=== PATIENT | female | born 1955 | race Caucasian/White ===

== ENCOUNTER → 2016-10-24 | Day surgery (SDC) | payer OTHER ==
[2016-09-26 11:13] VITALS: Ht 162.6 cm; Wt 116.2 kg
--- NOTE | 2016-09-26 11:42 | PAT Medication Instructions ---
Service Date Sep 26, 2016. Current Home Medication List Albuterol Inhaler (Ventolin Inhaler), 2 PUFFS INH Q4HR PRN Aspirin Enteric Coated (Ecotrin Or Generic), 81 MG PO QAM Ezetimibe (Zetia), 10 MG PO QAM Furosemide (Lasix), 40 MG PO DAILY PRN for edema Insulin Aspart (Novolog), 0 SC TIDM Insulin Glargine (Lantus *), 37 UNITS SC QAM Losartan Potassium (Cozaar), 100 MG PO QAM Meclizine HCl (Meclizine HCl), 1 TAB PO TID PRN for PRN Metformin Hcl (Glucophage), 1,000 MG PO BID Metoprolol Tartrate (Lopressor) (Lopressor), 50 MG PO BID Nifedipine Ext Rel (Procardia Xl Ext Rel), 60 MG PO QAM Simvastatin (Zocor), 80 MG PO QAM Medication Instructions For Your Scheduled Surgery - Check with surgeon for instructions: Aspirin Enteric Coated (Ecotrin Or Generic), 81 MG PO QAM - Hold the following medications 48 hours prior to surgery: Metformin Hcl (Glucophage), 1,000 MG PO BID - Hold the following medications the morning of surgery: Losartan Potassium (Cozaar), 100 MG PO QAM Insulin Aspart (Novolog), 0 SC TIDM Furosemide (Lasix), 40 MG PO DAILY PRN for edema Ezetimibe (Zetia), 10 MG PO QAM - Take the following medications the morning of surgery with a sip of water: Simvastatin (Zocor), 80 MG PO QAM Nifedipine Ext Rel (Procardia Xl Ext Rel), 60 MG PO QAM Metoprolol Tartrate (Lopressor) (Lopressor), 50 MG PO BID Meclizine HCl (Meclizine HCl), 1 TAB PO TID PRN for PRN (if needed) Albuterol Inhaler (Ventolin Inhaler), 2 PUFFS INH Q4HR PRN (bring with you to hospital morning of surgery) - Take the following medications as scheduled the night before surgery: Metoprolol Tartrate (Lopressor) (Lopressor), 50 MG PO BID Meclizine HCl (Meclizine HCl), 1 TAB PO TID PRN for PRN (if needed) Albuterol Inhaler (Ventolin Inhaler), 2 PUFFS INH Q4HR PRN (if needed) - For Insulin Dependent Diabetic patients: Test blood sugar A.M. of surgery. - If Blood sugar greater than 150, take half of your regular dose of: Insulin Glargine (Lantus *), take 18 units - If Blood sugar less than 150, do not take any: Insulin Glargine (Lantus *) If you have any questions please call us at [phone] (Shamika Zuluaga PA-C ) or [phone] or [phone]
[~2016-10-24] VITALS: Ht 162.6 cm; Wt 116.2 kg
[~2016-10-24] MED LIST: ALBUAER19 INH; ASPI81TA21 PO; ATROPINE SULFATE 0.1 MG/ML 5ML SYR IV PRN; BUPIVACAINE 0.5 % 5 MG/1 ML PF 10ML VIAL ONE; CEFAZOLIN IV 2,000 MG/60 ML D5W IV ONE; CLINDAMYCIN PHOS 150 MG/ML 2 ML VIAL IV SCH; EZET10TA63 PO; EpHEDrine SULFATE INJ 50 MG/ML AMP IV PRN; FENTANYL CITRATE INJ 50 MCG/1 ML 2 ML VIAL IV PRN; FENTANYL CITRATE INJ 50 MCG/1 ML 2 ML VIAL ONE; HYDR-5688 PO; INSDGIPEN SC; LACTATED RINGER'S 1000ML 1,000 ML IV SCH; LIDOCAINE 2% 20 MG/ML 5ML SYR ONE; LIDOCAINE HCL 1% 20 ML VIAL ONE; LOSA100T65 PO; LSX/40 PO; MECL1TAB40 PO; METF1000 PO; METO50TA16 PO; MIDAZOLAM HCL 1 MG/ML 2ML VIAL ONE; NIFE60TA57 PO; NURSING VERBAL MED ORDER ONE; NVLGI SC; ONDANSETRON INJ 2 MG/ML 2 ML VIAL IV PRN; OXYCODONE/ACETAMINOPHEN 5-325 TAB PO PRN; PROMETHAZINE HCL INJ 12.5 MG in SODIUM CHLORIDE 0.9% 50ML 50 ML IV PRN; PROMETHAZINE HCL INJ 25 MG/ML 1 ML VIAL ONE; PROPOFOL IV EMULSION 10 MG/ML 20 ML VIAL IV ONE; SIMV80TA2 PO; SODIUM CHLORIDE 0.9% 1000ML 1,000 ML IV SCH
--- NOTE | 2016-10-24 06:46 | History & Physical Bridge - SC ---
H&P Re-Evaluation Bridge Note: I have examined the patient, reviewed the History & Physical and in the interval since the performance of the History & Physical I have noted the following changes of clinical significance: No changes noted
[2016-10-24 07:36] VITALS: TEMP 36.8
--- NOTE | 2016-10-24 07:36 | [facility] Post Operative Brief Note ---
Immediate Operative Summary Operative Date Oct 24, 2016. Pre-Operative Diagnosis Left Carpal Tunnel Syndrome Post-Operative Diagnosis same Procedure(s) Performed Left Carpal Tunnel Release Surgeon Dr. Robert Altamirano Sample Book Maker Surgeon(s) Daniel Raya PA-C Estimated Blood Loss 0 Findings ABOVE Specimens none Anesthesia LOCAL IV SEDATION Complication(s) None Disposition
--- NOTE | 2016-10-24 07:51 | OPERATIVE REPORT ---
DATE OF OPERATION: 10/24/2016 PREOPERATIVE DIAGNOSIS: Left carpal tunnel syndrome. POSTOPERATIVE DIAGNOSIS: Same. PROCEDURE: Decompression median nerve release transverse carpal ligament, left wrist. SURGEON: Dr. Altamirano. CONVEYOR SYSTEM DISPATCHER: Daniel Raya PA-C. ANESTHESIOLOGIST: Dr. Roque. ANESTHESIA: Local with IV sedation. DRAINS: None. COMPLICATIONS: None. CONDITION: The patient tolerated the procedure well and returned to the recovery room in apparent satisfactory condition. INDICATIONS FOR SURGERY: Iveth is a 61-year-old female who had carpal tunnel complaints of left hand. Went over treatment options and elected to go ahead and proceed with surgery. We were concerned about her skin condition. She had significantly scaly eczema-type dermatitis to her hands both of them. We wanted to make sure we got it cleaned up the best we could and we felt we could accept the risk of a little bit of increased infection because of this condition. PROCEDURE: The patient was taken to the OR at which time she was placed supine on the operating table. The left hand was prepped and draped in the usual sterile fashion for this surgery. The anticipated incision site was infiltrated with 1% Xylocaine. A forearm tourniquet was placed on the arm and tourniquet was placed up to 250 mmHg. Incision was made vertically over the transverse carpal tunnel ligament. Dissection was done down until the palmar fascia was identified and divided with a 15-blade. The transverse carpal ligament was identified and also divided with the 15-blade and upbiting scissors. A small portion of the forearm fascia was divided also. Electrocautery was used to control any areas of bleeding. The nerve was freed up from any scar tissue and adequately decompressed. The wound then was copiously irrigated. It was closed then with interrupted 4-0 nylon sutures. Marcaine without Epinephrine was placed in the skin edges. It was closed in a layered fashion. We placed a sterile dressing of Xeroform, 4 x 4, volar splint, and an Carlos bandage. DISPOSITION: The patient was returned back to the recovery room in apparent satisfactory condition. I attest to the content of the Intraoperative Record and any orders documented therein. Any exceptio ns are noted below.
--- NOTE | 2016-10-24 08:30 | Discharge Instructions-SurgCtr ---
Discharge Instructions Visit Reason for Visit: Left Carpal Tunnel Syndrome Discharge Discharge Diagnosis / Problem: SAME ABOVE Discharge Goals Goal(s): Decrease discomfort, Improve function Medications Stopped Medications Name(s): ASA Metformin Activity Recommendations Activity Limitations: as noted below Lifting Limitations: until after follow-up appointment Exercise/Sports Limitations: until after follow-up appointment Shower/Bathe: keep incision dry Anesthesia . Post Anesthesia Instructions: If you have had General Anesthesia or IV Sedation: * Do not drive today. * Resume driving when surgeon permits. * Do not make important decisions or sign legal documents today. * Call surgeon for: 1. Temperature elevations greater than 101 degrees F. 2. Uncontrollable pain. 3. Excessive bleeding. 4. Persistent nausea and vomiting. 5. Medication intolerance (nausea, vomiting or rash). * For nausea and vomiting use only clear liquids such as: tea, soda, bouillon until nausea subsides, then gradually increase diet as tolerated. * If you have any concerns or questions, call your surgeon's office. If physician is unavailable and it is an emergency, call 911 or go to the nearest emergency room. . Instructions / Follow-Up Instructions / Follow-Up MEDICATIONS: * Resume previous medications unless instructed otherwise by your surgeon. * Always take pain medication on a full stomach or with food to avoid upset stomach. * Do not drink alcohol or drive while taking narcotics. * Ibuprofen or Tylenol may be taken if narcotic not needed. SPECIAL CARE INSTRUCTIONS: __ None _X_ Keep extremity elevated and iced x 48 hours; apply ice 20-30 minutes 8-10 times/day. May remove at night. __ Sling __24 hrs/day __ Remove at night __ Shoulder Immobilizer __ 24 hrs/day __ Remove at night _X_ Dressing _X_ Maintain until seen in office, may shower with plastic over site __ Remove dressings in 24-48 hours and then may shower __ Cover incisions with band-aids after showering __ Do not remove steri-strips Call physician if chills or temperature rises above 102 degrees or pain unrelieved by prescribed pain medications at . . Diet Recommendations Home Diet: resume previous diet Procedures Procedures Performed: Left Carpal Tunnel Release Pending Studies Studies pending at discharge: no Medical Emergencies . Who to Call and When: Medical Emergencies: If at any time you feel your situation is an emergency, please call 911 immediately. . Non-Emergent Contact Non-Emergency issues call your: Primary Care Provider . . "Provider Documentation" section prepared by Daniel Raya.
[2016-10-24 09:17] VITALS: BP 137/80; PULSE 56; O2SAT 96
--- NOTE | 2016-10-24 09:52 | Anesthesiology Progress Note ---
Anesthesia Post Op Note Date & Time Oct 24, 2016 at 09:51 Vital Signs Pain Intensity: 0 Vital Signs Past 12 Hours Date Time Temp Pulse Resp B/P Pulse Ox O2 Delivery O2 Flow Rate FiO2 10/24/16 09:17 56 16 137/80 96 Room Air 10/24/16 08:22 50 16 129/85 93 Room Air 10/24/16 07:36 36.8 54 16 126/68 92 Room Air 10/24/16 06:44 36.8 62 20 143/78 93 Room Air Notes Mental Status: alert / awake / arousable, participated in evaluation Pt Amnestic to Procedure: Yes Nausea / Vomiting: adequately controlled, improving with treatment Pain: adequately controlled Airway Patency, RR, SpO2: stable & adequate BP & HR: stable & adequate Hydration State: stable & adequate patient has known vertigo. she was experiencing these symptoms after surgery but is now feeling better. she was instructed to take her antivert at home and remain upright as supine worsens her condition. questions answered.
== END | disposition home or self-care (01) ==
LOC: X.SURG 06:21
PROVIDERS: ATTEND Orthopaedic Surgery
DX: G56.02 Carpal tunnel syndrome, left upper limb (principal); M25.532 Pain in left wrist; R20.0 Anesthesia of skin; Z90.710 Acquired absence of both cervix and uterus; E78.00 Pure hypercholesterolemia, unspecified; E10.9 Type 1 diabetes mellitus without complications; I10 Essential (primary) hypertension; J45.909 Unspecified asthma, uncomplicated; Z88.1 Allergy status to other antibiotic agents; Z88.0 Allergy status to penicillin; Z88.8 Allergy status to other drugs, medicaments and biological substances; Z88.5 Allergy status to narcotic agent; R60.0 Localized edema; E66.01 Morbid (severe) obesity due to excess calories

== ENCOUNTER → 2016-11-10 | Outpatient (CLI) | payer OTHER ==
[~2016-11-10] MED LIST changes: -ATROPINE SULFATE 0.1 MG/ML 5ML SYR IV PRN; -BUPIVACAINE 0.5 % 5 MG/1 ML PF 10ML VIAL ONE; -CEFAZOLIN IV 2,000 MG/60 ML D5W IV ONE; -CLINDAMYCIN PHOS 150 MG/ML 2 ML VIAL IV SCH; -EpHEDrine SULFATE INJ 50 MG/ML AMP IV PRN; -FENTANYL CITRATE INJ 50 MCG/1 ML 2 ML VIAL IV PRN; -FENTANYL CITRATE INJ 50 MCG/1 ML 2 ML VIAL ONE; -LACTATED RINGER'S 1000ML 1,000 ML IV SCH; -LIDOCAINE 2% 20 MG/ML 5ML SYR ONE; -LIDOCAINE HCL 1% 20 ML VIAL ONE; -MIDAZOLAM HCL 1 MG/ML 2ML VIAL ONE; -NURSING VERBAL MED ORDER ONE; -ONDANSETRON INJ 2 MG/ML 2 ML VIAL IV PRN; -OXYCODONE/ACETAMINOPHEN 5-325 TAB PO PRN; -PROMETHAZINE HCL INJ 12.5 MG in SODIUM CHLORIDE 0.9% 50ML 50 ML IV PRN; -PROMETHAZINE HCL INJ 25 MG/ML 1 ML VIAL ONE; -PROPOFOL IV EMULSION 10 MG/ML 20 ML VIAL IV ONE; -SODIUM CHLORIDE 0.9% 1000ML 1,000 ML IV SCH
--- NOTE | 2016-11-10 12:37 | DIAGNOSTIC IMAGING REPORT ---
LEFT LOWER EXTREMITY VENOUS DOPPLER HISTORY: Left leg pain and swelling. COMPARISON STUDY: Bilateral lower extremity venous Doppler 09/10/2016. FINDINGS: There is normal compressibility, flow, and augmentation within the left lower extremity deep venous system. There is again noted a 4.0 x 2.3 x 0.9 cm slightly complex popliteal cyst. There is subcutaneous edema within the left calf. A 4.4 x 1.4 x 2.6 cm left inguinal lymph node demonstrates a normal fatty hilum and a thin cortex. Therefore, this favors a benign versus reactive lymph node. IMPRESSION: No DVT within the left lower extremity. Electronically signed by: Chance Garcia M.D. 11/10/2016 12:35 PM Dictated Date/Time: 11/10/2016 12:33 PM
== END | disposition home or self-care (01) ==
LOC: C.ULTRBC 11:56
PROVIDERS: ATTEND Internal Medicine
DX: M79.605 Pain in left leg (principal)

== ENCOUNTER → 2016-12-27 | Outpatient (CLI) | payer OTHER ==
--- NOTE | 2016-12-27 11:51 | DIAGNOSTIC IMAGING REPORT ---
BILATERAL LOWER EXTREMITY ARTERIAL DOPPLER STUDY CLINICAL HISTORY: LEG PAIN, DECREASED PULSES COMPARISON STUDY: None. FINDINGS: The right ankle-brachial index measured with the posterior tibial artery was 0.99 and the dorsalis pedis was 0.03. The left ankle-brachial index with the posterior to artery was 1.15 and the dorsalis pedis artery was 1.0. Normal biphasic to triphasic waveforms and velocities seen within the bilateral common femoral, superficial femoral, popliteal, anterior tibial, and right posterior tibial arteries. Monophasic waveforms seen within the left posterior tibial artery, bilateral peroneal arteries, and bilateral dorsalis pedis arteries. No areas of occlusion identified. IMPRESSION: 1. No areas of occlusion identified within the bilateral lower extremity arterial system. 2. Monophasic waveforms seen within the bilateral peroneal arteries, left posterior tibial artery, and dorsalis pedis arteries. This consistent with diffuse atherosclerotic disease. 3. Abnormally low right ankle-brachial index measured with the dorsalis pedis artery at 0.03. However, the right ankle-brachial index measured with the posterior tibial artery was normal at 0.99. Electronically signed by: Chance Garcia M.D. 12/27/2016 11:50 AM Dictated Date/Time: 12/27/2016 11:43 AM
== END | disposition home or self-care (01) ==
LOC: C.ULTR 09:24
PROVIDERS: ATTEND Internal Medicine
DX: I87.8 Other specified disorders of veins (principal); M79.605 Pain in left leg; R09.89 Other specified symptoms and signs involving the circulatory and respiratory systems

== ENCOUNTER → 2016-12-28 | Outpatient (CLI) | payer OTHER ==
[2016-12-28 13:18] LABS: ESTIMATED AVERAGE GLUCOSE 183 mg/dl; HA1C FLAG Normal (Normal)
== END | disposition home or self-care (01) ==
LOC: C.LABBFT 09:16
PROVIDERS: ATTEND Nurse Practitioner Adult Health
DX: E11.8 Type 2 diabetes mellitus with unspecified complications (principal)

== ENCOUNTER → 2017-03-29 | Outpatient (CLI) | payer OTHER ==
[2017-03-29 12:13] LABS: BASO % 0.3 %; BASO ABS # 0.03 K/uL (0-0.2); COMPLETE YES; EOS % 3.2 %; HEMATOCRIT 49.6 % (37-47); IG% 0.2 %; LYMPH % 34.6 %; LYMPH ABS # 3.03 K/uL (1.2-3.4); MEAN CELL VOLUME 94.1 fL (80-100); MEAN CORPUSCULAR HEMOGLOBIN 30.9 pg (25-34); MEAN CORPUSCULAR HGB CONC 32.9 g/dl (32-36); MEAN PLATELET VOLUME 10.6 fL (7.4-10.4); MONO % 5.9 %; NEUT % 55.8 %; PLATELET COUNT 223 K/uL (130-400); RED BLOOD COUNT 5.27 M/uL (4.2-5.4); WHITE BLOOD COUNT 8.76 K/uL (4.8-10.8)
[2017-03-29 12:47] LABS: ESTIMATED AVERAGE GLUCOSE 209 mg/dl; HA1C FLAG Normal (Normal)
[2017-03-29 13:09] LABS: ALT/SGPT 16 U/L (12-78); AST/SGOT 14 U/L (15-37); BLOOD UREA NITROGEN 10 mg/dl (7-18); BUN/CREATININE RATIO 16.2 (10-20); CALCIUM 8.1 mg/dl (8.5-10.1); CARBON DIOXIDE 27 mmol/L (21-32); CHLORIDE 108 mmol/L (98-107); CREATININE 0.61 mg/dl (0.60-1.20); GLUCOSE 89 mg/dl (70-99); POTASSIUM 3.8 mmol/L (3.5-5.1); SODIUM 143 mmol/L (136-145)
[2017-03-29 13:20] LABS: ALB/GLOB RATIO 0.9 (0.9-2); ALKALINE PHOSPHATASE 82 U/L (45-117); CHOLESTEROL 138 mg/dl (0-200); CHOLESTEROL/HDL RATIO 2.6; HDL CHOLESTEROL 53 mg/dl; LDL CHOLESTEROL CALCULATED 68 mg/dl; TRIGLYCERIDES 85 mg/dl (0-150); VERY LOW DENSITY LIPOPROT CALC 17 mg/dl
== END | disposition home or self-care (01) ==
LOC: C.LABBFT 07:35
PROVIDERS: ATTEND Internal Medicine
DX: E11.8 Type 2 diabetes mellitus with unspecified complications (principal); E78.5 Hyperlipidemia, unspecified; I10 Essential (primary) hypertension; F17.200 Nicotine dependence, unspecified, uncomplicated

== ENCOUNTER → 2017-04-19 | Outpatient (CLI) | payer OTHER ==
[~2017-04-19] MED LIST changes: +OPTIRAY 320 IV PRN
--- NOTE | 2017-04-19 11:47 | DIAGNOSTIC IMAGING REPORT ---
CT ANGIOGRAM OF THE ABDOMEN AND PELVIS WITH BILATERAL LOWER EXTREMITY RUNOFF HISTORY: Peripheral arterial disease. Abnormal lower extremity Doppler study. TECHNIQUE: Multiaxial CT was of the abdomen, pelvis, bilateral lower extremities was performed following the use of intravenous contrast to evaluate the arterial systems. Maximal intensity projection images were also obtained. COMPARISON STUDY: Bilateral lower extremity Doppler 12/27/2016. FINDINGS: There is approximately 80% focal narrowing at the proximal celiac artery. The superior mesenteric, inferior mesenteric, and renal arteries are widely patent. Of note, there are 2 left renal arteries. Mild calcified plaque within the normal caliber abdominal aorta. No significant stenosis or occlusion within the bilateral iliac arteries. The bilateral common femoral, superficial femoral, popliteal arteries are widely patent. Focal calcified plaque at the takeoff of the right anterior tibial artery without significant stenosis. The bilateral anterior tibial, posterior tibial, and peroneal arteries demonstrate distal tapering and are overall small in caliber. This also includes the bilateral dorsalis pedis arteries. However, there is no occlusion. There is no significant atherosclerosis disease to result in significant stenosis. Mild bilateral lower extremity subcutaneous edema. Small bilateral popliteal cysts. The lung bases are clear. The visualized liver, gallbladder, spleen, pancreas, and left kidney are unremarkable. There are 2 adjacent hypodense lesions within the upper pole the right kidney. The 2 cm lesion anteriorly is consistent with a cyst. The 2.7 cm more posterior lesion demonstrates greater than expected Hounsfield units for a simple cyst. A 2 cm right adrenal gland nodules consistent with a benign adenoma. A 1.2 cm left adrenal gland nodule is technically indeterminate. No retroperitoneal lymphadenopathy. Normal bladder. The uterus is surgically absent. The visualized loops of bowel show no wall thickening or obstruction. Normal appendix. IMPRESSION: 1. Approximately 80% focal stenosis at the proximal celiac artery. 2. The bilateral anterior tibial, posterior tibial, peroneal arteries, and dorsalis pedis arteries demonstrate distal tapering and are overall small in caliber. However, there is no atherosclerotic disease to result in hemodynamically significant stenosis or occlusion. 3. There are 2 adjacent hypodense lesions within the upper pole the right kidney. The dominant 2.7 cm lesion does not clearly represent a simple cyst. Nonemergent renal ultrasound can be performed for further evaluation. 4. Bilateral adrenal gland nodules. The right adrenal nodule is consistent with a benign adenoma. The left adrenal gland nodule is technically indeterminate but also favors a benign adenoma. Electronically signed by: Chance Garcia M.D. 04/19/2017 11:45 AM Dictated Date/Time: 04/19/2017 11:31 AM
== END | disposition home or self-care (01) ==
LOC: C.CTS 09:39
PROVIDERS: ATTEND Internal Medicine
DX: I73.9 Peripheral vascular disease, unspecified (principal); I77.4 Celiac artery compression syndrome; N28.9 Disorder of kidney and ureter, unspecified; E27.9 Disorder of adrenal gland, unspecified

== ENCOUNTER → 2017-10-11 | Outpatient (CLI) | payer OTHER ==
[~2017-10-11] MED LIST changes: -HYDR-5688 PO; -OPTIRAY 320 IV PRN
[2017-10-11 12:19] LABS: BASO % 0.5 %; BASO ABS # 0.04 K/uL (0-0.2); COMPLETE YES; IG% 0.2 %; LYMPH % 30.6 %; LYMPH ABS # 2.52 K/uL (1.2-3.4); MEAN CELL VOLUME 96.1 fL (80-100); MEAN CORPUSCULAR HEMOGLOBIN 31.8 pg (25-34); MEAN CORPUSCULAR HGB CONC 33.1 g/dl (32-36); MEAN PLATELET VOLUME 10.8 fL (7.4-10.4); MONO % 7.3 %; NEUT % 57.4 %; PLATELET COUNT 196 K/uL (130-400); RED BLOOD COUNT 5.41 M/uL (4.2-5.4); WHITE BLOOD COUNT 8.24 K/uL (4.8-10.8)
[2017-10-11 12:41] LABS: ESTIMATED AVERAGE GLUCOSE 209 mg/dl; HA1C FLAG Normal (Normal)
[2017-10-11 12:42] LABS: ALT/SGPT 24 U/L (12-78); AST/SGOT 15 U/L (15-37); BLOOD UREA NITROGEN 15 mg/dl (7-18); BUN/CREATININE RATIO 22.4 (10-20); CALCIUM 8.5 mg/dl (8.5-10.1); CARBON DIOXIDE 29 mmol/L (21-32); CHLORIDE 105 mmol/L (98-107); CREATININE 0.66 mg/dl (0.60-1.20); GLUCOSE 123 mg/dl (70-99); SODIUM 138 mmol/L (136-145)
[2017-10-11 12:53] LABS: ALB/GLOB RATIO 0.8 (0.9-2); ALKALINE PHOSPHATASE 82 U/L (45-117); CHOLESTEROL 131 mg/dl (0-200); CHOLESTEROL/HDL RATIO 2.3; HDL CHOLESTEROL 57 mg/dl; LDL CHOLESTEROL CALCULATED 61 mg/dl; TRIGLYCERIDES 67 mg/dl (0-150); VERY LOW DENSITY LIPOPROT CALC 13 mg/dl
== END | disposition home or self-care (01) ==
LOC: C.LABBFT 07:07
PROVIDERS: ATTEND Internal Medicine
DX: E11.29 Type 2 diabetes mellitus with other diabetic kidney complication (principal)

== ENCOUNTER → 2017-11-01 | Outpatient (CLI) | payer OTHER ==
--- NOTE | 2017-11-02 15:06 | MAMMOGRAPHY REPORT ---
BILATERAL DIGITAL SCREENING MAMMOGRAM TOMOSYNTHESIS WITH CAD: 11/01/2017 CLINICAL HISTORY: Routine screening. Patient has no complaints. TECHNIQUE: Breast tomosynthesis in addition to standard 2D mammography was performed. Current study was also evaluated with a Computer Aided Detection (CAD) system. COMPARISON: Comparison is made to exams dated: 11/05/2013 mammogram, 10/09/2012 mammogram, 10/05/2011 mammogram, 09/20/2010 mammogram, 09/08/2009 mammogram - [facility], and 03/27/2008. BREAST COMPOSITION: The tissue of both breasts is almost entirely fatty. FINDINGS: There are grouped calcifications within a linear distribution in the right 9:00 breast, for which spo t magnification views are recommended for further evaluation. The remainder of both breasts are stable compared to prior exams, without suspicious masses, calcific ations, or areas of architectural distortion noted. Small circumscribed benign-appearing 7 mm mass w ithin the left upper inner quadrant is stable compared to prior exams. IMPRESSION: ACR BI-RADS CATEGORY 0: INCOMPLETE EVALUATION: NEED ADDITIONAL IMAGING EVALUATION Right breast calcifications, for which additional imaging evaluation is recommended. The patient daniela l be called to schedule an appointment. Approximately 10% of breast cancers are not detected with mammography. A negative mammographic report should not delay biopsy if a clinically suggestive mass is present. Florecita Newby M.D. /:11/01/2017 15:48:51 Tool Room Gear Machine Operator: Claudia KIM)(Cash), [facility] letter sent: Addl Imaging 0 BI-RADS Code: ACR BI-RADS Category 0: Incomplete Evaluation: Need Additional Imaging Evaluation
== END | disposition home or self-care (01) ==
LOC: C.MAMM 14:52
PROVIDERS: ATTEND Internal Medicine
DX: Z12.31 Encounter for screening mammogram for malignant neoplasm of breast (principal); R92.1 Mammographic calcification found on diagnostic imaging of breast

== ENCOUNTER → 2017-11-21 | Outpatient (CLI) | payer OTHER ==
--- NOTE | 2017-11-21 15:40 | MAMMOGRAPHY REPORT ---
UNILATERAL RIGHT DIGITAL DIAGNOSTIC MAMMOGRAM: 11/21/2017 CLINICAL HISTORY: Callback from screening mammogram for right breast calcifications. TECHNIQUE: Spot magnification right cc and ML views were obtained. COMPARISON: Comparison is made to exams dated: 11/01/2017 mammogram, 11/05/2013 mammogram, 10/09/2012 mammogram, 10/05/2011 mammogram, 09/20/2010 mammogram, and 09/08/2009 mammogram - [facility]. BREAST COMPOSITION: The tissue of the right breast is almost entirely fatty. FINDINGS: Spot magnification views of the right breast demonstrate grouped faint punctate calcificat ions within the right lateral breast at approximately 8:30 to 9:00, measuring 11 mm in extent. The c alcifications are linear in distribution. The calcifications are indeterminate and stereotactic biop sy is recommended for further evaluation. IMPRESSION: ACR BI-RADS CATEGORY 4: SUSPICIOUS Grouped calcifications in a linear distribution in the right 8:30 to 9:00 breast. The calcifications are indeterminate and stereotactic biopsy is recommended for further evaluation. A phone call was made to the physician's office to confirm faxed results were received. The patient has been verbally notified of the results. She tentatively schedule the biopsy [facility]. Approximately 10% of breast cancers are not detected with mammography. A negative mammographic report should not delay biopsy if a clinically suggestive mass is present. Florecita Newby M.D. /:11/21/2017 14:31:48 Mold Yarn Supervisor: Helen KIM)(Cash), [facility] letter sent: Abnormal 4/5 BI-RADS Code: ACR BI-RADS Category 4: Suspicious
== END | disposition home or self-care (01) ==
LOC: C.MAMM 13:21
PROVIDERS: ATTEND Internal Medicine
DX: R92.1 Mammographic calcification found on diagnostic imaging of breast (principal)

== ENCOUNTER → 2017-12-11 | Outpatient (CLI) | payer OTHER ==
--- NOTE | 2017-12-11 13:15 | Discharge Instructions ---
Discharge Instructions Procedure Procedure Date: Dec 11, 2017. Reason for visit: Right Calcifications. Discharge Discharge Date: Dec 11, 2017. Discharge Diagnosis: post right breast stereotactic guided biopsy Instructions Activity Recommendations: Additional Limitations (see below) Return to School/Work: no limitations Recommended Home Diet: No Limitations Provider Instructions: ACTIVITY RECOMMENDATIONS: * No lifting, pushing, pulling or exercising the affected side for three days. RETURN TO SCHOOL/WORK: * You may return to work/school after the procedure, but do not perform any strenuous activities for 24 to 48 hours. MEDICATIONS: * Tylenol (two 325 mg) every four to six hours if needed for mild pain (if not allergic to Tylenol). DIET: * Resume previous diet. SPECIAL CARE INSTRUCTIONS: * Keep biopsy site dry for 24 hours. May shower after 24 hours, but do not soak (bathe) incision. * May remove Tegaderm (plastic patch) tomorrow AFTER showering. * Leave the steri-strips on for one week. Allow the steri-strips to fall off by themselves. If not off after one week, you may remove them. You may place a Bandaid crosswise over the strips, if desired. * Apply ice 10 minutes on and 10 minutes off as needed. * Wear a bra at bedtime to sleep more comfortably for 2-3 days. * Your referring physician should have the results after approximately 5 to 7 business days. * Call for unusual bleeding, fever, drainage, etc or if you have any questions call [phone] during normal business hours or after hours call Dr Lin, . FOLLOW UP VISIT: Follow-up with Referring Physician as scheduled. Allergies Coded Allergies: Amoxicillin (Verified Allergy, Severe, SOB, RASH, 10/24/16) Penicillins (Verified Allergy, Severe, SOB, RASH, 10/24/16) RESPIRATORY DISTRESS & RASH Clarithromycin (Verified Allergy, Unknown, unknown, 10/24/16) Clindamycin (Verified Allergy, Unknown, UNKNOWN, 10/24/16) Fluconazole (Verified Allergy, Unknown, UNKNOWN, 10/24/16) Sulfamethoxazole w/Trimethoprim (Verified Allergy, Unknown, UNKNOWN, ) Codeine (Verified Adverse Reaction, Mild, ITCHING, NAUSEA, 10/24/16) Alanna Hernandez Recommendations: Call your doctor if: * Temperature above 101 degrees * Pain not relieved by pain medicine ordered * There is increased drainage or redness from any incision * You have any unanswered questions or concerns. Your Doctors Instructions noted above were prepared by provider Patricia Lin. Patient Signature Section: Patient Instructions Signature Page Iveth Maddie Patient (or Guardian) Signature/Date: I have read and understand the instructions given to me by my caregivers. Caregiver/RN/Doctor Signature/Date: The above-named patient and/or guardian has received patient instructions on this date. + Original Patient Signature Page (only) stays with chart. Please make copy for patient.
--- NOTE | 2017-12-11 15:25 | MAMMOGRAPHY REPORT ---
UNILATERAL RIGHT DIGITAL DIAGNOSTIC MAMMOGRAM: 12/11/2017 CLINICAL HISTORY: Status post stereotactic biopsy of linear punctate microcalcifications in the 8:00 to 9:00 anterior right breast. Please refer to the report from right breast stereotactic guided biopsy performed at the same time fo r full detail. IMPRESSION: POST PROCEDURE IMAGING FOR MARKER PLACEMENT Please refer to the report from right breast stereotactic guided biopsy performed at the same time fo r full detail. Approximately 10% of breast cancers are not detected with mammography. A negative mammographic report should not delay biopsy if a clinically suggestive mass is present. Patricia Lin M.D. ay/:12/11/2017 13:48:31 Gas Booster Engineer: Claudia MANNING(Natalie)(Cash), [facility] BI-RADS Code: Post Procedure Imaging For Marker Placement
== END | disposition home or self-care (01) ==
LOC: C.MAMM 12:34
PROVIDERS: ATTEND Internal Medicine
DX: R92.0 Mammographic microcalcification found on diagnostic imaging of breast (principal); N60.91 Unspecified benign mammary dysplasia of right breast

== ENCOUNTER → 2017-12-27 | Outpatient (CLI) | payer OTHER ==
[2017-12-27 13:32] LABS: BLOOD UREA NITROGEN 15 mg/dl (7-18); CALCIUM 8.4 mg/dl (8.5-10.1); CARBON DIOXIDE 29 mmol/L (21-32); CREATININE 0.78 mg/dl (0.60-1.20); GLUCOSE 275 mg/dl (70-99); POTASSIUM 3.9 mmol/L (3.5-5.1); SODIUM 139 mmol/L (136-145)
[2017-12-27 16:05] LABS: CREATININE RANDOM URINE 64.3 mg/dl
== END | disposition home or self-care (01) ==
LOC: C.LABBFT 08:35
PROVIDERS: ATTEND Nurse Practitioner Adult Health
DX: E11.29 Type 2 diabetes mellitus with other diabetic kidney complication (principal); Z79.4 Long term (current) use of insulin

== ENCOUNTER → 2018-01-24 | Outpatient (CLI) | payer OTHER ==
[~2018-01-24] MED LIST changes: +ASPI-319 PO; -ASPI81TA21 PO; +INSDGI SC; +IRBE-39 PO; +METF500T5 PO; +NVLG SQ; +VNTHFA/IN INH
--- NOTE | 2018-01-24 11:17 | DIAGNOSTIC IMAGING REPORT ---
RIGHT FIFTH TOE 3 VIEWS HISTORY: S99.921A Toe injury, right, initial encounter RIGHT FIFTH COMPARISON: None. FINDINGS: Oblique fracture within the neck of the proximal phalanx of the right fifth toe. Possible small nondisplaced fracture at the base of the distal phalanx of the fifth toe. These are not significantly displaced. No dislocation. Soft tissue swelling within the fifth toe. No radiopaque foreign bodies. IMPRESSION: 1. Oblique fracture at the proximal phalanx of the right fifth toe. 2. Possible small nondisplaced fracture at the distal phalanx of the fifth toe. Electronically signed by: Chance Garcia M.D. 01/24/2018 11:16 AM Dictated Date/Time: 01/24/2018 11:14 AM
--- NOTE | 2018-01-24 11:21 | DIAGNOSTIC IMAGING REPORT ---
R FOOT MIN 3 VIEWS ROUTINE CLINICAL HISTORY: Right toe injury. COMPARISON: None FINDINGS: Tarsometatarsal joints are intact. There is a nondisplaced fracture within the mid to distal shaft of the proximal phalanx of the right fifth toe. This fracture appears acute to subacute. A probable fracture within the distal phalanx of right fifth toe is better depicted on the right fifth toe radiographs. No additional fractures are present. 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 There is mild plantar and minimal posterior calcaneal spurring. IMPRESSION: 1. Nondisplaced fracture within the mid to distal shaft of the proximal phalanx of the right fifth toe which appears subacute to acute. 2. The possible nondisplaced fracture within the distal phalanx of the right fifth toe is better depicted on the right fifth radiographs. Electronically signed by: Branden Hassan M.D. 01/24/2018 11:20 AM Dictated Date/Time: 01/24/2018 11:17 AM
== END | disposition home or self-care (01) ==
LOC: C.RAD1850 10:29
PROVIDERS: ATTEND Nurse Practitioner
DX: S92.514A Nondisplaced fracture of proximal phalanx of right lesser toe(s), initial encounter for closed fracture (principal); X58.XXXA Exposure to other specified factors, initial encounter

== ENCOUNTER 2018-05-14 16:26 | Inpatient (IN) | payer OTHER ==
[~2018-05-14] VITALS: Ht 165.1 cm; Wt 114.0 kg
[~2018-05-14 16:26] MED LIST changes: -ALBUAER19 INH; +HYDR-5688 PO; -INSDGIPEN SC; -LOSA100T65 PO; -METF1000 PO; -NIFE60TA57 PO; -NVLGI SC; +ONDA4TAB46 PO
[2018-05-14] MEDS ORDERED: SODIUM CHLORIDE 0.9% 1000ML 1,000 ML IV STA (16:53)
[2018-05-14 17:29] LABS: BASO % 0.3 %; BASO ABS # 0.03 K/uL (0-0.2); EOS % 3.9 %; EOS ABS # 0.37 K/uL (0-0.5); HEMATOCRIT 46.6 % (37-47); HEMOGLOBIN 15.1 g/dL (12.0-16.0); IG# 0.03 K/uL (0.00-0.02); MEAN CELL VOLUME 97.3 fL (80-100); MEAN CORPUSCULAR HEMOGLOBIN 31.5 pg (25-34); MEAN CORPUSCULAR HGB CONC 32.4 g/dl (32-36); MEAN PLATELET VOLUME 9.7 fL (7.4-10.4); MONO % 7.2 %; MONO ABS # 0.68 K/uL (0.11-0.59); NEUT % 55.3 %; NEUT ABS # 5.18 K/uL (1.4-6.5); PLATELET COUNT 220 K/uL (130-400); RED CELL DISTRIBUTION WIDTH CV 15.1 % (11.5-14.5); RED CELL DISTRIBUTION WIDTH SD 53.8 fL (36.4-46.3); WHITE BLOOD COUNT 9.39 K/uL (4.8-10.8)
[2018-05-14] MEDS ORDERED: NLV/20 PO (17:39)
[2018-05-14] MEDS ORDERED: ADENOSINE IV SOLN 3 MG/ML 2 ML VIAL ONE (17:41)
[2018-05-14] MEDS ORDERED: DILTIAZEM BOLUS / DRIP IV STA ×2 (17:45→18:56)
--- NOTE | 2018-05-14 17:55 | DIAGNOSTIC IMAGING REPORT ---
CHEST ONE VIEW PORTABLE HISTORY: 63 years-old Female Chest Pain acute atypical chest pain with tachycardia COMPARISON: Chest radiograph 07/13/2014 TECHNIQUE: Portable AP view of the chest FINDINGS: Cardiac silhouette is mildly enlarged. Pulmonary vascular congestion with mild interstitial coarsening. No pneumothorax, pleural effusion or lobar airspace consolidation. Bones of the chest appear grossly intact. IMPRESSION: 1. Cardiomegaly with pulmonary vascular congestion. 2. Diffuse bilateral reticular interstitial opacities. Differential considerations would include mild pulmonary edema or chronic changes. The above report was generated using voice recognition software. It may contain grammatical, syntax or spelling errors. Electronically signed by: Maicol Luther M.D. 05/14/2018 5:54 PM Dictated Date/Time: 05/14/2018 5:52 PM
[2018-05-14 17:57] LABS: CALCIUM 8.5 mg/dl (8.5-10.1); CKMB 6.1 ng/ml (0.5-3.6); CREATININE 0.7 mg/dl (0.60-1.20)
[2018-05-14] MEDS ORDERED: DILTIAZEM BOLUS FROM BAG IV ONE (18:00)
[2018-05-14] MEDS: DILTIAZEM HCL INJ 125 MG in DEXTROSE 5% 100ML IV PRN ×2 (18:06→18:55)
[2018-05-14] MEDS ORDERED: ONDANSETRON 4 MG TAB PO PRN (19:00)
[2018-05-14] MEDS ORDERED: MAGNESIUM HYDROXIDE SUSP 30 ML UDC PO PRN (19:00)
[2018-05-14] MEDS ORDERED: ALBUTEROL HFA 8 GM INHALER INH PRN (19:00)
[2018-05-14] MEDS ORDERED: ACETAMINOPHEN 325 MG TAB PO PRN (19:00)
[2018-05-14] MEDS ORDERED: ONDANSETRON INJ 2 MG/ML 2 ML VIAL IV PRN (19:00)
[2018-05-14] MEDS ORDERED: FUROSEMIDE 40 MG TAB PO PRN (19:00)
--- NOTE | 2018-05-14 19:20 | History and Physical ---
History & Physical Date & Time of Service: May 14, 2018 at 19:07 Chief Complaint: Rapid Heart Beat Primary Care Physician: Jimbo Srivastava M.D. History of Present Illness Source: patient 63 y/o F c/o SOB. Pt states that since Sunday, she has been SOB with exertion only and started to have LE swelling. She has no prior hx of SOB. SOB resolves if she stops moving. She had a bit of chest tightness today. She is also SOB if she lies flat, which is new. Pt denies any palpitations since the SOB started, but she has had 3 episodes since February of palpitations. The first only lasted about 10 minutes, but the second was about 4 hours and the third about 6 hours. These all eventually resolved spontaneously. Pt has felt well otherwise. Pt denies fever, abd pain, n/v/c/d, LE pain. She has been able to eat without issue. Pt states she feels improved at this time. She has not been OOB to gauge her SOB, but "my heart is beating less heavy now". Pt has seen Dr. Rapp in the past for PVCs, but no other cardiac hx. Aspirin 81mg is for prevention only. Past Medical/Surgical History Medical Problems: (1) Ataxia (2) Atrial fibrillation with RVR (3) Left facial numbness (4) TIA (transient ischemic attack) (5) Vertigo (6) Weakness generalized DM Hyperlipidemia HTN COPD PVCs Family History Family history was reviewed; no changes noted. Denies [place] or afib Sister with "a hole in her heart" Another sister with "murmur or valve issue" Social History Smoking Status: Current Every Day Smoker (1ppd) Alcohol Use: none Drug Use: none Occupational Status: employed Immunizations History of Influenza Vaccine: Yes History of Tetanus Vaccine?: Yes History of Pneumococcal: Yes History of Hepatitis B Vaccine: No Allergies Coded Allergies: Amoxicillin (Verified Allergy, Severe, SOB, RASH, 02/21/18) Penicillins (Verified Allergy, Severe, SOB, RASH, 02/21/18) RESPIRATORY DISTRESS & RASH Clarithromycin (Verified Allergy, Unknown, unknown, 02/21/18) Clindamycin (Verified Allergy, Unknown, UNKNOWN, 02/21/18) Fluconazole (Verified Allergy, Unknown, UNKNOWN, 02/21/18) Sulfamethoxazole w/Trimethoprim (Verified Allergy, Unknown, UNKNOWN, ) Codeine (Verified Adverse Reaction, Mild, ITCHING, NAUSEA, 02/21/18) Home Medications Scheduled Aspirin Enteric Coated (Ecotrin Or Generic), 81 MG PO QAM Ezetimibe (Zetia), 10 MG PO QAM Insulin Aspart (Novolog), SQ TIDM Insulin Glargine (Lantus), 42 UNITS SC QAM Irbesartan (Avapro), 300 MG PO DAILY Metformin Hcl Er (Glucophage Er), 500 MG PO BID Metoprolol Tartrate (Lopressor) (Lopressor), 50 MG PO BID Simvastatin (Zocor), 80 MG PO QAM Tamoxifen Citrate (Tamoxifen Citrate), 20 MG PO DAILY Scheduled PRN Albuterol Hfa (Ventolin Hfa), 2 PUFFS INH Q6H PRN for Shortness of Breath Furosemide (Lasix), 40 MG PO DAILY PRN for edema Meclizine HCl (Meclizine HCl), 1 TAB PO TID PRN for PRN Ondansetron Hcl (Zofran), 4 MG PO q 4 hrs PRN for Nausea Review of Systems Pertinent positives and negatives reviewed in HPI--all others negative Physical Exam Vital Signs Date Time Temp Pulse Resp B/P (MAP) Pulse Ox O2 Delivery O2 Flow Rate FiO2 05/14/18 18:46 136/97 05/14/18 18:45 135 17 98 Room Air 05/14/18 18:45 135 17 136/97 98 Nasal Cannula 2.0 05/14/18 18:31 149/114 05/14/18 18:30 135 23 149/114 98 Nasal Cannula 2.0 05/14/18 18:30 135 23 98 05/14/18 18:15 136 19 141/96 97 Nasal Cannula 2.0 05/14/18 18:11 124/89 05/14/18 18:06 144/90 05/14/18 18:00 137 18 135/95 05/14/18 17:51 137 21 144/102 92 Room Air 05/14/18 17:47 136 20 145/100 92 Room Air 05/14/18 17:44 135/100 Room Air 05/14/18 17:41 136 32 142/109 Room Air 05/14/18 17:37 137 05/14/18 17:36 137 26 143/109 Room Air 05/14/18 16:35 36.9 138 20 165/102 92 Room Air General Appearance: WD/WN, no apparent distress Head: normocephalic, atraumatic Eyes: normal inspection, sclerae normal Respiratory/Chest: normal breath sounds, no respiratory distress Cardiovascular: no edema, + tachycardia Abdomen/GI: non tender, soft Extremities/Musculoskelatal: no calf tenderness, + pedal edema (1+ pitting) Neurologic/Psych: alert, normal mood/affect, oriented x 3 Skin: normal color, warm/dry Diagnostics Laboratory Results Results Past 24 Hours Test 05/14/18 17:00 05/14/18 18:46 Range/Units White Blood Count 9.39 4.8-10.8 K/uL Red Blood Count 4.79 4.2-5.4 M/uL Hemoglobin 15.1 12.0-16.0 g/dL Hematocrit 46.6 37-47 % Mean Corpuscular Volume 97.3 80-100 fL Mean Corpuscular Hemoglobin 31.5 25-34 pg Mean Corpuscular Hemoglobin Concent 32.4 32-36 g/dl Platelet Count 220 130-400 K/uL Mean Platelet Volume 9.7 7.4-10.4 fL Neutrophils (%) (Auto) 55.3 % Lymphocytes (%) (Auto) 33.0 % Monocytes (%) (Auto) 7.2 % Eosinophils (%) (Auto) 3.9 % Basophils (%) (Auto) 0.3 % Neutrophils # (Auto) 5.18 1.4-6.5 K/uL Lymphocytes # (Auto) 3.10 1.2-3.4 K/uL Monocytes # (Auto) 0.68 0.11-0.59 K/uL Eosinophils # (Auto) 0.37 0-0.5 K/uL Basophils # (Auto) 0.03 0-0.2 K/uL RDW Standard Deviation 53.8 36.4-46.3 fL RDW Coefficient of Variation 15.1 11.5-14.5 % Immature Granulocyte % (Auto) 0.3 % Immature Granulocyte # (Auto) 0.03 0.00-0.02 K/uL Sodium Level 142 136-145 mmol/L Potassium Level 4.0 3.5-5.1 mmol/L Chloride Level 107 98-107 mmol/L Carbon Dioxide Level 30 21-32 mmol/L Anion Gap 5.0 3-11 mmol/L Blood Urea Nitrogen 14 7-18 mg/dl Creatinine 0.70 0.60-1.20 mg/dl Est Creatinine Clear Calc Drug Dose 109.1 ml/min Estimated GFR () 106.9 Estimated GFR (Non- 92.2 BUN/Creatinine Ratio 19.3 10-20 Random Glucose 95 70-99 mg/dl Calcium Level 8.5 8.5-10.1 mg/dl Total Creatine Kinase 109 26-192 U/L Creatine Kinase MB 6.1 0.5-3.6 ng/ml Creatine Kinase MB Ratio 5.6 0-3.0 Troponin I 0.022 0-0.045 ng/ml Diagnostic Radiology CXR: 1. Cardiomegaly with pulmonary vascular congestion. 2. Diffuse bilateral reticular interstitial opacities. Differential considerations would include mild pulmonary edema or chronic changes. Impression Assessment and Plan 63 y/o F who was admitted on 05/14 with new onset afib with RVR CASTILLO: likely related to afib with RVR Adenosine -> cardizem drip Rhythm is improved but still with rate control issues, titrate as needed ECHO pending Trop neg x1, serials pending TSH pending CHADS-VASC is 3, heparin drip for now and can discuss ongoing anticoagulation pending insurance coverage Cardiology c/s pending, follows with Dr. Rapp prior DM: stable, SSI PRN with home lantus and metformin dosing A1c, lipids pending HTN: stable, continue home meds COPD: stable, not in exacerbation CAD prevention: aspirin 81mg Other: Full code, does not want prolonged mechanical life support, feeding tubes , etc DM AHA diet Heparin for DVT proph Resuscitation Status VTE Prophylaxis Will order VTE Prophylaxis: Yes
[2018-05-14] MEDS ORDERED: HEPARIN 25000 UNIT/500 ML D5W ONE (19:38)
[2018-05-14] MEDS: HEPARIN SOD (PORCINE) 1000 UNIT/ML 10 ML VIAL ONE ×2 (19:42→19:52)
[2018-05-14 19:56] LABS: PTT PATIENT 25.1 SECONDS (21.0-31.0)
[2018-05-14 20:28] VITALS: BP 109/78; PULSE 137; TEMP 36.6; O2SAT 93; BMI 45.6
[2018-05-14] MEDS ORDERED: MECLIZINE HCL 12.5 MG TAB PO PRN (20:45)
[2018-05-14] MEDS: HEPARIN 25,000 UNIT/500ML D5W 500 ML IV SCH (20:45)
[2018-05-14] MEDS ORDERED: GLUCAGON FOR INJ 1 MG VIAL IM PRN (21:00)
[2018-05-14] MEDS ORDERED: DEXTROSE 50% 50 ML SYR IV PRN (21:00)
[2018-05-14] MEDS ORDERED: CARBOHYDRATES FOR HYPOGLYCEMIA PO PRN (21:00)
[2018-05-14] MEDS ORDERED: GLUCOSE 10 TABS/TUBE PO PRN (21:00)
[2018-05-14] MEDS ORDERED: GLUCOSE 40% GEL 15 GM TUBE PO PRN (21:00)
--- NOTE | 2018-05-14 21:47 | EMERGENCY ROOM VISIT NOTE ---
History Report prepared by Johanne: Gem Hinojosa Under the Supervision of: Dr. Joe Dietrich D.O. First contact with patient: 16:39 Chief Complaint: CARDIAC ASSESSMENT Stated Complaint: RAPID HEART BEAT History of Present Illness The patient is a 63 year old female who presents to the Emergency Room with complaints of palpitations. She states she went to see her PCP earlier today for increased swelling in her legs. She had an EKG and was told to come to the ED for further evaluation. The patient complains of an increased heart rate and shortness of breath on exertion. She states she has a history of previous PVC' s. She does not take daily blood thinners. Pt denies headache, change in vision , fevers, chest pain, nausea, vomiting, diarrhea, pain with urination, and melena. 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 A total of 10 systems reviewed and were otherwise negative. Past Medical & Surgical Medical Problems: (1) Atrial fibrillation with RVR (2) Vertigo Family History Diabetes mellitus Hypertension Social History Smoking Status: Current Every Day Smoker Alcohol Use: none Drug Use: none Marital Status: single Housing Status: lives with family Occupation Status: employed Current/Historical Medications Scheduled Aspirin Enteric Coated (Ecotrin Or Generic), 81 MG PO QAM Ezetimibe (Zetia), 10 MG PO QAM Insulin Aspart (Novolog), SQ TIDM Insulin Glargine (Lantus), 42 UNITS SC QAM Irbesartan (Avapro), 300 MG PO DAILY Metformin Hcl Er (Glucophage Er), 500 MG PO BID Metoprolol Tartrate (Lopressor) (Lopressor), 50 MG PO BID Simvastatin (Zocor), 80 MG PO QAM Tamoxifen Citrate (Tamoxifen Citrate), 20 MG PO DAILY Scheduled PRN Albuterol Hfa (Ventolin Hfa), 2 PUFFS INH Q6H PRN for Shortness of Breath Furosemide (Lasix), 40 MG PO DAILY PRN for edema Meclizine HCl (Meclizine HCl), 1 TAB PO TID PRN for PRN Ondansetron Hcl (Zofran), 4 MG PO q 4 hrs PRN for Nausea Allergies Coded Allergies: Amoxicillin (Verified Allergy, Severe, SOB, RASH, 02/21/18) Penicillins (Verified Allergy, Severe, SOB, RASH, 02/21/18) RESPIRATORY DISTRESS & RASH Clarithromycin (Verified Allergy, Unknown, unknown, 02/21/18) Clindamycin (Verified Allergy, Unknown, UNKNOWN, 02/21/18) Fluconazole (Verified Allergy, Unknown, UNKNOWN, 02/21/18) Sulfamethoxazole w/Trimethoprim (Verified Allergy, Unknown, UNKNOWN, ) Codeine (Verified Adverse Reaction, Mild, ITCHING, NAUSEA, 02/21/18) Physical Exam Vital Signs Date Time Temp Pulse Resp B/P (MAP) Pulse Ox O2 Delivery O2 Flow Rate FiO2 05/14/18 18:46 136/97 05/14/18 18:45 135 17 98 Room Air 05/14/18 18:45 135 17 136/97 98 Nasal Cannula 2.0 05/14/18 18:31 149/114 05/14/18 18:30 135 23 149/114 98 Nasal Cannula 2.0 05/14/18 18:30 135 23 98 05/14/18 18:15 136 19 141/96 97 Nasal Cannula 2.0 05/14/18 18:11 124/89 05/14/18 18:06 144/90 05/14/18 18:00 137 18 135/95 05/14/18 17:51 137 21 144/102 92 Room Air 05/14/18 17:47 136 20 145/100 92 Room Air 05/14/18 17:44 135/100 Room Air 05/14/18 17:41 136 32 142/109 Room Air 05/14/18 17:37 137 05/14/18 17:36 137 26 143/109 Room Air 05/14/18 16:35 36.9 138 20 165/102 92 Room Air Physical Exam GENERAL: Sitting up in bed, alert, well appearing, well nourished, no distress, non-toxic EYE EXAM: normal conjunctiva. OROPHARYNX: no exudate, no erythema, lips, buccal mucosa, and tongue normal and mucous membranes are moist NECK: supple, no nuchal rigidity, no adenopathy, non-tender LUNGS: Course at the bilateral bases. Normal chest wall mechanics HEART: Tachycardic, S1 normal and S2 normal ABDOMEN: abdomen soft, non-tender, normo-active bowel sounds, no masses, no rebound or guarding. BACK: Back is symmetrical on inspection and there is no deformity, no midline tenderness, no CVA tenderness. SKIN: no rashes and no bruising UPPER EXTREMITIES: upper extremities are grossly normal. LOWER EXTREMITIES: Bilateral pitting edema. NEURO EXAM: Normal sensorium, cranial nerves II-XII grossly intact, normal speech, no gross weakness of arms, no gross weakness of legs. Gross sensation intact. Medical Decision & Procedures ER Provider Diagnostic Interpretation: Radiology results as stated below per my review and the radiologist's interpretation: CHEST ONE VIEW PORTABLE HISTORY: 63 years-old Female Chest Pain acute atypical chest pain with tachycardia COMPARISON: Chest radiograph 07/13/2014 TECHNIQUE: Portable AP view of the chest FINDINGS: Cardiac silhouette is mildly enlarged. Pulmonary vascular congestion with mild interstitial coarsening. No pneumothorax, pleural effusion or lobar airspace consolidation. Bones of the chest appear grossly intact. IMPRESSION: 1. Cardiomegaly with pulmonary vascular congestion. 2. Diffuse bilateral reticular interstitial opacities. Differential considerations would include mild pulmonary edema or chronic changes. The above report was generated using voice recognition software. It may contain grammatical, syntax or spelling errors. Electronically signed by: Maicol Luther M.D. 05/14/2018 5:54 PM Laboratory Results 05/14/18 17:00 Red Blood Count 4.79, Mean Corpuscular Volume 97.3, Mean Corpuscular Hemoglobin 31.5, Mean Corpuscular Hemoglobin Concent 32.4, Mean Platelet Volume 9.7, Neutrophils (%) (Auto) 55.3, Lymphocytes (%) (Auto) 33.0, Monocytes (%) (Auto) 7.2, Eosinophils (%) (Auto) 3.9, Basophils (%) (Auto) 0.3, Neutrophils # (Auto) 5.18, Lymphocytes # (Auto) 3.10, Monocytes # (Auto) 0.68, Eosinophils # (Auto) 0.37, Basophils # (Auto) 0.03 05/14/18 17:00 Test 05/14/18 17:00 White Blood Count 9.39 K/uL (4.8-10.8) Red Blood Count 4.79 M/uL (4.2-5.4) Hemoglobin 15.1 g/dL (12.0-16.0) Hematocrit 46.6 % (37-47) Mean Corpuscular Volume 97.3 fL (80-100) Mean Corpuscular Hemoglobin 31.5 pg (25-34) Mean Corpuscular Hemoglobin Concent 32.4 g/dl (32-36) Platelet Count 220 K/uL (130-400) Mean Platelet Volume 9.7 fL (7.4-10.4) Neutrophils (%) (Auto) 55.3 % Lymphocytes (%) (Auto) 33.0 % Monocytes (%) (Auto) 7.2 % Eosinophils (%) (Auto) 3.9 % Basophils (%) (Auto) 0.3 % Neutrophils # (Auto) 5.18 K/uL (1.4-6.5) Lymphocytes # (Auto) 3.10 K/uL (1.2-3.4) Monocytes # (Auto) 0.68 K/uL (0.11-0.59) Eosinophils # (Auto) 0.37 K/uL (0-0.5) Basophils # (Auto) 0.03 K/uL (0-0.2) RDW Standard Deviation 53.8 fL (36.4-46.3) RDW Coefficient of Variation 15.1 % (11.5-14.5) Immature Granulocyte % (Auto) 0.3 % Immature Granulocyte # (Auto) 0.03 K/uL (0.00-0.02) Anion Gap 5.0 mmol/L (3-11) Est Creatinine Clear Calc Drug Dose 109.1 ml/min Estimated GFR () 106.9 Estimated GFR (Non- 92.2 BUN/Creatinine Ratio 19.3 (10-20) Calcium Level 8.5 mg/dl (8.5-10.1) Total Creatine Kinase 109 U/L (26-192) Creatine Kinase MB 6.1 ng/ml (0.5-3.6) Creatine Kinase MB Ratio 5.6 (0-3.0) Laboratory results per my review. Medications Administered Medications (Trade) Dose Ordered Sig/Deric Route Start Time Stop Time Status Last Admin Dose Admin Sodium Chloride 1,000 ml @ 999 mls/hr Q1H1M STAT IV 05/14/18 16:53 05/14/18 17:53 DC 05/14/18 16:53 999 MLS/HR Adenosine (Adenosine Iv) 6 mg STK-MED ONCE .ROUTE 05/14/18 17:41 05/14/18 17:42 DC 05/14/18 17:41 6 MG Diltiazem HCl (Cardizem Bolus From Bag) 10 mg 1800 ONCE IV 05/14/18 18:00 05/14/18 18:01 DC 05/14/18 18:00 10 MG Diltiazem HCl 125 mg/Dextrose 125 ml @ 0 mls/hr Q0M PRN IV 05/14/18 18:00 06/13/18 17:59 05/14/18 18:55 10 MLS/HR ECG Per My Interpretation Indication: palpitations Rate (beats per minute): 137 Rhythm: other (atrial tachycardia) Findings: ST depression (Lateral, inferior), other (normal axis) ED Course ED COURSE: Vital signs were reviewed and showed normal vital signs. The patients medical record was reviewed The above diagnostic studies were performed and reviewed. ED treatments and interventions as stated above. 1644: The patient was evaluated in room C3. A complete history and physical examination was performed. 1653: NSS 1000 ml @ 999 mls/hr IV. 1741: Adenosine 6 mg IV. 1745: Diltiazem Bolus IV. 1745: We will place her on a Cardizem drip and bolus. 1800: Diltiazem HCl 125 mg/Dextrose 125 ml @ 0 mls/hr IV, Diltiazem 10 mg IV. 1813: I discussed the patients case with Dr. Phillips, [facility] Hospitalist. The patient will be further evaluated. 1830: Upon reevaluation, the patient is resting comfortably. I discussed my findings with the patient and she understands and agrees with the treatment plan. Based on the patients age, coexisting illnesses, exam and lab findings the decision to treat as an inpatient was made. The patient remained stable while under my care. The patient will be evaluated for further management. Medical Decision Differential diagnosis includes etiologies such as premature contractions, electrolyte abnormality, cardiac dysrhythmia, thyroid dysfunction, pulmonary embolism, infection, gastrointestinal, as well as others were entertained. Patient is a 63-year-old female who presents the ER for atrial flutter at a rate of 130s. She does have diffuse edema in the lower extremities and signs of CHF on chest x-ray. Patient was initially given 6 more grams of adenosine as the EKG did appear to be a sinus tach and this broke after 12 mg IV into atrial flutter and resumed. Patient was started on a Cardizem drip and bolus. Troponin was negative. CBC along with BMP was unremarkable. Updated patient at bedside. Discussed with internal medicine patient was admitted for further workup of atrial flutter. She had no chest pain while at rest. Medication Reconcilliation Current Medication List: was personally reviewed by me Blood Pressure Screening Patient's blood pressure: Elevated blood pressure Blood pressure disposition: Elevated BP felt to be situational Consults Time Called: 1809 Consulting Physician: Dr. Phillips, [facility] Returned Call: [phone] I discussed the patients case with Dr. Phillips, [facility]. The patient will be further evaluated. Impression Primary Impression: Atrial flutter with rapid ventricular response Critical Care I have personally spent 35 minutes of critical care time in the direct management of this patient. This includes bedside care, interpretation of diagnostic studies, and testing, discussion with consultants, patient, and family members, and other required patient management activities. This 35 minutes is in excess of all separately billable procedures. Scribe Attestation The scribe's documentation has been prepared under my direction and personally reviewed by me in its entirety. I confirm that the note above accurately reflects all work, treatment, procedures, and medical decision making performed by me. Departure Information Dispostion Being Evaluated By Hospitalist Referrals Jimbo Srivastava M.D. (PCP) Patient Instructions [facility]
[2018-05-14] MEDS: METFORMIN HCL 500 MG TABCR PO SCH (23:34)
[2018-05-14] MEDS: METOPROLOL TARTRATE 50 MG TAB PO SCH (23:35)
[2018-05-14 23:44] VITALS: BP 131/71; PULSE 134; TEMP 36.3; O2SAT 86
[2018-05-15] VITALS (10 sets, daily range): BP systolic 100–154; BP diastolic 60–83; PULSE 65–136; TEMP 36.5–37; O2SAT 85–96; BMI 46.1
[2018-05-15] MEDS: METFORMIN HCL 500 MG TABCR PO SCH (02:15)
[2018-05-15] MEDS: DILTIAZEM HCL INJ 125 MG in DEXTROSE 5% 100ML IV PRN ×2 (03:18→19:11)
[2018-05-15] MEDS ORDERED: HEPARIN IV BOLUS 7,000 UNIT in SYRINGE 0 ML IV ONE (03:45)
[2018-05-15] MEDS: METOPROLOL TARTRATE 50 MG TAB PO SCH ×2 (07:29→21:42)
[2018-05-15] MEDS: SIMVASTATIN 80 MG TAB PO SCH (07:30)
[2018-05-15] MEDS: ASPIRIN 81 MG ECTAB PO SCH (07:30)
[2018-05-15] MEDS: IRBESARTAN 150 MG TAB PO SCH (07:30)
[2018-05-15] MEDS: EZETIMIBE 10MG TAB PO SCH (07:30)
[2018-05-15] MEDS: TAMOXIFEN CITRATE 10 MG TAB PO SCH (07:33)
[2018-05-15] MEDS: INSULIN ASPART 100 UNITS/ML 3 ML PEN SQ SCH ×4 (08:52→21:42)
[2018-05-15] MEDS ORDERED: INSULIN GLARGINE SOLOSTAR 100 UNITS/ML 3 ML PEN SC SCH (09:00)
[2018-05-15] MEDS: HEPARIN 25,000 UNIT/500ML D5W 500 ML IV SCH ×2 (11:00→11:30)
[2018-05-15 12:07] LABS: PTT PATIENT 110.2 SECONDS (21.0-31.0)
--- NOTE | 2018-05-15 12:20 | Hospitalist Progress Note ---
Hospitalist Progress Note Date of Service May 15, 2018. (Jayen Tucker .NATALIE) Subjective Pt evaluation today including: conversation w/ patient, physical exam, chart review, lab review, review of inpatient medication list Voiding: no voiding problems Ms. Perkins is feeling unwell since heart rate came down from the 130s in the morning while on the cardizem gtt. Cardizem was off for a few hours with heart rate in the 80s but heart rate has returned to the 130s. Nursing to call cardiology for input, gtt restarted for now. ROS Constitutional: no chills, aches, sweats or fever Respiratory: no sob,cough, sputum, or wheezing Cardiac: no chest pain, palpitations, edema, orthopnea or lightheadedness GI: no abdominal pain, nausea, vomiting, diarrhea or constipation : no dysuria or hesitancy Extremities: no joint pain or weakness Skin: no rash All other systems reviewed and negative (Jayne Tucker .NATALIE) Medications Medications Administered Medications (Trade) Dose Ordered Sig/Deric Route Start Time Stop Time Status Last Admin Dose Admin Sodium Chloride 1,000 ml @ 999 mls/hr Q1H1M STAT IV 05/14/18 16:53 05/14/18 17:53 DC 05/14/18 16:53 999 MLS/HR Adenosine (Adenosine Iv) 6 mg STK-MED ONCE .ROUTE 05/14/18 17:41 05/14/18 17:42 DC 05/14/18 17:41 6 MG Diltiazem HCl (Cardizem Bolus From Bag) 10 mg 1800 ONCE IV 05/14/18 18:00 05/14/18 18:01 DC 05/14/18 18:00 10 MG Diltiazem HCl 125 mg/Dextrose 125 ml @ 0 mls/hr Q0M PRN IV 05/14/18 18:00 06/13/18 17:59 05/15/18 03:18 15 MLS/HR Albuterol (Ventolin Hfa Inhaler) 2 puffs Q6H PRN INH 05/14/18 19:00 18 18:59 05/15/18 02:35 2 PUFFS Aspirin (Ecotrin Tab) 81 mg QAM PO 05/15/18 09:00 06/14/18 08:59 05/15/18 07:30 81 MG EZETIMIBE (Zetia Tab) 10 mg QAM PO 05/15/18 09:00 06/14/18 08:59 05/15/18 07:30 10 MG Insulin Aspart (novoLOG ASPART) TIDM SQ 05/15/18 07:30 06/14/18 07:59 05/15/18 08:52 11 UNITS Insulin Glargine (Lantus Solostar Pen) 42 units QAM SC 05/15/18 09:00 06/14/18 08:59 05/15/18 07:34 42 UNITS Metformin HCl (Glucophage Extended Rel Tab) 500 mg BIDM PO 05/14/18 21:00 06/13/18 20:59 05/15/18 02:15 500 MG Metoprolol Tartrate (Lopressor Tab) 50 mg BID PO 05/14/18 21:00 06/13/18 20:59 05/15/18 07:29 50 MG Simvastatin (Zocor Tab) 80 mg QAM PO 05/15/18 09:00 06/14/18 08:59 05/15/18 07:30 80 MG Irbesartan (Avapro Tab) 300 mg DAILY PO 05/15/18 09:00 06/14/18 08:59 05/15/18 07:30 300 MG Meclizine HCl (Antivert Tab) 12.5 mg TID PRN PO 05/14/18 20:45 06/13/18 20:44 05/15/18 09:26 12.5 MG Tamoxifen Citrate (Nolvadex Tab) 20 mg DAILY PO 05/15/18 09:00 06/14/18 08:59 05/15/18 07:33 20 MG Heparin Sodium/ Dextrose (Heparin 25,000 Unit/500ml D5W) 25,000 unit STK-MED ONCE .ROUTE 05/14/18 19:38 05/14/18 19:39 DC 05/14/18 19:43 25,000 UNIT Heparin Sodium/ Dextrose 500 ml @ 32 mls/hr [id number] IV 05/14/18 20:45 06/13/18 20:44 05/15/18 11:00 37 MLS/HR Heparin Sodium (Porcine) 7000 unit/Syringe 7 ml @ 10 mls/min 0345 ONCE IV 05/15/18 03:45 05/15/18 03:46 DC 05/15/18 03:56 10 MLS/MIN (Jayne Tucker, NATALIE) Objective Vital Signs Date Time Temp Pulse Resp B/P (MAP) Pulse Ox O2 Delivery O2 Flow Rate FiO2 05/15/18 08:00 Room Air 05/15/18 07:33 36.6 115 18 101/60 (74) 89 Room Air 05/15/18 04:08 36.7 128 20 100/70 (80) 90 Nasal Cannula 2.0 05/15/18 02:00 119 20 102/73 (83) 96 Nasal Cannula 2.0 05/15/18 00:02 Nasal Cannula 2.0 05/14/18 23:44 36.3 134 18 131/71 (91) 86 Room Air 05/14/18 20:30 137 05/14/18 20:28 36.6 137 20 109/78 93 Room Air 05/14/18 20:07 133 18 129/96 98 05/14/18 20:01 129/96 05/14/18 20:00 136 21 05/14/18 19:47 05/14/18 19:45 136 27 05/14/18 19:31 150/112 05/14/18 19:30 136 32 05/14/18 18:46 136/97 05/14/18 18:45 135 17 98 Room Air 05/14/18 18:45 135 17 136/97 98 Nasal Cannula 2.0 05/14/18 18:31 149/114 05/14/18 18:30 135 23 149/114 98 Nasal Cannula 2.0 05/14/18 18:30 135 23 98 05/14/18 18:15 136 19 141/96 97 Nasal Cannula 2.0 05/14/18 18:11 124/89 05/14/18 18:06 144/90 05/14/18 18:00 137 18 135/95 05/14/18 17:51 137 21 144/102 92 Room Air 05/14/18 17:47 136 20 145/100 92 Room Air 05/14/18 17:44 135/100 Room Air 05/14/18 17:41 136 32 142/109 Room Air 05/14/18 17:37 137 05/14/18 17:36 137 26 143/109 Room Air 05/14/18 16:35 36.9 138 20 165/102 92 Room Air (Jayne Tucker CRNP) Physical Exam Notes: General: no distress Eyes: normal inspection, PERLL Respiratory: chest non tender, clear to auscultation, normal breath sounds, no respiratory distress, no accessory muscle use Cardiac: irregular rate and rhythm, no rub or gallop, no murmur, no edema, no jvd GI/: active bowel sounds, no abd pain or tenderness, soft, non distended Extremities: normal range of motion, normal strength, non tender Neuro/Psych: alert and oriented x 3, normal mood and affect Skin: normal color, dry (Jayne Tucker CRNP) Laboratory Results Last 24 Hours Test 05/14/18 17:00 05/14/18 19:25 05/14/18 19:35 05/14/18 19:59 White Blood Count 9.39 K/uL Red Blood Count 4.79 M/uL Hemoglobin 15.1 g/dL Hematocrit 46.6 % Mean Corpuscular Volume 97.3 fL Mean Corpuscular Hemoglobin 31.5 pg Mean Corpuscular Hemoglobin Concent 32.4 g/dl Platelet Count 220 K/uL Mean Platelet Volume 9.7 fL Neutrophils (%) (Auto) 55.3 % Lymphocytes (%) (Auto) 33.0 % Monocytes (%) (Auto) 7.2 % Eosinophils (%) (Auto) 3.9 % Basophils (%) (Auto) 0.3 % Neutrophils # (Auto) 5.18 K/uL Lymphocytes # (Auto) 3.10 K/uL Monocytes # (Auto) 0.68 K/uL Eosinophils # (Auto) 0.37 K/uL Basophils # (Auto) 0.03 K/uL RDW Standard Deviation 53.8 fL RDW Coefficient of Variation 15.1 % Immature Granulocyte % (Auto) 0.3 % Immature Granulocyte # (Auto) 0.03 K/uL Sodium Level 142 mmol/L Potassium Level 4.0 mmol/L Chloride Level 107 mmol/L Carbon Dioxide Level 30 mmol/L Anion Gap 5.0 mmol/L Blood Urea Nitrogen 14 mg/dl Creatinine 0.70 mg/dl Est Creatinine Clear Calc Drug Dose 109.1 ml/min Estimated GFR () 106.9 Estimated GFR (Non- 92.2 BUN/Creatinine Ratio 19.3 Random Glucose 95 mg/dl Calcium Level 8.5 mg/dl Total Creatine Kinase 109 U/L Creatine Kinase MB 6.1 ng/ml Creatine Kinase MB Ratio 5.6 Troponin I 0.022 ng/ml Activated Partial Thromboplast Time 25.1 SECONDS Partial Thromboplastin Ratio 1.0 Bedside Glucose 59 mg/dl 90 mg/dl Test 05/14/18 20:30 05/14/18 20:41 05/15/18 01:54 05/15/18 04:44 Bedside Glucose 109 mg/dl Troponin I 0.026 ng/ml Thyroid Stimulating Hormone (TSH) 2.080 uIu/ml Activated Partial Thromboplast Time 38.0 SECONDS Partial Thromboplastin Ratio 1.5 Test 05/15/18 07:08 05/15/18 08:50 05/15/18 10:46 05/15/18 11:33 Bedside Glucose 187 mg/dl 227 mg/dl 139 mg/dl Activated Partial Thromboplast Time 110.2 SECONDS Partial Thromboplastin Ratio 4.2 (Jayne Tucker CRNP) Assessment and Plan 63 y/o F who was admitted on 05/14 with new onset afib with RVR A.fib/flutter RVR - continue cardizem gtt - echo pending - trop negative x2 - TSH wnl - continue heparin gtt for now, will change to oral anticoagulation per cardiology rec - cardiology consulted Diastolic CHF - patient with congestion on chest x ray, sob and lower extremity edema - 40 mg IV lasix x 1 dose and will continue diuresing depending on patient's response - daily weights - strict I&O DM II: - continue SSI, lantus, hold home metformin - A1c, lipids pending - pharmacy glycemic management for hypoglycemic episode HTN: continue home Irbesartan and metoprolol COPD: stable, not in exacerbation CAD prevention: aspirin 81mg Current pack per day smoker - smoking cessation education Other: Full code, does not want prolonged mechanical life support, feeding tubes , etc DM AHA diet Heparin gtt for DVT proph (Jayne Tucker CRNP) INTERNAL CONSULTANT Physician Supervision Note: I discussed with Jayne Tucker NP and agree with findings and plan as documented in the note. Any exceptions or clarifications are listed here: None Patient here with A. fib RVR rate control seems to be achieved with beta- lisa therapy decisions are to discussion of cardiology about long-term anticoagulation patient typically follows Dr. Rapp and she will continue to do that he is likely seeing her during her hospital stay as he is on inpatient rounds this week Documented By: Alfonso Cano (Alfonso Cano M.D.)
[2018-05-15 13:46] LABS: HEMOGLOBIN A1C 8.5 % (4.5-5.6)
--- NOTE | 2018-05-15 14:47 | Cardiology Consultation ---
Cardiology Consultation Date of Service May 15, 2018. Cardiology Consultation Indication: Consultation for heart failure and atrial flutter. History: This is a 63-year-old female who I follow in the office. She has a history of symptomatic PVCs. She also has a history of obesity, type 2 diabetes, hypertension, cigarette smoking and dyslipidemia. It was her birthday recently and she decided to treat herself by going to the [facility] in [place]. While there she noticed some increased shortness of breath and dyspnea with activity. Over the next several days she noted increased lower extremity edema with progressive shortness of breath and tachycardia. She has been admitted with congestive heart failure with atrial flutter and RVR. She was started on a diltiazem drip as well as metoprolol in the emergency department which is controlled her heart rates. She is also been anticoagulated. Allergies: Amoxicillin, clarithromycin, clindamycin, codeine, fluconazole, penicillins, Bactrim Reported Home Medications Medications Dose Route/Sig Max Daily Dose Days Date Category Dose Instructions Tamoxifen Citrate 20 Mg Tab 20 Mg PO DAILY 05/14/18 Reported Zofran (Ondansetron HCl) 4 Mg Tab 4 Mg PO Q 4 HRS PRN 03/01/18 Rx Novolog (Insulin Aspart) 100 Units/Ml Inj SQ TIDM 01/28/18 Reported SLIDING SCALE WITH MEALS, UP TO 15-22 UNITS Lantus (Insulin Glargine) 100 Unit/Ml Inj 42 Units SC QAM 01/28/18 Reported Avapro (Irbesartan) 300 Mg Tab 300 Mg PO DAILY 01/28/18 Reported Ventolin Hfa (Albuterol) 200 Puffs/00540 Mcg Aers 2 Puffs INH Q6H PRN 01/28/18 Reported Glucophage Er (Metformin HCl) 500 Mg Tab 500 Mg PO BID 01/28/18 Reported Meclizine HCl 12.5 Mg Tab 1 Tab PO TID PRN 10 09/26/16 Reported Lopressor (Metoprolol Tartrate) 50 Mg Tab 50 Mg PO BID 12/28/11 Reported Lasix (Furosemide) 40 Mg Tab 40 Mg PO DAILY PRN 12/28/11 Reported Zetia (Ezetimibe) 10 Mg Tab 10 Mg PO QAM 12/28/11 Reported Zocor (Simvastatin) 80 Mg Tab 80 Mg PO QAM 12/28/11 Reported Ecotrin Or Generic (Aspirin) 81 Mg Tab 81 Mg PO QAM 12/28/11 Reported Past medical history: As outlined in the history of chief complaint the patient is an obese diabetic with a history of smoking she also has hypertension and lipidemia. No previous history of congestive heart failure or atrial arrhythmias. No previous history of kidney disease or strokes. Social history: The patient has a history of cigarette smoking but is currently a non-smoker. She lives with her . Family medical history: Noncontributory Review of systems: The 10 point review of systems is negative except for the history of chief complaint. Vital Signs Past 12 Hours Date Time Temp Pulse Resp B/P (MAP) Pulse Ox O2 Delivery O2 Flow Rate FiO2 05/15/18 13:52 116/76 (89) 05/15/18 12:00 36.6 65 18 111/72 (85) 93 Room Air 05/15/18 08:00 Room Air 05/15/18 07:33 36.6 115 18 101/60 (74) 89 Room Air 05/15/18 04:08 36.7 128 20 100/70 (80) 90 Nasal Cannula 2.0 General Appearance: Alert and Oriented x3. NAD. Head: Normocephalic Atraumatic. Eyes: PERRLA, EOMI, conjunctiva and sclera clear Neck: Supple. No carotid bruits noted. No JVD. No HJD. Respiratory: Breath sounds clear to auscultation bilaterally. No w/r/r. Cardiovascular: Irregular rate and rhythm. S1 and S2 noted. No murmurs, rubs, gallops. PMI non displace. Abdomen: Normal bowel sounds, soft nontender. no abdominal bruits. Extremities: No edema, no clubbing or cyanosis. distal pulses 2/4 bilaterally. Neuro: No focal deficits. Psychiatric: Normal affect. Last 24 Hours Test 05/14/18 17:00 05/14/18 19:25 05/14/18 19:35 05/14/18 19:59 White Blood Count 9.39 K/uL Red Blood Count 4.79 M/uL Hemoglobin 15.1 g/dL Hematocrit 46.6 % Mean Corpuscular Volume 97.3 fL Mean Corpuscular Hemoglobin 31.5 pg Mean Corpuscular Hemoglobin Concent 32.4 g/dl Platelet Count 220 K/uL Mean Platelet Volume 9.7 fL Neutrophils (%) (Auto) 55.3 % Lymphocytes (%) (Auto) 33.0 % Monocytes (%) (Auto) 7.2 % Eosinophils (%) (Auto) 3.9 % Basophils (%) (Auto) 0.3 % Neutrophils # (Auto) 5.18 K/uL Lymphocytes # (Auto) 3.10 K/uL Monocytes # (Auto) 0.68 K/uL Eosinophils # (Auto) 0.37 K/uL Basophils # (Auto) 0.03 K/uL RDW Standard Deviation 53.8 fL RDW Coefficient of Variation 15.1 % Immature Granulocyte % (Auto) 0.3 % Immature Granulocyte # (Auto) 0.03 K/uL Sodium Level 142 mmol/L Potassium Level 4.0 mmol/L Chloride Level 107 mmol/L Carbon Dioxide Level 30 mmol/L Anion Gap 5.0 mmol/L Blood Urea Nitrogen 14 mg/dl Creatinine 0.70 mg/dl Est Creatinine Clear Calc Drug Dose 109.1 ml/min Estimated GFR () 106.9 Estimated GFR (Non- 92.2 BUN/Creatinine Ratio 19.3 Random Glucose 95 mg/dl Calcium Level 8.5 mg/dl Total Creatine Kinase 109 U/L Creatine Kinase MB 6.1 ng/ml Creatine Kinase MB Ratio 5.6 Troponin I 0.022 ng/ml Activated Partial Thromboplast Time 25.1 SECONDS Partial Thromboplastin Ratio 1.0 Bedside Glucose 59 mg/dl 90 mg/dl Test 05/14/18 20:30 05/14/18 20:41 05/15/18 01:54 05/15/18 07:08 Bedside Glucose 109 mg/dl 187 mg/dl Troponin I 0.026 ng/ml Thyroid Stimulating Hormone (TSH) 2.080 uIu/ml Activated Partial Thromboplast Time 38.0 SECONDS Partial Thromboplastin Ratio 1.5 Test 05/15/18 08:50 05/15/18 10:46 05/15/18 11:33 05/15/18 12:16 Bedside Glucose 227 mg/dl 139 mg/dl Activated Partial Thromboplast Time 110.2 SECONDS Partial Thromboplastin Ratio 4.2 Estimated Average Glucose 197 mg/dl Hemoglobin A1c 8.5 % Triglycerides Level 73 mg/dl Cholesterol Level 108 mg/dl HDL Cholesterol 46 mg/dl LDL Cholesterol, Calculated 47 mg/dl VLDL Cholesterol, Calculated 15 mg/dl Cholesterol/HDL Ratio 2.3 Impression: 1. Atrial flutter with RVR 2. Suspect heart failure due to diastolic dysfunction and atrial flutter 3. Obesity 4. Diabetes 5. History of hypertension 6. Dyslipidemia Recommendations: I believe the patient is most likely in diastolic heart failure resulting from her atrial arrhythmias. I would continue to use diuretics to clear her congestion. For now I would continue both the Lopressor orally and the diltiazem IV for rate control. She is currently anticoagulated on heparin. I will review her echocardiogram once it is completed and I will have further recommendations.
[2018-05-15] MEDS ORDERED: FUROSEMIDE INJ 40 MG in SYRINGE 0 ML IV ONE (17:00)
[2018-05-15] MEDS ORDERED: PHARMACY GLYCEMIC MGMT CONSULT PRN (18:09)
[2018-05-15 19:00] LABS: PTT PATIENT 58.5 SECONDS (21.0-31.0)
--- NOTE | 2018-05-15 21:59 | Pharmacy Progress Note ---
Glycemic Control Intl Consult Date of Service May 15, 2018. Scope Glycemic Pharmacist consulted by Aura Tucker on 05/15/18 for glycemic control and to write orders per [facility] inpatient glycemic control protocol Objective Weight (Kilograms): 125.700 Accuchecks BSG (last 24hrs): Test 05/15/18 07:08 05/15/18 08:50 05/15/18 11:33 05/15/18 15:48 Bedside Glucose 187 mg/dl (70-90) 227 mg/dl (70-90) 139 mg/dl (70-90) 55 mg/dl (70-90) Test 05/15/18 16:08 05/15/18 20:29 Bedside Glucose 85 mg/dl (70-90) 190 mg/dl (70-90) Laboratory Data (last 24hrs) Test 05/15/18 12:16 Hemoglobin A1c 8.5 % HbA1c Test 05/15/18 12:16 Hemoglobin A1c 8.5 % (4.5-5.6) H Recent Pertinent Medications Outpatient Anti-diabetic Regimen: * Lantus 42 units sq qAM, Novolog SQ TIDM, metformin ER 500 mg PO BID * A1c = 8.5 % 05/15/18 The patient is currently receiving: * Basal insulin: Lantus 42 units every 24 hours * Correctional Insulin: Novolog Correction per scale ACHS Goal Range: Low 110 mg/dL - High 140 mg/dL Correction Factor: 20 mg/dL/unit * Prandial insulin: Per carb ratio of 1 unit per 6 grams CHO consumed Assessment & Plan ASSESSMENT: * 63 yr old T2DM female admitted with new onset atrial fibrillation with RVR. * Patient is maintained on basal + bolus insulin (~90 units/day) and metformin as an outpatient. * Pharmacy was consulted due to hypoglycemic episode today prior to dinner. Patient requested that her BSG be checked due to feeling hypoglycemic. BSG at that time was 55 mg/dL. I suspect hypoglycemia was due to Novolog (too tight of carb coverage), therefore I have loosened her Novolog CF and CR. Will assess if changes need to be made to basal insulin on 05/16 once fasting BSG is available ( fasting above goal today). PLAN FOR INPATIENT GLYCEMIC CONTROL: * Holding outpatient oral diabetes medications * Basal insulin * Continue Lantus 42 units SQ qAM * Bolus Insulin - loosen * NOVOLOG per scale ACHS or Q6hrs while NPO * Increase Goal Range: Low 120 mg/dL - High 160 mg/dL * Correction Factor: 25 mg/dL/unit * Nutritional / Prandial insulin per carb ratio of 1 unit per 8 grams CHO consumed * Please note that the plan above was derived based on current level of insulin resistance and hospital stress. These recommendations are appropriate for inpatient admission only. Plan of care upon discharge will need to be reassessed to avoid potential outpatient hypo/hyperglycemia. Thank you.
[2018-05-16] VITALS (7 sets, daily range): BP systolic 86–120; BP diastolic 58–79; PULSE 87–131; TEMP 36.4–37; O2SAT 85–93
[2018-05-16] MEDS: HEPARIN 25,000 UNIT/500ML D5W 500 ML IV SCH ×2 (02:40→18:33)
[2018-05-16 05:02] LABS: HEMATOCRIT 44.8 % (37-47); HEMOGLOBIN 14.1 g/dL (12.0-16.0); MEAN CELL VOLUME 98.5 fL (80-100); MEAN CORPUSCULAR HGB CONC 31.5 g/dl (32-36); MEAN PLATELET VOLUME 9.6 fL (7.4-10.4); PLATELET COUNT 183 K/uL (130-400); WHITE BLOOD COUNT 8.45 K/uL (4.8-10.8)
[2018-05-16 05:24] LABS: PTT PATIENT 61.3 SECONDS (21.0-31.0)
[2018-05-16] MEDS: EZETIMIBE 10MG TAB PO SCH (07:43)
[2018-05-16] MEDS: IRBESARTAN 150 MG TAB PO SCH (07:43)
[2018-05-16] MEDS: SIMVASTATIN 80 MG TAB PO SCH (07:43)
[2018-05-16] MEDS: ASPIRIN 81 MG ECTAB PO SCH (07:43)
[2018-05-16] MEDS: METOPROLOL TARTRATE 50 MG TAB PO SCH ×2 (07:46→21:15)
[2018-05-16] MEDS: TAMOXIFEN CITRATE 10 MG TAB PO SCH (07:47)
[2018-05-16] MEDS: INSULIN ASPART 100 UNITS/ML 3 ML PEN SQ SCH ×5 (07:56→23:55)
[2018-05-16] MEDS: DILTIAZEM HCL INJ 125 MG in DEXTROSE 5% 100ML IV PRN (07:56)
[2018-05-16 08:50] LABS: CALCIUM 7.9 mg/dl (8.5-10.1); CREATININE 0.86 mg/dl (0.60-1.20); POTASSIUM 4.2 mmol/L (3.5-5.1)
[2018-05-16] MEDS ORDERED: INSULIN GLARGINE SOLOSTAR 100 UNITS/ML 3 ML PEN SC STA (09:31)
[2018-05-16] MEDS ORDERED: METOLAZONE 2.5 MG TAB PO ONE (09:45)
[2018-05-16] MEDS ORDERED: MAGNESIUM CHLORIDE 64MG DELAYED REL TAB PO ONE (09:45)
--- NOTE | 2018-05-16 09:47 | Cardiology Follow-Up ---
Subjective Subjective Date of Service: May 16, 2018. Pt evaluation today including: conversation w/ patient, conversation w/ family , physical exam, chart review, lab review, review of studies, review of inpatient medication list Additional Details: The patient still in A. fib with high heart rates. Not much diuresis with IV Lasix. Still short of breath with activity. Problem List Medical Problems: (1) Atrial flutter with rapid ventricular response Status: Acute Objective Vital Signs Last Vital Signs Documentation Date Time Temp Pulse Resp B/P (MAP) Pulse Ox O2 Delivery O2 Flow Rate FiO2 05/16/18 08:00 Room Air 05/16/18 07:00 36.5 122 20 86/58 (67) 91 2.0 Physical Exam: General Appearance: no apparent distress, + obese ENT: normal ENT inspection Respiratory/Chest: chest non-tender, lungs clear, normal breath sounds, no respiratory distress, no accessory muscle use Cardiovascular: no murmur, + irregularly irregular Abdomen: normal bowel sounds, non tender, soft, no organomegaly, no pulsatile mass Extremities: normal range of motion, non-tender, normal inspection, normal capillary refill, + pedal edema Neurologic/Psychiatric: fee clerk II-XII nml as tested, no motor/sensory deficits, alert, normal mood/affect, oriented x 3 Skin: normal color, warm/dry, no rash Lymphatic: no adenopathy Assessment and Plan Impression: 1. Persistent atrial fibrillation 2. Acute diastolic heart failure 3. Obesity Recommendations: The patient continues to have high heart rates with her atrial fibrillation. She is already on 50 mg of Lopressor twice daily as well as a diltiazem drip. I am going to add sotalol 80 mg twice daily as an antiarrhythmic and for rate control. Once the sotalol was started the diltiazem drip will be stopped. She will continue to have Lasix 40 mg IV twice daily. I am going to add Zaroxolyn 2.5 mg today. After starting the Zaroxolyn she will need to be started on potassium and magnesium supplements. I would continue the heparin. Recommendations about further treatment of her atrial arrhythmias when she is out of heart failure. Medications: Current Inpatient Medications Medications (Trade) Dose Ordered Sig/Deric Route Start Time Stop Time Status Last Admin Dose Admin Acetaminophen (Tylenol Tab) 650 mg Q4H PRN PO 05/14/18 19:00 06/13/18 18:59 Magnesium Hydroxide (Milk Of Magnesia Susp) 30 ml Q12H PRN PO 05/14/18 19:00 06/13/18 18:59 Ondansetron HCl (Zofran Inj) 4 mg Q6H PRN IV 05/14/18 19:00 06/13/18 18:59 Albuterol (Ventolin Hfa Inhaler) 2 puffs Q6H PRN INH 05/14/18 19:00 06/13/18 18:59 05/15/18 02:35 2 PUFFS Aspirin (Ecotrin Tab) 81 mg QAM PO 05/15/18 09:00 06/14/18 08:59 05/16/18 07:43 81 MG EZETIMIBE (Zetia Tab) 10 mg QAM PO 05/15/18 09:00 06/14/18 08:59 05/16/18 07:43 10 MG Insulin Glargine (Lantus Solostar Pen) 42 units QAM SC 05/15/18 09:00 06/14/18 08:59 Future Hold 05/15/18 07:34 42 UNITS Metformin HCl (Glucophage Extended Rel Tab) 500 mg BIDM PO 05/14/18 21:00 06/13/18 20:59 Future Hold 05/15/18 02:15 500 MG Metoprolol Tartrate (Lopressor Tab) 50 mg BID PO 05/14/18 21:00 06/13/18 20:59 05/16/18 07:46 50 MG Ondansetron HCl (Zofran Tab) 4 mg Q4H PRN PO 05/14/18 19:00 06/13/18 18:59 Simvastatin (Zocor Tab) 80 mg QAM PO 05/15/18 09:00 06/14/18 08:59 05/16/18 07:43 80 MG Irbesartan (Avapro Tab) 300 mg DAILY PO 05/15/18 09:00 06/14/18 08:59 05/16/18 07:43 300 MG Meclizine HCl (Antivert Tab) 12.5 mg TID PRN PO 05/14/18 20:45 06/13/18 20:44 05/15/18 09:26 12.5 MG Tamoxifen Citrate (Nolvadex Tab) 20 mg DAILY PO 05/15/18 09:00 06/14/18 08:59 05/16/18 07:47 20 MG Heparin Sodium/ Dextrose 500 ml @ 32 mls/hr [id number] IV 05/14/18 20:45 06/13/18 20:44 05/16/18 02:40 32 MLS/HR Glucose (Glucose 40% Gel) 15-30 GRAMS 15 GRAMS... UD PRN PO 05/14/18 21:00 06/13/18 20:59 Glucose (Glucose Chew Tab) 4-8 Tablets 4 Tabl... UD PRN PO 05/14/18 21:00 06/13/18 20:59 Dextrose (Dextrose 50% 50ML Syringe) 25-50ML 25ML FOR ... UD PRN IV 05/14/18 21:00 06/13/18 20:59 Glucagon (Glucagon Inj) 1 mg UD PRN IM 05/14/18 21:00 06/13/18 20:59 Carbohydrates (Carbohydrates For Hypoglycemia) 15-30 GRAMS 15 grams if BSG 54-69... UD PRN PO 05/14/18 21:00 06/13/18 20:59 05/15/18 15:51 15 GM Miscellaneous Information (Consult Glycemic Management Pharmacy) 1 ea UD PRN N/A 05/15/18 18:09 06/14/18 18:08 Insulin Aspart (novoLOG ASPART) SLIDING SCALE G... ACHS SQ 05/15/18 21:00 06/14/18 20:59 05/16/18 07:56 5 UNITS Sotalol HCl (Betapace Tab) 80 mg NOW ONCE PO 05/16/18 10:00 05/16/18 10:01 Sotalol HCl (Betapace Tab) 80 mg BID PO 05/16/18 21:00 06/15/18 20:59 Furosemide 40 mg/ Syringe 4 ml @ 4 mls/min NOW ONCE IV 05/16/18 09:45 05/16/18 09:46 UNV Furosemide 40 mg/ Syringe 4 ml @ 4 mls/min BID IV 05/16/18 21:00 06/15/18 20:59 UNV Potassium Chloride (Klor-Con M10) 40 meq BID PO 05/16/18 21:00 06/15/18 20:59 UNV Potassium Chloride (Klor-Con M10) 40 meq NOW STAT PO 05/16/18 09:36 05/16/18 09:37 UNV Lab Results: Last 24 Hours Test 05/15/18 10:46 05/15/18 11:33 05/15/18 12:16 05/15/18 15:48 Activated Partial Thromboplast Time 110.2 SECONDS Partial Thromboplastin Ratio 4.2 Bedside Glucose 139 mg/dl 55 mg/dl Estimated Average Glucose 197 mg/dl Hemoglobin A1c 8.5 % Triglycerides Level 73 mg/dl Cholesterol Level 108 mg/dl HDL Cholesterol 46 mg/dl LDL Cholesterol, Calculated 47 mg/dl VLDL Cholesterol, Calculated 15 mg/dl Cholesterol/HDL Ratio 2.3 Test 05/15/18 16:08 05/15/18 18:25 05/15/18 20:29 05/16/18 04:47 Bedside Glucose 85 mg/dl 190 mg/dl Activated Partial Thromboplast Time 58.5 SECONDS 61.3 SECONDS Partial Thromboplastin Ratio 2.3 2.4 White Blood Count 8.45 K/uL Red Blood Count 4.55 M/uL Hemoglobin 14.1 g/dL Hematocrit 44.8 % Mean Corpuscular Volume 98.5 fL Mean Corpuscular Hemoglobin 31.0 pg Mean Corpuscular Hemoglobin Concent 31.5 g/dl RDW Standard Deviation 54.0 fL RDW Coefficient of Variation 15.0 % Platelet Count 183 K/uL Mean Platelet Volume 9.6 fL Sodium Level 142 mmol/L Potassium Level 4.2 mmol/L Chloride Level 106 mmol/L Carbon Dioxide Level 35 mmol/L Anion Gap 1.0 mmol/L Blood Urea Nitrogen 15 mg/dl Creatinine 0.86 mg/dl Est Creatinine Clear Calc Drug Dose 88.2 ml/min Estimated GFR () 83.3 Estimated GFR (Non- 71.9 BUN/Creatinine Ratio 17.6 Random Glucose 111 mg/dl Calcium Level 7.9 mg/dl Test 05/16/18 07:47 Bedside Glucose 102 mg/dl
[2018-05-16] MEDS ORDERED: SOTALOL HCL 80 MG TAB PO ONE (10:00)
[2018-05-16] MEDS ORDERED: POTASSIUM CHLORIDE 10 MEQ TABCR PO ONE (10:00)
--- NOTE | 2018-05-16 10:08 | Hospitalist Progress Note ---
Hospitalist Progress Note Date of Service May 16, 2018. Subjective Pt evaluation today including: conversation w/ patient, physical exam, chart review, lab review, conversation w/ franchise consultant (Dr. Rapp), review of inpatient medication list Voiding: no voiding problems Ms. Perkins is feeling better this morning however her heart rate on monitor continues to be as high as 120 in an A.fib. She continues to require 2L NC ROS Constitutional: no chills, aches, sweats or fever Respiratory: no sob,cough, sputum, or wheezing Cardiac: no chest pain, palpitations, edema, orthopnea or lightheadedness GI: no abdominal pain, nausea, vomiting, diarrhea or constipation : no dysuria or hesitancy Extremities: no joint pain or weakness Skin: no rash All other systems reviewed and negative Medications Medications Administered Medications (Trade) Dose Ordered Sig/Deric Route Start Time Stop Time Status Last Admin Dose Admin Sodium Chloride 1,000 ml @ 999 mls/hr Q1H1M STAT IV 05/14/18 16:53 05/14/18 17:53 DC 05/14/18 16:53 999 MLS/HR Adenosine (Adenosine Iv) 6 mg STK-MED ONCE .ROUTE 05/14/18 17:41 05/14/18 17:42 DC 05/14/18 17:41 6 MG Diltiazem HCl (Cardizem Bolus From Bag) 10 mg 1800 ONCE IV 05/14/18 18:00 05/14/18 18:01 DC 05/14/18 18:00 10 MG Diltiazem HCl 125 mg/Dextrose 125 ml @ 0 mls/hr Q0M PRN IV 05/14/18 18:00 05/16/18 09:34 DC 05/16/18 07:56 5 MLS/HR Albuterol (Ventolin Hfa Inhaler) 2 puffs Q6H PRN INH 05/14/18 19:00 06/13/18 18:59 05/15/18 02:35 2 PUFFS Aspirin (Ecotrin Tab) 81 mg QAM PO 05/15/18 09:00 06/14/18 08:59 05/16/18 07:43 81 MG EZETIMIBE (Zetia Tab) 10 mg QAM PO 05/15/18 09:00 06/14/18 08:59 05/16/18 07:43 10 MG Insulin Aspart (novoLOG ASPART) TIDM SQ 05/15/18 07:30 05/15/18 18:16 DC 05/15/18 12:17 7 UNITS Insulin Glargine (Lantus Solostar Pen) 42 units QAM SC 05/15/18 09:00 06/14/18 08:59 Future Hold 05/15/18 07:34 42 UNITS Metformin HCl (Glucophage Extended Rel Tab) 500 mg BIDM PO 05/14/18 21:00 06/13/18 20:59 Future Hold 05/15/18 02:15 500 MG Metoprolol Tartrate (Lopressor Tab) 50 mg BID PO 05/14/18 21:00 06/13/18 20:59 05/16/18 07:46 50 MG Simvastatin (Zocor Tab) 80 mg QAM PO 05/15/18 09:00 06/14/18 08:59 05/16/18 07:43 80 MG Irbesartan (Avapro Tab) 300 mg DAILY PO 05/15/18 09:00 06/14/18 08:59 05/16/18 07:43 300 MG Meclizine HCl (Antivert Tab) 12.5 mg TID PRN PO 05/14/18 20:45 06/13/18 20:44 05/15/18 09:26 12.5 MG Tamoxifen Citrate (Nolvadex Tab) 20 mg DAILY PO 05/15/18 09:00 06/14/18 08:59 05/16/18 07:47 20 MG Heparin Sodium/ Dextrose (Heparin 25,000 Unit/500ml D5W) 25,000 unit STK-MED ONCE .ROUTE 05/14/18 19:38 05/14/18 19:39 DC 05/14/18 19:43 25,000 UNIT Heparin Sodium/ Dextrose 500 ml @ 32 mls/hr [id number] IV 05/14/18 20:45 06/13/18 20:44 05/16/18 02:40 32 MLS/HR Carbohydrates (Carbohydrates For Hypoglycemia) 15-30 GRAMS 15 grams if BSG 54-69... UD PRN PO 05/14/18 21:00 06/13/18 20:59 05/15/18 15:51 15 GM Heparin Sodium (Porcine) 7000 unit/Syringe 7 ml @ 10 mls/min 0345 ONCE IV 05/15/18 03:45 05/15/18 03:46 DC 05/15/18 03:56 10 MLS/MIN Furosemide 40 mg/ Syringe 4 ml @ 4 mls/min ONE ONCE IV 05/15/18 17:00 05/15/18 17:01 DC 05/15/18 18:32 4 MLS/MIN Insulin Aspart (novoLOG ASPART) SLIDING SCALE G... ACHS SQ 05/15/18 21:00 06/14/18 20:59 05/16/18 07:56 5 UNITS Objective Vital Signs Date Time Temp Pulse Resp B/P (MAP) Pulse Ox O2 Delivery O2 Flow Rate FiO2 05/16/18 08:00 Room Air 05/16/18 07:00 36.5 122 20 86/58 (67) 91 Nasal Cannula 2.0 05/16/18 03:14 36.7 104 20 102/68 (79) 90 Nasal Cannula 2.0 05/16/18 00:00 93 Nasal Cannula 2.0 05/15/18 23:43 36.5 107 20 109/76 (87) 85 Room Air 05/15/18 23:43 92 Nasal Cannula 2.0 05/15/18 19:28 36.8 136 18 108/73 (85) 92 Room Air 05/15/18 16:00 93 Room Air 05/15/18 15:09 36.6 68 18 112/68 (83) 93 Room Air 05/15/18 13:52 116/76 (89) 05/15/18 12:00 36.6 65 18 111/72 (85) 93 Room Air Physical Exam Notes: General: no distress Eyes: normal inspection, PERLL Respiratory: chest non tender, clear to auscultation, normal breath sounds, no respiratory distress, no accessory muscle use Cardiac: regular rate and rhythm, no rub or gallop, no murmur, no edema, no jvd GI/: active bowel sounds, no abd pain or tenderness, soft, non distended Extremities: normal range of motion, normal strength, non tender Neuro/Psych: alert and oriented x 3, normal mood and affect Skin: normal color, dry Laboratory Results Last 24 Hours Test 05/15/18 10:46 05/15/18 11:33 05/15/18 12:16 05/15/18 15:48 Activated Partial Thromboplast Time 110.2 SECONDS Partial Thromboplastin Ratio 4.2 Bedside Glucose 139 mg/dl 55 mg/dl Estimated Average Glucose 197 mg/dl Hemoglobin A1c 8.5 % Triglycerides Level 73 mg/dl Cholesterol Level 108 mg/dl HDL Cholesterol 46 mg/dl LDL Cholesterol, Calculated 47 mg/dl VLDL Cholesterol, Calculated 15 mg/dl Cholesterol/HDL Ratio 2.3 Test 05/15/18 16:08 05/15/18 18:25 05/15/18 20:29 05/16/18 04:47 Bedside Glucose 85 mg/dl 190 mg/dl Activated Partial Thromboplast Time 58.5 SECONDS 61.3 SECONDS Partial Thromboplastin Ratio 2.3 2.4 White Blood Count 8.45 K/uL Red Blood Count 4.55 M/uL Hemoglobin 14.1 g/dL Hematocrit 44.8 % Mean Corpuscular Volume 98.5 fL Mean Corpuscular Hemoglobin 31.0 pg Mean Corpuscular Hemoglobin Concent 31.5 g/dl RDW Standard Deviation 54.0 fL RDW Coefficient of Variation 15.0 % Platelet Count 183 K/uL Mean Platelet Volume 9.6 fL Sodium Level 142 mmol/L Potassium Level 4.2 mmol/L Chloride Level 106 mmol/L Carbon Dioxide Level 35 mmol/L Anion Gap 1.0 mmol/L Blood Urea Nitrogen 15 mg/dl Creatinine 0.86 mg/dl Est Creatinine Clear Calc Drug Dose 88.2 ml/min Estimated GFR () 83.3 Estimated GFR (Non- 71.9 BUN/Creatinine Ratio 17.6 Random Glucose 111 mg/dl Calcium Level 7.9 mg/dl Test 05/16/18 07:47 Bedside Glucose 102 mg/dl Assessment and Plan 63 y/o F who was admitted on 05/14 with new onset afib with RVR A.fib/flutter RVR - per cardiology plan - discontinue cardizem gtt and start po sotalol, continue heparin gtt - echo pending - trop negative x2 - TSH wnl - cardiology consulted Diastolic CHF - patient with congestion on chest x ray, sob and lower extremity edema - BID 40 mg IV Lasix - daily weights - strict I&O DM II: - continue SSI, lantus, hold home metformin - A1c 8.5, lipids wnl - pharmacy glycemic management for hypoglycemic episode HTN: continue home Irbesartan COPD: stable, not in exacerbation CAD prevention: aspirin 81mg Current pack per day smoker - smoking cessation education Other: Full code, does not want prolonged mechanical life support, feeding tubes , etc DM AHA diet Heparin gtt for DVT proph
[2018-05-16] MEDS ORDERED: FUROSEMIDE INJ 40 MG in SYRINGE 0 ML IV ONE ×2 (10:10→10:15)
--- NOTE | 2018-05-16 12:25 | Pharmacy Progress Note ---
Pharmacy Glycemic Short Note 2 Date of Service May 16, 2018. OUTPATIENT ANTIDIABETIC REGIMEN: * Lantus 42u QAM, Novolog TIDM, MetforminER 500mg BID ASSESSMENT: * Ms. Perkins's BSGs over the previous 24hrs: [id number]. The low yesterday around dinner likely due to novolog stacking and decreased appetite. PLAN FOR INPATIENT GLYCEMIC CONTROL: * Hold outpatient oral diabetes medications * Basal insulin * Lantus 32 units (25% reduction) given this AM due to decreased appetite and low yesterday evening. * Bolus insulin * NovoLog per scale ACHS or Q6hrs while NPO * Goal Range: Low 120 mg/dL - High 160 mg/dL * Correction Factor: 25 mg/dL/unit * Nutritional / Prandial insulin per carb ratio of 1 unit per 8 grams CHO consumed * Will add 00,04 checks
[2018-05-16] MEDS ORDERED: FUROSEMIDE INJ 40 MG in SYRINGE 0 ML IV SCH (21:00)
[2018-05-16] MEDS: FUROSEMIDE INJ 40 MG in SYRINGE 0 ML IV SCH (21:13)
[2018-05-16] MEDS: SOTALOL HCL 80 MG TAB PO SCH (21:14)
[2018-05-16] MEDS: POTASSIUM CHLORIDE 10 MEQ TABCR PO SCH (21:15)
[2018-05-16] MEDS: MAGNESIUM CHLORIDE 64MG DELAYED REL TAB PO SCH (21:16)
[2018-05-17] VITALS (12 sets, daily range): BP systolic 75–108; BP diastolic 43–75; PULSE 66–127; TEMP 36.5–36.9; O2SAT 90–94
[2018-05-17] MEDS: INSULIN ASPART 100 UNITS/ML 3 ML PEN SQ SCH ×5 (04:00→21:00)
[2018-05-17] MEDS: MAGNESIUM CHLORIDE 64MG DELAYED REL TAB PO SCH ×2 (07:54→21:14)
[2018-05-17] MEDS: METOPROLOL TARTRATE 50 MG TAB PO SCH ×2 (07:54→21:14)
[2018-05-17] MEDS: SOTALOL HCL 80 MG TAB PO SCH ×2 (07:54→21:14)
[2018-05-17] MEDS: FUROSEMIDE INJ 40 MG in SYRINGE 0 ML IV SCH ×2 (07:54→19:34)
[2018-05-17] MEDS: ASPIRIN 81 MG ECTAB PO SCH (07:55)
[2018-05-17] MEDS: IRBESARTAN 150 MG TAB PO SCH (07:55)
[2018-05-17] MEDS: POTASSIUM CHLORIDE 10 MEQ TABCR PO SCH ×2 (07:55→21:14)
[2018-05-17 08:00] LABS: PTT PATIENT 63.9 SECONDS (21.0-31.0)
[2018-05-17] MEDS: TAMOXIFEN CITRATE 10 MG TAB PO SCH (08:00)
[2018-05-17 08:13] LABS: CALCIUM 8.2 mg/dl (8.5-10.1); CREATININE 0.88 mg/dl (0.60-1.20); POTASSIUM 4.3 mmol/L (3.5-5.1)
[2018-05-17] MEDS: EZETIMIBE 10MG TAB PO SCH (08:32)
[2018-05-17] MEDS: SIMVASTATIN 80 MG TAB PO SCH (08:32)
[2018-05-17] MEDS ORDERED: DILTIAZEM BOLUS / DRIP IV STA (09:49)
--- NOTE | 2018-05-17 09:49 | Hospitalist Progress Note ---
Hospitalist Progress Note Date of Service May 17, 2018. (Jayne Tucker .NATALIE) Subjective Pt evaluation today including: conversation w/ patient, physical exam, chart review, lab review, conversation w/ outbound sales consultant (Dr. Rpap), review of inpatient medication list Voiding: no voiding problems Ms. Perkins is feeling better today, able to take of oxygen. She does not have any complaints. She continues to have heart rates in the 120s-130s on the monitor. ROS Constitutional: no chills, aches, sweats or fever Respiratory: no sob,cough, sputum, or wheezing Cardiac: no chest pain, palpitations, edema, orthopnea or lightheadedness GI: no abdominal pain, nausea, vomiting, diarrhea or constipation : no dysuria or hesitancy Extremities: no joint pain or weakness Skin: no rash All other systems reviewed and negative (Jayne Tucker CRNP) Medications Medications Administered Medications (Trade) Dose Ordered Sig/Deric Route Start Time Stop Time Status Last Admin Dose Admin Sodium Chloride 1,000 ml @ 999 mls/hr Q1H1M STAT IV 05/14/18 16:53 05/14/18 17:53 DC 05/14/18 16:53 999 MLS/HR Adenosine (Adenosine Iv) 6 mg STK-MED ONCE .ROUTE 05/14/18 17:41 05/14/18 17:42 DC 05/14/18 17:41 6 MG Diltiazem HCl (Cardizem Bolus From Bag) 10 mg 1800 ONCE IV 05/14/18 18:00 05/14/18 18:01 DC 05/14/18 18:00 10 MG Diltiazem HCl 125 mg/Dextrose 125 ml @ 0 mls/hr Q0M PRN IV 05/14/18 18:00 05/16/18 09:34 DC 05/16/18 07:56 5 MLS/HR Albuterol (Ventolin Hfa Inhaler) 2 puffs Q6H PRN INH 05/14/18 19:00 06/13/18 18:59 05/15/18 02:35 2 PUFFS Aspirin (Ecotrin Tab) 81 mg QAM PO 05/15/18 09:00 06/14/18 08:59 05/17/18 07:55 81 MG EZETIMIBE (Zetia Tab) 10 mg QAM PO 05/15/18 09:00 06/14/18 08:59 05/17/18 08:32 10 MG Insulin Aspart (novoLOG ASPART) TIDM SQ 05/15/18 07:30 05/15/18 18:16 DC 05/15/18 12:17 7 UNITS Insulin Glargine (Lantus Solostar Pen) 42 units QAM SC 05/15/18 09:00 05/17/18 09:18 DC 05/15/18 07:34 42 UNITS Metformin HCl (Glucophage Extended Rel Tab) 500 mg BIDM PO 05/14/18 21:00 06/13/18 20:59 Future Hold 05/15/18 02:15 500 MG Metoprolol Tartrate (Lopressor Tab) 50 mg BID PO 05/14/18 21:00 06/13/18 20:59 05/17/18 07:54 50 MG Simvastatin (Zocor Tab) 80 mg QAM PO 05/15/18 09:00 06/14/18 08:59 05/17/18 08:32 80 MG Irbesartan (Avapro Tab) 300 mg DAILY PO 05/15/18 09:00 06/14/18 08:59 05/17/18 07:55 300 MG Meclizine HCl (Antivert Tab) 12.5 mg TID PRN PO 05/14/18 20:45 06/13/18 20:44 05/15/18 09:26 12.5 MG Tamoxifen Citrate (Nolvadex Tab) 20 mg DAILY PO 05/15/18 09:00 06/14/18 08:59 05/17/18 08:00 20 MG Heparin Sodium/ Dextrose (Heparin 25,000 Unit/500ml D5W) 25,000 unit STK-MED ONCE .ROUTE 05/14/18 19:38 05/14/18 19:39 DC 05/14/18 19:43 25,000 UNIT Heparin Sodium/ Dextrose 500 ml @ 32 mls/hr [id number] IV 05/14/18 20:45 06/13/18 20:44 05/16/18 18:33 32 MLS/HR Carbohydrates (Carbohydrates For Hypoglycemia) 15-30 GRAMS 15 grams if BSG 54-69... UD PRN PO 05/14/18 21:00 8/23/18 20:59 05/15/18 15:51 15 GM Heparin Sodium (Porcine) 7000 unit/Syringe 7 ml @ 10 mls/min 0345 ONCE IV 05/15/18 03:45 05/15/18 03:46 DC 05/15/18 03:56 10 MLS/MIN Furosemide 40 mg/ Syringe 4 ml @ 4 mls/min ONE ONCE IV 05/15/18 17:00 05/15/18 17:01 DC 05/15/18 18:32 4 MLS/MIN Insulin Aspart (novoLOG ASPART) SLIDING SCALE G... ACHS SQ 05/15/18 21:00 06/14/18 20:59 05/17/18 08:00 8 UNITS Insulin Glargine (Lantus Solostar Pen) 32 units NOW STAT SC 05/16/18 09:31 05/16/18 09:32 DC 05/16/18 10:12 32 UNITS Sotalol HCl (Betapace Tab) 80 mg NOW ONCE PO 05/16/18 10:00 05/16/18 10:01 DC 05/16/18 10:05 80 MG Sotalol HCl (Betapace Tab) 80 mg BID PO 05/16/18 21:00 06/15/18 20:59 05/17/18 07:54 80 MG Furosemide 40 mg/ Syringe 4 ml @ 4 mls/min NOW ONCE IV 05/16/18 10:15 05/16/18 10:16 DC 05/16/18 10:07 4 MLS/MIN Furosemide 40 mg/ Syringe 4 ml @ 4 mls/min BID IV 05/16/18 21:00 06/15/18 20:59 05/17/18 07:54 4 MLS/MIN Potassium Chloride (Klor-Con M10) 40 meq BID PO 05/16/18 21:00 06/15/18 20:59 05/17/18 07:55 40 MEQ Potassium Chloride (Klor-Con M10) 40 meq NOW ONCE PO 05/16/18 10:00 05/16/18 10:01 DC 05/16/18 10:07 40 MEQ Magnesium Chloride (Slow-Mag Tab) 64 mg BID PO 05/16/18 21:00 06/15/18 20:59 05/17/18 07:54 64 MG Magnesium Chloride (Slow-Mag Tab) 64 mg NOW ONCE PO 05/16/18 09:45 05/16/18 09:46 DC 05/16/18 12:35 64 MG Metolazone (Zaroxolyn Tab) 2.5 mg NOW ONCE PO 05/16/18 09:45 05/16/18 09:46 DC 05/16/18 10:05 2.5 MG (Jayne Tucker CRNP) Objective Vital Signs Date Time Temp Pulse Resp B/P (MAP) Pulse Ox O2 Delivery O2 Flow Rate FiO2 05/17/18 08:00 Room Air 05/17/18 07:57 36.6 127 19 106/75 (85) 90 Room Air 05/17/18 03:35 36.5 123 18 103/69 (80) 90 Room Air 05/17/18 00:32 92 Nasal Cannula 2.0 05/17/18 00:02 Room Air 05/16/18 23:43 36.4 123 22 111/74 (86) 85 Room Air 05/16/18 20:06 36.6 129 18 101/64 (76) 90 Room Air 05/16/18 16:02 36.6 131 20 120/78 (92) 93 Room Air 05/16/18 16:00 Room Air 05/16/18 11:22 37.0 87 20 113/79 (90) 91 Room Air (Jayne Tucker CRNP) Physical Exam Notes: General: no distress Eyes: normal inspection, PERLL Respiratory: chest non tender, clear to auscultation, normal breath sounds, no respiratory distress, no accessory muscle use Cardiac: regular rate and rhythm, no rub or gallop, no murmur, no edema, no jvd GI/: active bowel sounds, no abd pain or tenderness, soft, non distended Extremities: normal range of motion, normal strength, non tender Neuro/Psych: alert and oriented x 3, normal mood and affect Skin: normal color, dry (Jayne Tucker CRNP) Laboratory Results Last 24 Hours Test 05/16/18 10:02 05/16/18 11:26 05/16/18 16:42 05/16/18 21:02 Lab Scanned Report Laboratory Report Bedside Glucose 171 mg/dl 98 mg/dl 161 mg/dl Test 05/16/18 23:55 05/17/18 04:03 05/17/18 07:22 05/17/18 07:35 Bedside Glucose 134 mg/dl 141 mg/dl 145 mg/dl Activated Partial Thromboplast Time 63.9 SECONDS Partial Thromboplastin Ratio 2.5 Sodium Level 139 mmol/L Potassium Level 4.3 mmol/L Chloride Level 102 mmol/L Carbon Dioxide Level 34 mmol/L Anion Gap 4.0 mmol/L Blood Urea Nitrogen 17 mg/dl Creatinine 0.88 mg/dl Est Creatinine Clear Calc Drug Dose 85.2 ml/min Estimated GFR () 81.0 Estimated GFR (Non- 69.9 BUN/Creatinine Ratio 19.1 Random Glucose 145 mg/dl Calcium Level 8.2 mg/dl Magnesium Level 2.1 mg/dl (Jayne Tucker CRNP) Assessment and Plan 63 y/o F who was admitted on 05/14 with new onset afib with RVR A.fib/flutter RVR - per cardiology plan - po sotalol, continue heparin gtt - echo with normal EF, no wma - trop negative x2 - TSH wnl - cardiology consulted Diastolic CHF - patient with congestion on chest x ray, sob and lower extremity edema - BID 40 mg IV Lasix and metolozone x1 dose yesterday - daily weights - strict I&O - patient is diuresing well - 1L diuresed and 4 kg DM II: - continue SSI, lantus, hold home metformin - A1c 8.5, lipids wnl - pharmacy glycemic management for hypoglycemic episode HTN: continue home Irbesartan COPD: stable, not in exacerbation CAD prevention: aspirin 81mg Current pack per day smoker - smoking cessation education Other: Full code, does not want prolonged mechanical life support, feeding tubes , etc DM AHA diet Heparin gtt for DVT proph (Jayne Tucker CRNP) BAND SAWING MACHINE OPERATOR Physician Supervision Note: I interviewed and examined the patient. Discussed with Jayne Tucker BAND SAWING MACHINE OPERATOR and agree with findings and plan as documented in the note. Any exceptions or clarifications are listed here: None Patient is being followed by [facility] cardiology she has been started on sotalol for atrial fibrillation watching QT interval but still some variable results with rate control. Remains on intravenous heparin therapy for anticoagulation Documented By: Alfonso Cano (Alfonso Cano M.D.)
[2018-05-17] MEDS ORDERED: METOLAZONE 2.5 MG TAB PO ONE (10:00)
--- NOTE | 2018-05-17 10:04 | Cardiology Follow-Up ---
Subjective Subjective Date of Service: May 17, 2018. Pt evaluation today including: conversation w/ patient, conversation w/ family , physical exam, chart review, lab review, review of studies, review of inpatient medication list Additional Details: The patient had a reasonable diuresis yesterday. Unfortunately she continues to be in atrial fibrillation/flutter with high heart rates. She has no complaints and actually feels better with less shortness of breath. Problem List Medical Problems: (1) Atrial flutter with rapid ventricular response Status: Acute Objective Vital Signs Last Vital Signs Documentation Date Time Temp Pulse Resp B/P (MAP) Pulse Ox O2 Delivery O2 Flow Rate FiO2 05/17/18 08:00 Room Air 05/17/18 07:57 36.6 127 19 106/75 (85) 90 05/17/18 00:32 2.0 Physical Exam: General Appearance: no apparent distress, + obese ENT: normal ENT inspection Respiratory/Chest: chest non-tender, lungs clear, normal breath sounds, no respiratory distress, no accessory muscle use Cardiovascular: no murmur, + irregularly irregular Abdomen: normal bowel sounds, non tender, soft, no organomegaly, no pulsatile mass Extremities: normal range of motion, non-tender, normal inspection, normal capillary refill, + pedal edema 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 Persistent atrial fibrillation 2. Acute diastolic heart failure 3. Obesity Recommendations: I have added a diltiazem infusion to try to control her heart rates better. She still has a large amount of fluid volume on board and will benefit from additional diuretics. It may take several more days to get her to dry weight.
[2018-05-17] MEDS ORDERED: DILTIAZEM HCL 5 MG/ML 5 ML VIAL BOLUS/OMNI IV SCH (10:30)
--- NOTE | 2018-05-17 11:13 | Pharmacy Progress Note ---
Pharmacy Glycemic Short Note 2 Date of Service May 17, 2018. OUTPATIENT ANTIDIABETIC REGIMEN: * Lantus 42u QAM, Novolog TIDM, MetforminER 500mg BID ASSESSMENT: * Ms. Perkins's BSGs over the previous 24hrs have looked better: [id number]- [id number]. I am still concerned with hypoglycemia due to her decreased appetite. PLAN FOR INPATIENT GLYCEMIC CONTROL: * Hold outpatient oral diabetes medications * Basal insulin * Lantus 35 units (15% reduction from home dose) with BSGs <200, give home dose 42units w/ BSGs >/=200 * Bolus insulin * NovoLog per scale ACHS or Q6hrs while NPO * Goal Range: Low 120 mg/dL - High 160 mg/dL * Correction Factor: 25 mg/dL/unit * Nutritional / Prandial insulin per carb ratio of 1 unit per 8 grams CHO consumed
[2018-05-17] MEDS: INSULIN GLARGINE SOLOSTAR 100 UNITS/ML 3 ML PEN SC SCH (11:22)
[2018-05-17] MEDS: HEPARIN 25,000 UNIT/500ML D5W 500 ML IV SCH (11:23)
[2018-05-17] MEDS: DILTIAZEM HCL INJ 125 MG in DEXTROSE 5% 100ML IV PRN ×2 (11:24→21:16)
[2018-05-17] MEDS ORDERED: SODIUM CHLORIDE 0.9% 500ML 500 ML IV STA (23:56)
[2018-05-18] VITALS (14 sets, daily range): BP systolic 86–117; BP diastolic 54–83; PULSE 63–130; TEMP 36.4–36.9; O2SAT 90–98
--- NOTE | 2018-05-18 00:01 | Progress Note ---
Progress Note Date of Service May 17, 2018. Progress Note Called about patient being hypotensive with SBP in 70's and feeling nauseous and lightheaded. Stopped Cardizem drip and 500cc NS Bolus ordered. Continue to monitor overnight
[2018-05-18 00:20] LABS: BASO % 0.2 %; BASO ABS # 0.02 K/uL (0-0.2); EOS % 4.6 %; EOS ABS # 0.42 K/uL (0-0.5); HEMATOCRIT 44.5 % (37-47); HEMOGLOBIN 14.4 g/dL (12.0-16.0); IG# 0.02 K/uL (0.00-0.02); LYMPH % 34.4 %; LYMPH ABS # 3.12 K/uL (1.2-3.4); MEAN CELL VOLUME 97.4 fL (80-100); MEAN CORPUSCULAR HEMOGLOBIN 31.5 pg (25-34); MEAN CORPUSCULAR HGB CONC 32.4 g/dl (32-36); MONO % 9.3 %; MONO ABS # 0.84 K/uL (0.11-0.59); NEUT % 51.3 %; NEUT ABS # 4.64 K/uL (1.4-6.5); PLATELET COUNT 198 K/uL (130-400); RED CELL DISTRIBUTION WIDTH CV 14.6 % (11.5-14.5); RED CELL DISTRIBUTION WIDTH SD 52.1 fL (36.4-46.3); WHITE BLOOD COUNT 9.06 K/uL (4.8-10.8)
[2018-05-18 00:55] LABS: ALBUMIN 2.7 gm/dl (3.4-5.0); CALCIUM 7.7 mg/dl (8.5-10.1); CREATININE 1.36 mg/dl (0.60-1.20); POTASSIUM 4.7 mmol/L (3.5-5.1); TOTAL PROTEIN 6.2 gm/dl (6.4-8.2)
[2018-05-18] MEDS: HEPARIN 25,000 UNIT/500ML D5W 500 ML IV SCH ×2 (02:58→09:45)
[2018-05-18 07:52] LABS: HEMATOCRIT 46.2 % (37-47); HEMOGLOBIN 14.7 g/dL (12.0-16.0); MEAN CELL VOLUME 98.5 fL (80-100); MEAN CORPUSCULAR HEMOGLOBIN 31.3 pg (25-34); MEAN CORPUSCULAR HGB CONC 31.8 g/dl (32-36); MEAN PLATELET VOLUME 10.3 fL (7.4-10.4); NUCLEATED RED BLOOD CELL ABS 0.02 K/uL (0-0); PLATELET COUNT 183 K/uL (130-400); RED CELL DISTRIBUTION WIDTH CV 14.8 % (11.5-14.5); RED CELL DISTRIBUTION WIDTH SD 52.5 fL (36.4-46.3); WHITE BLOOD COUNT 8.33 K/uL (4.8-10.8)
[2018-05-18 08:17] LABS: CALCIUM 8.1 mg/dl (8.5-10.1); CREATININE 1.18 mg/dl (0.60-1.20); POTASSIUM 4.7 mmol/L (3.5-5.1)
[2018-05-18 08:28] LABS: PTT PATIENT 75.8 SECONDS (21.0-31.0)
[2018-05-18] MEDS: EZETIMIBE 10MG TAB PO SCH (08:39)
[2018-05-18] MEDS: POTASSIUM CHLORIDE 10 MEQ TABCR PO SCH ×2 (08:39→21:06)
[2018-05-18] MEDS: SIMVASTATIN 80 MG TAB PO SCH (08:39)
[2018-05-18] MEDS: MAGNESIUM CHLORIDE 64MG DELAYED REL TAB PO SCH ×2 (08:39→21:06)
[2018-05-18] MEDS: FUROSEMIDE INJ 40 MG in SYRINGE 0 ML IV SCH (08:39)
[2018-05-18] MEDS: IRBESARTAN 150 MG TAB PO SCH (08:40)
[2018-05-18] MEDS: SOTALOL HCL 80 MG TAB PO SCH ×2 (08:40→21:07)
[2018-05-18] MEDS: TAMOXIFEN CITRATE 10 MG TAB PO SCH (08:41)
[2018-05-18] MEDS: INSULIN ASPART 100 UNITS/ML 3 ML PEN SQ SCH ×4 (08:42→21:00)
[2018-05-18] MEDS: INSULIN GLARGINE SOLOSTAR 100 UNITS/ML 3 ML PEN SC SCH (08:43)
[2018-05-18] MEDS: ASPIRIN 81 MG ECTAB PO SCH (08:43)
[2018-05-18] MEDS: METOPROLOL TARTRATE 50 MG TAB PO SCH ×2 (08:43→21:07)
--- NOTE | 2018-05-18 11:52 | Hospitalist Progress Note ---
Hospitalist Progress Note Date of Service May 18, 2018. (Jayne Tucker CRNP) Subjective Pt evaluation today including: conversation w/ patient, physical exam, chart review, lab review, review of inpatient medication list Voiding: no voiding problems Ms. Perkins had an episode of hypotension over the night so her diltiazem drip was discontinued. She is feeling well this morning. Heart rates on monitor around 120 ROS Constitutional: no chills, aches, sweats or fever Respiratory: no sob,cough, sputum, or wheezing Cardiac: no chest pain, palpitations, edema, orthopnea or lightheadedness GI: no abdominal pain, nausea, vomiting, diarrhea or constipation : no dysuria or hesitancy Extremities: no joint pain or weakness Skin: no rash All other systems reviewed and negative (Jayne Tucker CRNP) Medications Medications Administered Medications (Trade) Dose Ordered Sig/Deric Route Start Time Stop Time Status Last Admin Dose Admin Sodium Chloride 1,000 ml @ 999 mls/hr Q1H1M STAT IV 05/14/18 16:53 05/14/18 17:53 DC 05/14/18 16:53 999 MLS/HR Adenosine (Adenosine Iv) 6 mg STK-MED ONCE .ROUTE 05/14/18 17:41 05/14/18 17:42 DC 05/14/18 17:41 6 MG Diltiazem HCl (Cardizem Bolus From Bag) 10 mg 1800 ONCE IV 05/14/18 18:00 05/14/18 18:01 DC 05/14/18 18:00 10 MG Diltiazem HCl 125 mg/Dextrose 125 ml @ 0 mls/hr Q0M PRN IV 05/14/18 18:00 05/16/18 09:34 DC 05/16/18 07:56 5 MLS/HR Albuterol (Ventolin Hfa Inhaler) 2 puffs Q6H PRN INH 05/14/18 19:00 06/13/18 18:59 05/15/18 02:35 2 PUFFS Aspirin (Ecotrin Tab) 81 mg QAM PO 05/15/18 09:00 06/14/18 08:59 05/18/18 08:43 81 MG EZETIMIBE (Zetia Tab) 10 mg QAM PO 05/15/18 09:00 06/14/18 08:59 05/18/18 08:39 10 MG Insulin Aspart (novoLOG ASPART) TIDM SQ 05/15/18 07:30 05/15/18 18:16 DC 05/15/18 12:17 7 UNITS Insulin Glargine (Lantus Solostar Pen) 42 units QAM SC 05/15/18 09:00 05/17/18 09:18 DC 05/15/18 07:34 42 UNITS Metformin HCl (Glucophage Extended Rel Tab) 500 mg BIDM PO 05/14/18 21:00 06/13/18 20:59 Future Hold 05/15/18 02:15 500 MG Metoprolol Tartrate (Lopressor Tab) 50 mg BID PO 05/14/18 21:00 06/13/18 20:59 05/18/18 08:43 50 MG Simvastatin (Zocor Tab) 80 mg QAM PO 05/15/18 09:00 06/14/18 08:59 05/18/18 08:39 80 MG Irbesartan (Avapro Tab) 300 mg DAILY PO 05/15/18 09:00 06/14/18 08:59 05/18/18 08:40 300 MG Meclizine HCl (Antivert Tab) 12.5 mg TID PRN PO 05/14/18 20:45 06/13/18 20:44 05/15/18 09:26 12.5 MG Tamoxifen Citrate (Nolvadex Tab) 20 mg DAILY PO 05/15/18 09:00 06/14/18 08:59 05/18/18 08:41 20 MG Heparin Sodium/ Dextrose (Heparin 25,000 Unit/500ml D5W) 25,000 unit STK-MED ONCE .ROUTE 05/14/18 19:38 05/14/18 19:39 DC 05/14/18 19:43 25,000 UNIT Heparin Sodium/ Dextrose 500 ml @ 30 mls/hr [id number] IV 05/14/18 20:45 06/13/18 20:44 05/18/18 02:58 32 MLS/HR Carbohydrates (Carbohydrates For Hypoglycemia) 15-30 GRAMS 15 grams if BSG 54-69... UD PRN PO 05/14/18 21:00 06/13/18 20:59 05/15/18 15:51 15 GM Heparin Sodium (Porcine) 7000 unit/Syringe 7 ml @ 10 mls/min 0345 ONCE IV 05/15/18 03:45 05/15/18 03:46 DC 05/15/18 03:56 10 MLS/MIN Furosemide 40 mg/ Syringe 4 ml @ 4 mls/min ONE ONCE IV 05/15/18 17:00 05/15/18 17:01 DC 05/15/18 18:32 4 MLS/MIN Insulin Aspart (novoLOG ASPART) SLIDING SCALE G... ACHS SQ 05/15/18 21:00 06/14/18 20:59 05/18/18 08:42 11 UNITS Insulin Glargine (Lantus Solostar Pen) 32 units NOW STAT SC 05/16/18 09:31 05/16/18 09:32 DC 05/16/18 10:12 32 UNITS Sotalol HCl (Betapace Tab) 80 mg NOW ONCE PO 05/16/18 10:00 05/16/18 10:01 DC 05/16/18 10:05 80 MG Sotalol HCl (Betapace Tab) 80 mg BID PO 05/16/18 21:00 06/15/18 20:59 05/18/18 08:40 80 MG Furosemide 40 mg/ Syringe 4 ml @ 4 mls/min NOW ONCE IV 05/16/18 10:15 05/16/18 10:16 DC 05/16/18 10:07 4 MLS/MIN Furosemide 40 mg/ Syringe 4 ml @ 4 mls/min BID IV 05/16/18 21:00 06/15/18 20:59 05/18/18 08:39 4 MLS/MIN Potassium Chloride (Klor-Con M10) 40 meq BID PO 05/16/18 21:00 06/15/18 20:59 05/18/18 08:39 40 MEQ Potassium Chloride (Klor-Con M10) 40 meq NOW ONCE PO 05/16/18 10:00 05/16/18 10:01 DC 05/16/18 10:07 40 MEQ Magnesium Chloride (Slow-Mag Tab) 64 mg BID PO 05/16/18 21:00 06/15/18 20:59 05/18/18 08:39 64 MG Magnesium Chloride (Slow-Mag Tab) 64 mg NOW ONCE PO 05/16/18 09:45 05/16/18 09:46 DC 05/16/18 12:35 64 MG Metolazone (Zaroxolyn Tab) 2.5 mg NOW ONCE PO 05/16/18 09:45 05/16/18 09:46 DC 05/16/18 10:05 2.5 MG Insulin Glargine (Lantus Solostar Pen) PLEASE SEE PROTOCOL TE... QAM SC 05/17/18 09:30 06/16/18 09:29 05/18/18 08:43 40 UNITS Metolazone (Zaroxolyn Tab) 2.5 mg NOW ONCE PO 05/17/18 10:00 05/17/18 10:18 DC 05/17/18 10:57 2.5 MG Diltiazem HCl (Cardizem Inj) 10 mg TODAY@1030 IV 05/17/18 10:30 05/17/18 10:31 DC 05/17/18 11:24 10 MG Diltiazem HCl 125 mg/Dextrose 125 ml @ 0 mls/hr Q0M PRN IV 05/17/18 10:15 06/16/18 10:14 05/17/18 21:16 10 MLS/HR Sodium Chloride 500 ml @ 999 mls/hr Q31M STAT IV 05/17/18 23:56 05/18/18 00:26 DC 05/18/18 00:16 999 MLS/HR (Jayne Tucker CRNP) Objective Vital Signs Date Time Temp Pulse Resp B/P (MAP) Pulse Ox O2 Delivery O2 Flow Rate FiO2 05/18/18 11:12 36.7 123 18 104/72 (83) 91 Room Air 05/18/18 10:49 125 114/75 (88) 05/18/18 10:34 123 117/82 (94) 05/18/18 08:00 Nasal Cannula 2.0 05/18/18 07:31 36.8 122 18 112/83 (93) 98 Nasal Cannula 2.0 05/18/18 06:58 36.5 122 19 115/81 (92) 96 Nasal Cannula 1.0 05/18/18 02:54 36.9 122 20 103/68 (80) 90 Room Air 05/18/18 01:32 79 05/18/18 00:37 63 86/54 (65) 05/18/18 00:17 69 88/56 (67) 05/17/18 23:49 36.6 66 18 77/46 (56) 94 Nasal Cannula 2.0 05/17/18 23:46 68 75/43 (54) 05/17/18 21:11 93 101/66 (78) 05/17/18 20:00 Nasal Cannula 2.0 05/17/18 19:30 36.7 96 18 105/68 (80) 92 Nasal Cannula 2.0 05/17/18 19:06 96 05/17/18 16:16 36.6 124 21 91/68 (76) 90 Nasal Cannula 2.0 05/17/18 12:30 125 108/73 (85) (Jayne Tucker CRNP) Physical Exam Notes: General: no distress Eyes: normal inspection, PERLL Respiratory: chest non tender, clear to auscultation, normal breath sounds, no respiratory distress, no accessory muscle use Cardiac: irregular rate and rhythm, no rub or gallop, no murmur, +1 pitting edema bilateral LE GI/: active bowel sounds, no abd pain or tenderness, soft, non distended Extremities: normal range of motion, normal strength, non tender Neuro/Psych: alert and oriented x 3, normal mood and affect Skin: normal color, dry (Jayne Tucker CRNP) Laboratory Results Last 24 Hours Test 05/17/18 16:48 05/17/18 20:35 05/17/18 23:47 05/18/18 00:03 Bedside Glucose 158 mg/dl 153 mg/dl 177 mg/dl White Blood Count 9.06 K/uL Red Blood Count 4.57 M/uL Hemoglobin 14.4 g/dL Hematocrit 44.5 % Mean Corpuscular Volume 97.4 fL Mean Corpuscular Hemoglobin 31.5 pg Mean Corpuscular Hemoglobin Concent 32.4 g/dl Platelet Count 198 K/uL Mean Platelet Volume 10.0 fL Neutrophils (%) (Auto) 51.3 % Lymphocytes (%) (Auto) 34.4 % Monocytes (%) (Auto) 9.3 % Eosinophils (%) (Auto) 4.6 % Basophils (%) (Auto) 0.2 % Neutrophils # (Auto) 4.64 K/uL Lymphocytes # (Auto) 3.12 K/uL Monocytes # (Auto) 0.84 K/uL Eosinophils # (Auto) 0.42 K/uL Basophils # (Auto) 0.02 K/uL RDW Standard Deviation 52.1 fL RDW Coefficient of Variation 14.6 % Immature Granulocyte % (Auto) 0.2 % Immature Granulocyte # (Auto) 0.02 K/uL Sodium Level 138 mmol/L Potassium Level 4.7 mmol/L Chloride Level 99 mmol/L Carbon Dioxide Level 36 mmol/L Anion Gap 3.0 mmol/L Blood Urea Nitrogen 24 mg/dl Creatinine 1.36 mg/dl Est Creatinine Clear Calc Drug Dose 55.1 ml/min Estimated GFR () 47.9 Estimated GFR (Non- 41.3 BUN/Creatinine Ratio 17.7 Random Glucose 169 mg/dl Calcium Level 7.7 mg/dl Phosphorus Level 4.0 mg/dl Magnesium Level 2.2 mg/dl Total Bilirubin 0.6 mg/dl Aspartate Amino Transf (AST/SGOT) 18 U/L Alanine Aminotransferase (ALT/SGPT) 20 U/L Alkaline Phosphatase 63 U/L Total Protein 6.2 gm/dl Albumin 2.7 gm/dl Globulin 3.5 gm/dl Albumin/Globulin Ratio 0.8 Test 05/18/18 07:19 05/18/18 07:31 White Blood Count 8.33 K/uL Red Blood Count 4.69 M/uL Hemoglobin 14.7 g/dL Hematocrit 46.2 % Mean Corpuscular Volume 98.5 fL Mean Corpuscular Hemoglobin 31.3 pg Mean Corpuscular Hemoglobin Concent 31.8 g/dl RDW Standard Deviation 52.5 fL RDW Coefficient of Variation 14.8 % Platelet Count 183 K/uL Mean Platelet Volume 10.3 fL Nucleated RBC Absolute Count (auto) 0.02 K/uL Nucleated Red Blood Cells % 0.2 % Activated Partial Thromboplast Time 75.8 SECONDS Partial Thromboplastin Ratio 2.9 Sodium Level 140 mmol/L Potassium Level 4.7 mmol/L Chloride Level 100 mmol/L Carbon Dioxide Level 40 mmol/L Anion Gap 0.0 mmol/L Blood Urea Nitrogen 22 mg/dl Creatinine 1.18 mg/dl Est Creatinine Clear Calc Drug Dose 63.0 ml/min Estimated GFR () 56.8 Estimated GFR (Non- 49.0 BUN/Creatinine Ratio 18.2 Random Glucose 170 mg/dl Calcium Level 8.1 mg/dl Bedside Glucose 202 mg/dl (Jayne Tucker CRNP) Assessment and Plan 63 y/o F who was admitted on 05/14 with new onset afib with RVR A.fib/flutter RVR - per cardiology plan - po sotalol, continue heparin gtt, diltiazem discontinued , will defer to cardiology for further rate control given patient's inability to tolerate diltiazem - echo with normal EF, no wma - trop negative x2 - TSH wnl Diastolic CHF - patient with congestion on chest x ray, sob and lower extremity edema - BID 40 mg IV Lasix and metolozone x1 dose - daily weights - strict I&O - patient is diuresing well DM II: - continue SSI, lantus, hold home metformin - A1c 8.5, lipids wnl - pharmacy glycemic management for hypoglycemic episode HTN: hold Irbesartan today given slight increase in creatinine, likely due to episode of hypotension yesterday resulting in poor perfusion, may be able to restart tomorrow depending on patient's tolerance of other medications COPD: stable, not in exacerbation CAD prevention: aspirin 81mg Current pack per day smoker - smoking cessation education Other: Full code, does not want prolonged mechanical life support, feeding tubes , etc DM AHA diet Heparin gtt for DVT proph (Jayne Tucker CRNP) HEDIS SPECIALIST Physician Supervision Note: I discussed with Jayne Tucker HEDIS SPECIALIST and agree with findings and plan as documented in the note. Any exceptions or clarifications are listed here: None Patient continues to struggle with rate control for atrial fibrillation on sotalol. Diltiazem and cause some lower blood pressures. Patient is continues to have cardiology oversight decisions for long-term anticoagulation has been made and changed Eliquis from heparin Documented By: Alfonso Cano (Alfonso Cano M.D.)
--- NOTE | 2018-05-18 13:26 | Pharmacy Progress Note ---
Pharmacy Glycemic Short Note 2 Date of Service May 18, 2018. OUTPATIENT ANTIDIABETIC REGIMEN: * Lantus 42u QAM, Novolog TIDM, MetforminER 500mg BID Test 05/17/18 16:48 05/17/18 20:35 05/17/18 23:47 05/18/18 00:03 Bedside Glucose 158 mg/dl (70-90) 153 mg/dl (70-90) 177 mg/dl (70-90) Random Glucose 169 mg/dl (70-99) Test 05/18/18 07:19 05/18/18 07:31 05/18/18 11:40 Random Glucose 170 mg/dl (70-99) Bedside Glucose 202 mg/dl (70-90) 83 mg/dl (70-90) ASSESSMENT: * Blood sugars mostly at goal, but did rise 50 points overnight so I did increase basal slightly this morning. * Blood sugar is now down to 83mg/dl at lunch, unknown why, no changes at this time. PLAN FOR INPATIENT GLYCEMIC CONTROL: * Hold outpatient oral diabetes medications * Basal insulin * INCREASE Lantus 40 units for BSGs <220, 45units w/ BSGs >/=220mg/dl * Bolus insulin * NovoLog per scale ACHS or Q6hrs while NPO * CHANGE TO Goal Range: Low 120 mg/dL - High 150 mg/dL * Correction Factor: 25 mg/dL/unit * Nutritional / Prandial insulin per carb ratio of 1 unit per 8 grams CHO consumed
[2018-05-18 15:04] LABS: PTT PATIENT 59.5 SECONDS (21.0-31.0)
[2018-05-18] MEDS ORDERED: APIXABAN 5 MG TAB PO ONE (15:45)
--- NOTE | 2018-05-18 15:56 | Cardiology Follow-Up ---
Subjective General Date of Service: May 18, 2018. Chief Complaint: follow up shortness of breath Pt evaluation today including: conversation w/ patient, conversation w/ family , physical exam History of Present Illness The patient is a 63 year old female seen in follow-up with initial consultation having been performed by Dr. Rapp of our practice. The patient has remained tachycardic with ventricular rates in the range of 120 bpm. She previously been on diltiazem, but her blood pressure declined with systolic blood pressure reading down to around 70 mmHg apparently last evening. Diltiazem was apparently therefore put on hold and she received 500 mL fluid bolus with improvement in her blood pressure. The patient initially presented on 05/14/18. She states that her symptoms were originally noted a week ago, last Sunday, [place] She started having progressive shortness of breath with exertion. She is typically able to walk a reasonable amount of distance but she noted with walking a very short distance she was profoundly short of breath. She also felt like she was gaining weight and noted abdominal fullness as if she was retaining fluid specifically in her belly and in her lower legs. She had no subjective sensation that her heart was racing. She was ultimately assessed in the emergency department and was found to have volume overload with abdominal fullness, lower extremity edema, and she was also found to have atrial flutter with rapid ventricular response. Allergies Coded Allergies: Amoxicillin (Verified Allergy, Severe, SOB, RASH, 02/21/18) Penicillins (Verified Allergy, Severe, SOB, RASH, 02/21/18) RESPIRATORY DISTRESS & RASH Clarithromycin (Verified Allergy, Unknown, unknown, 02/21/18) Clindamycin (Verified Allergy, Unknown, UNKNOWN, 02/21/18) Fluconazole (Verified Allergy, Unknown, UNKNOWN, 02/21/18) Sulfamethoxazole w/Trimethoprim (Verified Allergy, Unknown, UNKNOWN, ) Codeine (Verified Adverse Reaction, Mild, ITCHING, NAUSEA, 02/21/18) Social History Smoking Status: Current Every Day Smoker Hx Tobacco Use In Past Year?: Yes Hx Alcohol Use - Type And Amou: No Hx Substance Use - Type And Am: No Problem List Medical Problems: (1) Atrial flutter with rapid ventricular response Status: Acute Physical Exam Vital Signs Last Vital Signs Documentation Date Time Temp Pulse Resp B/P (MAP) Pulse Ox O2 Delivery O2 Flow Rate FiO2 05/18/18 11:12 36.7 123 18 104/72 (83) 91 Room Air 05/18/18 08:00 2.0 Physical Exam Constitutional: General Apperance: obese Head: atraumatic Neck: supple Lungs: Auscultation: no wheezing, no rales/crackles, no rhonchi Cardiovascular: Heart Auscultation: no murmurs, tachycardia Abdomen: Inspection & Palpation: soft, no tenderness, guarding & rebound Extremities: pertinent finding (Trace to 1+ lower extremity edema to the ankles and mid tibia) Neurologic: Gait & Station: pertinent finding (No focal deficits) Assessment and Plan Assessment and Plan Impression: 63-year-old female 1. Atrial flutter with rapid ventricular response 2. Fluid retention, perhaps due to diastolic dysfunction or perhaps just due to gross dietary this adherence with sodium intake -Echocardiogram this admission revealed grossly normal LV and RV function without significant valvular abnormality Discussion/recommendations: The patient typically follows with cardiology due to a history of sensed ventricular ectopy. She is therefore metoprolol tartrate 50 mg twice daily on a chronic basis. Her kidney function is normal. And her electrolytes are stable. She had been on furosemide 40 mg IV every 12 and had 3.8 L of urine output on , and 5.6 L of urine output on 05/17/18. So far today she has already had 3.4 L of urine output. She likely does have some degree of residual fluid retention. I am going to reduce her furosemide dose back to 40 mg IV once per day with next dose tomorrow morning in order to avoid further hypotension as I am going to make multiple heart rate medication changes. Diltiazem has been discontinued as it did not offer significant heart rate benefit to her, and her blood pressure seemed to be worse. Her prior to hospital dose of metoprolol tartrate 50 mg twice daily is going to be continued for now. She had been started on sotalol by Dr. Rapp earlier this hospital stay 80 mg twice daily. Her corrected QT appears stable, however it is somewhat difficult to interpret given her tachycardia. She has had no significant ventricular arrhythmias, and I think it is reasonable to increase the dose to 120 mg twice daily. In time, perhaps we will be able to have her on sotalol without the addition of metoprolol. I am going to give her a dose of IV digoxin now as well as in 6 hours at 10 PM. Atrial flutter is often somewhat refractory to medications, and anticipates patient is going to require transesophageal echocardiogram guided direct current cardioversion this hospital stay. Right now, although her ventricular rate remains in the 120 bpm range, she is completely comfortable and she is astigmatic. She states that she feels profoundly improved compared to admission. I do not think we have to overreact to reduce her heart rate additionally at present, but rather make the above medication changes. In terms of stroke prophylaxis, the patient has apparently been in atrial flutter for at least a week if not longer based on her symptoms. I fraction heparin was initiated this hospital stay. I called her outpatient pharmacy, and they are able to provide information for me that her [id number]-[id number] cost for Eliquis 5 twice daily would be $0 co-pay. 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 I discussed the above changes with the patient at length. Her sister was also there. Laboratory Results Last 24 Hours Test 05/17/18 16:48 05/17/18 20:35 05/17/18 23:47 05/18/18 00:03 Bedside Glucose 158 mg/dl 153 mg/dl 177 mg/dl White Blood Count 9.06 K/uL Red Blood Count 4.57 M/uL Hemoglobin 14.4 g/dL Hematocrit 44.5 % Mean Corpuscular Volume 97.4 fL Mean Corpuscular Hemoglobin 31.5 pg Mean Corpuscular Hemoglobin Concent 32.4 g/dl Platelet Count 198 K/uL Mean Platelet Volume 10.0 fL Neutrophils (%) (Auto) 51.3 % Lymphocytes (%) (Auto) 34.4 % Monocytes (%) (Auto) 9.3 % Eosinophils (%) (Auto) 4.6 % Basophils (%) (Auto) 0.2 % Neutrophils # (Auto) 4.64 K/uL Lymphocytes # (Auto) 3.12 K/uL Monocytes # (Auto) 0.84 K/uL Eosinophils # (Auto) 0.42 K/uL Basophils # (Auto) 0.02 K/uL RDW Standard Deviation 52.1 fL RDW Coefficient of Variation 14.6 % Immature Granulocyte % (Auto) 0.2 % Immature Granulocyte # (Auto) 0.02 K/uL Sodium Level 138 mmol/L Potassium Level 4.7 mmol/L Chloride Level 99 mmol/L Carbon Dioxide Level 36 mmol/L Anion Gap 3.0 mmol/L Blood Urea Nitrogen 24 mg/dl Creatinine 1.36 mg/dl Est Creatinine Clear Calc Drug Dose 55.1 ml/min Estimated GFR () 47.9 Estimated GFR (Non- 41.3 BUN/Creatinine Ratio 17.7 Random Glucose 169 mg/dl Calcium Level 7.7 mg/dl Phosphorus Level 4.0 mg/dl Magnesium Level 2.2 mg/dl Total Bilirubin 0.6 mg/dl Aspartate Amino Transf (AST/SGOT) 18 U/L Alanine Aminotransferase (ALT/SGPT) 20 U/L Alkaline Phosphatase 63 U/L Total Protein 6.2 gm/dl Albumin 2.7 gm/dl Globulin 3.5 gm/dl Albumin/Globulin Ratio 0.8 Test 05/18/18 07:19 05/18/18 07:31 05/18/18 11:40 05/18/18 14:32 White Blood Count 8.33 K/uL Red Blood Count 4.69 M/uL Hemoglobin 14.7 g/dL Hematocrit 46.2 % Mean Corpuscular Volume 98.5 fL Mean Corpuscular Hemoglobin 31.3 pg Mean Corpuscular Hemoglobin Concent 31.8 g/dl RDW Standard Deviation 52.5 fL RDW Coefficient of Variation 14.8 % Platelet Count 183 K/uL Mean Platelet Volume 10.3 fL Nucleated RBC Absolute Count (auto) 0.02 K/uL Nucleated Red Blood Cells % 0.2 % Activated Partial Thromboplast Time 75.8 SECONDS 59.5 SECONDS Partial Thromboplastin Ratio 2.9 2.3 Sodium Level 140 mmol/L Potassium Level 4.7 mmol/L Chloride Level 100 mmol/L Carbon Dioxide Level 40 mmol/L Anion Gap 0.0 mmol/L Blood Urea Nitrogen 22 mg/dl Creatinine 1.18 mg/dl Est Creatinine Clear Calc Drug Dose 63.0 ml/min Estimated GFR () 56.8 Estimated GFR (Non- 49.0 BUN/Creatinine Ratio 18.2 Random Glucose 170 mg/dl Calcium Level 8.1 mg/dl Bedside Glucose 202 mg/dl 83 mg/dl
[2018-05-18] MEDS ORDERED: DIGOXIN IV 250 MCG in SYRINGE 9 ML IV ONE ×2 (16:00→22:00)
[2018-05-18] MEDS ORDERED: APIXABAN 5 MG TAB PO SCH (21:00)
[2018-05-19] MEDS: APIXABAN 5 MG TAB PO SCH ×2 (02:56→15:20)
[2018-05-19 03:54] VITALS: BP 105/72; PULSE 123; TEMP 36.6; O2SAT 91
[2018-05-19 06:54] VITALS: BP 123/81; PULSE 123; TEMP 36.6; O2SAT 90
[2018-05-19 07:17] LABS: CALCIUM 8.5 mg/dl (8.5-10.1); CREATININE 0.99 mg/dl (0.60-1.20); POTASSIUM 4.8 mmol/L (3.5-5.1)
[2018-05-19] MEDS: METOPROLOL TARTRATE 50 MG TAB PO SCH (07:45)
[2018-05-19] MEDS: SOTALOL HCL 80 MG TAB PO SCH ×2 (07:45→20:43)
[2018-05-19] MEDS: SIMVASTATIN 80 MG TAB PO SCH (07:46)
[2018-05-19] MEDS: EZETIMIBE 10MG TAB PO SCH (07:46)
[2018-05-19] MEDS: ASPIRIN 81 MG ECTAB PO SCH (07:47)
[2018-05-19] MEDS: POTASSIUM CHLORIDE 10 MEQ TABCR PO SCH ×2 (07:48→20:44)
[2018-05-19] MEDS: MAGNESIUM CHLORIDE 64MG DELAYED REL TAB PO SCH ×2 (07:48→20:44)
[2018-05-19] MEDS: INSULIN ASPART 100 UNITS/ML 3 ML PEN SQ SCH ×4 (07:52→20:43)
[2018-05-19] MEDS: INSULIN GLARGINE SOLOSTAR 100 UNITS/ML 3 ML PEN SC SCH (07:53)
[2018-05-19] MEDS: TAMOXIFEN CITRATE 10 MG TAB PO SCH (07:54)
[2018-05-19] MEDS ORDERED: FUROSEMIDE INJ 40 MG in SYRINGE 0 ML IV SCH (09:00)
--- NOTE | 2018-05-19 10:25 | Cardiology Follow-Up ---
Subjective General Date of Service: May 19, 2018. Chief Complaint: follow up shortness of breath Pt evaluation today including: conversation w/ patient, physical exam History of Present Illness The patient is a 63 year old female seen in cardiology follow-up. Patient states she feels well. Despite 2 doses of IV digoxin and increasing her sotalol dose, she remains in atrial flutter with rapid ventricular response, jugular rates have predominately been in the range of 120 bpm. Her blood pressure has been stable without additional hypotension off of diltiazem. Heparin is now discontinued and she has received her first 2 doses of Eliquis 5 mg. Allergies Coded Allergies: Amoxicillin (Verified Allergy, Severe, SOB, RASH, 02/21/18) Penicillins (Verified Allergy, Severe, SOB, RASH, 02/21/18) RESPIRATORY DISTRESS & RASH Clarithromycin (Verified Allergy, Unknown, unknown, 02/21/18) Clindamycin (Verified Allergy, Unknown, UNKNOWN, 02/21/18) Fluconazole (Verified Allergy, Unknown, UNKNOWN, 02/21/18) Sulfamethoxazole w/Trimethoprim (Verified Allergy, Unknown, UNKNOWN, ) Codeine (Verified Adverse Reaction, Mild, ITCHING, NAUSEA, 02/21/18) Social History Smoking Status: Current Every Day Smoker Hx Tobacco Use In Past Year?: Yes Hx Alcohol Use - Type And Amou: No Hx Substance Use - Type And Am: No Problem List Medical Problems: (1) Atrial flutter with rapid ventricular response Status: Acute Physical Exam Vital Signs Last Vital Signs Documentation Date Time Temp Pulse Resp B/P (MAP) Pulse Ox O2 Delivery O2 Flow Rate FiO2 05/19/18 08:00 Room Air 05/19/18 06:54 36.6 123 17 123/81 (95) 90 05/18/18 08:00 2.0 Physical Exam Constitutional: General Apperance: obese Head: atraumatic Neck: supple Lungs: Auscultation: no wheezing, no rales/crackles, no rhonchi Cardiovascular: Heart Auscultation: no murmurs, tachycardia Abdomen: Inspection & Palpation: soft, no tenderness, guarding & rebound Extremities: pertinent finding (Trace to 1+ lower extremity edema to the ankles and mid tibia) Neurologic: Gait & Station: pertinent finding (No focal deficits) Assessment and Plan Assessment and Plan Impression: 63-year-old female 1. Atrial flutter with rapid ventricular response -Underlying stroke risk factors of female gender, hypertension, diabetes with [id number] score of at least 3 predicting moderate to high risk of cardioembolic stroke, given the lack of significant bleeding risk, anticoagulation for stroke prophylaxis is indicated. 2. Fluid retention, perhaps due to diastolic dysfunction or perhaps just due to gross dietary disadherence with sodium intake -Echocardiogram this admission revealed grossly normal LV and RV function without significant valvular abnormality Discussion/recommendations: Stroke prophylaxis-patient transitioned from heparin to Eliquis 5 mg twice daily. 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 I had called her outpatient pharmacy on 05/18/18, a $0 co-pay was reported to me. Atrial flutter-rapid ventricular response persists despite attempts at rate control.She had already been on metoprolol tartrate 25 mg twice daily as an outpatient for frequent PVCs. Sotalol had been added. Corrected QT interval is stable. Plan to proceed with transesophageal echocardiogram guided direct current cardioversion tomorrow 05/20/18. Because of the unknown duration of the atrial flutter, transesophageal echocardiogram guidance is necessary. Informed consent was obtained for transesophageal echocardiogram and cardioversion was placed on the chart. I spoke to Karuna of the OR scheduling desk, and had the patient added to the anesthesia schedule for tomorrow am, [address] Concepcion who is stone banker with anesthesia and communicated the need to add the patient to the schedule with him. Pt to be NPO after MN except meds. She is to received her 3 am Eliquis dose, and am metoprolol and sotalol in preparation for the procedure. Will hold am IV furosemide. Laboratory Results Last 24 Hours Test 05/18/18 11:40 05/18/18 14:32 05/18/18 16:39 05/18/18 19:39 Bedside Glucose 83 mg/dl 120 mg/dl 177 mg/dl Activated Partial Thromboplast Time 59.5 SECONDS Partial Thromboplastin Ratio 2.3 Test 05/18/18 20:59 05/19/18 06:14 05/19/18 07:36 Bedside Glucose 120 mg/dl 124 mg/dl Sodium Level 142 mmol/L Potassium Level 4.8 mmol/L Chloride Level 103 mmol/L Carbon Dioxide Level 37 mmol/L Anion Gap 3.0 mmol/L Blood Urea Nitrogen 18 mg/dl Creatinine 0.99 mg/dl Est Creatinine Clear Calc Drug Dose 74.0 ml/min Estimated GFR () 70.3 Estimated GFR (Non- 60.6 BUN/Creatinine Ratio 18.6 Random Glucose 135 mg/dl Calcium Level 8.5 mg/dl
--- NOTE | 2018-05-19 11:34 | Anesthesiology Progress Note ---
Anesthesia Progress Note Date of Service May 19, 2018. Progress Notes Ms. Perkins is scheduled for a JIMBO/cardioversion tomorrow with Dr. Edwards for A flutter with RVR. ECG shows A flutter with 2:1 AV conduction. Multiple allergies as noted above. Has had several anesthetics previously and is notable for sign PONV. Most recent surgery was a right breast biopsy in February of 2018 and she tolerated GA with LMA easily. Other PMH sig for COPD (no home oxygen), HTN, diastolic CHF, GERD, IDDM, obesity and currently smoker. Plan for IV sedation and patient consented after questions answered. Appears optimized for procedure tomorrow (SOB has improved and patient sitting up in bed, reading the newspaper without any s/s of respiratory distress during interview).
[2018-05-19 12:20] VITALS: BP 98/62; PULSE 120; TEMP 37; O2SAT 91
--- NOTE | 2018-05-19 12:37 | Hospitalist Progress Note ---
Hospitalist Progress Note Date of Service May 19, 2018. Subjective Pt evaluation today including: conversation w/ patient, physical exam, chart review, lab review, review of inpatient medication list Voiding: no voiding problems Ms. Perkins has no complaints today. She continues to run an A.flutter with RVR on the monitor. ROS Constitutional: no chills, aches, sweats or fever Respiratory: no sob,cough, sputum, or wheezing Cardiac: no chest pain, palpitations, edema, orthopnea or lightheadedness GI: no abdominal pain, nausea, vomiting, diarrhea or constipation : no dysuria or hesitancy Extremities: no joint pain or weakness Skin: no rash All other systems reviewed and negative Medications Medications Administered Medications (Trade) Dose Ordered Sig/Deric Route Start Time Stop Time Status Last Admin Dose Admin Sodium Chloride 1,000 ml @ 999 mls/hr Q1H1M STAT IV 05/14/18 16:53 05/14/18 17:53 DC 05/14/18 16:53 999 MLS/HR Adenosine (Adenosine Iv) 6 mg STK-MED ONCE .ROUTE 05/14/18 17:41 05/14/18 17:42 DC 05/14/18 17:41 6 MG Diltiazem HCl (Cardizem Bolus From Bag) 10 mg 1800 ONCE IV 05/14/18 18:00 05/14/18 18:01 DC 05/14/18 18:00 10 MG Diltiazem HCl 125 mg/Dextrose 125 ml @ 0 mls/hr Q0M PRN IV 05/14/18 18:00 05/16/18 09:34 DC 05/16/18 07:56 5 MLS/HR Albuterol (Ventolin Hfa Inhaler) 2 puffs Q6H PRN INH 05/14/18 19:00 06/13/18 18:59 05/15/18 02:35 2 PUFFS Aspirin (Ecotrin Tab) 81 mg QAM PO 05/15/18 09:00 06/14/18 08:59 05/19/18 07:47 81 MG EZETIMIBE (Zetia Tab) 10 mg QAM PO 05/15/18 09:00 06/14/18 08:59 05/19/18 07:46 10 MG Insulin Aspart (novoLOG ASPART) TIDM SQ 05/15/18 07:30 05/15/18 18:16 DC 05/15/18 12:17 7 UNITS Insulin Glargine (Lantus Solostar Pen) 42 units QAM SC 05/15/18 09:00 05/17/18 09:18 DC 05/15/18 07:34 42 UNITS Metformin HCl (Glucophage Extended Rel Tab) 500 mg BIDM PO 05/14/18 21:00 06/13/18 20:59 Future Hold 05/15/18 02:15 500 MG Metoprolol Tartrate (Lopressor Tab) 50 mg BID PO 05/14/18 21:00 06/13/18 20:59 05/19/18 07:45 50 MG Simvastatin (Zocor Tab) 80 mg QAM PO 05/15/18 09:00 06/14/18 08:59 05/19/18 07:46 80 MG Irbesartan (Avapro Tab) 300 mg DAILY PO 05/15/18 09:00 06/14/18 08:59 Future Hold 05/18/18 08:40 300 MG Meclizine HCl (Antivert Tab) 12.5 mg TID PRN PO 05/14/18 20:45 06/13/18 20:44 05/15/18 09:26 12.5 MG Tamoxifen Citrate (Nolvadex Tab) 20 mg DAILY PO 05/15/18 09:00 06/14/18 08:59 05/19/18 07:54 20 MG Heparin Sodium/ Dextrose (Heparin 25,000 Unit/500ml D5W) 25,000 unit STK-MED ONCE .ROUTE 05/14/18 19:38 05/14/18 19:39 DC 05/14/18 19:43 25,000 UNIT Heparin Sodium/ Dextrose 500 ml @ 30 mls/hr [id number] IV 05/14/18 20:45 05/18/18 15:41 DC 05/18/18 09:45 30 MLS/HR Carbohydrates (Carbohydrates For Hypoglycemia) 15-30 GRAMS 15 grams if BSG 54-69... UD PRN PO 05/14/18 21:00 06/13/18 20:59 05/15/18 15:51 15 GM Heparin Sodium (Porcine) 7000 unit/Syringe 7 ml @ 10 mls/min 0345 ONCE IV 05/15/18 03:45 05/15/18 03:46 DC 05/15/18 03:56 10 MLS/MIN Furosemide 40 mg/ Syringe 4 ml @ 4 mls/min ONE ONCE IV 05/15/18 17:00 05/15/18 17:01 DC 05/15/18 18:32 4 MLS/MIN Insulin Aspart (novoLOG ASPART) SLIDING SCALE G... ACHS SQ 05/15/18 21:00 06/14/18 20:59 05/19/18 07:52 8 UNITS Insulin Glargine (Lantus Solostar Pen) 32 units NOW STAT SC 05/16/18 09:31 05/16/18 09:32 DC 05/16/18 10:12 32 UNITS Sotalol HCl (Betapace Tab) 80 mg NOW ONCE PO 05/16/18 10:00 05/16/18 10:01 DC 05/16/18 10:05 80 MG Sotalol HCl (Betapace Tab) 80 mg BID PO 05/16/18 21:00 05/18/18 15:46 DC 05/18/18 08:40 80 MG Furosemide 40 mg/ Syringe 4 ml @ 4 mls/min NOW ONCE IV 05/16/18 10:15 05/16/18 10:16 DC 05/16/18 10:07 4 MLS/MIN Furosemide 40 mg/ Syringe 4 ml @ 4 mls/min BID IV 05/16/18 21:00 05/18/18 15:49 DC 05/18/18 08:39 4 MLS/MIN Potassium Chloride (Klor-Con M10) 40 meq BID PO 05/16/18 21:00 06/15/18 20:59 05/19/18 07:48 40 MEQ Potassium Chloride (Klor-Con M10) 40 meq NOW ONCE PO 05/16/18 10:00 05/16/18 10:01 DC 05/16/18 10:07 40 MEQ Magnesium Chloride (Slow-Mag Tab) 64 mg BID PO 05/16/18 21:00 06/15/18 20:59 05/19/18 07:48 64 MG Magnesium Chloride (Slow-Mag Tab) 64 mg NOW ONCE PO 05/16/18 09:45 05/16/18 09:46 DC 05/16/18 12:35 64 MG Metolazone (Zaroxolyn Tab) 2.5 mg NOW ONCE PO 05/16/18 09:45 05/16/18 09:46 DC 05/16/18 10:05 2.5 MG Insulin Glargine (Lantus Solostar Pen) PLEASE SEE PROTOCOL TE... QAM SC 05/17/18 09:30 06/16/18 09:29 05/19/18 07:53 40 UNITS Metolazone (Zaroxolyn Tab) 2.5 mg NOW ONCE PO 05/17/18 10:00 05/17/18 10:18 DC 05/17/18 10:57 2.5 MG Diltiazem HCl (Cardizem Inj) 10 mg TODAY@1030 IV 05/17/18 10:30 05/17/18 10:31 DC 05/17/18 11:24 10 MG Diltiazem HCl 125 mg/Dextrose 125 ml @ 0 mls/hr Q0M PRN IV 05/17/18 10:15 05/18/18 14:38 DC 05/17/18 21:16 10 MLS/HR Sodium Chloride 500 ml @ 999 mls/hr Q31M STAT IV 05/17/18 23:56 05/18/18 00:26 DC 05/18/18 00:16 999 MLS/HR Miscellaneous (Stop Order) 1 ea TODAY@2100 N/A 05/18/18 21:00 05/18/18 21:30 DC 05/18/18 16:13 1 EA Apixaban (Eliquis) 5 mg Q12H PO 05/19/18 03:00 06/18/18 02:59 05/19/18 02:56 5 MG Apixaban (Eliquis) 5 mg 1545 ONCE PO 05/18/18 15:45 05/18/18 15:46 DC 05/18/18 16:03 5 MG Digoxin 250 mcg/ Syringe 10 ml @ 2 mls/min 1600 ONCE IV 05/18/18 16:00 05/18/18 16:04 DC 05/18/18 16:13 2 MLS/MIN Digoxin 250 mcg/ Syringe 10 ml @ 2 mls/min 2200 ONCE IV 05/18/18 22:00 05/18/18 22:04 DC 05/18/18 22:25 2 MLS/MIN Sotalol HCl (Betapace Tab) 120 mg Q12 PO 05/18/18 21:00 06/17/18 20:59 05/19/18 07:45 120 MG Furosemide 40 mg/ Syringe 4 ml @ 4 mls/min DAILY IV 05/19/18 09:00 06/18/18 08:59 Future Hold 05/19/18 07:44 4 MLS/MIN Objective Vital Signs Date Time Temp Pulse Resp B/P (MAP) Pulse Ox O2 Delivery O2 Flow Rate FiO2 05/19/18 08:00 Room Air 05/19/18 06:54 36.6 123 17 123/81 (95) 90 Room Air 05/19/18 03:54 36.6 123 19 105/72 (83) 91 Room Air 05/18/18 23:24 36.4 118 20 94/54 (67) 91 Room Air 05/18/18 22:25 126 110/76 (87) 05/18/18 22:25 122 05/18/18 21:01 130 100/69 (79) 05/18/18 20:13 36.9 130 20 109/72 (84) 91 Room Air 05/18/18 20:00 Room Air 05/18/18 16:17 Room Air 05/18/18 16:13 123 05/18/18 15:39 36.6 14 104/72 (83) 90 Room Air Physical Exam Notes: General: no distress Eyes: normal inspection, PERLL Respiratory: chest non tender, clear to auscultation, normal breath sounds, no respiratory distress, no accessory muscle use Cardiac: irregular rate and rhythm, no rub or gallop, no murmur, no edema, no jvd GI/: active bowel sounds, no abd pain or tenderness, soft, non distended Extremities: normal range of motion, normal strength, non tender Neuro/Psych: alert and oriented x 3, normal mood and affect Skin: normal color, dry Laboratory Results Last 24 Hours Test 05/18/18 14:32 05/18/18 16:39 05/18/18 19:39 05/18/18 20:59 Activated Partial Thromboplast Time 59.5 SECONDS Partial Thromboplastin Ratio 2.3 Bedside Glucose 120 mg/dl 177 mg/dl 120 mg/dl Test 05/19/18 06:14 05/19/18 07:36 05/19/18 11:44 Sodium Level 142 mmol/L Potassium Level 4.8 mmol/L Chloride Level 103 mmol/L Carbon Dioxide Level 37 mmol/L Anion Gap 3.0 mmol/L Blood Urea Nitrogen 18 mg/dl Creatinine 0.99 mg/dl Est Creatinine Clear Calc Drug Dose 74.0 ml/min Estimated GFR () 70.3 Estimated GFR (Non- 60.6 BUN/Creatinine Ratio 18.6 Random Glucose 135 mg/dl Calcium Level 8.5 mg/dl Bedside Glucose 124 mg/dl 268 mg/dl Assessment and Plan 63 y/o F who was admitted on 05/14 with new onset afib with RVR A.fib/flutter RVR - per cardiology plan - continue po sotalol, home metoprolol, started on apixaban, dig x2 doses last night - plan is for JIMBO and cardioversion tomorrow. - echo with normal EF, no wma - trop negative x2 - TSH wnl Diastolic CHF - patient initially with congestion on chest x ray, sob and lower extremity edema - Decreased IV lasix to daily - daily weights - strict I&O - patient is diuresing well almost 6L deficit since admission DM II: - continue SSI, lantus, hold home metformin - A1c 8.5, lipids wnl - pharmacy glycemic management for hypoglycemic episode HTN: continue to hold Irbesartan today for low normal bp COPD: stable, not in exacerbation CAD prevention: aspirin 81mg Current pack per day smoker - smoking cessation education Other: Full code, does not want prolonged mechanical life support, feeding tubes , etc DM AHA diet Heparin gtt for DVT proph
[2018-05-19 15:32] VITALS: BP 104/73; PULSE 133; TEMP 36.7; O2SAT 90
[2018-05-19 19:32] VITALS: BP 118/83; PULSE 113; TEMP 36.8; O2SAT 99
[2018-05-19 23:35] VITALS: BP 108/70; PULSE 122; TEMP 36.6; O2SAT 93
[2018-05-20] VITALS (11 sets, daily range): BP systolic 102–138; BP diastolic 64–87; PULSE 66–133; TEMP 36.5–36.8; O2SAT 88–98; Ht 165.1 cm; Wt 114.0 kg
[2018-05-20] MEDS: APIXABAN 5 MG TAB PO SCH ×2 (02:43→14:58)
[2018-05-20 06:50] LABS: HEMATOCRIT 51.7 % (37-47); HEMOGLOBIN 16.4 g/dL (12.0-16.0); MEAN CELL VOLUME 98.1 fL (80-100); MEAN CORPUSCULAR HEMOGLOBIN 31.1 pg (25-34); MEAN CORPUSCULAR HGB CONC 31.7 g/dl (32-36); MEAN PLATELET VOLUME 10.7 fL (7.4-10.4); PLATELET COUNT 180 K/uL (130-400); RED CELL DISTRIBUTION WIDTH CV 14.5 % (11.5-14.5); RED CELL DISTRIBUTION WIDTH SD 51.8 fL (36.4-46.3); WHITE BLOOD COUNT 8.74 K/uL (4.8-10.8)
[2018-05-20 06:59] LABS: INR 1.1 (0.9-1.1); PTT PATIENT 25.5 SECONDS (21.0-31.0)
[2018-05-20 07:26] LABS: CALCIUM 8.5 mg/dl (8.5-10.1); CREATININE 0.97 mg/dl (0.60-1.20); POTASSIUM 4.9 mmol/L (3.5-5.1)
[2018-05-20] MEDS: INSULIN ASPART 100 UNITS/ML 3 ML PEN SQ SCH ×4 (07:36→20:46)
--- NOTE | 2018-05-20 08:08 | Anesthesiology Progress Note ---
Anesthesia Post Op Note Date & Time May 20, 2018 at 08:07 Vital Signs Pain Intensity: 0 Vital Signs Past 12 Hours Date Time Temp Pulse Resp B/P (MAP) Pulse Ox O2 Delivery O2 Flow Rate FiO2 05/20/18 07:47 124 20 122/87 98 Nasal Cannula 6 05/20/18 07:25 36.7 128 20 121/77 (92) 95 Room Air 05/20/18 07:00 Room Air 05/20/18 02:40 36.7 123 22 113/78 (90) 93 Room Air 05/19/18 23:35 36.6 122 18 108/70 (83) 93 Room Air Notes Mental Status: alert / awake / arousable, participated in evaluation Pt Amnestic to Procedure: Yes Nausea / Vomiting: adequately controlled Pain: adequately controlled Airway Patency, RR, SpO2: stable & adequate BP & HR: stable & adequate Hydration State: stable & adequate Anesthetic Complications: no major complications apparent
[2018-05-20] MEDS ORDERED: PROPOFOL IV EMULSION 10 MG/ML 20 ML VIAL ONE (08:14)
--- NOTE | 2018-05-20 08:15 | Cardioversion ---
Electricial Cardioversion Rpt Date of Service: 05/20/18 Electrical Cardioversion Rprt Procedure Date May 20, 2018. Pre-Procedure Diagnosis Symptomatic atrial flutter with rapid ventricular response Post-Procedure Diagnosis The left atrial appendage thrombus, successful conversion to sinus rhythm Procedure(s) Performed Transesophageal echocardiogram guided direct current cardioversion Clinical Marketing Manager Alexis Edwards DO Room Service Waiter/Waitress(s) Cheryl Sanchez ,registered manager lab Estimated Blood Loss None Preliminary Findings After informed consent was obtained and a timeout was performed the patient was sedated with the assistance of Dr. Trinh of anesthesia receiving 90 mg of IV propofol. The transesophageal echocardiogram probe was passed into the midesophagus without difficulty. No pericardial effusion was present. The left atrium is moderately enlarged. A biplane view of the left atrial appendage was obtained with no evidence of left atrial thrombus or left atrial appendage thrombus. Although the images that were captured and the echo machine somewhat incompletely illustrate the left atrial appendage, the appendage was viewed in the biplane view adequately in real-time. The patient became hypoxic with pulse oximetry down to the 80% range, and therefore the transesophageal echocardiogram portion of the study was discontinued. The patient's respiratory status stabilized by Positioning her completely supine and utilizing a jaw thrust maneuver and bag valve mask with normalization of her pulse ox. The patient then underwent synchronized direct current cardioversion receiving a single dose of 300 J of biphasic energy with successful conversion to sinus rhythm. Post procedure, the patient was awake and conversant with no focal neurologic deficits. Postprocedure EKG revealed sinus rhythm at 71 bpm with occasional PVCs. The corrected QT interval was mildly prolonged at 484 ms. T-wave inversions are noted in the anterior leads V2 and V3. Recommendations 1. Reduce sotalol dose to 80 mg twice daily. 2. Continue Eliquis for stroke prophylaxis 3. Plan to review her sinus rhythm EKG comparison to past historical EKGs, I anticipate that there is not a prior EKG with her in sinus rhythm available in her outpatient record. -Post procedure two parasternal images were obtained in the parasternal long and short axis revealing grossly normal biventricular function on limited views post cardioversion. Based on blood work today including elevated CO2 and sodium level, will hold off on further diuretic therapy for now. Anesthesia Propofol 90 mg Complication(s) Transient hypoxia requiring bag valve mask support. Disposition Recover in the post cardiac catheterization recovery suite, then transfer back to PCU
[2018-05-20] MEDS: SOTALOL HCL 80 MG TAB PO SCH ×2 (09:00→20:47)
[2018-05-20] MEDS: EZETIMIBE 10MG TAB PO SCH (09:00)
[2018-05-20] MEDS: SIMVASTATIN 80 MG TAB PO SCH (09:00)
[2018-05-20] MEDS: ASPIRIN 81 MG ECTAB PO SCH (09:00)
[2018-05-20] MEDS: MAGNESIUM CHLORIDE 64MG DELAYED REL TAB PO SCH ×2 (09:01→20:47)
[2018-05-20] MEDS: TAMOXIFEN CITRATE 10 MG TAB PO SCH (09:03)
[2018-05-20] MEDS: INSULIN GLARGINE SOLOSTAR 100 UNITS/ML 3 ML PEN SC SCH (09:03)
--- NOTE | 2018-05-20 09:22 | Pharmacy Progress Note ---
Pharmacy Glycemic Short Note 2 Date of Service May 20, 2018. OUTPATIENT ANTIDIABETIC REGIMEN: * Lantus 42u QAM, Novolog TIDM, MetforminER 500mg BID Test 05/19/18 11:44 05/19/18 16:19 05/19/18 20:31 05/20/18 06:20 Bedside Glucose 268 mg/dl (70-90) 80 mg/dl (70-90) 172 mg/dl (70-90) Random Glucose 105 mg/dl (70-99) Test 05/20/18 07:05 Bedside Glucose 99 mg/dl (70-90) ASSESSMENT: 05/20/18 * Patient received 74 units of insulin yesterday * Is currently NPO for a JIMBO/cardioversion * Fasting BSG continues to fall -> day #3 of Lantus 40 units. I'm hesitant to continue with current dose of Lantus, especially with NPO status this AM. Will adjust Lantus scale to only provide this higher dose if fasting elevated. 05/19/18 * Blood sugars mostly at goal, but did rise 50 points overnight so I did increase basal slightly this morning. * Blood sugar is now down to 83mg/dl at lunch, unknown why, no changes at this time. PLAN FOR INPATIENT GLYCEMIC CONTROL: * Continue to hold outpatient oral diabetes medications * Basal insulin - decrease * Lantus 35 units for BSG <220, 40 units for BSG >/=220mg/dl * Bolus insulin - no change * NovoLog per scale ACHS or Q6hrs while NPO * Goal Range: Low 120 mg/dL - High 150 mg/dL * Correction Factor: 25 mg/dL/unit * Nutritional / Prandial insulin per carb ratio of 1 unit per 8 grams CHO consumed
--- NOTE | 2018-05-20 15:05 | Cardiology Follow-Up ---
Subjective General Date of Service: May 20, 2018. Chief Complaint: follow up shortness of breath Pt evaluation today including: conversation w/ patient, physical exam History of Present Illness The patient is a 63 year old female seen in follow up post JIMBO CV this am. Pt tolerated lunch meal. Feels well. Feels better in SR. Allergies Coded Allergies: Amoxicillin (Verified Allergy, Severe, SOB, RASH, 02/21/18) Penicillins (Verified Allergy, Severe, SOB, RASH, 02/21/18) RESPIRATORY DISTRESS & RASH Clarithromycin (Verified Allergy, Unknown, unknown, 02/21/18) Clindamycin (Verified Allergy, Unknown, UNKNOWN, 02/21/18) Fluconazole (Verified Allergy, Unknown, UNKNOWN, 02/21/18) Sulfamethoxazole w/Trimethoprim (Verified Allergy, Unknown, UNKNOWN, ) Codeine (Verified Adverse Reaction, Mild, ITCHING, NAUSEA, 02/21/18) Social History Smoking Status: Current Every Day Smoker Hx Tobacco Use In Past Year?: Yes Hx Alcohol Use - Type And Amou: No Hx Substance Use - Type And Am: No Problem List Medical Problems: (1) Atrial flutter with rapid ventricular response Status: Acute Physical Exam Vital Signs Last Vital Signs Documentation Date Time Temp Pulse Resp B/P (MAP) Pulse Ox O2 Delivery O2 Flow Rate FiO2 05/20/18 10:59 36.6 68 20 116/69 (85) 91 Room Air 05/20/18 08:00 6 Physical Exam Constitutional: General Apperance: obese Head: atraumatic Neck: supple Lungs: Auscultation: no wheezing, no rales/crackles, no rhonchi Cardiovascular: Heart Auscultation: RRR, no murmurs, no rubs Abdomen: Inspection & Palpation: soft, no tenderness, guarding & rebound Extremities: pertinent finding (Trace to 1+ lower extremity edema to the ankles and mid tibia) Neurologic: Gait & Station: pertinent finding (No focal deficits) Assessment and Plan Assessment and Plan Impression: 63-year-old female 1. Atrial flutter with rapid ventricular response -s/p JIMBO guided CV 05/20 2. 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 On the EKG performed post CV, the QTC was mildly prolonged in the 480s, with new anterior T wave changes evidence in SR, new compared to prior sinus EKG in . EKG repeated at [address] changes improved, inferior ST changes noted. QTC still mildly prolonged at 488 ms. -Sotalol, new this admission decreased to 80 mg BID. -No angina at present. Continue treatment. Will likely need to proceed with ischemic work up given risk factors and EKG abnormalities after 3 weeks of uninterrupted anticoagulation. Laboratory Results Last 24 Hours Test 05/19/18 16:19 05/19/18 20:31 05/20/18 06:20 05/20/18 07:05 Bedside Glucose 80 mg/dl 172 mg/dl 99 mg/dl White Blood Count 8.74 K/uL Red Blood Count 5.27 M/uL Hemoglobin 16.4 g/dL Hematocrit 51.7 % Mean Corpuscular Volume 98.1 fL Mean Corpuscular Hemoglobin 31.1 pg Mean Corpuscular Hemoglobin Concent 31.7 g/dl RDW Standard Deviation 51.8 fL RDW Coefficient of Variation 14.5 % Platelet Count 180 K/uL Mean Platelet Volume 10.7 fL Prothrombin Time 11.1 SECONDS Prothromb Time International Ratio 1.1 Activated Partial Thromboplast Time 25.5 SECONDS Partial Thromboplastin Ratio 1.0 Sodium Level 140 mmol/L Potassium Level 4.9 mmol/L Chloride Level 103 mmol/L Carbon Dioxide Level 34 mmol/L Anion Gap 3.0 mmol/L Blood Urea Nitrogen 21 mg/dl Creatinine 0.97 mg/dl Est Creatinine Clear Calc Drug Dose 74.5 ml/min Estimated GFR () 72.0 Estimated GFR (Non- 62.2 BUN/Creatinine Ratio 21.8 Random Glucose 105 mg/dl Calcium Level 8.5 mg/dl Test 05/20/18 11:25 Bedside Glucose 158 mg/dl
--- NOTE | 2018-05-20 16:37 | Hospitalist Progress Note ---
Hospitalist Progress Note Date of Service May 20, 2018. Subjective Pt evaluation today including: conversation w/ patient, conversation w/ family , physical exam, chart review, lab review, review of studies, conversation w/ retirement sales consultant, review of inpatient medication list Pain: None PO Intake: Tolerating PO diet Voiding: no voiding problems Patient seen after cardioversion this morning. She reports feeling well and states her palpitations have now resolved. She denies any chest pain or shortness of breath. The patient denies fevers, chills, sweats, chest pain, palpitations, claudication, cough, wheezing, shortness of breath, nausea, vomiting, abdominal pain, dysuria, hematuria, urinary retention, paralysis, weakness, numbness and tingling. Additional Comments: See HPI for pertinent positives and negatives. All other systems reviewed and negative. Objective Vital Signs Date Time Temp Pulse Resp B/P (MAP) Pulse Ox O2 Delivery O2 Flow Rate FiO2 05/20/18 15:36 36.5 71 19 138/85 (102) 90 Room Air 05/20/18 10:59 36.6 68 20 116/69 (85) 91 Room Air 05/20/18 09:17 120/83 (95) 05/20/18 08:47 106/69 (81) 05/20/18 08:37 36.5 68 18 109/75 (86) 91 05/20/18 08:20 71 18 101/65 (77) 92 Room Air 05/20/18 08:10 65 18 96/66 (76) 92 Room Air 05/20/18 08:00 67 18 99/66 (77) 95 Nasal Cannula 6 05/20/18 07:57 66 20 102/64 95 Nasal Cannula 6 05/20/18 07:52 133 109/87 88 Ambu-Bag 15 05/20/18 07:47 124 20 122/87 98 Nasal Cannula 6 05/20/18 07:25 36.7 128 20 121/77 (92) 95 Room Air 05/20/18 07:00 Room Air 05/20/18 02:40 36.7 123 22 113/78 (90) 93 Room Air 05/19/18 23:35 36.6 122 18 108/70 (83) 93 Room Air 05/19/18 20:00 Room Air 05/19/18 19:32 36.8 113 18 118/83 (95) 99 Room Air Physical Exam Notes: General appearance: +Morbidly obese. Well-developed, well-nourished, no apparent distress Head: Normocephalic, atraumatic Eyes: Normal inspection, PERRL, EOMI ENT: Normal ENT inspection, hearing grossly normal, pharynx normal Neck: Supple, no JVD, trachea midline Respiratory/Chest: Lungs clear to auscultation, normal breath sounds, no respiratory distress Cardiovascular: Regular rate & rhythm, no gallop, no murmur Abdomen/GI: Normal bowel sounds, non-tender, soft Extremities/Musculoskeletal: Normal inspection, no calf tenderness, no pedal edema Neurological/Psych: Alert, normal mood/affect, oriented x 3 Skin: Normal color, warm/dry, no rash Laboratory Results Last 24 Hours Test 05/19/18 16:19 05/19/18 20:31 05/20/18 06:20 05/20/18 07:05 Bedside Glucose 80 mg/dl 172 mg/dl 99 mg/dl White Blood Count 8.74 K/uL Red Blood Count 5.27 M/uL Hemoglobin 16.4 g/dL Hematocrit 51.7 % Mean Corpuscular Volume 98.1 fL Mean Corpuscular Hemoglobin 31.1 pg Mean Corpuscular Hemoglobin Concent 31.7 g/dl RDW Standard Deviation 51.8 fL RDW Coefficient of Variation 14.5 % Platelet Count 180 K/uL Mean Platelet Volume 10.7 fL Prothrombin Time 11.1 SECONDS Prothromb Time International Ratio 1.1 Activated Partial Thromboplast Time 25.5 SECONDS Partial Thromboplastin Ratio 1.0 Sodium Level 140 mmol/L Potassium Level 4.9 mmol/L Chloride Level 103 mmol/L Carbon Dioxide Level 34 mmol/L Anion Gap 3.0 mmol/L Blood Urea Nitrogen 21 mg/dl Creatinine 0.97 mg/dl Est Creatinine Clear Calc Drug Dose 74.5 ml/min Estimated GFR () 72.0 Estimated GFR (Non- 62.2 BUN/Creatinine Ratio 21.8 Random Glucose 105 mg/dl Calcium Level 8.5 mg/dl Test 05/20/18 11:25 Bedside Glucose 158 mg/dl Diagnostic Results Electricial Cardioversion Rpt Date of Service: 05/20/18 Electrical Cardioversion Rprt Procedure Date May 20, 2018. Pre-Procedure Diagnosis Symptomatic atrial flutter with rapid ventricular response Post-Procedure Diagnosis The left atrial appendage thrombus, successful conversion to sinus rhythm Procedure(s) Performed Transesophageal echocardiogram guided direct current cardioversion Piano Stringer Alexis Edwards DO Grout Machine Tender(s) Cheryl Sanchez ,registered steel wool machine operator Estimated Blood Loss None Preliminary Findings After informed consent was obtained and a timeout was performed the patient was sedated with the assistance of Dr. Trinh of anesthesia receiving 90 mg of IV propofol. The transesophageal echocardiogram probe was passed into the midesophagus without difficulty. No pericardial effusion was present. The left atrium is moderately enlarged. A biplane view of the left atrial appendage was obtained with no evidence of left atrial thrombus or left atrial appendage thrombus. Although the images that were captured and the echo machine somewhat incompletely illustrate the left atrial appendage, the appendage was viewed in the biplane view adequately in real-time. The patient became hypoxic with pulse oximetry down to the 80% range, and therefore the transesophageal echocardiogram portion of the study was discontinued. The patient's respiratory status stabilized by Positioning her completely supine and utilizing a jaw thrust maneuver and bag valve mask with normalization of her pulse ox. The patient then underwent synchronized direct current cardioversion receiving a single dose of 300 J of biphasic energy with successful conversion to sinus rhythm. Post procedure, the patient was awake and conversant with no focal neurologic deficits. Postprocedure EKG revealed sinus rhythm at 71 bpm with occasional PVCs. The corrected QT interval was mildly prolonged at 484 ms. T-wave inversions are noted in the anterior leads V2 and V3. Recommendations 1. Reduce sotalol dose to 80 mg twice daily. 2. Continue Eliquis for stroke prophylaxis 3. Plan to review her sinus rhythm EKG comparison to past historical EKGs, I anticipate that there is not a prior EKG with her in sinus rhythm available in her outpatient record. -Post procedure two parasternal images were obtained in the parasternal long and short axis revealing grossly normal biventricular function on limited views post cardioversion. Based on blood work today including elevated CO2 and sodium level, will hold off on further diuretic therapy for now. Anesthesia Propofol 90 mg Complication(s) Transient hypoxia requiring bag valve mask support. Disposition Recover in the post cardiac catheterization recovery suite, then transfer back to PCU Assessment and Plan 63 y/o female with a history of HTN, HLD, COPD, DM II, atypical ductal hyperplasia of breast, and BPPV who was admitted on 05/14 with new onset afib with RVR. A.fib/flutter with RVR--resolved - Admit to telemetry. Pt in aflutter overnight with HR in 120s but following cardioversion has been sinus with HR 70s. - S/p JIMBO guided cardioversion today - Cardiology consulted, appreciate recs: Spoke with Dr. Edwards. Pt has new T wave inversions following cardioversion, would recommend ischemic work up but in 3 weeks when safer to hold anticoagulation. Metoprolol d/c'd. Pt with QTc prolongation in 480s. Sotalol decreased. Would hold further diuresis as well and watch tonight on tele. - D/c metoprolol - Sotalol, started this admission, decreased to 80 mg PO BID - Continue Eliquis - Echo with normal EF, no wma - Trop negative x2 - TSH wnl Acute diastolic CHF--improving - Patient initially with congestion on chest x ray, sob and lower extremity edema - IV Lasix d/c'd per cardio - UO 3300 cc, net balance -2260 cc on 05/19. 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
[2018-05-21 00:02] VITALS: BP 107/70; PULSE 65; TEMP 36.8; O2SAT 92
[2018-05-21] MEDS: APIXABAN 5 MG TAB PO SCH (02:41)
[2018-05-21 03:15] VITALS: BP 106/88; PULSE 69; TEMP 36.4; O2SAT 90
[2018-05-21 07:04] VITALS: BP 113/71; PULSE 71; TEMP 36.5; O2SAT 90
[2018-05-21 07:18] LABS: CALCIUM 8.4 mg/dl (8.5-10.1); CREATININE 0.87 mg/dl (0.60-1.20); POTASSIUM 4.2 mmol/L (3.5-5.1)
[2018-05-21 08:09] VITALS: BP 118/72; PULSE 67
[2018-05-21] MEDS: SIMVASTATIN 80 MG TAB PO SCH (08:11)
[2018-05-21] MEDS: MAGNESIUM CHLORIDE 64MG DELAYED REL TAB PO SCH (08:11)
[2018-05-21] MEDS: ASPIRIN 81 MG ECTAB PO SCH (08:11)
[2018-05-21] MEDS: EZETIMIBE 10MG TAB PO SCH (08:11)
[2018-05-21] MEDS: TAMOXIFEN CITRATE 10 MG TAB PO SCH (08:12)
[2018-05-21] MEDS: INSULIN GLARGINE SOLOSTAR 100 UNITS/ML 3 ML PEN SC SCH (08:13)
[2018-05-21] MEDS: INSULIN ASPART 100 UNITS/ML 3 ML PEN SQ SCH ×2 (08:13→11:59)
[2018-05-21] MEDS ORDERED: METOPROLOL TARTRATE 25 MG TAB PO SCH (09:00)
--- NOTE | 2018-05-21 10:16 | Anesthesiology Progress Note ---
Anesthesia Post Op Note Date & Time May 21, 2018 at 10:16 Vital Signs Pain Intensity: 0.0 Vital Signs Past 12 Hours Date Time Temp Pulse Resp B/P (MAP) Pulse Ox O2 Delivery O2 Flow Rate FiO2 05/21/18 08:09 67 118/72 (87) 05/21/18 08:00 Room Air 05/21/18 07:04 36.5 71 18 113/71 (85) 90 Room Air 05/21/18 03:15 36.4 69 18 106/88 (94) 90 Room Air 05/21/18 00:02 36.8 65 16 107/70 (82) 92 Room Air Notes Mental Status: alert / awake / arousable, participated in evaluation Pt Amnestic to Procedure: Yes Nausea / Vomiting: adequately controlled Pain: adequately controlled Airway Patency, RR, SpO2: stable & adequate BP & HR: stable & adequate Hydration State: stable & adequate Anesthetic Complications: no major complications apparent
--- NOTE | 2018-05-21 10:49 | Cardiology Follow-Up ---
Subjective General Date of Service: May 21, 2018. Chief Complaint: follow up shortness of breath Pt evaluation today including: conversation w/ patient, physical exam History of Present Illness The patient is a 63 year old female seen in follow up. Patient feels well. Denies chest pain or shortness of breath. Remains in SR post CV yesterday with rates of 50-70 bpm. Allergies Coded Allergies: Amoxicillin (Verified Allergy, Severe, SOB, RASH, 02/21/18) Penicillins (Verified Allergy, Severe, SOB, RASH, 02/21/18) RESPIRATORY DISTRESS & RASH Clarithromycin (Verified Allergy, Unknown, unknown, 02/21/18) Clindamycin (Verified Allergy, Unknown, UNKNOWN, 02/21/18) Fluconazole (Verified Allergy, Unknown, UNKNOWN, 02/21/18) Sulfamethoxazole w/Trimethoprim (Verified Allergy, Unknown, UNKNOWN, ) Codeine (Verified Adverse Reaction, Mild, ITCHING, NAUSEA, 02/21/18) Social History Smoking Status: Current Every Day Smoker Hx Tobacco Use In Past Year?: Yes Hx Alcohol Use - Type And Amou: No Hx Substance Use - Type And Am: No Problem List Medical Problems: (1) Atrial flutter with rapid ventricular response Status: Acute Physical Exam Vital Signs Last Vital Signs Documentation Date Time Temp Pulse Resp B/P (MAP) Pulse Ox O2 Delivery O2 Flow Rate FiO2 05/21/18 08:09 67 118/72 (87) 05/21/18 08:00 Room Air 05/21/18 07:04 36.5 18 90 05/20/18 08:00 6 Physical Exam Constitutional: General Apperance: obese Head: atraumatic Neck: supple Lungs: Auscultation: no wheezing, no rales/crackles, no rhonchi Cardiovascular: Heart Auscultation: RRR, no murmurs, no rubs Abdomen: Inspection & Palpation: soft, no tenderness, guarding & rebound Extremities: pertinent finding (Trace to 1+ lower extremity edema to the ankles and mid tibia) Neurologic: Gait & Station: pertinent finding (No focal deficits) Assessment and Plan Assessment and Plan EKG 05/21/18 and reviewed independently SR at 62 bpm. QTc prolong 492 ms. Compared to 05/20/18, the anteroseptal and inferior ST changes have resolved Impression: 63-year-old female 1. Atrial flutter with rapid ventricular response -s/p JIMBO guided CV 05/20 to SR 2. Fluid retention, perhaps due to diastolic dysfunction or perhaps just due to gross dietary nonadherence with sodium intake -Echocardiogram this admission revealed grossly normal LV and RV function without significant valvular abnormality 3. H/o HTN, DM, dyslipidemia 4. Transient abnormality in Anteroseptal ST segments, inferior ST segments post CV, now resolved. Given risk factors EKG changes concerning for underlying ischemic heart disease. Had negative pharm nuclear stress several years ago. 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 Given prolonged QTc , DC sotalol. Discharge on metoprolol tartrate 75 mg BID, up from prior pre hospital dose of 50 mg BID. -pt appears a little volume depleted on labs today. Would reduce irbesartan dose to 150 mg daily at discharge to start tomorrow, down from DISCHARGING MACHINE OPERATOR dose of 300 mg daily. DC on furosemide 20 mg PO every day , start tomorrow, as compared to DISCHARGING MACHINE OPERATOR 40 mg PRN edema. Follow up Dr Dionte Go 06/05/18 at 10:15 am. Resume ASA 81 mg at discharge. Plan for post hospital cardiology reassessment of AFL. Will reassess need/ approach for ischemia work up as outpatient. For now treat medically, would not want to interrupt anticoagulation for at least 4 weeks post cardioversion. Laboratory Results Last 24 Hours Test 05/20/18 11:25 05/20/18 16:34 05/20/18 20:45 05/21/18 06:27 Bedside Glucose 158 mg/dl 225 mg/dl 125 mg/dl Sodium Level 142 mmol/L Potassium Level 4.2 mmol/L Chloride Level 103 mmol/L Carbon Dioxide Level 37 mmol/L Anion Gap 2.0 mmol/L Blood Urea Nitrogen 22 mg/dl Creatinine 0.87 mg/dl Est Creatinine Clear Calc Drug Dose 83.4 ml/min Estimated GFR () 82.2 Estimated GFR (Non- 70.9 BUN/Creatinine Ratio 25.8 Random Glucose 79 mg/dl Calcium Level 8.4 mg/dl Test 05/21/18 07:19 Bedside Glucose 75 mg/dl
--- NOTE | 2018-05-21 10:53 | Pharmacy Progress Note ---
Pharmacy Glycemic Short Note 2 Date of Service May 21, 2018. OUTPATIENT ANTIDIABETIC REGIMEN: * Lantus 42u QAM, Novolog TIDM (usually 15-18 units with meals), MetforminER 500mg BID Test 05/20/18 11:25 05/20/18 16:34 05/20/18 20:45 05/21/18 06:27 Bedside Glucose 158 mg/dl (70-90) 225 mg/dl (70-90) 125 mg/dl (70-90) Random Glucose 79 mg/dl (70-99) Test 05/21/18 07:19 Bedside Glucose 75 mg/dl (70-90) ASSESSMENT: 05/21/18 * Ms. Perkins received 54 units of insulin yesterday * Was NPO for breakfast yesterday but ate lunch and dinner s/p cardioversion * No changes to causes of insulin resistance today * Fasting is on the lower side this AM but I suspect this is due to lower PO intake yesterday and from the higher dose of Lantus a few days ago * 1 postprandial BSG was elevated yesterday but no consistent elevation seen 05/20/18 * Patient received 74 units of insulin yesterday * Is currently NPO for a JIMBO/cardioversion * Fasting BSG continues to fall -> day #3 of Lantus 40 units. I'm hesitant to continue with current dose of Lantus, especially with NPO status this AM. Will adjust Lantus scale to only provide this higher dose if fasting elevated. 05/19/18 * Blood sugars mostly at goal, but did rise 50 points overnight so I did increase basal slightly this morning. * Blood sugar is now down to 83mg/dl at lunch, unknown why, no changes at this time. PLAN FOR INPATIENT GLYCEMIC CONTROL: * Continue to hold outpatient oral diabetes medications * Basal insulin - no change * Lantus 35 units for BSG <220, 40 units for BSG >/=220mg/dl * Bolus insulin - no change * NovoLog per scale ACHS or Q6hrs while NPO * Goal Range: Low 120 mg/dL - High 150 mg/dL * Correction Factor: 25 mg/dL/unit * Nutritional / Prandial insulin per carb ratio of 1 unit per 8 grams CHO consumed Discharge Instructions: * A1c at 8.5% (above goal) * Continue outpatient regimen upon discharge but f/u with outpatient provider for additional education. Per CDE note, seems to be more of an education issue with just guessing how many units to take with meals.
[2018-05-21] MEDS ORDERED: LSX20 PO (12:26)
[2018-05-21] MEDS ORDERED: AVP150 PO (12:26)
[2018-05-21] MEDS ORDERED: SLWMEC PO (12:26)
[2018-05-21] MEDS ORDERED: METO-722 PO (12:26)
[2018-05-21] MEDS ORDERED: APIX1TAB3 PO (12:26)
[2018-05-21] MEDS ORDERED: APIXABAN 5 MG TAB PO SCH (12:30)
--- NOTE | 2018-05-21 12:36 | Discharge Instructions ---
Discharge Instructions Date of Service May 21, 2018. Admission Reason for Admission: Atrial Fibrillation With Rvr Discharge Discharge Diagnosis / Problem: Atrial fibrillation with rapid ventricular response Discharge Goals Goal(s): Decrease discomfort, Improve function, Diagnostic testing, Therapeutic intervention Activity Recommendations Activity Limitations: resume your previous activity (as tolerated) . Instructions / Follow-Up Instructions / Follow-Up You were admitted to the hospital with new onset of an irregular hear rhythm called atrial fibrillation. You were also found to have a rapid heart rate. You were initially treated with medications aiming to lower your heart rate, but eventually you underwent a cardioversion with Dr. Edwards which returned you to a regular sinus rhythm. During your hospital stay you were also treated for fluid overload with IV diuretics. You have remained in sinus rhythm since your cardioversion and are now medically stable for discharge. Medications: *You have been started on an anticoagulant (blood thinner) called Eliquis ( apixaban). This is to help prevent clots and reduce your stroke risk, which is increased in those who have atrial fibrillation. Please take Eliquis 5 mg twice a day. Start this TONIGHT. *Your metoprolol tartrate dose has been INCREASED to 75 mg twice a day. Start this TONIGHT. *Your irbesartan dose has been DECREASED to 150 mg daily. Start this TOMORROW. *To help prevent future fluid overload, your diuretic has been changed to now be every day but at a lower dose. Please take Lasix (furosemide) 20 mg every day. Start this TOMORROW. *Please take magnesium chloride 64 mg twice a day. *Continue your other home medications as prescribed. Follow up: *You will be scheduled to follow up with your primary care provider in about 1 week following discharge regarding your hospital stay. *You have already been scheduled to follow up with Dr. Rapp of cardiology at [facility] on June 05 at 10:15 am. Please seek medical attention if you experience fevers, chills, sweats, dizziness/lightheadedness, loss of consciousness, chest pain, shortness of breath, nausea, vomiting, numbness or tingling. Current Hospital Diet Patient's current hospital diet: Diabetes Type 2 Diet Discharge Diet Recommended Diet: AHA Diet (Heart Healthy), Diabetes Type 2 Diet Procedures Procedures Performed: Transesophageal echocardiogram guided cardioversion Pending Studies Studies pending at discharge: no Laboratory Results Hemoglobin A1c Test 05/15/18 12:16 Range/Units Estimated Average Glucose 197 mg/dl Hemoglobin A1c 8.5 H 4.5-5.6 % Lipid Panel Test 05/15/18 12:16 Range/Units Triglycerides Level 73 0-150 mg/dl Cholesterol Level 108 0-200 mg/dl HDL Cholesterol 46 mg/dl Cholesterol/HDL Ratio 2.3 LDL Cholesterol, Calculated 47 mg/dl Medical Emergencies . Who to Call and When: Medical Emergencies: If at any time you feel your situation is an emergency, please call 911 immediately. . Non-Emergent Contact Non-Emergency issues call your: Primary Care Provider, Control Panel Builder Call Non-Emergent contact if: you have a fever, you have any medication questions . Past History Medical & Surgical History: (1) Atrial flutter with rapid ventricular response . "Provider Documentation" section prepared by Elise Burks. .
[2018-05-21 12:50] VITALS: BP 118/72; PULSE 67; TEMP 36.5; O2SAT 90
[2018-05-21] MEDS ORDERED: ADENOSINE IV SOLN 3 MG/ML 2 ML VIAL IV ONE (13:10)
[2018-05-21] MEDS ORDERED: [UNRECOGNIZED DRUG - SUPPLY] IV ONE (13:10)
--- NOTE | 2018-05-21 15:19 | TEE ---
*NOTICE TO RECEIVING LIBERTARIAN AGENCY This information is strictly Confidential and protected under [place] law. [place] law prohibits you from making any further disclosure of this information unless further disclosure is expressly permitted by the written consent of the person to whom it pertains or is authorized by law. A general authorization for the release of medical or other information is not sufficient for this purpose. Hospital accepts no responsibility if the information is made available to any other person, INCLUDING THE PATIENT. Interpretation Summary * Name: MARY INGRAM Study Date: 05/20/2018 07:19 AM BP: 122/87 mmHg * Patient Location: C.2T\S\S242\S\1 HR: 124 * : 1955 (M/d/yyyy) Gender: Female Height: 65 in * Age: 63 yrs Ethnicity: CA Weight: 255 lb * Ordering Physician: Alexis Edwards * Referring Physician: Self, Referred * Performed By: Cheryl Sanchez RDCS * * Reason For Study: JIMBO guided CV * BSA: 2.2 m2 * -- Conclusions -- * A focused, limited, 2D transesophageal echocardiogram study was performed for guidance of direct-current cardioversion. * Limited views were obtained. * No left atrial mass or thrombus visualized. * No thrombus is detected in the left atrial appendage. * A complete transesophageal echocardiogram study was not performed as the patient developed hypoxia requiring termination of transesophageal echocardiogram, and stabilization of her airway with transient bag valve mask support at which time her oxygenation normalized. * The left atrial appendage was visualized adequately to exclude the presence of thrombus. * Direct-current cardioversion was therefore performed as reported separately. * Post cardioversion, a parasternal long axis image and short axis image were obtained with the patient in sinus rhythm having converted from atrial flutter at 120 bpm to sinus rhythm at 60 bpm. Post cardioversion, the left ventricular ejection fraction was normal on limited assessment. Procedure Details * JIMBO Probe #1 utilized for procedure. * The study was performed in Cardiac Catheterization Lab. * Time out was conducted by the physician, nurse, and glass technician with positive identification of patient and procedure. * Informed consent for Transesophageal Echocardiogram was obtained prior to the procedure. * An intravenous line was placed. A topical anesthetic agent was used for oropharangeal anesthesia. A bite block was inserted. * Sedation performed by the anesthesia department. * The patient's vital signs, including blood pressure, heart rate, pulse oximetry and cardiac rhythm were monitored throughout the procedure . * A multifrequency, multiplane transesopheageal echocardiographic endoscope was inserted and manipulated in the standard fashion to achieve multiplane views. * The transesophageal probe was passed without difficulty. * Limited views were obtained. * 90 Propofol Start time 7:47am End time 7:55am Left Ventricle * There is normal left ventricular wall thickness. Atria * The left atrium is moderately dilated. * No left atrial mass or thrombus visualized. * No thrombus is detected in the left atrial appendage. Mitral Valve * Mitral stenosis is absent. * Mitral regurgitation was not assessed. Tricuspid Valve * Not visualized. Tricuspid regurgitation and tricuspid stenosis were not assessed. Aortic Valve * Aortic stenosis is absent. * Aortic valve regurgitation was not assessed Great Vessels * The aortic root is normal size. Pericardium * There is no pericardial effusion.
--- NOTE | 2018-05-21 16:40 | Discharge Summary ---
Discharge Summary Date of Service May 21, 2018. Discharge Summary Admission Date: May 14, 2018 at 18:53 Discharge Date: May 21, 2018 Discharge Disposition: Home Principal Diagnosis: New onset atrial fibrillation with RVR Problems/Secondary Diagnoses: Acute diastolic CHF, HTN, HLD, COPD, DM II, atypical ductal hyperplasia of breast, BPPV Immunizations: Have You Had Influenza Vaccine: Yes History of Tetanus Vaccine?: Yes History of Pneumococcal: Yes History of Hepatitis B Vaccine: No Procedures: Electricial Cardioversion Rpt Date of Service: 05/20/18 Electrical Cardioversion Rprt Procedure Date May 20, 2018. Pre-Procedure Diagnosis Symptomatic atrial flutter with rapid ventricular response Post-Procedure Diagnosis The left atrial appendage thrombus, successful conversion to sinus rhythm Procedure(s) Performed Transesophageal echocardiogram guided direct current cardioversion Hearing Therapist Alexis Edwards DO Substation Engineer(s) Cheryl Sanchez ,registered news videotape editor Estimated Blood Loss None Preliminary Findings After informed consent was obtained and a timeout was performed the patient was sedated with the assistance of Dr. Trinh of anesthesia receiving 90 mg of IV propofol. The transesophageal echocardiogram probe was passed into the midesophagus without difficulty. No pericardial effusion was present. The left atrium is moderately enlarged. A biplane view of the left atrial appendage was obtained with no evidence of left atrial thrombus or left atrial appendage thrombus. Although the images that were captured and the echo machine somewhat incompletely illustrate the left atrial appendage, the appendage was viewed in the biplane view adequately in real-time. The patient became hypoxic with pulse oximetry down to the 80% range, and therefore the transesophageal echocardiogram portion of the study was discontinued. The patient's respiratory status stabilized by Positioning her completely supine and utilizing a jaw thrust maneuver and bag valve mask with normalization of her pulse ox. The patient then underwent synchronized direct current cardioversion receiving a single dose of 300 J of biphasic energy with successful conversion to sinus rhythm. Post procedure, the patient was awake and conversant with no focal neurologic deficits. Postprocedure EKG revealed sinus rhythm at 71 bpm with occasional PVCs. The corrected QT interval was mildly prolonged at 484 ms. T-wave inversions are noted in the anterior leads V2 and V3. Recommendations 1. Reduce sotalol dose to 80 mg twice daily. 2. Continue Eliquis for stroke prophylaxis 3. Plan to review her sinus rhythm EKG comparison to past historical EKGs, I anticipate that there is not a prior EKG with her in sinus rhythm available in her outpatient record. -Post procedure two parasternal images were obtained in the parasternal long and short axis revealing grossly normal biventricular function on limited views post cardioversion. Based on blood work today including elevated CO2 and sodium level, will hold off on further diuretic therapy for now. Anesthesia Propofol 90 mg Complication(s) Transient hypoxia requiring bag valve mask support. Disposition Recover in the post cardiac catheterization recovery suite, then transfer back to PCU Echocardiogram: * -- Conclusions -- * A focused, limited, 2D transesophageal echocardiogram study was performed for guidance of direct-current cardioversion. * Limited views were obtained. * No left atrial mass or thrombus visualized. * No thrombus is detected in the left atrial appendage. * A complete transesophageal echocardiogram study was not performed as the patient developed hypoxia requiring termination of transesophageal echocardiogram, and stabilization of her airway with transient bag valve mask support at which time her oxygenation normalized. * The left atrial appendage was visualized adequately to exclude the presence of thrombus. * Direct-current cardioversion was therefore performed as reported separately. * Post cardioversion, a parasternal long axis image and short axis image were obtained with the patient in sinus rhythm having converted from atrial flutter at 120 bpm to sinus rhythm at 60 bpm. Post cardioversion, the left ventricular ejection fraction was normal on limited assessment. Consultations: Cardiology Medication Reconciliation New Medications: Furosemide (Furosemide) 20 Mg Tab 20 MG PO DAILY for 30 Days, #30 TABS Apixaban (Eliquis) 5 Mg Tab 5 MG PO Q12H for 30 Days, #60 TAB Take one tablet at 3 pm and one tablet at 3 am every day. Irbesartan (Irbesartan) 150 Mg Tab 150 MG PO DAILY for 30 Days, #30 TAB Magnesium Chloride (Slow-Mag Tab) 64 Mg Tabcr 64 MG PO BID for 30 Days, #60 TABS Metoprolol Tartrate (Metoprolol Tartrate) 75 Mg Tab 75 MG PO BID for 30 Days, #60 TABS Continued Medications: Albuterol Hfa (Ventolin Hfa) 200 Puffs/63698 Mcg Aers 2 PUFFS INH Q6H PRN for Shortness of Breath Aspirin Enteric Coated (Ecotrin Or Generic) 81 Mg Tab 81 MG PO QAM, 0 Refills Ezetimibe (Zetia) 10 Mg Tab 10 MG PO QAM, 0 Refills Insulin Aspart (Novolog) 100 Units/Ml Inj SQ TIDM SLIDING SCALE WITH MEALS, UP TO 15-22 UNITS Insulin Glargine (Lantus) 100 Unit/Ml Inj 42 UNITS SC QAM, VIAL Meclizine HCl (Meclizine HCl) 12.5 Mg Tab 1 TAB PO TID PRN for PRN for 10 Days, #30 TAB Metformin Hcl Er (Glucophage Er) 500 Mg Tab 500 MG PO BID, TAB Ondansetron Hcl (Zofran) 4 Mg Tab 4 MG PO q 4 hrs PRN for Nausea, #20 TAB Simvastatin (Zocor) 80 Mg Tab 80 MG PO QAM Tamoxifen Citrate (Tamoxifen Citrate) 20 Mg Tab 20 MG PO DAILY Discontinued Medications: Furosemide (Lasix) 40 Mg Tab 40 MG PO DAILY PRN for edema Irbesartan (Avapro) 300 Mg Tab 300 MG PO DAILY Metoprolol Tartrate (Lopressor) (Lopressor) 50 Mg Tab 50 MG PO BID, 0 Refills Discharge Exam Patient reports feeling well. She denies any chest pain, palpitations, or shortness of breath and is eager to be discharged. The patient denies fevers, chills, sweats, chest pain, palpitations, claudication, cough, wheezing, shortness of breath, nausea, vomiting, abdominal pain, dysuria, hematuria, urinary retention, paralysis, weakness, numbness and tingling. Constitutional: No fever, No chills, No sweats Eyes: No worsening of vision, No eye pain, No diplopia ENT: No hearing loss, No nasal symptoms, No trouble swallowing Respiratory: No cough, No wheezing, No shortness of breath Cardiovascular: No chest pain, No claudication, No palpitations Abdomen: No pain, No nausea, No vomiting Musculoskeletal: No joint pain, No muscle pain, No swelling Genitourinary - Female: No dysuria, No urinary retention, No hematuria Neurologic: No paralysis, No weakness, No numbness/tingling Integumentary: No rash, No itch, No color change General appearance: +Morbidly obese. Well-developed, well-nourished, no apparent distress Head: Normocephalic, atraumatic Eyes: Normal inspection, PERRL, EOMI ENT: Normal ENT inspection, hearing grossly normal, pharynx normal Neck: Supple, no JVD, trachea midline Respiratory/Chest: Lungs clear to auscultation, normal breath sounds, no respiratory distress Cardiovascular: Regular rate & rhythm, no gallop, no murmur Abdomen/GI: Normal bowel sounds, non-tender, soft Extremities/Musculoskeletal: Normal inspection, no calf tenderness, no pedal edema Neurological/Psych: Alert, normal mood/affect, oriented x 3 Skin: Normal color, warm/dry, no rash Hospital Course 63 y/o female with a history of HTN, HLD, COPD, DM II, atypical ductal hyperplasia of breast, and BPPV who was admitted on 05/14 with new onset afib with RVR. A.fib/flutter with RVR--resolved - Admit to telemetry. Pt in sinus rhythm, rate controlled overnight - S/p JIMBO guided cardioversion 05/20 - Cardiology consulted, appreciate recs: Spoke with Dr. Edwards prior to discharge. Sotalol d/c'd due to QT prolongation and pt's home Lopressor increased instead. Will also decrease irbesartan and recommend pt take Lasix daily. Pt already has outpt cardiology follow up scheduled. Will need ischemic work up as an outpatient after a few weeks of uninterrupted anticoagulation. - EKG with QTc 492 on 05/21 - D/C sotalol - Lopressor restarted at 75 mg PO BID, increased from home dose of 50 mg PO BID - Continue Eliquis - Echo with normal EF, no wma - Trop negative x2 - TSH wnl - Pt placed on slow mag 64 mg PO BID Acute diastolic CHF--improving - Patient initially with congestion on chest x ray, sob and lower extremity edema - IV Lasix d/c'd. Discharge home w/Lasix 20 mg PO qd scheduled rather than 40 prn edema per cardio recs - UO 1400 cc, net balance -555 cc on 05/20. 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 Discharge Instructions Please refer to the electronic Patient Visit Report (Discharge Instructions) for additional information. Follow-Up PCP Cardiology f/u scheduled 06/05 Additional Copies To Jimbo Srivastava M.D.
== END 2018-05-21 13:11 | disposition home or self-care (01) | DRG 308 ==
LOC: C.EDB 16:28 → C.2T 18:53 → ENRESERV 19:03
PROVIDERS: ADMIT Family Medicine; ATTEND Nurse Practitioner Family
PROC: 5A2204Z Restoration of Cardiac Rhythm, Single (ICD-10-PCS; principal; 2018-05-20 07:45)
DX: I48.1 Persistent atrial fibrillation (principal); I50.31 Acute diastolic (congestive) heart failure; Z68.41 Body mass index [BMI] 40.0-44.9, adult; I11.0 Hypertensive heart disease with heart failure; I48.92 Unspecified atrial flutter; I51.3 Intracardiac thrombosis, not elsewhere classified; E11.649 Type 2 diabetes mellitus with hypoglycemia without coma; J44.9 Chronic obstructive pulmonary disease, unspecified; E78.5 Hyperlipidemia, unspecified; H81.10 Benign paroxysmal vertigo, unspecified ear; N60.91 Unspecified benign mammary dysplasia of right breast; E66.01 Morbid (severe) obesity due to excess calories; F17.210 Nicotine dependence, cigarettes, uncomplicated; Z51.81 Encounter for therapeutic drug level monitoring; Z79.899 Other long term (current) drug therapy; Z79.82 Long term (current) use of aspirin; Z79.4 Long term (current) use of insulin; Z86.73 Personal history of transient ischemic attack (TIA), and cerebral infarction without residual deficits; Z88.0 Allergy status to penicillin; Z88.1 Allergy status to other antibiotic agents; Z88.2 Allergy status to sulfonamides; Z88.5 Allergy status to narcotic agent; Z88.3 Allergy status to other anti-infective agents; Z83.3 Family history of diabetes mellitus; Z82.49 Family history of ischemic heart disease and other diseases of the circulatory system

== ENCOUNTER → 2018-05-29 | Outpatient (CLI) | payer OTHER ==
[~2018-05-29] MED LIST changes: +APIX1TAB3 PO; +AVP150 PO; -HYDR-5688 PO; -IRBE-39 PO; -LSX/40 PO; +LSX20 PO; +METO-722 PO; -METO50TA16 PO; +NLV/20 PO; +SLWMEC PO
== END | disposition home or self-care (01) ==
LOC: C.LABBFT 11:09
PROVIDERS: ATTEND Physician Assistant Medical
DX: E83.42 Hypomagnesemia (principal)

== ENCOUNTER 2019-07-20 12:15 | Inpatient (IN) ==
[2019-07-20] MEDS ORDERED: cefTRIAXone SODIUM 2,000 MG/70 ML BAG IV STA (12:50)
[2019-07-20] MEDS ORDERED: SODIUM CHLORIDE 0.9% 500 ML IV SCH (13:00)
--- NOTE | 2019-07-20 13:22 | XRay Report ---
LEFT TIBIA AND FIBULA 2 VIEWS CLINICAL HISTORY: Fall with left morrell pain. FINDINGS: AP and lateral views of the left tibia and fibula are correlated with radiographs of the le ft knee dated 07/12/2019. The skeletal structures are osteopenic. No fracture is seen. The knee and an kle joints are grossly maintained noting arthritic change. There is a knee joint effusion. Soft tissu e edema is present in the calf. Small pretibial phleboliths are observed. IMPRESSION: 1. Soft tissue edema with no acute radiographic evidence of left tibial or fibular fracture. 2. Knee joint effusion. Electronically signed by: Tano Whalen M.D. 07/20/2019 1:21 PM
[2019-07-20 13:38] LABS: Basophils # (auto) 0.01 K/uL (0-0.2); Basophils % (auto) 0.1 %; Eosinophils # (auto) 0.05 K/uL (0-0.5); Eosinophils % (auto) 0.3 %; Hematocrit (blood only) 34.1 % (37-47); Hemoglobin 10.5 g/dL (12.0-16.0); Immature Granulocytes # (auto) 0.06 K/uL (0.00-0.02); Immature Granulocytes % (auto) 0.4 %; Lymphocytes # (auto) 1.94 K/uL (1.2-3.4); Lymphocytes % (auto) 11.6 %; Mean Corpuscular Hemoglobin 28.5 pg (25-34); Mean Corpuscular Hgb Conc 30.8 g/dL (32-36); Mean Corpuscular Volume 92.7 fL (80-100); Mean Platelet Volume 10.3 fL (7.4-10.4); Monocytes # (auto) 0.57 K/uL (0.11-0.59); Monocytes % (auto) 3.4 %; Neutrophils # (auto) 14.06 K/uL (1.4-6.5); Neutrophils % (auto) 84.2 %; Nucleated RBC # (auto) 0.02 K/uL (0-0); Nucleated RBC % (auto) 0.1 %; Platelet Count 294 K/uL (130-400); RDW Coefficient of Variation 15.4 % (11.5-14.5); RDW Standard Deviation 52.4 fL (36.4-46.3); Red Blood Count 3.68 M/uL (4.2-5.4); White Blood Count 16.69 K/uL (4.8-10.8)
[2019-07-20 13:45] LABS: Appearance Urine Clear (Clear); Bilirubin Urine Negative (Negative); Blood Urine Negative (Negative); Color Urine Yellow; Glucose Urine UA Negative (Negative); Ketones Urine Negative (Negative); Leukocyte Esterase Urine Negative (Negative); Nitrite Urine Negative (Negative); Protein Urine Negative (Negative); Specific Gravity Urine 1.015 (1.000-1.030); Urobilinogen Urine Negative (Negative)
--- NOTE | 2019-07-20 13:58 | CT Scan Report ---
CT SCAN OF THE BRAIN WITHOUT IV CONTRAST CLINICAL HISTORY: Fall. COMPARISON STUDY: CT of the brain dated 12/28/2018. TECHNIQUE: Unenhanced axial CT scan of the brain is performed from the vertex to the skull base. A d ose lowering technique was utilized adhering to the principles of ALARA. CT DOSE: 614.27 mGy.cm FINDINGS: Brain parenchyma: There is mild age-related involutional change. Minimal microangiopathic disease is noted. There is no hemorrhage, mass effect, or evidence of acute territorial ischemia by CT criteria. Swartz-white matter differentiation is preserved. No extra-axial fluid collection is seen. Ventricles, sulci, cisterns: Prominent secondary to involutional change. Intracranial vasculature: There is minimal atherosclerotic calcification of the cavernous carotid art eries. Calvarium: The skeletal structures are osteopenic. No depressed calvarial fracture is identified. Sinuses and mastoids: The visualized paranasal sinuses are clear. The mastoid air cells are well pneu matized. Orbits: The bony orbits are grossly intact. IMPRESSION: There is no hemorrhage, mass effect, or evidence of acute territorial ischemia by CT kim castano. Electronically signed by: Tano Whalen M.D. 07/20/2019 1:57 PM
[2019-07-20 13:59] LABS: Alanine Aminotransferase 14 U/L (12-78); Albumin Level 2.9 gm/dl (3.4-5.0); Aspartate Aminotransferase 9 U/L (15-37); BUN Creatinine Ratio 21.9 (10-20); Blood Urea Nitrogen 42 mg/dl (7-18); Calcium 8.5 mg/dl (8.5-10.1); Carbon Dioxide 29 mmol/L (21-32); Chloride 104 mmol/L (98-107); Est GFR (African American) 31.1; Est GFR (Non-African American) 26.9; Glucose 109 mg/dl (70-99); Potassium 4.7 mmol/L (3.5-5.1); Sodium 139 mmol/L (136-145)
[2019-07-20 14:02] LABS: Albumin Globulin Ratio 0.7 (0.9-2); Alkaline Phosphatase 76 U/L (45-117); Bilirubin,Total 1.1 mg/dl (0.2-1); Globulin 4.2 gm/dl (2.5-4.0); Total Protein 7.1 gm/dl (6.4-8.2)
--- NOTE | 2019-07-20 14:15 | Ultrasound Report ---
ULTRASOUND LEFT LOWER EXTREMITY VENOUS CLINICAL HISTORY: Left leg swelling. COMPARISON STUDY: Left lower extremity venous ultrasound dated 11/10/2016. TECHNIQUE: Real-time, grayscale, and color Doppler sonography of the deep veins of the left lower ext remity was performed from the inguinal crease to the calf. Compression and augmentation were utilized . FINDINGS: There is no sonographic evidence of deep venous thrombosis identified in the left lower ext remity. The common femoral, superficial femoral, and popliteal veins are patent and normally compress ible. The greater saphenous vein and the profunda femoris vein at the junction with the common femora l vein are clear. The visualized calf veins are patent. IMPRESSION: There is no sonographic evidence of deep venous thrombosis identified in the left lower e xtremity. Electronically signed by: Tano Whalen M.D. 07/20/2019 2:13 PM
--- NOTE | 2019-07-20 16:25 | History & Physical Report ---
Date of Service July 20, 2019 Assessment & Plan (1) Cellulitis: - LLE cellulitis noted on admission; possibly related to recent fall leading to open wounds on LLE. - Leukocytosis noted on labs; has been afebrile, normotensive. - Tib/fib XR showed soft tissue edema, neg for fracture following fall. - Doppler of LLE negative for DVT. - Continue Ceftriaxone 2 gm IV for empiric coverage; MRSA swab pending -- consider addition of Vanco vs. Dapto if no improvement with single agent therapy or if MRSA swab is positive. - Elevate LLE as tolerated in setting of significant edema. (2) Fall: - Has had 2 falls over the last two weeks - likely related to left knee pain; no indication for cardiac work up. - Will need PT/OT ordered after cellulitis and associated pain/edema has improved. (3) Leukocytosis: - In setting of LLE cellulitis; continue to monitor CBC daily. (4) PETE (acute kidney injury): - Creatinine increased to 1.93, baseline ~1.1-1.2. - Likely pre-renal related to dehydration in setting of elevated BUN/Cr ratio. - Received 500 cc bolus in ED; hold further fluids in setting of +1-2 bilat LE pitting edema and h/o CHF. - Hold nephrotoxic meds, including Torsemide, Irbesartan, Aldactone, Metformin. - Monitor renal function daily. (5) Stage III chronic kidney disease: - Renally dose all meds. (6) Left knee injury: - Has been evaluated by ortho (Dr. Taylor) as outpatient for acute left knee pain, s/p steroid injection and provided knee brace to wear at home. - Knee XR on 07/12 showed no acute fracture, small left knee joint effusion and moderate to severe left knee osteoarthritis. - Pt. is currently on medical leave from work due to knee pain. - Hold Mobic in setting of ARF; Tylenol and Voltaren gel prn pain. (7) Paroxysmal atrial fibrillation: - Sinus bradycardia noted on admission EKG; admit to [facility] for monitoring x 24 hours. - Continue Eliquis 5 mg BID. - Continue Metoprolol 100 mg BID, Amiodarone 200 mg qAM as prescribed. (8) Diabetes mellitus type 2, uncontrolled: - Hgb A1C was 10.3 in May 2019. - Continue Lantus 50 units qAM with SSI coverage. - Holding home Metformin. - May benefit from nurse educator consult. (9) Dyslipidemia: - Continue ASA and statin as prescribed. (10) COPD (chronic obstructive pulmonary disease): - No evidence of acute exacerbation. - Continue Albuterol prn. (11) Chronic diastolic CHF (congestive heart failure): - Most recent TTE in August 2018 showed EF 55-60%, left atrium bord shiv dilated. - Currently appears well compensated; does have +1-2 bilat LE pitting edema but pt. reports this is chronic for her. - Monitor net I/Os and daily weights. - Holding home Torsemide, Aldactone and Irbesartan in setting of ARF. - Continue beta lisa as prescribed. (12) HTN (hypertension): - Continue Metoprolol as prescribed. - Holding Irbesartan, Aldactone, Torsemide in setting of ARF. (13) Hypothyroid: - Continue Synthroid 50 mcg daily. - TSH was 3.1 in December 2018. (14) Anemia: - Hgb was decreased to 10.5 on admission, baseline hgb is 13-15. - Will continue to monitor, consider further work up. (15) Obesity: - Encourage weight loss and exercise. (16) DVT prophylaxis: - SCDs; Heparin BID. Dispo: Med/surg with tele for treatment of LLE cellulitis. DNR/DNI - confirmed with patient at bedside. History of Present Illness Chief Complaint: Left leg redness and swelling Primary Care Provider: Jimbo Srivastava MD Ms. Perkins is a 64 year old female with past medical history of paroxysmal A. fib, COPD, degenerative disc disease, type II DM, chronic diastolic CHF, HLD, HTN, hypothyroidism, obesity, spinal stenosis who presented to the ER with left leg redness, pain and edema. Pt. has had acute issues with her left knee over the last few weeks -- she is currently on medical leave due to left knee pain. She has been evaluated by urgent care along with orthopedics (Dr. Taylor). Pt. reports she fell down the stairs in her home on July 10, 2019. Fall was related to instability with walking along with left knee pain; denies acute injuries during fall. She was evaluated by orthopedics (Dr. Taylor) last week; she had a steroid injection in her knee and was provided a brace to wear at home. Knee pain was stable over the last week. She fell last evening around 4 pm at her home -- reports she "turned a corner too sharp". Pt. primarily landed on her left side. Denies chest pain, SOB, dizziness leading to fall; denies loss of consciousness after fall. She woke up this morning with left leg redness, pain and swelling extending from her knee distally to the foot. Pt. had chills overnight and low grade fevers. Currently denies chest pain, SOB, URI symptoms, abd pain, dysuria or hematuria, constipation or diarrhea. ER course: Tib/fib XR was negative, did show soft tissue edema. Head CT was negative. Doppler of left lower extremity was also negative. Pt. had a leukocytosis on labs with acute renal failure. Received 500 cc bolus and Ceftriaxone 2 gm IV. Will admit for further treatment of LLE cellulitis. Allergies Allergy/AdvReac Type Severity Reaction Status Date / Time amoxicillin Allergy Severe SOB, RASH Verified 07/20/19 13:04 Penicillins Allergy Severe SOB, RASH Verified 07/20/19 13:04 clarithromycin Allergy Intermediate "feels Verified 07/20/19 13:04 like flying high" clindamycin Allergy Intermediate "feels Verified 07/20/19 13:04 like flying high" fluconazole Allergy Intermediate "feels Verified 07/20/19 13:04 like flying high" sulfamethoxazole Allergy Intermediate "feels Verified 07/20/19 13:04 like flying high" trimethoprim Allergy Intermediate "feels Verified 07/20/19 13:04 like flying high" Bactrim Allergy Unknown UNKNOWN Verified 02/21/18 10:32 codeine AdvReac Mild ITCHING, Verified 07/20/19 13:04 NAUSEA Home Medications Home Medications Medication Instructions Recorded Confirmed Type aspirin [Aspirin Low Dose] 81 mg PO QAM #0 12/28/11 07/24/19 History ezetimibe 10 mg PO QAM #0 12/28/11 07/24/19 History meclizine 12.5 mg PO TID PRN 10 Days #30 tab 09/26/16 07/24/19 History Lantus Solostar U-100 Insulin 45 - 50 units SUBCUT QAM #0 vial 01/28/18 07/24/19 History metformin 500 mg PO BID #0 tab 01/28/18 07/24/19 History apixaban 5 mg PO Q12H 09/04/18 07/24/19 History magnesium chloride 64 mg PO BID 09/04/18 07/24/19 History metoprolol tartrate 100 mg PO BID 09/04/18 07/24/19 History amiodarone 200 mg tablet 200 mg PO QAM tab 06/05/19 07/24/19 History albuterol sulfate HFA 90 2 puff INHALATION Q6H PRN #18 gm 06/12/19 07/24/19 Rx mcg/actuation aerosol inhaler Novolog U-100 Insulin aspart 1 sliding scale dose SUBCUT TIDM 06/19/19 07/24/19 History atorvastatin [Lipitor] 40 mg PO QAM 06/19/19 07/24/19 History irbesartan 300 mg PO QAM 06/19/19 07/24/19 History levothyroxine 50 mcg PO QAM 06/19/19 07/24/19 History spironolactone 25 mg PO QAM 06/19/19 07/24/19 History torsemide 20 mg PO QAM 06/19/19 07/24/19 History cyanocobalamin (vitamin B-12) 1,000 mcg PO DAILY 07/20/19 07/24/19 History [Vitamin B-12] vitamin E 1,000 unit PO DAILY 07/20/19 07/24/19 History Past Med/Surg History Medical History Atrial fibrillation (Acute) follows with Dr. Rapp---on eliquis Atrial flutter hx of Chronic obstructive pulmonary disease inhaler prn Degenerative disc disease Diabetes mellitus, type 2 Diastolic CHF Hyperlipidemia Hypertension Hypothyroidism Nausea and vomiting after administration of anesthetic agent Obesity On anticoagulant therapy eliquis daily Osteoarthritis Spinal stenosis Surgical History History of cardioversion x2 History of carpal tunnel surgery of left wrist History of lumpectomy of right breast benign History of tooth extraction most teeth removed--full upper denture/partial lower History of total hysterectomy with bilateral salpingo-oophorectomy (BSO) Family History Sister Family history of reaction to anesthesia nausea/vomiting Hypothyroidism Father Family history of reaction to anesthesia nausea/vomiting Family hx colonic polyps Hypertension Mother Diabetes Hypertension Social History Preferred Language: Setswana Communication Ability: Effective Healthcare Analyst Required: No Beliefs That Will Affect Care: None Current Living Situation: Family Feels Safe at Home: Yes Smoking Status: Never smoker Tobacco Type: e-cigarettes ; Second Hand Exposure: No ; Hx Alcohol Use: No Hx Substance Use: No Review of Systems Review of Systems: All systems reviewed & are unremarkable except as noted in HPI & below Constitutional: + fever, + chills, + fatigue and + weakness; no anorexia Respiratory: no cough, no dyspnea, no dyspnea on exertion and no wheezing Cardiovascular: + edema; no chest pain, no palpitations, no lightheadedness and no syncope Gastrointestinal: no abdominal pain, no nausea, no vomiting, no constipation and no diarrhea/loose stools Genitourinary: no dysuria, no difficulty urinating, no urinary frequency and no hematuria Musculoskeletal: + joint pain (Left knee pain) and + swelling; no back pain Integumentary: + erythema; no non-healing lesions, no skin ulcer and no wounds Neurologic: no gait abnormality Physical Exam Physical Exam: General: Resting comfortably HEENT: NC/AT; PERRLA with EOMI; [place] conjunctiva, MMM. No erythema of posterior pharynx Neck: Supple and nontender Cardiac: Bradycardia. Lungs: CTA bilaterally Abdomen: Bowel normoactive X 4; Nontender to palpation Rectal: Deferred : Deferred Back: NO spinous tenderness Extremities: Warm. +1-2 bilat LE pitting edema. Diffuse erythema of LLE extending from knee distally -- warm and tender to palpation. Does have healing laceration on left inner heel. Neuro: No focal weakness Skin: See above Results & Data Vital Signs (Past 12 Hours) Vital Signs Temp Pulse Pulse Resp BP BP Pulse Ox 07/20/19 15:30 57 L 18 115/58 L 98 07/20/19 15:15 58 L 20 119/60 97 07/20/19 15:00 58 L 20 122/85 96 07/20/19 13:48 95 07/20/19 13:30 58 L 19 127/76 95 07/20/19 12:17 36.7 C 58 L 20 104/60 97 Laboratory Results 07/20/19 07/20/19 07/20/19 Range/Units 13:23 13:22 13:22 WBC 16.69 H (4.8-10.8) K/uL RBC 3.68 L (4.2-5.4) M/uL Hgb 10.5 L (12.0-16.0) g/dL Hct 34.1 L (37-47) % MCV 92.7 (80-100) fL MCH 28.5 (25-34) pg MCHC 30.8 L (32-36) g/dL RDW Std Deviation 52.4 H (36.4-46.3) fL RDW Coeff of Shannan 15.4 H (11.5-14.5) % Plt Count 294 (130-400) K/uL MPV 10.3 (7.4-10.4) fL Immature Gran % (Auto) 0.4 % Neut % (Auto) 84.2 % Lymph % (Auto) 11.6 % Rowan % (Auto) 3.4 % Eos % (Auto) 0.3 % Baso % (Auto) 0.1 % Immature Gran # (Auto) 0.06 H (0.00-0.02) K/uL Neut # (Auto) 14.06 H (1.4-6.5) K/uL Lymph # (Auto) 1.94 (1.2-3.4) K/uL Rowan # (Auto) 0.57 (0.11-0.59) K/uL Eos # (Auto) 0.05 (0-0.5) K/uL Baso # (Auto) 0.01 (0-0.2) K/uL Absolute Nucleated RBC 0.02 H (0-0) K/uL Nucleated RBC % (auto) 0.1 % Sodium 139 (136-145) mmol/L Potassium 4.7 (3.5-5.1) mmol/L Chloride 104 (98-107) mmol/L Carbon Dioxide 29 (21-32) mmol/L Anion Gap 6.0 (3-11) BUN 42 H (7-18) mg/dl Creatinine 1.93 H (0.6-1.2) mg/dl Est Cr Clr Drug Dosing Not Reportable Est GFR ( Amer) 31.1 Est GFR (Non-Af Amer) 26.9 BUN/Creatinine Ratio 21.9 H (10-20) Glucose 109 H (70-99) mg/dl Calcium 8.5 (8.5-10.1) mg/dl Total Bilirubin 1.1 H (0.2-1) mg/dl AST 9 L (15-37) U/L ALT 14 (12-78) U/L Alkaline Phosphatase 76 (45-117) U/L Total Protein 7.1 (6.4-8.2) gm/dl Albumin 2.9 L (3.4-5.0) gm/dl Globulin 4.2 H (2.5-4.0) gm/dl Albumin/Globulin Ratio 0.7 L (0.9-2) Urine Color Yellow Urine Appearance Clear (Clear) Urine pH 5.0 (4.5-7.5) Ur Specific Shorter 1.015 (1.000-1.030) Urine Protein Negative (Negative) Urine Glucose (UA) Negative (Negative) Urine Ketones Negative (Negative) Urine Blood Negative (Negative) Urine Nitrite Negative (Negative) Urine Bilirubin Negative (Negative) Urine Urobilinogen Negative (Negative) Ur Leukocyte Esterase Negative (Negative) Code Status & VTE Plan Code Status DNR/DNI VTE Prophylaxis Plan VTE Prophylaxis will be ordered: Yes Supervising Physician Co-Signing Physician Notes During my face to face encounter, I performed a history and physical examination on the patient. I answered all of the patient s questions and concerns. Discussed admission plan with patient and APC. Patient will be admitted for cellulitis. Will place appropriate empiric antibiotics. Will monitor progression of erythema. PG Care Time/CCT Total # of Minutes Spent Total Time Spent with Patient: Total time spent is greater than 50% in coordination of care (as documented) at patient's floor/unit and/or counseling patient:
[2019-07-20] MEDS ORDERED: GLUCOSE 10 TABS/TUBE PO PRN (17:48)
[2019-07-20] MEDS ORDERED: GLUCOSE 40% GEL 15 GM TUBE PO PRN (17:48)
[2019-07-20] MEDS ORDERED: MAGNESIUM HYDROXIDE SUSP 30 ML UDC PO PRN (17:48)
[2019-07-20] MEDS ORDERED: POLYETHYLENE (MIRALAX) 17 GM PACK PO PRN (17:48)
[2019-07-20] MEDS ORDERED: CARBOHYDRATES FOR HYPOGLYCEMIA PO PRN (17:48)
[2019-07-20] MEDS ORDERED: ACETAMINOPHEN 325 MG TAB PO PRN (17:48)
[2019-07-20] MEDS ORDERED: GLUCAGON FOR INJ 1 MG VIAL SQ PRN (17:48)
[2019-07-20] MEDS ORDERED: INSULIN ASPART 100 UNITS/ML 3 ML PEN SC SCH (17:48)
[2019-07-20] MEDS ORDERED: DEXTROSE 50% 50 ML SYRINGE IV PRN (17:48)
[2019-07-20] MEDS ORDERED: ONDANSETRON INJ 2 MG/ML 2 ML VIAL IV PRN (17:48)
[2019-07-20] MEDS ORDERED: PATIENT'S HEIGHT AND/OR WEIGHT NEEDED SCH (18:00)
[2019-07-20] MEDS: INSULIN ASPART 100 UNITS/ML 3 ML PEN SC SCH ×2 (18:16→21:09)
--- NOTE | 2019-07-20 19:01 | Emergency Department Note ---
Entered by Gem Hinojosa acting as a scribe for History of Present Illness General Chief complaint: Leg Injury/Pain Stated complaint: LEFT LEG AND FOOT RED AND SWELLING,CHILLS Source: patient Mode of arrival: ambulatory Limitations: no limitations History of Present Illness Onset (ago): day(s) 9 Location: lower extremity (left lower leg) Radiation: non-radiation Pain Consistency: + constant Maximum Pain Intensity: 3 Current Pain Intensity: 3 Relieved By: + none Exacerbated By: + none Associated symptoms: + fever/chills and + other (-abdominal pain, -diarrhea); no cough (or rhinorrhea) and no nausea/vomiting Treatments prior to arrival: none The patient is a 64 year old female with a PMHX of PETE, atrial fibrillation on Eliquis, atrial flutter, CHF and DM who presents to the ED with complaints of left lower leg pain for the past 1 day. She states she fell yesterday around 1600, and hit her left leg on a coffee table during the fall. She was able to put her hands out to break her fall and states she landed on her floor. She did not hit her head or lose consciousness. She rates her discomfort as a 3/10 in severity. Last night around 1800, the leg became red and swollen. The patient notes she also experienced the chills late last night and her temperature was approximately 100 degrees when checked at home. She denies any cough, rhinorrhea, abdominal pain, nausea, vomiting or diarrhea. Home Medications Home Medications Medication Instructions Recorded Confirmed Type aspirin [Aspirin Low Dose] 81 mg PO QAM #0 12/28/11 07/20/19 History ezetimibe 10 mg PO QAM #0 12/28/11 07/20/19 History meclizine 12.5 mg PO TID PRN 10 Days #30 tab 09/26/16 07/20/19 History Lantus Solostar U-100 Insulin 45 - 50 units SUBCUT QAM #0 vial 01/28/18 07/20/19 History metformin 500 mg PO BID #0 tab 01/28/18 07/20/19 History apixaban 5 mg PO Q12H 09/04/18 07/20/19 History magnesium chloride 64 mg PO BID 09/04/18 07/20/19 History metoprolol tartrate 100 mg PO BID 09/04/18 07/20/19 History amiodarone 200 mg tablet 200 mg PO QAM tab 06/05/19 07/20/19 History albuterol sulfate HFA 90 2 puff INHALATION Q6H PRN #18 gm 06/12/19 07/20/19 Rx mcg/actuation aerosol inhaler Novolog U-100 Insulin aspart 1 sliding scale dose SUBCUT TIDM 06/19/19 07/20/19 History atorvastatin [Lipitor] 40 mg PO QAM 06/19/19 07/20/19 History irbesartan 300 mg PO QAM 06/19/19 07/20/19 History levothyroxine 50 mcg PO QAM 06/19/19 07/20/19 History meloxicam 15 mg PO QAM 06/19/19 07/20/19 History spironolactone 25 mg PO QAM 06/19/19 07/20/19 History torsemide 20 mg PO QAM 06/19/19 07/20/19 History cyanocobalamin (vitamin B-12) 1,000 mcg PO DAILY 07/20/19 07/20/19 History [Vitamin B-12] vitamin E 1,000 unit PO DAILY 07/20/19 07/20/19 History Allergies Allergy/AdvReac Type Severity Reaction Status Date / Time amoxicillin Allergy Severe SOB, RASH Verified 07/20/19 13:04 Penicillins Allergy Severe SOB, RASH Verified 07/20/19 13:04 clarithromycin Allergy Intermediate "feels Verified 07/20/19 13:04 like flying high" clindamycin Allergy Intermediate "feels Verified 07/20/19 13:04 like flying high" fluconazole Allergy Intermediate "feels Verified 07/20/19 13:04 like flying high" sulfamethoxazole Allergy Intermediate "feels Verified 07/20/19 13:04 like flying high" trimethoprim Allergy Intermediate "feels Verified 07/20/19 13:04 like flying high" Bactrim Allergy Unknown UNKNOWN Verified 02/21/18 10:32 codeine AdvReac Mild ITCHING, Verified 07/20/19 13:04 NAUSEA Past Med/Surg History Medical History Atrial fibrillation (Acute) follows with Dr. Rapp---on eliquis Atrial flutter hx of Chronic obstructive pulmonary disease inhaler prn Degenerative disc disease Diabetes mellitus, type 2 Diastolic CHF Hyperlipidemia Hypertension Hypothyroidism Nausea and vomiting after administration of anesthetic agent Obesity On anticoagulant therapy eliquis daily Osteoarthritis Spinal stenosis Surgical History History of cardioversion x2 History of carpal tunnel surgery of left wrist History of lumpectomy of right breast benign History of tooth extraction most teeth removed--full upper denture/partial lower History of total hysterectomy with bilateral salpingo-oophorectomy (BSO) Family History Sister Family history of reaction to anesthesia nausea/vomiting Hypothyroidism Father Family history of reaction to anesthesia nausea/vomiting Family hx colonic polyps Hypertension Mother Diabetes Hypertension Social History Preferred Language: Mozambican Communication Ability: Effective Internet Developer Required: No Beliefs That Will Affect Care: None Current Living Situation: Family Other Information That Helps Us Care for You: No Feels Safe at Home: Yes Safety Concerns: Feels Safe At This Time Smoking Status: Never smoker Tobacco Type: e-cigarettes ; Second Hand Exposure: No ; Hx Alcohol Use: No Hx Substance Use: No Review of Systems See HPI for pertinent positives & negatives. and A total of 10 systems reviewed and were otherwise negative Physical Exam Vital Signs Vital Signs - 24 hr 07/20/19 12:17 07/20/19 13:30 07/20/19 13:48 Temperature 36.7 C Temperature Source Oral Sepsis Recent Fever Within 48 Hours No Sepsis New/Unexplained Change in Mental Status No Sepsis Action Taken by Nursing No Action Required Pulse Rate 58 L Pulse Rate [Left Finger] 58 L Respiratory Rate 20 19 Respiratory Effort / Characteristics Non-Labored Respiratory Depth Normal Respiratory Pattern Regular Blood Pressure 104/60 Blood Pressure [Right Arm] 127/76 Blood Pressure Mean 74 Blood Pressure Mean [Right Arm] 93 Pulse Oximetry 97 95 95 Oxygen Delivery Method Room Air Room Air 07/20/19 15:00 07/20/19 15:15 07/20/19 15:30 Temperature Temperature Source Sepsis Recent Fever Within 48 Hours Sepsis New/Unexplained Change in Mental Status Sepsis Action Taken by Nursing Pulse Rate Pulse Rate [Left Finger] 58 L 58 L 57 L Respiratory Rate 20 20 18 Respiratory Effort / Characteristics Non-Labored Non-Labored Non-Labored Respiratory Depth Normal Normal Normal Respiratory Pattern Regular Regular Regular Blood Pressure Blood Pressure [Right Arm] 122/85 119/60 115/58 L Blood Pressure Mean Blood Pressure Mean [Right Arm] 97 79 77 Pulse Oximetry 96 97 98 Oxygen Delivery Method Room Air Room Air Room Air GENERAL: Patient is alert, obese, sitting up in bed with hands behind her head, wearing a hospital gown, well appearing, well nourished, no distress, non-toxic HEAD: normal cephalic, atraumatic EYE EXAM: normal conjunctiva, PERRL and EOM's grossly intact OROPHARYNX: no exudate, no erythema, lips, buccal mucosa, and tongue normal and mucous membranes are moist NECK: supple, no nuchal rigidity, no adenopathy, non-tender CHEST: stable to compression anteriorly and posteriorly LUNGS: clear to auscultation. Normal chest wall mechanics HEART: no murmurs, S1 normal and S2 normal ABDOMEN: abdomen soft, non-tender, normo-active bowel sounds, no masses, no rebound or guarding. PELVIS: stable to compression anteriorly and posteriorly BACK: Back is symmetrical on inspection and there is no deformity, no midline tenderness, no CVA tenderness. UPPER EXTREMITIES: full active and passive range of motion of all joints without tenderness to palpation LOWER EXTREMITIES: Left foot is erythematous and swollen, tracking up to 1 inch below the tibial plateau, 1 inch break in skin on the left medial heel, clear fluid filled vesicle on left posterior calf. NEURO EXAM: Normal sensorium, cranial nerves II-XII grossly intact, normal speech, no gross weakness of arms, no gross weakness of legs. GCS: 15. Course ED COURSE: Vital signs were reviewed and showed the patient is hypotensive. The patients medical record was reviewed The above diagnostic studies were performed and reviewed. ED treatments and interventions as stated above. 1243: The patient was evaluated in room C12. A complete history and physical examination was performed. 1515: Upon reevaluation, the patient is resting comfortably. I discussed my findings with the patient and she understands and agrees with the treatment plan. 1527: I discussed the patients [facility] The patient will be further evaluated. Based on the patients age, coexisting illnesses, exam and lab findings the decision to treat as an inpatient was made. The patient remained stable while under my care. The patient will be evaluated for further management. Administered Medications Insulin Aspart (Novolog Flexpen) 0 units SC ACHS [place] Stop: 08/19/19 17:59 Last Admin: 07/20/19 18:16 Dose: 2 units Documented by: [id number] Cosigned by: [id number] Discontinued Medications Ceftriaxone Sodium (Rocephin) 2,000 mg in 70 mls @ 140 mls/hr IV NOW STA Stop: 07/20/19 13:19 Last Infusion: 07/20/19 15:38 Dose: 0 mls/hr Documented by: [id number] Admin: 07/20/19 14:59 Dose: 140 mls/hr Documented by: [id number] Sodium Chloride (Nss) 500 mls @ 999 mls/hr IV .Q31M [place] Stop: 07/20/19 13:30 Last Infusion: 07/20/19 15:37 Dose: 0 mls/hr Documented by: [id number] Admin: 07/20/19 14:39 Dose: 999 mls/hr Documented by: [id number] Medical Decision Making Differential Diagnosis Differential diagnoses include major intracranial, cervical, spinal, thoracic, abdominal, pelvic and neurologic injury. Fracture, contusion, sprain, strain, laceration, abrasions included as well. Medical Records Attestation: I reviewed the patient's medical records. Home Medications Current Medication List: was personally reviewed by me Laboratory Data Attestation: I reviewed the patient's lab results. Result diagrams: 07/20/19 13:22 07/20/19 13:22 Lab Results 07/20/19 07/20/19 07/20/19 Range/Units 13:22 13:22 13:23 WBC 16.69 H (4.8-10.8) K/uL RBC 3.68 L (4.2-5.4) M/uL Hgb 10.5 L (12.0-16.0) g/dL Hct 34.1 L (37-47) % MCV 92.7 (80-100) fL MCH 28.5 (25-34) pg MCHC 30.8 L (32-36) g/dL RDW Std Deviation 52.4 H (36.4-46.3) fL RDW Coeff of Shannan 15.4 H (11.5-14.5) % Plt Count 294 (130-400) K/uL MPV 10.3 (7.4-10.4) fL Immature Gran % (Auto) 0.4 % Neut % (Auto) 84.2 % Lymph % (Auto) 11.6 % Bowie % (Auto) 3.4 % Eos % (Auto) 0.3 % Baso % (Auto) 0.1 % Immature Gran # (Auto) 0.06 H (0.00-0.02) K/uL Neut # (Auto) 14.06 H (1.4-6.5) K/uL Lymph # (Auto) 1.94 (1.2-3.4) K/uL Bowie # (Auto) 0.57 (0.11-0.59) K/uL Eos # (Auto) 0.05 (0-0.5) K/uL Baso # (Auto) 0.01 (0-0.2) K/uL Absolute Nucleated RBC 0.02 H (0-0) K/uL Nucleated RBC % (auto) 0.1 % Sodium 139 (136-145) mmol/L Potassium 4.7 (3.5-5.1) mmol/L Chloride 104 (98-107) mmol/L Carbon Dioxide 29 (21-32) mmol/L Anion Gap 6.0 (3-11) BUN 42 H (7-18) mg/dl Creatinine 1.93 H (0.6-1.2) mg/dl Est Cr Clr Drug Dosing Not Reportable Est GFR ( Amer) 31.1 Est GFR (Non-Af Amer) 26.9 BUN/Creatinine Ratio 21.9 H (10-20) Glucose 109 H (70-99) mg/dl Calcium 8.5 (8.5-10.1) mg/dl Total Bilirubin 1.1 H (0.2-1) mg/dl AST 9 L (15-37) U/L ALT 14 (12-78) U/L Alkaline Phosphatase 76 (45-117) U/L Total Protein 7.1 (6.4-8.2) gm/dl Albumin 2.9 L (3.4-5.0) gm/dl Globulin 4.2 H (2.5-4.0) gm/dl Albumin/Globulin Ratio 0.7 L (0.9-2) Urine Color Yellow Urine Appearance Clear (Clear) Urine pH 5.0 (4.5-7.5) Ur Specific Benton 1.015 (1.000-1.030) Urine Protein Negative (Negative) Urine Glucose (UA) Negative (Negative) Urine Ketones Negative (Negative) Urine Blood Negative (Negative) Urine Nitrite Negative (Negative) Urine Bilirubin Negative (Negative) Urine Urobilinogen Negative (Negative) Ur Leukocyte Esterase Negative (Negative) Imaging Data Radiologist's Impression: Radiology results as stated below per my review and the radiologist's interpretation: ULTRASOUND LEFT LOWER EXTREMITY VENOUS CLINICAL HISTORY: Left leg swelling. COMPARISON STUDY: Left lower extremity venous ultrasound dated 11/10/2016. TECHNIQUE: Real-time, grayscale, and color Doppler sonography of the deep veins of the left lower extremity was performed from the inguinal crease to the calf. Compression and augmentation were utilized. FINDINGS: There is no sonographic evidence of deep venous thrombosis identified in the left lower extremity. The common femoral, superficial femoral, and popliteal veins are patent and normally compressible. The greater saphenous vein and the profunda femoris vein at the junction with the common femoral vein are clear. The visualized calf veins are patent. IMPRESSION: There is no sonographic evidence of deep venous thrombosis identified in the left lower extremity. Electronically signed by: Tano Whalen M.D. 07/20/2019 2:13 PM LEFT TIBIA AND FIBULA 2 VIEWS CLINICAL HISTORY: Fall with left morrell pain. FINDINGS: AP and lateral views of the left tibia and fibula are correlated with radiographs of the left knee dated 07/12/2019. The skeletal structures are os teopenic. No fracture is seen. The knee and ankle joints are grossly maintained noting arthritic change. There is a knee joint effusion. Soft tissue edema is present in the calf. Small pretibial phleboliths are observed. IMPRESSION: 1. Soft tissue edema with no acute radiographic evidence of left tibial or fibular fracture. 2. Knee joint effusion. Electronically signed by: Tano Whalen M.D. 07/20/2019 1:[address] SCAN OF THE BRAIN WITHOUT IV CONTRAST CLINICAL HISTORY: Fall. COMPARISON STUDY: CT of the brain dated 12/28/2018. TECHNIQUE: Unenhanced axial CT scan of the brain is performed from the vertex to the skull base. A dose lowering technique was utilized adhering to the principles of ALARA. CT DOSE: 614.27 mGy.cm FINDINGS: Brain parenchyma: There is mild age-related involutional change. Minimal microangiopathic disease is noted. There is no hemorrhage, mass effect, or evid ence of acute territorial ischemia by CT criteria. Swartz-white matter differentiation is preserved. No extra-axial fluid collection is seen. Ventricles, sulci, cisterns: Prominent secondary to involutional change. Intracranial vasculature: There is minimal atherosclerotic calcification of the cavernous carotid arteries. Calvarium: The skeletal structures are osteopenic. No depressed calvarial fr acture is identified. Sinuses and mastoids: The visualized paranasal sinuses are clear. The mastoid air cells are well pneumatized. Orbits: The bony orbits are grossly intact. IMPRESSION: There is no hemorrhage, mass effect, or evidence of acute territorial ischemia by CT criteria. Electronically signed by: Tano Whalen M.D. 07/20/2019 1:57 PM ECG Data Attestation: I personally reviewed and interpreted this ECG as follows: Indication: other (swelling in leg) Rate (beats per minute): 56 Rhythm: sinus bradycardia Findings: + other (Normal axis, poor baseline in V5, normal intervals); no PVC Blood Pressure Blood Pressure Findings: Low blood pressure MDM Narrative Patient is a 64-year-old female who presents the ER following a mechanical fall associate with erythema and shaking chills. Patient does take Eliquis. IV was established blood work was obtained. Labs show a leukocytosis of 16,000. Anemia 10.5. BMP with a creatinine of 1.93 up from 1.2. Glucose was elevated. No significant transaminitis. UA was negative. On exam patient is a clear cellulitis of left lower extremity. Doppler and x-ray were unremarkable. Patient was given IV Rocephin. She was given IV fluids. She is a diabetic. She is monitored closely. Due to the leukocytosis, shaking chills, acute kidney injury, clear cellulitis combination with weakness. Patient was updated bedside and discussed with the hospitalist for observation. Impression & Plan Cellulitis, PETE (acute kidney injury), Fall, Leukocytosis Discharge Plan Visit Data *Final* Discharge Date/Time: 07/20/19 17:20 Chief Complaint: Leg Injury/Pain Stated Complaint: LEFT LEG AND FOOT RED AND SWELLING,CHILLS ED Provider: Joe Dietrich Discharge Problem: Cellulitis, PETE (acute kidney injury), Fall, Leukocytosis Patient Disposition: Admitted As Inpatient Discharge Instructions Interventions: ED Discharge Assessment Last Done: 07/20/19 17:20 The scribe's documentation has been prepared under my direction and personally reviewed by me in its entirety. I confirm that the note above accurately reflects all work, treatment, procedures, and medical decision making performed by me.
[2019-07-20] MEDS ORDERED: HEPARIN SOD 5,000 UNIT/0.5 ML VIAL SQ SCH (21:00)
[2019-07-20] MEDS: APIXABAN 5 MG TABLET PO SCH (21:06)
[2019-07-20] MEDS: METOPROLOL TARTRATE 100 MG TAB PO SCH (21:06)
[2019-07-20] MEDS: DICLOFENAC SOD 1% GEL 100 GM TUBE EXT SCH (21:10)
[2019-07-20] MEDS: ALBUTEROL HFA 8 GM INHALER INH PRN (21:19)
[2019-07-21 06:23] LABS: Hematocrit (blood only) 31.8 % (37-47); Hemoglobin 9.7 g/dL (12.0-16.0); Mean Corpuscular Hemoglobin 28.8 pg (25-34); Mean Corpuscular Hgb Conc 30.5 g/dL (32-36); Mean Corpuscular Volume 94.4 fL (80-100); Mean Platelet Volume 10.4 fL (7.4-10.4); Platelet Count 272 K/uL (130-400); RDW Coefficient of Variation 15.4 % (11.5-14.5); RDW Standard Deviation 52.6 fL (36.4-46.3); Red Blood Count 3.37 M/uL (4.2-5.4); White Blood Count 16.69 K/uL (4.8-10.8)
[2019-07-21] MEDS: LEVOTHYROXINE SODIUM 50 MCG TABLET PO SCH (06:23)
[2019-07-21 06:38] LABS: Estimated Average Glucose 263 mg/dl; Hemoglobin A1C 10.8 % (4.5-5.6)
[2019-07-21 06:54] LABS: Albumin Level 2.4 gm/dl (3.4-5.0); Calcium 8.7 mg/dl (8.5-10.1); Creatinine Clr Calc Pharmacy 40.5 ml/min; Est GFR (African American) 31.3; Magnesium 2.3 mg/dl (1.8-2.4); Potassium 4.8 mmol/L (3.5-5.1)
[2019-07-21 07:04] LABS: Albumin Globulin Ratio 0.6 (0.9-2); Bilirubin,Total 0.5 mg/dl (0.2-1); Globulin 3.8 gm/dl (2.5-4.0); Total Protein 6.2 gm/dl (6.4-8.2)
[2019-07-21] MEDS: INSULIN ASPART 100 UNITS/ML 3 ML PEN SC SCH ×4 (08:26→20:46)
[2019-07-21] MEDS: AMIODARONE 200 MG TAB PO SCH (08:33)
[2019-07-21] MEDS: ASPIRIN 81 MG ECTAB PO SCH (08:35)
[2019-07-21] MEDS: APIXABAN 5 MG TABLET PO SCH ×2 (08:38→20:45)
[2019-07-21] MEDS: INSULIN GLARGINE SOLOSTAR 100 UNITS/ML 3 ML PEN SQ SCH (08:40)
[2019-07-21] MEDS: ATORVASTATIN 40 MG TAB PO SCH (08:43)
[2019-07-21] MEDS: METOPROLOL TARTRATE 100 MG TAB PO SCH ×2 (08:46→20:46)
[2019-07-21] MEDS: EZETIMIBE 10 MG TABLET PO SCH (08:47)
[2019-07-21] MEDS: DICLOFENAC SOD 1% GEL 100 GM TUBE EXT SCH ×4 (10:27→20:46)
[2019-07-21] MEDS ORDERED: VANCOMYCIN CONSULT ACTIVE PRN (10:32)
[2019-07-21] MEDS ORDERED: VANCOMYCIN HCL 2,750 MG in SODIUM CHLORIDE 0.9% 500 ML IV SCH (11:15)
[2019-07-21] MEDS ORDERED: VANCOMYCIN PEAK REMINDER 0.1 ML IV SCH (11:15)
[2019-07-21] MEDS ORDERED: MECLIZINE 12.5 MG TAB PO PRN (11:57)
--- NOTE | 2019-07-21 12:16 | Pharmacy Report ---
Pharmacy Abx Initial Consult - Date of Service July 21, 2019 - Pharmacy Dosing Scope Date of Consult: 07/21 Consultation requested by: Aura Tucker Pharmacy is consulted to initiate vancomycin IV dosing therapy, order appropriate labs and adjust drug dose/frequency. - Subjective The patient is a 64 year old F admitted on 07/20/19 16:12. - Objective Height: 5 ft 5 in Weight: 131.4 kg Vital Signs (Past 12hrs): Vital Signs Temp Pulse Pulse Resp BP Pulse Ox 07/21/19 08:10 36.7 C 61 20 108/62 97 07/21/19 07:00 62 07/21/19 04:00 36.8 C 62 20 110/58 L 92 Lab Results (24hrs): Laboratory Tests (24 Hours) 07/21/19 07/21/19 07/20/19 05:51 05:51 13:22 WBC 16.69 H Neut # (Auto) Creatinine 1.92 H 1.93 H Est Cr Clr Drug Dosing 40.5 Not Reportable 07/20/19 13:22 WBC 16.69 H Neut # (Auto) 14.06 H Creatinine Est Cr Clr Drug Dosing Micro Results: 07/20/19 17:08 Aerobic Blood Culture - Pending Blood Anaerobic Blood Culture - Pending 07/20/19 17:13 Aerobic Blood Culture - Pending Blood Anaerobic Blood Culture - Pending - Assessment & Plan Assessment 64 year old F admitted for LLE cellulitis s/p recent fall leading to open wounds. PMH pertinent for T2DM, COPD, CKD Stage III (baseline SCr 1.1) and obesity. Patient was initially placed on Rocephin but this was broadened to vancomycin and ceftazidime this AM. Plan Vancomycin and ceftazidime for treatment of LLE cellulitis Vancomycin IV * Estimated PK Parameters: Vd 0.54 L/kg, Kelton 0.0376 hr-1, t1/2 18 hr * Loading dose: 2750 mg (21 mg/kg) * Goal trough level : 10 to 15 mcg/mL * Peak level ordered after today's dose and random level ordered for 07/22/19 w/ AM labs due to patient's elevated SCr and difficulty dosing in obese patient Ceftazidime * Dose adjusted to 1 gm IV q12h as per renal dosage adjustment protocol for CrCl 30-50 Pharmacy will continue to follow and will adjust dose/frequency as necessary. Thank you.
--- NOTE | 2019-07-21 13:31 | Hospitalist Progress Note ---
Date of Service July 21, 2019 Assessment & Plan (1) Cellulitis: - LLE cellulitis noted on admission; possibly related to recent fall leading to open wounds on LLE. - Leukocytosis noted on labs; has been afebrile, normotensive. - Tib/fib XR showed soft tissue edema, neg for fracture following fall. - Doppler of LLE negative for DVT. - broadened coverage due to lack of any response since yesterday as well as patient being poorly controlled diabetic - ceftazidime and vancomycin (2) Fall: - Has had 2 falls over the last two weeks - likely related to left knee pain; no indication for cardiac work up. - PT/OT (3) Leukocytosis: - no improvement from yesterday - abx as above - repeat CBC am (4) PETE (acute kidney injury): - Creatinine increased to 1.93, baseline ~1.1-1.2 - stable today - Likely pre-renal related to dehydration in setting of elevated BUN/Cr ratio. - Received 500 cc bolus in ED; hold further fluids in setting of +1-2 bilat LE pitting edema and h/o CHF. - Hold nephrotoxic meds, including Torsemide, Irbesartan, Aldactone, Metformin. - Monitor renal function daily. (5) Stage III chronic kidney disease: - Renally dose all meds. - avoid nephrotoxins when possible (6) Left knee injury: - Has been evaluated by ortho (Dr. Taylor) as outpatient for acute left knee pain, s/p steroid injection and provided knee brace to wear at home. - Knee XR on 07/12 showed no acute fracture, small left knee joint effusion and moderate to severe left knee osteoarthritis. - Pt. is currently on medical leave from work due to knee pain. - Hold Mobic in setting of ARF; Tylenol and Voltaren gel prn pain. (7) Paroxysmal atrial fibrillation: - Sinus bradycardia noted on admission EKG - Continue Eliquis 5 mg BID. - Continue Metoprolol 100 mg BID, Amiodarone 200 mg qAM as prescribed. (8) Diabetes mellitus type 2, uncontrolled: - Hgb A1C was 10.3 in May 2019. - Continue Lantus 50 units qAM with SSI coverage. - Holding home Metformin. - May benefit from primary special educator consult. (9) Dyslipidemia: - Continue ASA and statin as prescribed. (10) COPD (chronic obstructive pulmonary disease): - No evidence of acute exacerbation. - Continue Albuterol prn. (11) Chronic diastolic CHF (congestive heart failure): - Most recent TTE in August 2018 showed EF 55-60%, left atrium borderline dilated. - Currently appears well compensated; does have +1-2 bilat LE pitting edema but pt. reports this is chronic for her. - continue Is & Os and daily weights - Holding home Torsemide, Aldactone and Irbesartan in setting of ARF. - Continue beta lisa as prescribed. (12) HTN (hypertension): - Continue Metoprolol as prescribed. - Holding Irbesartan, Aldactone, Torsemide in setting of ARF. (13) Hypothyroid: - Continue Synthroid 50 mcg daily. - TSH was 3.1 in December 2018. (14) Anemia: - Hgb was decreased to 10.5 and trending down, baseline hgb is 13-15. - repeat cbc am, no s/s of bleeding but may need further workup if hgb does not stabilize (15) Obesity: - Encourage weight loss and exercise. (16) DVT prophylaxis: - SCDs; Heparin BID. Dispo: Med/surg with tele for treatment of LLE cellulitis. DNR/DNI (17) Vertigo: continue prn meclizine Supervising Physician Co-Signing Physician Notes I supervised Jayne Tucker NP on this patient's care. I examined the patient today independently of her. I discussed the plan of care with her with the plan being as written in her note except for any following changes/exceptions: None. Patient reports the vertigo is improved from earlier today. Often lasts for 24- 48 hours, but improves within a day. Her vertigo is not too bad at present. Will treat conservatively for now. Can consider PT for [place]-Hallpike and Nasima if not improved by tomorrow. Subjective Ms. Perkins continues to have erythema extending from foot to knee on her left leg. It is tender to touch but not overly painful. No drainage. Upon re-evalu ation in the evening, Ms. Perkins was feeling very dizzy and nauseas which she attributes to her chronic vertigo, no headache or other associated symptoms. Review of Systems Review of Systems: All systems reviewed & are unremarkable except as noted in HPI & below Physical Exam Physical Exam: General: no distress Eyes: normal inspection, PERLL Respiratory: chest non tender, clear to auscultation, normal breath sounds, no respiratory distress, no accessory muscle use Cardiac: regular rate and rhythm, no rub or gallop, no murmur, lower extremity edema left > right GI/: active bowel sounds, no abd pain or tenderness, soft, non distended Extremities: normal range of motion, normal strength, non tender Neuro/Psych: alert and oriented x 3, normal mood and affect, CN II - XII Skin: normal color, dry, left lower extremity erythematous and edematous Results & Data Vital Signs (Past 12 Hours) Vital Signs Temp Pulse Pulse Resp BP Pulse Ox 07/21/19 12:00 36.9 C 62 15 133/79 91 07/21/19 08:10 36.7 C 61 20 108/62 97 07/21/19 07:00 62 07/21/19 04:00 36.8 C 62 20 110/58 L 92 PG Care Time/CCT Total # of Minutes Spent Total Time Spent with Patient: Total time spent is greater than 50% in coordination of care (as documented) at patient's floor/unit and/or counseling patient:
[2019-07-21] MEDS ORDERED: cefTRIAXone SODIUM 2,000 MG in DEXTROSE 5% 50 ML IV SCH (14:00)
[2019-07-21 17:23] LABS: Calcium 9.1 mg/dl (8.5-10.1); Creatinine Clr Calc Pharmacy 46.6 ml/min; Est GFR (African American) 37.1; Potassium 4.8 mmol/L (3.5-5.1)
[2019-07-22] MEDS: LEVOTHYROXINE SODIUM 50 MCG TABLET PO SCH (05:50)
[2019-07-22 07:14] LABS: Basophils # (auto) 0.01 K/uL (0-0.2); Basophils % (auto) 0.1 %; Eosinophils # (auto) 0.09 K/uL (0-0.5); Eosinophils % (auto) 0.7 %; Hematocrit (blood only) 34.3 % (37-47); Hemoglobin 10.1 g/dL (12.0-16.0); Immature Granulocytes # (auto) 0.07 K/uL (0.00-0.02); Immature Granulocytes % (auto) 0.5 %; Lymphocytes # (auto) 1.48 K/uL (1.2-3.4); Lymphocytes % (auto) 11.3 %; Mean Corpuscular Hemoglobin 28.1 pg (25-34); Mean Corpuscular Hgb Conc 29.4 g/dL (32-36); Mean Corpuscular Volume 95.3 fL (80-100); Mean Platelet Volume 10.5 fL (7.4-10.4); Monocytes # (auto) 0.97 K/uL (0.11-0.59); Monocytes % (auto) 7.4 %; Neutrophils # (auto) 10.45 K/uL (1.4-6.5); Platelet Count 269 K/uL (130-400); RDW Coefficient of Variation 15.5 % (11.5-14.5); RDW Standard Deviation 54.3 fL (36.4-46.3); White Blood Count 13.07 K/uL (4.8-10.8)
[2019-07-22] MEDS: INSULIN GLARGINE SOLOSTAR 100 UNITS/ML 3 ML PEN SQ SCH (08:09)
[2019-07-22] MEDS: INSULIN ASPART 100 UNITS/ML 3 ML PEN SC SCH ×4 (08:12→20:32)
[2019-07-22] MEDS: ASPIRIN 81 MG ECTAB PO SCH (08:21)
[2019-07-22] MEDS: EZETIMIBE 10 MG TABLET PO SCH (08:21)
[2019-07-22] MEDS: ATORVASTATIN 40 MG TAB PO SCH (08:22)
[2019-07-22] MEDS: APIXABAN 5 MG TABLET PO SCH ×2 (08:27→20:30)
[2019-07-22] MEDS: DICLOFENAC SOD 1% GEL 100 GM TUBE EXT SCH ×3 (08:29→20:31)
[2019-07-22] MEDS: METOPROLOL TARTRATE 100 MG TAB PO SCH ×2 (08:37→20:31)
[2019-07-22] MEDS: AMIODARONE 200 MG TAB PO SCH (08:37)
[2019-07-22] MEDS: VANCOMYCIN HCL 1,500 MG in SODIUM CHLORIDE 0.9% 500 ML IV SCH ×2 (08:38→23:54)
--- NOTE | 2019-07-22 09:45 | Pharmacy Report ---
Pharmacy Abx Dose Short Note - Date of Service July 22, 2019 - Assessment & Plan Assessment 64 year old F receiving vancomycin and ceftazidime for treatment of LLE cellulitis, that worsened after patient was on Rocephin alone. Day # 2/10 of antimicrobial therapy. SCr has improved from 1.92 -> 1.67, but still not at baseline of ~1.1 Blood cultures - NGTD Plan Vancomycin * Peak and random level obtained after 1st dose, to obtain more patient specific kinetics in patient with elevated BMI and SCr * Peak = 33.7, Random (~one t1/2 later) = 15.5 * Est PK parameters from these levels: Ke 0.05, t1/2 13.8 hrs (note: not steady state parameters) * SCr has improved further today so difficult to determine true kinetic parameters; however, patient will need re-dosed now and will need to take into consideration that patient will likely accumulate and that SCr will continue to improve * Start maintenance dose of 1500 mg (12 mg/kg) IV q16h * Goal trough level : 10 to 15 mcg/mL * Will plan to order trough level with 4th dose but will wait to assess renal function tomorrow in case this improves further Pharmacy will continue to follow and will adjust dose/frequency as necessary. Thank you.
--- NOTE | 2019-07-22 14:56 | Hospitalist Progress Note ---
Date of Service July 22, 2019 Assessment & Plan (1) Cellulitis: - LLE cellulitis noted on admission; possibly related to recent fall leading to open wounds on LLE. - Leukocytosis improving; has been afebrile, normotensive. - Tib/fib XR showed soft tissue edema, neg for fracture following fall. - Doppler of LLE negative for DVT. - Erythema improving with ceftazidime and vancomycin - will continue (2) Fall: - Has had 2 falls over the last two weeks - likely related to left knee pain; no indication for cardiac work up. - PT/OT (3) Leukocytosis: - improving - abx as above - repeat CBC am (4) PETE (acute kidney injury): - Creatinine increased to 1.93, baseline ~1.1-1.2 - trending down - Likely pre-renal related to dehydration in setting of elevated BUN/Cr ratio. - Received 500 cc bolus in ED; hold further fluids in setting of +1-2 bilat LE pitting edema and h/o CHF. - Hold nephrotoxic meds, including Torsemide, Irbesartan, Aldactone, Metformin. - Repeat level am (5) Stage III chronic kidney disease: - Renally dose all meds. - avoid nephrotoxins when possible (6) Left knee injury: - Has been evaluated by ortho (Dr. Taylor) as outpatient for acute left knee pain, s/p steroid injection and provided knee brace to wear at home. - Knee XR on 07/12 showed no acute fracture, small left knee joint effusion and moderate to severe left knee osteoarthritis. - Pt. is currently on medical leave from work due to knee pain. - continue to hold Mobic in setting of ARF; Tylenol and Voltaren gel prn pain. (7) Paroxysmal atrial fibrillation: - Sinus bradycardia noted on admission EKG - heart rates now 50s - 80s - Continue Eliquis 5 mg BID. - Continue Metoprolol 100 mg BID, Amiodarone 200 mg qAM as prescribed. (8) Diabetes mellitus type 2, uncontrolled: -Poorly controlled - Hgb A1C was 10.3 in May 2019. - Continue Lantus 50 units qAM with SSI coverage. - Holding home Metformin. - certified diabetes educator consulted (9) Dyslipidemia: - Continue ASA and statin as prescribed. (10) COPD (chronic obstructive pulmonary disease): - No evidence of acute exacerbation. - Continue Albuterol prn. (11) Chronic diastolic CHF (congestive heart failure): - Most recent TTE in August 2018 showed EF 55-60%, left atrium borderline dilated. - Currently appears well compensated; does have +1-2 bilat LE pitting edema but pt. reports this is chronic for her. - continue Is & Os and daily weights - net negative Is&Os - Holding home Torsemide, Aldactone and Irbesartan in setting of ARF. - Continue beta lisa as prescribed. (12) HTN (hypertension): - Continue Metoprolol as prescribed. - Holding Irbesartan, Aldactone, Torsemide in setting of ARF. (13) Hypothyroid: - Continue Synthroid 50 mcg daily. - TSH was 3.1 in December 2018. (14) Anemia: - Hgb was decreased to 10.5 and stable - no s/s of bleeding (15) Obesity: - Encourage weight loss and exercise. (16) DVT prophylaxis: - SCDs; apixaban DNR/DNI (17) Vertigo: continue prn meclizine Subjective Ms. Perkins is feeling better today, her vertigo is much better. She was able to participate in therapy. Review of Systems Review of Systems: All systems reviewed & are unremarkable except as noted in HPI & below Physical Exam Physical Exam: General: no distress Eyes: normal inspection, PERLL Respiratory: chest non tender, clear to auscultation, normal breath sounds, no respiratory distress, no accessory muscle use Cardiac: regular rate and rhythm, no rub or gallop, no murmur, bilateral lower extremity edema L > R GI/: active bowel sounds, no abd pain or tenderness, soft, non distended Extremities: normal range of motion, normal strength, non tender Neuro/Psych: alert and oriented x 3, normal mood and affect Skin: normal color, dry, erythema left lower extremity Results & Data Vital Signs (Past 12 Hours) Vital Signs Temp Pulse Pulse Resp BP Pulse Ox 07/22/19 11:47 36.7 C 88 106/66 96 07/22/19 08:33 62 07/22/19 07:48 97 07/22/19 07:12 36.5 C 140 H 16 133/75 86 L 07/22/19 07:00 70 07/22/19 03:21 36.9 C 79 20 101/49 L 93 PG Care Time/CCT Total # of Minutes Spent Total Time Spent with Patient: Total time spent is greater than 50% in coordination of care (as documented) at patient's floor/unit and/or counseling patient:
[2019-07-22] MEDS: ALBUTEROL HFA 8 GM INHALER INH PRN ×2 (16:37→23:11)
[2019-07-23] MEDS: LEVOTHYROXINE SODIUM 50 MCG TABLET PO SCH (05:54)
[2019-07-23 07:33] LABS: Hematocrit (blood only) 31.1 % (37-47); Hemoglobin 9.4 g/dL (12.0-16.0); Mean Corpuscular Hemoglobin 28.9 pg (25-34); Mean Corpuscular Hgb Conc 30.2 g/dL (32-36); Mean Corpuscular Volume 95.7 fL (80-100); Mean Platelet Volume 10.7 fL (7.4-10.4); Nucleated RBC # (auto) 0.09 K/uL (0-0); Nucleated RBC % (auto) 0.9 %; Platelet Count 285 K/uL (130-400); RDW Coefficient of Variation 15.5 % (11.5-14.5); RDW Standard Deviation 54.2 fL (36.4-46.3); Red Blood Count 3.25 M/uL (4.2-5.4); White Blood Count 9.98 K/uL (4.8-10.8)
[2019-07-23] MEDS: METOPROLOL TARTRATE 100 MG TAB PO SCH (07:57)
[2019-07-23] MEDS: ASPIRIN 81 MG ECTAB PO SCH (07:57)
[2019-07-23] MEDS: AMIODARONE 200 MG TAB PO SCH (07:57)
[2019-07-23] MEDS: EZETIMIBE 10 MG TABLET PO SCH (07:58)
[2019-07-23] MEDS: APIXABAN 5 MG TABLET PO SCH (07:58)
[2019-07-23] MEDS: ATORVASTATIN 40 MG TAB PO SCH (07:58)
[2019-07-23] MEDS: DICLOFENAC SOD 1% GEL 100 GM TUBE EXT SCH ×2 (07:59→14:47)
[2019-07-23] MEDS: INSULIN ASPART 100 UNITS/ML 3 ML PEN SC SCH ×3 (08:00→17:22)
[2019-07-23] MEDS: INSULIN GLARGINE SOLOSTAR 100 UNITS/ML 3 ML PEN SQ SCH (08:01)
[2019-07-23 08:09] LABS: BUN Creatinine Ratio 19.2 (10-20); Calcium 8.6 mg/dl (8.5-10.1); Creatinine Clr Calc Pharmacy 53.5 ml/min; Est GFR (African American) 43.6; Est GFR (Non-African American) 37.6; Potassium 4.7 mmol/L (3.5-5.1)
--- NOTE | 2019-07-23 13:04 | Discharge Summary ---
Date of Service July 23, 2019 Admission HPI Per Admitting Provider Ms. Perkins is a 64 year old female with past medical history of paroxysmal A. fib, COPD, degenerative disc disease, type II DM, chronic diastolic CHF, HLD, HTN, hypothyroidism, obesity, spinal stenosis who presented to the ER with left leg redness, pain and edema. Pt. has had acute issues with her left knee over the last few weeks -- she is currently on medical leave due to left knee pain. She has been evaluated by urgent care along with orthopedics (Dr. Taylor). Pt. reports she fell down the stairs in her home on July 10, 2019. Fall was related to instability with walking along with left knee pain; denies acute injuries during fall. She was evaluated by orthopedics (Dr. Taylor) last week; she had a steroid injection in her knee and was provided a brace to wear at home. Knee pain was stable over the last week. She fell last evening around 4 pm at her home -- reports she "turned a corner too sharp". Pt. primarily landed on her left side. Denies chest pain, SOB, dizziness leading to fall; denies loss of consciousness after fall. She woke up this morning with left leg redness, pain and swelling extending from her knee distally to the foot. Pt. had chills overnight and low grade fevers. Currently denies chest pain, SOB, URI symptoms, abd pain, dysuria or hematuria, constipation or diarrhea. ER course: Tib/fib XR was negative, did show soft tissue edema. Head CT was negative. Doppler of left lower extremity was also negative. Pt. had a leukocytosis on labs with acute renal failure. Received 500 cc bolus and Ceftriaxone 2 gm IV. Will admit for further treatment of LLE cellulitis. Principal Diagnosis Cellulitis Discharge Exam Constitutional WD/WN, vitals as above Respiratory normal respiratory effort, lungs clear to auscultation Cardiovascular RRR, no murmur, no edema Gastrointestinal (Abdomen) Inspection/Auscultation: abdomen normal to inspection and normal bowel sounds; abdomen not distended Percussion/Palpation: abdomen soft; abdomen nontender Musculoskeletal no cyanosis or clubbing, extremities motor strength 5/5 Skin left leg edema/erythema improving Scabbed cut on left heel, no drainage. Neurologic moves all extremities and awake Psychiatric A+Ox3, euthymic affect Discharge Data Allergies Allergy/AdvReac Type Severity Reaction Status Date / Time amoxicillin Allergy Severe SOB, RASH Verified 07/20/19 13:04 Penicillins Allergy Severe SOB, RASH Verified 07/20/19 13:04 clarithromycin Allergy Intermediate "feels Verified 07/20/19 13:04 like flying high" clindamycin Allergy Intermediate "feels Verified 07/20/19 13:04 like flying high" fluconazole Allergy Intermediate "feels Verified 07/20/19 13:04 like flying high" sulfamethoxazole Allergy Intermediate "feels Verified 07/20/19 13:04 like flying high" trimethoprim Allergy Intermediate "feels Verified 07/20/19 13:04 like flying high" Bactrim Allergy Unknown UNKNOWN Verified 02/21/18 10:32 codeine AdvReac Mild ITCHING, Verified 07/20/19 13:04 NAUSEA Consultations 07/20/19 15:17 ED Decision to Admit Stat 07/20/19 17:48 Consult Case Management - Discharge Planning Routine Ordered Studies 07/20/19 12:50 CT head/brain wo con Stat 07/20/19 12:53 US venous doppler LE LT Stat Hospital Course (1) Cellulitis: - LLE cellulitis noted on admission. - Leukocytosis resolved; has been afebrile, normotensive. - Tib/fib XR showed soft tissue edema, neg for fracture following fall. - Doppler of LLE negative for DVT. - Erythema improving with ceftazidime and vancomycin - discussed home regimen with pharmacy - will send out with cefdinir for 10 more days for a total of 2 weeks of treatment. May be able to shorten this regimen depending on response at the time of her pcp visit. We discussed warning signs that her cellulitis is worsening and she agreed to call her doctor right away if she has any increase in symptoms or fever. (2) Fall: - Has had 2 falls over the last two weeks - likely related to left knee pain; no indication for cardiac work up. - PT/OT - recommend home with roller walker which patient has (3) Leukocytosis: - resolved (4) PETE (acute kidney injury): - Creatinine increased to 1.93, baseline ~1.1-1.2 - trending down - Likely pre-renal related to dehydration in setting of elevated BUN/Cr ratio. - Received 500 cc bolus in ED; hold further fluids in setting of +1-2 bilat LE pitting edema and h/o CHF. - Held nephrotoxic meds, resume Torsemide, Irbesartan, Aldactone tomorrow, Metformin on Sunday - patient will have lab work done on Sunday morning (5) Stage III chronic kidney disease: - Renally dose all meds. - avoid nephrotoxins when possible (6) Left knee injury: - Has been evaluated by ortho (Dr. Taylor) as outpatient for acute left knee pain, s/p steroid injection and provided knee brace to wear at home. - Knee XR on 07/12 showed no acute fracture, small left knee joint effusion and moderate to severe left knee osteoarthritis. - Pt. is currently on medical leave from work due to knee pain. - continue to hold Mobic in setting of ARF and discuss with pcp before resuming; Tylenol and Voltaren gel prn pain. (7) Paroxysmal atrial fibrillation: - Sinus bradycardia noted on admission EKG - heart rates now 50s - 80s - Continue Eliquis 5 mg BID. - Continue Metoprolol 100 mg BID, Amiodarone 200 mg qAM as prescribed. (8) Diabetes mellitus type 2, uncontrolled: -Poorly controlled - Hgb A1C was 10.3 in May 2019. - Continue Lantus 50 units qAM with SSI coverage. - Holding home Metformin until Sunday - PETE nearly resolved - family life educator consulted - per her note patient was not ready to discuss changes in her diabetes care concerning improving her A1c. She will need to revisit this with her primary care provider and cone cleaner. (9) Dyslipidemia: - Continue ASA and statin as prescribed. (10) COPD (chronic obstructive pulmonary disease): - No evidence of acute exacerbation. - Continue Albuterol prn. (11) Chronic diastolic CHF (congestive heart failure): - Most recent TTE in August 2018 showed EF 55-60%, left atrium borderline dilated. - Currently appears well compensated; does have +1-2 bilat LE pitting edema but pt. reports this is chronic for her. - continue Is & Os and daily weights - net negative Is&Os - Held home Torsemide, Aldactone and Irbesartan in setting of ARF, resume as above - Continue beta lisa as prescribed. (12) HTN (hypertension): - Continue Metoprolol as prescribed. - Held Irbesartan, Aldactone, Torsemide in setting of ARF -resume as above (13) Hypothyroid: - Continue Synthroid 50 mcg daily. - TSH was 3.1 in December 2018. (14) Anemia: - Hgb was decreased but stable between 9 and 10 - no s/s of bleeding - repeat CBC on Sunday - may need further work up outpatient (15) Obesity: - Encourage weight loss and exercise. (16) DVT prophylaxis: - SCDs; apixaban DNR/DNI (17) Vertigo: continue prn meclizine Total Time Total Time Spent Total Time Spent (In Minutes): greater than 30 minutes Discharge Plan Discharge Items Patient Disposition: Home - Self-Care Reason For Visit: CELLULITIS Discharge Diagnosis: cellulitis Activity: As commented below Non-emergency contact: Primary Care Provider Call non-emergency contact if: you have any medication questions, your symptoms worsen, your pain is not controlled, your pain is worsening and you have a fever Follow-up/Referrals: Jimbo Srivastava III, MD [Primary Care Provider] - 07/29/19 2:00 pm (Please, follow up at Dr. Srivastava's office with his associate, Dinah ESTRADA, on SundayJuly 29 at 2:00 pm. *If you need to change this appointment, call their office at [phone].) Diet: Carb Consistent or DM2 and Low Sodium (2gm) Ambulatory Orders: Basic Metabolic Panel (Routine) Timeframe: 20190725 Location: Determined by Patient Ordered By: Jayne Tucker Complete Blood Count no Diff (Timed) Timeframe: 20190725 Location: Determined by Patient Ordered By: Jayne Tucker Addtl Attending Provider Instructions: Please see your primary care provider within about a week. Your physical therapy evaluation recommends you walk with a rolling walker. You should remain off of work until cleared by your pcp. You can restart your torsemide, spironolactone, and irbesartan tomorrow. Hold your meloxicam until you see your pcp and discuss whether you should restart. Please go have your blood work drawn Sunday morning. Results will go to your primary care provider . Your hemoglobin A1c was 10.8. Please discuss your diabetes regimen with your provider so you can reduce your A1c. You can resume your metformin on Sunday. Pending Studies at Discharge: No Stand-Alone Forms: Work/School Release (ED), [facility] Medications and DC Order Prescriptions: New cefdinir 300 mg capsule 300 mg PO BID 10 Days Qty: 20 RF: 0 Continued aspirin [Aspirin Low Dose] 81 mg Tablet,Delayed Release (Dr/Ec) 81 mg PO QAM Qty: 0 RF: 0 ezetimibe 10 mg Tablet 10 mg PO QAM Qty: 0 RF: 0 meclizine 12.5 mg Tablet 12.5 mg PO TID PRN (Reason: Dizziness) 10 Days Qty: 30 RF: 0 metformin 500 mg Tablet Extended Release 24 Hr 500 mg PO BID Qty: 0 RF: 0 Lantus Solostar U-100 Insulin 100 unit/mL (3 mL) Insulin Pen 45 - 50 units SUBCUT QAM Qty: 0 RF: 0 albuterol sulfate 90 mcg/actuation HFA aerosol inhaler 2 puff INHALATION Q6H PRN (Reason: Shortness Of Breath) Qty: 18 RF: 6 amiodarone 200 mg tablet 200 mg PO QAM RF: 0 Novolog U-100 Insulin aspart 100 unit/mL Solution 1 sliding scale dose SUBCUT TIDM RF: 0 atorvastatin [Lipitor] 40 mg tablet 40 mg PO QAM RF: 0 torsemide 20 mg tablet 20 mg PO QAM RF: 0 spironolactone 25 mg tablet 25 mg PO QAM RF: 0 levothyroxine 50 mcg tablet 50 mcg PO QAM RF: 0 irbesartan 300 mg tablet 300 mg PO QAM RF: 0 vitamin E 1,000 unit Capsule 1,000 unit PO DAILY RF: 0 cyanocobalamin (vitamin B-12) [Vitamin B-12] 1,000 mcg Tablet 1,000 mcg PO DAILY RF: 0 metoprolol tartrate 100 mg tablet 100 mg PO BID RF: 0 magnesium chloride 64 mg tablet,delayed release (DR/EC) 64 mg PO BID RF: 0 apixaban 5 mg tablet 5 mg PO Q12H RF: 0 Discontinued meloxicam 15 mg tablet 15 mg PO QAM RF: 0 Discharge Orders: Discharge Order (Routine); Ordered 07/23/19 Ordered By: Jayne Cottrell/Other Patient Handouts: Diabetes [facility] Complications, Diabetes Resources, Diabetes Type 2 Coping, Diabetes Healthy Meals, Diabetes Carbs, Diabetes Exercise Benefits, Diabetes Exercise Get Started, Diabetes Activity Tips, Diabetes Living Life, Diabetes Manage A1C Test Admission Data Admit Date/Time: 07/23/19 08:10 Attending Provider: Nick Montes Admit Provider: Satish Remy Primary Care Provider: Jimob Srivastava III Other Providers: Nick Montes
[2019-07-23] MEDS ORDERED: VANCOMYCIN TROUGH ONE (16:30)
== END 2019-07-23 17:27 | disposition home or self-care (01) | DRG 603 ==
LOC: 2W 12:15 → ED 12:15 → SUATTDRO 16:12 → 2W 17:20
DX: N18.3 Chronic kidney disease, stage 3 (moderate); R42 Dizziness and giddiness; D72.829 Elevated white blood cell count, unspecified; W19.XXXA Unspecified fall, initial encounter; N17.9 Acute kidney failure, unspecified; Z88.0 Allergy status to penicillin; D64.9 Anemia, unspecified; Z79.82 Long term (current) use of aspirin; E11.9 Type 2 diabetes mellitus without complications; Z68.42 Body mass index [BMI] 45.0-49.9, adult; Z66 Do not resuscitate; Z88.1 Allergy status to other antibiotic agents; I50.32 Chronic diastolic (congestive) heart failure; Z88.5 Allergy status to narcotic agent; E66.9 Obesity, unspecified; Z79.01 Long term (current) use of anticoagulants; I48.0 Paroxysmal atrial fibrillation; E78.5 Hyperlipidemia, unspecified; Z82.49 Family history of ischemic heart disease and other diseases of the circulatory system; S89.92XA Unspecified injury of left lower leg, initial encounter; Z83.3 Family history of diabetes mellitus; I13.0 Hypertensive heart and chronic kidney disease with heart failure and stage 1 through stage 4 chronic kidney disease, or unspecified chronic kidney disease; Z79.84 Long term (current) use of oral hypoglycemic drugs; L03.116 Cellulitis of left lower limb; Z90.710 Acquired absence of both cervix and uterus

== ENCOUNTER 2020-03-31 14:55 | Observation (INO) ==
[2020-03-31] MEDS ORDERED: dilTIAZem HCl 5 MG/ML 5 ML VIAL IV STA (16:32)
[2020-03-31] MEDS ORDERED: SODIUM CHLORIDE 0.9% 1000ML 1,000 ML IV STA (16:33)
--- NOTE | 2020-03-31 16:38 | Emergency Department Note ---
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 She has rapid a flutter with 2-1 conduction. This is a problem that she has had before. She is currently anticoagulated. An IV was established. Blood work was obtained. ECG did not reveal any acute ischemic findings. The patient was administered 10 mg of IV Cardizem. She was still experiencing rapid atrial flutter but was asymptomatic. Her blood work was unremarkable except for mildly low blood sugar. She did not eat today. She was given juice and a diet.. Chest x-ray did not reveal any obvious acute CHF findings. I did discuss the case with Dr. Schreiber of cardiology. He recommended admission to internal medicine. Continue her current medications and to avoid any excessive use of rate control medications as she will need cardioversion, most likely in the morning. If she becomes symptomatic or extremely tachycardic then medications can be administered in conjunction with cardiology. Consultation was made with Dr. Mcgill of internal medicine. Patient was evaluated in the ER for further management. Triage Nursing notes reviewed and agree them. [Prior medical records reviewed] the patient was previously treated with Cardizem and amiodarone for rapid atrial flutter. Vital Signs: reviewed and remarkable for significant tachycardia. Differential diagnosis: Premature contractions, electrolyte abnormality, cardiac dysrhythmia, thyroid dysfunction, pulmonary embolism, infection, gastrointestinal, as well as other pathologies. ER treatment provided: IV normal saline IV Cardizem 10 mg Diagnostics interpreted by me: ECG: Rate: 120 bpm Rhythm: A flutter with 2-1 conduction [place]: Normal QRS: Normal ST segements: No elevation or depression Other: No PVCs Cardiac Monitoring: Cardiac monitoring ordered by me: The patient was placed on continuous cardiac monitoring and observed. It revealed a atrial flutter with rapid ventricular response at 120 beats per minute without ectopy. Laboratory studies: [See below] unremarkable CBC and chemistry panel except for hyperglycemia. Negative troponin. Imaging studies: Chest imaging shows a mild cardiomegaly. Negative for pneumonia, infiltrate, significant edema. I refer you to the EMR. Consultation(s): Dr. Schreiber, [facility] [place] cardiology Dr. Mcgill, [facility] Hospitalist HPI:The patient is a 64 year old female who presents to the Emergency Room with complaints of rapid heart beat. This started at an unknown time and is asymptomatic. The patient has a history of atrial fib/flutter. She had her routine cardiology appointment today with Dr. Rapp and was found to have rapid atrial flutter with 2-1 conduction. She came to the ER for further management.. The patient also notes the following associated symptoms, none. The patient has tried no relieving factors. Current pain is rated as 0/10. Pt denies LOC, headache, fevers, chills, diaphoresis, visual changes, neck pain, chest pain, breathing difficulties, nausea, vomiting, abdominal pain, back pain, melena, hematochezia, urinary symptoms, numbness, weakness, lymphadenopathy, rash, or other complaints. ROS: See above HPI for pertinent positives & negatives. A total of [10] systems reviewed and were otherwise negative. PAST MEDICAL HISTORY:[See Below] diabetes, atrial flutter, anticoagulation PAST SURGICAL HISTORY:[See Below]hysterectomy FAMILY HISTORY:[See Below] SOCIAL HISTORY:[See Below] HOME MEDICATIONS:[See Below] ALLERGIES:[See Below] VITALS:[See Below] PHYSICAL EXAMINATION: GENERAL: Awake, alert, well-appearing, in no distress HENT: Normocephalic, atraumatic. Oropharynx unremarkable. EYES: Normal conjunctiva. Sclera non-icteric. NECK: Inspection normal. Non-tender. Supple. No nuchal rigidity. FROM. No masses. RESPIRATORY: Clear to auscultation. No wheezes. No rales. Normal respiratory effort. CARDIAC: Tachycardic rate. Normal rhythm. No murmurs. No rubs. Extremities warm and well perfused. Pulses equal. No JVD. GI: Soft, non-distended. No tenderness to palpation. No rebound or guarding. No masses. RECTAL: Deferred. MUSCULOSKELETAL: Atraumatic. Chest examination reveals no tenderness. The back is symmetrical on inspection without obvious abnormality. There is no CVA tenderness to palpation. No joint edema. LOWER EXTREMITIES: Calves are equal size bilaterally and non-tender. 2+ lower edema. No discoloration. NEURO: Normal sensorium. No sensory or motor deficits noted. SKIN: No rash or jaundice noted. ED COURSE: [Critical Care:] [None] Jim Acuña MD Past Med/Surg History Medical History (Updated 03/31/20 @ 16:36 by Jim Acuña MD) Atrial fibrillation (Acute) follows with Dr. Rapp---on eliquis Atrial flutter hx of Chronic anticoagulation (Chronic) Chronic obstructive pulmonary disease inhaler prn Chronic pain of left knee (Chronic) DJD Degenerative disc disease Diabetes mellitus, type 2 Diabetic foot ulcer associated with type 2 diabetes mellitus Diastolic CHF Hyperlipidemia Hypertension Hypothyroidism Lumbar radicular pain (Chronic) Myofascial pain (Chronic) Nausea and vomiting after administration of anesthetic agent Obesity On anticoagulant therapy eliquis daily Osteoarthritis Spinal stenosis Spinal stenosis of lumbar region (Chronic) TIA (transient ischemic attack) (Resolved 07/14/14) Surgical History History of cardioversion x2 History of carpal tunnel surgery of left wrist History of colonoscopy with polypectomy History of lumpectomy of right breast benign History of tooth extraction most teeth removed--full upper denture/partial lower History of total hysterectomy with bilateral salpingo-oophorectomy (BSO) Social History Preferred Language: Stateless Communication Ability: Effective 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 Beliefs That Will Affect Care: None Current Living Situation: Family current occupational status: retired Feels Safe at Home: Yes Smoking Status: Former smoker Tobacco Type: e-cigarettes ; Second Hand Exposure: No ; Hx Alcohol Use: No Hx Substance Use: No Allergies Allergies Allergy/AdvReac Type Severity Reaction Status Date / Time amoxicillin Allergy Severe SOB, RASH Verified 03/31/20 17:10 Penicillins Allergy Severe SOB, RASH Verified 03/31/20 17:10 clarithromycin Allergy Intermediate "feels Verified 03/31/20 17:10 like flying high" clindamycin Allergy Intermediate "feels Verified 03/31/20 17:10 like flying high" fluconazole Allergy Intermediate "feels Verified 03/31/20 17:10 like flying high" sulfamethoxazole Allergy Intermediate "feels Verified 03/31/20 17:10 like flying high" trimethoprim Allergy Intermediate "feels Verified 03/31/20 17:10 like flying high" Bactrim Allergy Unknown UNKNOWN Verified 02/21/18 10:32 codeine AdvReac Mild ITCHING, Verified 03/31/20 17:10 NAUSEA Home Meds Home Medications Medication Instructions Recorded Confirmed aspirin [Aspirin Low Dose] 81 mg PO QAM #0 12/28/11 03/31/20 meclizine 12.5 mg PO TID PRN 10 Days #30 tab 09/26/16 03/31/20 amiodarone 200 mg tablet 200 mg PO QAM tab 06/05/19 03/31/20 insulin aspart U-100 100 unit/mL 18 units SUBCUT DAILYBB ml 12/01/19 03/31/20 subcutaneous solution cyanocobalamin (vitamin B-12) 1,000 mcg PO DAILY 03/24/20 03/31/20 1,000 mcg tablet,extended release insulin aspart U-100 [Novolog 20 unit SUBCUT BID 03/31/20 03/31/20 U-100 Insulin aspart] multivitamin with folic acid 1 tab PO DAILY 03/31/20 03/31/20 Previous Rx's Medication Instructions Recorded magnesium chloride 64 mg 64 mg PO BID #90 tab 09/12/19 (magnesium chloride) tablet,delayed release triamcinolone acetonide 0.1 % 1 appln TOP DAILY #80 gm 10/29/19 topical cream irbesartan 300 mg tablet 300 mg PO QAM #30 tab 11/05/19 albuterol sulfate 90 mcg/actuation 2 puff INHALATION Q6H PRN #18 gm 11/19/19 aerosol inhaler atorvastatin 40 mg tablet 40 mg PO QAM #30 tab 11/27/19 levothyroxine 50 mcg tablet 50 mcg PO DAILY #30 tab 11/27/19 OneTouch Ultra Blue Test Strip #500 ea NS 12/01/19 torsemide 20 mg tablet 40 mg PO BID #120 tab 12/01/19 insulin syringe-needle U-100 1 mL #200 ea 12/04/19 31 gauge x 03/06" ezetimibe 10 mg tablet 10 mg PO QAM #90 tab 02/17/20 ferrous sulfate 325 mg (65 mg 325 mg PO DAILY #90 tab 02/17/20 iron) tablet apixaban 5 mg tablet 5 mg PO Q12H #60 tab 02/20/20 Lantus U-100 Insulin 100 unit/mL 70 units SQ DAILY #70 ml NS 03/11/20 subcutaneous solution metoprolol tartrate 100 mg tablet 100 mg PO BID #60 tab 03/16/20 pantoprazole 40 mg tablet,delayed 40 mg PO DAILY #30 tab 03/23/20 release calcitriol 0.25 mcg capsule 0.25 mcg PO UD #45 cap 03/24/20 cephalexin 500 mg capsule 500 mg PO TID #21 cap 03/24/20 Results & Data (ED) Vital Signs Vital Signs - 24 hr 03/31/20 15:06 Temperature 36.8 C Temperature Source Oral Pulse Rate 122 H Respiratory Rate 18 Respiratory Effort / Characteristics Non-Labored Respiratory Depth Normal Blood Pressure 128/87 Blood Pressure Mean 100 Pulse Oximetry 91 Oxygen Delivery Method Room Air Sepsis Recent Fever Within 48 Hours No Sepsis New/Unexplained Change in Mental Status No Sepsis Action Taken by Nursing No Action Required Laboratory Data Result diagrams: 03/31/20 17:00 03/31/20 17:00 Lab Results 03/31/20 03/31/20 03/31/20 Range/Units 17:00 17:00 17:00 WBC 9.18 (4.8-10.8) K/uL RBC 4.69 (4.2-5.4) M/uL Hgb 14.1 (12.0-16.0) g/dL Hct 46.8 (37-47) % MCV 99.8 (80-100) fL MCH 30.1 (25-34) pg MCHC 30.1 L (32-36) g/dL RDW Std Deviation 57.7 H (36.4-46.3) fL RDW Coeff of Shannan 16.1 H (11.5-14.5) % Plt Count 250 (130-400) K/uL MPV 10.1 (7.4-10.4) fL Immature Gran % (Auto) 0.4 % Neut % (Auto) 69.0 % Lymph % (Auto) 21.0 % [place] % (Auto) 7.1 % Eos % (Auto) 2.2 % Baso % (Auto) 0.3 % Immature Gran # (Auto) 0.04 H (0.00-0.02) K/uL Neut # (Auto) 6.33 (1.4-6.5) K/uL Lymph # (Auto) 1.93 (1.2-3.4) K/uL [place] # (Auto) 0.65 H (0.11-0.59) K/uL Eos # (Auto) 0.20 (0-0.5) K/uL Baso # (Auto) 0.03 (0-0.2) K/uL PT 11.2 (9.0-12.0) Seconds INR 1.1 (0.9-1.1) APTT 27.5 (21.0-31.0) Seconds PTT Ratio 1.0 Sodium 140 (136-145) mmol/L Potassium 4.3 (3.5-5.1) mmol/L Chloride 100 (98-107) mmol/L Carbon Dioxide 36 H (21-32) mmol/L Anion Gap 4.0 (3-11) BUN 26 H (7-18) mg/dl Creatinine 1.48 H (0.6-1.2) mg/dl Est Cr Clr Drug Dosing Not Reportable Est GFR ( Amer) 42.9 Est GFR (Non-Af Amer) 37.0 BUN/Creatinine Ratio 17.3 (10-20) Glucose 66 L (70-99) mg/dl POC Glucose (70-99) mg/dl Calcium 9.1 (8.5-10.1) mg/dl Magnesium 2.4 (1.8-2.4) mg/dl Total Bilirubin 0.4 (0.2-1) mg/dl AST 11 L (15-37) U/L ALT 15 (12-78) U/L Alkaline Phosphatase 100 (45-117) U/L Troponin I < 0.015 (0-0.045) ng/ml Total Protein 7.7 (6.4-8.2) gm/dl Albumin 2.9 L (3.4-5.0) gm/dl Globulin 4.8 H (2.5-4.0) gm/dl Albumin/Globulin Ratio 0.6 L (0.9-2) TSH 3.190 (0.300-4.500) uIu/ml 03/31/20 03/31/20 Range/Units 17:42 18:14 WBC (4.8-10.8) K/uL RBC (4.2-5.4) M/uL Hgb (12.0-16.0) g/dL Hct (37-47) % MCV (80-100) fL MCH (25-34) pg MCHC (32-36) g/dL RDW Std Deviation (36.4-46.3) fL RDW Coeff of Shannan (11.5-14.5) % Plt Count (130-400) K/uL MPV (7.4-10.4) fL Immature Gran % (Auto) % Neut % (Auto) % Lymph % (Auto) % [place] % (Auto) % Eos % (Auto) % Baso % (Auto) % Immature Gran # (Auto) (0.00-0.02) K/uL Neut # (Auto) (1.4-6.5) K/uL Lymph # (Auto) (1.2-3.4) K/uL [place] # (Auto) (0.11-0.59) K/uL Eos # (Auto) (0-0.5) K/uL Baso # (Auto) (0-0.2) K/uL PT (9.0-12.0) Seconds INR (0.9-1.1) APTT (21.0-31.0) Seconds PTT Ratio Sodium (136-145) mmol/L Potassium (3.5-5.1) mmol/L Chloride (98-107) mmol/L Carbon Dioxide (21-32) mmol/L Anion Gap (3-11) BUN (7-18) mg/dl Creatinine (0.6-1.2) mg/dl Est Cr Clr Drug Dosing Est GFR ( Amer) Est GFR (Non-Af Amer) BUN/Creatinine Ratio (10-20) Glucose (70-99) mg/dl POC Glucose 61 L* 89 (70-99) mg/dl Calcium (8.5-10.1) mg/dl Magnesium (1.8-2.4) mg/dl Total Bilirubin (0.2-1) mg/dl AST (15-37) U/L ALT (12-78) U/L Alkaline Phosphatase (45-117) U/L Troponin I (0-0.045) ng/ml Total Protein (6.4-8.2) gm/dl Albumin (3.4-5.0) gm/dl Globulin (2.5-4.0) gm/dl Albumin/Globulin Ratio (0.9-2) TSH (0.300-4.500) uIu/ml Administered Medications Sodium Chloride (Nss 1000ml) 1,000 mls @ 125 mls/hr IV .Q8H STA Stop: 04/01/20 00:32 Last Admin: 03/31/20 16:46 Dose: 125 mls/hr Documented by: [id number] Discontinued Medications Diltiazem HCl (Cardizem) 10 mg IV NOW STA Stop: 03/31/20 16:33 Last Admin: 03/31/20 16:40 Dose: 10 mg Documented by: [id number] Cosigned by: [id number] Discharge Plan Visit Data Chief Complaint: Cardiac Assessment Stated Complaint: AFIB,DOC REFERRED,ABNORMAL TESTING ED Provider: Jim Acuña Discharge Problem: Atrial flutter with rapid ventricular response Forms Stand Alone Forms: [facility] Prescriptions Prescriptions: No Action aspirin [Aspirin Low Dose] 81 mg Tablet,Delayed Release (Dr/Ec) 81 mg PO QAM Qty: 0 RF: 0 meclizine 12.5 mg Tablet 12.5 mg PO TID PRN (Reason: Dizziness) 10 Days Qty: 30 RF: 0 magnesium chloride 64 mg tablet,delayed release (DR/EC) 64 mg PO BID Qty: 90 RF: 3 irbesartan 300 mg tablet 300 mg PO QAM Qty: 30 RF: 5 albuterol sulfate 90 mcg/actuation HFA aerosol inhaler 2 puff INHALATION Q6H PRN (Reason: Shortness Of Breath) Qty: 18 RF: 6 atorvastatin [Lipitor] 40 mg tablet 40 mg PO QAM Qty: 30 RF: 5 levothyroxine 50 mcg tablet 50 mcg PO DAILY Qty: 30 RF: 11 (DME) insulin syringe-needle U-100 [BD Insulin Syringe Ultra-Fine] 1 mL 31 gauge x 5/16 syringe See Rx Instructions [id number] .MEDSUPPLY Qty: 200 RF: 5 ezetimibe 10 mg tablet 10 mg PO QAM Qty: 90 RF: 3 ferrous sulfate 325 mg (65 mg iron) tablet 325 mg PO DAILY Qty: 90 RF: 3 apixaban 5 mg tablet 5 mg PO Q12H Qty: 60 RF: 5 Lantus U-100 Insulin 100 unit/mL solution 70 units SQ DAILY Qty: 70 RF: 3 metoprolol tartrate 100 mg tablet 100 mg PO BID Qty: 60 RF: 11 pantoprazole [Protonix] 40 mg tablet,delayed release (DR/EC) 40 mg PO DAILY Qty: 30 RF: 5 calcitriol 0.25 mcg capsule 0.25 mcg PO UD Qty: 45 RF: 3 torsemide 20 mg tablet 40 mg PO BID Qty: 120 RF: 4 triamcinolone acetonide 0.1 % cream 1 appln TOP DAILY Qty: 80 RF: 1 cephalexin 500 mg capsule 500 mg PO TID Qty: 21 RF: 1 cyanocobalamin (vitamin B-12) 1,000 mcg tablet extended release 1,000 mcg PO DAILY RF: 0 Novolog U-100 Insulin aspart 100 unit/mL solution 18 units SUBCUT DAILYBB RF: 0 (DME) OneTouch Ultra Blue Test Strip Strip See Dose Instructions .ROUTE .MEDSUPPLY Qty: 500 RF: 3 amiodarone 200 mg tablet 200 mg PO QAM RF: 0 multivitamin with folic acid 400 mcg Tablet 1 tab PO DAILY RF: 0 insulin aspart U-100 [Novolog U-100 Insulin aspart] 100 unit/mL solution 20 unit subcut BID RF: 0
[2020-03-31 17:08] LABS: Basophils # (auto) 0.03 K/uL (0-0.2); Basophils % (auto) 0.3 %; Eosinophils % (auto) 2.2 %; Hematocrit (blood only) 46.8 % (37-47); Hemoglobin 14.1 g/dL (12.0-16.0); Immature Granulocytes # (auto) 0.04 K/uL (0.00-0.02); Immature Granulocytes % (auto) 0.4 %; Lymphocytes # (auto) 1.93 K/uL (1.2-3.4); Mean Corpuscular Hemoglobin 30.1 pg (25-34); Mean Corpuscular Hgb Conc 30.1 g/dL (32-36); Mean Corpuscular Volume 99.8 fL (80-100); Mean Platelet Volume 10.1 fL (7.4-10.4); Monocytes # (auto) 0.65 K/uL (0.11-0.59); Monocytes % (auto) 7.1 %; Neutrophils # (auto) 6.33 K/uL (1.4-6.5); Platelet Count 250 K/uL (130-400); RDW Coefficient of Variation 16.1 % (11.5-14.5); RDW Standard Deviation 57.7 fL (36.4-46.3); Red Blood Count 4.69 M/uL (4.2-5.4); White Blood Count 9.18 K/uL (4.8-10.8)
[2020-03-31 17:18] LABS: INR 1.1 (0.9-1.1); Partial Thromboplastin Time 27.5 Seconds (21.0-31.0); Prothrombin Time 11.2 Seconds (9.0-12.0)
--- NOTE | 2020-03-31 17:22 | XRay Report ---
XR chest 1V portable CLINICAL HISTORY: rapid a flutter COMPARISON STUDY: 12/28/2018 FINDINGS: The heart is enlarged. There is suspected pulmonary venous hypertension. There is no rashmi edema. There is no focal pulmonary consolidation. There are no pleural effusions.[ IMPRESSION: Cardiomegaly. No evidence of focal pulmonary consolidation. Possible mild pulmonary venou s hypertension. ACT 112: Negative or not required by law. Electronically signed by: Kobe Carson M.D. 03/31/2020 5:20 PM
[2020-03-31 17:28] LABS: Alanine Aminotransferase 15 U/L (12-78); Albumin Level 2.9 gm/dl (3.4-5.0); Aspartate Aminotransferase 11 U/L (15-37); BUN Creatinine Ratio 17.3 (10-20); Blood Urea Nitrogen 26 mg/dl (7-18); Calcium 9.1 mg/dl (8.5-10.1); Carbon Dioxide 36 mmol/L (21-32); Chloride 100 mmol/L (98-107); Est GFR (African American) 42.9; Glucose 66 mg/dl (70-99); Magnesium 2.4 mg/dl (1.8-2.4); Potassium 4.3 mmol/L (3.5-5.1); Sodium 140 mmol/L (136-145)
[2020-03-31 17:38] LABS: Albumin Globulin Ratio 0.6 (0.9-2); Alkaline Phosphatase 100 U/L (45-117); Bilirubin,Total 0.4 mg/dl (0.2-1); Globulin 4.8 gm/dl (2.5-4.0); Total Protein 7.7 gm/dl (6.4-8.2); Troponin I < 0.015 ng/ml (0-0.045)
--- NOTE | 2020-03-31 18:57 | History & Physical Report ---
Date of Service March 31, 2020 Assessment & Plan (1) Atrial flutter with rapid ventricular response: Patient asymptomatic other than some fatigue for the past 2 weeks. Picked up incidentally in outpatient office. Not in heart failure despite rate. Plan as per Dr Schreiber's discussion with ER, no excessive use of rate controlling medication overnight, plan to cardiovert in AM. NPO after midnight. Consult cardiology (2) Hypothyroidism: TSH WNL. Continue levothyroxine 50 mcg PO daily. (3) Tooth pain: Continue outpatient keflex pending dentistry appointment. Patient to call office tomorrow for further advice on this since she will miss her appointment due to admission. 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 flutter with rapid rate Primary Care Provider: Jimbo Srivastava MD Iveth Perkins is a 64 year old female who presents to the ER from her cardiolgist's office after a routine appointment noted she was tachycardic and subsequent EKG showed atrial flutter with rapid ventricular rate. She reports in hindsight feeling just very fatigued for the last 2 weeks but denies any chest pain, shortness of breath, palpitations, presyncope, syncope, orthopnea or PND. She has known paroxysmal atrial fibrillation and is already on anticoagulation. She received 10mg IV diltiazem in ER. Her case was discussed between Dr Acuña and Dr Schreiber and recommended no excessive use of rate controlling medications, only if becoming symptomatic or extremely tachycardic in conjunction with cardiology. Plan is for cardioversion tomorrow. Allergies Allergy/AdvReac Type Severity Reaction Status Date / Time amoxicillin Allergy Severe SOB, RASH Verified 03/31/20 17:10 Penicillins Allergy Severe SOB, RASH Verified 03/31/20 17:10 clarithromycin Allergy Intermediate "feels Verified 03/31/20 17:10 like flying high" clindamycin Allergy Intermediate "feels Verified 03/31/20 17:10 like flying high" fluconazole Allergy Intermediate "feels Verified 03/31/20 17:10 like flying high" sulfamethoxazole Allergy Intermediate "feels Verified 03/31/20 17:10 like flying high" trimethoprim Allergy Intermediate "feels Verified 03/31/20 17:10 like flying high" Bactrim Allergy Unknown UNKNOWN Verified 02/21/18 10:32 codeine AdvReac Mild ITCHING, Verified 03/31/20 17:10 NAUSEA Home Medications Home Medications Medication Instructions Recorded Confirmed Type aspirin [Aspirin Low Dose] 81 mg PO QAM #0 12/28/11 03/31/20 History meclizine 12.5 mg PO TID PRN 10 Days #30 tab 09/26/16 03/31/20 History amiodarone 200 mg tablet 200 mg PO QAM tab 06/05/19 03/31/20 History magnesium chloride 64 mg 64 mg PO BID #90 tab 09/12/19 03/31/20 Rx (magnesium chloride) tablet,delayed release triamcinolone acetonide 0.1 % 1 appln TOP DAILY #80 gm 10/29/19 03/31/20 Rx topical cream irbesartan 300 mg tablet 300 mg PO QAM #30 tab 11/05/19 03/31/20 Rx albuterol sulfate 90 mcg/actuation 2 puff INHALATION Q6H PRN #18 gm 11/19/19 03/31/20 Rx aerosol inhaler atorvastatin 40 mg tablet 40 mg PO QAM #30 tab 11/27/19 03/31/20 Rx levothyroxine 50 mcg tablet 50 mcg PO DAILY #30 tab 11/27/19 03/31/20 Rx OneTouch Ultra Blue Test Strip #500 ea NS 12/01/19 03/24/20 Rx insulin aspart U-100 100 unit/mL 18 units SUBCUT DAILYBB ml 12/01/19 03/31/20 History subcutaneous solution torsemide 20 mg tablet 40 mg PO BID #120 tab 12/01/19 03/31/20 Rx insulin syringe-needle U-100 1 mL #200 ea 12/04/19 03/24/20 Rx 31 gauge x 16" ezetimibe 10 mg tablet 10 mg PO QAM #90 tab 02/17/20 03/31/20 Rx ferrous sulfate 325 mg (65 mg 325 mg PO DAILY #90 tab 02/17/20 03/31/20 Rx iron) tablet apixaban 5 mg tablet 5 mg PO Q12H #60 tab 02/20/20 03/31/20 Rx Lantus U-100 Insulin 100 unit/mL 70 units SQ DAILY #70 ml NS 03/11/20 03/31/20 Rx subcutaneous solution metoprolol tartrate 100 mg tablet 100 mg PO BID #60 tab 03/16/20 03/31/20 Rx pantoprazole 40 mg tablet,delayed 40 mg PO DAILY #30 tab 03/23/20 03/31/20 Rx release calcitriol 0.25 mcg capsule 0.25 mcg PO UD #45 cap 03/24/20 03/31/20 Rx cephalexin 500 mg capsule 500 mg PO TID #21 cap 03/24/20 03/31/20 Rx cyanocobalamin (vitamin B-12) 1,000 mcg PO DAILY 03/24/20 03/31/20 History 1,000 mcg tablet,extended release insulin aspart U-100 [Novolog 20 unit SUBCUT BID 03/31/20 03/31/20 History U-100 Insulin aspart] multivitamin with folic acid 1 tab PO DAILY 03/31/20 03/31/20 History Past Med/Surg History Medical History (Updated 04/01/20 @ 07:35 by Leonardo Mcgill MD) Atrial fibrillation (Acute) follows with Dr. Rapp---on eliquis Atrial flutter hx of Chronic anticoagulation (Chronic) Chronic obstructive pulmonary disease inhaler prn Chronic pain of left knee (Chronic) DJD Degenerative disc disease Diabetes mellitus, type 2 Diabetic foot ulcer associated with type 2 diabetes mellitus Diastolic CHF Hyperlipidemia Hypertension Hypothyroidism Lumbar radicular pain (Chronic) Myofascial pain (Chronic) Nausea and vomiting after administration of anesthetic agent Obesity On anticoagulant therapy eliquis daily Osteoarthritis Spinal stenosis Spinal stenosis of lumbar region (Chronic) TIA (transient ischemic attack) (Resolved 07/14/14) Surgical History History of cardioversion x2 History of carpal tunnel surgery of left wrist History of colonoscopy with polypectomy History of lumpectomy of right breast benign History of tooth extraction most teeth removed--full upper denture/partial lower History of total hysterectomy with bilateral salpingo-oophorectomy (BSO) Social History Preferred Language: Singaporean Communication Ability: Effective 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 Beliefs That Will Affect Care: None Current Living Situation: Family current occupational status: retired Other Information That Helps Us Care for You: No Feels Safe at Home: Yes Safety Concerns: Feels Safe At This Time Smoking Status: Former smoker Tobacco Type: e-cigarettes ; Second Hand Exposure: No ; Hx Alcohol Use: Yes Alcohol type: beer and wine Hx Substance Use: No Review of Systems Review of Systems: All systems reviewed & are unremarkable except as noted in HPI & below Physical Exam Constitutional: well developed and + morbidly obese; + not well nourished and no acute distress Eyes: PERRL, conjunctivae normal, anicteric sclerae ENMT: external ear and nose normal, oropharynx normal Neck: trachea midline, no thyromegaly Respiratory: normal respiratory effort; no respiratory distress A uscultation: + diminished lung sounds (throughout suspect secondary to body habitus); no crackles and no wheezes Cardiovascular: Rate/Rhythm: regular rhythm and + tachycardic Heart Sounds: no murmur Vessels: no JVD Extremities: normal capillary refill and + pedal edema (1+ to knees b/l); no calf tenderness Gastrointestinal (Abdomen): normal bowel sounds, soft, nontender, no hepatosplenomegaly Musculoskeletal: no cyanosis or clubbing, extremities motor strength 5/5 Skin: no rashes, warm and dry Neurologic: moves all extremities and awake; not confused Psychiatric: A+Ox3, euthymic affect Results & Data Results & Data ([facility]) Vital Signs (Past 12 Hours) Vital Signs Temp Pulse Resp BP Pulse Ox 03/31/20 18:24 89 L 03/31/20 18:12 121 H 20 125/92 94 03/31/20 17:30 120 H 23 137/102 H 90 03/31/20 17:15 121 H 22 140/106 H 90 03/31/20 17:00 121 H 21 124/95 92 03/31/20 16:46 120 H 19 127/79 92 03/31/20 16:23 120 H 32 H 139/93 95 03/31/20 15:06 36.8 C 122 H 18 128/87 91 Diagnostic Findings XR chest 1V portable IMPRESSION: Cardiomegaly. No evidence of focal pulmonary consolidation. Possible mild pulmonary venous hypertension. ECG Indication: tachycardia Rate (beats per minute): 120 Rhythm: atrial flutter Findings: + prolonged QT (QTc 522ms) Comparison ECG Date: from (07/20/2019) Change: the following changes noted (now in a. flutter from sinus rhythm) Code Status & VTE Plan Code Status All treatment outside of a cardiac arrest VTE Prophylaxis Plan VTE Prophylaxis will be ordered: Yes PG Care Time/CCT Total # of Minutes Spent Total Time Spent with Patient: Total time spent is greater than 50% in coordination of care (as documented) at patient's floor/unit and/or counseling patient: Coding Level of Care Code 25986 OBS Care - Level 2 Diagnoses Atrial flutter with rapid ventricular response I48.92 Hypothyroidism E03.9 Tooth pain K08.89 Paroxysmal atrial fibrillation I48.0 Stage III chronic kidney disease N18.3 HTN (hypertension) I10 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
[2020-03-31] MEDS ORDERED: POLYETHYLENE (MIRALAX) 17 GM PACK PO PRN (20:32)
[2020-03-31] MEDS ORDERED: ONDANSETRON INJ 2 MG/ML 2 ML VIAL IV PRN (20:32)
[2020-03-31] MEDS ORDERED: ALUMINUM/MAGNESIUM SUSP 30 ML UDC PO PRN (20:32)
[2020-03-31] MEDS ORDERED: MAGNESIUM HYDROXIDE SUSP 30 ML UDC PO PRN (20:32)
[2020-03-31] MEDS ORDERED: ACETAMINOPHEN 325 MG TAB PO PRN (20:32)
[2020-03-31] MEDS ORDERED: MAGNESIUM CHLORIDE 64MG DELAYED REL TAB PO SCH (21:00)
[2020-03-31] MEDS ORDERED: PHARMACY GLYCEMIC MGMT CONSULT PRN (21:08)
[2020-03-31] MEDS ORDERED: PHARMACY GLYCEMIC MGMT CONSULT STA (21:59)
[2020-03-31] MEDS ORDERED: GLUCAGON FOR INJ 1 MG VIAL SQ PRN (22:00)
[2020-03-31] MEDS ORDERED: DEXTROSE 50% 50 ML SYRINGE IV PRN (22:00)
[2020-03-31] MEDS ORDERED: GLUCOSE 40% GEL 15 GM TUBE PO PRN (22:00)
[2020-03-31] MEDS ORDERED: GLUCOSE 10 TABS/TUBE PO PRN (22:00)
[2020-03-31] MEDS ORDERED: CARBOHYDRATES FOR HYPOGLYCEMIA PO PRN (22:00)
[2020-03-31] MEDS: cephALEXin 500 MG CAP PO SCH (22:18)
[2020-03-31] MEDS: TORSEMIDE 20 MG TAB PO SCH (22:18)
[2020-03-31] MEDS: APIXABAN 5 MG TABLET PO SCH (22:18)
--- NOTE | 2020-03-31 22:18 | Pharmacy Report ---
Pharmacy Glycemic Short Note 2 - Date of Service March 31, 2020 - Glycemic Short BSG Results (Last 24 hours): 03/31/20 03/31/20 03/31/20 17:00 17:42 18:14 Glucose 66 L POC Glucose 61 L* 89 OUTPATIENT ANTIDIABETIC REGIMEN: * Lantus 70 units Daily/Novolog 18 units DailyBB/Novolog 20 units BID ASSESSMENT: * Admitted for Atrial Flutter with RVR. Type 2 diabetes with kidney complications PLAN FOR INPATIENT GLYCEMIC CONTROL: * Hold outpatient oral diabetes medications * Basal insulin * Lantus - Patient had dose today (70 units 03/31/20). Will have glycemic H access and dose basal insulin based on overnight BSGs in am. * Bolus insulin * NovoLog per scale ACHS or Q6hrs while NPO * Goal Range: Low 120 mg/dL - High 160 mg/dL * Correction Factor: 15 mg/dL/unit * Nutritional / Prandial insulin per carb ratio of 1 unit per 5 grams CHO consumed PLAN FOR DISCHARGE: *
[2020-03-31] MEDS: INSULIN ASPART 100 UNITS/ML 3 ML PEN SC SCH (22:19)
[2020-03-31] MEDS: METOPROLOL TARTRATE 100 MG TAB PO SCH (22:19)
--- NOTE | 2020-04-01 06:09 | Electrocardiogram Report ---
Test Reason : Blood Pressure : / mmHG Vent. Rate : 120 BPM Atrial Rate : 240 BPM P-R Int : 000 ms QRS Dur : 074 ms QT Int : 370 ms P-R-T Axes : 093 059 098 degrees QTc Int : 522 ms Poor data quality, interpretation may be adversely affected Atrial flutter with 2:1 A-V conduction Nonspecific ST and T wave abnormality Prolonged QT Abnormal ECG When compared with ECG of 20-JUL-2019 13:04, Atrial flutter has replaced Sinus rhythm Confirmed by Mo Oviedo ([id number]) on 04/01/2020 6:09:34 AM Referred By: Confirmed By:Mo Oviedo
[2020-04-01] MEDS: INSULIN ASPART 100 UNITS/ML 3 ML PEN SC SCH ×2 (06:19→12:35)
[2020-04-01 07:34] LABS: Estimated Average Glucose 197 mg/dl; Hemoglobin A1C 8.5 % (4.5-5.6)
[2020-04-01] MEDS ORDERED: ASPIRIN 81 MG ECTAB PO SCH (09:00)
[2020-04-01] MEDS ORDERED: PANTOprazole 40 MG TAB PO SCH (09:00)
[2020-04-01] MEDS ORDERED: IRBESARTAN 150 MG TAB PO SCH (09:00)
[2020-04-01] MEDS ORDERED: FERROUS SULFATE 325 MG TAB PO SCH (09:00)
[2020-04-01] MEDS ORDERED: EZETIMIBE 10 MG TABLET PO SCH (09:00)
[2020-04-01] MEDS ORDERED: LEVOTHYROXINE SODIUM 50 MCG TABLET PO SCH (09:00)
[2020-04-01] MEDS ORDERED: CEROVITE ADV FORMULA TAB PO SCH (09:00)
[2020-04-01] MEDS ORDERED: INSULIN GLARGINE SOLOSTAR 100 UNITS/ML 3 ML PEN SC SCH (09:00)
[2020-04-01] MEDS ORDERED: CYANOCOBALAMIN 500 MCG TABLET (VITAMIN B-12) PO SCH (09:00)
[2020-04-01] MEDS ORDERED: ATORVASTATIN 40 MG TAB PO SCH (09:00)
[2020-04-01] MEDS ORDERED: AMIODARONE 200 MG TAB PO SCH (09:00)
[2020-04-01] MEDS: cephALEXin 500 MG CAP PO SCH (09:09)
[2020-04-01] MEDS: APIXABAN 5 MG TABLET PO SCH (09:09)
[2020-04-01] MEDS: METOPROLOL TARTRATE 100 MG TAB PO SCH (09:10)
--- NOTE | 2020-04-01 10:30 | Cardiology Consultation ---
Date of Consultation April 01, 2020 Assessment & Plan (1) Atrial flutter with rapid ventricular response: Patient relatively asymptomatic lapse and atrial flutter although previous difficulties with poor tolerance. Echocardiogram demonstrates preserved LV function. Patient remains on chronic anticoagulation as well as antiarrhythmic therapy with amiodarone Plan: Continue current medications with anticipated synchronized electrical cardioversion later today. Patient n.p.o. after midnight (2) Chronic diastolic CHF (congestive heart failure): Currently compensated by exam and chest x-ray (3) HTN (hypertension): (4) Obesity: History of Present Illness Reason for Consultation: Atrial flutter with elevated ventricular response Requesting Physician: Dr. Hamilton Attending Physician: Shivam Hamilton, DO History of Present Illness Patient is a 64-year-old female with ongoing issues which include 1. Paroxysmal A. fib flutter on chronic antiarrhythmic therapy with amiodarone 2. Hypertension with chronic diastolic heart failure 3. Hyperlipidemia 4. Obesity 5. Chronic renal insufficiency, stage III 6. Type 2 diabetes mellitus Patient admitted yesterday after presenting to cardiology appointment routine and was found to be in atrial flutter with elevated ventricular response rate. Patient was not specifically aware of the atrial flutter noted perhaps slightly increased dyspnea but not significantly worse than usual baseline. Denied chest pains dizziness or lightheadedness denied fevers chills or unexplained infections. No recent change in medications of significance except on Keflex for dental issue. No bleeding difficulties melena hematochezia dysuria hematuria appetite and weight have been generally stable she had's chronic stasis edema but no signs or symptoms of acute volume overload or retention per patient. Outpatient vital sign review did demonstrate increase in weight Notes no interruption in medications or anticoagulation Allergies Allergy/AdvReac Type Severity Reaction Status Date / Time amoxicillin Allergy Severe SOB, RASH Verified 03/31/20 17:10 Penicillins Allergy Severe SOB, RASH Verified 03/31/20 17:10 clarithromycin Allergy Intermediate "feels Verified 03/31/20 17:10 like flying high" clindamycin Allergy Intermediate "feels Verified 03/31/20 17:10 like flying high" fluconazole Allergy Intermediate "feels Verified 03/31/20 17:10 like flying high" sulfamethoxazole Allergy Intermediate "feels Verified 03/31/20 17:10 like flying high" trimethoprim Allergy Intermediate "feels Verified 03/31/20 17:10 like flying high" Bactrim Allergy Unknown UNKNOWN Verified 02/21/18 10:32 codeine AdvReac Mild ITCHING, Verified 03/31/20 17:10 NAUSEA Home Medications Home Medications Medication Instructions Recorded Confirmed Type aspirin [Aspirin Low Dose] 81 mg PO QAM #0 12/28/11 03/31/20 History meclizine 12.5 mg PO TID PRN 10 Days #30 tab 09/26/16 03/31/20 History amiodarone 200 mg tablet 200 mg PO QAM tab 06/05/19 03/31/20 History magnesium chloride 64 mg 64 mg PO BID #90 tab 09/12/19 03/31/20 Rx (magnesium chloride) tablet,delayed release triamcinolone acetonide 0.1 % 1 appln TOP DAILY #80 gm 10/29/19 03/31/20 Rx topical cream irbesartan 300 mg tablet 300 mg PO QAM #30 tab 11/05/19 03/31/20 Rx albuterol sulfate 90 mcg/actuation 2 puff INHALATION Q6H PRN #18 gm 11/19/19 03/31/20 Rx aerosol inhaler atorvastatin 40 mg tablet 40 mg PO QAM #30 tab 11/27/19 03/31/20 Rx levothyroxine 50 mcg tablet 50 mcg PO DAILY #30 tab 11/27/19 03/31/20 Rx OneTouch Ultra Blue Test Strip #500 ea NS 12/01/19 03/24/20 Rx insulin aspart U-100 100 unit/mL 18 units SUBCUT DAILYBB ml 12/01/19 03/31/20 History subcutaneous solution torsemide 20 mg tablet 40 mg PO BID #120 tab 12/01/19 03/31/20 Rx insulin syringe-needle U-100 1 mL #200 ea 12/04/19 03/24/20 Rx 31 gauge x 5/16" ezetimibe 10 mg tablet 10 mg PO QAM #90 tab 02/17/20 03/31/20 Rx ferrous sulfate 325 mg (65 mg 325 mg PO DAILY #90 tab 02/17/20 03/31/20 Rx iron) tablet apixaban 5 mg tablet 5 mg PO Q12H #60 tab 02/20/20 03/31/20 Rx Lantus U-100 Insulin 100 unit/mL 70 units SQ DAILY #70 ml NS 03/11/20 03/31/20 Rx subcutaneous solution metoprolol tartrate 100 mg tablet 100 mg PO BID #60 tab 03/16/20 03/31/20 Rx pantoprazole 40 mg tablet,delayed 40 mg PO DAILY #30 tab 03/23/20 03/31/20 Rx release calcitriol 0.25 mcg capsule 0.25 mcg PO UD #45 cap 03/24/20 03/31/20 Rx cephalexin 500 mg capsule 500 mg PO TID #21 cap 03/24/20 03/31/20 Rx cyanocobalamin (vitamin B-12) 1,000 mcg PO DAILY 03/24/20 03/31/20 History 1,000 mcg tablet,extended release insulin aspart U-100 [Novolog 20 unit SUBCUT BID 03/31/20 03/31/20 History U-100 Insulin aspart] multivitamin with folic acid 1 tab PO DAILY 03/31/20 03/31/20 History Patient History Medical History Atrial fibrillation (Acute) follows with Dr. Rapp---on eliquis Atrial flutter hx of Chronic anticoagulation (Chronic) Chronic obstructive pulmonary disease inhaler prn Chronic pain of left knee (Chronic) DJD Degenerative disc disease Diabetes mellitus, type 2 Diabetic foot ulcer associated with type 2 diabetes mellitus Diastolic CHF Hyperlipidemia Hypertension Hypothyroidism Lumbar radicular pain (Chronic) Myofascial pain (Chronic) Nausea and vomiting after administration of anesthetic agent Obesity On anticoagulant therapy eliquis daily Osteoarthritis Spinal stenosis Spinal stenosis of lumbar region (Chronic) TIA (transient ischemic attack) (Resolved 07/14/14) Surgical History History of cardioversion x2 History of carpal tunnel surgery of left wrist History of colonoscopy with polypectomy History of lumpectomy of right breast benign History of tooth extraction most teeth removed--full upper denture/partial lower History of total hysterectomy with bilateral salpingo-oophorectomy (BSO) Family History Sister Family history of reaction to anesthesia nausea/vomiting Hypothyroidism Father Family history of reaction to anesthesia nausea/vomiting Family hx colonic polyps Hypertension Mother Diabetes Hypertension Denies family history of Breast cancer Colorectal cancer Social History Preferred Language: Maori Communication Ability: Effective 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 Beliefs That Will Affect Care: None Current Living Situation: Family current occupational status: retired Other Information That Helps Us Care for You: No Feels Safe at Home: Yes Safety Concerns: Feels Safe At This Time Smoking Status: Former smoker Tobacco Type: e-cigarettes ; Second Hand Exposure: No ; Hx Alcohol Use: Yes Alcohol type: beer and wine Hx Substance Use: No Review of Systems Review of Systems: All systems reviewed & are unremarkable except as noted in HPI & below Physical Exam Constitutional: + morbidly obese; no acute distress Eyes: PERRL, conjunctivae normal, anicteric sclerae ENMT: external ear and nose normal, oropharynx normal Edentulous with dentures in place Neck: + thick neck Respiratory: Auscultation: + diminished lung sounds (But clear) Cardiovascular: Rate/Rhythm: + irregularly irregular Heart Sounds: normal S1 and normal S2; no murmur Vessels: normal carotid upstroke; no JVD and no carotid bruit Extremities: + edema (1+ with chronic stasis changes/induration) Gastrointestinal (Abdomen): normal bowel sounds, soft, nontender, no hepatosplenomegaly Musculoskeletal: no cyanosis or clubbing, extremities motor strength 5/5 Neurologic: PERRL, EOMI, accommodation nl, no face palsy, no dysarthria Psychiatric: A+Ox3, euthymic affect Results & Data ([facility]) Vital Signs (Past 12 Hours) Vital Signs Temp Pulse Resp BP Pulse Ox 04/01/20 03:16 37.2 C 120 H 16 109/64 91 03/31/20 23:16 36.6 C 123 H 22 126/83 92 Laboratory Results Laboratory Results - last 24 hr 03/31/20 03/31/20 03/31/20 17:00 17:00 17:00 WBC 9.18 RBC 4.69 Hgb 14.1 Hct 46.8 MCV 99.8 MCH 30.1 MCHC 30.1 L RDW Std Deviation 57.7 H RDW Coeff of Shannan 16.1 H Plt Count 250 MPV 10.1 Immature Gran % (Auto) 0.4 Neut % (Auto) 69.0 Lymph % (Auto) 21.0 [place] % (Auto) 7.1 Eos % (Auto) 2.2 Baso % (Auto) 0.3 Immature Gran # (Auto) 0.04 H Neut # (Auto) 6.33 Lymph # (Auto) 1.93 [place] # (Auto) 0.65 H Eos # (Auto) 0.20 Baso # (Auto) 0.03 PT 11.2 INR 1.1 APTT 27.5 PTT Ratio 1.0 Sodium 140 Potassium 4.3 Chloride 100 Carbon Dioxide 36 H Anion Gap 4.0 BUN 26 H Creatinine 1.48 H Est Cr Clr Drug Dosing Not Reportable Est GFR ( Amer) 42.9 Est GFR (Non-Af Amer) 37.0 BUN/Creatinine Ratio 17.3 Glucose 66 L POC Glucose Estimat Average Glucose Hemoglobin A1c Calcium 9.1 Magnesium 2.4 Total Bilirubin 0.4 AST 11 L ALT 15 Alkaline Phosphatase 100 Troponin I < 0.015 Total Protein 7.7 Albumin 2.9 L Globulin 4.8 H Albumin/Globulin Ratio 0.6 L TSH 3.190 03/31/20 03/31/20 03/31/20 17:42 18:14 22:13 WBC RBC Hgb Hct MCV MCH MCHC RDW Std Deviation RDW Coeff of Shannan Plt Count MPV Immature Gran % (Auto) Neut % (Auto) Lymph % (Auto) [place] % (Auto) Eos % (Auto) Baso % (Auto) Immature Gran # (Auto) Neut # (Auto) Lymph # (Auto) [place] # (Auto) Eos # (Auto) Baso # (Auto) PT INR APTT PTT Ratio Sodium Potassium Chloride Carbon Dioxide Anion Gap BUN Creatinine Est Cr Clr Drug Dosing Est GFR ( Amer) Est GFR (Non-Af Amer) BUN/Creatinine Ratio Glucose POC Glucose 61 L* 89 160 H Estimat Average Glucose Hemoglobin A1c Calcium Magnesium Total Bilirubin AST ALT Alkaline Phosphatase Troponin I Total Protein Albumin Globulin Albumin/Globulin Ratio TSH 04/01/20 04/01/20 04/01/20 06:18 06:58 07:07 WBC RBC Hgb Hct MCV MCH MCHC RDW Std Deviation RDW Coeff of Shannan Plt Count MPV Immature Gran % (Auto) Neut % (Auto) Lymph % (Auto) [place] % (Auto) Eos % (Auto) Baso % (Auto) Immature Gran # (Auto) Neut # (Auto) Lymph # (Auto) [place] # (Auto) Eos # (Auto) Baso # (Auto) PT INR APTT PTT Ratio Sodium Potassium Chloride Carbon Dioxide Anion Gap BUN Creatinine Est Cr Clr Drug Dosing Est GFR ( Amer) Est GFR (Non-Af Amer) BUN/Creatinine Ratio Glucose POC Glucose 109 H 112 H Estimat Average Glucose 197 Hemoglobin A1c 8.5 H Calcium Magnesium Total Bilirubin AST ALT Alkaline Phosphatase Troponin I Total Protein Albumin Globulin Albumin/Globulin Ratio TSH
--- NOTE | 2020-04-01 11:32 | Pharmacy Report ---
Pharmacy Glycemic Short Note 2 - Date of Service April 01, 2020 - Glycemic Short BSG Results (Last 24 hours): 03/31/20 03/31/20 03/31/20 17:00 17:42 18:14 Glucose 66 L POC Glucose 61 L* 89 03/31/20 04/01/20 04/01/20 22:13 06:18 06:58 Glucose POC Glucose 160 H 109 H 112 H 04/01/20 11:23 Glucose POC Glucose 96 OUTPATIENT ANTIDIABETIC REGIMEN: * Lantus 70 units Daily * Novolog 18 units with breakfast, Novolog 20 units with lunch and dinner * A1c = 8.5% ASSESSMENT: * Iveth is a 64 yo T2DM admitted for Atrial Flutter with RVR with plans for cardioversion today. * Hypoglycemia on admission. Unknown cause. Patient reports taking home dose of Lantus 70 units yesterday morning. * Fasting BSG at goal; 109 mg/dL. Home dose of Lantus appears to be appropriate. Will decrease dose for today based on NPO status. May add scale later in the day incase BSG starts trending upward. * Novolog CF/CR based on home usage of ~128 units/day. PLAN FOR INPATIENT GLYCEMIC CONTROL: * Hold outpatient oral diabetes medications * Basal insulin * Lantus 50 units SQ this morning (while NPO) * Likely resume 70 units on 04/02 * Bolus insulin * NovoLog per scale ACHS or Q6hrs while NPO * Goal Range: Low 120 mg/dL - High 160 mg/dL * Correction Factor: 15 mg/dL/unit * Nutritional / Prandial insulin per carb ratio of 1 unit per 5 grams CHO consumed
--- NOTE | 2020-04-01 11:52 | Anesthesiology Consultation ---
Date of Service April 01, 2020 Assessment & Plan (1) Encounter for pre-operative examination: Chart Review Chart Review: Acceptable Risk for Surgery History Surgery Operation Date: 04/01/20 13:00 Proposed Procedures p Cardioversion - Matt Schreiber MD Height/Weight Height: 5 ft 5 in Weight: 149.1 kg Allergies Allergy/AdvReac Type Severity Reaction Status Date / Time amoxicillin Allergy Severe SOB, RASH Verified 03/31/20 17:10 Penicillins Allergy Severe SOB, RASH Verified 03/31/20 17:10 clarithromycin Allergy Intermediate "feels Verified 03/31/20 17:10 like flying high" clindamycin Allergy Intermediate "feels Verified 03/31/20 17:10 like flying high" fluconazole Allergy Intermediate "feels Verified 03/31/20 17:10 like flying high" sulfamethoxazole Allergy Intermediate "feels Verified 03/31/20 17:10 like flying high" trimethoprim Allergy Intermediate "feels Verified 03/31/20 17:10 like flying high" Bactrim Allergy Unknown UNKNOWN Verified 02/21/18 10:32 codeine AdvReac Mild ITCHING, Verified 03/31/20 17:10 NAUSEA Medications Home Medications Medication Instructions Recorded Confirmed Last Taken aspirin [Aspirin Low Dose] 81 mg PO QAM #0 12/28/11 03/31/20 03/31/20 09:00 meclizine 12.5 mg PO TID PRN 10 Days #30 tab 09/26/16 03/31/20 07/20/19 amiodarone 200 mg tablet 200 mg PO QAM tab 06/05/19 03/31/20 03/31/20 09:00 magnesium chloride 64 mg 64 mg PO BID #90 tab 09/12/19 03/31/20 Unknown (magnesium chloride) tablet,delayed release triamcinolone acetonide 0.1 % 1 appln TOP DAILY #80 gm 10/29/19 03/31/20 Unknown topical cream irbesartan 300 mg tablet 300 mg PO QAM #30 tab 11/05/19 03/31/20 03/31/20 09:00 albuterol sulfate 90 mcg/actuation 2 puff INHALATION Q6H PRN #18 gm 11/19/19 03/31/20 Unknown aerosol inhaler atorvastatin 40 mg tablet 40 mg PO QAM #30 tab 11/27/19 03/31/2020 09:00 levothyroxine 50 mcg tablet 50 mcg PO DAILY #30 tab 11/27/19 03/31/20 03/31/20 09:00 OneTouch Ultra Blue Test Strip #500 ea NS 12/01/19 03/24/20 Unknown insulin aspart U-100 100 unit/mL 18 units SUBCUT DAILYBB ml 12/01/19 03/31/20 Unknown subcutaneous solution torsemide 20 mg tablet 40 mg PO BID #120 tab 12/01/19 03/31/20 03/31/20 09:00 insulin syringe-needle U-100 1 mL #200 ea 12/04/19 03/24/20 Unknown 31 gauge x 5/16" ezetimibe 10 mg tablet 10 mg PO QAM #90 tab 02/17/20 03/31/20 03/31/20 09:00 ferrous sulfate 325 mg (65 mg 325 mg PO DAILY #90 tab 02/17/20 03/31/20 Unknown iron) tablet apixaban 5 mg tablet 5 mg PO Q12H #60 tab 02/20/20 03/31/20 03/31/20 09:00 Lantus U-100 Insulin 100 unit/mL 70 units SQ DAILY #70 ml NS 03/11/20 03/31/20 03/31/20 09:00 subcutaneous solution metoprolol tartrate 100 mg tablet 100 mg PO BID #60 tab 03/16/20 03/31/20 03/31/20 09:00 pantoprazole 40 mg tablet,delayed 40 mg PO DAILY #30 tab 03/23/20 03/31/20 03/31/20 09:00 release calcitriol 0.25 mcg capsule 0.25 mcg PO UD #45 cap 03/24/20 03/31/20 Unknown cephalexin 500 mg capsule 500 mg PO TID #21 cap 03/24/20 03/31/20 03/31/20 13:00 cyanocobalamin (vitamin B-12) 1,000 mcg PO DAILY 03/24/20 03/31/20 Unknown 1,000 mcg tablet,extended release insulin aspart U-100 [Novolog 20 unit SUBCUT BID 03/31/20 03/31/20 Unknown U-100 Insulin aspart] multivitamin with folic acid 1 tab PO DAILY 03/31/20 03/31/20 Unknown Active Medications Generic Name Dose Route Start Last Admin Trade Name Freq PRN Reason Stop Dose Admin Amiodarone HCl 200 mg 04/01/20 09:00 04/01/20 09:11 Cordarone PO 05/01/20 08:59 200 mg QAM [place] Administration Apixaban 5 mg 03/31/20 21:00 04/01/20 09:09 Eliquis PO 04/30/20 20:59 5 mg BID [place] Administration Aspirin 81 mg 04/01/20 09:00 04/01/20 09:10 Ecotrin Ectab PO 05/01/20 08:59 81 mg QAM [place] Administration Cephalexin HCl 500 mg 03/31/20 21:00 04/01/20 09:09 Keflex PO 04/10/20 20:59 500 mg TID [place] Administration Insulin Aspart 0 units 04/01/20 00:00 04/01/20 06:19 Novolog Flexpen SC 05/01/20 00:00 Not Given Q6 [place] Irbesartan 300 mg 04/01/20 09:00 04/01/20 09:11 Avapro PO 05/01/20 08:59 300 mg QAM [place] Administration Magnesium Chloride 64 mg 03/31/20 21:00 03/31/20 22:18 Slow-Mag PO 04/30/20 20:59 64 mg BID [place] Administration Metoprolol Tartrate 100 mg 03/31/20 21:00 04/01/20 09:10 Lopressor PO 04/30/20 20:59 100 mg BID [place] Administration Pantoprazole Sodium 40 mg 04/01/20 09:00 04/01/20 09:10 Protonix PO 05/01/20 08:59 40 mg DAILY [place] Administration Torsemide 40 mg 03/31/20 21:00 03/31/20 22:18 Demadex PO 04/30/20 20:59 40 mg [id number] [place] Administration Past Medical History Medical History Atrial fibrillation (Acute) follows with Dr. Rapp---on eliquis Atrial flutter hx of Chronic anticoagulation (Chronic) Chronic obstructive pulmonary disease inhaler prn Chronic pain of left knee (Chronic) DJD Degenerative disc disease Diabetes mellitus, type 2 Diabetic foot ulcer associated with type 2 diabetes mellitus Diastolic CHF Hyperlipidemia Hypertension Hypothyroidism Lumbar radicular pain (Chronic) Myofascial pain (Chronic) Nausea and vomiting after administration of anesthetic agent Obesity On anticoagulant therapy eliquis daily Osteoarthritis Spinal stenosis Spinal stenosis of lumbar region (Chronic) TIA (transient ischemic attack) (Resolved 07/14/14) Past Family History Family History Sister Family history of reaction to anesthesia nausea/vomiting Hypothyroidism Father Family history of reaction to anesthesia nausea/vomiting Family hx colonic polyps Hypertension Mother Diabetes Hypertension Denies family history of Breast cancer Colorectal cancer Past Surgical History Surgical History History of cardioversion x2 History of carpal tunnel surgery of left wrist History of colonoscopy with polypectomy History of lumpectomy of right breast benign History of tooth extraction most teeth removed--full upper denture/partial lower History of total hysterectomy with bilateral salpingo-oophorectomy (BSO) Social History Smoking Status: Former smoker tobacco type: e-cigarettes Hx Alcohol Use: Yes Alcohol type: beer and wine alcohol intake frequency: holidays/special occasions only Hx Substance Use: No substance use type: does not use Physical Exam Vital Signs Last Vital Signs Temp 37.2 C 04/01/20 03:16 Pulse 120 H 04/01/20 03:16 Resp 16 04/01/20 03:16 BP 109/64 04/01/20 03:16 Pulse Ox 91 04/01/20 03:16 Testing Laboratory Results 03/31/20 17:00 03/31/20 17:00 PT 11.2 Seconds (9.0-12.0) 03/31/20 17:00 INR 1.1 (0.9-1.1) 03/31/20 17:00 APTT 27.5 Seconds (21.0-31.0) 03/31/20 17:00 Hemoglobin A1c 8.5 % (4.5-5.6) H 04/01/20 07:07 04/01/20 04/01/20 04/01/20 11:23 06:58 06:18 POC Glucose 96 112 H 109 H Electrocardiogram Date: 03/31/20 Findings: + AFIB @ (a flutter 120) Chest X-Ray Date: 03/31/20 Findings: + cardiomegaly
[2020-04-01] MEDS: TORSEMIDE 20 MG TAB PO SCH (12:35)
--- NOTE | 2020-04-01 13:27 | Cardioversion ---
Date of Service April 01, 2020 Electrical Cardioversion Rpt Electrical Cardioversion Report Indications: Atrial flutter with elevated ventricular response Procedure and risks were explained in detail, informed consent obtained. After confirmed TIMEOUT, patient sedated via anesthesia consult with continuous HR, BP, O2 sat monitor.' Synchronized electrical cardioversion was performed with serial 150, 200 J biphasic countershock with successful return to sinus rhythm. Post procedure patient aroused tolerating well. EKG: NSR @ 61 bpm, normal tracing QTc 485 Impression: Successful synchronized cardioversion. Plan: Continue same meds.
--- NOTE | 2020-04-01 14:26 | Cardiology Progress Note ---
Date of Service April 01, 2020 Subjective Patient seen post synchronized electrical cardioversion. Underwent procedure without event with successful return to sinus rhythm. Plan continue usual cardiac medications. If patient ambulatory without complaint end of observation. May be able to be discharged home with plan follow-up cardiology 2 to 4 weeks time Results & Data Vital Signs (Past 12 Hours) Vital Signs Temp Pulse Resp BP Pulse Ox 04/01/20 13:35 60 16 97/66 L 96 04/01/20 13:20 60 16 103/67 96 04/01/20 12:29 36.6 C 121 H 22 107/72 94 04/01/20 03:16 37.2 C 120 H 16 109/64 91
--- NOTE | 2020-04-01 15:02 | Anesthesiology Progress Note ---
Date of Service April 01, 2020 Anesthesia Post Procedure Vital Signs Vital Signs: Temp Pulse Pulse Resp BP BP Pulse Ox 04/01/20 13:35 60 16 97/66 L 96 04/01/20 13:20 60 16 103/67 96 04/01/20 12:29 36.6 C 121 H 22 107/72 94 04/01/20 03:16 37.2 C 120 H 16 109/64 91 03/31/20 23:16 36.6 C 123 H 22 126/83 92 03/31/20 20:30 36.7 C 122 H 20 122/86 98 03/31/20 20:15 120 H 03/31/20 19:30 119 H 23 94 03/31/20 19:00 120 H 22 96 03/31/20 18:30 120 H 19 124/93 96 03/31/20 18:24 89 L 03/31/20 18:12 121 H 20 125/92 94 03/31/20 17:30 120 H 23 137/102 H 90 03/31/20 17:15 121 H 22 140/106 H 90 03/31/20 17:00 121 H 21 124/95 92 03/31/20 16:46 120 H 19 127/79 92 03/31/20 16:23 120 H 32 H 139/93 95 03/31/20 15:06 36.8 C 122 H 18 128/87 91 Pulse Ox 04/01/20 13:35 04/01/20 13:20 04/01/20 12:29 04/01/20 03:16 03/31/20 23:16 03/31/20 20:30 03/31/20 20:15 100 03/31/20 19:30 03/31/20 19:00 03/31/20 18:30 03/31/20 18:24 03/31/20 18:12 03/31/20 17:30 03/31/20 17:15 03/31/20 17:00 03/31/20 16:46 03/31/20 16:23 03/31/20 15:06 Transfer of Care Handoff Completed per policy Notes Mental Status: alert / awake / arousable and participated in evaluation Patient Amnestic to Procedure: Yes Nausea / Vomiting: adequately controlled Pain: adequately controlled Airway Patency, RR, SpO2: stable & adequate BP & HR: stable & adequate Hydration State: stable & adequate Anesthetic Complications: no major complications apparent and Pt Satisfied with anesthetic care
--- NOTE | 2020-04-01 16:08 | Discharge Summary ---
Date of Service April 01, 2020 Admission HPI Per Admitting Provider Iveth Perkins is a 64 year old female who presents to the ER from her cardiolgist's office after a routine appointment noted she was tachycardic and subsequent EKG showed atrial flutter with rapid ventricular rate. She reports in hindsight feeling just very fatigued for the last 2 weeks but denies any chest pain, shortness of breath, palpitations, presyncope, syncope, orthopnea or PND. She has known paroxysmal atrial fibrillation and is already on anticoagulation. She received 10mg IV diltiazem in ER. Her case was discussed between Dr Acuña and Dr Schreiber and recommended no excessive use of rate controlling medications, only if becoming symptomatic or extremely tachycardic in conjunction with cardiology. Plan is for cardioversion tomorrow. Principal Diagnosis Atrial flutter with RVR Discharge Exam Constitutional WD/WN, vitals as above + overweight Eyes PERRL, conjunctivae normal, anicteric sclerae ENMT external ear and nose normal, oropharynx normal Neck trachea midline, no thyromegaly Respiratory normal respiratory effort, lungs clear to auscultation Cardiovascular RRR, no murmur, no edema Gastrointestinal (Abdomen) normal bowel sounds, soft, nontender, no hepatosplenomegaly Musculoskeletal no cyanosis or clubbing, extremities motor strength 5/5 Skin no rashes, warm and dry Neurologic patellar DTR's 2+ bilat, sensation intact and PERRL, EOMI, accommodation nl, no face palsy, no dysarthria Psychiatric A+Ox3, euthymic affect Lymphatic no cervical or axillary lymphadenopathy Discharge Data Allergies Allergy/AdvReac Type Severity Reaction Status Date / Time amoxicillin Allergy Severe SOB, RASH Verified 03/31/20 17:10 Penicillins Allergy Severe SOB, RASH Verified 03/31/20 17:10 clarithromycin Allergy Intermediate "feels Verified 03/31/20 17:10 like flying high" clindamycin Allergy Intermediate "feels Verified 03/31/20 17:10 like flying high" fluconazole Allergy Intermediate "feels Verified 03/31/20 17:10 like flying high" sulfamethoxazole Allergy Intermediate "feels Verified 03/31/20 17:10 like flying high" trimethoprim Allergy Intermediate "feels Verified 03/31/20 17:10 like flying high" Bactrim Allergy Unknown UNKNOWN Verified 02/21/18 10:32 codeine AdvReac Mild ITCHING, Verified 03/31/20 17:10 NAUSEA Consultations 03/31/20 17:44 ED Decision to Admit Stat 03/31/20 20:32 Consult Cardiology Routine Procedures Performed Operation Date: 04/01/20 13:00 Actual Procedures p Cardioversion - Matt Schreiber MD Hospital Course (1) Atrial flutter with rapid ventricular response: Patient asymptomatic other than some fatigue for the past 2 weeks. Picked up incidentally in outpatient office. d/w Dr. Schreiber, likely been in aflutter for a few weeks/months, no symptoms successful cardioversion with Dr. cShreiber on 04/01/20 back in sinus rhythm, will be d/c to home, continue on Amiodarone, metoprolol, anticoagulated on apixiban (2) Hypothyroidism: TSH WNL. Continue levothyroxine 50 mcg PO daily. (3) Tooth pain: Continue outpatient keflex pending dentistry appointment. Patient to call office tomorrow for further advice on this since she will miss her appointment due to admission. (4) Paroxysmal atrial fibrillation: Continue amiodarone 200mg PO daily Anticoagulation with Eliquis 5mg BID (5) Stage III chronic kidney disease: At baseline (6) HTN (hypertension): Continue irbesartan, metoprolol tartrate (7) Uncontrolled type 2 diabetes mellitus with kidney complication, with long- term current use of insulin: HbA1C improved to 8.8 in Oct, repeat in AM Hypoglycemic on admission Consult pharmacy for glycemic control with basal bolus insulin regimen Total Time Total Time Spent Total Time Spent (In Minutes): 25 minutes Total Time Includes: Examination of the Patient, Discharge Planning, Medication Reconciliation and Communication With Other Providers (Dr. Schreiber) Discharge Plan Discharge Items Patient Disposition: Home - Self-Care Reason For Visit: ATRIAL FLUTTER WITH RAPID VENTRICULAR RESPONSE Discharge Diagnosis: Atrial flutter with RVR s/p cardioversion Condition on Discharge: Good Goals: follow up with cardiology as needed Activity: Resume your previous activity Driving/Machine Use: Resume 1 day after discharge Weightbearing: Full weightbearing Non-emergency contact: Primary Care Provider and Collection Systems Technician Call non-emergency contact if: you have any medication questions and your symptoms worsen Follow-up/Referrals: Jimbo Srivastava III, MD [Primary Care Provider] - (1-2 weeks) Diet: Carb Consistent or DM2 Addtl Attending Provider Instructions: Medications: no changes Atrial flutter with RVR: successful cardioversion with Dr. Abdoul lopez to return home follow up with cardiology as needed Pending Studies at Discharge: No Stand-Alone Forms: My [facility] Applyful, Smoking Cessation Medications and DC Order Prescriptions: Continued aspirin [Aspirin Low Dose] 81 mg Tablet,Delayed Release (Dr/Ec) 81 mg PO QAM Qty: 0 RF: 0 meclizine 12.5 mg Tablet 12.5 mg PO TID PRN (Reason: Dizziness) 10 Days Qty: 30 RF: 0 magnesium chloride 64 mg tablet,delayed release (DR/EC) 64 mg PO BID Qty: 90 RF: 3 irbesartan 300 mg tablet 300 mg PO QAM Qty: 30 RF: 5 albuterol sulfate 90 mcg/actuation HFA aerosol inhaler 2 puff INHALATION Q6H PRN (Reason: Shortness Of Breath) Qty: 18 RF: 6 atorvastatin [Lipitor] 40 mg tablet 40 mg PO QAM Qty: 30 RF: 5 levothyroxine 50 mcg tablet 50 mcg PO DAILY Qty: 30 RF: 11 (DME) insulin syringe-needle U-100 [BD Insulin Syringe Ultra-Fine] 1 mL 31 gauge x 5/16 syringe See Rx Instructions [id number] .MEDSUPPLY Qty: 200 RF: 5 ezetimibe 10 mg tablet 10 mg PO QAM Qty: 90 RF: 3 ferrous sulfate 325 mg (65 mg iron) tablet 325 mg PO DAILY Qty: 90 RF: 3 apixaban 5 mg tablet 5 mg PO Q12H Qty: 60 RF: 5 Lantus U-100 Insulin 100 unit/mL solution 70 units SQ DAILY Qty: 70 RF: 3 metoprolol tartrate 100 mg tablet 100 mg PO BID Qty: 60 RF: 11 pantoprazole [Protonix] 40 mg tablet,delayed release (DR/EC) 40 mg PO DAILY Qty: 30 RF: 5 calcitriol 0.25 mcg capsule 0.25 mcg PO UD Qty: 45 RF: 3 torsemide 20 mg tablet 40 mg PO BID Qty: 120 RF: 4 triamcinolone acetonide 0.1 % cream 1 appln TOP DAILY Qty: 80 RF: 1 cephalexin 500 mg capsule 500 mg PO TID Qty: 21 RF: 1 cyanocobalamin (vitamin B-12) 1,000 mcg tablet extended release 1,000 mcg PO DAILY RF: 0 Novolog U-100 Insulin aspart 100 unit/mL solution 18 units SUBCUT DAILYBB RF: 0 (DME) OneTouch Ultra Blue Test Strip Strip See Dose Instructions .ROUTE .MEDSUPPLY Qty: 500 RF: 3 amiodarone 200 mg tablet 200 mg PO QAM RF: 0 multivitamin with folic acid 400 mcg Tablet 1 tab PO DAILY RF: 0 insulin aspart U-100 [Novolog U-100 Insulin aspart] 100 unit/mL solution 20 unit subcut BID RF: 0 Discharge Orders: Discharge Order (Routine); Ordered 04/01/20 Ordered By: Shivam Cottrell/Other Patient Handouts: Diabetes Manage A1C Test Admission Data Admit Date/Time: 03/31/20 18:59 Attending Provider: Shivam Hamilton Admit Provider: Leonardo Mcgill Primary Care Provider: Jimbo Srivastava III Other Providers: Leonardo Mcgill ; Matt Schreiber Other Interventions: Discharge Summary Assessment (RN) Last Done: 04/01/20 16:15 DC Date/Time DO NOT enter until pt leaves facility: 04/01/20 17:00 Coding Level of Care Code 31057 OBS Care - Discharge Diagnoses Atrial flutter with rapid ventricular response I48.92 Hypothyroidism E03.9 Tooth pain K08.89 Paroxysmal atrial fibrillation I48.0 Stage III chronic kidney disease N18.3 HTN (hypertension) I10 Uncontrolled type 2 diabetes mellitus with kidney complication, with long-term current use of insulin E11.29; E11.65; Z79.4
[2020-04-01 16:15] VITALS: PULSE 72; TEMP 97.7; O2SAT 90
[2020-04-01 16:22] VITALS: BP 97/66
[2020-04-01] MEDS ORDERED: INSULIN ASPART 100 UNITS/ML 3 ML PEN SC SCH (16:30)
--- NOTE | 2020-04-01 23:36 | Electrocardiogram Report ---
Test Reason : Blood Pressure : / mmHG Vent. Rate : 061 BPM Atrial Rate : 061 BPM P-R Int : 194 ms QRS Dur : 078 ms QT Int : 482 ms P-R-T Axes : 060 048 040 degrees QTc Int : 485 ms Normal sinus rhythm Nonspecific ST abnormality Prolonged QT When compared with ECG of 31-MAR-2020 16:21, Sinus rhythm has replaced Atrial flutter Vent. rate has decreased BY [address] no longer depressed in Inferior leads Nonspecific T wave abnormality no longer evident in Inferior leads T wave inversion less evident in Anterolateral leads Confirmed by Mo Oviedo ([id number]) on 04/01/2020 11:36:35 PM Referred By: Juventino Rapp Confirmed By:Mo Oviedo
[2020-04-02] MEDS ORDERED: CALCITRIOL 0.25 MCG CAPSULE PO SCH (09:00)
[2020-04-02] MEDS ORDERED: INSULIN GLARGINE SOLOSTAR 100 UNITS/ML 3 ML PEN SC SCH (09:00)
== END 2020-04-01 17:00 | disposition home or self-care (01) ==
LOC: 2S 14:55 → ED 14:55 → SUATTDRO 18:59 → 2S 19:48

== ENCOUNTER 2020-04-26 11:30 | Inpatient (IN) ==
[2020-04-26] MEDS ORDERED: SODIUM CHLORIDE 0.9% 1000ML 1,000 ML IV ONE (11:40)
[2020-04-26 12:03] LABS: Mean Corpuscular Hgb Conc 30.8 g/dL (32-36); Mean Platelet Volume 9.7 fL (7.4-10.4); Platelet Count 277 K/uL (130-400)
--- NOTE | 2020-04-26 12:03 | Emergency Department Note ---
History of Present Illness General Chief complaint: Referred by Doctor Stated complaint: HEART PROBLEMS History of Present Illness This patient is a 64-year-old female who presents ambulatory to the emergency department for evaluation of a possible heart arrhythmia. The patient apparently has a history of possible A. fib/a flutter. She was recently admitted. She is currently on anticoagulation. The patient was at her hydrologic engineer office today for follow-up. She was noted to have a high heart rate, and was sent here for evaluation. She currently reports mild shortness of breath. No chest pain. She also notes that her legs seem to be more swollen than normal. She has been taking her medications as prescribed. Home Medications Home Medications Medication Instructions Recorded Confirmed Type aspirin [Aspirin Low Dose] 81 mg PO QAM #0 12/28/11 04/26/20 History meclizine 12.5 mg PO TID PRN 10 Days #30 tab 09/26/16 04/26/20 History amiodarone 200 mg tablet 200 mg PO QAM tab 06/05/19 04/26/20 History irbesartan 300 mg tablet 300 mg PO QAM #30 tab 11/05/19 04/26/20 Rx albuterol sulfate 90 mcg/actuation 2 puff INHALATION Q6H PRN #18 gm 11/19/19 04/26/20 Rx aerosol inhaler atorvastatin 40 mg tablet 40 mg PO QAM #30 tab 11/27/19 04/26/20 Rx levothyroxine 50 mcg tablet 50 mcg PO DAILY #30 tab 11/27/19 04/26/20 Rx OneTouch Ultra Blue Test Strip #500 ea NS 12/01/19 03/24/20 Rx torsemide 20 mg tablet 40 mg PO BID #120 tab 12/01/19 04/26/20 Rx insulin syringe-needle U-100 1 mL #200 ea 12/04/19 03/24/20 Rx 31 gauge x 5/16" ezetimibe 10 mg tablet 10 mg PO QAM #90 tab 02/17/20 04/26/20 Rx ferrous sulfate 325 mg (65 mg 325 mg PO DAILY #90 tab 02/17/20 04/26/20 Rx iron) tablet apixaban 5 mg tablet 5 mg PO Q12H #60 tab 02/20/20 04/26/20 Rx metoprolol tartrate 100 mg tablet 100 mg PO BID #60 tab 03/16/20 04/26/20 Rx pantoprazole 40 mg tablet,delayed 40 mg PO DAILY #30 tab 03/23/20 04/26/20 Rx release calcitriol 0.25 mcg capsule 0.25 mcg PO UD #45 cap 03/24/20 04/26/20 Rx cyanocobalamin (vitamin B-12) 1,000 mcg PO DAILY 03/24/20 04/26/20 History 1,000 mcg tablet,extended release insulin aspart U-100 [Novolog 0 unit SUBCUT UD 03/31/20 04/26/20 History U-100 Insulin aspart] multivitamin with folic acid 1 tab PO DAILY 03/31/20 04/26/20 History magnesium chloride 64 mg 64 mg PO BID #90 tab 04/02/20 04/26/20 Rx (magnesium chloride) tablet,delayed release Lantus U-100 Insulin 0 units SQ DAILY 04/26/20 04/26/20 History Allergies Allergy/AdvReac Type Severity Reaction Status Date / Time amoxicillin Allergy Severe SOB, RASH Verified 04/26/20 12:23 Penicillins Allergy Severe SOB, RASH Verified 04/26/20 12:23 clarithromycin Allergy Intermediate "feels Verified 04/26/20 12:23 like flying high" clindamycin Allergy Intermediate "feels Verified 04/26/20 12:23 like flying high" fluconazole Allergy Intermediate "feels Verified 04/26/20 12:23 like flying high" sulfamethoxazole Allergy Intermediate "feels Verified 04/26/20 12:23 like flying high" trimethoprim Allergy Intermediate "feels Verified 04/26/20 12:23 like flying high" Bactrim Allergy Unknown UNKNOWN Verified 02/21/18 10:32 codeine AdvReac Mild ITCHING, Verified 04/26/20 12:23 NAUSEA Past Med/Surg History Medical History Atrial fibrillation (Acute) follows with Dr. Rapp---on eliquis Atrial flutter hx of Chronic anticoagulation (Chronic) Chronic obstructive pulmonary disease inhaler prn Chronic pain of left knee (Chronic) DJD Degenerative disc disease Diabetes mellitus, type 2 Diabetic foot ulcer associated with type 2 diabetes mellitus Diastolic CHF Hyperlipidemia Hypertension Hypothyroidism Lumbar radicular pain (Chronic) Myofascial pain (Chronic) Nausea and vomiting after administration of anesthetic agent Obesity On anticoagulant therapy eliquis daily Osteoarthritis Spinal stenosis Spinal stenosis of lumbar region (Chronic) TIA (transient ischemic attack) (Resolved 07/14/14) Surgical History History of cardioversion x2 History of carpal tunnel surgery of left wrist History of colonoscopy with polypectomy History of lumpectomy of right breast benign History of tooth extraction most teeth removed--full upper denture/partial lower History of total hysterectomy with bilateral salpingo-oophorectomy (BSO) Family History Sister Family history of reaction to anesthesia nausea/vomiting Hypothyroidism Father Family history of reaction to anesthesia nausea/vomiting Family hx colonic polyps Hypertension Mother Diabetes Hypertension Denies family history of Breast cancer Colorectal cancer Social History Preferred Language: Setswana Communication Ability: Effective Layup Worker Required: No Beliefs That Will Affect Care: None Current Living Situation: Family current occupational status: retired Other Information That Helps Us Care for You: No Feels Safe at Home: Yes Safety Concerns: Feels Safe At This Time Smoking Status: Former smoker Tobacco Type: e-cigarettes ; Do You Dip or Chew Tobacco: No ; Second Hand Exposure: Yes ; Tobacco Cessation Education Requested by Patient: No Hx Alcohol Use: Yes Alcohol type: beer and wine Hx Substance Use: No Review of Systems A total of 10 systems reviewed and were otherwise negative Physical Exam Vital Signs Vital Signs - 24 hr 04/26/20 11:33 04/26/20 12:53 04/26/20 14:49 Temperature 36.9 C Temperature Source Oral Pulse Rate 121 H Pulse Rate [Apical] 121 H 118 H Pulse Rhythm Regular Pulse Strength Normal Respiratory Rate 22 22 22 Respiratory Effort / Characteristics Non-Labored Spontaneous Respiratory Depth Normal Respiratory Pattern Regular Blood Pressure 125/67 Blood Pressure [Right Arm] 124/80 143/87 H Blood Pressure Mean 86 Blood Pressure Mean [Right Arm] 94 105 Blood Pressure Position Sitting Pulse Oximetry 94 92 98 Oxygen Delivery Method Room Air Room Air Nasal Cannula Oxygen Flow Rate 3 Sepsis Recent Fever Within 48 Hours No Sepsis New/Unexplained Change in Mental Status No Sepsis Action Taken by Nursing No Action Required Constitutional WD/WN, vitals as above Eyes EOM intact bilaterally ENMT external ear and nose normal, oropharynx normal Neck trachea midline Respiratory normal respiratory effort, lungs clear to auscultation Cardiovascular Tachycardic, no murmur. Gastrointestinal (Abdomen) normal bowel sounds, soft, nontender, no hepatosplenomegaly Musculoskeletal no cyanosis or clubbing, extremities motor strength 5/5 Skin no rashes, warm and dry Neurologic Alert and oriented x3. No focal motor deficits. Psychiatric Acting appropriately Course Course Patient was seen and examined Vital signs including blood pressure were reviewed medications list was verified with patient Labs were obtained, and a saline lock was established An order was placed for continuous cardiac monitoring. The monitor shows a rate of 110 with atrial flutter rhythm." Case was discussed with cardiology in addition to my supervising physician Patient updated at the bedside and stable. She was in agreement with the plan. I spoke with the hospitalist service, who kindly agreed to admit the patient for further work-up. Consultations Consultation #1: Dr. Rapp Consultation #2: Dr. Mcgill Administered Medications Amiodarone HCl (Cordarone) 200 mg PO QAM [facility] Stop: 05/27/20 08:59 Last Admin: 04/27/20 08:25 Dose: 200 mg Documented by: [id number] Apixaban (Eliquis) 5 mg PO BID [facility] Stop: 05/26/20 20:59 Last Admin: 04/27/20 08:25 Dose: 5 mg Documented by: [id number] Admin: 04/26/20 21:05 Dose: 5 mg Documented by: [id number] Aspirin ([facility]rin [facility]ab) [facility] Stop: 05/27/20 08:59 Last Admin: 04/27/20 08:25 Dose: 81 mg Documented by: [id number] Atorvastatin Calcium (Lipitor) 40 mg PO QAM [facility] Stop: 05/27/20 08:59 Last Admin: 04/27/20 08:26 Dose: 40 mg Documented by: [id number] Calcitriol (Rocaltrol) 0.25 mcg PO SuTuTh@0900 [facility] Stop: 05/27/20 08:59 Last Admin: 04/27/20 08:27 Dose: 0.25 mcg Documented by: [id number] Cyanocobalamin (Vitamin B-12) 1,000 mcg PO DAILY [facility] Stop: 05/27/20 08:59 Last Admin: 04/27/20 08:27 Dose: 1,000 mcg Documented by: [id number] Ezetimibe (Zetia) 10 mg PO QAM [place] Stop: 05/27/20 08:59 Last Admin: 04/27/20 08:27 Dose: 10 mg Documented by: [id number] Ferrous Sulfate (Feosol) 325 mg PO DAILY [facility] Stop: 05/27/20 08:59 Last Admin: 04/27/20 08:26 Dose: 325 mg Documented by: [id number] Ceftriaxone Sodium 2,000 mg/ (Dextrose) 70 mls @ 100 mls/hr IV Q24H [place]; P rotocol Stop: 05/03/20 16:59 Last Infusion: 04/26/20 18:10 Dose: 0 mls/hr Documented by: [id number] Admin: 04/26/20 17:08 Dose: 100 mls/hr Documented by: [id number] Furosemide 60 mg/ Syringe 6 mls @ 4 mls/min IV [id number] [facility] Stop: 05/26/20 16:59 Last Admin: 04/27/20 08:26 Dose: 4 mls/min Documented by: [id number] Admin: 04/26/20 17:08 Dose: 4 mls/min Documented by: [id number] Insulin Aspart (Novolog Flexpen) 0 units SC ACHS [facility] Stop: 05/26/20 16:37 Last Admin: 04/27/20 08:24 Dose: Not Given Documented by: [id number] Cosigned by: [id number] Admin: 04/26/20 21:05 Dose: 1 units Documented by: [id number] Cosigned by: [id number] Admin: 04/26/20 18:04 Dose: 5 units Documented by: [id number] Cosigned by: [id number] Irbesartan (Avapro) 300 mg PO QAM [facility] Stop: 05/27/20 08:59 Last Admin: 04/27/20 08:25 Dose: 300 mg Documented by: [id number] Levothyroxine Sodium (Synthroid) 50 mcg PO DAILYBB [facility] Stop: 05/27/20 06:29 Last Admin: 04/27/20 06:36 Dose: 50 mcg Documented by: [id number] Magnesium Chloride (Slow-Mag) 64 mg PO BID [place] Stop: 05/26/20 20:59 Last Admin: 04/27/20 08:27 Dose: 64 mg Documented by: [id number] Admin: 04/26/20 21:05 Dose: 64 mg Documented by: [id number] Metoprolol Tartrate (Lopressor) 100 mg PO BID [place] Stop: 05/26/20 20:59 Last Admin: 04/27/20 08:26 Dose: 100 mg Documented by: [id number] Admin: 04/26/20 21:05 Dose: 100 mg Documented by: [id number] Miscellaneous (Carbohydrates For Hypoglycemia) 15 - 30 gm PO UD PRN PRN Reason: Hypoglycemia Protocol Stop: 05/26/20 16:37 Last Admin: 04/27/20 07:34 Dose: 15 gm Documented by: [id number] Multivitamins (Multivitamin Tab) 1 tab PO DAILY [place] Stop: 05/27/20 08:59 Last Admin: 04/27/20 08:26 Dose: 1 tab Documented by: [id number] Pantoprazole Sodium (Protonix) 40 mg PO DAILY [place] Stop: 05/27/20 08:59 Last Admin: 04/27/20 08:26 Dose: 40 mg Documented by: [id number] Discontinued Medications Dextrose (Dextrose 50%) 25 ml IV NOW ONE Stop: 04/26/20 12:23 Last Admin: 04/26/20 12:28 Dose: 25 ml Documented by: [id number] Dextrose (Dextrose 50%) Confirm Administered Dose 50 ml IV .STK-MED ONE Stop: 04/26/20 12:24 Last Admin: 04/26/20 12:29 Dose: Not Given Documented by: [id number] Dextrose (Dextrose 50%) 25 ml IV NOW ONE Stop: 04/26/20 15:27 Last Admin: 04/26/20 15:15 Dose: 25 ml Documented by: [id number] Sodium Chloride (Nss 1000ml) 1,000 mls @ 999 mls/hr IV .Q1H1M ONE Stop: 04/26/20 12:40 Last Admin: 04/26/20 12:01 Dose: Not Given Documented by: [id number] Insulin Glargine (Lantus Solostar Pen) 20 units SC ONE ONE Stop: 04/27/20 09:21 Last Admin: 04/27/20 10:32 Dose: 20 units Documented by: [id number] Cosigned by: [id number] Perflutren Lipid Microsphere (Definity) 2 ml IV ONCE ONE Stop: 04/27/20 07:00 Last Admin: 04/27/20 07:00 Dose: 2 ml Documented by: [id number] Medical Decision Making Medical Records Attestation: I reviewed the patient's medical records. Home Medications Current Medication List: was personally reviewed by me Laboratory Data Attestation: I reviewed the patient's lab results. Result diagrams: 04/26/20 11:54 04/27/20 06:26 Lab Results 04/26/20 04/26/20 04/26/20 Range/Units 11:54 11:54 11:54 WBC 9.31 (4.8-10.8) K/uL RBC 4.43 (4.2-5.4) M/uL Hgb 13.3 (12.0-16.0) g/dL Hct 43.2 (37-47) % MCV 97.5 (80-100) fL MCH 30.0 (25-34) pg MCHC 30.8 L (32-36) g/dL RDW Std Deviation 60.2 H (36.4-46.3) fL RDW Coeff of Shannan 17.0 H (11.5-14.5) % Plt Count 277 (130-400) K/uL MPV 9.7 (7.4-10.4) fL Immature Gran % (Auto) 0.3 % Neut % (Auto) 69.2 % Lymph % (Auto) 18.6 % [place] % (Auto) 8.5 % Eos % (Auto) 3.1 % Baso % (Auto) 0.3 % Neut # (Auto) 6.44 (1.4-6.5) K/uL Lymph # (Auto) 1.73 (1.2-3.4) K/uL [place] # (Auto) 0.79 H (0.11-0.59) K/uL Eos # (Auto) 0.29 (0-0.5) K/uL Baso # (Auto) 0.03 (0-0.2) K/uL Immature Gran # (Auto) 0.03 H (0.00-0.02) K/uL RBC Morphology Unremarkable PT 11.1 (9.0-12.0) Seconds INR 1.1 (0.9-1.1) Sodium 140 (136-145) mmol/L Potassium 4.0 (3.5-5.1) mmol/L Chloride 99 (98-107) mmol/L Carbon Dioxide 38 H (21-32) mmol/L Anion Gap 2.0 L (3-11) BUN 29 H (7-18) mg/dl Creatinine 1.61 H (0.6-1.2) mg/dl Est Cr Clr Drug Dosing 56.3 ml/min Est GFR ( Amer) 38.8 Est GFR (Non-Af Amer) 33.4 BUN/Creatinine Ratio 17.8 (10-20) Glucose 57 L (70-99) mg/dl POC Glucose (70-99) mg/dl Calcium 9.0 (8.5-10.1) mg/dl Phosphorus 3.3 (2.5-4.9) mg/dl Magnesium 2.4 (1.8-2.4) mg/dl Total Bilirubin 0.5 (0.2-1) mg/dl AST 12 L (15-37) U/L ALT 10 L (12-78) U/L Alkaline Phosphatase 102 (45-117) U/L Total Creatine Kinase 61 (26-192) U/L Troponin I < 0.015 (0-0.045) ng/ml Total Protein 7.9 (6.4-8.2) gm/dl Albumin 3.1 L (3.4-5.0) gm/dl Globulin 4.8 H (2.5-4.0) gm/dl Albumin/Globulin Ratio 0.6 L (0.9-2) TSH 3.560 (0.300-4.500) uIu/ml Urine Color Urine Appearance (Clear) Urine pH (4.5-7.5) Ur Specific [place] (1.000-1.030) Urine Protein (Negative) Urine Glucose (UA) (Negative) Urine Ketones (Negative) Urine Blood (Negative) Urine Nitrite (Negative) Urine Bilirubin (Negative) Urine Urobilinogen (Negative) Ur Leukocyte Esterase (Negative) 04/26/20 04/26/20 04/26/20 Range/Units 11:55 12:20 12:46 WBC (4.8-10.8) K/uL RBC (4.2-5.4) M/uL Hgb (12.0-16.0) g/dL Hct (37-47) % MCV (80-100) fL MCH (25-34) pg MCHC (32-36) g/dL RDW Std Deviation (36.4-46.3) fL RDW Coeff of Shannan (11.5-14.5) % Plt Count (130-400) K/uL MPV (7.4-10.4) fL Immature Gran % (Auto) % Neut % (Auto) % Lymph % (Auto) % [place] % (Auto) % Eos % (Auto) % Baso % (Auto) % Neut # (Auto) (1.4-6.5) K/uL Lymph # (Auto) (1.2-3.4) K/uL [place] # (Auto) (0.11-0.59) K/uL Eos # (Auto) (0-0.5) K/uL Baso # (Auto) (0-0.2) K/uL Immature Gran # (Auto) (0.00-0.02) K/uL RBC Morphology PT (9.0-12.0) Seconds INR (0.9-1.1) Sodium (136-145) mmol/L Potassium (3.5-5.1) mmol/L Chloride (98-107) mmol/L Carbon Dioxide (21-32) mmol/L Anion Gap (3-11) BUN (7-18) mg/dl Creatinine (0.6-1.2) mg/dl Est Cr Clr Drug Dosing ml/min Est GFR ( Amer) Est GFR (Non-Af Amer) BUN/Creatinine Ratio (10-20) Glucose (70-99) mg/dl POC Glucose 52 L* 78 (70-99) mg/dl Calcium (8.5-10.1) mg/dl Phosphorus (2.5-4.9) mg/dl Magnesium (1.8-2.4) mg/dl Total Bilirubin (0.2-1) mg/dl AST (15-37) U/L ALT (12-78) U/L Alkaline Phosphatase (45-117) U/L Total Creatine Kinase (26-192) U/L Troponin I (0-0.045) ng/ml Total Protein (6.4-8.2) gm/dl Albumin (3.4-5.0) gm/dl Globulin (2.5-4.0) gm/dl Albumin/Globulin Ratio (0.9-2) TSH (0.300-4.500) uIu/ml Urine Color Yellow Urine Appearance Clear (Clear) Urine pH 8.5 H (4.5-7.5) Ur Specific [place] 1.012 (1.000-1.030) Urine Protein Negative (Negative) Urine Glucose (UA) Negative (Negative) Urine Ketones Negative (Negative) Urine Blood Negative (Negative) Urine Nitrite Negative (Negative) Urine Bilirubin Negative (Negative) Urine Urobilinogen Negative (Negative) Ur Leukocyte Esterase Negative (Negative) 04/26/20 Range/Units 14:36 WBC (4.8-10.8) K/uL RBC (4.2-5.4) M/uL Hgb (12.0-16.0) g/dL Hct (37-47) % MCV (80-100) fL MCH (25-34) pg MCHC (32-36) g/dL RDW Std Deviation (36.4-46.3) fL RDW Coeff of Shannan (11.5-14.5) % Plt Count (130-400) K/uL MPV (7.4-10.4) fL Immature Gran % (Auto) % Neut % (Auto) % Lymph % (Auto) % [place] % (Auto) % Eos % (Auto) % Baso % (Auto) % Neut # (Auto) (1.4-6.5) K/uL Lymph # (Auto) (1.2-3.4) K/uL [place] # (Auto) (0.11-0.59) K/uL Eos # (Auto) (0-0.5) K/uL Baso # (Auto) (0-0.2) K/uL Immature Gran # (Auto) (0.00-0.02) K/uL RBC Morphology PT (9.0-12.0) Seconds INR (0.9-1.1) Sodium (136-145) mmol/L Potassium (3.5-5.1) mmol/L Chloride (98-107) mmol/L Carbon Dioxide (21-32) mmol/L Anion Gap (3-11) BUN (7-18) mg/dl Creatinine (0.6-1.2) mg/dl Est Cr Clr Drug Dosing ml/min Est GFR ( Amer) Est GFR (Non-Af Amer) BUN/Creatinine Ratio (10-20) Glucose (70-99) mg/dl POC Glucose 53 L* (70-99) mg/dl Calcium (8.5-10.1) mg/dl Phosphorus (2.5-4.9) mg/dl Magnesium (1.8-2.4) mg/dl Total Bilirubin (0.2-1) mg/dl AST (15-37) U/L ALT (12-78) U/L Alkaline Phosphatase (45-117) U/L Total Creatine Kinase (26-192) U/L Troponin I (0-0.045) ng/ml Total Protein (6.4-8.2) gm/dl Albumin (3.4-5.0) gm/dl Globulin (2.5-4.0) gm/dl Albumin/Globulin Ratio (0.9-2) TSH (0.300-4.500) uIu/ml Urine Color Urine Appearance (Clear) Urine pH (4.5-7.5) Ur Specific [place] (1.000-1.030) Urine Protein (Negative) Urine Glucose (UA) (Negative) Urine Ketones (Negative) Urine Blood (Negative) Urine Nitrite (Negative) Urine Bilirubin (Negative) Urine Urobilinogen (Negative) Ur Leukocyte Esterase (Negative) Imaging Data Attestation: I personally reviewed and interpreted this imaging study as follows: Radiologist's Impression: Chest x-ray Congestive heart failure ECG Data Attestation: I personally reviewed and interpreted this ECG as follows: Indication: + other Rate (beats per minute): 119 Rhythm: + atrial flutter Additional Comments: 2-1 conduction noted. Prolonged QT When compared to prior EKG on April 01, 2020, she is now in a flutter as opposed to normal sinus rhythm. Blood Pressure Blood Pressure Findings: Normal blood pressure MDM Narrative Differential diagnosis: Acute myocardial infarction, cardiac arrhythmia, anemia, thyroid abnormality, pneumothorax, pneumonia, bronchitis, pericarditis, electrolyte imbalance, infectious etiology, dehydration, among others This patient is a 64-year-old female who presents emergency department from her hydrologic engineer office for evaluation of rapid heart rate. On exam, she was tachycardic. It appears to be regular. EKG shows a flutter. No signs of ischemia. Troponin was negative. The patient is already on multiple rate co ntrolling medications. She is also anticoagulated on Eliquis. The etiology of her symptoms is unclear. The patient was hypoglycemic. This was repleted to the emergency department. I do not feel comfortable sending the patient home. It was discussed with the hydrologic engineer, who recommended hospitalist consultation for likely inpatient management. The patient was in agreement, and remained stable in the emergency department. Impression & Plan Atrial flutter Discharge Plan Visit Data *Final* Discharge Date/Time: 04/26/20 15:58 Chief Complaint: Referred by Doctor Stated Complaint: HEART PROBLEMS ED Provider: Phil Freeman ED Midlevel Provider: Jacquelyn Powell Discharge Problem: Atrial flutter Patient Disposition: Admitted As Inpatient Discharge Instructions Interventions: ED Discharge Assessment Last Done: 04/26/20 15:58
[2020-04-26 12:12] LABS: INR 1.1 (0.9-1.1); Prothrombin Time 11.1 Seconds (9.0-12.0)
[2020-04-26 12:20] LABS: Alanine Aminotransferase 10 U/L (12-78); Albumin Level 3.1 gm/dl (3.4-5.0); Aspartate Aminotransferase 12 U/L (15-37); BUN Creatinine Ratio 17.8 (10-20); Blood Urea Nitrogen 29 mg/dl (7-18); Carbon Dioxide 38 mmol/L (21-32); Chloride 99 mmol/L (98-107); Creatinine Clr Calc Pharmacy 56.3 ml/min; Est GFR (African American) 38.8; Est GFR (Non-African American) 33.4; Glucose 57 mg/dl (70-99); Magnesium 2.4 mg/dl (1.8-2.4); Sodium 140 mmol/L (136-145)
[2020-04-26] MEDS ORDERED: DEXTROSE 50% 50 ML SYRINGE IV ONE ×3 (12:22→15:26)
[2020-04-26 12:30] LABS: Albumin Globulin Ratio 0.6 (0.9-2); Alkaline Phosphatase 102 U/L (45-117); Bilirubin,Total 0.5 mg/dl (0.2-1); Creatine Kinase 61 U/L (26-192); Globulin 4.8 gm/dl (2.5-4.0); Phosphorus 3.3 mg/dl (2.5-4.9); Total Protein 7.9 gm/dl (6.4-8.2); Troponin I < 0.015 ng/ml (0-0.045)
[2020-04-26 12:32] LABS: Basophils # (auto) 0.03 K/uL (0-0.2); Basophils % (auto) 0.3 %; Eosinophils # (auto) 0.29 K/uL (0-0.5); Eosinophils % (auto) 3.1 %; Hematocrit (blood only) 43.2 % (37-47); Hemoglobin 13.3 g/dL (12.0-16.0); Immature Granulocytes # (auto) 0.03 K/uL (0.00-0.02); Immature Granulocytes % (auto) 0.3 %; Lymphocytes # (auto) 1.73 K/uL (1.2-3.4); Lymphocytes % (auto) 18.6 %; Mean Corpuscular Volume 97.5 fL (80-100); Monocytes # (auto) 0.79 K/uL (0.11-0.59); Monocytes % (auto) 8.5 %; Neutrophils # (auto) 6.44 K/uL (1.4-6.5); Neutrophils % (auto) 69.2 %; RBC Morphology Unremarkable; RDW Standard Deviation 60.2 fL (36.4-46.3); Red Blood Count 4.43 M/uL (4.2-5.4); White Blood Count 9.31 K/uL (4.8-10.8)
--- NOTE | 2020-04-26 12:43 | XRay Report ---
XR chest 1V portable CLINICAL HISTORY: Cardiac arrhythmia dyspnea COMPARISON STUDY: 04/08/2020 FINDINGS: Moderate cardiomegaly. Prominent pulmonary vasculature. Diaphragms are smooth. Costophrenic angles are sharp. IMPRESSION: Congestive heart failure ACT 112: Negative or not required by law. The above report was generated using voice recognition software. It may contain grammatical, syntax or spelling errors. Electronically signed by: Espinoza Batista M.D. 04/26/2020 12:42 PM
[2020-04-26 13:00] LABS: Appearance Urine Clear (Clear); Bilirubin Urine Negative (Negative); Blood Urine Negative (Negative); Color Urine Yellow; Glucose Urine UA Negative (Negative); Ketones Urine Negative (Negative); Leukocyte Esterase Urine Negative (Negative); Nitrite Urine Negative (Negative); Protein Urine Negative (Negative); Specific Gravity Urine 1.012 (1.000-1.030); Urobilinogen Urine Negative (Negative); pH Urine 8.5 (4.5-7.5)
--- NOTE | 2020-04-26 15:28 | History & Physical Report ---
Date of Service April 26, 2020 Assessment & Plan (1) Atrial flutter with rapid ventricular response: Consult cardiology given back in a. flutter after recent cardioversion despite amiodarone use. Possible need for ablation. (2) Cellulitis of right lower extremity: Ceftriaxone 2g IV daily (3) Acute on chronic diastolic heart failure: Given 1L NSS bolus in ER. Weight increased from 150 to 167 kg since prior admission 1 month ago. Pulmonary edema noted on CXR. Discussed with Dr Coleman. Will start on IV lasix 60mg IV BID. Continue metoprolol tartrate 100mg BID -> will defer switching to succinate to cardiology Continue irbesartan (4) Folliculitis: No drug changes made on last visit to suggest a drug reaction causing her rash. Possible allergic dermatitis although not over any particular contact areas. Appears psoriatic on her left elbow but no prior diagnosis of this. Majority of rash appears consistent with folliculitis Should respond to ceftriaxone primarily given for cellulitis as above. Consider MRSA coverage if not responsive to ceftriaxone. 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 Carb ratio 7, correction 15. Dose Lantus in AM depending on overnight glucose measurements (8) DVT prophylaxis: Continue chronic anticoagulation with apixaban 5mg BID Admission and Anticipated Discharge Date Admission Date: 04/26/2020 History of Present Illness Chief Complaint: Atrial flutter with RVR Primary Care Provider: Jimbo Srivastava MD Iveth Maddie is a 64 year old female with paroxysmal atrial flutter who presents from her cardiology follow up visit with Dr Rapp with atrial flutter with RVR. She denies having any palpitations or increased shortness of breath or fatigue from when she was discharged after cardioversion 1 month previously, however she does note about 30lb of weight gain since then. Her legs are also more swollen and erythematous which she notes happens from time to time and sometimes she is treated with antibiotics. She also notes a rash which started prior to her last admission in 2 spots although now is present over bilateral thighs and forearms with excoriation avilez and white crusting skin thickening areas. Allergies Allergy/AdvReac Type Severity Reaction Status Date / Time amoxicillin Allergy Severe SOB, RASH Verified 04/26/20 12:23 Penicillins Allergy Severe SOB, RASH Verified 04/26/20 12:23 clarithromycin Allergy Intermediate "feels Verified 04/26/20 12:23 like flying high" clindamycin Allergy Intermediate "feels Verified 04/26/20 12:23 like flying high" fluconazole Allergy Intermediate "feels Verified 04/26/20 12:23 like flying high" sulfamethoxazole Allergy Intermediate "feels Verified 04/26/20 12:23 like flying high" trimethoprim Allergy Intermediate "feels Verified 04/26/20 12:23 like flying high" Bactrim Allergy Unknown UNKNOWN Verified 02/21/18 10:32 codeine AdvReac Mild ITCHING, Verified 04/26/20 12:23 NAUSEA Home Medications Home Medications Medication Instructions Recorded Confirmed Type aspirin [Aspirin Low Dose] 81 mg PO QAM #0 12/28/11 04/26/20 History meclizine 12.5 mg PO TID PRN 10 Days #30 tab 09/26/16 04/26/20 History amiodarone 200 mg tablet 200 mg PO QAM tab 06/05/19 04/26/20 History irbesartan 300 mg tablet 300 mg PO QAM #30 tab 11/05/19 04/26/20 Rx albuterol sulfate 90 mcg/actuation 2 puff INHALATION Q6H PRN #18 gm 11/19/19 04/26/20 Rx aerosol inhaler atorvastatin 40 mg tablet 40 mg PO QAM #30 tab 11/27/19 04/26/20 Rx levothyroxine 50 mcg tablet 50 mcg PO DAILY #30 tab 11/27/19 04/26/20 Rx OneTouch Ultra Blue Test Strip #500 ea NS 12/01/19 03/24/20 Rx torsemide 20 mg tablet 40 mg PO BID #120 tab 12/01/19 04/26/20 Rx insulin syringe-needle U-100 1 mL #200 ea 12/04/19 03/24/20 Rx 31 gauge x 5/16" ezetimibe 10 mg tablet 10 mg PO QAM #90 tab 02/17/20 04/26/20 Rx ferrous sulfate 325 mg (65 mg 325 mg PO DAILY #90 tab 02/17/20 04/26/20 Rx iron) tablet apixaban 5 mg tablet 5 mg PO Q12H #60 tab 02/20/20 04/26/20 Rx metoprolol tartrate 100 mg tablet 100 mg PO BID #60 tab 03/16/20 04/26/20 Rx pantoprazole 40 mg tablet,delayed 40 mg PO DAILY #30 tab 03/23/20 04/26/20 Rx release calcitriol 0.25 mcg capsule 0.25 mcg PO UD #45 cap 03/24/20 04/26/20 Rx cyanocobalamin (vitamin B-12) 1,000 mcg PO DAILY 03/24/20 04/26/20 History 1,000 mcg tablet,extended release insulin aspart U-100 [Novolog 0 unit SUBCUT UD 03/31/20 04/26/20 History U-100 Insulin aspart] multivitamin with folic acid 1 tab PO DAILY 03/31/20 04/26/20 History magnesium chloride 64 mg 64 mg PO BID #90 tab 04/02/20 04/26/20 Rx (magnesium chloride) tablet,delayed release Lantus U-100 Insulin 0 units SQ DAILY 04/26/20 04/26/20 History Past Med/Surg History Medical History Atrial fibrillation (Acute) follows with Dr. Rapp---on eliquis Atrial flutter hx of Chronic anticoagulation (Chronic) Chronic obstructive pulmonary disease inhaler prn Chronic pain of left knee (Chronic) DJD Degenerative disc disease Diabetes mellitus, type 2 Diabetic foot ulcer associated with type 2 diabetes mellitus Diastolic CHF Hyperlipidemia Hypertension Hypothyroidism Lumbar radicular pain (Chronic) Myofascial pain (Chronic) Nausea and vomiting after administration of anesthetic agent Obesity On anticoagulant therapy eliquis daily Osteoarthritis Spinal stenosis Spinal stenosis of lumbar region (Chronic) TIA (transient ischemic attack) (Resolved 07/14/14) Surgical History History of cardioversion x2 History of carpal tunnel surgery of left wrist History of colonoscopy with polypectomy History of lumpectomy of right breast benign History of tooth extraction most teeth removed--full upper denture/partial lower History of total hysterectomy with bilateral salpingo-oophorectomy (BSO) Family History Sister Family history of reaction to anesthesia nausea/vomiting Hypothyroidism Father Family history of reaction to anesthesia nausea/vomiting Family hx colonic polyps Hypertension Mother Diabetes Hypertension Denies family history of Breast cancer Colorectal cancer Social History Preferred Language: Belarusian Communication Ability: Effective 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 Beliefs That Will Affect Care: None Current Living Situation: Family current occupational status: retired Other Information That Helps Us Care for You: No Feels Safe at Home: Yes Safety Concerns: Feels Safe At This Time Smoking Status: Former smoker Tobacco Type: e-cigarettes ; Do You Dip or Chew Tobacco: No ; Second Hand Exposure: Yes ; Tobacco Cessation Education Requested by Patient: No Hx Alcohol Use: Yes Alcohol type: beer and wine Hx Substance Use: No Review of Systems Review of Systems: All systems reviewed & are unremarkable except as noted in HPI & below Physical Exam Constitutional: well developed and + morbidly obese; + not well nourished and no acute distress Eyes: PERRL, conjunctivae normal, anicteric sclerae ENMT: external ear and nose normal, oropharynx normal Neck: trachea midline, + short neck and + thick neck Respiratory: normal respiratory effort; no respiratory distress Auscultation: + diminished lung sounds (bibasal); no crackles and no wheezes Cardiovascular: Rate/Rhythm: regular rhythm and + tachycardic Heart Sounds: no murmur Vessels: no JVD (unable to adequately assess with neck size) Extremities: normal capillary refill and + pedal edema (3+ b/l pitting to thighs); no calf tenderness Gastrointestinal (Abdomen): Inspection/Auscultation: normal bowel sounds Percussion/Palpation: abdomen soft; abdomen nontender, no guarding and abdomen not rigid Musculoskeletal: no cyanosis or clubbing, extremities motor strength 5/5 Skin: b/l lower extremity edema and erythema with bright red and warmth surrounding open skin tear on right posterior calf approximately 10cm in diameter Erythematous follicular pattern on b/l forearms and thighs. Crusting present on b/l forearms with excoriation avilez, skin thickening with crusting present on left elbow consistent with psoriatic plaque Neurologic: moves all extremities and awake; no focal motor deficits Motor/Sensory: + sensory deficit (stocking distribution numbness to ankles b/l equal) Psychiatric: A+Ox3, euthymic affect Genitourinary: no CVA tenderness Lymphatic: no cervical or axillary lymphadenopathy Results & Data Results & Data ([facility]) Vital Signs (Past 12 Hours) Vital Signs Temp Pulse Pulse Resp BP BP Pulse Ox 04/26/20 14:49 118 H 22 143/87 H 98 04/26/20 12:53 121 H 22 124/80 92 04/26/20 11:33 36.9 C 121 H 22 125/67 94 Diagnostic Findings XR chest 1V portable IMPRESSION: Congestive heart failure ECG Rate (beats per minute): 119 Rhythm: atrial flutter Findings: + acute ischemic change (Non-specific TW abn in inferolateral leads) Comparison ECG Date: from (April 01, 2020) Change: the following changes noted (Atrial flutter replaced sinus rhythm with non specific TW abnormalities in interolateral leads) Code Status & VTE Plan Code Status All treatment outside of a cardiac arrest VTE Prophylaxis Plan VTE Prophylaxis will be ordered: Yes PG Care Time/CCT Total # of Minutes Spent Total Time Spent with Patient: Total time spent is greater than 50% in coordination of care (as documented) at patient's floor/unit and/or counseling patient: Coding Level of Care Code 41773 Initial Inpt Care Lvl 3 Diagnoses Atrial flutter with rapid ventricular response I48.92 Cellulitis of right lower extremity L03.115 Acute on chronic diastolic heart failure I50.33 Folliculitis L73.9 Hypothyroidism E03.9 HTN (hypertension) I10 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
--- NOTE | 2020-04-26 15:48 | Cardiology Consultation ---
Date of Consultation April 26, 2020 Assessment & Plan (1) Atrial flutter, paroxysmal: (2) Acute on chronic diastolic (congestive) heart failure: (3) Cellulitis of right lower extremity: (4) Chronic anticoagulation: 64-year-old female admitted with atrial flutter and rapid ventricular response with acute on chronic diastolic congestive heart failure and acute lower extremity cellulitis. Recommend electrophysiology consultation to consider flutter ablation. Continue Eliquis 5 mg twice daily. Initiate IV diuretic therapy, Lasix 60 mg twice daily. Follow daily weight, fluid balance, GFR, and electrolytes. Antibiotic therapy as for internal medicine. Update resting 2D transthoracic echocardiogram. Continue telemetry monitoring during hospitalization. Thank you for allowing me to participate in the care of your patient. History of Present Illness Reason for Consultation: Atrial flutter Requesting Physician: Dr. Mcgill Attending Physician: Dr. Mcgill History of Present Illness 64-year-old female presented to her outpatient sap bw consultant office today for r outine follow-up. During that visit patient was noted to be in atrial flutter with rapid ventricular response. Patient relatively asymptomatic. Reports bilateral lower extremity erythema and discomfort beginning approximately 48 hours ago. Denies fever or chills. ECG demonstrates atrial flutter with 2-1 conduction. She is currently treated with amiodarone, metoprolol, and apixaban. Patient is relatively asymptomatic from a cardiovascular perspective. Denies palpitations or chest discomfort. Reports dyspnea with exertion that is unchanged. Admits to sedentary lifestyle. She has gained nearly 40 pounds since her recent hospitalization March. Patient underwent external direct- current cardioversion on March 31. Denies orthopnea, PND, lightheadedness, dizziness, syncope, or near syncope. Allergies Allergy/AdvReac Type Severity Reaction Status Date / Time amoxicillin Allergy Severe SOB, RASH Verified 04/26/20 12:23 Penicillins Allergy Severe SOB, RASH Verified 04/26/20 12:23 clarithromycin Allergy Intermediate "feels Verified 04/26/20 12:23 like flying high" clindamycin Allergy Intermediate "feels Verified 04/26/20 12:23 like flying high" fluconazole Allergy Intermediate "feels Verified 04/26/20 12:23 like flying high" sulfamethoxazole Allergy Intermediate "feels Verified 04/26/20 12:23 like flying high" trimethoprim Allergy Intermediate "feels Verified 04/26/20 12:23 like flying high" Bactrim Allergy Unknown UNKNOWN Verified 02/21/18 10:32 codeine AdvReac Mild ITCHING, Verified 04/26/20 12:23 NAUSEA Home Medications Home Medications Medication Instructions Recorded Confirmed Type aspirin [Aspirin Low Dose] 81 mg PO QAM #0 12/28/11 04/26/20 History meclizine 12.5 mg PO TID PRN 10 Days #30 tab 09/26/16 04/26/20 History amiodarone 200 mg tablet 200 mg PO QAM tab 06/05/19 04/26/20 History irbesartan 300 mg tablet 300 mg PO QAM #30 tab 11/05/19 04/26/20 Rx albuterol sulfate 90 mcg/actuation 2 puff INHALATION Q6H PRN #18 gm 11/19/19 04/26/20 Rx aerosol inhaler atorvastatin 40 mg tablet 40 mg PO QAM #30 tab 11/27/19 04/26/20 Rx levothyroxine 50 mcg tablet 50 mcg PO DAILY #30 tab 11/27/19 04/26/20 Rx OneTouch Ultra Blue Test Strip #500 ea NS 12/01/19 03/24/20 Rx torsemide 20 mg tablet 40 mg PO BID #120 tab 12/01/19 04/26/20 Rx insulin syringe-needle U-100 1 mL #200 ea 12/04/19 03/24/20 Rx 31 gauge x 5/16" ezetimibe 10 mg tablet 10 mg PO QAM #90 tab 02/17/20 04/26/20 Rx ferrous sulfate 325 mg (65 mg 325 mg PO DAILY #90 tab 02/17/20 04/26/20 Rx iron) tablet apixaban 5 mg tablet 5 mg PO Q12H #60 tab 02/20/20 04/26/20 Rx metoprolol tartrate 100 mg tablet 100 mg PO BID #60 tab 03/16/20 04/26/20 Rx pantoprazole 40 mg tablet,delayed 40 mg PO DAILY #30 tab 03/23/20 04/26/20 Rx release calcitriol 0.25 mcg capsule 0.25 mcg PO UD #45 cap 03/24/20 04/26/20 Rx cyanocobalamin (vitamin B-12) 1,000 mcg PO DAILY 03/24/20 04/26/20 History 1,000 mcg tablet,extended release insulin aspart U-100 [Novolog 0 unit SUBCUT UD 03/31/20 04/26/20 History U-100 Insulin aspart] multivitamin with folic acid 1 tab PO DAILY 03/31/20 04/26/20 History magnesium chloride 64 mg 64 mg PO BID #90 tab 04/02/20 04/26/20 Rx (magnesium chloride) tablet,delayed release Lantus U-100 Insulin 0 units SQ DAILY 04/26/20 04/26/20 History Patient History Medical History Atrial fibrillation (Acute) follows with Dr. Rapp---on eliquis Atrial flutter hx of Chronic anticoagulation (Chronic) Chronic obstructive pulmonary disease inhaler prn Chronic pain of left knee (Chronic) DJD Degenerative disc disease Diabetes mellitus, type 2 Diabetic foot ulcer associated with type 2 diabetes mellitus Diastolic CHF Hyperlipidemia Hypertension Hypothyroidism Lumbar radicular pain (Chronic) Myofascial pain (Chronic) Nausea and vomiting after administration of anesthetic agent Obesity On anticoagulant therapy eliquis daily Osteoarthritis Spinal stenosis Spinal stenosis of lumbar region (Chronic) TIA (transient ischemic attack) (Resolved 07/14/14) Surgical History History of cardioversion x2 History of carpal tunnel surgery of left wrist History of colonoscopy with polypectomy History of lumpectomy of right breast benign History of tooth extraction most teeth removed--full upper denture/partial lower History of total hysterectomy with bilateral salpingo-oophorectomy (BSO) Family History Sister Family history of reaction to anesthesia nausea/vomiting Hypothyroidism Father Family history of reaction to anesthesia nausea/vomiting Family hx colonic polyps Hypertension Mother Diabetes Hypertension Denies family history of Breast cancer Colorectal cancer Social History Preferred Language: Kittitian Communication Ability: Effective 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 Beliefs That Will Affect Care: None Current Living Situation: Family current occupational status: retired Other Information That Helps Us Care for You: No Feels Safe at Home: Yes Safety Concerns: Feels Safe At This Time Smoking Status: Former smoker Tobacco Type: e-cigarettes ; Do You Dip or Chew Tobacco: No ; Second Hand Exposure: Yes ; Tobacco Cessation Education Requested by Patient: No Hx Alcohol Use: Yes Alcohol type: beer and wine Hx Substance Use: No Review of Systems Review of Systems: All systems reviewed & are unremarkable except as noted in HPI & below Physical Exam Constitutional: well developed, well nourished and + morbidly obese; no acute distress and not ill appearing Respiratory: normal respiratory effort, lungs clear to auscultation Cardiovascular: Rate/Rhythm: regular rate, regular rhythm and + tachycardic Heart Sounds: normal S1 and normal S2; no murmur Vessels: no JVD Extremiti es: + edema (+ Bilateral erythema with mild pretibial edema.) Gastrointestinal (Abdomen): Inspection/Auscultation: abdomen normal to i nspection and normal bowel sounds; abdomen not distended Percussion/Palpation: abdomen soft; abdomen nontender, no guarding and abdomen not rigid Musculoskeletal: no cyanosis or clubbing, extremities motor strength 5/5 Skin: + rash (Bilateral upper extremities) Bilateral anterior tibial erythema extending to her feet with mild pedal edema Neurologic: CN's II-XI intact bilaterally and moves all extremities; no focal motor deficits Speech / Cognition: normal speech Motor/Sensory: no tremor Psychiatric: A+Ox3, euthymic affect Results & Data ([facility]) Vital Signs (Past 12 Hours) Vital Signs Temp Pulse Pulse Resp BP BP Pulse Ox 04/26/20 14:49 118 H 22 143/87 H 98 04/26/20 12:53 121 H 22 124/80 92 04/26/20 11:33 36.9 C 121 H 22 125/67 94
[2020-04-26] MEDS ORDERED: POLYETHYLENE (MIRALAX) 17 GM PACK PO PRN (16:38)
[2020-04-26] MEDS ORDERED: GLUCAGON FOR INJ 1 MG VIAL SQ PRN (16:38)
[2020-04-26] MEDS ORDERED: GLUCOSE 10 TABS/TUBE PO PRN (16:38)
[2020-04-26] MEDS ORDERED: ALUMINUM/MAGNESIUM SUSP 30 ML UDC PO PRN (16:38)
[2020-04-26] MEDS ORDERED: CARBOHYDRATES FOR HYPOGLYCEMIA PO PRN (16:38)
[2020-04-26] MEDS ORDERED: GLUCOSE 40% GEL 15 GM TUBE PO PRN (16:38)
[2020-04-26] MEDS ORDERED: ACETAMINOPHEN 325 MG TAB PO PRN (16:38)
[2020-04-26] MEDS ORDERED: DEXTROSE 50% 50 ML SYRINGE IV PRN (16:38)
[2020-04-26] MEDS ORDERED: MAGNESIUM HYDROXIDE SUSP 30 ML UDC PO PRN (16:38)
[2020-04-26] MEDS ORDERED: FUROSEMIDE 40 MG/4 ML VIAL IV SCH (17:00)
[2020-04-26] MEDS: FUROSEMIDE 60 MG in SYRINGE 0 ML IV SCH (17:08)
[2020-04-26] MEDS: cefTRIAXone SODIUM 2,000 MG in DEXTROSE 5% 50 ML IV SCH (17:08)
[2020-04-26] MEDS: INSULIN ASPART 100 UNITS/ML 3 ML PEN SC SCH ×2 (18:04→21:05)
[2020-04-26] MEDS: APIXABAN 5 MG TABLET PO SCH (21:05)
[2020-04-26] MEDS: METOPROLOL TARTRATE 100 MG TAB PO SCH (21:05)
[2020-04-26] MEDS: MAGNESIUM CHLORIDE 64MG DELAYED REL TAB PO SCH (21:05)
--- NOTE | 2020-04-27 06:26 | Electrocardiogram Report ---
Test Reason : Blood Pressure : / mmHG Vent. Rate : 119 BPM Atrial Rate : 238 BPM P-R Int : 000 ms QRS Dur : 076 ms QT Int : 376 ms P-R-T Axes : 115 060 051 degrees QTc Int : 528 ms Atrial flutter with 2:1 A-V conduction Nonspecific ST and T wave abnormality Prolonged QT Abnormal ECG When compared with ECG of 01-APR-2020 13:15, Atrial flutter has replaced Sinus rhythm Vent. rate has increased BY 58 BPM Nonspecific T wave abnormality now evident in Inferior leads Nonspecific T wave abnormality now evident in Lateral leads Confirmed by Mo Oviedo ([id number]) on 04/27/2020 6:26:36 AM Referred By: Confirmed By:oM Oviedo
[2020-04-27] MEDS: LEVOTHYROXINE SODIUM 50 MCG TABLET PO SCH (06:36)
[2020-04-27] MEDS ORDERED: PERFLUTREN LIPID MICROSPHERE (DEFINITY) IV ONE (06:59)
[2020-04-27 07:17] LABS: BUN Creatinine Ratio 17.6 (10-20); Calcium 8.3 mg/dl (8.5-10.1); Creatinine Clr Calc Pharmacy 60.4 ml/min; Est GFR (African American) 45.5; Est GFR (Non-African American) 39.3
[2020-04-27] MEDS: INSULIN ASPART 100 UNITS/ML 3 ML PEN SC SCH ×4 (08:24→21:24)
[2020-04-27] MEDS: IRBESARTAN 150 MG TAB PO SCH (08:25)
[2020-04-27] MEDS: AMIODARONE 200 MG TAB PO SCH (08:25)
[2020-04-27] MEDS: APIXABAN 5 MG TABLET PO SCH ×2 (08:25→21:10)
[2020-04-27] MEDS: ASPIRIN 81 MG ECTAB PO SCH (08:25)
[2020-04-27] MEDS: FUROSEMIDE 60 MG in SYRINGE 0 ML IV SCH ×2 (08:26→17:03)
[2020-04-27] MEDS: ATORVASTATIN 40 MG TAB PO SCH (08:26)
[2020-04-27] MEDS: PANTOprazole 40 MG TAB PO SCH (08:26)
[2020-04-27] MEDS: METOPROLOL TARTRATE 100 MG TAB PO SCH ×2 (08:26→21:09)
[2020-04-27] MEDS: FERROUS SULFATE 325 MG TAB PO SCH (08:26)
[2020-04-27] MEDS: MULTIVITAMIN TAB PO SCH (08:26)
[2020-04-27] MEDS: CYANOCOBALAMIN 500 MCG TABLET (VITAMIN B-12) PO SCH (08:27)
[2020-04-27] MEDS: EZETIMIBE 10 MG TABLET PO SCH (08:27)
[2020-04-27] MEDS: MAGNESIUM CHLORIDE 64MG DELAYED REL TAB PO SCH ×2 (08:27→21:09)
[2020-04-27] MEDS: CALCITRIOL 0.25 MCG CAPSULE PO SCH (08:27)
[2020-04-27] MEDS ORDERED: INSULIN GLARGINE SOLOSTAR 100 UNITS/ML 3 ML PEN SC ONE (09:20)
[2020-04-27] MEDS ORDERED: APIXABAN 5 MG TABLET PO STA (11:03)
--- NOTE | 2020-04-27 11:11 | Cardiology Progress Note ---
Date of Service April 27, 2020 Assessment & Plan (1) Atrial flutter, paroxysmal: (2) Acute on chronic diastolic (congestive) heart failure: (3) Cellulitis of right lower extremity: (4) Chronic anticoagulation: Electrophysiology consultation appreciated. Plan for flutter ablation in a.m. . Continue anticoagulation with Eliquis uninterrupted. Patient will receive 5 mg of Eliquis x1 now. Continue IV Lasix, 60 mg twice daily. Follow daily weight, fluid balance, GFR, and electrolytes. Antibiotic therapy as per internal medicine. Update resting 2D transthoracic echocardiogram. Subjective Patient seen examined at bedside. Denies chest pain or shortness of breath. Unaware of her atrial flutter. Telemetry confirms atrial flutter with rapid ventricular response and an average heart rate of approximately 115 bpm. Lower extremity erythema mildly improved. Fluid balance -1 L since admission. No signs/symptoms of GI/ blood loss. She offers no other concerns/complaints at this time. Review of Systems Review of Systems: All systems reviewed & are unremarkable except as noted in HPI & below Physical Exam Constitutional: well developed, well nourished and + morbidly obese; no acute distress and not ill appearing Respiratory: normal respiratory effort, lungs clear to auscultation Cardiovascular: Rate/Rhythm: regular rate, regular rhythm and + tachycardic Heart Sounds: normal S1 and normal S2; no murmur Vessels: no JVD Extremities: + edema (+ Bilateral erythema with mild pretibial edema.) Gastrointestinal (Abdomen): Inspection/Auscultation: abdomen normal to insp ection and normal bowel sounds; abdomen not distended Percussion/Palpation: abdomen soft; abdomen nontender, no guarding and abdomen not rigid Musculoskeletal: no cyanosis or clubbing, extremities motor strength 5/5 Skin: + rash (Bilateral upper extremities) Neurologic: CN's II-XI intact bilaterally and moves all extremities; no focal motor deficits Speech / Cognition: normal speech Motor/Sensory: no tremor Psychiatric: A+Ox3, euthymic affect Results & Data Vital Signs (Past 12 Hours) Vital Signs Temp Pulse Resp BP BP Pulse Ox 04/27/20 07:36 36.4 C L 86 22 118/82 90 04/27/20 03:05 36.5 C 115 H 20 110/67 94 04/26/20 23:25 36.5 C 120 H 20 109/71 96
--- NOTE | 2020-04-27 11:17 | Hospitalist Progress Note ---
Date of Service April 27, 2020 Assessment & Plan (1) Atrial flutter with rapid ventricular response: Appreciate cardiology consult. Plan for flutter ablation in AM. Continue amiodarone, metoprolol. (2) Acute on chronic diastolic heart failure: Given 1L NSS bolus in ER. Weight increased from 150 to 167 kg since prior admission 1 month ago. Pulmonary edema noted on CXR. 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 Given extent of skin covered and Majocchi's granuloma changes will treat with both topical clotrimazole cream on forearms in addition to PO terbinafine 250mg PO daily for 2 weeks and follow up with PCP for resolution (4) Tinea cruris: Use nystatin powder under skin folds Start terbinafine 250mg PO daily for 2 weeks as above (5) Cellulitis of right lower extremity: Ceftriaxone 2g IV daily, switch to PO keflex on discharge RLE appears less cellulitis compared to yesterday. More consistent with just venous stasis changes. 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 Start terbinafine 250mg PO daily Continue IV ceftriaxone as above (can switch to keflex on discharge). (7) Hypothyroidism: Continue levothyroxine 50 mcg PO daily (8) HTN (hypertension): Continue her usual outpatient medications with metoprolol and irbesartan in addition to lasix as above (9) Uncontrolled type 2 diabetes mellitus with kidney complication, with long- term current use of insulin: HbA1C 8.5 [03/2020] Hypoglycemic on admission Novolog sliding scale; will loosen coverage slightly from last admission. Carb ratio 7, correction 20. Aim Hypoglycemic this morning therefore will give much reduced dose of Lantus 20 units, Again will dose in AM depending on time of ablation and glucose measurements overnight. (10) DVT prophylaxis: Continue chronic anticoagulation with apixaban 5mg BID Admission and Anticipated Discharge Date Admission Date: April 26, 2020 Subjective Patient feeling much the same today. No chest pain or shortness of breath at rest. No palpitations or PND. Orthopnea at baseline. No change in bilateral leg swelling. No change in rash. Review of Systems Review of Systems: All systems reviewed & are unremarkable except as noted in HPI & below Physical Exam Constitutional: well developed and + morbidly obese; + not well nourished and no acute distress Eyes: + anicteric sclerae; normal pupil size ENMT: external ear and nose normal, oropharynx normal Neck: trachea midline, + short neck and + thick neck Respiratory: normal respiratory effort; no respiratory distress Auscultation: + diminished lung sounds (bibasal); no crackles and no wheezes Cardiovascular: Rate/Rhythm: regular rhythm and + tachycardic Heart Sounds: no murmur Vessels: no JVD (unable to adequately assess with neck size) Extremities: normal capillary refill and + pedal edema (3+ b/l pitting to thighs, no change from yesterday); no calf tenderness Gastrointestinal (Abdomen): Inspection/Auscultation: normal bowel sounds Percussion/Palpation: abdomen soft; abdomen nontender, no guarding and abdomen not rigid Musculoskeletal: no cyanosis or clubbing, extremities motor strength 5/5 Skin: No change in follicular and plaque rash on legs and bilateral forearms Improved erythema around skin tear on right posterior lower extremity, warmth similar to left side, no definitive cellulitic changes Neurologic: moves all extremities and awake; no focal motor deficits Motor/Sensory: + sensory deficit (stocking distribution numbness to ankles b/l equal) Psychiatric: A+Ox3, euthymic affect Results & Data Results & Data ([facility]) Vital Signs (Past 12 Hours) Vital Signs Temp Pulse Resp BP BP Pulse Ox 04/27/20 07:36 36.4 C L 86 22 118/82 90 04/27/20 03:05 36.5 C 115 H 20 110/67 94 04/26/20 23:25 36.5 C 120 H 20 109/71 96 PG Care Time/CCT Total # of Minutes Spent Total Time Spent with Patient: Total time spent is greater than 50% in c oordination of care (as documented) at patient's floor/unit and/or counseling patient: Coding Level of Care Code 50488 Subseq Hosp Care Lvl 3 Diagnoses Atrial flutter with rapid ventricular response I48.92 Acute on chronic diastolic heart failure I50.33 Tinea corporis B35.4 Tinea cruris B35.6 Cellulitis of right lower extremity L03.115 Folliculitis L73.9 Hypothyroidism E03.9 HTN (hypertension) I10 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
[2020-04-27] MEDS: NYSTATIN POWDER 15GM BTL EXT SCH ×2 (12:40→21:11)
[2020-04-27] MEDS: CLOTRIMAZOLE 1% CR 15 GM TUBE EXT SCH ×2 (12:40→21:12)
[2020-04-27] MEDS: cefTRIAXone SODIUM 2,000 MG in DEXTROSE 5% 50 ML IV SCH (17:09)
[2020-04-28] MEDS: LEVOTHYROXINE SODIUM 50 MCG TABLET PO SCH (05:44)
[2020-04-28 08:02] LABS: BUN Creatinine Ratio 18.8 (10-20); Calcium 8.6 mg/dl (8.5-10.1); Creatinine Clr Calc Pharmacy 55.8 ml/min; Est GFR (African American) 41.6; Est GFR (Non-African American) 35.9; Potassium 4.3 mmol/L (3.5-5.1)
[2020-04-28] MEDS: INSULIN ASPART 100 UNITS/ML 3 ML PEN SC SCH ×4 (08:37→20:59)
[2020-04-28] MEDS: ATORVASTATIN 40 MG TAB PO SCH (08:56)
[2020-04-28] MEDS: MAGNESIUM CHLORIDE 64MG DELAYED REL TAB PO SCH ×2 (08:56→20:47)
[2020-04-28] MEDS: FUROSEMIDE 60 MG in SYRINGE 0 ML IV SCH ×2 (08:56→18:49)
[2020-04-28] MEDS: EZETIMIBE 10 MG TABLET PO SCH (08:56)
[2020-04-28] MEDS: PANTOprazole 40 MG TAB PO SCH (08:56)
[2020-04-28] MEDS: FERROUS SULFATE 325 MG TAB PO SCH (08:56)
--- NOTE | 2020-04-28 08:56 | Hospitalist Progress Note ---
Date of Service April 28, 2020 Assessment & Plan (1) Atrial flutter with rapid ventricular response: Appreciate cardiology consult. Plan for flutter ablation 04/28 Continue amiodarone, metoprolol. Apixaban uninterrupted (2) Acute on chronic diastolic heart failure: Given 1L NSS bolus in ER. Weight increased from 150 to 167 kg since prior admission 1 month ago. Pulmonary edema noted on admission CXR. Daily weights, I&Os (negative 1L since admission) Continue lasix 60mg IV BID Continue metoprolol tartrate 100mg BID -> consider switching to succinate with cardiology cardiology Continue irbesartan (3) Tinea corporis: both topical clotrimazole cream on forearms in addition to PO terbinafine 250mg PO daily for 2 weeks and follow up with PCP for resolution (4) Tinea cruris: Use nystatin powder under skin folds Start terbinafine 250mg PO daily for 2 weeks as above (5) Cellulitis of right lower extremity: Ceftriaxone 2g IV daily, switch to PO keflex on discharge RLE appears less cellulitis compared to yesterday. More consistent with venous stasis dermatitis changes. Recommend completion of 5-7 days antibiotics for this and folliculitis (6) Hypothyroidism: Continue levothyroxine 50 mcg PO daily (7) HTN (hypertension): Continue her usual outpatient medications with metoprolol and irbesartan in addition to lasix as above (8) Uncontrolled type 2 diabetes mellitus with kidney complication, with long- term current use of insulin: HbA1C 8.5 [03/2020] Hypoglycemic on admission Novolog sliding scale; will loosen coverage slightly from last admission. Carb ratio 7, correction 20. Aim Patient was given dose of Lantus on 04/27 her blood sugars are in the 80s but she was n.p.o. for procedures. Continue to watch for need for long-acting insulin. (9) DVT prophylaxis: Continue chronic anticoagulation with apixaban 5mg BID Admission and Anticipated Discharge Date Admission Date: April 26, 2020 Subjective Patient seen exam at the bedside. some anxiety about her procedure. . Lower extremity erythema and edema mild. pt with successful ablation Review of Systems Review of Systems: Mild distress no headache, blurry or double vision no speech or swallowing issues no chest pain, pressure or sensation of palpitations Mild shortness of breath, cough or wheezes no abdominal pain, nausea or vomiting, diarrhea or constipation no dysuria, hematuria or frequency no focal joint pain patient 1+ bilateral swelling no back pain, CVA tenderness or radicular pain Prep changes of chronic venous stasis dermatitis no focal signs of weakness or numbness or altered sensation no complaints or anxiety or depression. Physical Exam Physical Exam: The patient appeared well nourished and normally developed. Vital signs as documented. Head exam is normocephalic atraumatic no scleral icterus Neck is without JVD, thyromegaly, or carotid bruits. Lungs are clear to auscultation, no focal loss of breath sounds Cardiac exam, tachycardic and irregular Abdominal exam reveals normal bowel sounds, soft non tender, no masses Extremities are mildly edematous and both pedal pulses are normal. Neurologic exam is alert and oriented, no focal loss of strength or sensation Skin is with bilateral lower extremity erythema Psychologically is without concerns for anxiety or depression Results & Data Results & Data ([facility]) Vital Signs (Past 12 Hours) Vital Signs Temp Pulse Pulse Resp BP Pulse Ox 04/28/20 07:41 98.1 F 118 H 19 109/72 96 04/28/20 03:35 97.9 F 113 H 20 95/53 L 94 04/28/20 00:37 97.9 F 110 H 21 91/54 L 93 04/27/20 21:17 120 H 109/65 PG Care Time/CCT Total # of Minutes Spent Total Time Spent with Patient: Total time spent is greater than 50% in coordination of care (as documented) at patient's floor/unit and/or counseling patient: Coding Level of Care Code 24490 Subseq Hosp Care Lvl 3 Diagnoses Atrial flutter with rapid ventricular response I48.92 Acute on chronic diastolic heart failure I50.33 Tinea corporis B35.4 Tinea cruris B35.6 Cellulitis of right lower extremity L03.115 Hypothyroidism E03.9 HTN (hypertension) I10 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
[2020-04-28] MEDS: MULTIVITAMIN TAB PO SCH (08:57)
[2020-04-28] MEDS: ASPIRIN 81 MG ECTAB PO SCH (08:57)
[2020-04-28] MEDS: IRBESARTAN 150 MG TAB PO SCH (08:57)
[2020-04-28] MEDS: AMIODARONE 200 MG TAB PO SCH (08:57)
[2020-04-28] MEDS: METOPROLOL TARTRATE 100 MG TAB PO SCH ×2 (08:57→20:46)
[2020-04-28] MEDS: CLOTRIMAZOLE 1% CR 15 GM TUBE EXT SCH ×2 (08:57→20:50)
[2020-04-28] MEDS: CYANOCOBALAMIN 500 MCG TABLET (VITAMIN B-12) PO SCH (08:57)
[2020-04-28] MEDS: APIXABAN 5 MG TABLET PO SCH ×2 (08:57→20:45)
[2020-04-28] MEDS: terbinafine HCL 250 MG TAB PO SCH (08:57)
[2020-04-28] MEDS: NYSTATIN POWDER 15GM BTL EXT SCH ×2 (08:58→20:49)
--- NOTE | 2020-04-28 09:38 | Anesthesiology Consultation ---
Date of Service April 28, 2020 Assessment & Plan (1) Encounter for pre-operative examination: Chart Review Chart Review: Acceptable Risk for Surgery Consults Requested none ASA ASA3 Proposed Anesthesia Anesthesia Type: MAC Risk / Benefits Reviewed With: PT / POA / Parent / Guardian, Accepts Plan and Informed Consent Obtained History Surgery Operation Date: 04/28/20 12:00 Proposed Procedures p Aflutter Ablation w/Mapping - Elena Galarza, Height/Weight Height: 5 ft 5 in Weight: 150.7 kg Allergies Allergy/AdvReac Type Severity Reaction Status Date / Time amoxicillin Allergy Severe SOB, RASH Verified 04/26/20 12:23 Penicillins Allergy Severe SOB, RASH Verified 04/26/20 12:23 clarithromycin Allergy Intermediate "feels Verified 04/26/20 12:23 like flying high" clindamycin Allergy Intermediate "feels Verified 04/26/20 12:23 like flying high" fluconazole Allergy Intermediate "feels Verified 04/26/20 12:23 like flying high" sulfamethoxazole Allergy Intermediate "feels Verified 04/26/20 12:23 like flying high" trimethoprim Allergy Intermediate "feels Verified 04/26/20 12:23 like flying high" Bactrim Allergy Unknown UNKNOWN Verified 02/21/18 10:32 codeine AdvReac Mild ITCHING, Verified 04/26/20 12:23 NAUSEA Medications Home Medications Medication Instructions Recorded Confirmed Last Taken aspirin [Aspirin Low Dose] 81 mg PO QAM #0 12/28/11 04/26/20 03/31/20 09:00 meclizine 12.5 mg PO TID PRN 10 Days #30 tab 09/26/16 04/26/20 07/20/19 amiodarone 200 mg tablet 200 mg PO QAM tab 06/05/19 04/26/20 03/31/20 09:00 irbesartan 300 mg tablet 300 mg PO QAM #30 tab 11/05/19 04/26/20 03/31/20 09:00 albuterol sulfate 90 mcg/actuation 2 puff INHALATION Q6H PRN #18 gm 11/19/19 04/26/20 Unknown aerosol inhaler atorvastatin 40 mg tablet 40 mg PO QAM #30 tab 11/27/19 04/26/20 03/31/20 09:00 levothyroxine 50 mcg tablet 50 mcg PO DAILY #30 tab 11/27/19 04/26/20 03/31/20 09:00 Dynamic [employer] Ultra Blue Test Strip #500 ea NS 12/01/19 03/24/20 Unknown torsemide 20 mg tablet 40 mg PO BID #120 tab 12/01/19 04/26/20 03/31/20 09:00 insulin syringe-needle U-100 1 mL #200 ea 12/04/19 03/24/20 Unknown 31 gauge x 5/16" ezetimibe 10 mg tablet 10 mg PO QAM #90 tab 02/17/20 04/26/20 03/31/20 09:00 ferrous sulfate 325 mg (65 mg 325 mg PO DAILY #90 tab 02/17/20 04/26/20 Unknown iron) tablet apixaban 5 mg tablet 5 mg PO Q12H #60 tab 02/20/20 04/26/20 03/31/20 09:00 metoprolol tartrate 100 mg tablet 100 mg PO BID #60 tab 03/16/20 04/26/20 03/31/20 09:00 pantoprazole 40 mg tablet,delayed 40 mg PO DAILY #30 tab 03/23/20 04/26/20 03/31/20 09:00 release calcitriol 0.25 mcg capsule 0.25 mcg PO UD #45 cap 03/24/20 04/26/20 Unknown cyanocobalamin (vitamin B-12) 1,000 mcg PO DAILY 03/24/20 04/26/20 Unknown 1,000 mcg tablet,extended release insulin aspart U-100 [Novolog 0 unit SUBCUT UD 03/31/20 04/26/20 Unknown U-100 Insulin aspart] multivitamin with folic acid 1 tab PO DAILY 03/31/20 04/26/20 Unknown magnesium chloride 64 mg 64 mg PO BID #90 tab 04/02/20 04/26/20 Unknown (magnesium chloride) tablet,delayed release Lantus U-100 Insulin 0 units SQ DAILY 04/26/20 04/26/20 Unknown Active Medications Generic Name Dose Route Start Last Admin Trade Name Freq PRN Reason Stop Dose Admin Amiodarone HCl 200 mg 04/27/20 09:00 04/28/20 08:57 Cordarone PO 05/27/20 08:59 200 mg QAM [place] Administration Apixaban 5 mg 04/26/20 21:00 04/28/20 08:57 Eliquis PO 05/26/20 20:59 5 mg BID [place] Administration Aspirin 81 mg 04/27/20 09:00 04/28/20 08:57 Ecotrin Ectab PO 05/27/20 08:59 81 mg QAM [place] Administration Atorvastatin Calcium 40 mg 04/27/20 09:00 04/28/20 08:56 Lipitor PO 05/27/20 08:59 40 mg QAM [place] Administration Calcitriol 0.25 mcg 04/27/20 09:00 04/27/20 08:27 Rocaltrol PO 05/27/20 08:59 0.25 mcg SuTuTh@0900 [place] Administration Clotrimazole 1 appln 04/27/20 11:30 04/28/20 08:57 Lotrimin 1% EXT 05/27/20 11:29 1 appln BID [place] Administration Cyanocobalamin 1,000 mcg 04/27/20 09:00 04/28/20 08:57 Vitamin B-12 PO 05/27/20 08:59 1,000 mcg DAILY [place] Administration Ezetimibe 10 mg 04/27/20 09:00 04/28/20 08:56 Zetia PO 05/27/20 08:59 10 mg QAM [place] Administration Ferrous Sulfate 325 mg 04/27/20 09:00 04/28/20 08:56 Feosol PO 05/27/20 08:59 325 mg DAILY [place] Administration Ceftriaxone Sodium 2,000 mg/ 70 mls @ 100 mls/hr 04/26/20 17:00 04/27/20 20:00 Dextrose IV 05/03/20 16:59 Infused Q24H [place] Infusion Protocol Furosemide 60 mg/ Syringe 6 mls @ 4 mls/min 04/26/20 17:00 04/28/20 08:56 IV 05/26/20 16:59 4 mls/min BID17 [place] Administration Insulin Aspart 0 units 04/26/20 16:38 04/28/20 08:37 Novolog Flexpen SC 05/26/20 16:37 Not Given ACHS [place] Irbesartan 300 mg 04/27/20 09:00 04/28/20 08:57 Avapro PO 05/27/20 08:59 300 mg QAM [place] Administration Levothyroxine Sodium 50 mcg 04/27/20 06:30 04/28/20 05:44 Synthroid PO 05/27/20 06:29 50 mcg DAILYBB [place] Administration Magnesium Chloride 64 mg 04/26/20 21:00 04/28/20 08:56 Slow-Mag PO 05/26/20 20:59 64 mg BID [place] Administration Metoprolol Tartrate 100 mg 04/26/20 21:00 04/28/20 08:57 Lopressor PO 05/26/20 20:59 100 mg BID [place] Administration Miscellaneous 15 - 30 gm 04/26/20 16:38 04/27/20 07:34 Carbohydrates For Hypoglycemia PO 05/26/20 16:37 15 gm UD PRN Administration Hypoglycemia Protocol Multivitamins 1 tab 04/27/20 09:00 04/28/20 08:57 Multivitamin Tab PO 05/27/20 08:59 1 tab DAILY [place] Administration Nystatin 1 appln 04/27/20 11:30 04/28/20 08:58 Mycostatin EXT 05/27/20 11:29 1 appln BID [place] Administration Pantoprazole Sodium 40 mg 04/27/20 09:00 04/28/20 08:56 Protonix PO 05/27/20 08:59 40 mg DAILY [place] Administration Terbinafine HCl 250 mg 04/28/20 09:00 04/28/20 08:57 Lamisil PO 05/28/20 08:59 250 mg QAM [place] Administration Past Medical History Medical History Atrial fibrillation (Acute) follows with Dr. Rapp---on eliquis Atrial flutter hx of Chronic anticoagulation (Chronic) Chronic obstructive pulmonary disease inhaler prn Chronic pain of left knee (Chronic) DJD Degenerative disc disease Diabetes mellitus, type 2 Diabetic foot ulcer associated with type 2 diabetes mellitus Diastolic CHF Hyperlipidemia Hypertension Hypothyroidism Lumbar radicular pain (Chronic) Myofascial pain (Chronic) Nausea and vomiting after administration of anesthetic agent Obesity On anticoagulant therapy eliquis daily Osteoarthritis Spinal stenosis Spinal stenosis of lumbar region (Chronic) TIA (transient ischemic attack) (Resolved 07/14/14) Exercise / Class Metabolic Activity III < 4 Walking/Shop/Light housework Past Family History Family History Sister Family history of reaction to anesthesia nausea/vomiting Hypothyroidism Father Family history of reaction to anesthesia nausea/vomiting Family hx colonic polyps Hypertension Mother Diabetes Hypertension Denies family history of Breast cancer Colorectal cancer Past Surgical History Surgical History History of cardioversion x2 History of carpal tunnel surgery of left wrist History of colonoscopy with polypectomy History of lumpectomy of right breast benign History of tooth extraction most teeth removed--full upper denture/partial lower History of total hysterectomy with bilateral salpingo-oophorectomy (BSO) Past Anesthesia History No Hx of Anesthesia Complications and No Family Hx of Anesthesia Complications History of PONV No Hx of PONV and No Hx of Motion Sickness Social History Smoking Status: Former smoker tobacco type: e-cigarettes Do You Dip or Chew Tobacco: No Hx Alcohol Use: Yes Alcohol type: beer and wine alcohol intake frequency: holidays/special occasions only Hx Substance Use: No substance use type: does not use Physical Exam Vital Signs Last Vital Signs Temp 98.1 F 04/28/20 07:41 Pulse 118 H 04/28/20 07:41 Resp 19 04/28/20 07:41 BP 109/72 04/28/20 07:41 Pulse Ox 96 04/28/20 07:41 Constitutional + morbidly obese ENMT Mouth: + dentures (Upper full, lower partial) Thyromental Distance: > or= 3.5 Finger Breadths Mallampati Class: III Neck normal visual inspection Respiratory normal respiratory effort Auscultation: lungs clear to auscultation bilaterally Cardiovascular Rate/Rhythm: + abnormal rate and + abnormal rhythm Testing Laboratory Results 04/26/20 11:54 04/28/20 07:02 PT 11.1 Seconds (9.0-12.0) 04/26/20 11:54 INR 1.1 (0.9-1.1) 04/26/20 11:54 Urine Color Yellow 04/26/20 11:55 Urine Appearance Clear (Clear) 04/26/20 11:55 Urine pH 8.5 (4.5-7.5) H 04/26/20 11:55 Ur Specific [place] 1.012 (1.000-1.030) 04/26/20 11:55 Urine Protein Negative (Negative) 04/26/20 11:55 Urine Glucose (UA) Negative (Negative) 04/26/20 11:55 Urine Ketones Negative (Negative) 04/26/20 11:55 Urine Nitrite Negative (Negative) 04/26/20 11:55 Ur Leukocyte Esterase Negative (Negative) 04/26/20 11:55 04/26/20 16:07 Aerobic Blood Culture - Preliminary Blood No growth in Aerobic bottle after 24 hours. Anaerobic Blood Culture - Final 04/26/20 16:07 Aerobic Blood Culture - Preliminary Blood No growth in Aerobic bottle after 24 hours. Anaerobic Blood Culture - Preliminary No growth in Anaerobic bottle after 24 hours. 04/28/20 07:38 POC Glucose 78 Electrocardiogram Date: 04/26/20 Atrial flutter with 2:1 A-V conduction, rate [address] and T wave abnormality Prolonged QT Abnormal ECG When compared with ECG of 01-APR-2020 13:15, Atrial flutter has replaced Sinus rhythm Vent. rate has increased BY 58 BPM Nonspecific T wave abnormality now evident in Inferior leads Nonspecific T wave abnormality now evident in Lateral leads Confirmed by Mo Oviedo ([id number]) on 04/27/2020 6:26:36 AM Chest X-Ray Date: 04/26/20 FINDINGS: Moderate cardiomegaly. Prominent pulmonary vasculature. Diaphragms are smooth. Costophrenic angles are sharp. IMPRESSION: Congestive heart failure Echocardiogram Date: 04/27/20 The rhythm is atrial flutter with RVR EF 55-60% Moderate concentric LVH RV appears mildly dilated in limited views RV systolic function is qualitatively normal LA is mild dilated Dilated IVC with normal inspiratory variation suggesting a right atrial pressure of 8 mmHg
--- NOTE | 2020-04-28 10:10 | Cardiology Progress Note ---
Date of Service April 28, 2020 Assessment & Plan (1) Atrial flutter, paroxysmal: (2) Acute on chronic diastolic (congestive) heart failure: (3) Cellulitis of right lower extremity: (4) Stage III chronic kidney disease: (5) Chronic anticoagulation: Electrophysiology consultation appreciated. Atrial flutter ablation today 04/28/2020. Continue IV Lasix, 60 mg twice daily. Follow daily weight, fluid balance, GFR, and electrolytes. Antibiotic therapy as per internal medicine. Continue Eliquis 5 mg twice daily uninterrupted. Subjective Patient seen exam at the bedside. No complaints this morning. Fluid balance - 300 cc. Edema mildly improved. Lower extremity erythema unchanged. Denies lower extremity discomfort or pruritus. No fever or chills overnight. Telemetry demonstrates atrial flutter heart rate ranging from 115 220 bpm. Patient denies palpitations. Review of Systems Review of Systems: All systems reviewed & are unremarkable except as noted in HPI & below Physical Exam Constitutional: well developed, well nourished and + morbidly obese; no acute distress and not ill appearing Respiratory: normal respiratory effort, lungs clear to auscultation Cardiovascular: Rate/Rhythm: regular rate, regular rhythm and + tachycardic Heart Sounds: normal S1 and normal S2; no murmur Vessels: no JVD Extremities: + edema (+ Bilateral erythema with mild pretibial edema.) Gastrointestinal (Abdomen): Inspection/Auscultation: abdomen normal to inspection and normal bowel sounds; abdomen not distended Percussion/Palpation: abdomen soft; abdomen nontender, no guarding and abdomen not rigid Musculoskeletal: no cyanosis or clubbing, extremities motor strength 5/5 Skin: + rash (Bilateral upper extremities) Neurologic: CN's II-XI intact bilaterally and moves all extremities; no focal motor deficits Speech / Cognition: normal speech Motor/Sensory: no tremor Psychiatric: A+Ox3, euthymic affect Results & Data Vital Signs (Past 12 Hours) Vital Signs Temp Pulse Resp BP Pulse Ox 04/28/20 07:41 36.7 C 118 H 19 109/72 96 04/28/20 03:35 36.6 C 113 H 20 95/53 L 94 04/28/20 00:37 36.6 C 110 H 21 91/54 L 93
[2020-04-28] MEDS ORDERED: fentaNYL citrate 100 MCG/2 ML VIAL ONE (10:13)
[2020-04-28] MEDS ORDERED: MIDAZOLAM HCL 1 MG/ML 2ML VIAL ONE ×2 (10:13→14:43)
--- NOTE | 2020-04-28 10:50 | History & Physical Bridge Note ---
Date of Service April 28, 2020 History & Physical Bridge Note I have examined the patient, reviewed the History & Physical and in the interval since the performance of the History & Physical I have noted the following changes of clinical significance: pt with persistent atrial flutter for an EPS and atrial flutter ablation; consents signed
[2020-04-28] MEDS ORDERED: ePHEDrine sulfate 50 MG/ML AMP IV PRN (11:15)
[2020-04-28] MEDS ORDERED: ATROPINE SULFATE 0.1 MG/ML 10ML SYR IV PRN (11:15)
[2020-04-28] MEDS ORDERED: ONDANSETRON INJ 2 MG/ML 2 ML VIAL IV PRN (11:15)
[2020-04-28] MEDS ORDERED: fentaNYL citrate 100 MCG/2 ML VIAL IV PRN (11:15)
[2020-04-28] MEDS ORDERED: HEPARIN (PORCINE) 1000 UNIT/ML 10 ML (CATH LAB USE ONLY) ONE (12:48)
[2020-04-28] MEDS ORDERED: LIDOCAINE HCL 2% 2 ML VIAL/AMP(20MG/ML) INFIL ONE (13:23)
[2020-04-28] MEDS ORDERED: ONDANSETRON INJ 2 MG/ML 2 ML VIAL ONE (13:23)
[2020-04-28] MEDS ORDERED: PROPOFOL IV EMULSION 10 MG/ML 20 ML VIAL IV ONE (13:23)
--- NOTE | 2020-04-28 14:10 | Operative Report ---
Post Operative Report Pre & Post Diagnosis Pre: Atrial flutter Post: Sinus bradycardia Operation Date: 04/28/20 12:00 <No data on this case meets the specified criteria> I identified the patient and participated in the time-out.: Yes Procedure Operation Date: 04/28/20 12:00 <No data on this case meets the specified criteria> EPS, atrial flutter ablation, 3d activation mapping Surgeon Elena Galarza, DO Flight Engineer Instructor none Estimated Blood Loss 5 Findings Consistent with Post-Op Diagnosis Specimens none Description of Procedure see official report I attest to the content of the Intraoperative Record and any orders documented therein. Any exceptions are noted below.
[2020-04-28] MEDS ORDERED: PHENYLEPHRINE HCL 10 MG/ML VIAL ONE (14:14)
[2020-04-28] MEDS ORDERED: ePHEDrine sulfate 50 MG/ML SYR ONE (14:15)
[2020-04-28] MEDS ORDERED: MIDAZOLAM HCL 1 MG/ML 2ML VIAL IV PRN (14:44)
--- NOTE | 2020-04-28 14:45 | Anesthesiology Progress Note ---
Date of Service April 28, 2020 Anesthesia Post Procedure Vital Signs Vital Signs: Temp Pulse Pulse Resp BP Pulse Ox 04/28/20 11:14 111 H 20 117/85 92 04/28/20 07:41 98.1 F 118 H 19 109/72 96 04/28/20 03:35 97.9 F 113 H 20 95/53 L 94 04/28/20 00:37 97.9 F 110 H 21 91/54 L 93 04/27/20 21:17 120 H 109/65 04/27/20 19:08 98.1 F 117 H 18 99/65 L 96 04/27/20 15:15 97.5 F L 107 H 18 104/65 97 Transfer of Care Handoff Completed per policy Notes Mental Status: alert / awake / arousable and participated in evaluation Patient Amnestic to Procedure: Yes Nausea / Vomiting: adequately controlled Pain: adequately controlled Airway Patency, RR, SpO2: stable & adequate BP & HR: stable & adequate Hydration State: stable & adequate Anesthetic Complications: no major complications apparent and Pt Satisfied with anesthetic care Notes: Patient was transported to the ICU with oxygen and monitors. VSS during transport. Report was given to Dr. Ross. Care was transferred to the ICU.
[2020-04-28] MEDS: MIDAZOLAM HCL 1 MG/ML 2ML VIAL IV PRN ×2 (14:55→15:58)
[2020-04-28] MEDS: cefTRIAXone SODIUM 2,000 MG in DEXTROSE 5% 50 ML IV SCH (20:42)
[2020-04-29] MEDS: LEVOTHYROXINE SODIUM 50 MCG TABLET PO SCH (05:19)
[2020-04-29 05:23] LABS: Basophils # (auto) 0.04 K/uL (0-0.2); Basophils % (auto) 0.4 %; Eosinophils # (auto) 0.15 K/uL (0-0.5); Eosinophils % (auto) 1.5 %; Hematocrit (blood only) 42.5 % (37-47); Hemoglobin 12.7 g/dL (12.0-16.0); Immature Granulocytes # (auto) 0.04 K/uL (0.00-0.02); Immature Granulocytes % (auto) 0.4 %; Lymphocytes # (auto) 1.41 K/uL (1.2-3.4); Lymphocytes % (auto) 14.3 %; Mean Corpuscular Hemoglobin 29.7 pg (25-34); Mean Corpuscular Hgb Conc 29.9 g/dL (32-36); Mean Corpuscular Volume 99.5 fL (80-100); Mean Platelet Volume 10.5 fL (7.4-10.4); Monocytes # (auto) 1.06 K/uL (0.11-0.59); Monocytes % (auto) 10.8 %; Neutrophils # (auto) 7.13 K/uL (1.4-6.5); Neutrophils % (auto) 72.6 %; Platelet Count 244 K/uL (130-400); RDW Coefficient of Variation 17.3 % (11.5-14.5); Red Blood Count 4.27 M/uL (4.2-5.4); White Blood Count 9.83 K/uL (4.8-10.8)
[2020-04-29 05:45] LABS: BUN Creatinine Ratio 16.6 (10-20); Calcium 8.2 mg/dl (8.5-10.1); Creatinine Clr Calc Pharmacy 36.4 ml/min; Est GFR (African American) 24.8; Est GFR (Non-African American) 21.4; Magnesium 2.5 mg/dl (1.8-2.4); Phosphorus 6.3 mg/dl (2.5-4.9); Potassium 5.1 mmol/L (3.5-5.1)
[2020-04-29] MEDS: INSULIN ASPART 100 UNITS/ML 3 ML PEN SC SCH ×4 (08:24→20:37)
[2020-04-29] MEDS: FUROSEMIDE 60 MG in SYRINGE 0 ML IV SCH (09:16)
[2020-04-29] MEDS: ATORVASTATIN 40 MG TAB PO SCH (09:18)
[2020-04-29] MEDS: AMIODARONE 200 MG TAB PO SCH (09:18)
[2020-04-29] MEDS: terbinafine HCL 250 MG TAB PO SCH (09:19)
[2020-04-29] MEDS: ASPIRIN 81 MG ECTAB PO SCH (09:19)
[2020-04-29] MEDS: MAGNESIUM CHLORIDE 64MG DELAYED REL TAB PO SCH ×2 (09:19→20:31)
[2020-04-29] MEDS: MULTIVITAMIN TAB PO SCH (09:19)
[2020-04-29] MEDS: CALCITRIOL 0.25 MCG CAPSULE PO SCH (09:19)
[2020-04-29] MEDS: PANTOprazole 40 MG TAB PO SCH (09:19)
[2020-04-29] MEDS: CYANOCOBALAMIN 500 MCG TABLET (VITAMIN B-12) PO SCH (09:19)
[2020-04-29] MEDS: EZETIMIBE 10 MG TABLET PO SCH (09:19)
[2020-04-29] MEDS: IRBESARTAN 150 MG TAB PO SCH (09:20)
[2020-04-29] MEDS: METOPROLOL TARTRATE 100 MG TAB PO SCH (09:20)
[2020-04-29] MEDS: APIXABAN 5 MG TABLET PO SCH ×2 (09:20→20:31)
[2020-04-29] MEDS: FERROUS SULFATE 325 MG TAB PO SCH (10:43)
[2020-04-29] MEDS: NYSTATIN POWDER 15GM BTL EXT SCH ×2 (10:43→20:30)
[2020-04-29] MEDS: CLOTRIMAZOLE 1% CR 15 GM TUBE EXT SCH ×2 (10:43→20:31)
[2020-04-29] MEDS: METOCLOPRAMIDE HCL 5 MG TABLET PO SCH ×2 (11:27→17:26)
--- NOTE | 2020-04-29 13:57 | Cardiology Progress Note ---
Date of Service April 29, 2020 Assessment & Plan (1) Atrial flutter, paroxysmal: (2) Acute on chronic diastolic (congestive) heart failure: (3) Cellulitis of right lower extremity: (4) Stage III chronic kidney disease: (5) Chronic anticoagulation: Discontinue amiodarone. Volume status improved with elevated creatinine suggesting volume depletion. Recommend discontinuation of IV Lasix today. Reduce metoprolol tartrate to 75 mg twice daily. Follow daily weight, fluid balance, GFR, and electrolytes. Antibiotic therapy as per internal medicine. Continue Eliquis 5 mg twice daily. Subjective Patient is examined the bedside. Successful atrial flutter ablation performed 04/28/2020. Patient remains in sinus rhythm on telemetry. Feeling nauseated this afternoon. Notes poor appetite. Patient was intubated during procedure due to apnea. She was promptly extubated post procedure without difficulty. Denies chest pain or palpitations. Tolerating current medications. Creatinine trending upward. Review of Systems Review of Systems: All systems reviewed & are unremarkable except as noted in HPI & below Physical Exam Constitutional: well developed, well nourished and + morbidly obese; no acute distress and not ill appearing Respiratory: normal respiratory effort, lungs clear to auscultation Cardiovascular: Rate/Rhythm: regular rate, regular rhythm and + bradycardic Heart Sounds: normal S1 and normal S2; no murmur Vessels: no JVD Extremiti es: + edema (+ Bilateral erythema with mild pretibial edema.) Gastrointestinal (Abdomen): Inspection/Auscultation: abdomen normal to i nspection and normal bowel sounds; abdomen not distended Percussion/Palpation: abdomen soft; abdomen nontender, no guarding and abdomen not rigid Musculoskeletal: no cyanosis or clubbing, extremities motor strength 5/5 Skin: + rash (Bilateral upper extremities) Neurologic: CN's II-XI intact bilaterally and moves all extremities; no focal motor deficits Speech / Cognition: normal speech Motor/Sensory: no tremor Psychiatric: A+Ox3, euthymic affect Results & Data Vital Signs (Past 12 Hours) Vital Signs Temp Pulse Resp BP Pulse Ox 04/29/20 13:01 58 L 19 129/52 L 98 04/29/20 13:00 61 22 96 04/29/20 12:30 57 L 22 71 L 04/29/20 12:01 57 L 21 113/49 L 96 04/29/20 12:00 57 L 20 97 04/29/20 11:30 59 L 27 H 95 04/29/20 11:25 59 L 21 119/61 84 L 04/29/20 11:01 59 L 22 116/51 L 92 04/29/20 11:00 59 L 21 93 04/29/20 10:30 60 19 93 04/29/20 10:07 59 L 20 101/54 L 95 04/29/20 10:00 61 19 04/29/20 09:31 75 24 04/29/20 09:00 60 20 123/64 91 04/29/20 08:48 61 04/29/20 08:30 60 20 96 04/29/20 08:02 60 23 118/45 L 04/29/20 08:00 63 18 04/29/20 07:30 37.2 C 60 19 93 04/29/20 07:00 60 19 118/56 L 04/29/20 06:30 60 21 04/29/20 06:02 58 L 21 88 L 04/29/20 06:00 60 20 114/52 L 93 04/29/20 05:00 61 20 119/49 L 93 04/29/20 04:00 36.6 C 62 18 107/51 L 98 04/29/20 03:00 60 18 108/63 93 04/29/20 02:00 63 17 103/45 L 98
[2020-04-29 14:51] LABS: Calcium 8.5 mg/dl (8.5-10.1); Creatinine Clr Calc Pharmacy 32.2 ml/min; Est GFR (African American) 21.1; Est GFR (Non-African American) 18.2; Potassium 5.6 mmol/L (3.5-5.1)
--- NOTE | 2020-04-29 14:51 | Hospitalist Progress Note ---
Date of Service April 29, 2020 Assessment & Plan (1) Atrial flutter with rapid ventricular response: Appreciate cardiology consult. Flutter ablation 04/28 Continue amiodarone, metoprolol. Apixaban uninterrupted Cardiology is following, metoprolol decreased to 75mg BID (2) Acute on chronic diastolic heart failure: Given 1L NSS bolus in ER. Weight increased from 150 to 167 kg since prior admission 1 month ago. Pulmonary edema noted on admission CXR. Daily weights, I&Os (negative 1L since admission) As per cardiology, d/c amio, lasix Metoprolol decreased as noted above (3) Tinea corporis: both topical clotrimazole cream on forearms in addition to PO terbinafine 250mg PO daily for 2 weeks and follow up with PCP for resolution (4) Tinea cruris: Use nystatin powder under skin folds Start terbinafine 250mg PO daily for 2 weeks as above (5) Cellulitis of right lower extremity: Ceftriaxone 2g IV daily, switch to PO keflex on discharge More consistent with venous stasis dermatitis changes at this point given improvement on abx. Recommend completion of 5-7 days antibiotics for this and folliculitis (6) Hypothyroidism: Continue levothyroxine 50 mcg PO daily (7) HTN (hypertension): Continue her usual outpatient medications with metoprolol and irbesartan (8) Uncontrolled type 2 diabetes mellitus with kidney complication, with long- term current use of insulin: HbA1C 8.5 [03/2020] Hypoglycemic on admission Novolog sliding scale; will loosen coverage slightly from last admission. Carb ratio 7, correction 20. Aim Patient was given dose of Lantus on 04/27 her blood sugars are in the 80s but she was n.p.o. for procedures. Continue to watch for need for long-acting insulin. (9) DVT prophylaxis: Continue chronic anticoagulation with apixaban 5mg BID Admission and Anticipated Discharge Date Admission Date: April 26, 2020 Subjective Pt is having ongoing nausea, but no vomiting. Does not think the reglan is helping yet. Pt denies fever, SOB, chest pain, abd pain, n/v/c/d, LE pain. Did not eat much due to nausea. Feels LE swelling is improved. Review of Systems Review of Systems: Pertinent positives and negatives reviewed in HPI--all others negative Physical Exam Constitutional: WD/WN, vitals as above Eyes: normal visual bacon by confrontation and + anicteric sclerae Neck: normal visual inspection and trachea midline Respiratory: normal respiratory effort, lungs clear to auscultation Cardiovascular: Rate/Rhythm: regular rate and regular rhythm Extremities: + edema (1+ pitting) Gastrointestinal (Abdomen): Inspection/Auscultation: abdomen not distended Percussion/Palpation: abdomen soft; abdomen nontender Musculoskeletal: Head/Neck/Chest: normocephalic and head atraumatic periphe ral pulses intact Skin: no rashes, warm and dry (LE redness c/w chronic venous stasis) Neurologic: awake; not confused Speech / Cognition: normal speech Psychiatric: A+Ox3, euthymic affect Results & Data Results & Data ([facility]) Vital Signs (Past 12 Hours) Vital Signs Temp Pulse Resp BP Pulse Ox 04/29/20 13:01 58 L 19 129/52 L 98 04/29/20 13:00 61 22 96 04/29/20 12:30 57 L 22 71 L 04/29/20 12:01 57 L 21 113/49 L 96 04/29/20 12:00 57 L 20 97 04/29/20 11:30 59 L 27 H 95 04/29/20 11:25 59 L 21 119/61 84 L 04/29/20 11:01 59 L 22 116/51 L 92 04/29/20 11:00 59 L 21 93 04/29/20 10:30 60 19 93 04/29/20 10:07 59 L 20 101/54 L 95 04/29/20 10:00 61 19 04/29/20 09:31 75 24 04/29/20 09:00 60 20 123/64 91 04/29/20 08:48 61 04/29/20 08:30 60 20 96 04/29/20 08:02 60 23 118/45 L 04/29/20 08:00 63 18 04/29/20 07:30 37.2 C 60 19 93 04/29/20 07:00 60 19 118/56 L 04/29/20 06:30 60 21 04/29/20 06:02 58 L 21 88 L 04/29/20 06:00 60 20 114/52 L 93 04/29/20 05:00 61 20 119/49 L 93 04/29/20 04:00 36.6 C 62 18 107/51 L 98 04/29/20 03:00 60 18 108/63 93 PG Care Time/CCT Total # of Minutes Spent Total Time Spent with Patient: Total time spent is greater than 50% in coordination of care (as documented) at patient's floor/unit and/or counseling patient: Coding Level of Care Code 12312 Subseq Hosp Care Lvl 3 Diagnoses Atrial flutter with rapid ventricular response I48.92 Acute on chronic diastolic heart failure I50.33 Tinea corporis B35.4 Tinea cruris B35.6 Cellulitis of right lower extremity L03.115 Hypothyroidism E03.9 HTN (hypertension) I10 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
[2020-04-29] MEDS: cefTRIAXone SODIUM 2,000 MG in DEXTROSE 5% 50 ML IV SCH (17:27)
[2020-04-29] MEDS ORDERED: Nursing to Pharmacy Communication SCH ×2 (18:45)
[2020-04-29] MEDS ORDERED: INSULIN GLARGINE SOLOSTAR 100 UNITS/ML 3 ML PEN SC STA (18:48)
[2020-04-29] MEDS: METOPROLOL TARTRATE 50 MG TAB PO SCH (19:54)
[2020-04-30] MEDS: METOCLOPRAMIDE HCL 5 MG TABLET PO SCH ×5 (00:15→23:31)
[2020-04-30] MEDS ORDERED: MECLIZINE 12.5 MG TAB PO PRN (01:01)
[2020-04-30] MEDS: LEVOTHYROXINE SODIUM 50 MCG TABLET PO SCH (04:03)
--- NOTE | 2020-04-30 04:51 | Electrocardiogram Report ---
Test Reason : Blood Pressure : / mmHG Vent. Rate : 060 BPM Atrial Rate : 060 BPM P-R Int : 202 ms QRS Dur : 092 ms QT Int : 506 ms P-R-T Axes : 064 058 031 degrees QTc Int : 506 ms Normal sinus rhythm Prolonged QT Abnormal ECG When compared with ECG of 26-APR-2020 11:44, Sinus rhythm has replaced Atrial flutter Vent. rate has decreased BY 59 BPM Nonspecific T wave abnormality no longer evident in Lateral leads Confirmed by Mo Oviedo ([id number]) on 04/30/2020 4:50:41 AM Referred By: REFERRED SELF Confirmed By:Mo Oviedo
[2020-04-30] MEDS: ONDANSETRON INJ 2 MG/ML 2 ML VIAL IV PRN (08:06)
[2020-04-30] MEDS: INSULIN ASPART 100 UNITS/ML 3 ML PEN SC SCH ×4 (08:10→22:22)
[2020-04-30] MEDS: MAGNESIUM CHLORIDE 64MG DELAYED REL TAB PO SCH ×2 (08:12→22:20)
[2020-04-30] MEDS: PANTOprazole 40 MG TAB PO SCH (08:13)
[2020-04-30] MEDS: ATORVASTATIN 40 MG TAB PO SCH (08:13)
[2020-04-30] MEDS: EZETIMIBE 10 MG TABLET PO SCH (08:13)
[2020-04-30] MEDS: ASPIRIN 81 MG ECTAB PO SCH (08:13)
[2020-04-30] MEDS: MULTIVITAMIN TAB PO SCH (08:13)
[2020-04-30] MEDS: APIXABAN 5 MG TABLET PO SCH ×2 (08:14→22:19)
[2020-04-30] MEDS: NYSTATIN POWDER 15GM BTL EXT SCH ×2 (08:15→22:20)
[2020-04-30] MEDS: CYANOCOBALAMIN 500 MCG TABLET (VITAMIN B-12) PO SCH (08:15)
[2020-04-30] MEDS: METOPROLOL TARTRATE 50 MG TAB PO SCH ×2 (08:15→22:19)
[2020-04-30] MEDS: CLOTRIMAZOLE 1% CR 15 GM TUBE EXT SCH ×2 (08:15→22:19)
[2020-04-30 08:32] LABS: Basophils # (auto) 0.01 K/uL (0-0.2); Basophils % (auto) 0.1 %; Eosinophils # (auto) 0.12 K/uL (0-0.5); Eosinophils % (auto) 1.3 %; Hematocrit (blood only) 41.1 % (37-47); Immature Granulocytes # (auto) 0.07 K/uL (0.00-0.02); Immature Granulocytes % (auto) 0.8 %; Lymphocytes # (auto) 1.15 K/uL (1.2-3.4); Lymphocytes % (auto) 12.4 %; Mean Corpuscular Hemoglobin 29.6 pg (25-34); Mean Corpuscular Hgb Conc 29.2 g/dL (32-36); Mean Corpuscular Volume 101.5 fL (80-100); Mean Platelet Volume 9.9 fL (7.4-10.4); Monocytes # (auto) 0.88 K/uL (0.11-0.59); Monocytes % (auto) 9.5 %; Neutrophils # (auto) 7.04 K/uL (1.4-6.5); Neutrophils % (auto) 75.9 %; Platelet Count 225 K/uL (130-400); RDW Coefficient of Variation 16.9 % (11.5-14.5); RDW Standard Deviation 63.5 fL (36.4-46.3); Red Blood Count 4.05 M/uL (4.2-5.4); White Blood Count 9.27 K/uL (4.8-10.8)
[2020-04-30 08:58] LABS: BUN Creatinine Ratio 17.1 (10-20); Calcium 8.4 mg/dl (8.5-10.1); Est GFR (African American) 16.9; Est GFR (Non-African American) 14.6; Magnesium 3.1 mg/dl (1.8-2.4); Phosphorus 6.5 mg/dl (2.5-4.9); Potassium 5.2 mmol/L (3.5-5.1)
[2020-04-30] MEDS: FERROUS SULFATE 325 MG TAB PO SCH (10:20)
[2020-04-30] MEDS: SODIUM CHLORIDE 0.9% 1000ML 1,000 ML IV SCH (10:31)
--- NOTE | 2020-04-30 12:10 | Cardiology Progress Note ---
Date of Service April 30, 2020 Assessment & Plan (1) Acute on chronic renal failure: (2) Atrial flutter, paroxysmal: (3) Cellulitis of right lower extremity: (4) Stage III chronic kidney disease: (5) Chronic anticoagulation: IV diuretic therapy discontinued. Agree with gentle IV hydration at this time. Encourage p.o. intake and hydration. Reduce metoprolol tartrate to 50 mg twice daily to avoid hypotension. ARB discontinued. Continue Eliquis 5 mg twice daily. Repeat BMP in a.m. Antibiotic therapy as per internal medicine. Subjective Patient seen and examined the bedside. Remains in sinus rhythm on telemetry. Creatinine trending upward to 3.2 today. IV Lasix held yesterday. Patient denies palpitations, chest discomfort, or shortness of breath. Nausea has improved. Or p.o. intake noted due to nausea. No vomiting or diarrhea. Patient denies orthopnea or paroxysmal nocturnal dyspnea. Currently resting comfortably. Review of Systems Review of Systems: All systems reviewed & are unremarkable except as noted in HPI & below Physical Exam Constitutional: well developed, well nourished and + morbidly obese; no acute distress and not ill appearing Respiratory: normal respiratory effort, lungs clear to auscultation Cardiovascular: Rate/Rhythm: regular rate, regular rhythm and + bradycardic Heart Sounds: normal S1 and normal S2; no murmur Vessels: no JVD Extremities: + edema (+ Bilateral erythema with mild pretibial edema.) Gastrointestinal (Abdomen): Inspection/Auscultation: abdomen normal to inspection and normal bowel sounds; abdomen not distended P ercussion/Palpation: abdomen soft; abdomen nontender, no guarding and abdomen not rigid Musculoskeletal: no cyanosis or clubbing, extremities motor strength 5/5 Skin: + rash (Bilateral upper extremities) Neurologic: CN's II-XI intact bilaterally and moves all extremities; no focal motor deficits Speech / Cognition: normal speech Motor/Sensory: no tremor Psychiatric: A+Ox3, euthymic affect Results & Data Vital Signs (Past 12 Hours) Vital Signs Temp Pulse Pulse Resp BP Pulse Ox 04/30/20 07:56 68 04/30/20 07:47 36.5 C 64 20 92/61 L 98 04/30/20 04:00 36.4 C L 58 L 16 101/66 92 (1) Acute on chronic renal failure Acute renal failure type: unspecified Chronic kidney disease stage: stage 3 (moderate) Qualified Code(s): N17.9 - Acute kidney failure, unspecified; N18.3 - Chronic kidney disease, stage 3 (moderate)
--- NOTE | 2020-04-30 13:49 | Hospitalist Progress Note ---
Date of Service April 30, 2020 Assessment & Plan (1) Acute on chronic renal failure: Pt with soft BP and decreased UOP with increased cr. Seems likely over- diuresed intravascularly Will attempt gentle IVF for now and monitor Lasix on hold since 04/29 If no improvement, t/c renal c/s (2) Atrial flutter with rapid ventricular response: Appreciate cardiology consult. Flutter ablation 04/28 Continue metoprolol. Apixaban uninterrupted Cardiology is following, metoprolol decreased to 75mg BID, amio d/c Eliquis copay will be $0 per CM (3) Acute on chronic diastolic heart failure: Given 1L NSS bolus in ER. Weight increased from 150 to 167 kg since prior admission 1 month ago. Pulmonary edema noted on admission CXR. Daily weights, I&Os (negative 1L since admission) As per cardiology, d/c amio, lasix Metoprolol decreased as noted above (4) Tinea corporis: Initially planned for both topical clotrimazole cream on forearms in addition to PO terbinafine 250mg PO daily for 2 weeks and follow up with PCP for resolution holding PO since 04/29 due to cr (5) Tinea cruris: Use nystatin powder under skin folds Start terbinafine 250mg PO daily for 2 weeks as above, holding since 04/29 for cr (6) Cellulitis of right lower extremity: Ceftriaxone 2g IV daily, switch to PO keflex on discharge More consistent with venous stasis dermatitis changes at this point given improvement on abx. Recommend completion of 5-7 days antibiotics for this and folliculitis (7) Hypothyroidism: Continue levothyroxine 50 mcg PO daily (8) HTN (hypertension): Continue her usual outpatient medications with metoprolol and irbesartan (9) Uncontrolled type 2 diabetes mellitus with kidney complication, with long- term current use of insulin: HbA1C 8.5 [03/2020] Hypoglycemic on admission Novolog sliding scale; will loosen coverage slightly from last admission. Carb ratio 7, correction 20. Aim Patient was given dose of Lantus on 04/27 her blood sugars are in the 80s but she was n.p.o. for procedures, further lantus held Pt with BS in the 200s. Started on lantus 15 units on 04/29. Monitor (10) DVT prophylaxis: Continue chronic anticoagulation with apixaban 5mg BID Admission and Anticipated Discharge Date Admission Date: April 26, 2020 Subjective Pt was with increased nausea this AM. Improved with zofran. She feels like she would like to eat something for lunch. She tells me she has not been urinating much. No SOB or chest pain. Pt denies fever, abd pain, n/v/c/d, LE pain. LE swelling is stable. Review of Systems Review of Systems: Pertinent positives and negatives reviewed in HPI--all others negative Physical Exam Constitutional: WD/WN, vitals as above Eyes: normal visual bacon by confrontation and + anicteric sclerae Neck: normal visual inspection and trachea midline Respiratory: normal respiratory effort, lungs clear to auscultation Cardiovascular: Rate/Rhythm: regular rate and regular rhythm Extremities: + edema (1+ pitting) Gastrointestinal (Abdomen): Inspection/Auscultation: abdomen not distended Percussion/Palpation: abdomen soft; abdomen nontender Musculoskeletal: Head/Neck/Chest: normocephalic and head atraumatic Skin: no rashes, warm and dry (LE redness c/w chronic venous stasis) Neurologic: awake; not confused Speech / Cognition: normal speech Psychiatric: A+Ox3, euthymic affect Results & Data Results & Data ([facility]) Vital Signs (Past 12 Hours) Vital Signs Temp Pulse Pulse Resp BP Pulse Ox 04/30/20 12:23 36.4 C L 67 18 96/59 L 90 04/30/20 07:56 68 04/30/20 07:47 36.5 C 64 20 92/61 L 98 04/30/20 04:00 36.4 C L 58 L 16 101/66 92 PG Care Time/CCT Total # of Minutes Spent Total Time Spent with Patient: Total time spent is greater than 50% in coordination of care (as documented) at patient's floor/unit and/or counseling patient: Coding Level of Care Code 88029 Subseq Hosp Care Lvl 3 Diagnoses Acute on chronic renal failure N17.9; N18.3 Acute renal failure type: unspecified Chronic kidney disease stage: stage 3 (moderate) Atrial flutter with rapid ventricular response I48.92 Acute on chronic diastolic heart failure I50.33 Tinea corporis B35.4 Tinea cruris B35.6 Cellulitis of right lower extremity L03.115 Hypothyroidism E03.9 HTN (hypertension) I10 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 (1) Acute on chronic renal failure Acute renal failure type: unspecified Chronic kidney disease stage: stage 3 (moderate) Qualified Code(s): N17.9 - Acute kidney failure, unspecified; N18.3 - Chronic kidney disease, stage 3 (moderate)
[2020-04-30] MEDS ORDERED: INSULIN GLARGINE SOLOSTAR 100 UNITS/ML 3 ML PEN SC SCH (15:00)
[2020-04-30] MEDS: cefTRIAXone SODIUM 2,000 MG in DEXTROSE 5% 50 ML IV SCH (16:41)
[2020-05-01 01:39] LABS: Calcium 8.6 mg/dl (8.5-10.1); Creatinine Clr Calc Pharmacy 30.7 ml/min; Est GFR (African American) 19.8; Est GFR (Non-African American) 17.1; Potassium 4.8 mmol/L (3.5-5.1)
[2020-05-01] MEDS: METOCLOPRAMIDE HCL 5 MG TABLET PO SCH ×4 (06:12→23:28)
[2020-05-01] MEDS: LEVOTHYROXINE SODIUM 50 MCG TABLET PO SCH (06:12)
--- NOTE | 2020-05-01 07:11 | Electrocardiogram Report ---
Test Reason : Blood Pressure : / mmHG Vent. Rate : 058 BPM Atrial Rate : 058 BPM P-R Int : 206 ms QRS Dur : 094 ms QT Int : 498 ms P-R-T Axes : 057 061 039 degrees QTc Int : 488 ms Sinus bradycardia Low voltage QRS T wave abnormality, consider anterior ischemia Abnormal ECG When compared with ECG of 29-APR-2020 08:53, T wave inversion now evident in Anterior leads Confirmed by Mo Oviedo ([id number]) on 05/01/2020 7:11:00 AM Referred By: REFERRED SELF Confirmed By:Mo Oviedo
[2020-05-01] MEDS: SODIUM CHLORIDE 0.9% 1000ML 1,000 ML IV SCH ×2 (07:13→23:08)
[2020-05-01] MEDS: INSULIN ASPART 100 UNITS/ML 3 ML PEN SC SCH ×4 (07:34→22:51)
[2020-05-01] MEDS: ASPIRIN 81 MG ECTAB PO SCH (08:44)
[2020-05-01] MEDS: FERROUS SULFATE 325 MG TAB PO SCH (08:44)
[2020-05-01] MEDS: EZETIMIBE 10 MG TABLET PO SCH (08:45)
[2020-05-01] MEDS: ATORVASTATIN 40 MG TAB PO SCH (08:45)
[2020-05-01] MEDS: APIXABAN 5 MG TABLET PO SCH ×2 (08:45→22:12)
[2020-05-01] MEDS: MULTIVITAMIN TAB PO SCH (08:45)
[2020-05-01] MEDS: CYANOCOBALAMIN 500 MCG TABLET (VITAMIN B-12) PO SCH (08:46)
[2020-05-01] MEDS: PANTOprazole 40 MG TAB PO SCH (08:46)
[2020-05-01] MEDS: METOPROLOL TARTRATE 50 MG TAB PO SCH ×2 (08:46→22:12)
[2020-05-01] MEDS: MAGNESIUM CHLORIDE 64MG DELAYED REL TAB PO SCH ×2 (08:46→22:13)
[2020-05-01] MEDS: CLOTRIMAZOLE 1% CR 15 GM TUBE EXT SCH ×2 (08:47→22:13)
[2020-05-01] MEDS: NYSTATIN POWDER 15GM BTL EXT SCH ×2 (08:47→22:13)
[2020-05-01] MEDS ORDERED: AMIODARONE 200 MG TAB PO ONE (10:07)
--- NOTE | 2020-05-01 10:32 | Cardiology Progress Note ---
Date of Service May 01, 2020 Assessment & Plan (1) Acute on chronic renal failure: (2) Atrial flutter, paroxysmal: (3) Cellulitis of right lower extremity: (4) Stage III chronic kidney disease: (5) Chronic anticoagulation: Patient with intermittent A. fib flutter overnight. Will resume amiodarone with low oral load today Continue metoprolol Continue chronic anticoagulation Renal function improving after hydration and no acute volume overload currently Subjective Patient seen and examined, chart, medications, telemetry reviewed. Intermittent atrial fibrillation/flutter earlier today. At time of examination in sinus rhythm. Renal function improved this morning Patient sitting out of bed in chair without acute complaint Physical Exam Constitutional: + morbidly obese; no acute distress Eyes: PERRL, conjunctivae normal, anicteric sclerae ENMT: external ear and nose normal, oropharynx normal Neck: trachea midline, no thyromegaly Respiratory: Auscultation: + diminished lung sounds Cardiovascular: Rate/Rhythm: regular rate and regular rhythm Vessels: no JVD Extremities: + edema (2+ peripheral) Gastrointestinal (Abdomen): normal bowel sounds, soft, nontender, no hepatosplenomegaly Results & Data Vital Signs (Past 12 Hours) Vital Signs Temp Pulse Resp BP BP Pulse Ox 05/01/20 08:20 36.9 C 114 H 18 119/80 91 05/01/20 02:16 36.7 C 71 22 117/70 96 04/30/20 23:14 36.4 C L 79 22 134/71 91 Laboratory Results Laboratory Results - last 24 hr 04/30/20 04/30/20 04/30/20 11:19 16:31 16:33 Sodium Potassium Chloride Carbon Dioxide Anion Gap BUN Creatinine Est Cr Clr Drug Dosing Est GFR ( Amer) Est GFR (Non-Af Amer) BUN/Creatinine Ratio Glucose POC Glucose 169 H 300 H 209 H Calcium 04/30/20 04/30/20 05/01/20 16:35 20:23 01:10 Sodium 137 Potassium 4.8 Chloride 97 L Carbon Dioxide 35 H Anion Gap 5.0 BUN 62 H Creatinine 2.81 H D Est Cr Clr Drug Dosing 30.7 Est GFR ( Amer) 19.8 Est GFR (Non-Af Amer) 17.1 BUN/Creatinine Ratio 22.0 H Glucose 179 H POC Glucose 204 H 192 H Calcium 8.6 05/01/20 07:29 Sodium Potassium Chloride Carbon Dioxide Anion Gap BUN Creatinine Est Cr Clr Drug Dosing Est GFR ( Amer) Est GFR (Non-Af Amer) BUN/Creatinine Ratio Glucose POC Glucose 170 H Calcium (1) Acute on chronic renal failure Acute renal failure type: unspecified Chronic kidney disease stage: stage 3 (moderate) Qualified Code(s): N17.9 - Acute kidney failure, unspecified; N18.3 - Chronic kidney disease, stage 3 (moderate)
[2020-05-01] MEDS: ONDANSETRON INJ 2 MG/ML 2 ML VIAL IV PRN (10:42)
[2020-05-01] MEDS: AMIODARONE 200 MG TAB PO SCH ×2 (12:20→16:37)
--- NOTE | 2020-05-01 13:38 | Hospitalist Progress Note ---
Date of Service May 01, 2020 Assessment & Plan (1) Acute on chronic renal failure: Pt with soft BP and decreased UOP with increased cr yesterday. Much improved today s/p gentle IVF. Seems likely that she was over-diuresed intravascularly due to the level of CHF on presentation Continue gentle IVF for now and monitor Lasix on hold since 04/29 If no improvement, t/c renal c/s (2) Atrial flutter with rapid ventricular response: Appreciate cardiology consult. Flutter ablation 04/28 Continue metoprolol. Apixaban uninterrupted Cardiology is following, metoprolol decreased to 75mg BID Restart amio today Eliquis copay will be $0 per CM (3) Acute on chronic diastolic heart failure: Given 1L NSS bolus in ER. Weight increased from 150 to 167 kg since prior admission 1 month ago. Pulmonary edema noted on admission CXR. Daily weights, I&Os (negative 1L since admission) As per cardiology, continue d/c lasix Metoprolol decreased as noted above (4) Tinea corporis: Initially planned for both topical clotrimazole cream on forearms in addition to PO terbinafine 250mg PO daily for 2 weeks and follow up with PCP for resolution holding PO since 04/29 due to cr (5) Tinea cruris: Use nystatin powder under skin folds Start terbinafine 250mg PO daily for 2 weeks as above, holding since 04/29 for cr (6) Cellulitis of right lower extremity: Ceftriaxone 2g IV daily, switch to PO keflex on discharge More consistent with venous stasis dermatitis changes at this point given improvement on abx. Recommend completion of 5-7 days antibiotics for this and folliculitis (7) Hypothyroidism: Continue levothyroxine 50 mcg PO daily (8) HTN (hypertension): Continue her usual outpatient medications with metoprolol and irbesartan (9) Uncontrolled type 2 diabetes mellitus with kidney complication, with long- term current use of insulin: HbA1C 8.5 [03/2020] Hypoglycemic on admission Novolog sliding scale; will loosen coverage slightly from last admission. Carb ratio 7, correction 20. Aim Patient was given dose of Lantus on 04/27 her blood sugars are in the 80s but she was n.p.o. for procedures, further lantus held Pt with BS in the 200s. Started on lantus 15 units on 04/29. Improving BS (10) DVT prophylaxis: Continue chronic anticoagulation with apixaban 5mg BID Admission and Anticipated Discharge Date Admission Date: April 26, 2020 Subjective Pt states that she was able to eat more lunch yesterday after the zofran dosing. She did not eat much breakfast today. When I entered the room, pt was struggling to sit up and states she felt out of breath with this. Prior, she was not SOB. Pt denies fever, chest pain, abd pain, v/c/d, LE pain. Her LE swelling is better. She feels nauseated at present and would like to try the zofran again. Nursing reported that pt had gone into afib at one point, but then came out of it without intervention. Review of Systems Review of Systems: Pertinent positives and negatives reviewed in HPI--all others negative Physical Exam Constitutional: WD/WN, vitals as above Eyes: normal visual bacon by confrontation and + anicteric sclerae Neck: normal visual inspection and trachea midline Respiratory: normal respiratory effort, lungs clear to auscultation Cardiovascular: Rate/Rhythm: regular rate and regular rhythm Extremities: + edema (improving) Gastrointestinal (Abdomen): Inspection/Auscultation: abdomen not distended Percussion/Palpation: abdomen soft; abdomen nontender Musculoskeletal: Head/Neck/Chest: normocephalic and head atraumatic Skin: no rashes, warm and dry (LE redness c/w chronic venous stasis) Neurologic: awake; not confused Speech / Cognition: normal speech Psychiatric: A+Ox3, euthymic affect Results & Data Results & Data ([facility]) Vital Signs (Past 12 Hours) Vital Signs Temp Pulse Resp BP BP Pulse Ox 05/01/20 11:30 36.6 C 65 18 113/70 100 05/01/20 08:20 36.9 C 114 H 18 119/80 91 05/01/20 02:16 36.7 C 71 22 117/70 96 PG Care Time/CCT Total # of Minutes Spent Total Time Spent with Patient: Total time spent is greater than 50% in coordination of care (as documented) at patient's floor/unit and/or counseling patient: Coding Level of Care Code 30571 Subseq Hosp Care Lvl 3 Diagnoses Acute on chronic renal failure N17.9; N18.3 Acute renal failure type: unspecified Chronic kidney disease stage: stage 3 (moderate) Atrial flutter with rapid ventricular response I48.92 Acute on chronic diastolic heart failure I50.33 Tinea corporis B35.4 Tinea cruris B35.6 Cellulitis of right lower extremity L03.115 Hypothyroidism E03.9 HTN (hypertension) I10 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 (1) Acute on chronic renal failure Acute renal failure type: unspecified Chronic kidney disease stage: stage 3 (moderate) Qualified Code(s): N17.9 - Acute kidney failure, unspecified; N18.3 - Chronic kidney disease, stage 3 (moderate)
[2020-05-01] MEDS: cefTRIAXone SODIUM 2,000 MG in DEXTROSE 5% 50 ML IV SCH (16:44)
[2020-05-02] MEDS: LEVOTHYROXINE SODIUM 50 MCG TABLET PO SCH (05:11)
[2020-05-02] MEDS: METOCLOPRAMIDE HCL 5 MG TABLET PO SCH ×3 (05:11→17:09)
[2020-05-02 07:13] LABS: Calcium 8.8 mg/dl (8.5-10.1); Creatinine Clr Calc Pharmacy 39.9 ml/min; Est GFR (African American) 27.2; Est GFR (Non-African American) 23.4; Magnesium 3.3 mg/dl (1.8-2.4); Potassium 5.5 mmol/L (3.5-5.1)
[2020-05-02 07:27] LABS: Phosphorus 3.8 mg/dl (2.5-4.9)
[2020-05-02] MEDS: NYSTATIN POWDER 15GM BTL EXT SCH ×2 (07:45→20:47)
[2020-05-02] MEDS: FERROUS SULFATE 325 MG TAB PO SCH (07:45)
[2020-05-02] MEDS: CLOTRIMAZOLE 1% CR 15 GM TUBE EXT SCH ×2 (07:45→20:47)
[2020-05-02] MEDS: EZETIMIBE 10 MG TABLET PO SCH (07:46)
[2020-05-02] MEDS: MAGNESIUM CHLORIDE 64MG DELAYED REL TAB PO SCH ×2 (07:46→20:46)
[2020-05-02] MEDS: MULTIVITAMIN TAB PO SCH (07:46)
[2020-05-02] MEDS: METOPROLOL TARTRATE 50 MG TAB PO SCH ×2 (07:46→20:46)
[2020-05-02] MEDS: AMIODARONE 200 MG TAB PO SCH ×3 (07:47→17:09)
[2020-05-02] MEDS: CALCITRIOL 0.25 MCG CAPSULE PO SCH (07:47)
[2020-05-02] MEDS: PANTOprazole 40 MG TAB PO SCH (07:47)
[2020-05-02] MEDS: CYANOCOBALAMIN 500 MCG TABLET (VITAMIN B-12) PO SCH (07:47)
[2020-05-02] MEDS: ATORVASTATIN 40 MG TAB PO SCH (07:47)
[2020-05-02] MEDS: INSULIN ASPART 100 UNITS/ML 3 ML PEN SC SCH ×4 (07:48→21:25)
[2020-05-02] MEDS: APIXABAN 5 MG TABLET PO SCH ×2 (07:48→20:46)
[2020-05-02] MEDS: ASPIRIN 81 MG ECTAB PO SCH (09:52)
[2020-05-02] MEDS: ONDANSETRON INJ 2 MG/ML 2 ML VIAL IV PRN ×2 (11:50→17:15)
--- NOTE | 2020-05-02 13:00 | Cardiology Progress Note ---
Date of Service May 02, 2020 Assessment & Plan (1) Acute on chronic renal failure: (2) Atrial flutter, paroxysmal: (3) Cellulitis of right lower extremity: (4) Stage III chronic kidney disease: (5) Chronic anticoagulation: No further atrial flutter. Renal function improving. We will continue amiodarone at 200 mg 3 times daily with likely reduction in a.m. We will continue also metoprolol 50 mg twice daily no bradycardia arrhythmias noted. We will continue to follow volume status closely Suspect hypoventilation is driving at least part of patient's underlying issues. Subjective Patient was seen and examined, chart, medications, telemetry reviewed No further atrial arrhythmias overnight. Still weak and fatigued appetite poor Physical Exam Constitutional: + morbidly obese; no acute distress Eyes: PERRL, conjunctivae normal, anicteric sclerae ENMT: external ear and nose normal, oropharynx normal Neck: trachea midline, no thyromegaly Respiratory: Auscultation: + diminished lung sounds Cardiovascular: Rate/Rhythm: regular rate and regular rhythm Vessels: no JVD Extremities: + edema (2+ peripheral) Gastrointestinal (Abdomen): normal bowel sounds, soft, nontender, no hepatosplenomegaly Skin: + rash (Eruptive, chronic) Results & Data Vital Signs (Past 12 Hours) Vital Signs Temp Pulse Pulse Resp BP Pulse Ox 05/02/20 11:30 36.4 C L 65 20 122/76 92 05/02/20 07:27 36.8 C 71 18 114/99 93 05/02/20 07:11 66 Laboratory Results Laboratory Results - last 24 hr 05/01/20 05/01/20 05/02/20 16:37 20:32 06:11 Sodium 136 Potassium 5.5 H Chloride 99 Carbon Dioxide 36 H Anion Gap 1.0 L BUN 69 H Creatinine 2.16 H D Est Cr Clr Drug Dosing 39.9 Est GFR ( Amer) 27.2 Est GFR (Non-Af Amer) 23.4 BUN/Creatinine Ratio 32.0 H Glucose 173 H POC Glucose 160 H 200 H Calcium 8.8 Phosphorus 3.8 D Magnesium 3.3 H 05/02/20 05/02/20 07:24 11:28 Sodium Potassium Chloride Carbon Dioxide Anion Gap BUN Creatinine Est Cr Clr Drug Dosing Est GFR ( Amer) Est GFR (Non-Af Amer) BUN/Creatinine Ratio Glucose POC Glucose 187 H 211 H Calcium Phosphorus Magnesium (1) Acute on chronic renal failure Acute renal failure type: unspecified Chronic kidney disease stage: stage 3 (moderate) Qualified Code(s): N17.9 - Acute kidney failure, unspecified; N18.3 - Chronic kidney disease, stage 3 (moderate)
--- NOTE | 2020-05-02 15:23 | Hospitalist Progress Note ---
Date of Service May 02, 2020 Assessment & Plan (1) Acute on chronic renal failure: Pt with soft BP and decreased UOP with increased cr yesterday. Ongoing improvement with gentle IVF. Seems likely that she was over-diuresed intravascularly due to the level of CHF on presentation Continue gentle IVF for now and monitor Lasix on hold since 04/29 (2) Atrial flutter with rapid ventricular response: Appreciate cardiology consult. Flutter ablation 04/28 Continue metoprolol. Apixaban uninterrupted Cardiology is following, metoprolol decreased to 75mg BID Pt has been having intermittent rate/rhythm issues, cardiology still adjusting amio dosing Eliquis copay will be $0 per CM (3) Acute on chronic diastolic heart failure: Given 1L NSS bolus in ER. Weight increased from 150 to 167 kg since prior admission 1 month ago. Pulmonary edema noted on admission CXR. Daily weights, I&Os (negative 1L since admission) As per cardiology, continue d/c lasix Metoprolol decreased as noted above (4) Tinea corporis: Initially planned for both topical clotrimazole cream on forearms in addition to PO terbinafine 250mg PO daily for 2 weeks and follow up with PCP for resolution holding PO since 04/29 due to cr (5) Tinea cruris: Use nystatin powder under skin folds Start terbinafine 250mg PO daily for 2 weeks as above, holding since 04/29 for cr (6) Cellulitis of right lower extremity: Ceftriaxone 2g IV daily, switch to PO keflex on discharge More consistent with venous stasis dermatitis changes at this point given improvement on abx. Recommend completion of 5-7 days antibiotics for this and folliculitis (7) Hypothyroidism: Continue levothyroxine 50 mcg PO daily (8) HTN (hypertension): Continue her usual outpatient medications with metoprolol and irbesartan (9) Uncontrolled type 2 diabetes mellitus with kidney complication, with long- term current use of insulin: HbA1C 8.5 [03/2020] Hypoglycemic on admission Novolog sliding scale; will loosen coverage slightly from last admission. Carb ratio 7, correction 20. Aim Patient was given dose of Lantus on 04/27 her blood sugars are in the 80s but she was n.p.o. for procedures, further lantus held Pt with BS in the 200s. Started on lantus 15 units on 04/29. Improving BS (10) DVT prophylaxis: Continue chronic anticoagulation with apixaban 5mg BID Admission and Anticipated Discharge Date Admission Date: April 26, 2020 Subjective Pt is still with nausea. Ate more for breakfast than she has been. Is having some increased work of breathing when she sits back into a chair, resolves when she sits up. Pt denies fever, chest pain, abd pain, v/c/d, LE pain or swelling. She feels that she is having increased shaking today. Review of Systems Review of Systems: Pertinent positives and negatives reviewed in HPI--all others negative Physical Exam Constitutional: WD/WN, vitals as above Eyes: normal visual bacon by confrontation and + anicteric sclerae Neck: normal visual inspection and trachea midline Respiratory: normal respiratory effort, lungs clear to auscultation Cardiovascular: Rate/Rhythm: regular rate and regular rhythm Extremities: + edema (improving) Gastrointestinal (Abdomen): Inspection/Auscultation: abdomen not distended Percussion/Palpation: abdomen soft; abdomen nontender Musculoskeletal: Head/Neck/Chest: normocephalic and head atraumatic Skin: no rashes, warm and dry (LE redness c/w chronic venous stasis) Neurologic: awake; not confused Speech / Cognition: normal speech Psychiatric: A+Ox3, euthymic affect Results & Data Results & Data ([facility]) Vital Signs (Past 12 Hours) Vital Signs Temp Pulse Pulse Resp BP Pulse Ox 05/02/20 14:56 69 05/02/20 11:30 36.4 C L 65 20 122/76 92 05/02/20 07:27 36.8 C 71 18 114/99 93 05/02/20 07:11 66 PG Care Time/CCT Total # of Minutes Spent Total Time Spent with Patient: Total time spent is greater than 50% in coordination of care (as documented) at patient's floor/unit and/or counseling patient: Coding Level of Care Code 61459 Subseq Hosp Care Lvl 3 Diagnoses Acute on chronic renal failure N17.9; N18.3 Acute renal failure type: unspecified Chronic kidney disease stage: stage 3 (moderate) Atrial flutter with rapid ventricular response I48.92 Acute on chronic diastolic heart failure I50.33 Tinea corporis B35.4 Tinea cruris B35.6 Cellulitis of right lower extremity L03.115 Hypothyroidism E03.9 HTN (hypertension) I10 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 (1) Acute on chronic renal failure Acute renal failure type: unspecified Chronic kidney disease stage: stage 3 (moderate) Qualified Code(s): N17.9 - Acute kidney failure, unspecified; N18.3 - Chronic kidney disease, stage 3 (moderate)
[2020-05-02] MEDS: cefTRIAXone SODIUM 2,000 MG in DEXTROSE 5% 50 ML IV SCH (17:11)
[2020-05-03] MEDS: METOCLOPRAMIDE HCL 5 MG TABLET PO SCH ×4 (00:32→17:32)
[2020-05-03] MEDS: LEVOTHYROXINE SODIUM 50 MCG TABLET PO SCH (05:49)
[2020-05-03 07:10] LABS: Calcium 9.3 mg/dl (8.5-10.1); Creatinine Clr Calc Pharmacy 57.1 ml/min; Est GFR (African American) 41.9; Est GFR (Non-African American) 36.1; Potassium 5.6 mmol/L (3.5-5.1)
[2020-05-03] MEDS: INSULIN ASPART 100 UNITS/ML 3 ML PEN SC SCH ×4 (07:53→21:02)
[2020-05-03] MEDS: MAGNESIUM CHLORIDE 64MG DELAYED REL TAB PO SCH ×2 (07:54→20:58)
[2020-05-03] MEDS: ASPIRIN 81 MG ECTAB PO SCH (07:54)
[2020-05-03] MEDS: FERROUS SULFATE 325 MG TAB PO SCH (07:54)
[2020-05-03] MEDS: AMIODARONE 200 MG TAB PO SCH ×3 (07:54→17:32)
[2020-05-03] MEDS: APIXABAN 5 MG TABLET PO SCH ×2 (07:54→20:43)
[2020-05-03] MEDS: EZETIMIBE 10 MG TABLET PO SCH (07:55)
[2020-05-03] MEDS: PANTOprazole 40 MG TAB PO SCH (07:55)
[2020-05-03] MEDS: CYANOCOBALAMIN 500 MCG TABLET (VITAMIN B-12) PO SCH (07:55)
[2020-05-03] MEDS: METOPROLOL TARTRATE 50 MG TAB PO SCH ×3 (07:55→20:43)
[2020-05-03] MEDS: ATORVASTATIN 40 MG TAB PO SCH (07:55)
[2020-05-03] MEDS: MULTIVITAMIN TAB PO SCH (07:55)
[2020-05-03] MEDS: NYSTATIN POWDER 15GM BTL EXT SCH ×2 (07:56→20:42)
[2020-05-03] MEDS: CLOTRIMAZOLE 1% CR 15 GM TUBE EXT SCH ×2 (07:56→20:43)
--- NOTE | 2020-05-03 08:52 | XRay Report ---
XR chest 1V portable CLINICAL HISTORY: SOB,CHF dyspnea COMPARISON STUDY: 04/26/2020 FINDINGS: Moderate stable cardiomegaly. Persistent prominence of pulmonary vasculature. Diaphragms ar e smooth. IMPRESSION: Congestive heart failure. No significant change from the prior exam. ACT 112: Negative or not required by law. The above report was generated using voice recognition software. It may contain grammatical, syntax or spelling errors. Electronically signed by: Espinoza Batista M.D. 05/03/2020 8:50 AM
--- NOTE | 2020-05-03 09:52 | Operative Report (OR) ---
DATE OF OPERATION: 04/28/2020 PREOPERATIVE DIAGNOSIS: Recurrent paroxysmal atrial flutter. POSTOPERATIVE DIAGNOSES: Recurrent paroxysmal atrial flutter plus sinus bradycardia. SURGEON: Elena Galarza DO. FINANCIAL OPERATIONS ANALYST: None. PROCEDURE: Electrophysiology study, atrial flutter ablation, 3D activation mapping of the atrial flutter as well as the His bundle region anatomical mapping and the right atria anatomical mapping along with left atrial pacing, ultrasound guidance for venous access. ANESTHESIA: General anesthesia as the patient had to be intubated because she quickly had respiratory arrest with conscious sedation, so they gave 2 mg of Versed, the rest was all of gas. IV FLUIDS: 300 mL were given by Anesthesia plus from my irrigation ablation catheter, I am not sure how much that was. The start time of the procedure was 11:55, the end time was 13:48. ANTIBIOTICS: None. BLOOD LOSS: 5 mL. URINE OUTPUT: Not applicable. SPECIMENS: None. FINDINGS: See below. DRAINS: None. INDICATIONS: This is a 64-year-old female with past medical history for recurrent paroxysmal atrial flutter where she most recently about a month ago was hospitalized with acute heart failure with the flutter and ultimately ended up on amiodarone and cardioversion; however, she returned back to the hospital with recurrent atrial flutter and heart failure as well as some lower extremity cellulitis. Her other past medical history is chronic kidney disease stage IV nearing possibly stage V, morbid obesity, obstructive sleep apnea noncompliant with CPAP, hypertension, hyperlipidemia and slight cardiomyopathy. Due to the recurrent atrial flutter and right uncontrolled ventricular rate going into heart failure, she was recommended a flutter ablation. CONSENT: Consent was obtained prior to the patient going into Electrophysiology Lab. The patient was informed of risks, benefits and alternative procedure. Risks include but not limited to sudden cardiac ; cardiac arrhythmias; cerebrovascular accident; myocardial infarction; injury to the blood vessels, chamber of the heart or the [place] electrical system where she needed a permanent pacemaker; bleeding and infection. The patient understood these risks and agreed to the procedure as planned. Informed consent was obtained. DESCRIPTION OF THE PROCEDURE: The patient was brought into the Electrophysiology Lab in a fasting state. She was connected to continuous cardiac monitoring. A timeout was performed to ensure the patient identity and procedure correctly. The patient was prepped and draped over bilateral groins in normal surgical standard fashion. Monitored general anesthesia was given throughout the procedure via Anesthesiology. [place] precautions were maintained throughout the procedure. A 10 mL of 1% lidocaine were given in the bilateral groins. Then using the ultrasound guidance, venous access was obtained in the following manner. The left femoral vein had a 7-Colombian sheath followed by a Decapolar coronary sinus catheter FJ curve in the coronary sinus. A 7-Colombian sheath followed by a 20-pole Halo catheter positioned around the right atrium. A right femoral vein had initially a 6-Colombian sheath that was ultimately swapped out for an SRO followed then by the irrigated 4 mm ablation DF curved catheter. With the ablation catheter, I did 3D activation mapping of the atrial flutter proving that it was isthmus dependent counterclockwise. The following are the findings of the tachycardia. The tachycardia cycle length was 285 milliseconds with variable ventricular response. When I paced Halo distal to entrain the tachycardia, I got post pacing interval of 296 with minus tachycardia cycle length of 285 which was 11 milliseconds indicating that it is a right-sided flutter. When I had the ablation catheter on the cavotricuspid isthmus I additionally entrained the flutter with a PPI-TCL of 15 seconds proving it was a isthmus depend flutter I gave a series of radiofrequency ochoa about 30 seconds to 1 minute in duration along her isthmus, from isthmus it was not that longer and from the tricuspid valve down to the IVC junction. When we did break the flutter during the ablation, I then started pacing from the CS prox and I found that the CS proximal to distal Halo distance was 99 milliseconds. I continued to give ochoa until I had bidirectional block. Pacing Halo distal measuring to CS prox was 140 milliseconds. Pacing the ablation catheter lateral to the line and pacing off the bottom measuring to CS prox was 108 milliseconds and pacing CS prox measuring it to the ablation catheter lateral to the line was 180 milliseconds as well. Then during our post ablation waiting period, I did an electrophysiology study with the following findings. The MO interval was 200 milliseconds, the QRS was 84 milliseconds, the QT was 498 milliseconds. I had the ablation catheter over the His bundle and the AH was 95 and the HV was 67 milliseconds. Then I placed the ablation catheter down into the right ventricular apex. The AV Wenckebach was 460 milliseconds, the AV node ERP was 600/350 and 500/410, the atrial ERP was 600/250 400/230. The right ventricular ERP was 600/340 and 400/300. After successful 30-minute waiting period, I confirmed that I still had pacing CS prox measuring to the ablation that was lateral to the line was 168 milliseconds, then pacing the ablation catheter that was lateral to the line measuring to CS prox was 161 milliseconds proving that I still had successful bidirectional block across the cavotricuspid isthmus. All the catheters removed from the body and then the sheaths were pulled and manual compression was used to establish hemostasis. Since the patient was going to have to lie supine for 2 more hours, we did opt to keep her intubated throughout the postoperative period, so she went to the ICU. IMPRESSION: 1. Isthmus dependent atrial flutter counterclockwise, status post successful ablation. 2. Sinus bradycardia. 3. Bidirectional block across the cavotricuspid isthmus. 4. Normal atrioventricular mariela pathology. PLAN: Transfer the patient to the ICU as we are going to keep her intubated until she is safe enough to sit up after groin pull. As she is on Eliquis and will need to sit up immediately after extubation. She is to continue her Eliquis uninterrupted for the next month and follow up in 1 month's time. I attest to the content of the Intraoperative Record and any orders documented therein. Any exceptions are noted below. JOHN
--- NOTE | 2020-05-03 10:33 | Cardiology Progress Note ---
Date of Service May 03, 2020 Assessment & Plan (1) Acute on chronic renal failure: (2) Atrial flutter, paroxysmal: (3) Cellulitis of right lower extremity: (4) Stage III chronic kidney disease: (5) Chronic anticoagulation: No further atrial flutter but now is in atrial fibrillation renal function improving. Volume status appears moderate overload, congestive heart failure on exam and chest x-ray We will continue amiodarone at 200 mg 3 times daily with likely reduction in a.m. we will increase metoprolol to 50 mg 3 times daily We will continue to follow volume status closely single dose IV furosemide 40 mg given now has renal function appears to return towards baseline Suspect hypoventilation is driving at least part of patient's underlying issues. Will check ABG on current oxygen supplementation Subjective Patient seen, examined, chart medications telemetry reviewed. Patient appears more lethargic this morning. Did lapse back into atrial fibrillation last evening 1732 rates intermittently elevated No chest pains or cough. Physical Exam Constitutional: + morbidly obese; no acute distress Eyes: PERRL, conjunctivae normal, anicteric sclerae ENMT: external ear and nose normal, oropharynx normal Neck: trachea midline, no thyromegaly Respiratory: Auscultation: + diminished lung sounds Cardiovascular: Rate/Rhythm: + tachycardic and + irregularly irregular Heart Sounds: normal S1 and normal S2 Vessels: no JVD Extremities: + edema (2+ peripheral) Gastrointestinal (Abdomen): normal bowel sounds, soft, nontender, no hepatosplenomegaly Skin: + rash (Eruptive, chronic) Results & Data Vital Signs (Past 12 Hours) Vital Signs Temp Pulse Pulse Resp BP Pulse Ox 05/03/20 09:16 36.8 C 104 H 18 134/74 91 05/03/20 08:00 139 H 05/03/20 05:28 36.7 C 116 H 22 107/73 94 05/02/20 23:29 36.7 C 116 H 22 132/66 98 Laboratory Results Laboratory Results - last 24 hr 05/02/20 05/02/20 05/02/20 11:28 16:18 20:31 Sodium Potassium Chloride Carbon Dioxide Anion Gap BUN Creatinine Est Cr Clr Drug Dosing Est GFR ( Amer) Est GFR (Non-Af Amer) BUN/Creatinine Ratio Glucose POC Glucose 211 H 297 H 276 H Calcium 05/03/20 05/03/20 06:24 07:25 Sodium 140 Potassium 5.6 H Chloride 103 Carbon Dioxide 36 H Anion Gap 2.0 L BUN 57 H Creatinine 1.51 H D Est Cr Clr Drug Dosing 57.1 Est GFR ( Amer) 41.9 Est GFR (Non-Af Amer) 36.1 BUN/Creatinine Ratio 38.0 H Glucose 189 H POC Glucose 275 H Calcium 9.3 (1) Acute on chronic renal failure Acute renal failure type: unspecified Chronic kidney disease stage: stage 3 (moderate) Qualified Code(s): N17.9 - Acute kidney failure, unspecified; N18.3 - Chronic kidney disease, stage 3 (moderate)
[2020-05-03] MEDS ORDERED: FUROSEMIDE 40 MG in SYRINGE 0 ML IV ONE (11:15)
[2020-05-03 11:31] LABS: Allen Test Pos (Pos); Base Excess ABG 8.8 mEq/L (-9-1.8); HCO3 ABG 39 mmol/L (19-24); Oxygen Saturation ABG 93.9 % (90-95); PCO2 ABG 90 mmHg (35-46); PO2 ABG 77 mmHg (80-95); pH ABG 7.25 (7.35-7.45)
--- NOTE | 2020-05-03 13:04 | Cardiology Progress Note ---
Date of Service May 03, 2020 Subjective Reviewed results of laboratory testing with ABG ordered today demonstrating significant hypercarbia, hypoventilation. Would recommend pulmonology/ICU consultation for trial of BiPAP therapy Discussed with Dr. Navarrete Results & Data Vital Signs (Past 12 Hours) Vital Signs Temp Pulse Pulse Resp BP Pulse Ox 05/03/20 12:11 36.5 C 111 H 18 128/84 95 05/03/20 09:16 36.8 C 104 H 18 134/74 91 05/03/20 08:00 139 H 05/03/20 05:28 36.7 C 116 H 22 107/73 94
--- NOTE | 2020-05-03 13:17 | Pre Anesthesia Assessment ---
Date of Service May 03, 2020 Pre Sedation Assessment Vital Signs Temp Pulse Pulse Resp BP Pulse Ox 05/03/20 12:11 36.5 C 111 H 18 128/84 95 05/03/20 09:16 36.8 C 104 H 18 134/74 91 05/03/20 08:00 139 H 05/03/20 05:28 36.7 C 116 H 22 107/73 94 05/02/20 23:29 36.7 C 116 H 22 132/66 98 05/02/20 19:29 36.6 C 73 18 140/74 98 05/02/20 17:34 93 05/02/20 15:20 36.5 C 70 18 118/60 90 05/02/20 14:56 69 Cardiovascular + irregularly irregular + S1 normal and + S2 normal Respiratory normal respiratory effort, lungs clear to auscultation Pre-Sedation Airway Assessment Smoking Status: Former smoker Hx Sleep Apnea: No Short, Thick Neck: Yes Thyromental Distance: > or= 3.5 Finger Breadths Oral Cavity: + Dentures Mallampati Class: III ASA: ASA2 NPO Status Date of Last Intake of Fluids: 04/27/20 Time of Last Intake of Fluids: 21:00 Date of Last Intake of Solid Food: 04/27/20 Time of Last Intake of Solid Foods: 21:00 Procedure Planning Contraindications for Sedation: none Current Medications Reviewed: Yes Notes The planned sedation has been discussed with the patient. Informed Consent was obtained. I have identified the patient, determined the appropriateness of sedation and have assessed the patient immediately prior to the procedure. All medicine(s) and interventions are by my order.
--- NOTE | 2020-05-03 13:29 | Hospitalist Progress Note ---
Date of Service May 03, 2020 Assessment & Plan (1) Acute hypercapnic respiratory failure: With development of lethargy and hypercapnia on ABG on 05/03 with a PaCO2 of 90 and pH 7.25 with a PaO2 of 77 on 5 L O2 With acute hypercapnic and hypoxic respiratory failure, requiring 5 L O2 -Transfer to ICU -Start BiPAP continuously -Appreciate critical care/contact center manager consultation -Follow VBG (2) Acute on chronic renal failure: Had rising creatinine after initial IV diuresis for CHF on admission, creatinine peaked at 3.2 and is now down to 1.51 after receiving gentle IV fluids Now with worsening volume overload and worsening hypoxia-give Lasix 40 mg IV x1 -Follow BMP in the morning -Avoid nephrotoxins -Continue to hold home irbesartan -Renally dose medications as needed (3) Atrial flutter with rapid ventricular response: Appreciate cardiology consult. Flutter ablation 04/28 and no further atrial flutter since then, but with atrial fibrillation as below Continue metoprolol. Apixaban uninterrupted -Continue amiodarone Cardiology is following [employer] copay will be $0 per CM (4) Paroxysmal atrial fibrillation: Developed rapid atrial fibrillation on the evening of 05/02 with rates in the 120s to 140s -Continue amiodarone Continue metoprolol but increase to 50 mg p.o. 3 times daily -Cardiology following -Continue monitor on telemetry -Follow electrolytes and replace as needed (5) Acute on chronic diastolic heart failure: Given 1L NSS bolus in ER. Weight increased from 150 to 167 kg since prior admission 1 month ago. Pulmonary edema noted on admission CXR. Was initially diuresed with IV Lasix and then had acute kidney injury as above Weight is down slightly from yesterday at 154 kg, chest x-ray continues with pulmonary edema and still requiring 5 L O2 -Giving IV Lasix today and will dose day by day based on renal function and volume status -Continue to follow Daily weights, I&Os (negative 1L since admission) (6) Tinea corporis: Initially planned for both topical clotrimazole cream on forearms in addition to PO terbinafine 250mg PO daily for 2 weeks and follow up with PCP for resolution -Holding off on terbinafine for now (7) Tinea cruris: Use nystatin powder under skin folds (8) Cellulitis of right lower extremity: Was treated with ceftriaxone 2g IV daily x8 days Unsure if this is improved from previous is still appears quite erythematous and warm to the touch-we will now monitor off antibiotics (9) Hypothyroidism: TSH normal at 3.56 on 04/26 -Continue levothyroxine 50 mcg PO daily (10) HTN (hypertension): Blood pressures are controlled -Continue metoprolol -Holding home irbesartan for PETE (11) Uncontrolled type 2 diabetes mellitus with kidney complication, with long- term current use of insulin: HbA1C 8.5 [03/2020] Hypoglycemic on admission, now hyperglycemic -Start Lantus 8 units SQ at bedtime and tighten NovoLog range down to 100-140 with correction factor XX and carb ratio 1-7 (12) Hyperkalemia: Potassium 5.6 and stable from previous Lasix IV was given today which should help as well as adding on increased insulin levels -Follow BMP (13) Obesity: BMI 56.4 Needs encouragement for weight loss (14) DVT prophylaxis: Continue chronic anticoagulation with apixaban 5mg BID Disposition-transfer to ICU in case of need for intubation given hypercapnic respiratory failure Will need PT/OT evaluations and rehab placement Admission and Anticipated Discharge Date Admission Date: April 26, 2020 Subjective Patient was seen twice today. The first time was around lunchtime and she was quite lethargic and would barely open her eyes to answer my questions. She seemed confused. She reported maybe she felt a little short of breath. Denied chest pains. She is in rapid atrial fibrillation today through the night with rates in the 120s to 150s. I discussed the case with Dr. Schreiber of cardiology and Dr. Navarrete of pulmonary/critical care Review of Systems Review of Systems: All systems reviewed & are unremarkable except as noted in HPI & below Physical Exam Constitutional: WD/WN, vitals as above + morbidly obese Eyes: + anicteric sclerae Neck: trachea midline, no thyromegaly Respiratory: normal respiratory effort; no labored breathing Auscultation: + diminished lung sounds (Throughout); no crackles, no rhonchi and no wheezes Cardiovascular: Rate/Rhythm: + tachycardic and + irregularly irregular Heart Sounds: no murmur Extremities: + edema (2+ edema to the knees bilaterally of the lower extremities) Gastrointestinal (Abdomen): normal bowel sounds, soft, nontender, no hepatosplenomegaly Musculoskeletal: Extremities: no cyanosis and no clubbing Skin: + erythema (Right greater than left legs diffuse erythema and warmth) Neurologic: no focal motor deficits Psychiatric: Orientation: oriented to person and cooperative; + not alert (Drowsy/lethargic) Eye Contact: + poor eye contact Lymphatic: no lymphedema Results & Data Results & Data ([facility]) Vital Signs (Past 12 Hours) Vital Signs Temp Pulse Pulse Resp BP Pulse Ox 05/03/20 12:11 36.5 C 111 H 18 128/84 95 05/03/20 09:16 36.8 C 104 H 18 134/74 91 05/03/20 08:00 139 H 05/03/20 05:28 36.7 C 116 H 22 107/73 94 Laboratory Results 05/03/20 05/03/20 05/03/20 Range/Units 16:45 15:29 13:40 ABG pH (7.35-7.45) ABG pCO2 (35-46) mmHg ABG pO2 (80-95) mmHg ABG HCO3 (19-24) mmol/L ABG O2 Saturation (90-95) % ABG Base Excess (-9-1.8) mEq/L Heron Test (Pos) VBG pH 7.29 L (7.36-7.41) VBG pCO2 88 H (38-50) mmHg VBG pO2 27 mmHg VBG HCO3 42 mmol/L VBG O2 Saturation < 60.0 % VBG Base Excess 11.7 mEq/L Barometric Pressure 729.3 mm/Hg Oxygen Given Sodium (136-145) mmol/L Potassium (3.5-5.1) mmol/L Chloride (98-107) mmol/L Carbon Dioxide (21-32) mmol/L Anion Gap (3-11) BUN (7-18) mg/dl Creatinine (0.6-1.2) mg/dl Est Cr Clr Drug Dosing ml/min Est GFR ( Amer) Est GFR (Non-Af Amer) BUN/Creatinine Ratio (10-20) Glucose (70-99) mg/dl POC Glucose 147 H (70-99) mg/dl Calcium (8.5-10.1) mg/dl Nasal Screen MRSA (PCR) Negative (Negative) 05/03/20 05/03/20 05/03/20 Range/Units 11:34 11:17 07:25 ABG pH 7.25 L (7.35-7.45) ABG pCO2 90 H (35-46) mmHg ABG pO2 77 L (80-95) mmHg ABG HCO3 39 H (19-24) mmol/L ABG O2 Saturation 93.9 (90-95) % ABG Base Excess 8.8 H (-9-1.8) mEq/L Heron Test Pos (Pos) VBG pH (7.36-7.41) VBG pCO2 (38-50) mmHg VBG pO2 mmHg VBG HCO3 mmol/L VBG O2 Saturation % VBG Base Excess mEq/L Barometric Pressure 729.5 mm/Hg Oxygen Given 5 L Sodium (136-145) mmol/L Potassium (3.5-5.1) mmol/L Chloride (98-107) mmol/L Carbon Dioxide (21-32) mmol/L Anion Gap (3-11) BUN (7-18) mg/dl Creatinine (0.6-1.2) mg/dl Est Cr Clr Drug Dosing ml/min Est GFR ( Amer) Est GFR (Non-Af Amer) BUN/Creatinine Ratio (10-20) Glucose (70-99) mg/dl POC Glucose 226 H 275 H (70-99) mg/dl Calcium (8.5-10.1) mg/dl Nasal Screen MRSA (PCR) (Negative) 05/03/20 05/02/20 Range/Units 06:24 20:31 ABG pH (7.35-7.45) ABG pCO2 (35-46) mmHg ABG pO2 (80-95) mmHg ABG HCO3 (19-24) mmol/L ABG O2 Saturation (90-95) % ABG Base Excess (-9-1.8) mEq/L Heron Test (Pos) VBG pH (7.36-7.41) VBG pCO2 (38-50) mmHg VBG pO2 mmHg VBG HCO3 mmol/L VBG O2 Saturation % VBG Base Excess mEq/L Barometric Pressure mm/Hg Oxygen Given Sodium 140 (136-145) mmol/L Potassium 5.6 H (3.5-5.1) mmol/L Chloride 103 (98-107) mmol/L Carbon Dioxide 36 H (21-32) mmol/L Anion Gap 2.0 L (3-11) BUN 57 H (7-18) mg/dl Creatinine 1.51 H D (0.6-1.2) mg/dl Est Cr Clr Drug Dosing 57.1 ml/min Est GFR ( Amer) 41.9 Est GFR (Non-Af Amer) 36.1 BUN/Creatinine Ratio 38.0 H (10-20) Glucose 189 H (70-99) mg/dl POC Glucose 276 H (70-99) mg/dl Calcium 9.3 (8.5-10.1) mg/dl Nasal Screen MRSA (PCR) (Negative) Diagnostic Findings Chest x-ray image personally reviewed by me and agree with the following report: XR chest 1V portable CLINICAL HISTORY: SOB,CHF dyspnea COMPARISON STUDY: 04/26/2020 FINDINGS: Moderate stable cardiomegaly. Persistent prominence of pulmonary vasculature. Diaphragms are smooth. IMPRESSION: Congestive heart failure. No significant change from the prior exam. PG Care Time/CCT Total # of Minutes Spent Total Time Spent with Patient: Total time spent is greater than 50% in coordination of care (as documented) at patient's floor/unit and/or counseling patient: Coding Level of Care Code 93230 Subseq Hosp Care Lvl 3 Diagnoses Acute hypercapnic respiratory failure J96.02 Acute on chronic renal failure N17.9; N18.3 Acute renal failure type: unspecified Chronic kidney disease stage: stage 3 (moderate) Atrial flutter with rapid ventricular response I48.92 Paroxysmal atrial fibrillation I48.0 Acute on chronic diastolic heart failure I50.33 Tinea corporis B35.4 Tinea cruris B35.6 Cellulitis of right lower extremity L03.115 Hypothyroidism E03.9 HTN (hypertension) I10 Uncontrolled type 2 diabetes mellitus with kidney complication, with long-term current use of insulin E11.29; E11.65; Z79.4 Hyperkalemia E87.5 Obesity E66.9 DVT prophylaxis Z29.9 (1) Acute on chronic renal failure Acute renal failure type: unspecified Chronic kidney disease stage: stage 3 (moderate) Qualified Code(s): N17.9 - Acute kidney failure, unspecified; N18.3 - Chronic kidney disease, stage 3 (moderate)
--- NOTE | 2020-05-03 13:42 | Critical Care Consultation ---
Date of Consultation May 03, 2020 Assessment & Plan (1) Acute hypercapnic respiratory failure: Impression: 64-year-old morbidly obese female with acute on chronic hypercarbic respiratory failure and associated hypoxemic respiratory failure. This likely is secondary to morbid obesity Recommendations: 1. Acute on chronic hypercarbic respiratory failure: Patient will be transferred to the ICU for initiation of noninvasive positive pressure ventilation. Will start BiPAP 15/8 and see how she does. She should be on some form of positive airway pressure nightly until an outpatient sleep study can be accomplished. Unclear if CPAP may be adequate alone. Hopefully we can avoid intubation in this patient. She is currently communicative and able to identify that she is in the hospital and deny any other respiratory complaints. Avoid any other respiratory depressing medications. 2. Morbid obesity: Weight loss is mandatory. Consider outpatient referral to weight loss management. 3. Diabetes: Poorly controlled. Will adjust with ICU hyperglycemic protocol for now. 4. Acute kidney injury: Serum creatinine resolving. She is being treated with diuretics. Will need to continue to follow with continue diuresis. She may benefit from Diamox as well. 5. Diastolic heart failure: Aggressive blood pressure control recommended. Continue diuresis as the patient appears volume up. Management per cardiology 6. A. fib/flutter: Management per cardiology. She is currently maintained on amiodarone. Continue telemetry. She is anticoagulated on Eliquis. 7. We will keep n.p.o. for now except for medications pending improvement in her respiratory status. Patient condition guarded. We will see how she responds to BiPAP. Hopefully she will do well. (2) Acute on chronic renal failure: (3) Atrial flutter: (4) Acute on chronic diastolic (congestive) heart failure: History of Present Illness Attending Physician: Lucie Manriquez MD History of Present Illness Asked by hospitalist to assist in management this patient with acute on chronic hypoxemic and hypercarbic respiratory failure. History is obtained from review electronic medical record as the patient is somewhat obtunded due to her current respiratory acidosis. Briefly, the patient is a 64-year-old morbidly obese female who does not carry a diagnosis of sleep disordered breathing or use CPAP at home who was admitted to the hospital from cardiology clinic due to atrial fibrillation with rapid ventricular response. She also carries a history of diastolic heart failure and poorly controlled diabetes. She was taken to the [facility] 04/28/2020 for an ablation which reportedly was successful but the patient did require intubation due to respiratory arrest with conscious sedation. She was extubated and transferred back to the floor. She has been followed by cardiology and the hospitalist service. Her hospital course has been complicated by some renal insufficiency. She had been receiving diuretics. She was on amiodarone. This morning she was noted to be more hypoxemic and was placed on oxygen mask. An arterial blood gas was obtained which showed acute on chronic hypercarbic respiratory failure and ICU was contacted. The patient is currently in the process of being transferred to the intensive care unit for initiation of noninvasive positive pressure ventilation. Review of her serum bicarb is revealed that they have consistently been above 30 suggestive of obesity hypoventilation syndrome. Allergies Allergy/AdvReac Type Severity Reaction Status Date / Time amoxicillin Allergy Severe SOB, RASH Verified 04/26/20 12:23 Penicillins Allergy Severe SOB, RASH Verified 04/26/20 12:23 clarithromycin Allergy Intermediate "feels Verified 04/26/20 12:23 like flying high" clindamycin Allergy Intermediate "feels Verified 04/26/20 12:23 like flying high" fluconazole Allergy Intermediate "feels Verified 04/26/20 12:23 like flying high" sulfamethoxazole Allergy Intermediate "feels Verified 04/26/20 12:23 like flying high" trimethoprim Allergy Intermediate "feels Verified 04/26/20 12:23 like flying high" Bactrim Allergy Unknown UNKNOWN Verified 02/21/18 10:32 codeine AdvReac Mild ITCHING, Verified 04/26/20 12:23 NAUSEA Home Medications Home Medications Medication Instructions Recorded Confirmed Type aspirin [Aspirin Low Dose] 81 mg PO QAM #0 12/28/11 04/26/20 History meclizine 12.5 mg PO TID PRN 10 Days #30 tab 09/26/16 04/26/20 History amiodarone 200 mg tablet 200 mg PO QAM tab 06/05/19 04/26/20 History irbesartan 300 mg tablet 300 mg PO QAM #30 tab 11/05/19 04/26/20 Rx albuterol sulfate 90 mcg/actuation 2 puff INHALATION Q6H PRN #18 gm 11/19/19 04/26/20 Rx aerosol inhaler atorvastatin 40 mg tablet 40 mg PO QAM #30 tab 11/27/19 04/26/20 Rx levothyroxine 50 mcg tablet 50 mcg PO DAILY #30 tab 11/27/19 04/26/20 Rx OneTouch Ultra Blue Test Strip #500 ea NS 12/01/19 03/24/20 Rx torsemide 20 mg tablet 40 mg PO BID #120 tab 12/01/19 04/26/20 Rx insulin syringe-needle U-100 1 mL #200 ea 12/04/19 03/24/20 Rx 31 gauge x 5/16" ezetimibe 10 mg tablet 10 mg PO QAM #90 tab 02/17/20 04/26/20 Rx ferrous sulfate 325 mg (65 mg 325 mg PO DAILY #90 tab 02/17/20 04/26/20 Rx iron) tablet apixaban 5 mg tablet 5 mg PO Q12H #60 tab 02/20/20 04/26/20 Rx metoprolol tartrate 100 mg tablet 100 mg PO BID #60 tab 03/16/20 04/26/20 Rx pantoprazole 40 mg tablet,delayed 40 mg PO DAILY #30 tab 03/23/20 04/26/20 Rx release calcitriol 0.25 mcg capsule 0.25 mcg PO UD #45 cap 03/24/20 04/26/20 Rx cyanocobalamin (vitamin B-12) 1,000 mcg PO DAILY 03/24/20 04/26/20 History 1,000 mcg tablet,extended release insulin aspart U-100 [Novolog 0 unit SUBCUT UD 03/31/20 04/26/20 History U-100 Insulin aspart] multivitamin with folic acid 1 tab PO DAILY 03/31/20 04/26/20 History magnesium chloride 64 mg 64 mg PO BID #90 tab 04/02/20 04/26/20 Rx (magnesium chloride) tablet,delayed release Lantus U-100 Insulin 0 units SQ DAILY 04/26/20 04/26/20 History Patient History Medical History Atrial fibrillation (Acute) follows with Dr. Rapp---on eliquis Atrial flutter hx of Chronic anticoagulation (Chronic) Chronic obstructive pulmonary disease inhaler prn Chronic pain of left knee (Chronic) DJD Degenerative disc disease Diabetes mellitus, type 2 Diabetic foot ulcer associated with type 2 diabetes mellitus Diastolic CHF Hyperlipidemia Hypertension Hypothyroidism Lumbar radicular pain (Chronic) Myofascial pain (Chronic) Nausea and vomiting after administration of anesthetic agent Obesity On anticoagulant therapy eliquis daily Osteoarthritis Spinal stenosis Spinal stenosis of lumbar region (Chronic) TIA (transient ischemic attack) (Resolved 07/14/14) Surgical History History of cardioversion x2 History of carpal tunnel surgery of left wrist History of colonoscopy with polypectomy History of lumpectomy of right breast benign History of tooth extraction most teeth removed--full upper denture/partial lower History of total hysterectomy with bilateral salpingo-oophorectomy (BSO) Family History Sister Family history of reaction to anesthesia nausea/vomiting Hypothyroidism Father Family history of reaction to anesthesia nausea/vomiting Family hx colonic polyps Hypertension Mother Diabetes Hypertension Denies family history of Breast cancer Colorectal cancer Social History Preferred Language: [place] Communication Ability: Effective 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 Beliefs That Will Affect Care: None Current Living Situation: Family current occupational status: retired Other Information That Helps Us Care for You: No Feels Safe at Home: Yes Safety Concerns: Feels Safe At This Time Smoking Status: Former smoker Tobacco Type: e-cigarettes ; Do You Dip or Chew Tobacco: No ; Second Hand Exposure: Yes ; Tobacco Cessation Education Requested by Patient: No Hx Alcohol Use: Yes Alcohol type: beer and wine Hx Substance Use: No Review of Systems Review of Systems: Unobtainable due to reduced consciousness Physical Exam Constitutional: + morbidly obese; no acute distress Eyes: PERRL, conjunctivae normal, anicteric sclerae ENMT: external ear and nose normal, oropharynx normal Neck: trachea midline, no thyromegaly Respiratory: Auscultation: + diminished lung sounds Cardiovascular: Rate/Rhythm: + tachycardic and + irregularly irregular Heart Sounds: normal S1 and normal S2 Vessels: no JVD Extremities: + edema (2+ peripheral) Gastrointestinal (Abdomen): normal bowel sounds, soft, nontender, no hepa tosplenomegaly Skin: + rash (Eruptive, chronic) Results & Data Results & Data ([facility]) Vital Signs (Past 12 Hours) Vital Signs Temp Pulse Pulse Resp BP Pulse Ox 05/03/20 12:11 36.5 C 111 H 18 128/84 95 05/03/20 09:16 36.8 C 104 H 18 134/74 91 05/03/20 08:00 139 H 05/03/20 05:28 36.7 C 116 H 22 107/73 94 Laboratory Results 04/30/20 08:09 05/03/20 06:24 05/03/20 11:17 ABG pH 7.25 L ABG pCO2 90 H ABG pO2 77 L ABG HCO3 39 H ABG O2 Saturation 93.9 ABG Base Excess 8.8 H Diagnostic Findings Chest x-ray from today was independently reviewed. The film is underpenetrated due to body habitus. There is hazy opacities in the bilateral lower lobes. Cardiomegaly again noted. Echocardiogram from 04/27/2020 showed an ejection fraction of 55 to 60%. Atrial fibrillation prohibited assessment of diastolic filling parameters. Right v entricle was mildly dilated. Left atrium was dilated and IVC was dilated with estimated pressure of 8 mmHg. Coding Level of Care Code Critical Care 1st 30-74 mins Diagnoses Acute hypercapnic respiratory failure J96.02 Acute on chronic renal failure N17.9; N18.3 Acute renal failure type: unspecified Chronic kidney disease stage: stage 3 (moderate) Atrial flutter I48.92 Acute on chronic diastolic (congestive) heart failure I50.33 Time Spent (min) 48 (1) Acute on chronic renal failure Acute renal failure type: unspecified Chronic kidney disease stage: stage 3 (moderate) Qualified Code(s): N17.9 - Acute kidney failure, unspecified; N18.3 - Chronic kidney disease, stage 3 (moderate)
[2020-05-03 16:53] LABS: Base Excess VBG 11.7 mEq/L; HCO3 VBG 42 mmol/L; PCO2 VBG 88 mmHg (38-50); PO2 VBG 27 mmHg; pH VBG 7.29 (7.36-7.41)
[2020-05-03 17:13] LABS: Oxygen Saturation VBG < 60.0 %
[2020-05-03] MEDS ORDERED: INSULIN GLARGINE SOLOSTAR 100 UNITS/ML 3 ML PEN SC SCH (21:00)
[2020-05-04 04:52] LABS: Basophils # (auto) 0.02 K/uL (0-0.2); Basophils % (auto) 0.3 %; Eosinophils # (auto) 0.36 K/uL (0-0.5); Eosinophils % (auto) 6.2 %; Hematocrit (blood only) 40.6 % (37-47); Hemoglobin 12.2 g/dL (12.0-16.0); Immature Granulocytes # (auto) 0.02 K/uL (0.00-0.02); Immature Granulocytes % (auto) 0.3 %; Lymphocytes # (auto) 1.25 K/uL (1.2-3.4); Lymphocytes % (auto) 21.5 %; Mean Corpuscular Hemoglobin 30.3 pg (25-34); Mean Corpuscular Volume 100.7 fL (80-100); Mean Platelet Volume 10.5 fL (7.4-10.4); Monocytes # (auto) 0.78 K/uL (0.11-0.59); Monocytes % (auto) 13.4 %; Neutrophils # (auto) 3.38 K/uL (1.4-6.5); Neutrophils % (auto) 58.3 %; Platelet Count 203 K/uL (130-400); RDW Coefficient of Variation 16.3 % (11.5-14.5); RDW Standard Deviation 59.7 fL (36.4-46.3); Red Blood Count 4.03 M/uL (4.2-5.4); White Blood Count 5.81 K/uL (4.8-10.8)
[2020-05-04 05:09] LABS: BUN Creatinine Ratio 34.6 (10-20); Calcium 8.7 mg/dl (8.5-10.1); Est GFR (African American) 49.3; Est GFR (Non-African American) 42.5; Magnesium 2.7 mg/dl (1.8-2.4); Potassium 5.5 mmol/L (3.5-5.1)
[2020-05-04 05:18] LABS: Phosphorus 1.5 mg/dl (2.5-4.9)
[2020-05-04] MEDS: LEVOTHYROXINE SODIUM 50 MCG TABLET PO SCH (05:36)
[2020-05-04] MEDS ORDERED: SODIUM PHOSPHATE 3 MMOL/1 ML INFUSION IV STA (07:22)
[2020-05-04] MEDS: MAGNESIUM CHLORIDE 64MG DELAYED REL TAB PO SCH ×2 (07:42→20:30)
[2020-05-04] MEDS: CALCITRIOL 0.25 MCG CAPSULE PO SCH (07:42)
[2020-05-04] MEDS: MULTIVITAMIN TAB PO SCH (07:42)
[2020-05-04] MEDS: PANTOprazole 40 MG TAB PO SCH (07:43)
[2020-05-04] MEDS: CYANOCOBALAMIN 500 MCG TABLET (VITAMIN B-12) PO SCH (07:43)
[2020-05-04] MEDS: METOPROLOL TARTRATE 50 MG TAB PO SCH ×4 (07:43→20:29)
[2020-05-04] MEDS: EZETIMIBE 10 MG TABLET PO SCH (07:43)
[2020-05-04] MEDS: FERROUS SULFATE 325 MG TAB PO SCH (07:44)
[2020-05-04] MEDS: ATORVASTATIN 40 MG TAB PO SCH (07:44)
[2020-05-04] MEDS: APIXABAN 5 MG TABLET PO SCH ×2 (07:44→20:30)
[2020-05-04] MEDS: AMIODARONE 200 MG TAB PO SCH ×3 (07:45→17:22)
[2020-05-04] MEDS: ASPIRIN 81 MG ECTAB PO SCH (07:46)
[2020-05-04] MEDS: INSULIN ASPART 100 UNITS/ML 3 ML PEN SC SCH ×4 (07:48→20:46)
[2020-05-04] MEDS: NYSTATIN POWDER 15GM BTL EXT SCH ×2 (07:51→20:30)
[2020-05-04] MEDS: CLOTRIMAZOLE 1% CR 15 GM TUBE EXT SCH ×2 (07:51→20:31)
[2020-05-04] MEDS ORDERED: SODIUM PHOSPHATE 15 MMOL in SODIUM CHLORIDE 0.9% 250 ML IV ONE (08:00)
[2020-05-04] MEDS ORDERED: SODIUM CHLORIDE 0.65% NA SOLN 45 ML (OCEAN) ONE (08:20)
[2020-05-04] MEDS ORDERED: NURSING DECISION MEDICATION ONE (08:23)
[2020-05-04] MEDS ORDERED: SODIUM CHLORIDE 0.65% NA SOLN 45 ML (OCEAN) PRN (08:38)
[2020-05-04] MEDS ORDERED: POT PHOSPHATE MONOBASIC W/ SOD TAB PO SCH (09:00)
--- NOTE | 2020-05-04 09:26 | Critical Care Progress Note ---
Date of Service May 04, 2020 Assessment & Plan (1) Acute hypercapnic respiratory failure: Impression: 64-year-old morbidly obese female with acute on chronic hypercarbic respiratory failure and associated hypoxemic respiratory failure. This likely is secondary to morbid obesity. She is clinically and metabolically improved on BiPAP. Recommendations: 1. Acute on chronic hypercarbic respiratory failure: This is likely the acute recognition of a chronic problem. The patient likely has obesity hypoventilation syndrome and requires nocturnal positive airway pressure. She is tolerated it well. Would recommend nightly use of BiPAP 15/8 centimeters of water. She should also use BiPAP whenever she is sleeping. She will require an outpatient sleep study. Would recommend that case management work on setting up home BiPAP for the patient to go home with settings of 15/8 with indication being chronic hypercarbic respiratory failure/obesity hypoventilation syndrome. 2. Morbid obesity: Weight loss is mandatory. Consider outpatient referral to weight loss management. 3. Diabetes: Continue current hyperglycemic protocol. 4. Acute kidney injury: Serum creatinine resolving. Negative almost a liter last 24. Continue diuretics that she is mildly fluid overloaded. 5. Diastolic heart failure: Aggressive blood pressure control recommended. Continue diuresis as the patient appears volume up. Management per cardiology 6. A. fib/flutter: Management per cardiology. She is currently maintained on amiodarone. Continue telemetry. She is anticoagulated on Eliquis. 7. Okay to advance diet. Patient appears stable currently. She can transfer back to the telemetry floor from my perspective. We will continue to follow her for pulmonary issues. (2) Acute on chronic renal failure: (3) Atrial flutter: (4) Acute on chronic diastolic (congestive) heart failure: Admission and Anticipated Discharge Date Admission Date: April 26, 2020 Subjective Seen and examined. Discussed with critical care nurse at bedside as well as on multidisciplinary rounds. Discussed with critical care HAJA overnight. The patient is currently sitting in a chair using her BiPAP. She is awake alert. She is conversant. Her mental status is much better than yesterday. She does not particularly enjoy a noninvasive positive pressure ventilation but is willing to use it going forward especially if it is only at night. Physical Exam Constitutional: + morbidly obese; no acute distress Eyes: PERRL, conjunctivae normal, anicteric sclerae ENMT: external ear and nose normal, oropharynx normal Neck: trachea midline, no thyromegaly Respiratory: Auscultation: + diminished lung sounds Cardiovascular: Rate/Rhythm: + tachycardic and + irregularly irregular Heart Sounds: normal S1 and normal S2 Vessels: no JVD Extremities: + edema (2+ peripheral) Gastrointestinal (Abdomen): normal bowel sounds, soft, nontender, no hepatosplenomegaly Skin: + rash (Eruptive, chronic) Results & Data Results & Data ([facility]) Vital Signs (Past 12 Hours) Vital Signs Temp Pulse Resp BP Pulse Ox 05/04/20 09:17 85 L 05/04/20 09:00 130 H 22 113/69 90 05/04/20 08:35 92 05/04/20 08:30 84 L 05/04/20 08:00 127 H 18 122/74 95 05/04/20 07:00 118 H 20 112/79 100 05/04/20 06:00 115 H 24 120/94 90 05/04/20 05:00 108 H 25 H 128/74 93 05/04/20 04:00 36.6 C 118 H 24 96/73 L 93 05/04/20 03:00 118 H 22 112/75 93 05/04/20 02:05 113 H 19 96 05/04/20 02:00 126 H 24 127/79 90 05/04/20 01:30 111 H 23 90 05/04/20 01:01 123 H 17 91 05/04/20 01:00 119 H 19 98/73 L 90 05/04/20 00:30 117 H 25 H 96 05/04/20 00:00 36.5 C 106 H 23 105/70 97 05/03/20 23:00 107 H 21 107/68 95 05/03/20 22:40 119 H 23 97 05/03/20 22:10 112 H 24 109/70 97 Laboratory Results 05/04/20 04:22 05/04/20 04:22 05/03/20 05/03/20 11:17 16:45 ABG pH 7.25 L ABG pCO2 90 H ABG pO2 77 L ABG HCO3 39 H ABG O2 Saturation 93.9 ABG Base Excess 8.8 H VBG pH 7.29 L VBG pCO2 88 H VBG pO2 27 VBG HCO3 42 VBG O2 Saturation < 60.0 VBG Base Excess 11.7 Diagnostic Findings No new imaging Coding Level of Care Code 91096 Subseq Hosp Care Lvl 3 Diagnoses Acute hypercapnic respiratory failure J96.02 Acute on chronic renal failure N17.9; N18.3 Acute renal failure type: unspecified Chronic kidney disease stage: stage 3 (moderate) Atrial flutter I48.92 Acute on chronic diastolic (congestive) heart failure I50.33 (1) Acute on chronic renal failure Acute renal failure type: unspecified Chronic kidney disease stage: stage 3 (moderate) Qualified Code(s): N17.9 - Acute kidney failure, unspecified; N18.3 - Chronic kidney disease, stage 3 (moderate)
[2020-05-04] MEDS: FUROSEMIDE 40 MG in SYRINGE 0 ML IV SCH (09:48)
--- NOTE | 2020-05-04 12:17 | Cardiology Progress Note ---
Date of Service May 04, 2020 Assessment & Plan (1) Acute hypercapnic respiratory failure: (2) Acute on chronic renal failure: (3) Atrial flutter, paroxysmal: (4) Cellulitis of right lower extremity: (5) Stage III chronic kidney disease: (6) Chronic anticoagulation: (7) Persistent atrial fibrillation with rapid ventricular response: Patient clinically improved from day, prior appreciate pulmonology assistance. Hypoventilation driving multiple underlying issues in this patient and treatment will hopefully aid in patient's arrhythmia control She remains in atrial fibrillation with elevated ventricular response rate. Did respond to diuretics yesterday is received an additional IV furosemide this morning. Renal function improved Plan: Continue oral amiodarone and increase metoprolol to 50 mg 4 times daily (on 100 mg twice daily at home) Would ultimately like to attempt return to sinus rhythm given prior intolerance of atrial fibrillation/flutter but would need significant improvement in pulmonary status prior to trials and sedation Subjective Patient seen and examined, chart, medications, telemetry reviewed. Patient brighter this morning. Did wear BiPAP intermittently throughout the night. Remains tachycardic in atrial fibrillation. Responded to single dose of IV furosemide with diuresis. Denies chest pains dizziness or lightheadedness. Physical Exam Constitutional: + morbidly obese; no acute distress Eyes: PERRL, conjunctivae normal, anicteric sclerae ENMT: Mallampati Class: III Neck: trachea midline, no thyromegaly Respiratory: normal respiratory effort, lungs clear to auscultation Auscultation: + diminished lung sounds Cardiovascular: Rate/Rhythm: + tachycardic and + irregularly irregular Heart Sounds: normal S1 and normal S2 Vessels: no JVD Extremities: + edema (2+ peripheral) Gastrointestinal (Abdomen): normal bowel sounds, soft, nontender, no hepatosplenomegaly Skin: + rash (Eruptive, chronic) Results & Data Vital Signs (Past 12 Hours) Vital Signs Temp Pulse Resp BP Pulse Ox 05/04/20 10:15 117 H 20 99 05/04/20 09:32 93 05/04/20 09:17 36.3 C L 85 L 05/04/20 09:00 130 H 22 113/69 90 05/04/20 08:35 92 05/04/20 08:30 84 L 05/04/20 08:00 127 H 18 122/74 95 05/04/20 07:00 118 H 20 112/79 100 05/04/20 06:00 115 H 24 120/94 90 05/04/20 05:00 108 H 25 H 128/74 93 05/04/20 04:00 36.6 C 118 H 24 96/73 L 93 05/04/20 03:00 118 H 22 112/75 93 05/04/20 02:05 113 H 19 96 05/04/20 02:00 126 H 24 127/79 90 05/04/20 01:30 111 H 23 90 05/04/20 01:01 123 H 17 91 05/04/20 01:00 119 H 19 98/73 L 90 05/04/20 00:30 117 H 25 H 96 (1) Acute on chronic renal failure Acute renal failure type: unspecified Chronic kidney disease stage: stage 3 (moderate) Qualified Code(s): N17.9 - Acute kidney failure, unspecified; N18.3 - Chronic kidney disease, stage 3 (moderate)
[2020-05-04] MEDS ORDERED: TORSEMIDE 10 MG TAB PO SCH (12:30)
--- NOTE | 2020-05-04 16:09 | Hospitalist Progress Note ---
Date of Service May 04, 2020 Assessment & Plan (1) Acute hypercapnic respiratory failure: With development of lethargy and hypercapnia on ABG on 05/03 with a PaCO2 of 90 and pH 7.25 with a PaO2 of 77 on 5 L O2 With acute hypercapnic and hypoxic respiratory failure, requiring 5 L O2 Transferred to the ICU-now much improved after wearing BiPAP through the afternoon and overnight. Mental status is normal -Appreciate critical care/hand flesher consultation -Continue BiPAP at night 05/06 and will ask case loader operator to set this up for home use although she will likely be going to rehab -She is now weaned down to 1.5 L nasal cannula from 5 L oxygen mask yesterday after IV diuretics administered yesterday and today (2) Acute on chronic renal failure: Had rising creatinine after initial IV diuresis for CHF on admission, creatinine peaked at 3.2 and then trended back downward after IV diuretics were held IV Lasix was given yesterday and creatinine continues to improve down to 1.32 -Follow BMP in the morning -Avoid nephrotoxins -Continue to hold home irbesartan -Renally dose medications as needed (3) Atrial flutter with rapid ventricular response: Appreciate cardiology consult. Flutter ablation 04/28 and no further atrial flutter since then, but with atrial fibrillation as below Continue metoprolol. Apixaban uninterrupted -Continue amiodarone Cardiology is following [facility] copay will be $0 per CM (4) Paroxysmal atrial fibrillation: Developed rapid atrial fibrillation on the evening of 05/02 with rates in the 120s to 140s-rates continue to be uncontrolled but slightly improved with increasing doses of metoprolol -Continue amiodarone Continue metoprolol but increase again to 50 mg p.o. 4 times daily -Cardiology following -Continue monitor on telemetry -Follow electrolytes and replace as needed (5) Acute on chronic diastolic heart failure: Weight increased from 150 to 167 kg since prior admission 1 month ago. Pulmonary edema noted on admission CXR. Was initially diuresed with IV Lasix and then had acute kidney injury as above She then developed respiratory failure worsening as above with chest x-ray again with pulmonary edema on 05/03-this is now improved with IV diuretics Weight is now down significantly from yesterday after resumption of IV Lasix -Continue Lasix 40 mg IV once daily and will dose day by day based on renal function and volume status -Continue to follow Daily weights, I&Os -Continue fluid restriction and low-sodium diet (6) Tinea corporis: Initially planned for both topical clotrimazole cream on forearms in addition to PO terbinafine 250mg PO daily for 2 weeks and follow up with PCP for resolution -Holding off on terbinafine for now (7) Tinea cruris: Use nystatin powder under skin folds (8) Cellulitis of right lower extremity: Was treated with ceftriaxone 2g IV daily x8 days and now much improved Monitor off antibiotics (9) Hypothyroidism: TSH normal at 3.56 on 04/26 -Continue levothyroxine 50 mcg PO daily (10) HTN (hypertension): Blood pressures are controlled -Continue metoprolol -Holding home irbesartan for PETE (11) Uncontrolled type 2 diabetes mellitus with kidney complication, with long- term current use of insulin: HbA1C 8.5 [03/2020] Hypoglycemic on admission, then became hyperglycemic Slightly improved since starting Lantus -Increase Lantus to 10 units SQ at bedtime and tighten NovoLog again (12) Hyperkalemia: Potassium slightly decreased today to 5.5 -Continue Lasix IV which should help as well as adding on increased insulin levels -Follow BMP (13) Obesity: BMI 54.9 Gave encouragement for weight loss (14) Hypophosphatemia: Replaced with sodium phosphate IV -Follow level in the morning (15) DVT prophylaxis: Continue chronic anticoagulation with apixaban 5mg BID Disposition-stable for downgrade from ICU back to PCU [facility] when medically stable-hopefully in the next 1 to 2 days if A. fib is better controlled Admission and Anticipated Discharge Date Admission Date: April 26, 2020 Subjective Patient states she did not enjoy wearing the BiPAP last night but did tolerate it. She is tearful thinking about having to try to wear this for the rest of her life but is willing to try. Denies chest pains or shortness of breath today. She is much more awake and alert and interactive. We discussed the importance of weight loss as well. Telemetry with rapid atrial fibrillation with rates in the 120s I discussed the case with Dr. Schreiber of cardiology Review of Systems Review of Systems: All systems reviewed & are unremarkable except as noted in HPI & below Physical Exam Constitutional: WD/WN, vitals as above + morbidly obese Eyes: + anicteric sclerae Neck: trachea midline, no thyromegaly Respiratory: normal respiratory effort; no labored breathing Auscultation: + diminished lung sounds (Throughout); no crackles, no rhonchi and no wheezes Cardiovascular: Rate/Rhythm: + tachycardic and + irregularly irregular Heart Sounds: no murmur Extremities: + edema (1+ edema to the knees bilaterally of the lower extremities) Gastrointestinal (Abdomen): normal bowel sounds, soft, nontender, no hepatosplenomegaly Musculoskeletal: Extremities: no cyanosis and no clubbing Skin: + erythema (Right greater than left legs with mild erythema and warmth much improved from yesterday) Neurologic: no focal motor deficits Psychiatric: Orientation: alert, oriented x 3 and cooperative Eye Contact: good eye contact Affect: + tearful affect Results & Data Results & Data ([facility]) Vital Signs (Past 12 Hours) Vital Signs Temp Pulse Resp BP Pulse Ox 05/04/20 14:00 108 H 25 H 107/71 94 05/04/20 13:04 126 H 18 110/63 96 05/04/20 12:00 123 H 22 127/73 90 05/04/20 11:00 112 H 24 109/68 97 05/04/20 10:15 117 H 20 99 05/04/20 10:00 127 H 19 114/74 98 05/04/20 09:32 93 05/04/20 09:17 36.3 C L 85 L 05/04/20 09:00 130 H 22 113/69 90 05/04/20 08:35 92 05/04/20 08:30 84 L 05/04/20 08:00 127 H 18 122/74 95 05/04/20 07:00 118 H 20 112/79 100 05/04/20 06:00 115 H 24 120/94 90 05/04/20 05:00 108 H 25 H 128/74 93 Laboratory Results 05/04/20 05/04/20 05/04/20 Range/Units 16:37 11:36 07:39 WBC (4.8-10.8) K/uL RBC (4.2-5.4) M/uL Hgb (12.0-16.0) g/dL Hct (37-47) % MCV (80-100) fL MCH (25-34) pg MCHC (32-36) g/dL RDW Std Deviation (36.4-46.3) fL RDW Coeff of Shannan (11.5-14.5) % Plt Count (130-400) K/uL MPV (7.4-10.4) fL Immature Gran % (Auto) % Neut % (Auto) % Lymph % (Auto) % [place] % (Auto) % Eos % (Auto) % Baso % (Auto) % Neut # (Auto) (1.4-6.5) K/uL Lymph # (Auto) (1.2-3.4) K/uL [place] # (Auto) (0.11-0.59) K/uL Eos # (Auto) (0-0.5) K/uL Baso # (Auto) (0-0.2) K/uL Immature Gran # (Auto) (0.00-0.02) K/uL Sodium (136-145) mmol/L Potassium (3.5-5.1) mmol/L Chloride (98-107) mmol/L Carbon Dioxide (21-32) mmol/L Anion Gap (3-11) BUN (7-18) mg/dl Creatinine (0.6-1.2) mg/dl Est Cr Clr Drug Dosing ml/min Est GFR ( Amer) Est GFR (Non-Af Amer) BUN/Creatinine Ratio (10-20) Glucose (70-99) mg/dl POC Glucose 192 H 213 H 173 H (70-99) mg/dl Calcium (8.5-10.1) mg/dl Phosphorus (2.5-4.9) mg/dl Magnesium (1.8-2.4) mg/dl 05/04/20 05/04/20 05/03/20 Range/Units 04:22 04:22 20:30 WBC 5.81 (4.8-10.8) K/uL RBC 4.03 L (4.2-5.4) M/uL Hgb 12.2 (12.0-16.0) g/dL Hct 40.6 (37-47) % MCV 100.7 H (80-100) fL MCH 30.3 (25-34) pg MCHC 30.0 L (32-36) g/dL RDW Std Deviation 59.7 H (36.4-46.3) fL RDW Coeff of Shannan 16.3 H (11.5-14.5) % Plt Count 203 (130-400) K/uL MPV 10.5 H (7.4-10.4) fL Immature Gran % (Auto) 0.3 % Neut % (Auto) 58.3 % Lymph % (Auto) 21.5 % [place] % (Auto) 13.4 % Eos % (Auto) 6.2 % Baso % (Auto) 0.3 % Neut # (Auto) 3.38 (1.4-6.5) K/uL Lymph # (Auto) 1.25 (1.2-3.4) K/uL [place] # (Auto) 0.78 H (0.11-0.59) K/uL Eos # (Auto) 0.36 (0-0.5) K/uL Baso # (Auto) 0.02 (0-0.2) K/uL Immature Gran # (Auto) 0.02 (0.00-0.02) K/uL Sodium 143 (136-145) mmol/L Potassium 5.5 H (3.5-5.1) mmol/L Chloride 104 (98-107) mmol/L Carbon Dioxide 36 H (21-32) mmol/L Anion Gap 3.0 (3-11) BUN 46 H (7-18) mg/dl Creatinine 1.32 H (0.6-1.2) mg/dl Est Cr Clr Drug Dosing 65.0 ml/min Est GFR ( Amer) 49.3 Est GFR (Non-Af Amer) 42.5 BUN/Creatinine Ratio 34.6 H (10-20) Glucose 166 H (70-99) mg/dl POC Glucose 233 H (70-99) mg/dl Calcium 8.7 (8.5-10.1) mg/dl Phosphorus 1.5 L* D (2.5-4.9) mg/dl Magnesium 2.7 H (1.8-2.4) mg/dl PG Care Time/CCT Total # of Minutes Spent Total Time Spent with Patient: Total time spent is greater than 50% in coordination of care (as documented) at patient's floor/unit and/or counseling patient: Coding Level of Care Code 35120 Subseq Hosp Care Lvl 3 Diagnoses Acute hypercapnic respiratory failure J96.02 Acute on chronic renal failure N17.9; N18.3 Acute renal failure type: unspecified Chronic kidney disease stage: stage 3 (moderate) Atrial flutter with rapid ventricular response I48.92 Paroxysmal atrial fibrillation I48.0 Acute on chronic diastolic heart failure I50.33 Tinea corporis B35.4 Tinea cruris B35.6 Cellulitis of right lower extremity L03.115 Hypothyroidism E03.9 HTN (hypertension) I10 Uncontrolled type 2 diabetes mellitus with kidney complication, with long-term current use of insulin E11.29; E11.65; Z79.4 Hyperkalemia E87.5 Obesity E66.9 Hypophosphatemia E83.39 DVT prophylaxis Z29.9 (1) Acute on chronic renal failure Acute renal failure type: unspecified Chronic kidney disease stage: stage 3 (moderate) Qualified Code(s): N17.9 - Acute kidney failure, unspecified; N18.3 - Chronic kidney disease, stage 3 (moderate)
[2020-05-04] MEDS ORDERED: INSULIN GLARGINE SOLOSTAR 100 UNITS/ML 3 ML PEN SC SCH (21:00)
[2020-05-05] MEDS: LEVOTHYROXINE SODIUM 50 MCG TABLET PO SCH (05:27)
[2020-05-05 05:32] LABS: BUN Creatinine Ratio 31.8 (10-20); Calcium 8.8 mg/dl (8.5-10.1); Creatinine Clr Calc Pharmacy 69.2 ml/min; Est GFR (African American) 54.2; Est GFR (Non-African American) 46.8; Magnesium 2.3 mg/dl (1.8-2.4); Potassium 4.9 mmol/L (3.5-5.1)
[2020-05-05] MEDS ORDERED: SODIUM PHOSPHATE 3 MMOL/1 ML INFUSION IV STA (07:48)
--- NOTE | 2020-05-05 07:51 | Hospitalist Progress Note ---
Date of Service May 05, 2020 Assessment & Plan (1) Acute hypercapnic respiratory failure: With development of lethargy and hypercapnia on ABG on 05/03 with a PaCO2 of 90 and pH 7.25 with a PaO2 of 77 on 5 L O2 With acute hypercapnic and hypoxic respiratory failure, requiring 5 L O2 Transferred to the ICU-now much improved after wearing BiPAP. Mental status is normal -Appreciate critical care/industrial editor consultation and have since transferred out of the ICU to PCU -Continue BiPAP at night 05/06 and she will continue this at rehab and then will need it arranged for home use after that -She is now weaned down to 1.5-2 L nasal cannula from 5 L oxygen mask with ongoing IV diuretics (2) Acute on chronic renal failure: Had rising creatinine after initial IV diuresis for CHF on admission, creatinine peaked at 3.2 and then trended back downward after IV diuretics were held Creatinine continues to improve down to 1.22 today despite IV Lasix use for the last several days -Follow BMP in the morning -Avoid nephrotoxins -Continue to hold home irbesartan but can likely restart tomorrow -Renally dose medications as needed (3) Atrial flutter with rapid ventricular response: Appreciate cardiology consult. Flutter ablation 04/28 and no further atrial flutter since then, but with atrial fibrillation as below Continue metoprolol. Apixaban uninterrupted -Continue amiodarone Cardiology is following [employer] copay will be $0 per CM (4) Paroxysmal atrial fibrillation: Developed rapid atrial fibrillation on the evening of 05/02 with rates in the 120s to 140s-rates continue to be uncontrolled but slightly improved with increasing doses of metoprolol -Now plan for DC cardioversion tomorrow morning given she has been on amiodarone and higher doses of metoprolol for 3 days now with no improvement -Hold metoprolol and amiodarone as per cardiology request for this evening's doses and make n.p.o. after midnight -Cardiology following -Continue monitor on telemetry -Follow electrolytes and replace as needed (5) Acute on chronic diastolic heart failure: Weight increased from 150 to 167 kg since prior admission 1 month ago. Pulmonary edema noted on admission CXR. Was initially diuresed with IV Lasix and then had acute kidney injury as above She then developed respiratory failure worsening as above with chest x-ray again with pulmonary edema on 05/03-this is now improved with IV diuretics Weight is now down significantly to 149 kg after resumption of IV Lasix -Continue Lasix 40 mg IV once daily and cardiology ordered an extra dose for this evening -Continue to follow Daily weights, I&Os, BMP -Continue fluid restriction and low-sodium diet (6) Tinea cruris: Use nystatin powder under skin folds (7) Cellulitis of right lower extremity: Was treated with ceftriaxone 2g IV daily x8 days and now much improved Monitor off antibiotics (8) Hypothyroidism: TSH normal at 3.56 on 04/26 -Continue levothyroxine 50 mcg PO daily (9) HTN (hypertension): Blood pressures are controlled -Continue metoprolol -Holding home irbesartan for PETE but will likely be able to restart after cardioversion tomorrow (10) Uncontrolled type 2 diabetes mellitus with kidney complication, with long- term current use of insulin: HbA1C 8.5 [03/2020] Hypoglycemic on admission, then became hyperglycemic Slightly improved since starting Lantus but remains hyperglycemic -Increase Lantus again to 20 units SQ at bedtime and continue NovoLog sliding scale (11) Hyperkalemia: Potassium now normal after restarting IV lasix -Continue Lasix IV which should help as well as adding on increased insulin levels -Follow BMP (12) Obesity: BMI 54.9 Gave encouragement for weight loss (13) Hypophosphatemia: Replaced with IV phos -Follow level in the morning (14) Dermatitis: This developed in the last month and is diffuse mostly on extensor surfaces of arms and legs as well as some on the back It does appear to look like psoriasis, but unclear diagnosis at this time It is itchy only if touched -Will not apply any topicals or treat with terbinafine as original plan at this time and will refer to dermatology after discharge as an outpatient-this was discussed with the patient and her sister at the bedside (15) DVT prophylaxis: Continue chronic anticoagulation with apixaban 5mg BID Disposition-continued stay on PCU [facility] medically stable-hopefully in the next 1 to 2 days after cardioversion Admission and Anticipated Discharge Date Admission Date: April 26, 2020 Subjective Patient feeling much better today. She was able to tolerate the BiPAP for several hours last night and feels more comfortable with it and is willing to keep trying it. Has some mild shortness of breath. Remains in rapid atrial fibrillation with rates in the 100s to 130s at times. Denies chest pain. She is eating well. There is a plan for cardioversion tomorrow with cardiology and we discussed this procedure. Review of Systems 2 Review of Systems: All systems reviewed & are unremarkable except as noted in HPI & below Physical Exam Constitutional: WD/WN, vitals as above + morbidly obese Eyes: + anicteric sclerae Neck: trachea midline, no thyromegaly Respiratory: normal respiratory effort; no labored breathing Auscultation: + diminished lung sounds (Throughout); no crackles, no rhonchi and no wheezes Cardiovascular: Rate/Rhythm: + tachycardic and + irregularly irregular Heart Sounds: no murmur Extremities: + edema (1+ edema to the knees bilaterally of the lower extremities) Gastrointestinal (Abdomen): normal bowel sounds, soft, nontender, no hepatosplenomegaly Musculoskeletal: Extremities: no cyanosis and no clubbing Skin: + rash (Diffuse rash on extensor surfaces of arms and legs that is pink with white scaly patches) and + erythema (Right greater than left legs with mild erythema and warmth much improved from yesterday) Neurologic: no focal motor deficits Psychiatric: Orientation: alert, oriented x 3 and cooperative Eye Contact: good eye contact Results & Data Results & Data ([facility]) Vital Signs (Past 12 Hours) Vital Signs Temp Pulse Resp BP Pulse Ox 05/05/20 05:00 107 H 22 142/85 H 98 05/05/20 04:00 36.5 C 111 H 19 122/83 96 05/05/20 03:00 110 H 16 122/84 96 05/05/20 02:40 109 H 18 96 05/05/20 02:00 110 H 22 106/59 L 93 05/05/20 01:00 114 H 23 106/62 91 05/05/20 00:00 36.6 C 108 H 24 97/66 L 92 05/04/20 23:00 112 H 19 134/102 H 94 05/04/20 22:26 119 H 27 H 93 05/04/20 22:00 115 H 16 132/94 100 05/04/20 21:00 114 H 22 118/77 97 05/04/20 20:00 36.6 C 116 H 25 H 100/74 95 Laboratory Results 05/05/20 05/05/20 05/05/20 Range/Units 16:09 11:46 05:57 Sodium (136-145) mmol/L Potassium (3.5-5.1) mmol/L Chloride (98-107) mmol/L Carbon Dioxide (21-32) mmol/L Anion Gap (3-11) BUN (7-18) mg/dl Creatinine (0.6-1.2) mg/dl Est Cr Clr Drug Dosing ml/min Est GFR ( Amer) Est GFR (Non-Af Amer) BUN/Creatinine Ratio (10-20) Glucose (70-99) mg/dl POC Glucose 223 H 204 H 183 H (70-99) mg/dl Calcium (8.5-10.1) mg/dl Phosphorus (2.5-4.9) mg/dl Magnesium (1.8-2.4) mg/dl 05/05/20 05/04/20 Range/Units 04:25 20:34 Sodium 144 (136-145) mmol/L Potassium 4.9 (3.5-5.1) mmol/L Chloride 103 (98-107) mmol/L Carbon Dioxide 40 H (21-32) mmol/L Anion Gap 1.0 L (3-11) BUN 39 H (7-18) mg/dl Creatinine 1.22 H (0.6-1.2) mg/dl Est Cr Clr Drug Dosing 69.2 ml/min Est GFR ( Amer) 54.2 Est GFR (Non-Af Amer) 46.8 BUN/Creatinine Ratio 31.8 H (10-20) Glucose 172 H (70-99) mg/dl POC Glucose 146 H (70-99) mg/dl Calcium 8.8 (8.5-10.1) mg/dl Phosphorus 2.0 L (2.5-4.9) mg/dl Magnesium 2.3 (1.8-2.4) mg/dl PG Care Time/CCT Total # of Minutes Spent Total Time Spent with Patient: Total time spent is greater than 50% in coordination of care (as documented) at patient's floor/unit and/or counseling patient: Coding Level of Care Code 37627 Subseq Hosp Care Lvl 3 Diagnoses Acute hypercapnic respiratory failure J96.02 Acute on chronic renal failure N17.9; N18.3 Acute renal failure type: unspecified Chronic kidney disease stage: stage 3 (moderate) Atrial flutter with rapid ventricular response I48.92 Paroxysmal atrial fibrillation I48.0 Acute on chronic diastolic heart failure I50.33 Tinea cruris B35.6 Cellulitis of right lower extremity L03.115 Hypothyroidism E03.9 HTN (hypertension) I10 Uncontrolled type 2 diabetes mellitus with kidney complication, with long-term current use of insulin E11.29; E11.65; Z79.4 Hyperkalemia E87.5 Obesity E66.9 Hypophosphatemia E83.39 Dermatitis L30.9 DVT prophylaxis Z29.9 (1) Acute on chronic renal failure Acute renal failure type: unspecified Chronic kidney disease stage: stage 3 (moderate) Qualified Code(s): N17.9 - Acute kidney failure, unspecified; N18.3 - Chronic kidney disease, stage 3 (moderate)
--- NOTE | 2020-05-05 07:54 | Pulmonology Progress Note ---
Date of Service May 05, 2020 Assessment & Plan (1) Acute hypercapnic respiratory failure: Impression: 64-year-old morbidly obese female with acute on chronic hypercarbic respiratory failure and associated hypoxemic respiratory failure. This likely is secondary to morbid obesity. She is clinically and metabolically improved on BiPAP. Recommendations: 1. Acute on chronic hypercarbic/hypoxemic respiratory failure: This is likely the acute recognition of a chronic problem. The patient likely has obesity hypoventilation syndrome and requires nocturnal positive airway pressure. She is tolerated it well. Would recommend nightly use of BiPAP 15/8 centimeters of water. She should also use BiPAP whenever she is sleeping. She will require an outpatient sleep study. Would recommend that case management work on setting up home BiPAP for the patient to go home with settings of 15/8 with indication being chronic hypercarbic respiratory failure/obesity hypoventilation syndrome. 2. Morbid obesity: Weight loss is mandatory. Consider outpatient referral to weight loss management. 3. A. fib/flutter: Management per cardiology. She is currently maintained on amiodarone. Continue telemetry. She is anticoagulated on Eliquis. Hopefully, diagnosis and therapy of her underlying sleep disordered breathing may result in increased propensity to remain in normal sinus. Defer to cardiology whether or not repeat cardioversion is warranted although she is at high risk for conscious sedation given underlying sleep disordered breathing. Defer management to anesthesia. Patient's pulmonary issues appear reasonably well addressed currently. We will continue to follow peripherally. Call if specific questions. (2) Acute on chronic renal failure: Acute renal failure type: unspecified Chronic kidney disease stage: stage 3 (moderate) Qualified Code(s): N17.9 - Acute kidney failure, unspecified; N18.3 - Chronic kidney disease, stage 3 (moderate) (3) Atrial flutter: (4) Acute on chronic diastolic (congestive) heart failure: Admission and Anticipated Discharge Date Admission Date: April 26, 2020 Subjective Seen and examined. EMR reviewed. The patient is up to a chair this morning and more awake and alert. She reports increased compliance with her positive airway pressure unit last evening and states that she is getting more comfortable with that and believes that she can use it nightly on an ongoing basis. Blood pressure is adequate. Review of Systems Review of Systems: All systems reviewed & are unremarkable except as noted in HPI & below Physical Exam Constitutional: + morbidly obese; no acute distress Eyes: PERRL, conjunctivae normal, anicteric sclerae ENMT: external ear and nose normal, oropharynx normal Neck: trachea midline, no thyromegaly Respiratory: Auscultation: + diminished lung sounds Cardiovascular: Rate/Rhythm: + tachycardic and + irregularly irregular Heart Sounds: normal S1 and normal S2 Vessels: no JVD Extremities: + edema (2+ peripheral) Gastrointestinal (Abdomen): normal bowel sounds, soft, nontender, no hepatosplenomegaly Skin: + rash (Eruptive, chronic) Results & Data Results & Data ([facility]) Vital Signs (Past 12 Hours) Vital Signs Temp Pulse Resp BP Pulse Ox 05/05/20 05:00 107 H 22 142/85 H 98 05/05/20 04:00 36.5 C 111 H 19 122/83 96 05/05/20 03:00 110 H 16 122/84 96 05/05/20 02:40 109 H 18 96 05/05/20 02:00 110 H 22 106/59 L 93 05/05/20 01:00 114 H 23 106/62 91 05/05/20 00:00 36.6 C 108 H 24 97/66 L 92 05/04/20 23:00 112 H 19 134/102 H 94 05/04/20 22:26 119 H 27 H 93 05/04/20 22:00 115 H 16 132/94 100 05/04/20 21:00 114 H 22 118/77 97 05/04/20 20:00 36.6 C 116 H 25 H 100/74 95 Laboratory Results 05/04/20 04:22 05/05/20 04:25 Diagnostic Findings No new imaging PG Care Time/CCT Total # of Minutes Spent Total Time Spent with Patient: Total time spent is greater than 50% in coordination of care (as documented) at patient's floor/unit and/or counseling patient: Coding Level of Care Code 67386 Subseq Hosp Care Lvl 2 Diagnoses Acute hypercapnic respiratory failure J96.02 Acute on chronic renal failure N17.9; N18.3 Acute renal failure type: unspecified Chronic kidney disease stage: stage 3 (moderate) Atrial flutter I48.92 Acute on chronic diastolic (congestive) heart failure I50.33
[2020-05-05] MEDS ORDERED: SODIUM PHOSPHATE 15 MMOL in SODIUM CHLORIDE 0.9% 250 ML IV ONE (08:30)
[2020-05-05] MEDS: FUROSEMIDE 40 MG in SYRINGE 0 ML IV SCH (09:32)
[2020-05-05] MEDS: MAGNESIUM CHLORIDE 64MG DELAYED REL TAB PO SCH ×2 (09:33→21:39)
[2020-05-05] MEDS: EZETIMIBE 10 MG TABLET PO SCH (09:33)
[2020-05-05] MEDS: METOPROLOL TARTRATE 50 MG TAB PO SCH ×3 (09:33→17:16)
[2020-05-05] MEDS: ASPIRIN 81 MG ECTAB PO SCH (09:34)
[2020-05-05] MEDS: CYANOCOBALAMIN 500 MCG TABLET (VITAMIN B-12) PO SCH (09:34)
[2020-05-05] MEDS: APIXABAN 5 MG TABLET PO SCH ×2 (09:34→21:38)
[2020-05-05] MEDS: AMIODARONE 200 MG TAB PO SCH ×2 (09:34→11:47)
[2020-05-05] MEDS: FERROUS SULFATE 325 MG TAB PO SCH (09:34)
[2020-05-05] MEDS: ATORVASTATIN 40 MG TAB PO SCH (09:35)
[2020-05-05] MEDS: PANTOprazole 40 MG TAB PO SCH (09:35)
[2020-05-05] MEDS: MULTIVITAMIN TAB PO SCH (09:35)
[2020-05-05] MEDS: NYSTATIN POWDER 15GM BTL EXT SCH ×2 (09:36→21:40)
[2020-05-05] MEDS: CLOTRIMAZOLE 1% CR 15 GM TUBE EXT SCH ×2 (09:37→21:39)
[2020-05-05] MEDS: INSULIN ASPART 100 UNITS/ML 3 ML PEN SC SCH ×4 (09:39→21:40)
[2020-05-05] MEDS ORDERED: FUROSEMIDE 40 MG in SYRINGE 0 ML IV ONE (15:54)
--- NOTE | 2020-05-05 16:02 | Cardiology Progress Note ---
Date of Service May 05, 2020 Assessment & Plan (1) Acute hypercapnic respiratory failure: (2) Acute on chronic renal failure: (3) Atrial flutter, paroxysmal: (4) Cellulitis of right lower extremity: (5) Stage III chronic kidney disease: (6) Chronic anticoagulation: (7) Persistent atrial fibrillation with rapid ventricular response: Patient clinically improved but dyspneic with any activity intermittently hypoxic. Heart rate still poorly controlled Renal function has returned to baseline and urine outputs increasing with IV diuretics. Discussed in detail with the patient she remains at elevated risk for intervention however atrial fibrillation rates poorly tolerated despite high- dose amiodarone and metoprolol. Patient appropriately anticoagulated Plan keep n.p.o. tonight for anticipated cardioversion in a.m. with cautious sedation. Additional dose of IV furosemide this evening Metoprolol and amiodarone to be held this evening Subjective Patient seen and examined, chart, medications, telemetry reviewed. Patient still subjectively dyspneic with any activity still tachycardic with minimal exertion. No syncope or near syncope. Renal function has returned to baseline and making urine with diuretics. Physical Exam Constitutional: + morbidly obese; no acute distress Eyes: PERRL, conjunctivae normal, anicteric sclerae ENMT: Mallampati Class: III Neck: trachea midline, no thyromegaly Respiratory: normal respiratory effort, lungs clear to auscultation Auscultation: + diminished lung sounds Cardiovascular: Rate/Rhythm: + tachycardic and + irregularly irregular Heart Sounds: normal S1 and normal S2 Vessels: no JVD Extremities: + edema (2+ peripheral) Gastrointestinal (Abdomen): normal bowel sounds, soft, nontender, no hepato splenomegaly Skin: + rash (Eruptive, chronic) Results & Data Vital Signs (Past 12 Hours) Vital Signs Temp Pulse Pulse Resp BP BP Pulse Ox 05/05/20 15:55 36.6 C 109 H 20 121/89 95 05/05/20 14:10 109 H 22 115/75 78 L 05/05/20 14:00 36.4 C L 101 H 18 92 05/05/20 12:04 118 H 26 H 05/05/20 11:00 116 H 23 96 05/05/20 10:11 139 H 22 05/05/20 09:00 115 H 20 129/90 97 05/05/20 08:00 128 H 21 135/108 H 97 05/05/20 07:00 122 H 20 155/75 H 96 05/05/20 05:00 107 H 22 142/85 H 98 05/05/20 04:00 36.5 C 111 H 19 122/83 96 Laboratory Results Laboratory Results - last 24 hr 05/04/20 05/04/20 05/05/20 16:37 20:34 04:25 Sodium 144 Potassium 4.9 Chloride 103 Carbon Dioxide 40 H Anion Gap 1.0 L BUN 39 H Creatinine 1.22 H Est Cr Clr Drug Dosing 69.2 Est GFR ( Amer) 54.2 Est GFR (Non-Af Amer) 46.8 BUN/Creatinine Ratio 31.8 H Glucose 172 H POC Glucose 192 H 146 H Calcium 8.8 Phosphorus 2.0 L Magnesium 2.3 05/05/20 05/05/20 05:57 11:46 Sodium Potassium Chloride Carbon Dioxide Anion Gap BUN Creatinine Est Cr Clr Drug Dosing Est GFR ( Amer) Est GFR (Non-Af Amer) BUN/Creatinine Ratio Glucose POC Glucose 183 H 204 H Calcium Phosphorus Magnesium (1) Acute on chronic renal failure Acute renal failure type: unspecified Chronic kidney disease stage: stage 3 (moderate) Qualified Code(s): N17.9 - Acute kidney failure, unspecified; N18.3 - Chronic kidney disease, stage 3 (moderate)
[2020-05-05] MEDS ORDERED: INSULIN GLARGINE SOLOSTAR 100 UNITS/ML 3 ML PEN SC SCH (21:00)
[2020-05-06 05:35] LABS: Basophils # (auto) 0.04 K/uL (0-0.2); Basophils % (auto) 0.6 %; Eosinophils # (auto) 0.38 K/uL (0-0.5); Eosinophils % (auto) 5.7 %; Hematocrit (blood only) 38.3 % (37-47); Hemoglobin 11.6 g/dL (12.0-16.0); Immature Granulocytes # (auto) 0.03 K/uL (0.00-0.02); Immature Granulocytes % (auto) 0.5 %; Lymphocytes # (auto) 1.71 K/uL (1.2-3.4); Lymphocytes % (auto) 25.9 %; Mean Corpuscular Hemoglobin 29.8 pg (25-34); Mean Corpuscular Hgb Conc 30.3 g/dL (32-36); Mean Corpuscular Volume 98.5 fL (80-100); Mean Platelet Volume 10.2 fL (7.4-10.4); Monocytes # (auto) 0.61 K/uL (0.11-0.59); Monocytes % (auto) 9.2 %; Neutrophils # (auto) 3.84 K/uL (1.4-6.5); Neutrophils % (auto) 58.1 %; Platelet Count 238 K/uL (130-400); RDW Coefficient of Variation 16.4 % (11.5-14.5); RDW Standard Deviation 59.4 fL (36.4-46.3); Red Blood Count 3.89 M/uL (4.2-5.4); White Blood Count 6.61 K/uL (4.8-10.8)
[2020-05-06 06:09] LABS: BUN Creatinine Ratio 24.2 (10-20); Calcium 8.5 mg/dl (8.5-10.1); Creatinine Clr Calc Pharmacy 65.9 ml/min; Est GFR (African American) 51.2; Est GFR (Non-African American) 44.1; Potassium 4.4 mmol/L (3.5-5.1)
[2020-05-06] MEDS: LEVOTHYROXINE SODIUM 50 MCG TABLET PO SCH (06:18)
[2020-05-06] MEDS ORDERED: ATROPINE SULFATE 0.1 MG/ML 10ML SYR IV ONE (07:19)
--- NOTE | 2020-05-06 07:22 | Anesthesiology Consultation ---
Date of Service May 06, 2020 Assessment & Plan (1) Encounter for pre-operative examination: Chart Review Chart Review: Acceptable Risk for Surgery Consults Requested none ASA ASA4 Proposed Anesthesia Anesthesia Type: MAC Risk / Benefits Reviewed With: PT / POA / Parent / Guardian, Accepts Plan and Informed Consent Obtained History Surgery Operation Date: 04/28/20 12:00 Proposed Procedures p Aflutter Ablation w/Mapping - Elena Galarza, Height/Weight Height: 5 ft 5 in Weight: 148.6 kg Allergies Allergy/AdvReac Type Severity Reaction Status Date / Time amoxicillin Allergy Severe SOB, RASH Verified 04/26/20 12:23 Penicillins Allergy Severe SOB, RASH Verified 04/26/20 12:23 clarithromycin Allergy Intermediate "feels Verified 04/26/20 12:23 like flying high" clindamycin Allergy Intermediate "feels Verified 04/26/20 12:23 like flying high" fluconazole Allergy Intermediate "feels Verified 04/26/20 12:23 like flying high" sulfamethoxazole Allergy Intermediate "feels Verified 04/26/20 12:23 like flying high" trimethoprim Allergy Intermediate "feels Verified 04/26/20 12:23 like flying high" Bactrim Allergy Unknown UNKNOWN Verified 02/21/18 10:32 codeine AdvReac Mild ITCHING, Verified 04/26/20 12:23 NAUSEA Medications Home Medications Medication Instructions Recorded Confirmed Last Taken aspirin [Aspirin Low Dose] 81 mg PO QAM #0 12/28/11 04/26/20 03/31/20 09:00 meclizine 12.5 mg PO TID PRN 10 Days #30 tab 09/26/16 04/26/20 07/20/19 amiodarone 200 mg tablet 200 mg PO QAM tab 06/05/19 04/26/20 03/31/20 09:00 irbesartan 300 mg tablet 300 mg PO QAM #30 tab 11/05/19 04/26/20 03/31/20 09:00 albuterol sulfate 90 mcg/actuation 2 puff INHALATION Q6H PRN #18 gm 11/19/19 04/26/20 Unknown aerosol inhaler atorvastatin 40 mg tablet 40 mg PO QAM #30 tab 11/27/19 04/26/20 03/31/20 09:00 levothyroxine 50 mcg tablet 50 mcg PO DAILY #30 tab 11/27/19 04/26/20 03/31/20 09:00 Praedicatuch Ultra Blue Test Strip #500 ea NS 12/01/19 03/24/20 Unknown torsemide 20 mg tablet 40 mg PO BID #120 tab 12/01/19 04/26/20 03/31/20 09:00 insulin syringe-needle U-100 1 mL #200 ea 12/04/19 03/24/20 Unknown 31 gauge x 5/16" ezetimibe 10 mg tablet 10 mg PO QAM #90 tab 02/17/20 04/26/20 03/31/20 09:00 ferrous sulfate 325 mg (65 mg 325 mg PO DAILY #90 tab 02/17/20 04/26/20 Unknown iron) tablet apixaban 5 mg tablet 5 mg PO Q12H #60 tab 02/20/20 04/26/20 03/31/20 09:00 metoprolol tartrate 100 mg tablet 100 mg PO BID #60 tab 03/16/20 04/26/20 03/31/20 09:00 pantoprazole 40 mg tablet,delayed 40 mg PO DAILY #30 tab 03/23/20 04/26/20 03/31/20 09:00 release calcitriol 0.25 mcg capsule 0.25 mcg PO UD #45 cap 03/24/20 04/26/20 Unknown cyanocobalamin (vitamin B-12) 1,000 mcg PO DAILY 03/24/20 04/26/20 Unknown 1,000 mcg tablet,extended release insulin aspart U-100 [Novolog 0 unit SUBCUT UD 03/31/20 04/26/20 Unknown U-100 Insulin aspart] multivitamin with folic acid 1 tab PO DAILY 03/31/20 04/26/20 Unknown magnesium chloride 64 mg 64 mg PO BID #90 tab 04/02/20 04/26/20 Unknown (magnesium chloride) tablet,delayed release Lantus U-100 Insulin 0 units SQ DAILY 04/26/20 04/26/20 Unknown Active Medications Generic Name Dose Route Start Last Admin Trade Name Freq PRN Reason Stop Dose Admin Amiodarone HCl 200 mg 05/01/20 12:00 05/05/20 11:47 Cordarone PO 05/31/20 11:59 200 mg TIDM [place] Administration Apixaban 5 mg 04/26/20 21:00 05/05/20 21:38 Eliquis PO 05/26/20 20:59 5 mg BID [place] Administration Aspirin 81 mg 04/27/20 09:00 05/05/20 09:34 Ecotrin Ectab PO 05/27/20 08:59 81 mg QAM [place] Administration Atorvastatin Calcium 40 mg 04/27/20 09:00 05/05/20 09:35 Lipitor PO 05/27/20 08:59 40 mg QAM [place] Administration Calcitriol 0.25 mcg 04/27/20 09:00 05/04/20 07:42 Rocaltrol PO 05/27/20 08:59 0.25 mcg [id number]@0900 [place] Administration Clotrimazole 1 appln 04/27/20 11:30 05/05/20 21:39 Lotrimin 1% EXT 05/27/20 11:29 1 appln BID [place] Administration Cyanocobalamin 1,000 mcg 04/27/20 09:00 05/05/20 09:34 Vitamin B-12 PO 05/27/20 08:59 1,000 mcg DAILY [place] Administration Ezetimibe 10 mg 04/27/20 09:00 05/05/20 09:33 Zetia PO 05/27/20 08:59 10 mg QAM [place] Administration Ferrous Sulfate 325 mg 04/27/20 09:00 05/05/20 09:34 Feosol PO 05/27/20 08:59 325 mg DAILY [place] Administration Furosemide 40 mg/ Syringe 4 mls @ 4 mls/min 05/04/20 09:30 05/05/20 09:32 IV 06/03/20 09:29 4 mls/min DAILY [place] Administration Insulin Aspart 0 units 04/26/20 16:38 05/05/20 21:40 Novolog Flexpen SC 05/26/20 16:37 3 units ACHS [place] Administration Insulin Glargine 20 units 05/05/20 21:00 05/05/20 21:38 Lantus Solostar Pen SC 06/04/20 20:59 20 units HS [place] Administration Irbesartan 300 mg 04/27/20 09:00 04/29/20 09:20 Avapro PO 05/27/20 08:59 300 mg QAM [place] Administration Levothyroxine Sodium 50 mcg 04/27/20 06:30 05/06/20 06:18 Synthroid PO 05/27/20 06:29 50 mcg DAILYBB [place] Administration Magnesium Chloride 64 mg 04/26/20 21:00 05/05/20 21:39 Slow-Mag PO 05/26/20 20:59 64 mg BID [place] Administration Metoprolol Tartrate 50 mg 05/04/20 13:00 05/05/20 17:16 Lopressor PO 06/03/20 12:59 50 mg QID [place] Administration Miscellaneous 15 - 30 gm 04/26/20 16:38 04/27/20 07:34 Carbohydrates For Hypoglycemia PO 05/26/20 16:37 15 gm UD PRN Administration Hypoglycemia Protocol Multivitamins 1 tab 04/27/20 09:00 05/05/20 09:35 Multivitamin Tab PO 05/27/20 08:59 1 tab DAILY [place] Administration Nystatin 1 appln 04/27/20 11:30 05/05/20 21:40 Mycostatin EXT 05/27/20 11:29 1 appln BID [place] Administration Ondansetron HCl 4 mg 04/30/20 07:55 05/02/20 17:15 Zofran IV 05/30/20 07:54 4 mg Q4H PRN Administration Nausea Pantoprazole Sodium 40 mg 04/27/20 09:00 05/05/20 09:35 Protonix PO 05/27/20 08:59 40 mg DAILY [place] Administration Sodium Chloride 1 sprays 05/04/20 08:38 05/04/20 08:45 [place] Nasal NA 06/03/20 08:37 1 sprays UD PRN Administration Dryness Past Medical History Medical History Atrial fibrillation (Acute) follows with Dr. Rapp---on eliquis Atrial flutter hx of Chronic anticoagulation (Chronic) Chronic obstructive pulmonary disease inhaler prn Chronic pain of left knee (Chronic) DJD Degenerative disc disease Diabetes mellitus, type 2 Diabetic foot ulcer associated with type 2 diabetes mellitus Diastolic CHF Hyperlipidemia Hypertension Hypothyroidism Lumbar radicular pain (Chronic) Myofascial pain (Chronic) Nausea and vomiting after administration of anesthetic agent Obesity On anticoagulant therapy eliquis daily Osteoarthritis Paroxysmal atrial fibrillation Spinal stenosis Spinal stenosis of lumbar region (Chronic) TIA (transient ischemic attack) (Resolved 07/14/14) Exercise / Class Metabolic Activity III < 4 Walking/Shop/Light housework Past Family History Family History Sister Family history of reaction to anesthesia nausea/vomiting Hypothyroidism Father Family history of reaction to anesthesia nausea/vomiting Family hx colonic polyps Hypertension Mother Diabetes Hypertension Denies family history of Breast cancer Colorectal cancer Past Surgical History Surgical History History of cardioversion x2 History of carpal tunnel surgery of left wrist History of colonoscopy with polypectomy History of lumpectomy of right breast benign History of tooth extraction most teeth removed--full upper denture/partial lower History of total hysterectomy with bilateral salpingo-oophorectomy (BSO) Past Anesthesia History No Hx of Anesthesia Complications and No Family Hx of Anesthesia Complications History of PONV No Hx of PONV and No Hx of Motion Sickness Social History Smoking Status: Former smoker tobacco type: e-cigarettes Do You Dip or Chew Tobacco: No Hx Alcohol Use: Yes Alcohol type: beer and wine alcohol intake frequency: holidays/special occasions only Hx Substance Use: No substance use type: does not use Physical Exam Vital Signs Last Vital Signs Temp 98.1 F 05/06/20 04:00 Pulse 124 H 05/06/20 07:27 Resp 18 05/06/20 04:00 BP 107/75 05/06/20 04:00 Pulse Ox 96 05/06/20 00:43 Constitutional + morbidly obese ENMT Mouth: + dentures (Upper) Thyromental Distance: > or= 3.5 Finger Breadths Mallampati Class: II Neck normal visual inspection Respiratory normal respiratory effort Auscultation: lungs clear to auscultation bilaterally Cardiovascular Rate/Rhythm: + abnormal rate and + abnormal rhythm Testing Laboratory Results 05/06/20 05:07 05/06/20 05:07 PT 11.1 Seconds (9.0-12.0) 04/26/20 11:54 INR 1.1 (0.9-1.1) 04/26/20 11:54 Urine Color Yellow 04/26/20 11:55 Urine Appearance Clear (Clear) 04/26/20 11:55 Urine pH 8.5 (4.5-7.5) H 04/26/20 11:55 Ur Specific [place] 1.012 (1.000-1.030) 04/26/20 11:55 Urine Protein Negative (Negative) 04/26/20 11:55 Urine Glucose (UA) Negative (Negative) 04/26/20 11:55 Urine Ketones Negative (Negative) 04/26/20 11:55 Urine Nitrite Negative (Negative) 04/26/20 11:55 Ur Leukocyte Esterase Negative (Negative) 04/26/20 11:55 04/26/20 16:07 Aerobic Blood Culture - Final Blood No growth in Aerobic bottle after 5 days. Anaerobic Blood Culture - Final 04/26/20 16:07 Aerobic Blood Culture - Final Blood No growth in Aerobic bottle after 5 days. Anaerobic Blood Culture - Final No growth in Anaerobic bottle after 5 days. 05/05/20 20:41 POC Glucose 177 H Electrocardiogram Date: 04/30/20 Sinus bradycardia, rate 58 bpm Low voltage QRS T wave abnormality, consider anterior ischemia Abnormal ECG When compared with ECG of 29-APR-2020 08:53, T wave inversion now evident in Anterior leads Confirmed by Mo Oviedo ([id number]) on 05/01/2020 7:11:00 AM Chest X-Ray Date: 05/03/20 IMPRESSION: Congestive heart failure. No significant change from the prior exam. Echocardiogram Date: 04/27/20 The rhythm is atrial flutter with RVR EF 55-60% Moderate concentric LVH RV appears mildly dilated in limited views RV systolic function is qualitatively normal LA is mild dilated Dilated IVC with normal inspiratory variation suggesting a right atrial pressure of 8 mmHg
[2020-05-06] MEDS ORDERED: SODIUM CHLORIDE 0.9% INJ 10 ML VIAL ONE (07:25)
[2020-05-06] MEDS ORDERED: PROPOFOL IV EMULSION 10 MG/ML 20 ML VIAL IV ONE (07:25)
[2020-05-06] MEDS ORDERED: ONDANSETRON INJ 2 MG/ML 2 ML VIAL ONE ×2 (07:51→07:52)
--- NOTE | 2020-05-06 07:57 | Anesthesiology Progress Note ---
Date of Service May 06, 2020 Anesthesia Post Procedure Vital Signs Vital Signs: Temp Pulse Pulse Pulse Resp BP BP 05/06/20 07:31 124 H 18 125/88 05/06/20 07:27 124 H 05/06/20 04:00 98.1 F 129 H 18 107/75 05/06/20 00:43 97.7 F 127 H 24 101/67 05/06/20 00:00 102 H 05/05/20 20:27 97.7 F 123 H 22 104/80 05/05/20 15:55 97.9 F 109 H 20 121/89 05/05/20 14:10 109 H 22 115/75 05/05/20 14:00 97.5 F L 101 H 18 05/05/20 12:04 118 H 26 H 05/05/20 11:00 116 H 23 05/05/20 10:11 139 H 22 05/05/20 09:00 115 H 20 129/90 05/05/20 08:00 128 H 21 135/108 H Pulse Ox 05/06/20 07:31 89 L 05/06/20 07:27 05/06/20 04:00 05/06/20 00:43 96 05/06/20 00:00 05/05/20 20:27 95 05/05/20 15:55 95 05/05/20 14:10 78 L 05/05/20 14:00 92 05/05/20 12:04 05/05/20 11:00 96 05/05/20 10:11 05/05/20 09:00 97 05/05/20 08:00 97 Transfer of Care Handoff Completed per policy Notes Mental Status: alert / awake / arousable and participated in evaluation Patient Amnestic to Procedure: Yes Nausea / Vomiting: adequately controlled Pain: adequately controlled Airway Patency, RR, SpO2: stable & adequate BP & HR: stable & adequate Hydration State: stable & adequate Anesthetic Complications: no major complications apparent and Pt Satisfied with anesthetic care
--- NOTE | 2020-05-06 07:59 | Cardioversion ---
Date of Service May 06, 2020 Electrical Cardioversion Rpt Electrical Cardioversion Report Patient was seen and examined, chart medications telemetry reviewed. Procedure synchronized electrical cardioversion discussed in detail and informed consent obtained Patient sedated using anesthesia consultation with cautious monitoring of O2 sats end-tidal CO2 blood pressure and heart rate. Synchronized electrical cardioversion using biphasic 200 J countershock was performed with successful conversion to sinus rhythm but prompt relapse into atrial fibrillation. Second procedure performed with 225 J with maintenance of sinus. Post procedure patient aroused having tolerated other than mild nausea. Initial EKG sinus rhythm QT corrected 498 Plan continue medical therapies. If atrial fibrillation recurs will likely consider AV junction ablation/pacemaker
[2020-05-06] MEDS: FUROSEMIDE 40 MG in SYRINGE 0 ML IV SCH (09:00)
[2020-05-06] MEDS: INSULIN ASPART 100 UNITS/ML 3 ML PEN SC SCH ×4 (09:01→22:33)
[2020-05-06] MEDS: CLOTRIMAZOLE 1% CR 15 GM TUBE EXT SCH ×2 (09:03→21:20)
[2020-05-06] MEDS: MAGNESIUM CHLORIDE 64MG DELAYED REL TAB PO SCH ×2 (09:03→21:20)
[2020-05-06] MEDS: ATORVASTATIN 40 MG TAB PO SCH (09:03)
[2020-05-06] MEDS: APIXABAN 5 MG TABLET PO SCH ×2 (09:04→21:20)
[2020-05-06] MEDS: PANTOprazole 40 MG TAB PO SCH (09:04)
[2020-05-06] MEDS: CYANOCOBALAMIN 500 MCG TABLET (VITAMIN B-12) PO SCH (09:04)
[2020-05-06] MEDS: CALCITRIOL 0.25 MCG CAPSULE PO SCH (09:04)
[2020-05-06] MEDS: EZETIMIBE 10 MG TABLET PO SCH (09:04)
[2020-05-06] MEDS: MULTIVITAMIN TAB PO SCH (09:04)
[2020-05-06] MEDS: FERROUS SULFATE 325 MG TAB PO SCH (09:04)
[2020-05-06] MEDS: ASPIRIN 81 MG ECTAB PO SCH (09:04)
[2020-05-06] MEDS: NYSTATIN POWDER 15GM BTL EXT SCH ×2 (09:05→21:20)
--- NOTE | 2020-05-06 10:59 | Cardiology Progress Note ---
Date of Service May 06, 2020 Assessment & Plan (1) Acute hypercapnic respiratory failure: (2) Acute on chronic renal failure: (3) Atrial flutter, paroxysmal: (4) Cellulitis of right lower extremity: (5) Stage III chronic kidney disease: (6) Chronic anticoagulation: (7) Persistent atrial fibrillation with rapid ventricular response: Patient underwent successful synchronized electrical cardioversion this morning and hopefully will not relapse promptly. Future options would likely r equire AV junction ablation with pacemaker We will resume metoprolol 50 mg twice daily and amiodarone 200 mg twice daily Continue to treat underlying hypoventilation issues Discontinue IV Lasix and resume torsemide initially at 10 mg twice per day Maintain telemetry Subjective Patient seen and examined, chart, medications, telemetry reviewed. Patient underwent synchronized electrical cardioversion earlier today with eventual return to sinus rhythm after 2 countershocks. Patient tolerated procedure relatively well given light sedation only. No bradycardia arrhythmias. Renal function has returned to baseline Physical Exam Constitutional: + morbidly obese; no acute distress Eyes: PERRL, conjunctivae normal, anicteric sclerae ENMT: Mallampati Class: III Neck: trachea midline, no thyromegaly Respiratory: normal respiratory effort, lungs clear to auscultation Auscultation: + diminished lung sounds Cardiovascular: Rate/Rhythm: + tachycardic and + irregularly irregular He art Sounds: normal S1 and normal S2 Vessels: no JVD Extremities: + edema (2+ peripheral) Gastrointestinal (Abdomen): normal bowel sounds, soft, nontender, no hepatosplenomegaly Skin: + rash (Eruptive, chronic) Results & Data Vital Signs (Past 12 Hours) Vital Signs Temp Pulse Pulse Pulse Resp BP BP 05/06/20 09:18 79 05/06/20 08:54 36.7 C 74 20 120/72 05/06/20 08:20 71 16 05/06/20 08:05 66 16 05/06/20 07:50 71 16 05/06/20 07:31 124 H 18 05/06/20 07:27 124 H 05/06/20 04:00 36.7 C 129 H 18 107/75 05/06/20 00:43 36.5 C 127 H 24 101/67 05/06/20 00:00 102 H BP Pulse Ox 05/06/20 09:18 07/16/20 08:54 95 05/06/20 08:20 120/72 94 05/06/20 08:05 112/63 94 05/06/20 07:50 127/74 94 05/06/20 07:31 125/88 89 L 05/06/20 07:27 05/06/20 04:00 05/06/20 00:43 96 05/06/20 00:00 Laboratory Results Laboratory Results - last 24 hr 05/05/20 05/05/20 05/05/20 11:46 16:09 20:41 WBC RBC Hgb Hct MCV MCH MCHC RDW Std Deviation RDW Coeff of Shannan Plt Count MPV Immature Gran % (Auto) Neut % (Auto) Lymph % (Auto) [place] % (Auto) Eos % (Auto) Baso % (Auto) Neut # (Auto) Lymph # (Auto) [place] # (Auto) Eos # (Auto) Baso # (Auto) Immature Gran # (Auto) Sodium Potassium Chloride Carbon Dioxide Anion Gap BUN Creatinine Est Cr Clr Drug Dosing Est GFR ( Amer) Est GFR (Non-Af Amer) BUN/Creatinine Ratio Glucose POC Glucose 204 H 223 H 177 H Calcium 05/06/20 05/06/20 05/06/20 05:07 05:07 09:00 WBC 6.61 RBC 3.89 L Hgb 11.6 L Hct 38.3 MCV 98.5 MCH 29.8 MCHC 30.3 L RDW Std Deviation 59.4 H RDW Coeff of Shannan 16.4 H Plt Count 238 MPV 10.2 Immature Gran % (Auto) 0.5 Neut % (Auto) 58.1 Lymph % (Auto) 25.9 [place] % (Auto) 9.2 Eos % (Auto) 5.7 Baso % (Auto) 0.6 Neut # (Auto) 3.84 Lymph # (Auto) 1.71 [place] # (Auto) 0.61 H Eos # (Auto) 0.38 Baso # (Auto) 0.04 Immature Gran # (Auto) 0.03 H Sodium 145 Potassium 4.4 Chloride 102 Carbon Dioxide 41 H* Anion Gap 2.0 L BUN 31 H Creatinine 1.28 H Est Cr Clr Drug Dosing 65.9 Est GFR ( Amer) 51.2 Est GFR (Non-Af Amer) 44.1 BUN/Creatinine Ratio 24.2 H Glucose 140 H POC Glucose 175 H Calcium 8.5 (1) Acute on chronic renal failure Acute renal failure type: unspecified Chronic kidney disease stage: stage 3 (moderate) Qualified Code(s): N17.9 - Acute kidney failure, unspecified; N18.3 - Chronic kidney disease, stage 3 (moderate)
--- NOTE | 2020-05-06 11:54 | Hospitalist Progress Note ---
Date of Service May 06, 2020 Assessment & Plan (1) Acute hypercapnic respiratory failure: With development of lethargy and hypercapnia on ABG on 05/03 with a PaCO2 of 90 and pH 7.25 with a PaO2 of 77 on 5 L O2 With acute hypercapnic and hypoxic respiratory failure, requiring 5 L O2 Transferred to the ICU-now much improved after wearing BiPAP and further IV diuretics. Mental status is back to normal -Appreciate critical care/card assembler consultation and have since transferred out of the ICU to PCU -Continue BiPAP at night 05/06 and she will continue this at rehab and then will need it arranged for home use after that -She is now weaned down to 1.5-2 L nasal cannula from 5 L oxygen mask with ongoing IV diuretics -Her serum bicarbonate is rising each day but some of this is likely due to contraction alkalosis with IV diuresis-converting to p.o. torsemide today (2) Acute on chronic renal failure: Had rising creatinine after initial IV diuresis for CHF on admission, creatinine peaked at 3.2 and then trended back downward after IV diuretics were held Creatinine continues to improve down to 1.28 today despite IV Lasix use for the last several days -Follow BMP in the morning -Avoid nephrotoxins -Continue to hold home irbesartan but will restart tomorrow -Renally dose medications as needed (3) Atrial flutter with rapid ventricular response: Appreciate cardiology consult. Flutter ablation 04/28 and no further atrial flutter since then, but with atrial fibrillation as below Continue metoprolol. Continue apixaban uninterrupted -Continue amiodarone Cardiology is following Dino copay will be $0 per CM (4) Paroxysmal atrial fibrillation: Developed rapid atrial fibrillation on the evening of 05/02 with rates in the 120s to 140s-rates continued to be uncontrolled with increasing doses of metoprolol -Now status post DC cardioversion on 05/06 and remains in sinus rhythm -Continue metoprolol tartrate 50 mg p.o. twice daily and amiodarone 200 mg p.o. twice daily as per cardiology -If has recurrence of rapid atrial fibrillation, cardiology recommends considering AV junction ablation with pacemaker placement -Continue to treat obesity hypoventilation with BiPAP as above -Cardiology following -Continue monitor on telemetry -Follow electrolytes and replace as needed (5) Acute on chronic diastolic heart failure: Weight increased from 150 to 167 kg since prior admission 1 month ago. However, her weight dropped 15 kg in 1 day this hospitalization making the initial measured weight likely unreliable. Nonetheless, she has lost 3 to 4 kg of weight since the second day of admission and is clinically improved Pulmonary edema noted on admission CXR. Was initially diuresed with IV Lasix and then had acute kidney injury as above She then developed respiratory failure worsening as above with chest x-ray again with pulmonary edema on 05/03-this is now improved with IV diuretics -We will now discontinue IV Lasix and convert back to her home torsemide 10 mg p.o. twice daily -Continue to follow Daily weights, I&Os, BMP -Continue fluid restriction and low-sodium diet (6) Tinea cruris: Use nystatin powder under skin folds (7) Cellulitis of right lower extremity: Was treated with ceftriaxone 2g IV daily x8 days and now much improved Monitor off antibiotics (8) Hypothyroidism: TSH normal at 3.56 on 04/26 -Continue levothyroxine 50 mcg PO daily (9) HTN (hypertension): Blood pressures are controlled -Continue metoprolol -Restart home irbesartan which was previously held for PETE (10) Uncontrolled type 2 diabetes mellitus with kidney complication, with long- term current use of insulin: HbA1C 8.5 [03/2020] Hypoglycemic on admission, then became hyperglycemic Slightly improved since starting Lantus but remains hyperglycemic into the 300s today -Increase Lantus again to 22 units SQ at bedtime and continue NovoLog sliding scale-tighten down correction factor and carb ratio today as well (11) Hyperkalemia: Potassium now normal after restarting IV lasix -Continue loop diuretics -Follow BMP (12) Obesity: BMI 54.5 Gave encouragement for weight loss (13) Hypophosphatemia: Now resolved after replacement (14) Dermatitis: This developed in the last month and is diffuse mostly on extensor surfaces of arms and legs as well as some on the back It does appear to look like psoriasis, but unclear diagnosis at this time It is itchy only if touched -Will not apply any topicals or treat with terbinafine as original plan at this time and will refer to dermatology after discharge as an outpatient-this was discussed with the patient and her sister at the bedside (15) DVT prophylaxis: Continue chronic anticoagulation with apixaban 5mg BID Disposition-continued stay on PCU Plan [facility] when medically stable-possibly on Sunday if she remains in a normal sinus rhythm. She does not need insurance authorization for this Admission and Anticipated Discharge Date Admission Date: April 26, 2020 Anticipated date of discharge: 05/07/20 Subjective Patient had a cardioversion this morning I saw her hour or 2 later after that. She was still a little bit drowsy and felt slightly nauseated. She did receive ketamine for anesthesia with it. She denied chest pain or shortness of breath. She remains in normal sinus rhythm since her cardioversion. She had no other concerns. She was able to wear her BiPAP but not for very long last night but she is willing to keep trying. Review of Systems Review of Systems: All systems reviewed & are unremarkable except as noted in HPI & below Physical Exam Constitutional: WD/WN, vitals as above + morbidly obese Eyes: + anicteric sclerae Neck: trachea midline, no thyromegaly Respiratory: normal respiratory effort; no labored breathing Auscultation: + diminished lung sounds (Throughout); no crackles, no rhonchi and no wheezes Cardiovascular: Rate/Rhythm: regular rate and regular rhythm Heart Sounds: no murmur Extremities: + edema (1+ edema to the knees bilaterally of the lower extremities) Gastrointestinal (Abdomen): normal bowel sounds, soft, nontender, no hepatosplenomegaly Musculoskeletal: Extremities: no cyanosis and no clubbing Skin: + rash (Diffuse rash on extensor surfaces of arms and legs that is pink with white scaly patches) and + erythema (Right greater than left legs with mild erythema and warmth much improved from yesterday) Neurologic: no focal motor deficits Psychiatric: Orientation: alert, oriented x 3 and cooperative Results & Data Results & Data ([facility]) Vital Signs (Past 12 Hours) Vital Signs Temp Pulse Pulse Pulse Resp BP BP 05/06/20 11:37 79 05/06/20 11:35 37.0 C 109 H 22 109/57 L 05/06/20 09:18 79 05/06/20 08:54 36.7 C 74 20 120/72 05/06/20 08:20 71 16 05/06/20 08:05 66 16 05/06/20 07:50 71 16 05/06/20 07:31 124 H 18 05/06/20 07:27 124 H 05/06/20 04:00 36.7 C 129 H 18 107/75 05/06/20 00:43 36.5 C 127 H 24 101/67 05/06/20 00:00 102 H BP Pulse Ox 05/06/20 11:37 05/06/20 11:35 95 05/06/20 09:18 05/06/20 08:54 95 05/06/20 08:20 120/72 94 05/06/20 08:05 112/63 94 05/06/20 07:50 127/74 94 05/06/20 07:31 125/88 89 L 05/06/20 07:27 05/06/20 04:00 05/06/20 00:43 96 05/06/20 00:00 Laboratory Results 05/06/20 05/06/20 05/06/20 Range/Units 16:18 11:14 11:13 WBC (4.8-10.8) K/uL RBC (4.2-5.4) M/uL Hgb (12.0-16.0) g/dL Hct (37-47) % MCV (80-100) fL MCH (25-34) pg MCHC (32-36) g/dL RDW Std Deviation (36.4-46.3) fL RDW Coeff of Shannan (11.5-14.5) % Plt Count (130-400) K/uL MPV (7.4-10.4) fL Immature Gran % (Auto) % Neut % (Auto) % Lymph % (Auto) % [place] % (Auto) % Eos % (Auto) % Baso % (Auto) % Neut # (Auto) (1.4-6.5) K/uL Lymph # (Auto) (1.2-3.4) K/uL [place] # (Auto) (0.11-0.59) K/uL Eos # (Auto) (0-0.5) K/uL Baso # (Auto) (0-0.2) K/uL Immature Gran # (Auto) (0.00-0.02) K/uL Sodium (136-145) mmol/L Potassium (3.5-5.1) mmol/L Chloride (98-107) mmol/L Carbon Dioxide (21-32) mmol/L Anion Gap (3-11) BUN (7-18) mg/dl Creatinine (0.6-1.2) mg/dl Est Cr Clr Drug Dosing ml/min Est GFR ( Amer) Est GFR (Non-Af Amer) BUN/Creatinine Ratio (10-20) Glucose (70-99) mg/dl POC Glucose 244 H 297 H 323 H* (70-99) mg/dl Calcium (8.5-10.1) mg/dl 05/06/20 05/06/20 05/06/20 Range/Units 09:00 05:07 05:07 WBC 6.61 (4.8-10.8) K/uL RBC 3.89 L (4.2-5.4) M/uL Hgb 11.6 L (12.0-16.0) g/dL Hct 38.3 (37-47) % MCV 98.5 (80-100) fL MCH 29.8 (25-34) pg MCHC 30.3 L (32-36) g/dL RDW Std Deviation 59.4 H (36.4-46.3) fL RDW Coeff of Shannan 16.4 H (11.5-14.5) % Plt Count 238 (130-400) K/uL MPV 10.2 (7.4-10.4) fL Immature Gran % (Auto) 0.5 % Neut % (Auto) 58.1 % Lymph % (Auto) 25.9 % [place] % (Auto) 9.2 % Eos % (Auto) 5.7 % Baso % (Auto) 0.6 % Neut # (Auto) 3.84 (1.4-6.5) K/uL Lymph # (Auto) 1.71 (1.2-3.4) K/uL [place] # (Auto) 0.61 H (0.11-0.59) K/uL Eos # (Auto) 0.38 (0-0.5) K/uL Baso # (Auto) 0.04 (0-0.2) K/uL Immature Gran # (Auto) 0.03 H (0.00-0.02) K/uL Sodium 145 (136-145) mmol/L Potassium 4.4 (3.5-5.1) mmol/L Chloride 102 (98-107) mmol/L Carbon Dioxide 41 H* (21-32) mmol/L Anion Gap 2.0 L (3-11) BUN 31 H (7-18) mg/dl Creatinine 1.28 H (0.6-1.2) mg/dl Est Cr Clr Drug Dosing 65.9 ml/min Est GFR ( Amer) 51.2 Est GFR (Non-Af Amer) 44.1 BUN/Creatinine Ratio 24.2 H (10-20) Glucose 140 H (70-99) mg/dl POC Glucose 175 H (70-99) mg/dl Calcium 8.5 (8.5-10.1) mg/dl 05/05/20 Range/Units 20:41 WBC (4.8-10.8) K/uL RBC (4.2-5.4) M/uL Hgb (12.0-16.0) g/dL Hct (37-47) % MCV (80-100) fL MCH (25-34) pg MCHC (32-36) g/dL RDW Std Deviation (36.4-46.3) fL RDW Coeff of Shannan (11.5-14.5) % Plt Count (130-400) K/uL MPV (7.4-10.4) fL Immature Gran % (Auto) % Neut % (Auto) % Lymph % (Auto) % [place] % (Auto) % Eos % (Auto) % Baso % (Auto) % Neut # (Auto) (1.4-6.5) K/uL Lymph # (Auto) (1.2-3.4) K/uL [place] # (Auto) (0.11-0.59) K/uL Eos # (Auto) (0-0.5) K/uL Baso # (Auto) (0-0.2) K/uL Immature Gran # (Auto) (0.00-0.02) K/uL Sodium (136-145) mmol/L Potassium (3.5-5.1) mmol/L Chloride (98-107) mmol/L Carbon Dioxide (21-32) mmol/L Anion Gap (3-11) BUN (7-18) mg/dl Creatinine (0.6-1.2) mg/dl Est Cr Clr Drug Dosing ml/min Est GFR ( Amer) Est GFR (Non-Af Amer) BUN/Creatinine Ratio (10-20) Glucose (70-99) mg/dl POC Glucose 177 H (70-99) mg/dl Calcium (8.5-10.1) mg/dl PG Care Time/CCT Total # of Minutes Spent Total Time Spent with Patient: Total time spent is greater than 50% in coordination of care (as documented) at patient's floor/unit and/or counseling patient: Coding Level of Care Code 97305 Subseq Hosp Care Lvl 3 Diagnoses Acute hypercapnic respiratory failure J96.02 Acute on chronic renal failure N17.9; N18.3 Acute renal failure type: unspecified Chronic kidney disease stage: stage 3 (moderate) Atrial flutter with rapid ventricular response I48.92 Paroxysmal atrial fibrillation I48.0 Acute on chronic diastolic heart failure I50.33 Tinea cruris B35.6 Cellulitis of right lower extremity L03.115 Hypothyroidism E03.9 HTN (hypertension) I10 Uncontrolled type 2 diabetes mellitus with kidney complication, with long-term current use of insulin E11.29; E11.65; Z79.4 Hyperkalemia E87.5 Obesity E66.9 Hypophosphatemia E83.39 Dermatitis L30.9 DVT prophylaxis Z29.9 (1) Acute on chronic renal failure Acute renal failure type: unspecified Chronic kidney disease stage: stage 3 (moderate) Qualified Code(s): N17.9 - Acute kidney failure, unspecified; N18.3 - Chronic kidney disease, stage 3 (moderate)
--- NOTE | 2020-05-06 14:16 | Pulmonology Progress Note ---
Date of Service May 06, 2020 Assessment & Plan (1) Acute hypercapnic respiratory failure: Impression: 64-year-old morbidly obese female with acute on chronic hypercarbic respiratory failure and associated hypoxemic respiratory failure. This likely is secondary to morbid obesity. She is clinically and metabolically improved on BiPAP. Recommendations: 1. Acute on chronic hypercarbic/hypoxemic respiratory failure: This is likely the acute recognition of a chronic problem. The patient likely has obesity hypoventilation syndrome and requires nocturnal positive airway pressure. She is tolerated it well. Would recommend nightly use of BiPAP 15/8 centimeters of water. She should also use BiPAP whenever she is sleeping. She will require an outpatient sleep study. Would recommend that case management work on setting up home BiPAP for the patient to go home with settings of 15/8 with indication being chronic hypercarbic respiratory failure/obesity hypoventilation syndrome. The settings are pending outpatient sleep study. 2. Morbid obesity: Weight loss is mandatory. Consider outpatient referral to weight loss management. 3. A. fib/flutter: Management per cardiology. The patient was advised that treatment with positive airway pressure in patients with significant sleep disordered breathing can improve rates of maintaining in normal sinus rhythm. Patient's pulmonary issues appear reasonably well addressed currently. We will sign off at this point time. Feel free to contact us if we can be of additional assistance. (2) Acute on chronic renal failure: Acute renal failure type: unspecified Chronic kidney disease stage: stage 3 (moderate) Qualified Code(s): N17.9 - Acute kidney failure, unspecified; N18.3 - Chronic kidney disease, stage 3 (moderate) (3) Atrial flutter: (4) Acute on chronic diastolic (congestive) heart failure: Admission and Anticipated Discharge Date Admission Date: April 26, 2020 Subjective Patient seen and examined. Discussed with cardiology. The patient is status post repeat cardioversion this morning. She states she was able to use BiPAP for a few hours last evening. She is getting more comfortable with the device. No other changes Review of Systems Review of Systems: Unchanged from prior Physical Exam Constitutional: + morbidly obese; no acute distress Eyes: PERRL, conjunctivae normal, anicteric sclerae ENMT: external ear and nose normal, oropharynx normal Neck: trachea midline, no thyromegaly Respiratory: Auscultation: + diminished lung sounds Cardiovascular: Rate/Rhythm: + tachycardic and + irregularly irregular Heart Sounds: normal S1 and normal S2 Vessels: no JVD Extremities: + edema (2+ peripheral) Gastrointestinal (Abdomen): normal bowel sounds, soft, nontender, no hepatosplenomegaly Skin: + rash (Eruptive, chronic) Results & Data Results & Data ([facility] [place]) Vital Signs (Past 12 Hours) Vital Signs Temp Pulse Pulse Pulse Resp BP BP 05/06/20 11:37 79 05/06/20 11:35 37.0 C 109 H 22 109/57 L 05/06/20 09:18 79 05/06/20 08:54 36.7 C 74 20 120/72 05/06/20 08:20 71 16 05/06/20 08:05 66 16 05/06/20 07:50 71 16 05/06/20 07:31 124 H 18 05/06/20 07:27 124 H 05/06/20 04:00 36.7 C 129 H 18 107/75 BP Pulse Ox 05/06/20 11:37 05/06/20 11:35 95 05/06/20 09:18 05/06/20 08:54 95 05/06/20 08:20 120/72 94 05/06/20 08:05 112/63 94 05/06/20 07:50 127/74 94 05/06/20 07:31 125/88 89 L 05/06/20 07:27 05/06/20 04:00 Laboratory Results 05/06/20 05:07 05/06/20 05:07 Diagnostic Findings No new films PG Care Time/CCT Total # of Minutes Spent Total Time Spent with Patient: Total time spent is greater than 50% in coordination of care (as documented) at patient's floor/unit and/or counseling patient: Coding Level of Care Code 73682 Subseq Hosp Care Lvl 2 Diagnoses Acute hypercapnic respiratory failure J96.02 Acute on chronic renal failure N17.9; N18.3 Acute renal failure type: unspecified Chronic kidney disease stage: stage 3 (moderate) Atrial flutter I48.92 Acute on chronic diastolic (congestive) heart failure I50.33
[2020-05-06] MEDS: TORSEMIDE 10 MG TAB PO SCH (17:32)
--- NOTE | 2020-05-06 19:05 | Electrocardiogram Report ---
Test Reason : Blood Pressure : / mmHG Vent. Rate : 067 BPM Atrial Rate : 067 BPM P-R Int : 168 ms QRS Dur : 080 ms QT Int : 472 ms P-R-T Axes : 074 050 025 degrees QTc Int : 498 ms Normal sinus rhythm Nonspecific ST abnormality Prolonged QT Abnormal ECG When compared with ECG of 30-APR-2020 01:07, T wave inversion no longer evident in Anterior leads Confirmed by Tyson Gallegos ([id number]) on 05/06/2020 7:05:08 PM Referred By: REFERRED SELF Confirmed By:Monty Gallegos
[2020-05-06] MEDS ORDERED: INSULIN GLARGINE SOLOSTAR 100 UNITS/ML 3 ML PEN SC SCH (21:00)
[2020-05-06] MEDS: AMIODARONE 200 MG TAB PO SCH (21:20)
[2020-05-06] MEDS: METOPROLOL TARTRATE 50 MG TAB PO SCH (21:20)
[2020-05-07] MEDS: LEVOTHYROXINE SODIUM 50 MCG TABLET PO SCH (06:32)
[2020-05-07 07:20] LABS: BUN Creatinine Ratio 19.2 (10-20); Calcium 8.4 mg/dl (8.5-10.1); Creatinine Clr Calc Pharmacy 58.2 ml/min; Est GFR (African American) 44.4; Est GFR (Non-African American) 38.3; Magnesium 2.1 mg/dl (1.8-2.4); Potassium 4.5 mmol/L (3.5-5.1)
[2020-05-07] MEDS: IRBESARTAN 150 MG TAB PO SCH (07:59)
[2020-05-07] MEDS: METOPROLOL TARTRATE 50 MG TAB PO SCH (07:59)
[2020-05-07] MEDS: AMIODARONE 200 MG TAB PO SCH (07:59)
[2020-05-07] MEDS: CLOTRIMAZOLE 1% CR 15 GM TUBE EXT SCH (07:59)
[2020-05-07] MEDS: EZETIMIBE 10 MG TABLET PO SCH (08:00)
[2020-05-07] MEDS: PANTOprazole 40 MG TAB PO SCH (08:00)
[2020-05-07] MEDS: TORSEMIDE 10 MG TAB PO SCH (08:00)
[2020-05-07] MEDS: MAGNESIUM CHLORIDE 64MG DELAYED REL TAB PO SCH (08:00)
[2020-05-07] MEDS: MULTIVITAMIN TAB PO SCH (08:00)
[2020-05-07] MEDS: FERROUS SULFATE 325 MG TAB PO SCH (08:00)
[2020-05-07] MEDS: ASPIRIN 81 MG ECTAB PO SCH (08:00)
[2020-05-07] MEDS: APIXABAN 5 MG TABLET PO SCH (08:00)
[2020-05-07] MEDS: ATORVASTATIN 40 MG TAB PO SCH (08:00)
[2020-05-07] MEDS: CYANOCOBALAMIN 500 MCG TABLET (VITAMIN B-12) PO SCH (08:00)
[2020-05-07] MEDS: NYSTATIN POWDER 15GM BTL EXT SCH (08:01)
[2020-05-07] MEDS: INSULIN ASPART 100 UNITS/ML 3 ML PEN SC SCH ×2 (08:03→12:46)
--- NOTE | 2020-05-07 13:21 | Cardiology Progress Note ---
Date of Service May 07, 2020 Assessment & Plan (1) Acute hypercapnic respiratory failure: (2) Acute on chronic renal failure: (3) Atrial flutter, paroxysmal: (4) Cellulitis of right lower extremity: (5) Stage III chronic kidney disease: (6) Chronic anticoagulation: (7) Persistent atrial fibrillation with rapid ventricular response: Complex patient with paroxysmal A. fib flutter now in sinus rhythm on amiodarone and metoprolol status post synchronized electrical cardioversion yesterday. Underlying history is notable for obesity with hypoventilation Diastolic heart failure with preserved left ventricular systolic function right greater than left secondary to hypoventilation Patient having better tolerance and responding to CPAP/BiPAP Recommendations continue amiodarone 200 mg twice per day for 2 weeks and metoprolol 50 mg twice per day indefinitely Continue oral diuretics currently on reduced dose torsemide will need close clinical follow-up including daily weights and upward titration necessary Continue anticoagulation with Eliquis Would hold ibesartan, if needed for blood pressure would restart at lower dosing. Limited indications for congestive heart failure with preserved ejection fraction Subjective Patient seen and examined, chart, medications, telemetry reviewed. Patient remains in sinus rhythm ARB restarted this morning with blood pressures currently running low No chest pains or worsening shortness of breath. Weight stable Renal function stay Physical Exam Constitutional: + morbidly obese; no acute distress Eyes: PERRL, conjunctivae normal, anicteric sclerae ENMT: Mallampati Class: III Neck: trachea midline, no thyromegaly Respiratory: normal respiratory effort, lungs clear to auscultation Auscultation: + diminished lung sounds Cardiovascular: Rate/Rhythm: + tachycardic and + irregularly irregular Heart Sounds: normal S1 and normal S2 Vessels: no JVD Extremities: + edema (2+ peripheral) Gastrointestinal (Abdomen): normal bowel sounds, soft, nontender, no hepatosplenomegaly Skin: + rash (Eruptive, chronic) Results & Data Vital Signs (Past 12 Hours) Vital Signs Temp Pulse Pulse Resp BP Pulse Ox 05/07/20 11:23 36.3 C L 66 20 98/59 L 93 05/07/20 08:00 66 05/07/20 07:06 36.6 C 63 19 111/70 97 05/07/20 03:52 36.8 C 63 23 101/61 97 05/07/20 03:15 57 L 17 95 (1) Acute on chronic renal failure Acute renal failure type: unspecified Chronic kidney disease stage: stage 3 (moderate) Qualified Code(s): N17.9 - Acute kidney failure, unspecified; N18.3 - Chronic kidney disease, stage 3 (moderate)
--- NOTE | 2020-05-07 15:21 | Discharge Summary ---
Date of Service May 07, 2020 Admission HPI Per Admitting Provider Iveth Perkins is a 64 year old female with paroxysmal atrial flutter who presents from her cardiology follow up visit with Dr Rapp with atrial flutter with RVR. She denies having any palpitations or increased shortness of breath or fatigue from when she was discharged after cardioversion 1 month previously, however she does note about 30lb of weight gain since then. Her legs are also more swollen and erythematous which she notes happens from time to time and sometimes she is treated with antibiotics. She also notes a rash which started prior to her last admission in 2 spots although now is present over bilateral thighs and forearms with excoriation avilez and white crusting skin thickening areas. Admission Exam Per Admitting Provider Constitutional: well developed and + morbidly obese; + not well nourished and no acute distress Eyes: PERRL, conjunctivae normal, anicteric sclerae ENMT: external ear and nose normal, oropharynx normal Neck: trachea midline, + short neck and + thick neck Respiratory: normal respiratory effort; no respiratory distress Auscultation: + diminished lung sounds (bibasal); no crackles and no wheezes Cardiovascular: Rate/Rhythm: regular rhythm and + tachycardic Heart Sounds: no murmur Vessels: no JVD (unable to adequately assess with neck size) Extremities: normal capillary refill and + pedal edema (3+ b/l pitting to thighs); no calf tenderness Gastrointestinal (Abdomen): Inspection/Auscultation: normal bowel sounds Percussion/Palpation: abdomen soft; abdomen nontender, no guarding and abdomen not rigid Musculoskeletal: no cyanosis or clubbing, extremities motor strength 5/5 Skin: b/l lower extremity edema and erythema with bright red and warmth surrounding open skin tear on right posterior calf approximately 10cm in diameter Erythematous follicular pattern on b/l forearms and thighs. Crusting present on b/l forearms with excoriation avilez, skin thickening with crusting present on left elbow consistent with psoriatic plaque Neurologic: moves all extremities and awake; no focal motor deficits Motor/Sensory: + sensory deficit (stocking distribution numbness to ankles b/l equal) Psychiatric: A+Ox3, euthymic affect Genitourinary: no CVA tenderness Lymphatic: no cervical or axillary lymphadenopathy Principal Diagnosis Acute on chronic congestive heart failure Atrial flutter with RVR Atrial fibrillation with RVR Cellulitis Obesity hypoventilation Obstructive sleep apnea Discharge Exam Patient reports stable shortness of breath. No recurrence of a. fib since cardioversion yesterday. Still with significant b/l leg pitting edema although her weight is down significantly since admission Constitutional well developed and + morbidly obese; + not well nourished and no acute distress Eyes + anicteric sclerae; normal pupil size ENMT external ear and nose normal, oropharynx normal Neck trachea midline, + short neck and + thick neck Respiratory normal respiratory effort; no respiratory distress Auscultation: + diminished lung sounds (Throughout, worse bibasal); no crackles, no rhonchi and no wheezes Cardiovascular Rate/Rhythm: regular rate and regular rhythm Heart Sounds: no murmur Vessels: no JVD (unable to adequately assess with neck size) Extremities: normal capillary refill, + pedal edema (3+ b/l pitting to thighs) and + edema; no calf tenderness Gastrointestinal (Abdomen) Inspection/Auscultation: normal bowel sounds; abdomen not distended Percussion/Palpation: abdomen soft; abdomen nontender, no guarding and abdomen not rigid Musculoskeletal Extremities: no cyanosis and no clubbing Skin no rashes, warm and dry (LE redness c/w chronic venous stasis) + rash (Diffuse rash on extensor surfaces of arms and legs that is pink with white scaly patches) Neurologic moves all extremities and awake; no focal motor deficits and not confused Speech / Cognition: normal speech Motor/Sensory: + sensory deficit (stocking distribution numbness to ankles b/l equal) Psychiatric Orientation: alert, oriented x 3 and cooperative Eye Contact: good eye contact Affect: euthymic affect Discharge Data Allergies Allergy/AdvReac Type Severity Reaction Status Date / Time amoxicillin Allergy Severe SOB, RASH Verified 04/26/20 12:23 Penicillins Allergy Severe SOB, RASH Verified 04/26/20 12:23 clarithromycin Allergy Intermediate "feels Verified 04/26/20 12:23 like flying high" clindamycin Allergy Intermediate "feels Verified 04/26/20 12:23 like flying high" fluconazole Allergy Intermediate "feels Verified 04/26/20 12:23 like flying high" sulfamethoxazole Allergy Intermediate "feels Verified 04/26/20 12:23 like flying high" trimethoprim Allergy Intermediate "feels Verified 04/26/20 12:23 like flying high" Bactrim Allergy Unknown UNKNOWN Verified 02/21/18 10:32 codeine AdvReac Mild ITCHING, Verified 04/26/20 12:23 NAUSEA Consultations 04/26/20 14:48 ED Decision to Admit Stat 04/26/20 16:38 Consult Cardiology Routine 04/28/20 13:56 Consult Procurement Inspector Routine 05/03/20 13:06 Consult Procurement Inspector Stat 05/05/20 15:57 Consult Anesthesiology Routine Procedures Performed Operation Date: 04/28/20 12:00 Actual Procedures p EPS + Ablation for SVT Flutter - DO kinsey Lynch [place] Pacing (Add-On) - DO kinsey Lynch Ultrasound Vascular Access - Elena Galarza DO Operation Date: 05/06/20 07:15 Actual Procedures p Cardioversion - Matt Schreiber MD Ordered Studies 04/28/20 07:15 EP Lab Images for PACS ONCE Hospital Course (1) Acute hypercapnic respiratory failure: Iveth Perkins is a 64-year-old female admitted to [facility] [address] from April 26-2019 due to acute on chronic diastolic heart failure due to atrial flutter with rapid ventricular rate in the setting of right lower extremity cellulitis. The right lower extremity cellulitis was treated with intravenous ceftriaxone and she is now completed this course of antibiotics. Given recurrence of atrial flutter causing heart failure she underwent ablation on April 28. She developed acute renal injury with creatinine 3.2 suspected to be secondary to overdiuresis and irbesartan use. She converted back into atrial fibrillation requiring cardioversion on May 06, 2020. She has been in normal sinus rhythm since then on amiodarone. She is to continue amiodarone 200 mg twice daily for 2 weeks with outpatient follow-up with cardiology in this time. Please see additional instructions for congestive heart failure as below. She should monitor her weight daily. She is likely to get back into the congestive heart failure if back in atrial fibrillation or flutter with rapid ventricular rate. However, she is on a lower dose of torsemide on discharge as she is currently in normal sinus rhythm and her weight has been decreasing. She required a brief ICU admission due to acute on chronic hypoxic hypercapnic respiratory failure requiring BiPAP. Recommend she stays on BiPAP 05/06 nightly whenever napping until follow-up with outpatient sleep study. She is also been developing a rash for the past month since her last hospitalization. Suspected to be folliculitis on admission. However has not responded to ceftriaxone given for cellulitis or clotrimazole cream. Possible nummular eczema vs. tinea cruris. Recommend outpatient dermatology appointment for follow-up for this. Kind regards, Dr. 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 FLUTTER WITH RVR, HYPOGLYCEMIA, CELLULITIS Discharge Diagnosis: Acute on chronic congestive heart failure Atrial flutter with RVR Atrial fibrillation with RVR Cellulitis Obesity hypoventilation Obstructive sleep apnea Activity: Resume your previous activity Non-emergency contact: Primary Care Provider Call non-emergency contact if: you have any medication questions Follow-up/Referrals: Jimbo Srivastava III, MD [Primary Care Provider] - Diet: Carb Consistent or DM2, Heart Healthy and Low Sodium (2gm) Fluids: 1500ml (6 cups) Addtl Attending Provider Instructions: Iveth Perkins is a 64-year-old female admitted to [facility] from April 26-2019 due to acute on chronic diastolic heart failure due to atrial flutter with rapid ventricular rate in the setting of right lower extremity cellulitis. The right lower extremity cellulitis was treated with intravenous ceftriaxone and she is now completed this course of antibiotics. Given recurrence of atrial flutter causing heart failure she underwent ablation on April 28. She developed acute renal injury with creatinine 3.2 suspected to be secondary to overdiuresis and irbesartan use. She went back into atrial fibrillation requiring cardioversion on May 06, 2020. She has been in normal sinus rhythm since then on amiodarone. She is to continue amiodarone 200 mg twice daily for 2 weeks with outpatient follow-up with cardiology in this time. Please see additional instructions for congestive heart failure as below. She is likely to get back into the congestive heart failure if back in atrial fibrillation or flutter with rapid ventricular rate. However, she is on a lower dose of torsemide on discharge as she is currently in normal sinus rhythm and her weight has been decreasing. She required a brief ICU admission due to acute on chronic hypoxic hypercapnic respiratory failure requiring BiPAP. Recommend she stays on BiPAP 15/8 nightly whenever napping until follow-up with outpatient sleep study. She is also been developing a rash for the past month since her last hospitalization. Suspected to be folliculitis on admission. However has not responded to ceftriaxone given for cellulitis or clotrimazole cream. Possible nummular eczema vs. tinea cruris. Recommend outpatient dermatology appointment for follow-up for this. Kind regards, Dr. Leonardo Mcgill Addtl Talent Coordinator Provider Instructions: Call 911 and go to the Emergency Room if: * You have tightness or pain in your chest that does not go away with rest or Nitroglycerin * You are very short of breath even with rest Call your doctor if any of the following symptoms or problems start or get worse: * Shortness of breath or difficulty breathing * Wake up at night short of breath * Chest pain * Cough * Swelling of your hands, fee, or legs * More fatigued or tired with your normal activity * Palpitations - sudden fast heart beats WEIGHT * Weigh yourself every morning after using the bathroom. * Use the same scale. * Wear the same amount of clothing. * Write your weight down on your chart. * Call your doctor if you gain more than 2-3 pounds in 1-2 days. MEDICATIONS * Use this discharge instruction sheet for instructions. * Take your medications at the time your doctor ordered. * Do not skip a dose of your medicines. * If you miss a dose of medicine, take as soon as possible, but DO NOT DOUBLE A DOSE. * Read your medicine information when you get home. * Know all of the side effects of your medicine. * Call your doctor's office if you have any side effects. * Be sure all of your doctors know what medicine and herbs you take (including cold, flu, and herbal medicine). * Pain Medicine: If you do not get relief from your pain, please call your doctor for help. Take the following with you to your follow-up doctor appointments: * Weight Chart * Medication List * List of questions Do not drink excessive alcohol, beer or wine. Pending Studies at Discharge: No Stand-Alone Forms: My [facility] Skilled Items Patient informed of condition?: Yes DNR: No (All treatments outside of a cardiac arrest) Discharge Level of Care: Acute rehab Communicable Disease: No Discharge Prognosis: Stable Lines: None Urinary Catheter: No Medications and DC Order Prescriptions: New nystatin [Nystop] 100,000 unit/gram Powder 1 applic EXT BID Qty: 30 RF: 0 Continued aspirin [Aspirin Low Dose] 81 mg Tablet,Delayed Release (Dr/Ec) 81 mg PO QAM Qty: 0 RF: 0 meclizine 12.5 mg Tablet 12.5 mg PO TID PRN (Reason: Dizziness) 10 Days Qty: 30 RF: 0 albuterol sulfate 90 mcg/actuation HFA aerosol inhaler 2 puff INHALATION Q6H PRN (Reason: Shortness Of Breath) Qty: 18 RF: 6 atorvastatin [Lipitor] 40 mg tablet 40 mg PO QAM Qty: 30 RF: 5 levothyroxine 50 mcg tablet 50 mcg PO DAILY Qty: 30 RF: 11 (DME) insulin syringe-needle U-100 [BD Insulin Syringe Ultra-Fine] 1 mL 31 gauge x 5/16 syringe See Rx Instructions [id number] .MEDSUPPLY Qty: 200 RF: 5 ezetimibe 10 mg tablet 10 mg PO QAM Qty: 90 RF: 3 ferrous sulfate 325 mg (65 mg iron) tablet 325 mg PO DAILY Qty: 90 RF: 3 apixaban 5 mg tablet 5 mg PO Q12H Qty: 60 RF: 5 pantoprazole [Protonix] 40 mg tablet,delayed release (DR/EC) 40 mg PO DAILY Qty: 30 RF: 5 calcitriol 0.25 mcg capsule 0.25 mcg PO UD Qty: 45 RF: 3 magnesium chloride 64 mg tablet,delayed release (DR/EC) 64 mg PO BID Qty: 90 RF: 3 cyanocobalamin (vitamin B-12) 1,000 mcg tablet extended release 1,000 mcg PO DAILY RF: 0 (DME) OneTouch Ultra Blue Test Strip Strip See Dose Instructions .ROUTE .MEDSUPPLY Qty: 500 RF: 3 multivitamin with folic acid 400 mcg Tablet 1 tab PO DAILY RF: 0 Changed Lantus U-100 Insulin 100 unit/mL solution 22 units SQ HS Qty: 0 RF: 0 torsemide 20 mg tablet 10 mg PO BID Qty: 120 RF: 4 metoprolol tartrate 100 mg tablet 50 mg PO BID Qty: 60 RF: 11 amiodarone 200 mg tablet 200 mg PO BID 14 Days Qty: 14 RF: 0 insulin aspart U-100 [Novolog U-100 Insulin aspart] 100 unit/mL solution See Rx Instructions .ROUTE .COMPLEX Qty: 10 RF: 0 Discontinued irbesartan 300 mg tablet 300 mg PO QAM Qty: 30 RF: 5 Discharge Orders: Discharge Order (Routine); Ordered 05/07/20 Ordered By: Leonardo Mcgill Admission Data Admit Date/Time: 04/26/20 15:40 Attending Provider: Leonardo Mcgill Admit Provider: Leonardo Mcgill Primary Care Provider: Jimbo Srivastava III Other Providers: [facility] ; Leonardo Mcgill ; Alfonso Coleman ; Daniel Ross ; Aditya Navarrete ; Mayo Juárez Other Interventions: Discharge Summary Assessment (RN) Last Done: 05/07/20 15:27 DC Date/Time DO NOT enter until pt leaves facility: 05/07/20 17:03 Coding Level of Care Code D/C Day Management >30 mins Diagnoses Acute hypercapnic respiratory failure J96.02 Acute on chronic renal failure N17.9; N18.3 Acute renal failure type: unspecified Chronic kidney disease stage: stage 3 (moderate) Atrial flutter with rapid ventricular response I48.92 Paroxysmal atrial fibrillation I48.0 Acute on chronic diastolic heart failure I50.33 Tinea cruris B35.6 Cellulitis of right lower extremity L03.115 Hypothyroidism E03.9 HTN (hypertension) I10 Uncontrolled type 2 diabetes mellitus with kidney complication, with long-term current use of insulin E11.29; E11.65; Z79.4 Hyperkalemia E87.5 Obesity E66.9 Hypophosphatemia E83.39 Dermatitis L30.9 DVT prophylaxis Z29.9
--- NOTE | 2020-05-12 12:44 | Critical Care Consultation ---
Date of Consultation April 28, 2020 May 12, 2020 Assessment & Plan (1) Respiratory insufficiency following shock, trauma, or surgery: Reason Critically Ill: Patient requiring positioning restriction and has airway obstruction secondary to body habitus. PLAN: Neuro: Sedatives until positioning restriction expires Resp: Respiratory insufficiency -Patient was successfully extubated when positioning restriction CV: Postoperative state -Monitor on telemetry Fluids/Renal: Maintenance fluids ID: Postprocedural antibiotics per primary GI/Nutrition: N.p.o. Heme: DVT prophylaxis: Per primary Endocrine: ICU hyperglycemia protocol Vascular access: Peripheral IVs Code Status: Full code Disposition: Stable for downgrade out of ICU status post extubation (2) Post-operative state: (3) CONSTANCE (obstructive sleep apnea): (4) Airway obstruction, anatomic: History of Present Illness Reason for Consultation: Postprocedural respiratory insufficiency Requesting Physician: Tyler Lynne MD Attending Physician: Leonardo Mcgill MD History of Present Illness Patient is a 65-year-old female who underwent a electrophysiology study and subsequent ablation. She is a past medical history of COPD, obstructive sleep apnea and morbid obesity with a BMI of greater than 50. During the procedure she was given small amounts of sedatives and had significant respiratory depression. Additionally the patient must lay supine after the procedure for several hours. It is felt that the patient would best benefit from a secure airway given the frequency of obstruction and somnolence and inability to sit up for several hours. She will be admitted to the ICU for airway management and probable extubation after the positioning restriction expires. Allergies Allergy/AdvReac Type Severity Reaction Status Date / Time amoxicillin Allergy Severe SOB, RASH Verified 04/26/20 12:23 Penicillins Allergy Severe SOB, RASH Verified 04/26/20 12:23 clarithromycin Allergy Intermediate "feels Verified 04/26/20 12:23 like flying high" clindamycin Allergy Intermediate "feels Verified 04/26/20 12:23 like flying high" fluconazole Allergy Intermediate "feels Verified 04/26/20 12:23 like flying high" sulfamethoxazole Allergy Intermediate "feels Verified 04/26/20 12:23 like flying high" trimethoprim Allergy Intermediate "feels Verified 04/26/20 12:23 like flying high" Bactrim Allergy Unknown UNKNOWN Verified 02/21/18 10:32 codeine AdvReac Mild ITCHING, Verified 04/26/20 12:23 NAUSEA Home Medications Home Medications Medication Instructions Recorded Confirmed Type aspirin [Aspirin Low Dose] 81 mg PO QAM #0 12/28/11 04/26/20 History meclizine 12.5 mg PO TID PRN 10 Days #30 tab 09/26/16 04/26/20 History albuterol sulfate 90 mcg/actuation 2 puff INHALATION Q6H PRN #18 gm 11/19/19 04/26/20 Rx aerosol inhaler atorvastatin 40 mg tablet 40 mg PO QAM #30 tab 11/27/19 04/26/20 Rx levothyroxine 50 mcg tablet 50 mcg PO DAILY #30 tab 11/27/19 04/26/20 Rx [email or web address] Ultra Blue Test Strip #500 ea NS 12/01/19 03/24/20 Rx insulin syringe-needle U-100 1 mL #200 ea 12/04/19 03/24/20 Rx 31 gauge x 5/16" ezetimibe 10 mg tablet 10 mg PO QAM #90 tab 02/17/20 04/26/20 Rx ferrous sulfate 325 mg (65 mg 325 mg PO DAILY #90 tab 02/17/20 04/26/20 Rx iron) tablet apixaban 5 mg tablet 5 mg PO Q12H #60 tab 02/20/20 04/26/20 Rx pantoprazole 40 mg tablet,delayed 40 mg PO DAILY #30 tab 03/23/20 04/26/20 Rx release calcitriol 0.25 mcg capsule 0.25 mcg PO UD #45 cap 03/24/20 04/26/20 Rx cyanocobalamin (vitamin B-12) 1,000 mcg PO DAILY 03/24/20 04/26/20 History 1,000 mcg tablet,extended release multivitamin with folic acid 1 tab PO DAILY 03/31/20 04/26/20 History magnesium chloride 64 mg 64 mg PO BID #90 tab 04/02/20 04/26/20 Rx (magnesium chloride) tablet,delayed release Lantus U-100 Insulin 22 units SQ HS #0 ml 05/07/20 04/26/20 Rx amiodarone 200 mg PO BID 14 Days #14 tab 05/07/20 04/26/20 Rx insulin aspart U-100 [Novolog See Rx Instructions .ROUTE 05/07/20 04/26/20 Rx U-100 Insulin aspart] .COMPLEX #10 ml metoprolol tartrate 50 mg PO BID #60 tab 05/07/20 04/26/20 Rx nystatin [Nystop] 1 applic EXT BID #30 gm 05/07/20 Rx torsemide 10 mg PO BID #120 tab 05/07/20 04/26/20 Rx Patient History Medical History Atrial fibrillation (Acute) follows with Dr. Rapp---on eliquis Atrial flutter hx of Chronic anticoagulation (Chronic) Chronic obstructive pulmonary disease inhaler prn Chronic pain of left knee (Chronic) DJD Degenerative disc disease Diabetes mellitus, type 2 Diabetic foot ulcer associated with type 2 diabetes mellitus Diastolic CHF Hyperlipidemia Hypertension Hypothyroidism Lumbar radicular pain (Chronic) Myofascial pain (Chronic) Nausea and vomiting after administration of anesthetic agent Obesity On anticoagulant therapy eliquis daily Osteoarthritis Paroxysmal atrial fibrillation Spinal stenosis Spinal stenosis of lumbar region (Chronic) TIA (transient ischemic attack) (Resolved 07/14/14) Surgical History (Updated 05/12/20 @ 12:41 by Daniel Ross DO) History of cardioversion x2 History of carpal tunnel surgery of left wrist History of colonoscopy with polypectomy History of lumpectomy of right breast benign History of tooth extraction most teeth removed--full upper denture/partial lower History of total hysterectomy with bilateral salpingo-oophorectomy (BSO) Family History Sister Family history of reaction to anesthesia nausea/vomiting Hypothyroidism Father Family history of reaction to anesthesia nausea/vomiting Family hx colonic polyps Hypertension Mother Diabetes Hypertension Denies family history of Breast cancer Colorectal cancer Social History Smoking Status: Former smoker Second Hand Exposure: Yes; Hx Alcohol Use: Yes Alcohol type: beer and wine Hx Substance Use: No Preferred Language: [place] Communication Ability: Effective Structural Shop Helper Required: No Beliefs That Will Affect Care: None Current Living Situation: Family current occupational status: retired Feels Safe at Home: Yes Review of Systems Review of Systems: Unobtainable due to endotracheal tube Physical Exam Physical Exam: General: Sedated nontoxic. Skin: Warm, dry, Head: Atraumatic Ears, nose, mouth and throat: Endotracheal tube present Cardiovascular: Normal peripheral perfusion Respiratory: no respiratory distress Gastrointestinal: Non distended Musculoskeletal: No deformity Coding Level of Care Code 95129 Inpt Consult Level 5 Diagnoses Respiratory insufficiency following shock, trauma, or surgery Post-operative state Z98.890 CONSTANCE (obstructive sleep apnea) G47.33 Airway obstruction, anatomic J98.8
== END 2020-05-07 17:03 | DRG 273 ==
LOC: ED 11:30 → SUATTDRO 15:40 → 2S 15:40 → 1E 04-28 14:33 → 2S 04-29 18:39 → 1E 05-03 13:45 → 2S 05-06 06:41

== ENCOUNTER 2021-06-15 16:22 | Inpatient (IN) ==
[2021-06-15 17:39] LABS: INR 2.1 (0.9-1.1); Partial Thromboplastin Ratio 1.4; Partial Thromboplastin Time 37.2 Seconds (21.0-31.0); Prothrombin Time 20.5 Seconds (9.0-12.0)
[2021-06-15 17:41] LABS: Alanine Aminotransferase 14 U/L (12-78); Albumin Level 2.9 gm/dl (3.4-5.0); Aspartate Aminotransferase 14 U/L (15-37); BUN Creatinine Ratio 22.8 (10-20); Blood Urea Nitrogen 76 mg/dl (7-18); Calcium 8.5 mg/dl (8.5-10.1); Carbon Dioxide 30 mmol/L (21-32); Chloride 100 mmol/L (98-107); Creatinine Clr Calc Pharmacy 25.6 ml/min; Est GFR (African American) 15.8 ml/min; Est GFR (Non-African American) 13.7 ml/min; Glucose 132 mg/dl (70-99); Magnesium 3.4 mg/dl (1.8-2.4); Potassium 5.4 mmol/L (3.5-5.1); Sodium 137 mmol/L (136-145)
[2021-06-15 17:44] LABS: Basophils # (auto) 0.01 K/uL (0-0.2); Basophils % (auto) 0.1 %; Eosinophils # (auto) 0.14 K/uL (0-0.5); Eosinophils % (auto) 1.7 %; Hematocrit (blood only) 33.8 % (37-47); Hemoglobin 10.1 g/dL (12.0-16.0); Immature Granulocytes # (auto) 0.08 K/uL (0.00-0.02); Lymphocytes # (auto) 1.27 K/uL (1.2-3.4); Lymphocytes % (auto) 15.1 %; Mean Corpuscular Hemoglobin 30.3 pg (25-34); Mean Corpuscular Hgb Conc 29.9 g/dL (32-36); Mean Corpuscular Volume 101.5 fL (80-100); Mean Platelet Volume 9.3 fL (7.4-10.4); Monocytes % (auto) 8.3 %; Neutrophils # (auto) 6.22 K/uL (1.4-6.5); Neutrophils % (auto) 73.8 %; Platelet Count 341 K/uL (130-400); RDW Coefficient of Variation 15.7 % (11.5-14.5); RDW Standard Deviation 58.4 fL (36.4-46.3); Red Blood Count 3.33 M/uL (4.2-5.4); White Blood Count 8.42 K/uL (4.8-10.8)
[2021-06-15 17:46] LABS: Albumin Globulin Ratio 0.7 (0.9-2); Alkaline Phosphatase 89 U/L (45-117); Bilirubin,Total 0.3 mg/dl (0.2-1); Globulin 4.4 gm/dl (2.5-4.0); Total Protein 7.3 gm/dl (6.4-8.2); Troponin I < 0.015 ng/ml (0-0.045)
[2021-06-15] MEDS ORDERED: VANCOMYCIN HCL 2,500 MG in SODIUM CHLORIDE 0.9% 500 ML IV ONE (20:38)
[2021-06-15] MEDS ORDERED: VANCOMYCIN CONSULT ACTIVE PRN (20:38)
[2021-06-15] MEDS ORDERED: cefTRIAXone SODIUM 1,000 MG/50 ML BAG IV STA (20:38)
--- NOTE | 2021-06-15 20:43 | XRay Report ---
XR chest 1V portable HISTORY: 66 years-old Female Sepsis acute sepsis COMPARISON: Chest radiograph 05/03/2020 TECHNIQUE: Portable AP view of the chest FINDINGS: Cardiac silhouette is enlarged. Pulmonary vascular congestion with interstitial coarsening. No pneumo thorax, large pleural effusion or lobar airspace consolidation. Degenerative changes of the shoulders and spine. IMPRESSION: Cardiomegaly and pulmonary vascular congestion with interstitial coarsening which may be secondary to technique and patient body habitus versus pulmonary edema. ACT 112: Negative or not required by law. The above report was generated using voice recognition software. It may contain grammatical, syntax o r spelling errors. Electronically signed by: Chan Luther M.D. 06/15/2021 8:41 PM
[2021-06-15] MEDS ORDERED: ACETAMINOPHEN 325 MG TAB PO STA (21:16)
--- NOTE | 2021-06-15 21:35 | History & Physical Report ---
Date of Service June 15, 2021 Assessment & Plan (1) Bilateral lower extremity edema: Plan: Volume overload- cor pulmonale - Attempt diuresing with Bumex 2mg x1 now- repeat if effective and renal function allows - adjunctive diuretics following loop- consider metolazone in conjunction - If her HCO3 continues to increase - acetazolamide may assist - Follow renal function in the morning- If worsens with electrolytes increasing consult nephrology - Need to optimize and ensure use of her BiPAP as well - She recieved Rocephin and Vancomycin in the EMD- not convinced she needs agressive infectious treatment at this time - WBC normal and NLR is normal at 3:1 - compression, elevation, diurese (2) Dyspnea: Plan: As above - BiPAP/AutoPAP while in house close to support that she is on at home - Appreciate RT support (3) Acute on chronic renal failure: Plan: PETE stage II on CKD III - Will need to follow closely- however volume removal is imperative - HCO3 is 30 so is stable - K 5.4 and she is making urine so as we diurese this will come down - Follow Po4 and magnesium in the morning - nephrology consult if worsening renal function/lytes/HCO3 (4) Left knee DJD: Plan: post joint injections - continue tylenol- NO NSAIDS (5) CONSTANCE (obstructive sleep apnea): Plan: As above- BiPAP when napping and/or sleeping (6) Lumbar radicular pain: Plan: Chronic- continue with Tylenol - OOB as tolerated with feet elevated (7) COPD (chronic obstructive pulmonary disease): Plan: Obesity likely restrictive - continue albuterol - needs weight loss (8) Atrial fibrillation: Plan: In NSR s/p cardioversion metoprolol and her Amiodarone - Continue warfarin 5mg with daily INR - INR on admission 2.1 (9) Obesity due to excess calories: Plan: BMI 58- reported with weight gain of 20-30 pounds since April- no accurate idea of dry weight - Patient severely needs to lose weight - consider referral to 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 Patient referred from PCP office today for concerns of worsening lower extremity cellulitis of bilateral lower extremities. Patient was placed on Levofloxacin on 20August for possible cellulitis of her lower extremities, the patient has been sleeping in her recliner secondary to sciatic back pain and has also developed some small blisters on the her legs. The patient had routinely followed with the wound care clinic for lower extremity ulcers and was recently following them for heel wound on her left leg. She also follows with orthopaedics for knee injections last done in April 2021. For her HFpEF she follows with the heart failure clinic. Recently she has been noted to have 20-30 pound weight gain she was placed on Torsemide 40 mg BID and Spironolactone 25mg daily; this was noted to increase her renal indices, which continue to increase on today up to BUN 76 and POLICY CHANGE [employer]ER[employer] SUPERVISOR 3.34. Her diuretics were scaled back after her increase in renal function. In the EMD the patient had a CXR done and routine labs. She was given 1GM of Rocephin and 2.5 GM of Vancomycin. Her CXR was consistent with pulmonary vascular congestion. Her laboratory data revealed normal WBC with NLR of 3:1, INR of 2.1, K 5.4 and BUN of 76 with a POLIC[employer] CHANGE CLER[employer] SUPERVISOR of 3.34. Patient states that over the past month her legs have gotten more swollen starting at her ankles and proceeding up to her legs and now with her abdomen feeling enlarged. The redness and blisters started to increase shortly after that. She has not had any purulent drainage and unsure if she has had any fevers. Her blisters have been weeping clear serous fluid. Patient appears to be in volume overload at this time with poor response to outpatient diuretics. Will give 2mg IV Bumex now and follow volume status and renal function. Will hold on her antibiotics at this time. She states that she is compliant with her ASV (biPAP) at home. Allergies Allergy/AdvReac Type Severity Reaction Status Date / Time amoxicillin Allergy Severe SOB, RASH Verified 06/15/21 14:33 Penicillins Allergy Severe SOB, RASH Verified 06/15/21 14:33 clarithromycin Allergy Intermediate "feels Verified 06/15/21 14:33 like flying high" clindamycin Allergy Intermediate "feels Verified 06/15/21 14:33 like flying high" fluconazole Allergy Intermediate "feels Verified 06/15/21 14:33 like flying high" sulfamethoxazole Allergy Intermediate "feels Verified 06/15/21 14:33 like flying high" trimethoprim Allergy Intermediate "feels Verified 06/15/21 14:33 like flying high" Bactrim Allergy Unknown UNKNOWN Verified 02/21/18 10:32 codeine AdvReac Mild ITCHING, Verified 06/15/21 14:33 NAUSEA Home Medications Medication Instructions Recorded Confirmed Type meclizine 12.5 mg tablet 12.5 mg PO TID PRN 10 Days #30 tab 09/26/16 06/15/21 History multivitamin with folic acid 400 1 tab PO DAILY 03/31/20 06/15/21 History mcg tablet albuterol sulfate 90 mcg/actuation 2 puff INHALATION Q6H PRN #18 gm 10/26/20 06/15/21 Rx aerosol inhaler fluocinonide 0.05 % topical cream 1 applic TOPICAL BID #60 g 12/16/20 06/15/21 Rx nystatin 100,000 unit/gram topical 1 applic TOPICAL DAILY #60 g 01/10/21 06/15/21 Rx powder atorvastatin 40 mg tablet (Lipitor) 40 mg PO QAM #30 tab 01/28/21 06/15/21 Rx levothyroxine 50 mcg tablet 50 mcg PO DAILY #90 tab 02/01/21 06/15/21 Rx calcitriol 0.5 mcg capsule 0.5 mcg PO .3XW cap 03/03/21 06/15/21 History hydrocortisone 2.5 % topical cream 1 applic TOPICAL BID PRN g 03/03/21 06/15/21 History ezetimibe 10 mg tablet 10 mg PO QAM #90 tab 03/16/21 06/15/21 Rx ferrous sulfate 325 mg (65 mg 325 mg PO DAILY #90 tab 03/16/21 06/15/21 Rx iron) tablet insulin glargine 100 unit/mL 40 unit SQ BID #30 ml 03/30/21 06/15/21 Rx subcutaneous solution (Lantus U-100 Insulin) amlodipine 2.5 mg tablet 2.5 mg PO DAILY 04/07/21 06/15/21 History insulin aspart U-100 100 unit/mL See Rx Instructions SUBCUT DAILY 04/25/21 06/15/21 Rx subcutaneous solution (Novolog #30 ml U-100 Insulin aspart) metoprolol tartrate 50 mg tablet 50 mg PO BID #180 tab 04/25/21 06/15/21 Rx pantoprazole 40 mg tablet,delayed 40 mg PO DAILY #90 tab 05/02/21 06/15/21 Rx release (Protonix) magnesium chloride 64 mg 64 mg PO BID #60 tab 05/03/21 06/15/21 Rx (magnesium chloride) tablet,delayed release warfarin 5 mg tablet 5 mg PO DAILY tab 05/10/21 06/15/21 History torsemide 20 mg tablet 40 mg PO BID #120 tab 05/30/21 06/15/21 Rx nbaldjcwlkeg-dvsovkdc-bduzhq tablet 1 tab PO DAILY 05/31/21 06/15/21 History levofloxacin 750 mg tablet 750 mg PO Q48H #5 tab 06/10/21 06/15/21 Rx amiodarone 200 mg tablet 200 mg PO DAILY #30 tab 06/13/21 06/15/21 Rx Past Med/Surg History Medical History Acute kidney injury Acute kidney injury Atrial fibrillation Paroxysmal. Cardioversion x 2. follows with Dr. Rapp---on coumadin. Atrial flutter hx of Blunt trauma of face Chronic anticoagulation Chronic obstructive pulmonary disease inhaler prn Chronic pain of left knee DJD Degenerative disc disease Diabetes mellitus, type 2 Diabetic foot ulcer associated with type 2 diabetes mellitus Diastolic CHF Hyperkalemia Hyperlipidemia Hypertension Hypothyroidism Iron deficiency anemia Lumbar radicular pain Myofascial pain Nausea and vomiting after administration of anesthetic agent Obesity On anticoagulant therapy eliquis daily Osteoarthritis Secondary hyperparathyroidism of renal origin Spinal stenosis Spinal stenosis of lumbar region Stage 3b chronic kidney disease TIA (transient ischemic attack) (07/14/14) Venous stasis ulcer Surgical History History of cardioversion x2 History of carpal tunnel surgery of left wrist History of colonoscopy with polypectomy History of lumpectomy of right breast benign History of tooth extraction most teeth removed--full upper denture/partial lower History of total hysterectomy with bilateral salpingo-oophorectomy (BSO) Family History Sister Family history of reaction to anesthesia nausea/vomiting Hypothyroidism Father Family history of reaction to anesthesia nausea/vomiting Family hx colonic polyps Hypertension Mother Diabetes Hypertension Denies family history of Ovarian cancer Prostate cancer Myocardial infarction Breast cancer Colorectal cancer Social History Smoking Status: Former smoker Tobacco Type: Cigarettes Age Started Using Tobacco: 20; Age Quit Using Tobacco: 60; packs per day: 1; Years Smoked: 40; Cigarettes Per Day: 20; Number of Years Since Quit: 5; Second Hand Exposure: Yes; Hx Alcohol Use: No Hx Substance Use: No Preferred Language: Nigerien Communication Ability: Effective Hearing Ability: Normal 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 Required: No Beliefs That Will Affect Care: None marital status: Single Current Living Situation: Family current occupational status: retired Other Information That Helps Us Care for You: No Feels Safe at Home: Yes Safety Concerns: Feels Safe At This Time Dental Care, Regularly: No Physical Activity Frequency: Does not Exercise Seatbelt Use: always Assistive Devices: CPAP, Denture - Upper, Denture - Lower, Glasses, Oxygen - at Night and Walker Review of Systems Review of Systems: REVIEW OF SYSTEMS: Constitutional: No fever, sweats or chills Eyes: No diplopia, no worsening or blurred vision ENT: normal hearing, no trouble swallowing Respiratory: (+) dyspnea on oxygen, No cough, sputum, dyspnea on exertion Cardiovascular: No chest pain, tightness or palpitations Abdomen: (+) abdominal fullness No pain, nausea, vomiting, diarrhea or constipation Musculoskeletal: (+) back pain, No joint pain, calf pain, swelling Neurologic: No weakness, numbness/tingling, or balance problems Psychiatric: No anxiety or depression Skin: No rash or itch Physical Exam Physical Exam: PHYSICAL EXAM: General: awake, alert, no apparent distress Head: Normocephalic, atraumatic ENT: PERRL, EOMI, no pharyngeal exudate, mucous membranes moist Neuro: AAO x 3, speech clear and appropriate, strength intact bilaterally 5/5, sensation intact and equal all extremities and dermatomes, no pronator drift Chest: equal rise and fall of the chest, no accessory muscle use, no heaves or thrills, lung sounds diminished secondary to body habitus- scattered crackles and wheezes throughout, on 2LNC Cardiac: Regular rate and rhythm, telemetry reviewed-NSR, skin warm dry, cap refill >3 seconds, peripheral pulses +2, JVD difficult to assess secondary to body habitus, no murmur, (+) 3 pitting edema up to mid thigh and into abdomen GI: NABS x 4 quadrants, soft, nontender to palpation, no rebound, guarding or tenderness : Spontaneously voiding, no pain, no CVA tenderness, Extremities: erythema, not warm or painful, vascular congestion and venous discoloration noted Psych: Normal mood and affect Skin: as above and per HPI Results & Data Results & Data ([facility]) Vital Signs (Past 12 Hours) Vital Signs Temp Pulse Pulse Resp BP BP Pulse Ox 06/15/21 20:21 63 23 165/83 H 92 06/15/21 16:40 36.6 C 76 18 126/49 L 88 L Laboratory Results Abnormal lab results 06/15/21 06/15/21 06/15/21 Range/Units 17:04 17:04 17:04 RBC 3.33 L (4.2-5.4) M/uL Hgb 10.1 L (12.0-16.0) g/dL Hct 33.8 L (37-47) % MCV 101.5 H (80-100) fL MCHC 29.9 L (32-36) g/dL RDW Std Deviation 58.4 H (36.4-46.3) fL RDW Coeff of Shannan 15.7 H (11.5-14.5) % [place] # (Auto) 0.70 H (0.11-0.59) K/uL Immature Gran # (Auto) 0.08 H (0.00-0.02) K/uL PT 20.5 H (9.0-12.0) Seconds INR 2.1 H (0.9-1.1) APTT 37.2 H (21.0-31.0) Seconds Potassium 5.4 H (3.5-5.1) mmol/L BUN 76 H (7-18) mg/dl Creatinine 3.34 H (0.6-1.2) mg/dl BUN/Creatinine Ratio 22.8 H (10-20) Glucose 132 H (70-99) mg/dl Magnesium 3.4 H (1.8-2.4) mg/dl AST 14 L (15-37) U/L Albumin 2.9 L (3.4-5.0) gm/dl Globulin 4.4 H (2.5-4.0) gm/dl Albumin/Globulin Ratio 0.7 L (0.9-2) Diagnostic Findings Chest X-Ray 06/15/21 16:47 XR chest 1V portable HISTORY: 66 years-old Female Sepsis acute sepsis COMPARISON: Chest radiograph 05/03/2020 TECHNIQUE: Portable AP view of the chest FINDINGS: Cardiac silhouette is enlarged. Pulmonary vascular congestion with interstitial coarsening. No pneumothorax, large pleural effusion or lobar airspace consolidation. Degenerative changes of the shoulders and spine. IMPRESSION: Cardiomegaly and pulmonary vascular congestion with interstitial coarsening which may be secondary to technique and patient body habitus versus pulmonary edema. ACT 112: Negative or not required by law. The above report was generated using voice recognition software. It may contain grammatical, syntax or spelling errors. Electronically signed by: Chan Luther M.D. 06/15/2021 8:41 PM Medications Administered Vancomycin HCl 2,500 mg/ (Sodium Chloride) 550 mls @ 200 mls/hr IV NOW ONE Stop: 06/15/21 23:22 Last Admin: 06/15/21 21:22 Dose: 200 mls/hr Documented by: [id number] Discontinued Medications Acetaminophen (Acetaminophen 325 Mg Tab) 650 mg PO NOW STA Stop: 06/15/21 21:17 Last Admin: 06/15/21 21:33 Dose: 650 mg Documented by: [id number] Ceftriaxone Sodium (Rocephin) 1,000 mg in 50 mls @ 100 mls/hr IV NOW STA Stop: 06/15/21 21:07 Last Infusion: 06/15/21 21:22 Dose: 0 mls/hr Documented by: [id number] Admin: 06/15/21 20:53 Dose: 100 mls/hr Documented by: [id number] ECG Additional Comments: Normal sinus rhythm Normal ECG When compared with ECG of 06-MAY-2020 07:49, QRS duration has increased ST no longer depressed in Inferior leads Code Status & VTE Plan Code Status CODE: FULL VTE: TEDS, Warfarin Supervising Physician Co-Signing Physician Notes Patient seen and examined, chart reviewed, case discussed with NATALIE Headley and I agree with his assessment and plan as documented above. In brief, patient is a 66-year-old female with multiple medical problems presenting with volume overloadworsening bilateral lower extremity edema as well as weeping wound on the right lower extremity. Also endorses dyspnea. Patient had been on Levaquin outpatient due to concern for cellulitis. She states that the redness of her legs has gotten worse as they have become more swollen. On exam she is afebrile, hypertensive, no acute distress Morbidly obese, sitting at edge of the bed Fluid-filled blister noted on right lower extremity, dusky redness of bilateral lower extremities right more than left. No crepitus/bulla/lymphangitic streaking Normocephalic/atraumatic Heart + S1, S2, regular, no murmur/rub/gallops Lungsdiminished breath sounds, positive crackles in bilateral lower lung bacon with scattered end expiratory wheezing Extremities3+ pitting edema into the sacrum and abdomen Labs and images reviewed Assessment/planpatient with significant volume overload requiring aggressive diuresis with caution to renal function Bumex IV administered. Will monitor output and redose if appropriate. Closely monitor renal function and electrolytes Monitor right lower extremity redness. At this point seems like it may be more secondary to edema and venous stasis changes rather than cellulitis Remainder of plan per note above PG Care Time/CCT Total # of Minutes Spent Total Time Spent with Patient: Total time spent is greater than 50% in coordination of care (as documented) at patient's floor/unit and/or counseling patient: Coding Level of Care Code 11107 Initial Inpt Care Lvl 3 Diagnoses Bilateral lower extremity edema R60.0 Dyspnea R06.00 Left knee DJD M17.12 CONSTANCE (obstructive sleep apnea) G47.33 Acute on chronic renal failure N17.9; N18.3 Acute renal failure type: unspecified Chronic kidney disease stage: stage 3 (moderate) Lumbar radicular pain M54.16 COPD (chronic obstructive pulmonary disease) J44.9 Atrial fibrillation I48.91 Obesity due to excess calories E66.09 (1) Acute on chronic renal failure Acute renal failure type: unspecified Chronic kidney disease stage: stage 3 (moderate) Qualified Code(s): N17.9 - Acute kidney failure, unspecified; N18.3 - Chronic kidney disease, stage 3 (moderate)
[2021-06-15] MEDS ORDERED: BUMETANIDE 2 MG in SYRINGE 0 ML IV STA (21:52)
[2021-06-15 22:43] LABS: Appearance Urine Clear (Clear); Bilirubin Urine Negative (Negative); Blood Urine Negative (Negative); Color Urine Yellow; Glucose Urine UA Negative (Negative); Ketones Urine Negative (Negative); Leukocyte Esterase Urine Negative (Negative); Nitrite Urine Negative (Negative); Protein Urine Negative (Negative); Specific Gravity Urine 1.012 (1.000-1.030); Urobilinogen Urine Negative (Negative)
--- NOTE | 2021-06-15 22:47 | Emergency Department Note ---
Impression & Plan Cellulitis, Acute on chronic renal failure, Hyperkalemia ED Provider Note INFORMANT: Patient ED PROVIDER(S): Jim Acuña MD CHIEF COMPLAINT: Cellulitis PLAN: Disposition: Admitted Condition: Good Outpatient prescription management: none Referral: None MEDICAL DECISION MAKING: Patient presented because of worsening swelling and redness in her legs. She has a history of cellulitis. She was on antibiotics for the same. Unfortunately they were not working. The patient had blood work obtained. Her CBC showed a mild leukocytosis. The patient's chemistry panel revealed a slig htly worsening renal function and slightly elevated potassium. Her ECG did not show any acute findings. Her INR was therapeutic. Chest x-ray shows some mild congestive change. The patient was doing well on supplemental oxygen. She was given a dose of IV Rocephin and IV vancomycin after blood cultures. Consultation was placed with Dr. Martines of the [facility] service. Patient was evaluated in the ER for further management. Triage Nursing notes reviewed and agree them. Vital Signs: reviewed and remarkable for mild hypoxia Differential diagnosis: Cellulitis, abscess, MRSA infection, DVT, necrotizing fasciitis, dermatitis, drug eruption, allergic reaction, CHF, DVT, as well as other pathologies. Diagnostics interpreted by me: ECG: Twelve-lead ECG reveals a normal sinus rhythm at [address] elevation or depression. No PACs or PVCs. Normal axis. Normal QRS. Cardiac Monitoring: Cardiac monitoring ordered by me: The patient was placed on continuous cardiac monitoring and observed. It revealed a normal sinus rhythm at 66 beats per minute without ectopy or evidence of dysrhythmia. Imaging studies: Chest x-ray as noted below. I refer you to the EMR for further details. HPI: The patient is a 66 year old female who presents to the Emergency Room with complaints of cellulitis. This started about 2 to 3 weeks ago and is worsening. The patient also notes the following associated symptoms, swelling pain, and weeping of the legs. Patient has some shortness of breath but is chronically on oxygen. She has a history of CHF. The patient has been prescribed Levaquin by her primary physician but unfortunately it is not working for relieving factors. Current pain is rated as 2/10. Pt denies LOC, headache, fevers, chills, diaphoresis, visual changes, neck pain, chest pain, nausea, vomiting, abdominal pain, back pain, melena, hematochezia, urinary symptoms, numbness, weakness, lymphadenopathy, or other complaints. ROS: See above HPI for pertinent positives & negatives. A total of 10 systems reviewed and were otherwise negative. PAST MEDICAL HISTORY:See Below , diabetes, atrial fibrillation, cellulitis, PAST SURGICAL HISTORY:See Below, FAMILY HISTORY:See Below SOCIAL HISTORY:See Below, non-smoker HOME MEDICATIONS:See Below ALLERGIES:See Below VITALS:See Below PHYSICAL EXAMINATION: GENERAL: Awake, alert, mildly uncomfortable-appearing, in no distress HENT: Normocephalic, atraumatic. Oropharynx unremarkable. EYES: Normal conjunctiva. Sclera non-icteric. NECK: Inspection normal. Non-tender. Supple. No nuchal rigidity. FROM. No masses. RESPIRATORY: Clear to auscultation. No wheezes. No rales. Normal respiratory effort. CARDIAC: Normal rate. Normal rhythm. No murmurs. No rubs. Extremities warm and well perfused. Pulses equal. No JVD. GI: Soft, non-distended. No tenderness to palpation. No rebound or guarding. No masses. RECTAL: Deferred. MUSCULOSKELETAL: Atraumatic. Chest examination reveals no tenderness. The back is symmetrical on inspection without obvious abnormality. There is no CVA tenderness to palpation. No joint edema. LOWER EXTREMITIES: Calves are equal size bilaterally but mild non-tender. 3+ edema. Marked erythematous discoloration which is much worse on the right. Wa rm to the touch. NEURO: Normal sensorium. No sensory or motor deficits noted. SKIN: No rash or jaundice noted. Jim Acuña MD Past Med/Surg History Medical History Acute kidney injury Acute kidney injury Atrial fibrillation Paroxysmal. Cardioversion x 2. follows with Dr. Rapp---on coumadin. Atrial flutter hx of Blunt trauma of face Chronic anticoagulation Chronic obstructive pulmonary disease inhaler prn Chronic pain of left knee DJD Degenerative disc disease Diabetes mellitus, type 2 Diabetic foot ulcer associated with type 2 diabetes mellitus Diastolic CHF Hyperkalemia Hyperlipidemia Hypertension Hypothyroidism Iron deficiency anemia Lumbar radicular pain Myofascial pain Nausea and vomiting after administration of anesthetic agent Obesity On anticoagulant therapy eliquis daily Osteoarthritis Secondary hyperparathyroidism of renal origin Spinal stenosis Spinal stenosis of lumbar region Stage 3b chronic kidney disease TIA (transient ischemic attack) (07/14/14) Venous stasis ulcer Surgical History History of cardioversion x2 History of carpal tunnel surgery of left wrist History of colonoscopy with polypectomy History of lumpectomy of right breast benign History of tooth extraction most teeth removed--full upper denture/partial lower History of total hysterectomy with bilateral salpingo-oophorectomy (BSO) Family History Sister Family history of reaction to anesthesia nausea/vomiting Hypothyroidism Father Family history of reaction to anesthesia nausea/vomiting Family hx colonic polyps Hypertension Mother Diabetes Hypertension Denies family history of Ovarian cancer Prostate cancer Myocardial infarction Breast cancer Colorectal cancer Social History Smoking Status: Never smoker Tobacco Type: Cigarettes Age Started Using Tobacco: 20; Age Quit Using Tobacco: 60; packs per day: 1; Years Smoked: 40; Cigarettes Per Day: 20; Number of Years Since Quit: 5; Second Hand Exposure: Yes; Hx Alcohol Use: Yes Alcohol type: beer and wine Alcohol Intake Frequency: Monthly or Less Hx Substance Use: No Preferred Language: German Communication Ability: Effective Hearing Ability: Normal 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 Beliefs That Will Affect Care: None marital status: Single Current Living Situation: Family current occupational status: retired Feels Safe at Home: Yes Dental Care, Regularly: No Physical Activity Frequency: Does not Exercise Seatbelt Use: always Assistive Devices: Walker Allergies Allergies Allergy/AdvReac Type Severity Reaction Status Date / Time amoxicillin Allergy Severe SOB, RASH Verified 06/15/21 14:33 Penicillins Allergy Severe SOB, RASH Verified 06/15/21 14:33 clarithromycin Allergy Intermediate "feels Verified 06/15/21 14:33 like flying high" clindamycin Allergy Intermediate "feels Verified 06/15/21 14:33 like flying high" fluconazole Allergy Intermediate "feels Verified 06/15/21 14:33 like flying high" sulfamethoxazole Allergy Intermediate "feels Verified 06/15/21 14:33 like flying high" trimethoprim Allergy Intermediate "feels Verified 06/15/21 14:33 like flying high" Bactrim Allergy Unknown UNKNOWN Verified 02/21/18 10:32 codeine AdvReac Mild ITCHING, Verified 06/15/21 14:33 NAUSEA Home Meds Home Medications Medication Instructions Recorded Confirmed meclizine 12.5 mg tablet 12.5 mg PO TID PRN 10 Days #30 tab 09/26/16 06/15/21 multivitamin with folic acid 400 1 tab PO DAILY 03/31/20 06/15/21 mcg tablet calcitriol 0.5 mcg capsule 0.5 mcg PO .COMPLEX cap 03/03/21 06/15/21 hydrocortisone 2.5 % topical cream 1 applic TOPICAL BID PRN g 03/03/21 06/15/21 amlodipine 2.5 mg tablet 2.5 mg PO DAILY 04/07/21 06/15/21 warfarin 5 mg tablet 5 mg PO DAILY tab 05/10/21 06/15/21 aspirin 81 mg chewable tablet 81 mg PO DAILY 05/31/21 06/15/21 [id number]-cxujerqz-dnbhzf tablet 1 tab PO DAILY 05/31/21 06/15/21 Previous Rx's Medication Instructions Recorded albuterol sulfate 90 mcg/actuation 2 puff INHALATION Q6H PRN #18 gm 10/26/20 aerosol inhaler insulin syringe-needle U-100 1 mL #200 ea 11/04/20 31 gauge x 5/16" (BD Insulin Syringe Ultra-Fine) OneTouch Ultra Blue Test Strip #500 ea NS 12/10/20 (blood sugar diagnostic) fluocinonide 0.05 % topical cream 1 applic TOPICAL BID #60 g 12/16/20 nystatin 100,000 unit/gram topical 1 applic TOPICAL DAILY #60 g 01/10/21 powder atorvastatin 40 mg tablet (Lipitor) 40 mg PO QAM #30 tab 01/28/21 levothyroxine 50 mcg tablet 50 mcg PO DAILY #90 tab 02/01/21 ezetimibe 10 mg tablet 10 mg PO QAM #90 tab 03/16/21 ferrous sulfate 325 mg (65 mg 325 mg PO DAILY #90 tab 03/16/21 iron) tablet insulin glargine 100 unit/mL 40 unit SQ BID #30 ml 03/30/21 subcutaneous solution (Lantus U-100 Insulin) insulin aspart U-100 100 unit/mL See Rx Instructions SUBCUT DAILY 04/25/21 subcutaneous solution (Novolog #30 ml U-100 Insulin aspart) metoprolol tartrate 50 mg tablet 50 mg PO BID #180 tab 04/25/21 pantoprazole 40 mg tablet,delayed 40 mg PO DAILY #90 tab 05/02/21 release (Protonix) magnesium chloride 64 mg 64 mg PO BID #60 tab 05/03/21 (magnesium chloride) tablet,delayed release torsemide 20 mg tablet 40 mg PO BID #120 tab 05/30/21 levofloxacin 750 mg tablet 750 mg PO Q48H #5 tab 06/10/21 amiodarone 200 mg tablet 200 mg PO DAILY #30 tab 06/13/21 Results & Data (ED) Vital Signs Vital Signs - 24 hr 06/15/21 16:40 06/15/21 17:10 06/15/21 20:21 Temperature 36.6 C Temperature Source Oral Pulse Rate 76 Pulse Rate [Apical] 63 Pulse Rhythm [Apical] Regular Respiratory Rate 18 23 Respiratory Effort / Characteristics Non-Labored Respiratory Depth Normal Normal Blood Pressure 126/49 L Blood Pressure [Left Arm] 165/83 H Blood Pressure Mean 74 Blood Pressure Mean [Left Arm] 110 Pulse Oximetry 88 L 92 Oxygen Delivery Method Room Air Nasal Cannula Nasal Cannula Oxygen Flow Rate 2 2 Sepsis Recent Fever Within 48 Hours No Sepsis New/Unexplained Change in Mental Status No Sepsis Action Taken by Nursing No Action Required 06/15/21 22:40 Temperature Temperature Source Pulse Rate Pulse Rate [Apical] 66 Pulse Rhythm [Apical] Regular Respiratory Rate 24 Respiratory Effort / Characteristics Non-Labored Respiratory Depth Blood Pressure Blood Pressure [Left Arm] 165/84 H Blood Pressure Mean Blood Pressure Mean [Left Arm] 111 Pulse Oximetry 95 Oxygen Delivery Method Nasal Cannula Oxygen Flow Rate 2 Sepsis Recent Fever Within 48 Hours Sepsis New/Unexplained Change in Mental Status Sepsis Action Taken by Nursing Laboratory Data Result diagrams: 06/15/21 17:04 06/15/21 17:04 Lab Results 06/15/21 06/15/21 06/15/21 Range/Units 17:04 17:04 17:04 WBC 8.42 (4.8-10.8) K/uL RBC 3.33 L (4.2-5.4) M/uL Hgb 10.1 L (12.0-16.0) g/dL Hct 33.8 L (37-47) % MCV 101.5 H (80-100) fL MCH 30.3 (25-34) pg MCHC 29.9 L (32-36) g/dL RDW Std Deviation 58.4 H (36.4-46.3) fL RDW Coeff of Shannan 15.7 H (11.5-14.5) % Plt Count 341 (130-400) K/uL MPV 9.3 (7.4-10.4) fL Immature Gran % (Auto) 1.0 % Neut % (Auto) 73.8 % Lymph % (Auto) 15.1 % [place] % (Auto) 8.3 % Eos % (Auto) 1.7 % Baso % (Auto) 0.1 % Neut # (Auto) 6.22 (1.4-6.5) K/uL Lymph # (Auto) 1.27 (1.2-3.4) K/uL [place]corn # (Auto) 0.70 H (0.11-0.59) K/uL Eos # (Auto) 0.14 (0-0.5) K/uL Baso # (Auto) 0.01 (0-0.2) K/uL Immature Gran # (Auto) 0.08 H (0.00-0.02) K/uL PT 20.5 H (9.0-12.0) Seconds INR 2.1 H (0.9-1.1) APTT 37.2 H (21.0-31.0) Seconds PTT Ratio 1.4 Sodium 137 (136-145) mmol/L Potassium 5.4 H (3.5-5.1) mmol/L Chloride 100 (98-107) mmol/L Carbon Dioxide 30 (21-32) mmol/L Anion Gap 7.0 (3-11) BUN 76 H (7-18) mg/dl Creatinine 3.34 H (0.6-1.2) mg/dl Est Cr Clr Drug Dosing 25.6 ml/min Est GFR ( Amer) 15.8 ml/min Est GFR (Non-Af Amer) 13.7 ml/min BUN/Creatinine Ratio 22.8 H (10-20) Glucose 132 H (70-99) mg/dl Calcium 8.5 (8.5-10.1) mg/dl Magnesium 3.4 H (1.8-2.4) mg/dl Total Bilirubin 0.3 (0.2-1) mg/dl AST 14 L (15-37) U/L ALT 14 (12-78) U/L Alkaline Phosphatase 89 (45-117) U/L Troponin I < 0.015 (0-0.045) ng/ml NT-Pro-B Natriuret Pep (0-900) pg/ml Total Protein 7.3 (6.4-8.2) gm/dl Albumin 2.9 L (3.4-5.0) gm/dl Globulin 4.4 H (2.5-4.0) gm/dl Albumin/Globulin Ratio 0.7 L (0.9-2) Urine Color Urine Appearance (Clear) Urine pH (4.5-7.5) Ur Specific [place] (1.000-1.030) Urine Protein (Negative) Urine Glucose (UA) (Negative) Urine Ketones (Negative) Urine Blood (Negative) Urine Nitrite (Negative) Urine Bilirubin (Negative) Urine Urobilinogen (Negative) Ur Leukocyte Esterase (Negative) COVID-19 Eval Order SARS-CoV-2 (PCR) (Negative) 06/15/21 06/15/21 06/15/21 Range/Units 17:04 21:04 21:04 WBC (4.8-10.8) K/uL RBC (4.2-5.4) M/uL Hgb (12.0-16.0) g/dL Hct (37-47) % MCV (80-100) fL MCH (25-34) pg MCHC (32-36) g/dL RDW Std Deviation (36.4-46.3) fL RDW Coeff of Shannan (11.5-14.5) % Plt Count (130-400) K/uL MPV (7.4-10.4) fL Immature Gran % (Auto) % Neut % (Auto) % Lymph % (Auto) % [place] % (Auto) % Eos % (Auto) % Baso % (Auto) % Neut # (Auto) (1.4-6.5) K/uL Lymph # (Auto) (1.2-3.4) K/uL [place] # (Auto) (0.11-0.59) K/uL Eos # (Auto) (0-0.5) K/uL Baso # (Auto) (0-0.2) K/uL Immature Gran # (Auto) (0.00-0.02) K/uL PT (9.0-12.0) Seconds INR (0.9-1.1) APTT (21.0-31.0) Seconds PTT Ratio Sodium (136-145) mmol/L Potassium (3.5-5.1) mmol/L Chloride (98-107) mmol/L Carbon Dioxide (21-32) mmol/L Anion Gap (3-11) BUN (7-18) mg/dl Creatinine (0.6-1.2) mg/dl Est Cr Clr Drug Dosing ml/min Est GFR ( Amer) ml/min Est GFR (Non-Af Amer) ml/min BUN/Creatinine Ratio (10-20) Glucose (70-99) mg/dl Calcium (8.5-10.1) mg/dl Magnesium (1.8-2.4) mg/dl Total Bilirubin (0.2-1) mg/dl AST (15-37) U/L ALT (12-78) U/L Alkaline Phosphatase (45-117) U/L Troponin I (0-0.045) ng/ml NT-Pro-B Natriuret Pep 333 (0-900) pg/ml Total Protein (6.4-8.2) gm/dl Albumin (3.4-5.0) gm/dl Globulin (2.5-4.0) gm/dl Albumin/Globulin Ratio (0.9-2) Urine Color Urine Appearance (Clear) Urine pH (4.5-7.5) Ur Specific [place] (1.000-1.030) Urine Protein (Negative) Urine Glucose (UA) (Negative) Urine Ketones (Negative) Urine Blood (Negative) Urine Nitrite (Negative) Urine Bilirubin (Negative) Urine Urobilinogen (Negative) Ur Leukocyte Esterase (Negative) COVID-19 Eval Order Covid19 at [facility] SARS-CoV-2 (PCR) NEGATIVE (Negative) 06/15/21 Range/Units 21:20 WBC (4.8-10.8) K/uL RBC (4.2-5.4) M/uL Hgb (12.0-16.0) g/dL Hct (37-47) % MCV (80-100) fL MCH (25-34) pg MCHC (32-36) g/dL RDW Std Deviation (36.4-46.3) fL RDW Coeff of Shannan (11.5-14.5) % Plt Count (130-400) K/uL MPV (7.4-10.4) fL Immature Gran % (Auto) % Neut % (Auto) % Lymph % (Auto) % [place] % (Auto) % Eos % (Auto) % Baso % (Auto) % Neut # (Auto) (1.4-6.5) K/uL Lymph # (Auto) (1.2-3.4) K/uL [place] # (Auto) (0.11-0.59) K/uL Eos # (Auto) (0-0.5) K/uL Baso # (Auto) (0-0.2) K/uL Immature Gran # (Auto) (0.00-0.02) K/uL PT (9.0-12.0) Seconds INR (0.9-1.1) APTT (21.0-31.0) Seconds PTT Ratio Sodium (136-145) mmol/L Potassium (3.5-5.1) mmol/L Chloride (98-107) mmol/L Carbon Dioxide (21-32) mmol/L Anion Gap (3-11) BUN (7-18) mg/dl Creatinine (0.6-1.2) mg/dl Est Cr Clr Drug Dosing ml/min Est GFR ( Amer) ml/min Est GFR (Non-Af Amer) ml/min BUN/Creatinine Ratio (10-20) Glucose (70-99) mg/dl Calcium (8.5-10.1) mg/dl Magnesium (1.8-2.4) mg/dl Total Bilirubin (0.2-1) mg/dl AST (15-37) U/L ALT (12-78) U/L Alkaline Phosphatase (45-117) U/L Troponin I (0-0.045) ng/ml NT-Pro-B Natriuret Pep (0-900) pg/ml Total Protein (6.4-8.2) gm/dl Albumin (3.4-5.0) gm/dl Globulin (2.5-4.0) gm/dl Albumin/Globulin Ratio (0.9-2) Urine Color Yellow Urine Appearance Clear (Clear) Urine pH 6.0 (4.5-7.5) Ur Specific [place] 1.012 (1.000-1.030) Urine Protein Negative (Negative) Urine Glucose (UA) Negative (Negative) Urine Ketones Negative (Negative) Urine Blood Negative (Negative) Urine Nitrite Negative (Negative) Urine Bilirubin Negative (Negative) Urine Urobilinogen Negative (Negative) Ur Leukocyte Esterase Negative (Negative) COVID-19 Eval Order SARS-CoV-2 (PCR) (Negative) Administered Medications Vancomycin HCl 2,500 mg/ (Sodium Chloride) 550 mls @ 200 mls/hr IV NOW ONE Stop: 06/15/21 23:22 Last Admin: 06/15/21 21:22 Dose: 200 mls/hr Documented by: [id number] Discontinued Medications Acetaminophen (Acetaminophen 325 Mg Tab) 650 mg PO NOW STA Stop: 06/15/21 21:17 Last Admin: 06/15/21 21:33 Dose: 650 mg Documented by: [id number] Ceftriaxone Sodium (Rocephin) 1,000 mg in 50 mls @ 100 mls/hr IV NOW STA Stop: 06/15/21 21:07 Last Infusion: 06/15/21 21:22 Dose: 0 mls/hr Documented by: [id number] Admin: 06/15/21 20:53 Dose: 100 mls/hr Documented by: [id number] Bumetanide 2 mg/ Syringe 8 mls @ 4 mls/min IV ONE STA Stop: 06/15/21 21:53 Last Admin: 06/15/21 22:27 Dose: 4 mls/min Documented by: [id number] Imaging Data Radiologist's Impression: Chest X-Ray 06/15/21 16:47 XR chest 1V portable HISTORY: 66 years-old Female Sepsis acute sepsis COMPARISON: Chest radiograph 05/03/2020 TECHNIQUE: Portable AP view of the chest FINDINGS: Cardiac silhouette is enlarged. Pulmonary vascular congestion with interstitial coarsening. No pneumothorax, large pleural effusion or lobar airspace consolidation. Degenerative changes of the shoulders and spine. IMPRESSION: Cardiomegaly and pulmonary vascular congestion with interstitial coarsening which may be secondary to technique and patient body habitus versus pulmonary edema. ACT 112: Negative or not required by law. The above report was generated using voice recognition software. It may contain grammatical, syntax or spelling errors. Electronically signed by: Chan Luther M.D. 06/15/2021 8:41 PM Discharge Plan Visit Data Chief Complaint: Swelling/Edema to Extremity Stated Complaint: LEG PAIN ED Provider: Jim Acuña Discharge Problem: Cellulitis, Acute on chronic renal failure, Hyperkalemia Forms Stand Alone Forms: My [facility] [place] [employer] Prescriptions Prescriptions: No Action calcitriol 0.5 mcg capsule 0.5 mcg PO .COMPLEX RF: 0 hydrocortisone 2.5 % cream 1 applic topical BID PRNRF: 0 meclizine 12.5 mg Tablet 12.5 mg PO TID PRN (Reason: Dizziness) 10 Days Qty: 30 RF: 0 albuterol sulfate 90 mcg/actuation HFA aerosol inhaler 2 puff INHALATION Q6H PRN (Reason: Shortness Of Breath) Qty: 18 RF: 5 (DME) insulin syringe-needle U-100 [BD Insulin Syringe Ultra-Fine] 1 mL 31 gauge x 5/16 syringe See Rx Instructions [id number] .MEDSUPPLY Qty: 200 RF: 5 (DME) OneTouch Ultra Blue Test Strip Strip See Dose Instructions .ROUTE .MEDSUPPLY Qty: 500 RF: 1 fluocinonide 0.05 % cream 1 applic topical BID Qty: 60 RF: 1 atorvastatin [Lipitor] 40 mg tablet 40 mg PO QAM Qty: 30 RF: 5 levothyroxine 50 mcg tablet 50 mcg PO DAILY Qty: 90 RF: 3 ezetimibe 10 mg tablet 10 mg PO QAM Qty: 90 RF: 3 ferrous sulfate 325 mg (65 mg iron) tablet 325 mg PO DAILY Qty: 90 RF: 3 Lantus U-100 Insulin 100 unit/mL solution 40 unit SQ BID Qty: 30 RF: 5 metoprolol tartrate 50 mg tablet 50 mg PO BID Qty: 180 RF: 3 insulin aspart U-100 [Novolog U-100 Insulin aspart] 100 unit/mL solution See Rx Instructions subcut DAILY Qty: 30 RF: 5 pantoprazole [Protonix] 40 mg tablet,delayed release (DR/EC) 40 mg PO DAILY Qty: 90 RF: 3 magnesium chloride 64 mg tablet,delayed release (DR/EC) 64 mg PO BID Qty: 60 RF: 5 torsemide 20 mg tablet 40 mg PO BID Qty: 120 RF: 11 levofloxacin 750 mg tablet 750 mg PO Q48H Qty: 5 RF: 0 amiodarone 200 mg tablet 200 mg PO DAILY Qty: 30 RF: 5 warfarin 5 mg tablet 5 mg PO DAILY RF: 0 amlodipine 2.5 mg tablet 2.5 mg PO DAILY RF: 0 nystatin 100,000 unit/gram powder 1 applic topical DAILY Qty: 60 RF: 1 [id number]-rzresjlw-jtyotq Tablet 1 tab PO DAILY RF: 0 aspirin 81 mg tablet,chewable 81 mg PO DAILY RF: 0 multivitamin with folic acid 400 mcg Tablet 1 tab PO DAILY RF: 0 Referrals Referrals: Jimbo Srivastava III, MD [Primary Care Provider] -
[2021-06-16] MEDS ORDERED: CARBOHYDRATES FOR HYPOGLYCEMIA PO PRN (01:53)
[2021-06-16] MEDS ORDERED: GLUCAGON FOR INJ 1 MG VIAL SQ PRN (01:53)
[2021-06-16] MEDS ORDERED: GLUCOSE 40% GEL 15 GM TUBE PO PRN (01:53)
[2021-06-16] MEDS ORDERED: ALBUTEROL HFA 8 GM INHALER INH PRN (01:53)
[2021-06-16] MEDS ORDERED: GLUCOSE 10 TABS/TUBE PO PRN (01:53)
[2021-06-16] MEDS ORDERED: DEXTROSE 50% 50 ML SYRINGE IV PRN (01:53)
[2021-06-16] MEDS ORDERED: ACETAMINOPHEN 325 MG TAB ONE (05:21)
[2021-06-16] MEDS: ACETAMINOPHEN 325 MG TAB PO PRN (05:25)
[2021-06-16 06:24] LABS: Basophils # (auto) 0.02 K/uL (0-0.2); Basophils % (auto) 0.2 %; Eosinophils # (auto) 0.18 K/uL (0-0.5); Eosinophils % (auto) 2.2 %; Hematocrit (blood only) 33.9 % (37-47); Hemoglobin 10.3 g/dL (12.0-16.0); Immature Granulocytes # (auto) 0.05 K/uL (0.00-0.02); Immature Granulocytes % (auto) 0.6 %; Lymphocytes % (auto) 15.8 %; Mean Corpuscular Hemoglobin 30.4 pg (25-34); Mean Corpuscular Hgb Conc 30.4 g/dL (32-36); Mean Platelet Volume 9.4 fL (7.4-10.4); Monocytes # (auto) 0.88 K/uL (0.11-0.59); Monocytes % (auto) 10.7 %; Neutrophils # (auto) 5.81 K/uL (1.4-6.5); Neutrophils % (auto) 70.5 %; Platelet Count 317 K/uL (130-400); RDW Coefficient of Variation 15.8 % (11.5-14.5); RDW Standard Deviation 57.3 fL (36.4-46.3); Red Blood Count 3.39 M/uL (4.2-5.4); White Blood Count 8.24 K/uL (4.8-10.8)
[2021-06-16 06:43] LABS: Prothrombin Time 19.5 Seconds (9.0-12.0)
[2021-06-16 06:52] LABS: BUN Creatinine Ratio 23.2 (10-20); Calcium 8.7 mg/dl (8.5-10.1); Creatinine Clr Calc Pharmacy 28.3 ml/min; Est GFR (African American) 17.9 ml/min; Est GFR (Non-African American) 15.5 ml/min; Magnesium 3.1 mg/dl (1.8-2.4); Phosphorus 4.8 mg/dl (2.5-4.9); Potassium 4.8 mmol/L (3.5-5.1)
[2021-06-16] MEDS: amLODIPine BESYLATE 5 MG TAB PO SCH (09:24)
[2021-06-16] MEDS: AMIODARONE 200 MG TAB PO SCH (09:24)
[2021-06-16] MEDS: ASPIRIN 81 MG ECTAB PO SCH (09:24)
[2021-06-16] MEDS: ATORVASTATIN 40 MG TAB PO SCH (09:24)
[2021-06-16] MEDS: PANTOprazole 40 MG TAB PO SCH (09:25)
[2021-06-16] MEDS: INSULIN GLARGINE SOLOSTAR 100 UNITS/ML 3 ML PEN SQ SCH ×2 (09:25→21:11)
[2021-06-16] MEDS: METOPROLOL TARTRATE 50 MG TAB PO SCH ×2 (09:25→21:13)
[2021-06-16] MEDS: FLUOCINONIDE 0.05% CR 15 GM TUBE EXT SCH ×2 (09:25→21:12)
[2021-06-16] MEDS: EZETIMIBE 10 MG TABLET PO SCH (09:25)
[2021-06-16] MEDS: LEVOTHYROXINE SODIUM 50 MCG TABLET PO SCH (09:25)
[2021-06-16] MEDS: FERROUS SULFATE 325 MG TAB PO SCH (09:25)
[2021-06-16] MEDS: INSULIN ASPART 100 UNITS/ML 3 ML PEN SC SCH ×4 (09:26→21:11)
[2021-06-16] MEDS ORDERED: BUMETANIDE 2 MG in SYRINGE 0 ML IV ONE (10:00)
--- NOTE | 2021-06-16 10:35 | Hospitalist Progress Note ---
Date of Service June 16, 2021 Assessment & Plan (1) Bilateral lower extremity edema: Plan: Acute on chronic diastolic heart failure volume overload- cor pulmonale acute on chronic diastolic heart failure - Attempt diuresing with Bumex 2mg x IV twice daily cautiously may consider continuous drip if no improvement after 24 hours will consult nephrology who she is typically sees Dr. Cervantes -Watch for contraction alkalosis this is likely acute on chronic diastolic heart failure plus minus pulmonary pretension from obesity hypoventilation syndrome with cor pulmonale - - Need to optimize and ensure use of her BiPAP as well - She recieved Rocephin and Vancomycin in the EMD- not convinced she needs agressive infectious treatment at this time - WBC normal and NLR is normal at 3:1 - compression, elevation, diurese (2) Dyspnea: Plan: As above - BiPAP/AutoPAP while in house close to support that she is on at home - Appreciate RT support (3) Acute on chronic renal failure: Plan: PETE stage II on CKD III - Will need to follow closely- however volume removal is imperative - (4) Left knee DJD: Plan: post joint injections - continue tylenol- NO NSAIDS (5) CONSTANCE (obstructive sleep apnea): Plan: As above- BiPAP when napping and/or sleeping (6) Lumbar radicular pain: Plan: Chronic- continue with Tylenol -Adding low-dose oxycodone and morphine as needed (7) COPD (chronic obstructive pulmonary disease): Plan: Obesity likely restrictive - continue albuterol - needs weight loss (8) Atrial fibrillation: Plan: In NSR s/p cardioversion metoprolol and her Amiodarone - Continue warfarin 5mg with daily INR - INR on admission was therapeutic (9) Obesity due to excess calories: Plan: BMI 58- reported with weight gain of 20-30 pounds since April- no accurate idea of dry weight - Admission and Anticipated Discharge Date Admission Date: June 15, 2021 Subjective pt is mostly c/o sciatica pain to her left leg and discomfort from massive LE edema, was given some IV bumex on admission with minimal results Review of Systems Review of Systems: Mild distress and fatigue no headache, no visual changes no speech or swallowing issues no chest pain, pressure or palpitations Patient feels dyspneic no abdominal pain, nausea or vomiting, diarrhea or constipation no dysuria, hematuria or frequency -[place] male showing 2-3+ Left-sided radicular back pain, no CVA tenderness no bruising, bleeding does have stasis changes to her lower legs no focal signs of weakness or numbness or altered sensation no complaints of anxiety or depression.. Physical Exam Physical Exam: The patient appeared well nourished and normally developed. Patient is morbidly obese with a BMI of 58 Vital signs as documented. Head exam is normocephalic atraumatic Neck is difficult to assess for JVD, thyromegaly, or carotid bruits. Lungs are distant may be basilar crackles Cardiac exam, distant perhaps systolic murmur Abdominal exam reveals normal bowel sounds, soft non tender, no masses Extremities are 3+ edematous bilaterally and both lower extremities have venous stasis changes Neurologic exam is alert and oriented, no focal loss of strength or sensation Cannot assess straight leg raises due to the patient's body habitus and inability want to lay flat Psychologically is without concerns for anxiety or depression Results & Data Results & Data ([facility]) Vital Signs (Past 12 Hours) Vital Signs Temp Pulse Pulse Resp BP BP Pulse Ox 06/16/21 01:53 97.7 F 66 16 166/74 H 99 06/16/21 01:00 69 18 130/77 96 06/16/21 00:31 60 16 137/73 96 06/16/21 00:01 58 L 16 150/75 H 100 06/15/21 23:40 72 24 125/90 97 06/15/21 22:40 66 24 165/84 H 95 PG Care Time/CCT Total # of Minutes Spent Total Time Spent with Patient: Total time spent is greater than 50% in coordination of care (as documented) at patient's floor/unit and/or counseling patient: Coding Level of Care Code 45065 Subseq Hosp Care Lvl 3 Diagnoses Bilateral lower extremity edema R60.0 Dyspnea R06.00 Acute on chronic renal failure N17.9; N18.9 Left knee DJD M17.12 CONSTANCE (obstructive sleep apnea) G47.33 Lumbar radicular pain M54.16 COPD (chronic obstructive pulmonary disease) J44.9 Atrial fibrillation I48.91 Obesity due to excess calories E66.09
[2021-06-16] MEDS: WARFARIN SOD 5 MG TAB PO SCH (17:34)
[2021-06-16] MEDS ORDERED: MoRPHine SULFATE 2 MG/ML CARP IV PRN (17:56)
[2021-06-16] MEDS ORDERED: oxyCODONE HCL IR 5 MG TAB (IMMEDIATE RELEASE) PO PRN (17:56)
[2021-06-16] MEDS: BUMETANIDE 2 MG in SYRINGE 0 ML IV SCH (18:17)
[2021-06-17] MEDS ORDERED: MICONAZOLE NITRATE POWDER 43 GM EXT PRN (03:49)
[2021-06-17] MEDS: ACETAMINOPHEN 325 MG TAB PO PRN ×2 (05:16→15:41)
[2021-06-17 05:55] LABS: INR 2.1 (0.9-1.1); Prothrombin Time 20.3 Seconds (9.0-12.0)
[2021-06-17 06:14] LABS: BUN Creatinine Ratio 23.2 (10-20); Calcium 8.8 mg/dl (8.5-10.1); Creatinine Clr Calc Pharmacy 29.1 ml/min; Est GFR (African American) 18.6 ml/min; Est GFR (Non-African American) 16.1 ml/min; Magnesium 3.1 mg/dl (1.8-2.4); Phosphorus 4.6 mg/dl (2.5-4.9); Potassium 5.1 mmol/L (3.5-5.1)
[2021-06-17] MEDS: LEVOTHYROXINE SODIUM 50 MCG TABLET PO SCH (06:41)
[2021-06-17 07:05] LABS: ALC (manual) 1.03 K/uL (1.2-3.4); ANC (manual) 5.22 K/uL (1.4-6.5); Basophils # (manual) 0.13 K/uL (0-0.2); Basophils % (manual) 1.8 %; Eosinophils # (manual) 0.26 K/uL (0-0.5); Eosinophils % (manual) 3.5 %; Hematocrit (blood only) 35.1 % (37-47); Hemoglobin 10.5 g/dL (12.0-16.0); Lymphocytes # (manual) 1.03 K/uL (1.2-3.4); Mean Corpuscular Hemoglobin 30.8 pg (25-34); Mean Corpuscular Hgb Conc 29.9 g/dL (32-36); Mean Corpuscular Volume 102.9 fL (80-100); Mean Platelet Volume 9.5 fL (7.4-10.4); Monocytes % (manual) 9.6 %; Neutrophils # (manual) 5.22 K/uL (1.4-6.5); Neutrophils % (manual) 71.1 %; Platelet Count 351 K/uL (130-400); RDW Coefficient of Variation 15.6 % (11.5-14.5); RDW Standard Deviation 59.3 fL (36.4-46.3); Red Blood Count 3.41 M/uL (4.2-5.4); Rouleaux 1+; White Blood Count 7.34 K/uL (4.8-10.8)
[2021-06-17] MEDS: INSULIN ASPART 100 UNITS/ML 3 ML PEN SC SCH ×4 (10:04→21:54)
[2021-06-17] MEDS: INSULIN GLARGINE SOLOSTAR 100 UNITS/ML 3 ML PEN SQ SCH ×2 (10:05→21:52)
[2021-06-17] MEDS: AMIODARONE 200 MG TAB PO SCH (10:07)
[2021-06-17] MEDS: ATORVASTATIN 40 MG TAB PO SCH (10:09)
[2021-06-17] MEDS: amLODIPine BESYLATE 5 MG TAB PO SCH (10:09)
[2021-06-17] MEDS: ASPIRIN 81 MG ECTAB PO SCH (10:09)
[2021-06-17] MEDS: BUMETANIDE 2 MG in SYRINGE 0 ML IV SCH (10:10)
[2021-06-17] MEDS: CALCITRIOL 0.25 MCG CAPSULE PO SCH (10:11)
[2021-06-17] MEDS: EZETIMIBE 10 MG TABLET PO SCH (10:11)
[2021-06-17] MEDS: FERROUS SULFATE 325 MG TAB PO SCH (10:11)
[2021-06-17] MEDS: PANTOprazole 40 MG TAB PO SCH (10:12)
[2021-06-17] MEDS: METOPROLOL TARTRATE 50 MG TAB PO SCH ×2 (10:12→21:55)
[2021-06-17] MEDS: FLUOCINONIDE 0.05% CR 15 GM TUBE EXT SCH ×2 (10:15→21:54)
[2021-06-17] MEDS: WARFARIN SOD 5 MG TAB PO SCH (15:42)
[2021-06-17] MEDS: FUROSEMIDE 100 MG in DEXTROSE 5% 90 ML IV SCH (15:53)
--- NOTE | 2021-06-17 16:11 | Heart Failure Consultation ---
Date of Consultation June 17, 2021 Assessment & Plan (1) Acute on chronic diastolic (congestive) heart failure: (2) Obesity due to excess calories: (3) Acute kidney injury: (4) Atrial fibrillation: (5) CONSTANCE (obstructive sleep apnea): (6) Venous insufficiency of both lower extremities: (7) COPD (chronic obstructive pulmonary disease): Chronic diastolic congestive heart failure: Patient appears hypervolemic on exam but has a difficult exam due to her body habitus. She is requiring some additional O2 but her biggest issue is her lower extremities. Her symptoms are likely multifactorial- she also has chronic venous insufficiency/lymphedema and OHS/CONSTANCE. Suspect mostly the later with cor pulmonale. She has been noncompliant with her CPAP for the past 2 weeks which may be contributing to her recent exacerbation. Patient also with known dietary indiscretion and high fluid intake in the past. Her dry weight is unknown but actually seems down compared to the past 2 months. She was provided with a new scale as an outpatient a few weeks ago. Her weight at home has between between 345-353 lb. Lasix drip is being initiated per the primary service. Patient likely with high sodium intake based on brief diet recall. Recommend low sodium diet, less than 2,000 mg daily. Will benefit from ongoing education. Discussed MNT referral but she declined in the past- may be willing to do this while inpatient?. Fluid intake should be 6-8 c per day for now while optimizing. We discussed the nature of heart failure and the goals of the program. She is agreeable to ongoing participation. Atrial fib/flutter: S/p cardioversion x 22 April 2020. Rate is regular today and well controlled. Continue Amiodarone and Metoprolol. She is on Coumadin for stroke risk reduction. Chronic anticoagulation: Follows with [facility]. Hypertension: Historically uncontrolled. She's actually hypotensive today. Consider stopping Amlodipine due to her lower extremity edema. CONSTANCE/OHS: Continue CPAP. Managed by Dr. Navarrete. Compliance encouraged. CKD: Follows with Dr. Cervantes. Lower extremity edema: Secondary lymphedema? No evidence of venous reflux in 12/2019. Continue elevation, compression, and diuretics. Disposition: Today's plan was discussed with Dr. Cano. Will be away from the hospital over the weekend. Dr. Oviedo is available if needed. Will follow up with her Sunday if still inpatient. Anticipate close follow up post discharge. History of Present Illness Attending Physician: Alfonso Cano MD History of Present Illness Patient is a 66 year old female with a history of DMII, HTN, COPD, atrial fib/flutter, chronic anticoagulation (Coumadin), chronic lymphedema, chronic diastolic CHF and CKDIII. She has followed with Dr. Rapp in the past. She recently transitioned her cardiology care to Dr. Gallegos. Her most recent CHF hospitalization was in April 2020. She was hospitalized to [facility] from 04/26/20 to 05/07/20 for acute diastolic heart failure due to atrial flutter with RVR in the setting of right lower extremity cellulitis. Right lower extremity cellulitis was treated with intravenous ceftriaxone which she did complete while hospitalized. Given her recurrence of atrial flutter causing heart failure she underwent ablation on April 28. She developed acute renal injury with creatinine 3.2 suspected to be secondary to over diuresis and irbesartan use. She did convert back into atrial fibrillation requiring cardioversion on May 06, 2020. She remained in normal sinus rhythm since then on amiodarone. She was recommended to stay on BiPAP 15/8 nightly whenever napping until follow up with outpatient sleep study. She has been referred to the heart failure program by her primary care provider following hospitalization in April 2020. She had a one time visit but preferred to follow with Dr. Rapp. She follows with [facility] and recently transitioned her cardiology care to [facility] as well. She was recently referred to the heart failure program by Mery Schmitt. Mery increased Torsemide from 40 mg daily to 40 mg BID mid April. Recent cardiac studies: 1. 04/27/20 Echo: EF 55-60%. Moderate concentric LVH. RV mildly dilated. RVSF normal. Left atrium mildly dilated. Dilated IVC. 2. 04/28/20 Atrial flutter ablation with Dr. Galarza 3. 05/02/21 Cardioversion She was evaluated by the heart failure program on 05/13/21. She was slightly hypervolemic. Labs were stable and she was increased to Torsemide 40 mg BID. She has seen Dr. Gallegos in the interim, stable without changes. She continued Amiodarone at the current dose. Her most recent outpatient evaluation was 05/31/21. Spironolactone was added but then later discontinued after follow up labs demonstrated worsening kidney function. She was referred to the ED by her PCP on 06/15/21 for worsening lower extremity edema and possible cellulitis after failed escalation of outpatient diuretics and antibiotics. CXR with pulmonary congestion. ProBNP 333. BUN/creatinine were worsening. She was initiated on Bumex 2 mg IV BID. She's had minimal output overnight. Lasix drip initiated today by the primary service. Patient admits she has been sleeping in her recliner x 2 weeks due to back pain. She has not been using her CPAP for the past 2 weeks which may be a contributing factor to her exacerbation. BiPAP ordered for naps/sleep. Her weights have been variable in recent months. Her true dry weight is unknown at this time. She reports she's feeling slightly improved today. She is on supplemental O2 at 3L. She is normally on 2 L at home. She continues to demonstrate lower extremity edema and erythema. She has been sleeping with her head elevated. Denies PND. She denies chest pain, cough, palpitations. SocialHx: Patient lives with her dad and brother in [place] in a 2 story home. Her bedroom is on the first floor. She is currently retired from [email or web address]. She is a former smoker 1pk/day x 40 years, quit 3-4 years ago. She drinks alcohol occasionally. FamHx: Denies premature heart disease. Allergies Allergy/AdvReac Type Severity Reaction Status Date / Time amoxicillin Allergy Severe SOB, RASH Verified 06/15/21 14:33 Penicillins Allergy Severe SOB, RASH Verified 06/15/21 14:33 clarithromycin Allergy Intermediate "feels Verified 06/15/21 14:33 like flying high" clindamycin Allergy Intermediate "feels Verified 06/15/21 14:33 like flying high" fluconazole Allergy Intermediate "feels Verified 06/15/21 14:33 like flying high" sulfamethoxazole Allergy Intermediate "feels Verified 06/15/21 14:33 like flying high" trimethoprim Allergy Intermediate "feels Verified 06/15/21 14:33 like flying high" Bactrim Allergy Unknown UNKNOWN Verified 02/21/18 10:32 codeine AdvReac Mild ITCHING, Verified 06/15/21 14:33 NAUSEA Home Medications Medication Instructions Recorded Confirmed Type meclizine 12.5 mg tablet 12.5 mg PO TID PRN 10 Days #30 tab 09/26/16 06/15/21 History multivitamin with folic acid 400 1 tab PO DAILY 03/31/20 06/15/21 History mcg tablet albuterol sulfate 90 mcg/actuation 2 puff INHALATION Q6H PRN #18 gm 10/26/20 06/15/21 Rx aerosol inhaler fluocinonide 0.05 % topical cream 1 applic TOPICAL BID #60 g 12/16/20 06/15/21 Rx nystatin 100,000 unit/gram topical 1 applic TOPICAL DAILY #60 g 01/10/21 06/15/21 Rx powder atorvastatin 40 mg tablet (Lipitor) 40 mg PO QAM #30 tab 01/28/21 06/15/21 Rx levothyroxine 50 mcg tablet 50 mcg PO DAILY #90 tab 02/01/21 06/15/21 Rx calcitriol 0.5 mcg capsule 0.5 mcg PO .3XW cap 03/03/21 06/15/21 History hydrocortisone 2.5 % topical cream 1 applic TOPICAL BID PRN g 03/03/21 06/15/21 History ezetimibe 10 mg tablet 10 mg PO QAM #90 tab 03/16/21 06/15/21 Rx ferrous sulfate 325 mg (65 mg 325 mg PO DAILY #90 tab 03/16/21 06/15/21 Rx iron) tablet insulin glargine 100 unit/mL 40 unit SQ BID #30 ml 03/30/21 06/15/21 Rx subcutaneous solution (Lantus U-100 Insulin) amlodipine 2.5 mg tablet 2.5 mg PO DAILY 04/07/21 06/15/21 History insulin aspart U-100 100 unit/mL See Rx Instructions SUBCUT DAILY 04/25/21 06/15/21 Rx subcutaneous solution (Novolog #30 ml U-100 Insulin aspart) metoprolol tartrate 50 mg tablet 50 mg PO BID #180 tab 04/25/21 06/15/21 Rx pantoprazole 40 mg tablet,delayed 40 mg PO DAILY #90 tab 05/02/21 06/15/21 Rx release (Protonix) magnesium chloride 64 mg 64 mg PO BID #60 tab 05/03/21 06/15/21 Rx (magnesium chloride) tablet,delayed release warfarin 5 mg tablet 5 mg PO DAILY tab 05/10/21 06/15/21 History torsemide 20 mg tablet 40 mg PO BID #120 tab 05/30/21 06/15/21 Rx mnxlgzqxbout-ekqllevp-lqpbas tablet 1 tab PO DAILY 05/31/21 06/15/21 History levofloxacin 750 mg tablet 750 mg PO Q48H #5 tab 06/10/21 06/15/21 Rx amiodarone 200 mg tablet 200 mg PO DAILY #30 tab 06/13/21 06/15/21 Rx Patient History Medical History Acute kidney injury Acute kidney injury Atrial fibrillation Paroxysmal. Cardioversion x 2. follows with Dr. Rapp---on coumadin. Atrial flutter hx of Blunt trauma of face Chronic anticoagulation Chronic obstructive pulmonary disease inhaler prn Chronic pain of left knee DJD Degenerative disc disease Diabetes mellitus, type 2 Diabetic foot ulcer associated with type 2 diabetes mellitus Diastolic CHF Hyperkalemia Hyperlipidemia Hypertension Hypothyroidism Iron deficiency anemia Lumbar radicular pain Myofascial pain Nausea and vomiting after administration of anesthetic agent Obesity On anticoagulant therapy eliquis daily Osteoarthritis Secondary hyperparathyroidism of renal origin Spinal stenosis Spinal stenosis of lumbar region Stage 3b chronic kidney disease TIA (transient ischemic attack) (07/14/14) Venous stasis ulcer Surgical History History of cardioversion x2 History of carpal tunnel surgery of left wrist History of colonoscopy with polypectomy History of lumpectomy of right breast benign History of tooth extraction most teeth removed--full upper denture/partial lower History of total hysterectomy with bilateral salpingo-oophorectomy (BSO) Family History Sister Family history of reaction to anesthesia nausea/vomiting Hypothyroidism Father Family history of reaction to anesthesia nausea/vomiting Family hx colonic polyps Hypertension Mother Diabetes Hypertension Denies family history of Ovarian cancer Prostate cancer Myocardial infarction Breast cancer Colorectal cancer Social History Smoking Status: Former smoker Tobacco Type: Cigarettes Age Started Using Tobacco: 20; Age Quit Using Tobacco: 60; packs per day: 1; Years Smoked: 40; Cigarettes Per Day: 20; Number of Years Since Quit: 5; Second Hand Exposure: Yes; Hx Alcohol Use: No Hx Substance Use: No Preferred Language: Slovak Communication Ability: Effective Hearing Ability: Normal Skin Care Specialist Required: No Beliefs That Will Affect Care: None marital status: Single Current Living Situation: Family current occupational status: retired Other Information That Helps Us Care for You: No Feels Safe at Home: Yes Safety Concerns: Feels Safe At This Time Dental Care, Regularly: No Physical Activity Frequency: Does not Exercise Seatbelt Use: always Assistive Devices: CPAP, Denture - Upper, Denture - Lower, Glasses, Oxygen - at Night and Walker Physical Exam Physical Exam: Constitutional: Alert, oriented, in no acute distress. Obese. O2 via NC HEENT: Head is atraumatic and normocephalic. EOMs intact. Sclera anicteric. Face is symmetric. No perioral cyanosis. Mucous membranes moist. Neck: Supple, no clear JVD but difficult exam Pulmonary: Normal respiratory effort, diminished breath sounds but clear to auscultation bilaterally Cardiac: Regular rate and rhythm. Normal S1 and S2, no gallops, no rubs, no murmurs Extremities: 2+ radial pulses bilaterally. 2+ posterior tibialis pulses bilaterally. +2-3 pitting edema to the knees. No cyanosis or clubbing. Significant erythema consistent with venous stasis changes Abdomen: Normal bowel sounds, soft, non-tender, no abdominal mass palpated. Obese Skin: Normal skin color, turgor, and pigmentation, no rash. Chronic stasis. Neurological: Patient is awake, alert, and oriented. Pleasant and cooperative. Answers questions appropriately. Speech is clear. Results & Data ([facility]) Vital Signs (Past 12 Hours) Vital Signs Temp Pulse Pulse Resp BP Pulse Ox 06/17/21 15:19 97.5 F L 51 L 20 106/42 L 99 06/17/21 11:10 97.5 F L 60 20 122/55 L 98 06/17/21 08:20 97.5 F L 59 L 18 112/63 96 06/17/21 08:00 53 L 06/17/21 05:06 97.7 F 74 18 124/63 100 Heart Failure Data/Metrics Heart Failure Type: Diastolic Ejection Fraction: 55-60% Pacemaker: No Implanted Cardiac Defibrillator (ICD): No Bi-V Pacemaker: No Bi-V Defibrillator: No Advanced Directives Discussed/Complete: No Diabetes Mellitus: Yes Evidenced Based Beta Gabby Therapy Beta Gabby Therapy: Not Indicated EUSEBIO/ARB/ARNI Therapy EUSEBIO/ARB/ARNI Therapy: Not Indicated Aldosterone Antagonist Therapy Aldosterone Antagonist Therapy: Not Indicated Coding Level of Care Code 14404 Initial In Care Lvl 3 Diagnoses Acute on chronic diastolic (congestive) heart failure I50.33 Obesity due to excess calories E66.09 Acute kidney injury N17.9 Atrial fibrillation I48.91 CONSTANCE (obstructive sleep apnea) G47.33 Venous insufficiency of both lower extremities I87.2 COPD (chronic obstructive pulmonary disease) J44.9
--- NOTE | 2021-06-17 16:53 | Electrocardiogram Report ---
Test Reason : Blood Pressure : / mmHG Vent. Rate : 069 BPM Atrial Rate : 069 BPM P-R Int : 206 ms QRS Dur : 104 ms QT Int : 446 ms P-R-T Axes : 057 042 026 degrees QTc Int : 477 ms Normal sinus rhythm Normal ECG When compared with ECG of 06-MAY-2020 07:49, QRS duration has increased ST no longer depressed in Inferior leads Confirmed by Hank Seay ([id number]) on 06/17/2021 4:53:46 PM Referred By: REFERRED SELF Confirmed By:Hank Seay
--- NOTE | 2021-06-17 17:40 | Hospitalist Progress Note ---
Date of Service June 17, 2021 Assessment & Plan (1) Bilateral lower extremity edema: Plan: Acute on chronic diastolic heart failure volume overload- cor pulmonale acute on chronic diastolic heart failure - will try lasix continuous infusion cautiously watching renal function, will involve Dr Cervantes if renal function worsenes - - Need to optimize and ensure use of her BiPAP as well - She recieved Rocephin and Vancomycin in the EMD- does not appear to have hernesto lulitis at this time - compression, elevation, diurese (2) Dyspnea: Plan: - BiPAP/AutoPAP while in house close to support that she is on at home - Appreciate RT support (3) Acute on chronic renal failure: Plan: PETE stage II on CKD III - Will need to follow closely- however volume removal is imperative - (4) Left knee DJD: Plan: post joint injections - continue tylenol- NO NSAIDS (5) CONSTANCE (obstructive sleep apnea): Plan: As above- BiPAP when napping and/or sleeping (6) Lumbar radicular pain: Plan: Chronic- continue with Tylenol had poor experience with oxycodone (7) COPD (chronic obstructive pulmonary disease): Plan: Obesity likely restrictive - continue albuterol - some shortness of breath from pulmonary htn likely (8) Atrial fibrillation: Plan: In NSR s/p cardioversion metoprolol and her Amiodarone - Continue warfarin 5mg with daily INR - INR remains therapeutic (9) Obesity due to excess calories: Plan: BMI 58- reported with weight gain of 20-30 pounds since April- no accurate idea of dry weight - Admission and Anticipated Discharge Date Admission Date: June 15, 2021 Subjective only 1 L negative, will not lay flat for saul, Cr modestly improved, will try lasix gtt and follow has massive le edema Review of Systems Review of Systems: Mild distress and fatigue no headache, no visual changes no speech or swallowing issues no chest pain, pressure or palpitations Patient feels dyspneic no abdominal pain, nausea or vomiting, diarrhea or constipation no dysuria, hematuria or frequency chronic venous stasis showing 2-3+ Left-sided radicular back pain, no CVA tenderness no bruising, bleeding does have stasis changes to her lower legs no focal signs of weakness or numbness or altered sensation no complaints of anxiety or depression.. Physical Exam Physical Exam: The patient appeared well nourished and normally developed. Patient is morbidly obese with a BMI of 58 Vital signs as documented. Head exam is normocephalic atraumatic Neck is difficult to assess for JVD, thyromegaly, or carotid bruits. Lungs are distant may be basilar crackles Cardiac exam, distant perhaps systolic murmur Abdominal exam reveals normal bowel sounds, soft non tender, no masses Extremities are 3+ edematous bilaterally and both lower extremities have venous stasis changes Neurologic exam is alert and oriented, no focal loss of strength or sensation Cannot assess straight leg raises due to the patient's body habitus and inability want to lay flat Psychologically is without concerns for anxiety or depression Results & Data Results & Data ([facility]) Vital Signs (Past 12 Hours) Vital Signs Temp Pulse Pulse Resp BP Pulse Ox 06/17/21 15:19 97.5 F L 51 L 20 106/42 L 99 06/17/21 11:10 97.5 F L 60 20 122/55 L 98 06/17/21 08:20 97.5 F L 59 L 18 112/63 96 06/17/21 08:00 53 L PG Care Time/CCT Total # of Minutes Spent Total Time Spent with Patient: Total time spent is greater than 50% in coordination of care (as documented) at patient's floor/unit and/or counseling patient: Coding Level of Care Code 93210 Subseq Hosp Care Lvl 3 Diagnoses Bilateral lower extremity edema R60.0 Dyspnea R06.00 Acute on chronic renal failure N17.9; N18.9 Left knee DJD M17.12 CONSTANCE (obstructive sleep apnea) G47.33 Lumbar radicular pain M54.16 COPD (chronic obstructive pulmonary disease) J44.9 Atrial fibrillation I48.91 Obesity due to excess calories E66.09
[2021-06-18] MEDS: FUROSEMIDE 100 MG in DEXTROSE 5% 90 ML IV SCH ×5 (01:28→23:32)
[2021-06-18] MEDS: LEVOTHYROXINE SODIUM 50 MCG TABLET PO SCH (06:10)
[2021-06-18 06:13] LABS: Basophils # (auto) 0.02 K/uL (0-0.2); Basophils % (auto) 0.3 %; Eosinophils # (auto) 0.24 K/uL (0-0.5); Eosinophils % (auto) 3.2 %; Hematocrit (blood only) 34.5 % (37-47); Hemoglobin 10.3 g/dL (12.0-16.0); Immature Granulocytes # (auto) 0.04 K/uL (0.00-0.02); Immature Granulocytes % (auto) 0.5 %; Lymphocytes # (auto) 1.43 K/uL (1.2-3.4); Lymphocytes % (auto) 19.1 %; Mean Corpuscular Hemoglobin 30.3 pg (25-34); Mean Corpuscular Hgb Conc 29.9 g/dL (32-36); Mean Corpuscular Volume 101.5 fL (80-100); Mean Platelet Volume 9.3 fL (7.4-10.4); Monocytes # (auto) 0.65 K/uL (0.11-0.59); Monocytes % (auto) 8.7 %; Neutrophils # (auto) 5.09 K/uL (1.4-6.5); Neutrophils % (auto) 68.2 %; Platelet Count 317 K/uL (130-400); RDW Coefficient of Variation 15.5 % (11.5-14.5); White Blood Count 7.47 K/uL (4.8-10.8)
[2021-06-18 06:16] LABS: INR 2.6 (0.9-1.1); Prothrombin Time 24.6 Seconds (9.0-12.0)
[2021-06-18 06:32] LABS: BUN Creatinine Ratio 25.1 (10-20); Calcium 8.7 mg/dl (8.5-10.1); Creatinine Clr Calc Pharmacy 28.5 ml/min; Est GFR (African American) 18.2 ml/min; Est GFR (Non-African American) 15.7 ml/min; Magnesium 2.8 mg/dl (1.8-2.4); Phosphorus 4.7 mg/dl (2.5-4.9); Potassium 4.5 mmol/L (3.5-5.1)
[2021-06-18] MEDS: INSULIN ASPART 100 UNITS/ML 3 ML PEN SC SCH ×4 (10:18→20:30)
[2021-06-18] MEDS: INSULIN GLARGINE SOLOSTAR 100 UNITS/ML 3 ML PEN SQ SCH (10:19)
[2021-06-18] MEDS: FLUOCINONIDE 0.05% CR 15 GM TUBE EXT SCH ×2 (10:20→20:32)
[2021-06-18] MEDS: AMIODARONE 200 MG TAB PO SCH (10:28)
[2021-06-18] MEDS: ASPIRIN 81 MG ECTAB PO SCH (10:28)
[2021-06-18] MEDS: amLODIPine BESYLATE 5 MG TAB PO SCH (10:28)
[2021-06-18] MEDS: EZETIMIBE 10 MG TABLET PO SCH (10:29)
[2021-06-18] MEDS: METOPROLOL TARTRATE 50 MG TAB PO SCH ×2 (10:29→20:36)
[2021-06-18] MEDS: ATORVASTATIN 40 MG TAB PO SCH (10:29)
[2021-06-18] MEDS: FERROUS SULFATE 325 MG TAB PO SCH (10:29)
[2021-06-18] MEDS: PANTOprazole 40 MG TAB PO SCH (11:21)
[2021-06-18] MEDS ORDERED: PHARMACY GLYCEMIC MGMT CONSULT PRN (14:04)
--- NOTE | 2021-06-18 14:34 | Pharmacy Report ---
Pharmacy Glycemic Short Note 2 - Date of Service June 18, 2021 - Glycemic Short BSG Results (Last 24 hours): 06/17/21 06/17/21 06/18/21 16:18 20:26 01:52 Glucose POC Glucose 134 H 171 H 93 06/18/21 06/18/21 06/18/21 05:33 07:46 07:47 Glucose 64 L POC Glucose 69 L* 123 H 06/18/21 06/18/21 06/18/21 07:48 08:19 11:48 Glucose POC Glucose 72 81 192 H OUTPATIENT ANTIDIABETIC REGIMEN: * Lantus 40 units BID * Novolog 20-30 units + sliding scale with meals up to TDD of 100 units ASSESSMENT: * 66 y/o F admitted for volume overload and cellulitis. Patient with Type 2 d iabetes and currently PETE on top of CKD-stage 3. * Pt was managed at home on basal bolus insulin using Lantus and Novolog. The same was continued on admission. * Today, pharmacy was consulted. Since pt's fasting BSG was low at 64 mg/dl today, reduced HS Lantus tonight. * Novolog parameters were slightly tightened. Patient's post-prandial BSGs looks well controlled from yesterday. PLAN FOR INPATIENT GLYCEMIC CONTROL: * Basal insulin * Lantus 40 units SQ QAM * Lantus 30 units SQ HS * Bolus insulin * NovoLog per scale ACHS or Q6hrs while NPO * Goal Range: Low 110 mg/dL - High 140 mg/dL * Correction Factor: 15 mg/dL/unit * Nutritional / Prandial insulin per carb ratio of 1 unit per 9 grams CHO consumed PLAN FOR DISCHARGE: * TBD
[2021-06-18] MEDS: WARFARIN SOD 5 MG TAB PO SCH (16:03)
--- NOTE | 2021-06-18 17:50 | Hospitalist Progress Note ---
Date of Service June 18, 2021 Assessment & Plan (1) Bilateral lower extremity edema: Plan: Acute on chronic diastolic heart failure volume overload- cor pulmonale acute on chronic diastolic heart failure - will try lasix continuous infusion, increasing dose 06/18/21, cautiously watching renal function, will involve Dr Cervantes if renal function worsenes - - Need to optimize and ensure use of her BiPAP as well - She recieved Rocephin and Vancomycin in the EMD- does not appear to have cellulitis at this time legs are improving - compression, elevation, diurese (2) Dyspnea: Plan: - BiPAP/AutoPAP while in house close to support that she is on at home - Appreciate RT support (3) Acute on chronic renal failure: Plan: PETE stage II on CKD III - Will need to follow closely- however volume removal is imperative - (4) Left knee DJD: Plan: post joint injections - continue tylenol- NO NSAIDS (5) CONSTANCE (obstructive sleep apnea): Plan: As above- BiPAP when napping and/or sleeping (6) Lumbar radicular pain: Plan: Chronic- continue with Tylenol had poor experience with oxycodone (7) COPD (chronic obstructive pulmonary disease): Plan: Obesity likely restrictive - continue albuterol - some shortness of breath from pulmonary htn likely (8) Atrial fibrillation: Plan: In NSR s/p cardioversion metoprolol and her Amiodarone - Continue warfarin 5mg with daily INR - INR remains therapeutic (9) Obesity due to excess calories: Plan: BMI 58- reported with weight gain of 20-30 pounds since April- no accurate idea of dry weight - Admission and Anticipated Discharge Date Admission Date: June 15, 2021 Subjective pt states she feels somewhat improved, still with significant le edema, less abdominal distension Review of Systems Review of Systems: Mild distress and fatigue no headache, no visual changes no speech or swallowing issues no chest pain, pressure or palpitations Patient feels dyspneic no abdominal pain, nausea or vomiting, diarrhea or constipation no dysuria, hematuria or frequency chronic venous stasis showing 2-3+ Left-sided radicular back pain, no CVA tenderness no bruising, bleeding does have stasis changes to her lower legs no focal signs of weakness or numbness or altered sensation no complaints of anxiety or depression.. Physical Exam Physical Exam: The patient appeared well nourished and normally developed. Patient is morbidly obese with a BMI of 58 Vital signs as documented. Head exam is normocephalic atraumatic Neck is difficult to assess for JVD, thyromegaly, or carotid bruits. Lungs are distant may be basilar crackles Cardiac exam, distant perhaps systolic murmur Abdominal exam reveals normal bowel sounds, soft non tender, no masses Extremities are 3+ edematous bilaterally and both lower extremities have venous stasis changes Neurologic exam is alert and oriented, no focal loss of strength or sensation Cannot assess straight leg raises due to the patient's body habitus and inability want to lay flat Psychologically is without concerns for anxiety or depression Results & Data Results & Data ([facility]) Vital Signs (Past 12 Hours) Vital Signs Temp Pulse Pulse Resp BP Pulse Ox 06/18/21 16:06 97.9 F 63 16 153/61 H 97 06/18/21 15:35 60 06/18/21 12:06 98.6 F 66 16 114/68 96 06/18/21 08:27 97.9 F 61 16 132/63 98 06/18/21 08:00 57 L PG Care Time/CCT Total # of Minutes Spent Total Time Spent with Patient: Total time spent is greater than 50% in coordination of care (as documented) at patient's floor/unit and/or counseling patient: Coding Level of Care Code 73807 Subseq Hosp Care Lvl 3 Diagnoses Bilateral lower extremity edema R60.0 Dyspnea R06.00 Acute on chronic renal failure N17.9; N18.9 Left knee DJD M17.12 CONSTANCE (obstructive sleep apnea) G47.33 Lumbar radicular pain M54.16 COPD (chronic obstructive pulmonary disease) J44.9 Atrial fibrillation I48.91 Obesity due to excess calories E66.09
[2021-06-18] MEDS ORDERED: INSULIN GLARGINE SOLOSTAR 100 UNITS/ML 3 ML PEN SQ SCH (21:00)
[2021-06-18] MEDS: ACETAMINOPHEN 325 MG TAB PO PRN (23:15)
[2021-06-19] MEDS: FUROSEMIDE 100 MG in DEXTROSE 5% 90 ML IV SCH ×4 (04:30→19:44)
[2021-06-19] MEDS: METOPROLOL TARTRATE 50 MG TAB PO SCH ×3 (05:44→20:53)
[2021-06-19] MEDS: LEVOTHYROXINE SODIUM 50 MCG TABLET PO SCH (05:45)
[2021-06-19 06:20] LABS: INR 3.3 (0.9-1.1); Prothrombin Time 30.6 Seconds (9.0-12.0)
[2021-06-19] MEDS: EZETIMIBE 10 MG TABLET PO SCH (07:29)
[2021-06-19] MEDS: ASPIRIN 81 MG ECTAB PO SCH (07:29)
[2021-06-19] MEDS: AMIODARONE 200 MG TAB PO SCH (07:29)
[2021-06-19] MEDS: FERROUS SULFATE 325 MG TAB PO SCH (07:29)
[2021-06-19] MEDS: amLODIPine BESYLATE 5 MG TAB PO SCH (07:30)
[2021-06-19] MEDS: ATORVASTATIN 40 MG TAB PO SCH (07:30)
[2021-06-19] MEDS: PANTOprazole 40 MG TAB PO SCH (07:30)
[2021-06-19] MEDS: FLUOCINONIDE 0.05% CR 15 GM TUBE EXT SCH ×2 (07:37→20:46)
[2021-06-19 07:47] LABS: Hematocrit (blood only) 34.2 % (37-47); Hemoglobin 10.3 g/dL (12.0-16.0); Mean Corpuscular Hemoglobin 30.7 pg (25-34); Mean Corpuscular Hgb Conc 30.1 g/dL (32-36); Mean Corpuscular Volume 102.1 fL (80-100); Mean Platelet Volume 9.4 fL (7.4-10.4); Platelet Count 327 K/uL (130-400); RDW Coefficient of Variation 15.3 % (11.5-14.5); RDW Standard Deviation 57.7 fL (36.4-46.3); Red Blood Count 3.35 M/uL (4.2-5.4); White Blood Count 6.12 K/uL (4.8-10.8)
[2021-06-19 08:25] LABS: BUN Creatinine Ratio 27.1 (10-20); Calcium 8.9 mg/dl (8.5-10.1); Creatinine Clr Calc Pharmacy 31.9 ml/min; Est GFR (African American) 19.6 ml/min; Est GFR (Non-African American) 16.9 ml/min; Potassium 4.4 mmol/L (3.5-5.1)
[2021-06-19] MEDS ORDERED: INSULIN GLARGINE SOLOSTAR 100 UNITS/ML 3 ML PEN SQ SCH (09:00)
[2021-06-19] MEDS ORDERED: INSULIN GLARGINE SOLOSTAR 100 UNITS/ML 3 ML PEN SQ ONE (09:15)
[2021-06-19] MEDS: INSULIN ASPART 100 UNITS/ML 3 ML PEN SC SCH ×4 (09:28→20:47)
--- NOTE | 2021-06-19 15:05 | Pharmacy Report ---
Pharmacy Glycemic Short Note 2 - Date of Service June 19, 2021 - Glycemic Short BSG Results (Last 24 hours): 06/18/21 06/18/21 06/19/21 16:50 20:12 04:00 Glucose POC Glucose 169 H 189 H 106 H 06/19/21 06/19/21 06/19/21 05:33 07:38 07:39 Glucose 49 L* POC Glucose 51 L* 50 L* 06/19/21 06/19/21 08:37 11:17 Glucose POC Glucose 109 H 142 H OUTPATIENT ANTIDIABETIC REGIMEN: * Lantus 40 units BID * Novolog 20-30 units + sliding scale with meals up to TDD of 100 units ASSESSMENT: 06/19: * Pt received total 95 units of insulin yesterday; 70 units basal and 25 units bolus. * Fasting BSG was significantly low this AM at 49 mg/dl though basal dose last night was reduced. * Lantus dose reduced by 50% this AM and ordered a scale based on BSG for tonight to prevent any further hypoglycemia. * Novolog parameters loosened this AM as well. 06/18: * 66 y/o F admitted for volume overload and cellulitis. Patient with Type 2 diabetes and currently PETE on top of CKD-stage 3. * Pt was managed at home on basal bolus insulin using Lantus and Novolog. The same was continued on admission. * Today, pharmacy was consulted. Since pt's fasting BSG was low at 64 mg/dl today, reduced HS Lantus tonight. * Novolog parameters were slightly tightened. Patient's post-prandial BSGs looks well controlled from yesterday. PLAN FOR INPATIENT GLYCEMIC CONTROL: * Basal insulin: decreased * Lantus 20 units SQ QAM * Lantus 10-15 units dose scale SQ HS based on BSG * Bolus insulin: loosened CF/CR * NovoLog per scale ACHS or Q6hrs while NPO * Goal Range: Low 110 mg/dL - High 140 mg/dL * Correction Factor: 20 mg/dL/unit * Nutritional / Prandial insulin per carb ratio of 1 unit per 10 grams CHO consumed PLAN FOR DISCHARGE: * TBD
--- NOTE | 2021-06-19 15:11 | Hospitalist Progress Note ---
Date of Service June 19, 2021 Assessment & Plan (1) Bilateral lower extremity edema: Plan: Acute on chronic diastolic heart failure volume overload- cor pulmonale acute on chronic diastolic heart failure - not great urine output with bumex 2mg bid, did start lasix continuous infusion, increasing dose to 20 mg/hr 06/18/21, cautiously watching renal function, will involve nephrology typically sees Dr Cervantes if renal function worsened but so far has been same or improved - Need to optimize and ensure use of her BiPAP as well - She received Rocephin and Vancomycin in the EMD- does not appear to have cellulitis at this time legs are improving - compression, elevation, diurese (2) Dyspnea: Plan: - BiPAP/AutoPAP while in house close to support that she is on at home - Appreciate RT support (3) Acute on chronic renal failure: Plan: PETE stage II on CKD III - Will need to follow closely- however volume removal is imperative - (4) Left knee DJD: Plan: post joint injections - continue tylenol- NO NSAIDS (5) CONSTANCE (obstructive sleep apnea): Plan: As above- BiPAP when napping and/or sleeping (6) Lumbar radicular pain: Plan: Chronic- continue with Tylenol had poor experience with oxycodone does not want it ever again (7) COPD (chronic obstructive pulmonary disease): Plan: Obesity likely restrictive, not in exacerbation - continue albuterol - some shortness of breath from pulmonary hypertension and diastolic heart failure likely (8) Atrial fibrillation: Plan: In NSR s/p cardioversion metoprolol and her Amiodarone - INR has crept upward and coumadin held 06/19/21 (9) Obesity due to excess calories: Plan: BMI 58- reported with weight gain of 20-30 pounds since April- no accurate idea of dry weight - Plan: needs to continue attempted diuresis Admission and Anticipated Discharge Date Admission Date: June 15, 2021 Subjective pt states she feels somewhat improved, she feels her breathing is easier and abdomen is much less distended, still with significant le edema, less violaceous skin but stil taught Review of Systems Review of Systems: Mild distress and fatigue no headache, no visual changes no speech or swallowing issues no chest pain, pressure or palpitations Patient feels dyspneic no abdominal pain, nausea or vomiting, diarrhea or constipation no dysuria, hematuria or frequency chronic venous stasis showing 2-3+ swelling Left-sided radicular back pain, no CVA tenderness no bruising, bleeding does have stasis changes to her lower legs no focal signs of weakness or numbness or altered sensation no complaints of anxiety or depression.. Physical Exam Physical Exam: The patient appeared well nourished and normally developed. Patient is morbidly obese with a BMI of 62 Vital signs as documented. Head exam is normocephalic atraumatic Neck is difficult to assess for JVD, thyromegaly, or carotid bruits. Lungs are distant may be basilar crackles Cardiac exam, distant perhaps systolic murmur Abdominal exam reveals normal bowel sounds, soft non tender, no masses Extremities are 3+ edematous bilaterally and both lower extremities have venous stasis changes Neurologic exam is alert and oriented, no focal loss of strength or sensation Cannot assess straight leg raises due to the patient's body habitus and inability want to lay flat Psychologically is without concerns for anxiety or depression Results & Data Results & Data ([facility]) Vital Signs (Past 12 Hours) Vital Signs Temp Pulse Pulse Pulse Resp BP Pulse Ox 06/19/21 11:41 97.5 F L 64 20 111/65 98 06/19/21 07:47 97.5 F L 61 16 119/63 100 06/19/21 07:07 62 PG Care Time/CCT Total # of Minutes Spent Total Time Spent with Patient: Total time spent is greater than 50% in coordination of care (as documented) at patient's floor/unit and/or counseling patient: Coding Level of Care Code 38307 Subseq Hosp Care Lvl 3 Diagnoses Bilateral lower extremity edema R60.0 Dyspnea R06.00 Acute on chronic renal failure N17.9; N18.9 Left knee DJD M17.12 CONSTANCE (obstructive sleep apnea) G47.33 Lumbar radicular pain M54.16 COPD (chronic obstructive pulmonary disease) J44.9 Atrial fibrillation I48.91 Obesity due to excess calories E66.09
[2021-06-19] MEDS: INSULIN GLARGINE SOLOSTAR 100 UNITS/ML 3 ML PEN SQ SCH (20:46)
[2021-06-20] MEDS: FUROSEMIDE 100 MG in DEXTROSE 5% 90 ML IV SCH ×3 (00:25→10:04)
[2021-06-20] MEDS: ACETAMINOPHEN 325 MG TAB PO PRN ×2 (03:41→23:37)
[2021-06-20] MEDS ORDERED: Nursing to Pharmacy Communication SCH (05:00)
[2021-06-20] MEDS: LEVOTHYROXINE SODIUM 50 MCG TABLET PO SCH (05:37)
[2021-06-20 07:27] LABS: Hematocrit (blood only) 33.6 % (37-47); Hemoglobin 10.2 g/dL (12.0-16.0); Mean Corpuscular Hemoglobin 30.4 pg (25-34); Mean Corpuscular Hgb Conc 30.4 g/dL (32-36); Mean Corpuscular Volume 100.3 fL (80-100); Mean Platelet Volume 9.3 fL (7.4-10.4); Platelet Count 296 K/uL (130-400); RDW Coefficient of Variation 15.1 % (11.5-14.5); RDW Standard Deviation 55.8 fL (36.4-46.3); Red Blood Count 3.35 M/uL (4.2-5.4); White Blood Count 6.09 K/uL (4.8-10.8)
[2021-06-20 07:35] LABS: INR 2.9 (0.9-1.1); Prothrombin Time 27.2 Seconds (9.0-12.0)
[2021-06-20 07:54] LABS: Calcium 8.4 mg/dl (8.5-10.1); Creatinine Clr Calc Pharmacy 33.2 ml/min; Est GFR (African American) 20.6 ml/min; Est GFR (Non-African American) 17.7 ml/min; Potassium 3.8 mmol/L (3.5-5.1)
[2021-06-20] MEDS: INSULIN ASPART 100 UNITS/ML 3 ML PEN SC SCH ×4 (08:05→20:48)
[2021-06-20] MEDS: amLODIPine BESYLATE 5 MG TAB PO SCH (08:13)
[2021-06-20] MEDS: AMIODARONE 200 MG TAB PO SCH (08:13)
[2021-06-20] MEDS: CALCITRIOL 0.25 MCG CAPSULE PO SCH (08:14)
[2021-06-20] MEDS: EZETIMIBE 10 MG TABLET PO SCH (08:14)
[2021-06-20] MEDS: ATORVASTATIN 40 MG TAB PO SCH (08:14)
[2021-06-20] MEDS: ASPIRIN 81 MG ECTAB PO SCH (08:14)
[2021-06-20] MEDS: FERROUS SULFATE 325 MG TAB PO SCH (08:15)
[2021-06-20] MEDS: FLUOCINONIDE 0.05% CR 15 GM TUBE EXT SCH ×2 (08:16→20:46)
[2021-06-20] MEDS: PANTOprazole 40 MG TAB PO SCH (08:17)
[2021-06-20 08:18] LABS: Estimated Average Glucose 146 mg/dl; Hemoglobin A1C 6.7 % (4.5-5.6)
[2021-06-20] MEDS: INSULIN GLARGINE SOLOSTAR 100 UNITS/ML 3 ML PEN SC SCH (08:29)
[2021-06-20] MEDS: METOPROLOL TARTRATE 50 MG TAB PO SCH ×2 (08:32→20:46)
--- NOTE | 2021-06-20 09:25 | Heart Failure Progress Note ---
Date of Service June 20, 2021 Assessment & Plan (1) Acute on chronic diastolic (congestive) heart failure: (2) Obesity due to excess calories: (3) Acute kidney injury: (4) Atrial fibrillation: (5) CONSTANCE (obstructive sleep apnea): (6) Venous insufficiency of both lower extremities: (7) COPD (chronic obstructive pulmonary disease): Plan: Chronic diastolic congestive heart failure: Patient has a difficult exam due to her body habitus. Her breathing is improving and she is on her home O2 requirement. Her biggest issue continues to be her lower extremities. Her symptoms are likely multifactorial- she also has chronic venous insufficiency/lymphedema and OHS/CONSTANCE. Suspect mostly the later with cor pulmonale. She has been noncompliant with her CPAP for the past 2 weeks prior to admission which may be contributing to her recent exacerbation. Patient also with known dietary indiscretion and high fluid intake in the past. Her dry weight is unknown. She was provided with a new scale as an outpatient a few weeks ago. Her weight at home has between between 345-353 lb. She's 375 lb on the scale here today? Lasix drip has been running the past few days with minimal response. Creatinine improving but BUN increasing. Suspect she may be near euvolemic. She is anxious to go home. Once optimized would recommend transitioning to PO x 24 to assess her response before discharge. Patient takes Torsemide at home and was not having adequate diuresis. Would consider Bumex 2 mg BID on discharge. Patient likely with high sodium intake based on brief diet recall. Recommend low sodium diet, less than 2,000 mg daily. Will benefit from ongoing education. Discussed MNT referral but she declined in the past- may be willing to do this while inpatient?. Fluid intake should be 6-8 c per day for now while optimizing. We discussed the nature of heart failure and the goals of the program. She is agreeable to ongoing participation. Atrial fib/flutter: S/p cardioversion x 22 April 2020. Rate is regular today and well controlled. Continue Amiodarone and Metoprolol. She is on Coumadin for stroke risk reduction. Chronic anticoagulation: Follows with [facility] coag clinic. Hypertension: Historically uncontrolled. She's actually hypotensive today. Consider stopping Amlodipine due to her lower extremity edema. CONSTANCE/OHS: Continue CPAP. Managed by Dr. Navarrete. Compliance encouraged. CKD: Follows with Dr. Cervantes. Lower extremity edema: Secondary lymphedema? No evidence of venous reflux in 12/2019. Continue elevation, compression, and diuretics. Hold Amlodipine. Disposition: Will continue to follow during hospitalization. Anticipate close follow up post discharge- 06/28/21 at 1030. Today's plan was communicated with Dr. Montes with the primary service. Admission and Anticipated Discharge Date Admission Date: June 15, 2021 Subjective Patient reports she's feeling well. She is sitting comfortably in the bedside chair. She notes her breathing is improved. She's on her regular amount of O2, 2L. She feels that her edema is improving some and her abdomen is less distended. She continues on a Lasix drip. She is net negative 3 L. Weights have been variable but she was 375 lb on the standing scale this am. Physical Exam Physical Exam: Constitutional: Alert, oriented, in no acute distress. Obese. O2 via NC HEENT: Head is atraumatic and normocephalic. EOMs intact. Sclera anicteric. Face is symmetric. No perioral cyanosis. Mucous membranes moist. Neck: Supple, no clear JVD but difficult exam Pulmonary: Normal respiratory effort, diminished breath sounds but clear to auscultation bilaterally Cardiac: Regular rate and rhythm. Normal S1 and S2, no gallops, no rubs, no murmurs Extremities: 2+ radial pulses bilaterally. 2+ posterior tibialis pulses bilaterally. +2-3 pitting edema to the knees. No cyanosis or clubbing. Significant hyperpigmentation consistent with venous stasis changes Abdomen: Normal bowel sounds, soft, non-tender, no abdominal mass palpated. Obese Skin: Normal skin color, turgor, and pigmentation, no rash. Chronic stasis. Neurological: Patient is awake, alert, and oriented. Pleasant and cooperative. Answers questions appropriately. Speech is clear. Results & Data ([facility]) Vital Signs (Past 12 Hours) Vital Signs Temp Pulse Pulse Pulse Resp BP BP 06/20/21 07:34 97.5 F L 59 L 16 120/74 06/20/21 06:45 131/73 06/20/21 04:00 97.7 F 56 L 18 110/56 L 06/19/21 23:00 97.7 F 62 18 137/81 06/19/21 22:19 60 Pulse Ox 06/20/21 07:34 06/20/21 06:45 06/20/21 04:00 99 06/19/21 23:00 98 06/19/21 22:19 PG Care Time/CCT Total # of Minutes Spent Total Time Spent with Patient: Total time spent is greater than 50% in coordination of care (as documented) at patient's floor/unit and/or counseling patient: Heart Failure Data/Metrics Heart Failure Type: Diastolic Evidenced Based Beta Gabby Therapy Beta Gabby Therapy: Not Indicated EUSEBIO/ARB/ARNI Therapy EUSEBIO/ARB/ARNI Therapy: Not Indicated Aldosterone Antagonist Therapy Aldosterone Antagonist Therapy: Not Indicated Coding Level of Care Code 55613 Subseq Hosp Care Lvl 3 Diagnoses Acute on chronic diastolic (congestive) heart failure I50.33 Obesity due to excess calories E66.09 Acute kidney injury N17.9 Atrial fibrillation I48.91 CONSTANCE (obstructive sleep apnea) G47.33 Venous insufficiency of both lower extremities I87.2 COPD (chronic obstructive pulmonary disease) J44.9
--- NOTE | 2021-06-20 13:15 | Pharmacy Report ---
Pharmacy Glycemic Short Note 2 - Date of Service June 20, 2021 - Glycemic Short BSG Results (Last 24 hours): 06/19/21 06/19/21 06/20/21 17:01 20:31 06:56 Glucose 91 POC Glucose 240 H 179 H 06/20/21 06/20/21 07:50 11:22 Glucose POC Glucose 105 H 111 H OUTPATIENT ANTIDIABETIC REGIMEN: * Lantus 40 units BID * Novolog 20-30 units + sliding scale with meals up to TDD of 100 units ASSESSMENT: 06/20/21 * Patient received 58 units of insulin yesterday with 35 units of basal and 23 units of bolus insulin. * BSGs yesterday were [phone] * Fasting today is 105 mg/dL which is significantly improved. Patient requires probably around 50-60 units of basal per day. * Give Lantus 40 units now then scale for this evening. * Tight CR as patient requires more coverage due to BSGs trending upwards. 06/19: * Pt received total 95 units of insulin yesterday; 70 units basal and 25 units bolus. * Fasting BSG was significantly low this AM at 49 mg/dl though basal dose last night was reduced. * Lantus dose reduced by 50% this AM and ordered a scale based on BSG for tonight to prevent any further hypoglycemia. * Novolog parameters loosened this AM as well. 06/18: * 66 y/o F admitted for volume overload and cellulitis. Patient with Type 2 diabetes and currently PETE on top of CKD-stage 3. * Pt was managed at home on basal bolus insulin using Lantus and Novolog. The same was continued on admission. * Today, pharmacy was consulted. Since pt's fasting BSG was low at 64 mg/dl today, reduced HS Lantus tonight. * Novolog parameters were slightly tightened. Patient's post-prandial BSGs looks well controlled from yesterday. PLAN FOR INPATIENT GLYCEMIC CONTROL: * Basal insulin: * Lantus 40 units SQ QAM * Lantus 0-20 units dose scale SQ HS based on BSG * Bolus insulin: * NovoLog per scale ACHS or Q6hrs while NPO * Goal Range: Low 110 mg/dL - High 140 mg/dL * Correction Factor: 20 mg/dL/unit * Nutritional / Prandial insulin per carb ratio of 1 unit per 6 grams CHO consumed PLAN FOR DISCHARGE: * Patient's HbA1C is at goal. Okay to continue current regimen as long as p atient does NOT have hypoglycemia at home.
--- NOTE | 2021-06-20 14:40 | Hospitalist Progress Note ---
Date of Service June 20, 2021 Assessment & Plan (1) Bilateral lower extremity edema: Plan: Acute on chronic diastolic heart failure. - Initially on Bumex, without great UOP, so switched to Lasix infusion on 06/17. Eventually stopped on 06/20 for indications of euvolemia and increase in BUN. - Will restart Bumex 2 mg PO BID in discussion with Debbie Lazaro. - I think some of her leg swelling is also lymphedema, venous insufficiency as her skin on her shins is hypertrophied and violaceous. She reports it is stable/improving with diuresis. Also, she has psoriasis which seems poorly controlled at the moment. She reports that when she is sick, she often has a flare. (2) Dyspnea: Plan: BiPAP/AutoPAP while in house close to support that she is on at home. Had not been using it at home due to sleeping in her chair. - Appreciate RT support (3) Acute on chronic renal failure: Plan: Baseline Cr is ~1.8 - 1.9, CKD III. - Cr on admission was 3.35. - Cr slowly coming down with diuresis; however, BUN is rising. Previously BUN was 20 - 30, now 81 today. - Will need to follow closely (4) Hypertension: Plan: BP today is actually low at 100/60 with diuresis. - Diuresis as above - Hold home amlodipine given leg swelling (5) Uncontrolled type 2 diabetes mellitus with kidney complication, with long- term current use of insulin: Plan: A1c was 6.7% this admission. - Continue long-acting and sliding scale insulin - Glycemic pharmacy following (6) Atrial fibrillation: Plan: In NSR, s/p cardioversion. - Continue metoprolol and amiodarone - Holding warfarin -> INR was 2.9 today. (7) COPD (chronic obstructive pulmonary disease): Plan: Obesity likely restrictive, not in exacerbation. - Continue albuterol PRN (8) CONSTANCE (obstructive sleep apnea): Plan: As above- BiPAP when napping and/or sleeping. (9) Lumbar radicular pain: Plan: Chronic. Had poor experience with oxycodone does not want it ever again. - Continue Tylenol PRN (10) Left knee DJD: Plan: Post joint injections. - Continue Tylenol- NO NSAIDS (11) Obesity due to excess calories: Plan: BMI 58 - reported with weight gain of 20-30 pounds since April - no accurate idea of dry weight. - Encourage weight reduction. Admission and Anticipated Discharge Date Admission Date: June 15, 2021 Subjective Doing well overall. She feels she doesn't have a lot of swelling in the stomach. Reports no fevers/chills, chest pain, shortness of breath, abdominal pain, nausea, or vomiting. Physical Exam Constitutional: WD/WN, vitals as above Eyes: EOM intact bilaterally; no conjunctival abnormality ENMT: external ear and nose normal, oropharynx normal Neck: trachea midline, no thyromegaly normal visual inspection Respiratory: normal respiratory effort, lungs clear to auscultation no respiratory distress Cardiovascular: RRR, no murmur, no edema Gastrointestinal (Abdomen): Inspection/Auscultation: abdomen normal to inspection; abdomen not distended Musculoskeletal: no cyanosis or clubbing, extremities motor strength 5/5 Skin: + subcutaneous nodules (Psoriasis), + erythema and + skin hypertrophy (On shins bilaterally) Neurologic: moves all extremities and awake Psychiatric: Orientation: alert, oriented to person and cooperative Results & Data Results & Data ([facility]) Vital Signs (Past 12 Hours) Vital Signs Temp Pulse Resp BP BP Pulse Ox 06/20/21 12:00 36.4 C L 61 18 100/57 L 06/20/21 07:34 36.4 C L 59 L 16 120/74 06/20/21 06:45 131/73 06/20/21 04:00 36.5 C 56 L 18 110/56 L 99 PG Care Time/CCT Total # of Minutes Spent Total Time Spent with Patient: Total time spent is greater than 50% in coordination of care (as documented) at patient's floor/unit and/or counseling patient: Coding Level of Care Code 85225 Subseq Hosp Care Lvl 3 Diagnoses Bilateral lower extremity edema R60.0 Dyspnea R06.00 Acute on chronic renal failure N17.9; N18.9 Left knee DJD M17.12 CONSTANCE (obstructive sleep apnea) G47.33 Lumbar radicular pain M54.16 COPD (chronic obstructive pulmonary disease) J44.9 Atrial fibrillation I48.91 Obesity due to excess calories E66.09 Hypertension I10 Uncontrolled type 2 diabetes mellitus with kidney complication, with long-term current use of insulin E11.29; E11.65; Z79.4
[2021-06-20] MEDS ORDERED: WARFARIN SOD 2.5 MG TAB PO SCH (16:00)
[2021-06-20] MEDS: INSULIN GLARGINE SOLOSTAR 100 UNITS/ML 3 ML PEN SQ SCH (20:47)
[2021-06-21] MEDS: LEVOTHYROXINE SODIUM 50 MCG TABLET PO SCH (05:39)
[2021-06-21 06:54] LABS: Hematocrit (blood only) 32.1 % (37-47); Hemoglobin 9.7 g/dL (12.0-16.0); Mean Corpuscular Hemoglobin 30.4 pg (25-34); Mean Corpuscular Hgb Conc 30.2 g/dL (32-36); Mean Corpuscular Volume 100.6 fL (80-100); Mean Platelet Volume 9.2 fL (7.4-10.4); Platelet Count 283 K/uL (130-400); RDW Coefficient of Variation 14.9 % (11.5-14.5); RDW Standard Deviation 55.2 fL (36.4-46.3); Red Blood Count 3.19 M/uL (4.2-5.4); White Blood Count 6.38 K/uL (4.8-10.8)
[2021-06-21 07:04] LABS: INR 2.4 (0.9-1.1); Prothrombin Time 22.4 Seconds (9.0-12.0)
[2021-06-21 07:19] LABS: BUN Creatinine Ratio 34.3 (10-20); Calcium 8.7 mg/dl (8.5-10.1); Creatinine Clr Calc Pharmacy 39.3 ml/min; Est GFR (African American) 25.2 ml/min; Est GFR (Non-African American) 21.8 ml/min; Magnesium 2.6 mg/dl (1.8-2.4); Potassium 3.6 mmol/L (3.5-5.1)
[2021-06-21] MEDS: ASPIRIN 81 MG ECTAB PO SCH (08:31)
[2021-06-21] MEDS: METOPROLOL TARTRATE 50 MG TAB PO SCH (08:31)
[2021-06-21] MEDS: FERROUS SULFATE 325 MG TAB PO SCH (08:31)
[2021-06-21] MEDS: PANTOprazole 40 MG TAB PO SCH (08:31)
[2021-06-21] MEDS: ATORVASTATIN 40 MG TAB PO SCH (08:31)
[2021-06-21] MEDS: AMIODARONE 200 MG TAB PO SCH (08:31)
[2021-06-21] MEDS: EZETIMIBE 10 MG TABLET PO SCH (08:31)
[2021-06-21] MEDS: INSULIN GLARGINE SOLOSTAR 100 UNITS/ML 3 ML PEN SC SCH (08:32)
[2021-06-21] MEDS: INSULIN ASPART 100 UNITS/ML 3 ML PEN SC SCH ×2 (08:32→12:10)
[2021-06-21] MEDS: FLUOCINONIDE 0.05% CR 15 GM TUBE EXT SCH (08:34)
[2021-06-21] MEDS ORDERED: BUMETANIDE 1 MG TAB PO SCH (09:00)
--- NOTE | 2021-06-21 15:00 | Discharge Summary ---
Date of Service June 21, 2021 Admission HPI Per Admitting Provider 66 YOF with past medical history of: Morbid obesity, DM, diabetic foot wounds, CKD, COPD, CONSTANCE, HLD, HTN, Fe deficient anemia, lumbar radicular pain, OA, chronic venous stasis, afib(on Coumadin), GERD. Patient referred from PCP office today for concerns of worsening lower extremity cellulitis of bilateral lower extremities. Patient was placed on Levofloxacin on 20August for possible cellulitis of her lower extremities, the patient has been sleeping in her recliner secondary to sciatic back pain and has also developed some small blisters on the her legs. The patient had routinely followed with the wound care clinic for lower extremity ulcers and was recently following them for heel wound on her left leg. She also follows with orthopaedics for knee injections last done in April 2021. For her HFpEF she follows with the heart failure clinic. Recently she has been noted to have 20-30 pound weight gain she was placed on Torsemide 40 mg BID and Spironolactone 25mg daily; this was noted to increase her renal indices, which continue to increase on today up to BUN 76 and BACKUP ADMINISTRATIVE COORDINATOR 3.34. Her diuretics were scaled back after her increase in renal function. In the EMD the patient had a CXR done and routine labs. She was given 1GM of Rocephin and 2.5 GM of Vancomycin. Her CXR was consistent with pulmonary vascular congestion. Her laboratory data revealed normal WBC with NLR of 3:1, INR of 2.1, K 5.4 and BUN of 76 with a BACKUP ADMINISTRATIVE COORDINATOR of 3.34. Patient states that over the past month her legs have gotten more swollen starting at her ankles and proceeding up to her legs and now with her abdomen feeling enlarged. The redness and blisters started to increase shortly after that. She has not had any purulent drainage and unsure if she has had any fevers. Her blisters have been weeping clear serous fluid. Patient appears to be in volume overload at this time with poor response to outpatient diuretics. Will give 2mg IV Bumex now and follow volume status and renal function. Will hold on her antibiotics at this time. She states that she is compliant with her ASV (biPAP) at home. Principal Diagnosis Volume overload with symptoms in the legs, abdomen, and pulmonary edema Discharge Exam Constitutional WD/WN, vitals as above Eyes EOM intact bilaterally; no conjunctival abnormality ENMT external ear and nose normal, oropharynx normal Neck trachea midline, no thyromegaly normal visual inspection Respiratory normal respiratory effort, lungs clear to auscultation no respiratory distress Cardiovascular RRR, no murmur, no edema Gastrointestinal (Abdomen) Inspection/Auscultation: abdomen normal to inspection; abdomen not distended Musculoskeletal no cyanosis or clubbing, extremities motor strength 5/5 Skin + subcutaneous nodules (Psoriasis), + erythema and + skin hypertrophy (On shins bilaterally) Neurologic moves all extremities and awake Psychiatric Orientation: alert, oriented to person and cooperative Discharge Data Allergies Allergy/AdvReac Type Severity Reaction Status Date / Time amoxicillin Allergy Severe SOB, RASH Verified 06/15/21 14:33 Penicillins Allergy Severe SOB, RASH Verified 06/15/21 14:33 clarithromycin Allergy Intermediate "feels Verified 06/15/21 14:33 like flying high" clindamycin Allergy Intermediate "feels Verified 06/15/21 14:33 like flying high" fluconazole Allergy Intermediate "feels Verified 06/15/21 14:33 like flying high" sulfamethoxazole Allergy Intermediate "feels Verified 06/15/21 14:33 like flying high" trimethoprim Allergy Intermediate "feels Verified 06/15/21 14:33 like flying high" Bactrim Allergy Unknown UNKNOWN Verified 02/21/18 10:32 codeine AdvReac Mild ITCHING, Verified 06/15/21 14:33 NAUSEA Consultations 06/15/21 20:40 ED Decision to Admit Stat Hospital Course (1) Bilateral lower extremity edema: Acute on chronic diastolic heart failure. - Initially on Bumex, without great UOP, so switched to Lasix infusion on 06/17. Eventually stopped on 06/20 for indications of euvolemia and increase in BUN. - Will restart Bumex 2 mg PO BID in discussion with Debbie Lazaro. - I think some of her leg swelling is also lymphedema & venous insufficiency as her skin on her shins is hypertrophied and violaceous. The swelling did improve to some extent, but I would say it was only mildly better. There was some improvement in the redness though. - On discharge, we had lengthy conversation about salt/fluid intake. She will aim for 2 g of sodium or less per day and attempt to weigh herself daily. She was reluctant to return to the [facility] as she had a bad experience there, but we did schedule an appointment if she is willing. I offered home health, but she declined. I did discuss her BiPap with her and the importance of continuing to use it. Discharged on Bumex 2 mg PO BID and close Heart Failure follow-up. (2) Dyspnea: BiPAP/AutoPAP while in house close to support that she is on at home. Had not been using it at home due to sleeping in her chair. - Appreciate RT support (3) Acute on chronic renal failure: Baseline Cr is ~1.8 - 1.9, CKD III. - Cr on admission was 3.35. - Cr slowly coming down with diuresis. Down to 2.3 on discharge. BUN also lower, though only slightly from peak. - Will need to follow closely as outpatient. (4) Hypertension: BP today is actually low at 100/60 with diuresis. 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 - Continue long-acting and sliding scale insulin - Glycemic pharmacy following (6) Atrial fibrillation: In NSR, s/p cardioversion. - Continue metoprolol and amiodarone - Holding warfarin -> INR was 2.4 on discharge. (7) COPD (chronic obstructive pulmonary disease): Obesity likely restrictive, not in exacerbation. - Continue albuterol PRN (8) CONSTANCE (obstructive sleep apnea): As above- BiPAP when napping and/or sleeping. (9) Lumbar radicular pain: Chronic. Had poor experience with oxycodone does not want it ever again. - Continue Tylenol PRN (10) Left knee DJD: Post joint injections. - Continue Tylenol- NO NSAIDS (11) Obesity due to excess calories: BMI 58 - reported with weight gain of 20-30 pounds since April - no accurate idea of dry weight. - Encourage weight reduction. Total Time Total Time Spent Total Time Spent (In Minutes): 35 Discharge Plan Discharge Items Patient Disposition: Home - Self-Care Reason For Visit: VOLUME OVERLOAD, CELLULITIS Discharge Diagnosis: Volume overload, leg and abdomen swelling Activity: Resume your previous activity Non-emergency contact: Primary Care Provider and Specialist Call non-emergency contact if: your symptoms worsen Follow-up/Referrals: Jimbo Srivastava III, MD [Primary Care Provider] - 06/29/21 11:00 am Arlin Ambrocio DO, FACEP [Physician] - 07/06/21 1:00 pm (An appointment has been scheduled for you at the [facility] on 07/06/21 at 1pm. ) Yasmeen Lazaro PA-C [Family Provider] - 06/28/21 10:30 am (Congestive Heart Failure Program Appointment Information Early follow up is essential to managing your heart failure. An appointment has been scheduled for you with the [facility] within 7 days of discharge. Anticipate this visit to be 30-60 minutes long. Please expect a steam plant records clerk phone call from one of our nurses approximately 48 hours from discharge. They will also be placing an order for lab work to be completed 1-2 days prior to your heart failure follow up appointment. Please be sure to have this done so we can go over the results when you come in. Office Location The cardiology office building is located in front of the hospital at [address]. Bring the following with you to your follow-up doctor appointments: Please bring your daily weight log any discharge paperwork all of your medication bottles with you to this visit. ) Tanvir Baptiste MD [Physician] - 07/07/21 2:00 pm (You have an appointment with Dr. Baptiste (dermatology) on 07/07/21 at 2pm. You have been placed on the cancellation list - Dr. Baptiste's office may call you if an earlier appointment becomes available.) Diet: Carb Consistent or DM2, Heart Healthy and Low Sodium (2gm) Addtl Attending Provider Instructions: Ms. Perkins, You were admitted to the hospital with leg swelling and redness, abdomen swelling, and trouble breathing. This seems to have stemmed from some extra fluid on your legs, abdomen, and in the lungs. Over the course of the last 3 days, we have gotten fluid off. At this point, we think you are fairly close to your baseline weight which on our scale is 375 lbs. Please weigh yourself on your home scale to see if this matches well. Then, try to weigh yourself daily in the mornings after having used the bathroom. Try to use the same type/set of clothes in order to keep a consistent weight. If you start to gain weight, please speak with Yasmeen Lazaro (call her office) to see how to adjust your medication. At the same time, please track your sodium intake. When you drink fluids, the sodium you eat causes your body to keep them trapped in you. If you eat less sodium, your body will not hold on to as much fluid. Use the sheet we reviewed to try to track your weight and your sodium intake every day. We also stopped your amlodipine as this can cause leg swelling (though less likely when it's at a low dose like yours was). Your blood pressure here was good, so we did stop it. Yasmeen Lazaro can restart this or another blood pressure medication if needed. Pending Studies at Discharge: No Stand-Alone Forms: My [facility] ClasesD, Smoking Cessation Medications and DC Order Prescriptions: New bumetanide 1 mg Tablet 2 mg PO BID Qty: 60 RF: 0 Continued calcitriol 0.5 mcg capsule 0.5 mcg PO .3XW RF: 0 hydrocortisone 2.5 % cream 1 applic topical BID PRN (Reason: Skin Irritation) RF: 0 meclizine 12.5 mg Tablet 12.5 mg PO TID PRN (Reason: Dizziness) 10 Days Qty: 30 RF: 0 albuterol sulfate 90 mcg/actuation HFA aerosol inhaler 2 puff INHALATION Q6H PRN (Reason: Shortness Of Breath) Qty: 18 RF: 5 fluocinonide 0.05 % cream 1 applic topical BID Qty: 60 RF: 1 atorvastatin [Lipitor] 40 mg tablet 40 mg PO QAM Qty: 30 RF: 5 levothyroxine 50 mcg tablet 50 mcg PO DAILY Qty: 90 RF: 3 ezetimibe 10 mg tablet 10 mg PO QAM Qty: 90 RF: 3 ferrous sulfate 325 mg (65 mg iron) tablet 325 mg PO DAILY Qty: 90 RF: 3 Lantus U-100 Insulin 100 unit/mL solution 40 unit SQ BID Qty: 30 RF: 5 metoprolol tartrate 50 mg tablet 50 mg PO BID Qty: 180 RF: 3 insulin aspart U-100 [Novolog U-100 Insulin aspart] 100 unit/mL solution See Rx Instructions subcut DAILY Qty: 30 RF: 5 pantoprazole [Protonix] 40 mg tablet,delayed release (DR/EC) 40 mg PO DAILY Qty: 90 RF: 3 magnesium chloride 64 mg tablet,delayed release (DR/EC) 64 mg PO BID Qty: 60 RF: 5 amiodarone 200 mg tablet 200 mg PO DAILY Qty: 30 RF: 5 warfarin 5 mg tablet 5 mg PO DAILY RF: 0 nystatin 100,000 unit/gram powder 1 applic topical DAILY Qty: 60 RF: 1 [id number]-vyvaxzij-ubuzbv Tablet 1 tab PO DAILY RF: 0 multivitamin with folic acid 400 mcg Tablet 1 tab PO DAILY RF: 0 Discontinued torsemide 20 mg tablet 40 mg PO BID Qty: 120 RF: 11 levofloxacin 750 mg tablet 750 mg PO Q48H Qty: 5 RF: 0 amlodipine 2.5 mg tablet 2.5 mg PO DAILY RF: 0 Discharge Orders: Discharge Order (Routine); Ordered 06/21/21 Ordered By: Nick Cottrell/Other Patient Handouts: A1C, Managing Type 2 Diabetes Admission Data Admit Date/Time: 06/15/21 22:53 Attending Provider: Nick Montes Admit Provider: Adrián Headley Primary Care Provider: Jimbo Srivastava III Other Providers: Nick Montes Other Interventions: Discharge Summary Assessment (RN) Last Done: 06/21/21 11:38 Coding Level of Care Code D/C DAY MANAGEMENT >30 MINS Diagnoses Bilateral lower extremity edema R60.0 Dyspnea R06.00 Acute on chronic renal failure N17.9; N18.9 Hypertension I10 Uncontrolled type 2 diabetes mellitus with kidney complication, with long-term current use of insulin E11.29; E11.65; Z79.4 Atrial fibrillation I48.91 COPD (chronic obstructive pulmonary disease) J44.9 CONSTANCE (obstructive sleep apnea) G47.33 Lumbar radicular pain M54.16 Left knee DJD M17.12 Obesity due to excess calories E66.09
[2021-06-22] MEDS ORDERED: INSULIN GLARGINE SOLOSTAR 100 UNITS/ML 3 ML PEN SC SCH (09:00)
== END 2021-06-21 13:16 | disposition home or self-care (01) | DRG 291 ==
LOC: ED 16:22 → EDINP 22:53 → SUATTDRO 22:53 → 2N 06-16 01:49

== ENCOUNTER 2024-01-21 09:25 | Inpatient (IN) ==
[2024-01-21] MEDS: SODIUM CHLORIDE 0.9% 500 ML IV SCH (09:50)
[2024-01-21 10:11] LABS: Basophils # (auto) 0.03 K/uL (0.00-0.20); Basophils % (auto) 0.5 %; Eosinophils % (auto) 3.4 %; Hematocrit (blood only) 30.3 % (37.0-47.0); Hemoglobin 9.3 g/dl (12.0-16.0); Immature Granulocytes # (auto) 0.07 K/uL (0.01-0.20); Immature Granulocytes % (auto) 1.2 %; Lymphocytes # (auto) 1.44 K/uL (1.20-3.40); Lymphocytes % (auto) 24.5 %; Mean Corpuscular Hemoglobin 30.6 pg (25.0-34.0); Mean Corpuscular Hgb Conc 30.7 g/dL (32.0-36.0); Mean Corpuscular Volume 99.7 fL (80.0-100.0); Mean Platelet Volume 10.9 fL (9.4-12.4); Monocytes # (auto) 0.53 K/uL (0.11-0.59); Neutrophils # (auto) 3.61 K/uL (1.40-6.50); Neutrophils % (auto) 61.4 %; Nucleated RBC # (auto) 0.05 K/uL (0.00-0.12); Nucleated RBC % (auto) 0.9 %; Platelet Count 205 K/uL (130-400); RDW Coefficient of Variation 19.2 % (11.5-14.5); RDW Standard Deviation 69.5 fL (36.4-46.3); Red Blood Count 3.04 M/uL (4.20-5.40); White Blood Count 5.88 K/ul (4.8-10.8)
--- NOTE | 2024-01-21 10:13 | Emergency Department Note ---
History of Present Illness General Chief complaint: Rectal Bleed Stated complaint: BLOOD IN STOOL Time Seen by Provider: 01/21/24 09:35 History of Present Illness Provider Complaint: + melena and + gross hematochezia Onset (ago): 2 day(s) Pain Consistency: + constant Context: + anticoagulant use (On Coumadin); no liver disease, no hemorrhoids, no swallowed FB or no rectal trauma Associated symptoms: + shortness of breath; no abdominal pain, no nausea, no vomiting, no fever or no chills Home Medications Medication Instructions Recorded Confirmed Type meclizine 12.5 mg tablet 12.5 mg PO TID PRN Dizziness 10 09/26/16 01/21/24 History days #30 tabs Wheelchair (Manual) (Manual #1 ea 08/04/21 01/11/24 Rx Wheelchair) pen needle, diabetic 31 gauge x #200 ea 10/09/22 01/11/24 Rx 3/16" (BD Ultra-Fine Mini Pen Needle) [id number] 8 mg-folic 400 1 tab PO QAM 12/27/22 01/21/24 History mcg-K 50 mcg-lutein 300 mcg tablet (Centrum Silver Women) acetaminophen 500 mg capsule 1,000 mg PO HS PRN Pain 01/05/23 01/21/24 History ferrous sulfate 325 mg (65 mg 325 mg PO QAM 01/05/23 01/21/24 History iron) tablet betamethasone dipropionate 0.05 % 1 applic topical BID #45 grams 01/15/23 01/21/24 Rx topical ointment Oxygen Home [id number] #1 ea 01/19/23 01/11/24 Rx metoprolol tartrate 50 mg tablet 50 mg PO BID #180 tabs 02/12/23 01/21/24 Rx tacrolimus 0.1 % topical ointment 1 applic topical BID #30 grams 03/26/23 01/21/24 Rx albuterol sulfate 90 mcg/actuation 2 puff inhalation Q6H PRN 05/30/23 01/21/24 Rx aerosol inhaler Shortness Of Breath #18 grams amiodarone 100 mg tablet 100 mg PO QAM #30 tabs 06/06/23 01/21/24 Rx buspirone 5 mg tablet 5 mg PO TID PRN anxiety #60 tabs 06/28/23 01/21/24 Rx insulin glargine 100 unit/mL (3 See Rx Instructions subcut BID #30 08/01/23 01/21/24 Rx mL) subcutaneous pen (Basaglar mL KwikPen U-100 Insulin) insulin syringe-needle U-100 1 mL #200 ea 08/20/23 01/11/24 Rx 31 gauge x 5/16" (BD Insulin Syringe Ultra-Fine) Saccharomyces boulardii [Daily See Rx Instructions .Route .COMPLEX 08/21/23 01/21/24 History Probiotic (S. boulardii)] bumetanide 2 mg tablet 2 mg PO BID #120 tabs 09/07/23 01/21/24 Rx levothyroxine 50 mcg tablet See Rx Instructions .Route 09/07/23 01/21/24 Rx .COMPLEX #90 tabs triamcinolone acetonide 0.1 % 1 applic topical BID #30 grams 09/12/23 01/21/24 Rx topical cream apremilast 30 mg tablet (Otezla) 30 mg PO QAM #30 tabs 09/24/23 01/21/24 Rx amlodipine 5 mg tablet 5 mg PO QAM #30 tabs 10/01/23 01/21/24 Rx atorvastatin 40 mg tablet (Lipitor) 40 mg PO QAM #90 tabs 11/12/23 01/21/24 Rx empagliflozin 10 mg tablet 10 mg PO QAM 30 days #30 tabs 11/16/23 01/21/24 Rx (Jardiance) insulin lispro 100 unit/mL See Rx Instructions .Route 11/22/23 01/21/24 Rx subcutaneous solution (Admelog U-) .COMPLEX #40 mL magnesium chloride 64 mg 64 mg PO BID #180 tabs 11/26/23 01/21/24 Rx (magnesium chloride) tablet,delayed release irbesartan 150 mg tablet 150 mg PO QAM #30 tabs 12/06/23 01/21/24 Rx warfarin 5 mg tablet 5 mg PO DAILY #100 tabs 12/10/23 01/21/24 Rx calcitriol 0.5 mcg capsule 0.5 mcg PO 3XWK #36 caps 12/21/23 01/21/24 Rx ezetimibe 10 mg tablet 10 mg PO QAM #90 tabs 01/04/24 01/21/24 Rx fluconazole 150 mg tablet 150 mg PO Q48H 14 days #7 tabs 01/11/24 01/21/24 Rx nystatin 100,000 unit/gram topical 1 applic topical BID PRN itching 01/11/24 01/21/24 Rx powder #60 grams Allergies Allergy/AdvReac Type Severity Reaction Status Date / Time amoxicillin Allergy Severe SOB, RASH Verified 01/11/24 13:47 Penicillins Allergy Severe SOB, RASH Verified 01/11/24 13:47 clarithromycin Allergy Intermediate "feels Verified 01/11/24 13:47 like flying high" clindamycin Allergy Intermediate "feels Verified 01/11/24 13:47 like flying high" fluconazole Allergy Intermediate "feels Verified 01/11/24 13:47 like flying high" sulfamethoxazole Allergy Intermediate "feels Verified 01/11/24 13:47 like flying high" trimethoprim Allergy Intermediate "feels Verified 01/11/24 13:47 like flying high" Bactrim Allergy Unknown UNKNOWN Verified 02/21/18 10:32 codeine AdvReac Mild ITCHING, Verified 01/11/24 13:47 NAUSEA Past Med/Surg History Medical History On home oxygen therapy uses 2L O2 at night w/cpap and in the daytime prn Diabetic neuropathy Hx of gastric ulcer Depression Sleep apnea CPAP Anemia of chronic disease Stage 3b chronic kidney disease Iron deficiency anemia Secondary hyperparathyroidism of renal origin Spinal stenosis of lumbar region Chronic pain of left knee DJD Osteoarthritis Degenerative disc disease Spinal stenosis Hypothyroidism Diabetes mellitus, type 2 On anticoagulant therapy COUMADIN DAILY Hypertension Hyperlipidemia Atrial flutter hx of Chronic obstructive pulmonary disease inhaler prn Obesity Diastolic CHF Atrial fibrillation Paroxysmal. Cardioversion x 2. follows with Dr. Rapp---on coumadin. TIA (transient ischemic attack) (07/14/14) ? DETAILS OR CONFIRMATION ON EVENT PER PATIENT>pt stated she never remembers this happening Surgical History Family history of reaction to anesthesia FATHER>NAUSEA AND DIZZINESS History of nasal cauterization History of colonoscopy with polypectomy Nausea and vomiting after administration of anesthetic agent WITH "EXTREME VERTIGO" History of total hysterectomy with bilateral salpingo-oophorectomy (BSO) History of lumpectomy of right breast benign History of carpal tunnel surgery of left wrist History of tooth extraction most teeth removed--full upper denture/partial lower History of cardioversion x2, [facility] Family History Sister Family history of reaction to anesthesia nausea/vomiting Hypothyroidism Father Family history of reaction to anesthesia nausea/vomiting Family hx colonic polyps Hypertension Mother Diabetes Hypertension Denies family history of Ovarian cancer Prostate cancer Myocardial infarction Breast cancer Colorectal cancer Social History Smoking Status: Unknown if ever smoked Age Started Using Tobacco: 20; Age Quit Using Tobacco: 60; packs per day: 1; Second Hand Exposure: No; Do You Dip or Chew Tobacco: No; Tobacco Cessation Education Requested by Patient: No Hx Alcohol Use: No Hx Substance Use: No Preferred Language: Brazilian Communication Ability: Effective Visual Impairment: Limited Hearing Ability: Hard of Hearing Medical Authorization Specialist Required: No Beliefs That Will Affect Care: None marital status: Single Current Living Situation: Family Current Living Situation Comment: BROTHER AND FATHER current occupational status: retired How many Children do You have: 0 Other Information That Helps Us Care for You: No Feels Safe at Home: Yes Safety Concerns: Feels Safe At This Time Diet: regular during the past year weight has: remained stable Dental Care, Regularly: No Physical Activity Frequency: Does not Exercise Seatbelt Use: always Assistive Devices: CPAP and Wheelchair Physical Exam 2 Vital Signs: Vital Signs - 24 hr 01/21/24 09:32 01/21/24 09:40 01/21/24 10:10 Temperature 36.0 C L Temperature Source Temporal Artery Sc an Pulse Rate 60 58 L Pulse Rate [Apical ] Pulse Rhythm Regular Pulse Strength Normal Respiratory Rate 20 22 Respiratory Effort / Characteristics Non-Labored Sponta neous Non-Labored Respiratory Depth Normal Normal Respiratory Patter n Regular Regular Blood Pressure 167/80 H Blood Pressure [Le ft Arm] 125/67 Blood Pressure Christina n 109 Blood Pressure Christina n [Left Arm] 86 Blood Pressure Pos ition Sitting Blood Pressure Pos ition [Left Arm] Sitting Pulse Oximetry 93 89 L Oxygen Delivery Me thod Room Air Room Air Oxygen Flow Rate Sepsis Recent Feve r Within 48 Hours No Sepsis New/Unexpla ined Change in Men ava Status No Sepsis Action Take n by Nursing No Action Required 01/21/24 10:24 04/01/24 11:05 Temperature Temperature Source Pulse Rate Pulse Rate [Apical ] 54 L Pulse Rhythm Pulse Strength Respiratory Rate 20 Respiratory Effort / Characteristics Non-Labored Respiratory Depth Normal Respiratory Patter n Blood Pressure Blood Pressure [Le ft Arm] 110/47 L Blood Pressure Christina n Blood Pressure Christina n [Left Arm] 68 Blood Pressure Pos ition Blood Pressure Pos ition [Left Arm] Pulse Oximetry 98 95 Oxygen Delivery Me thod Room Air Nasal Cannula Oxygen Flow Rate 2 Sepsis Recent Feve r Within 48 Hours Sepsis New/Unexpla ined Change in Men ava Status Sepsis Action Take n by Nursing Physical Exam: Physical Exam HENT: Exam performed. -Head: Normocephalic and atraumatic. -Right Ear: External ear normal. No mastoid erythema -Left Ear: External ear normal. No mastoid erythema -Mouth/Throat: The oropharynx is clear and moist. No trismus in the jaw. No dental abscesses or uvula swelling. No oropharyngeal exudate or tonsillar abscesses. EYES: Conjunctivae and EOM are normal. Pupils are equal, round, and reactive to light. Right eye exhibits no discharge. Left eye exhibits no discharge. No scleral icterus. NECK: Normal range of motion. Neck supple. No JVD present. CV: Normal rate, regular rhythm, normal heart sounds and intact distal pulses. Palpable radial pulses bue. PULM/CHEST: Effort normal and breath sounds normal. No respiratory distress. No stridor. She has no wheezes. She has no rales. ABD: The abdomen is soft. Patient is morbidly obese. There is no tenderness. There is no rebound, no guarding Rectal: Rectal exam performed with female nursing audit clerk Elina at bedside. Melanotic stool Hemoccult positive. NEURO: Motor and sensation grossly intact. Course Course 0935: The patient was evaluated in room B12. A complete history and physical exam was performed Cardiac monitoring: An order was placed for continuous cardiac monitoring. The monitor shows a rate of 60 with sinus rhythm interpreted by me Patient has melanotic stools and had a recently elevated INR. Patient be started on Protonix bolus and drip. 1125: Vital signs stable. Labs show hemoglobin 9.3 down from 10 4 days ago. INR 3.9. Potassium 5.4. Creatinine 2.34 at baseline. Patient will be admitted to the hospital service for GI bleed. Administered Medications Insulin Aspart (Insulin Aspart Per Unit Charge) 0 units SC ACHS [place] Stop: 02/20/24 16:29 Last Admin: 01/21/24 17:20 Dose: Not Given Documented By: ALTAGRACIA Insulin Glargine (Lantus Per Unit Charge) 20 units SQ BID [facility] Stop: 02/20/24 12:29 Last Admin: 01/21/24 13:03 Dose: 20 units Documented By: ALTAGRACIA Co-signed By: GUS Miscellaneous (Tacrolimus 0.1% Ointment--Order Awaiting Action) 1 each N/A QS [place] Stop: 02/20/24 15:59 Last Admin: 01/21/24 15:15 Dose: 1 each Documented By: ALTAGRACIA Discontinued Medications Sodium Chloride (Nss) 500 mls @ 125 mls/hr IV .Q4H [facility] Stop: 02/20/24 09:44 Last Infusion: 01/21/24 17:03 Dose: Infused Documented By: Admin: 01/21/24 13:02 Dose: 125 mls/hr Documented By: Infusion: 01/21/24 11:59 Dose: Infused Documented By: Admin: 01/21/24 09:50 Dose: 125 mls/hr Documented By: ALTAGRACIA Pantoprazole Sodium 80 mg/ (Dextrose) 120 mls @ 480 mls/hr IV NOW ONE Stop: 01/21/24 11:35 Last Infusion: 01/21/24 12:17 Dose: Infused Documented By: Admin: 01/21/24 11:58 Dose: 480 mls/hr Documented By: ALTAGRACIA Pantoprazole Sodium 40 mg/ (Dextrose) 100 mls @ 20 mls/hr IV Q5H [facility] Stop: 02/20/24 11:44 Last Infusion: 01/21/24 17:03 Dose: Infused Documented By: Admin: 01/21/24 11:59 Dose: 8 mg/hr, 20 mls/hr Documented By: ALTAGRACIA Bumetanide 2 mg/ Syringe 8 mls @ 4 mls/min IV ONE ONE Stop: 01/21/24 12:46 Last Admin: 01/21/24 13:38 Dose: 4 mls/min Documented By: ALTAGRACIA Medical Decision Making Medical Records Attestation: I reviewed the patient's medical records. External medical records reviewed. Patient was seen in the emergency department on January 17, 2024. At that time her INR was greater than 9.5. Patient was given IV vitamin K and told to hold her Coumadin. Laboratory Data 01/21/24 12:36 01/21/24 09:46 Lab Results 01/21/24 Range/Units 09:46 WBC 5.88 (4.8-10.8) K/ul RBC 3.04 L (4.20-5.40) M/uL Hgb 9.3 L (12.0-16.0) g/dl Hct 30.3 L (37.0-47.0) % MCV 99.7 (80.0-100.0) fL MCH 30.6 (25.0-34.0) pg MCHC 30.7 L (32.0-36.0) g/dL RDW Std Deviation 69.5 H (36.4-46.3) fL RDW Coeff of Shannan 19.2 H (11.5-14.5) % Plt Count 205 (130-400) K/uL MPV 10.9 (9.4-12.4) fL Immature Gran % (Auto) 1.2 % Neut % (Auto) 61.4 % Lymph % (Auto) 24.5 % Newton % (Auto) 9.0 % Eos % (Auto) 3.4 % Baso % (Auto) 0.5 % Neut # (Auto) 3.61 (1.40-6.50) K/uL Lymph # (Auto) 1.44 (1.20-3.40) K/uL Newton # (Auto) 0.53 (0.11-0.59) K/uL Eos # (Auto) 0.20 (0.00-0.50) K/uL Baso # (Auto) 0.03 (0.00-0.20) K/uL Immature Gran # (Auto) 0.07 (0.01-0.20) K/uL Absolute Nucleated RBC 0.05 (0.00-0.12) K/uL Nucleated RBC % (auto) 0.9 % PT 39.2 H (9.0-12.0) Seconds INR 3.9 H (0.9-1.1) APTT 52 H (21-31) Seconds PTT Ratio 1.8 Sodium 140 (136-145) mmol/L Potassium 5.4 H (3.5-5.1) mmol/L Chloride 101 (98-107) mmol/L Carbon Dioxide 35 H (21-32) mmol/L Anion Gap 4 (3-11) BUN 65 H (6-23) mg/dl Creatinine 2.34 H (0.6-1.2) mg/dl Est Cr Clr Drug Dosing 35.0 ml/min Est GFR ( Amer) 24.0 ml/min Est GFR (Non-Af Amer) 20.7 ml/min BUN/Creatinine Ratio 27.8 H (10-20) Glucose 107 H (70-99(Fasting)) mg/dl Calcium 9.8 (8.6-10.3) mg/dl Magnesium 3.1 H (1.7-2.4) mg/dl Total Bilirubin 0.4 (0.2-1.0) mg/dl Direct Bilirubin TNP AST 29 (13-39) U/L ALT 15 (7-52) U/L Alkaline Phosphatase 100 (34-104) U/L Total Protein 7.6 (6.0-8.3) gm/dl Albumin 3.7 (3.4-5.0) gm/dl Lipase 75 (11-82) U/L Blood Type A Negative Antibody Screen NEGATIVE Imaging Data Attestation: I personally reviewed and interpreted this imaging study as follows: My Impression: Chest x-ray: Cardiomegaly with cephalization Radiologist's Impression: Chest X-Ray 01/21/24 11:27 XR chest 1V portable HISTORY: 68 years-old Female hx chf acute shortness of breath COMPARISON: 05/03/2022 TECHNIQUE: AP view the chest FINDINGS: Cardiac silhouette is enlarged. Pulmonary vascular congestion with interstitial coarsening. No pneumothorax or large pleural effusion. Mild bibasilar opacities. Degenerative changes of the shoulders and spine. IMPRESSION: Cardiomegaly with pulmonary vascular congestion and interstitial coarsening suggestive of pulmonary edema. ACT 112: Negative or not required by law. The above report was generated using voice recognition software. It may contain grammatical, syntax or spelling errors. Electronically signed by: Chan Luther M.D. 01/21/2024 12:10 PM ECG Data Attestation: I personally reviewed and interpreted this ECG as follows: Indication: bradycardia Rate (beats per minute): 57 Rhythm: normal sinus Findings: + 1st degree AV block; no ST depression, no ST elevation or no prolonged QT [facility] Narrative 0935: The patient was evaluated in room B12. A complete history and physical exam was performed Cardiac monitoring: An order was placed for continuous cardiac monitoring. The monitor shows a rate of 60 with sinus rhythm interpreted by me Patient has melanotic stools and had a recently elevated INR. Patient be started on Protonix bolus and drip. 1125: Vital signs stable. Labs show hemoglobin 9.3 down from 10 4 days ago. INR 3.9. Potassium 5.4. Creatinine 2.34 at baseline. Patient will be admitted to the hospital service for GI bleed. Impression & Plan GI bleed, Elevated INR Discharge Plan Visit Data Chief Complaint: Rectal Bleed Stated Complaint: BLOOD IN STOOL ED Provider: Kervin Hirsch Discharge Problem: GI bleed, Elevated INR Patient Disposition: Admitted As Inpatient Discharge Instructions Interventions: ED Discharge Assessment Last Done: 01/21/24 12:43
[2024-01-21 10:18] LABS: INR 3.9 (0.9-1.1); Partial Thromboplastin Ratio 1.8; Partial Thromboplastin Time 52 Seconds (21-31); Prothrombin Time 39.2 Seconds (9.0-12.0)
[2024-01-21 10:37] LABS: Alanine Aminotransferase 15 U/L (7-52); Albumin Level 3.7 gm/dl (3.4-5.0); Alkaline Phosphatase 100 U/L (34-104); Anion Gap 4 (3-11); Aspartate Aminotransferase 29 U/L (13-39); BUN Creatinine Ratio 27.8 (10-20); Bilirubin,Total 0.4 mg/dl (0.2-1.0); Blood Urea Nitrogen 65 mg/dl (6-23); Calcium 9.8 mg/dl (8.6-10.3); Carbon Dioxide 35 mmol/L (21-32); Chloride 101 mmol/L (98-107); Est GFR (Non-African American) 20.7 ml/min; Glucose 107 mg/dl (70-99(Fasting)); Lipase 75 U/L (11-82); Magnesium 3.1 mg/dl (1.7-2.4); Potassium 5.4 mmol/L (3.5-5.1); Sodium 140 mmol/L (136-145); Total Protein 7.6 gm/dl (6.0-8.3)
--- NOTE | 2024-01-21 11:27 | History & Physical Report ---
Date of Service January 21, 2024 Assessment & Plan (1) Melena: Plan: Melena, hematochezia With supratherapeutic INR of 9.5 without hemodynamically significant bleeding which was treated with vitamin K at the time, INR on admission 3.9. Warfarin held. INR trended. If recurrent bleeding/downtrending hgb on repeat --> +2.5mg VitK Last EGD 07/2023 for melena. At that time mild stomach erythema consistent with gastritis were noted, esophagus was normal, no ulcerations were noted Received 500 cc NSS in ER, Protonix bolus and drip started. transitioned to PPI push twice daily GI consulted - NPO. All oral meds held until diet advanced. IV metoprolol held due to b radycardia, will follow on PCU (2) Stage 3b chronic kidney disease: Plan: CKD 3 Baseline creatinine approximately 1.9- .0, creatinine is 2.34 with potassium 5.4 on admission - Clincally volume up with pulm congestion/edema. --> Bumex IV ordered ? With colloid losses with melena concern for GI bleed ARB held for intermittent borderline hypotension and while NPO Continue calcitriol 0.5 mcg 3 times weekly once no longer NPO Trend daily, renally dose medications as needed Avoid NSAIDs (3) Hyperkalemia: Plan: Hyperkalemia No peaked T waves on admission, mild at 5.4 Received fluids as noted, BMP repeated every 4 hours Bumex ordered. Clinically with pulmonary congestion/edema and ADA (4) Chronic diastolic CHF (congestive heart failure): Plan: Acute on Chronic diastolic CHF EKG sinus bradycardia with first-degree AV block, QTc 490 Last EKG 10/2022 with EF 60 to 65%, no regional wall motion abnormalities Follows with heart failure clinic. Was relatively euvolemic 01/02, was continued on low-sodium diet and to trend sodium; Bumex was continued at 2 mg twice daily with PRN insrease to 4 mg. Patient did not tolerate spironolactone due to hyperkalemia - CXR with evidence of CHF, clinically with mild JVD and +ADA. Bumex IV ordered. Bed weight 162 kg, baseline weight appears approximately 150-154 kg Resume zetia/statin when no longer npo - Metoprolol held for charanjit, resume dose reduced if normalizes. Followed on pcu Irbesartan held for intermittent borderline hypotension and while NPO Lower extremity edema With history of secondary lymphedema, chronic venous stasis, and CHF S/p bilateral GSV ablation 2021 - as noted (5) Atrial fibrillation: Plan: Atrial fibrillation Continue amiodaroneonce no longer NPO, MTP as noted. Sinus on admit Patient is on warfarin for stroke prophylaxis. Held while NPO and supratherapeutic, goal 2-3 Follows with [facility] coagulation clinic (6) Hypertension: Plan: Hypertension Recently with relatively good control, although amlodipine potentially contributing to lower extremity edema. Intolerant of spironolactone due to hyperkalemia - Intermittent hypotension on admit, clinically with evidence of volume overload. H&H trended for GIB, trend but currently +/- 1g/dL of normal range (7) CONSTANCE (obstructive sleep apnea): Plan: CONSTANCE/OHS CPAP nightly (8) Type 2 diabetes mellitus with renal complication: Plan: Type II DM SGLT2i tx discontinued due to infections, patient intolerant of GLP-1 Continue Lantus 25 units twice daily, dose reduced while NPO - SSI basal based Plan DVT prophylaxis: Pharmacal prophylaxis deferred due to GI bleed. SCDs Disposition: Medical telemetry for GI bleed, history of CHF/A-fib CODE STATUS: Full code Diet: Strict n.p.o. History of Present Illness Primary Care Provider: DO Iveth Evans is a 68-year-old female with past medical history of A-fib on warfarin, CKD 3, type II DM, chronic diastolic CHF, COPD, hypertension, hypothyroidism, psoriasis, intertrigo, and obesity with hypoventilation syndrome who presents to the ER after being seen 5 days ago for supratherapeutic INR treated with vitamin K and who comes in with dyspnea, melena, and hematochezia. Currently seen at the bedside. She is a slightly limited historian of her medications, notes she only took her levothyroxine this morning. Has been taking her warfarin since her prior discharge. She reports that her bowel movements are normally very dark black and sometimes sticky since she has been on an iron supplement and this has not changed however in the last 2 days she has had bright red and maroon blood mixed into her bowel movements. She does not have any abdominal or epigastric pain. She denies lightheadedness dizziness, chest pain, chest pressure syncope and falls. She reports that she has a history of CHF and she thinks her fluid levels are relatively normal for her, she has chronic pitting edema and venous stasis changes in her lower extremities bilaterally but feels her legs are about their normal baseline, and while she normally has orthopnea due to her weight she has not had any increased orthopnea or oxygen requirement. She uses 2 L of oxygen as needed during the daytime and at night with CPAP. She denies increased salt intake, has been eating little bit less. She reports she has been taking her Bumex every day as directed, last took this yesterday evening. She denies other symptoms and denies infectious symptoms. She has not had fever, chills, sweats, lightheadedness, dizziness, or dysuria. She reports she does have some vaginal itching as she had a labial biopsy taken and is pending follow-up with dermatology. There is no bleeding from the site at time of admission. Pathology from this reviewed, chronic spongiotic dermatitis differential including irritant dermatitis, atopic dermatitis, allergic, and seborrheic dermatitis and she is pending follow-up with dermatology. No evidence of infection, while she says this did initially bleed a little bit if she scratched it there is no bleeding at time of admission and she reports the bleeding and her bowel movements are completely different from this Medical History: Reviewed Medications: Reviewed Surgical History: Reviewed Family history: Reviewed Allergies: Reviewed Social History: INtermittent social wine use. No tobacco Code Status: DNR/DNI Allergies Allergy/AdvReac Type Severity Reaction Status Date / Time amoxicillin Allergy Severe SOB, RASH Verified 01/11/24 13:47 Penicillins Allergy Severe SOB, RASH Verified 01/11/24 13:47 clarithromycin Allergy Intermediate "feels Verified 01/11/24 13:47 like flying high" clindamycin Allergy Intermediate "feels Verified 01/11/24 13:47 like flying high" fluconazole Allergy Intermediate "feels Verified 01/11/24 13:47 like flying high" sulfamethoxazole Allergy Intermediate "feels Verified 01/11/24 13:47 like flying high" trimethoprim Allergy Intermediate "feels Verified 01/11/24 13:47 like flying high" Bactrim Allergy Unknown UNKNOWN Verified 02/21/18 10:32 codeine AdvReac Mild ITCHING, Verified 01/11/24 13:47 NAUSEA Home Medications Medication Instructions Recorded Confirmed Type meclizine 12.5 mg tablet 12.5 mg PO TID PRN Dizziness 10 09/26/16 01/21/24 History days #30 tabs Wheelchair (Manual) (Manual #1 ea 08/04/21 01/11/24 Rx Wheelchair) pen needle, diabetic 31 gauge x #200 ea 10/09/22 01/11/24 Rx 3/16" (BD Ultra-Fine Mini Pen Needle) [id number] 8 mg-folic 400 1 tab PO QAM 12/27/22 01/21/24 History mcg-K 50 mcg-lutein 300 mcg tablet (Centrum Silver Women) acetaminophen 500 mg capsule 1,000 mg PO HS PRN Pain 01/05/23 01/21/24 History ferrous sulfate 325 mg (65 mg 325 mg PO QAM 01/05/23 01/21/24 History iron) tablet betamethasone dipropionate 0.05 % 1 applic topical BID #45 grams 01/15/23 01/21/24 Rx topical ointment Oxygen Home E0424 #1 ea 01/19/23 01/11/24 Rx metoprolol tartrate 50 mg tablet 50 mg PO BID #180 tabs 02/12/23 01/21/24 Rx tacrolimus 0.1 % topical ointment 1 applic topical BID #30 grams 03/26/23 01/21/24 Rx albuterol sulfate 90 mcg/actuation 2 puff inhalation Q6H PRN 05/30/23 01/21/24 Rx aerosol inhaler Shortness Of Breath #18 grams amiodarone 100 mg tablet 100 mg PO QAM #30 tabs 06/06/23 01/21/24 Rx buspirone 5 mg tablet 5 mg PO TID PRN anxiety #60 tabs 06/28/23 01/21/24 Rx insulin glargine 100 unit/mL (3 See Rx Instructions subcut BID #30 08/01/23 01/21/24 Rx mL) subcutaneous pen (Basaglar mL KwikPen U-100 Insulin) insulin syringe-needle U-100 1 mL #200 ea 08/20/23 01/11/24 Rx 31 gauge x 5/16" (BD Insulin Syringe Ultra-Fine) Saccharomyces boulardii [Daily See Rx Instructions .Route .COMPLEX 08/21/23 01/21/24 History Probiotic (S. boulardii)] bumetanide 2 mg tablet 2 mg PO BID #120 tabs 09/07/23 01/21/24 Rx levothyroxine 50 mcg tablet See Rx Instructions .Route 09/07/23 01/21/24 Rx .COMPLEX #90 tabs triamcinolone acetonide 0.1 % 1 applic topical BID #30 grams 09/12/23 01/21/24 Rx topical cream apremilast 30 mg tablet (Otezla) 30 mg PO QAM #30 tabs 09/24/23 01/21/24 Rx amlodipine 5 mg tablet 5 mg PO QAM #30 tabs 10/01/23 01/21/24 Rx atorvastatin 40 mg tablet (Lipitor) 40 mg PO QAM #90 tabs 11/12/23 01/21/24 Rx empagliflozin 10 mg tablet 10 mg PO QAM 30 days #30 tabs 11/16/23 01/21/24 Rx (Jardiance) insulin lispro 100 unit/mL See Rx Instructions .Route 11/22/23 01/21/24 Rx subcutaneous solution (Admelog U-) .COMPLEX #40 mL magnesium chloride 64 mg 64 mg PO BID #180 tabs 11/26/23 01/21/24 Rx (magnesium chloride) tablet,delayed release irbesartan 150 mg tablet 150 mg PO QAM #30 tabs 12/06/23 01/21/24 Rx warfarin 5 mg tablet 5 mg PO DAILY #100 tabs 12/10/23 01/21/24 Rx calcitriol 0.5 mcg capsule 0.5 mcg PO 3XWK #36 caps 12/21/23 01/21/24 Rx ezetimibe 10 mg tablet 10 mg PO QAM #90 tabs 01/04/24 01/21/24 Rx fluconazole 150 mg tablet 150 mg PO Q48H 14 days #7 tabs 01/11/24 01/21/24 Rx nystatin 100,000 unit/gram topical 1 applic topical BID PRN itching 01/11/24 01/21/24 Rx powder #60 grams Past Med/Surg History Medical History On home oxygen therapy uses 2L O2 at night w/cpap and in the daytime prn Diabetic neuropathy Hx of gastric ulcer Depression Sleep apnea CPAP Anemia of chronic disease Stage 3b chronic kidney disease Iron deficiency anemia Secondary hyperparathyroidism of renal origin Spinal stenosis of lumbar region Chronic pain of left knee DJD Osteoarthritis Degenerative disc disease Spinal stenosis Hypothyroidism Diabetes mellitus, type 2 On anticoagulant therapy COUMADIN DAILY Hypertension Hyperlipidemia Atrial flutter hx of Chronic obstructive pulmonary disease inhaler prn Obesity Diastolic CHF Atrial fibrillation Paroxysmal. Cardioversion x 2. follows with Dr. Rapp---on coumadin. TIA (transient ischemic attack) (07/14/14) ? DETAILS OR CONFIRMATION ON EVENT PER PATIENT>pt stated she never remembers this happening Surgical History Family history of reaction to anesthesia FATHER>NAUSEA AND DIZZINESS History of nasal cauterization History of colonoscopy with polypectomy Nausea and vomiting after administration of anesthetic agent WITH "EXTREME VERTIGO" History of total hysterectomy with bilateral salpingo-oophorectomy (BSO) History of lumpectomy of right breast benign History of carpal tunnel surgery of left wrist History of tooth extraction most teeth removed--full upper denture/partial lower History of cardioversion , [facility] Family History Sister Family history of reaction to anesthesia nausea/vomiting Hypothyroidism Father Family history of reaction to anesthesia nausea/vomiting Family hx colonic polyps Hypertension Mother Diabetes Hypertension Denies family history of Ovarian cancer Prostate cancer Myocardial infarction Breast cancer Colorectal cancer Social History Smoking Status: Former smoker Age Started Using Tobacco: 20; Age Quit Using Tobacco: 60; packs per day: 1; Second Hand Exposure: Yes (hx); Do You Dip or Chew Tobacco: No; Hx Alcohol Use: Yes Alcohol type: beer and wine Alcohol Intake Frequency: Monthly or Less Alcohol Intake Frequency Comment: stated "once in a blue [place], but not often" Hx Substance Use: No Preferred Language: Turkmen Communication Ability: Effective Visual Impairment: Limited Hearing Ability: Hard of Hearing Computer Lab Aide Required: No Beliefs That Will Affect Care: None marital status: Single Current Living Situation: Parent and Family Current Living Situation Comment: BROTHER AND FATHER current occupational status: retired How many Children do You have: 0 Feels Safe at Home: Yes Diet: regular during the past year weight has: remained stable Dental Care, Regularly: No Physical Activity Frequency: Does not Exercise Seatbelt Use: always Assistive Devices: CPAP, Denture - Upper, Denture - Lower and Other Physical Exam Physical Exam: General: A&Ox3. NAD. Cooperative. HEENT: Atraumatic, normocephalic. Vision and hearing grossly intact Pulm: Diminished but without crackles, rales, wheezes. Symmetrical chest rise. On 2 L nasal cannula. No respiratory distress Cardiac: Distant, regular rate and rhythm intermittently bradycardic, soft SM. Radial pulses intact and symmetrical. JVD is not apparent however difficult exam due to body habitus Abdominal: Obese. nontender, nondistended, soft. BS present. Specifically no epigastric tenderness Ext: Warm. Lower extremities with chronic venous stasis hyperpigmentation bilaterally. 2+ pitting edema in the lower extremities bilaterally, Results & Data Results & Data Vital Signs (Past 12 Hours) Vital Signs Temp Pulse Pulse Resp BP BP Pulse Ox 01/21/24 11:05 54 L 20 110/47 L 95 01/21/24 10:24 98 01/21/24 10:10 58 L 01/21/24 09:40 22 125/67 89 L 01/21/24 09:32 36.0 C L 60 20 167/80 H 93 O2 Del Method O2 Flow Rate 01/21/24 11:05 Nasal Cannula 2 01/21/24 10:24 Room Air 01/21/24 10:10 01/21/24 09:40 Room Air 01/21/24 09:32 Room Air PG Care Time/CCT Total # of Minutes Spent Total Time Spent with Patient: Total time spent is greater than 50% in coordination of care (as documented) at patient's floor/unit and/or counseling patient: Coding Level of Care Code 23782 INT INP/OBS CARE 3/75MIN Diagnoses Melena K92.1 Stage 3b chronic kidney disease N18.32 Hyperkalemia E87.5 Chronic diastolic CHF (congestive heart failure) I50.32 Atrial fibrillation I48.91 Hypertension I10 CONSTANCE (obstructive sleep apnea) G47.33 Type 2 diabetes mellitus with renal complication E11.29
[2024-01-21] MEDS: PANTOprazole 80 MG in DEXTROSE 5% 100 ML IV ONE (11:58)
[2024-01-21] MEDS: PANTOPRAZOLE BOLUS/DRIP IV STA (11:59)
[2024-01-21] MEDS: PANTOprazole 40 MG in DEXTROSE 5% MINI-B 100 ML IV SCH (11:59)
--- NOTE | 2024-01-21 12:11 | XRay Report ---
XR chest 1V portable HISTORY: 68 years-old Female hx chf acute shortness of breath COMPARISON: 05/03/2022 TECHNIQUE: AP view the chest FINDINGS: Cardiac silhouette is enlarged. Pulmonary vascular congestion with interstitial coarsening. No pneumo thorax or large pleural effusion. Mild bibasilar opacities. Degenerative changes of the shoulders and spine. IMPRESSION: Cardiomegaly with pulmonary vascular congestion and interstitial coarsening suggestive of pulmonary edema. ACT 112: Negative or not required by law. The above report was generated using voice recognition software. It may contain grammatical, syntax o r spelling errors. Electronically signed by: Chan Luther M.D. 01/21/2024 12:10 PM
[2024-01-21] MEDS ORDERED: GLUCAGON FOR INJ 1 MG VIAL SQ PRN (12:28)
[2024-01-21] MEDS ORDERED: GLUCOSE 10 TAB/TUBE PO PRN (12:28)
[2024-01-21] MEDS ORDERED: GLUCOSE 40% GEL 15 GM TUBE PO PRN (12:28)
[2024-01-21] MEDS ORDERED: CARBOHYDRATES FOR HYPOGLYCEMIA PO PRN (12:28)
[2024-01-21] MEDS ORDERED: DEXTROSE 50% 50 ML SYRINGE IV PRN (12:28)
[2024-01-21] MEDS ORDERED: NYSTATIN POWDER 15GM BTL EXT PRN (12:46)
[2024-01-21] MEDS ORDERED: ALBUTEROL HFA 8 GM INHALER INH PRN (12:46)
[2024-01-21 12:58] LABS: Hematocrit (blood only) 29.4 % (37.0-47.0); Hemoglobin 8.6 g/dl (12.0-16.0)
[2024-01-21] MEDS: LANTUS PER UNIT CHARGE SQ SCH (13:03)
[2024-01-21] MEDS ORDERED: SODIUM CHLORIDE 0.9% 250 ML IV PRN (13:13)
[2024-01-21] MEDS: BUMETANIDE 2 MG in SYRINGE 0 ML IV ONE (13:38)
--- NOTE | 2024-01-21 13:52 | Gastrointestinal Consultation ---
Date of Consultation January 21, 2024 Assessment & Plan (1) Elevated INR: (2) Hematochezia: Plan Patient with GI bleeding in the setting of supratherapeutic INR. Baseline hgb in the [address] range[address] Discuss[address] case with Dr. Payan who also saw and examined patient. - Suspect that she should improve as her INR trends down. - continue to monitor hgb/hct. transfuse as needed. - continue with protonix 40mg IV bid. - recommend conservative management at this time. Supervising Physician Co-Signing Physician Notes Agree with MARLYN Flores as above Gen: Chronic ill-appearing Abd: Soft, NT, ND, +BS Continue current therapy and supportive care Continue to hold Coumadin Consider colonoscopy if patient continues to have bleeding when INR normalizes. History of Present Illness Reason for Consultation: GIB Requesting Physician: Merlin Hickey MD Attending Physician: Merlin Hickey MD History of Present Illness Patient is an 68 year old female with past medical history of A-fib on warfarin, CKD 3, type II DM, chronic diastolic CHF, COPD, hypertension, hypothyroidism, psoriasis, intertrigo, and obesity with hypoventilation syndrome who presented to the ER after being seen 5 days ago for supratherapeutic INR treated with vitamin K and who has complaints of maroon stools. she tells me that she first started noticing this a few days ago. Prior to this, stools were dark, but were consistent with her normal consistency given oral iron use. GI ros otherwise unremarkable. 01/17/24 INR 9.5. She did receive some vit K as outpatient. 01/21/24 INR 3.9. hgb 9.3. EGD 07/30/2023 Gastritis. h pylori negative. Colonoscopy 01/11/23 multiple colonic angiodysplastic lesions treated with APC. multiple colon polyps. diverticulosis. Allergies Allergy/AdvReac Type Severity Reaction Status Date / Time amoxicillin Allergy Severe SOB, RASH Verified 01/11/24 13:47 Penicillins Allergy Severe SOB, RASH Verified 01/11/24 13:47 clarithromycin Allergy Intermediate "feels Verified 01/11/24 13:47 like flying high" clindamycin Allergy Intermediate "feels Verified 01/11/24 13:47 like flying high" fluconazole Allergy Intermediate "feels Verified 01/11/24 13:47 like flying high" sulfamethoxazole Allergy Intermediate "feels Verified 01/11/24 13:47 like flying high" trimethoprim Allergy Intermediate "feels Verified 01/11/24 13:47 like flying high" Bactrim Allergy Unknown UNKNOWN Verified 02/21/18 10:32 codeine AdvReac Mild ITCHING, Verified 01/11/24 13:47 NAUSEA Home Medications Medication Instructions Recorded Confirmed Type meclizine 12.5 mg tablet 12.5 mg PO TID PRN Dizziness 10 09/26/16 01/21/24 History days #30 tabs Wheelchair (Manual) (Manual #1 ea 08/04/21 01/11/24 Rx Wheelchair) pen needle, diabetic 31 gauge x #200 ea 10/09/22 01/11/24 Rx 01/04" (BD Ultra-Fine Mini Pen Needle) ekuwoklr-zfan-oebt 8 mg-folic 400 1 tab PO QAM 12/27/22 01/21/24 History mcg-K 50 mcg-lutein 300 mcg tablet (Centrum Silver Women) acetaminophen 500 mg capsule 1,000 mg PO HS PRN Pain 01/05/23 01/21/24 History ferrous sulfate 325 mg (65 mg 325 mg PO QAM 01/05/23 01/21/24 History iron) tablet betamethasone dipropionate 0.05 % 1 applic topical BID #45 grams 01/15/23 01/21/24 Rx topical ointment Oxygen Home E0424 #1 ea 01/19/23 01/11/24 Rx metoprolol tartrate 50 mg tablet 50 mg PO BID #180 tabs 02/12/23 01/21/24 Rx tacrolimus 0.1 % topical ointment 1 applic topical BID #30 grams 03/26/23 01/21/24 Rx albuterol sulfate 90 mcg/actuation 2 puff inhalation Q6H PRN 05/30/23 01/21/24 Rx aerosol inhaler Shortness Of Breath #18 grams amiodarone 100 mg tablet 100 mg PO QAM #30 tabs 06/06/23 01/21/24 Rx buspirone 5 mg tablet 5 mg PO TID PRN anxiety #60 tabs 06/28/23 01/21/24 Rx insulin glargine 100 unit/mL (3 See Rx Instructions subcut BID #30 08/01/23 01/21/24 Rx mL) subcutaneous pen (Basaglar mL KwikPen U-100 Insulin) insulin syringe-needle U-100 1 mL #200 ea 08/20/23 01/11/24 Rx 31 gauge x 5/16" (BD Insulin Syringe Ultra-Fine) Saccharomyces boulardii [Daily See Rx Instructions .Route .COMPLEX 08/21/23 01/21/24 History Probiotic (S. boulardii)] bumetanide 2 mg tablet 2 mg PO BID #120 tabs 09/07/23 01/21/24 Rx levothyroxine 50 mcg tablet See Rx Instructions .Route 09/07/23 01/21/24 Rx .COMPLEX #90 tabs triamcinolone acetonide 0.1 % 1 applic topical BID #30 grams 09/12/23 01/21/24 Rx topical cream apremilast 30 mg tablet (Otezla) 30 mg PO QAM #30 tabs 09/24/23 01/21/24 Rx amlodipine 5 mg tablet 5 mg PO QAM #30 tabs 10/01/23 01/21/24 Rx atorvastatin 40 mg tablet (Lipitor) 40 mg PO QAM #90 tabs 11/12/23 01/21/24 Rx empagliflozin 10 mg tablet 10 mg PO QAM 30 days #30 tabs 11/16/23 01/21/24 Rx (Jardiance) insulin lispro 100 unit/mL See Rx Instructions .Route 11/22/23 01/21/24 Rx subcutaneous solution (Admelog U-) .COMPLEX #40 mL magnesium chloride 64 mg 64 mg PO BID #180 tabs 11/26/23 01/21/24 Rx (magnesium chloride) tablet,delayed release irbesartan 150 mg tablet 150 mg PO QAM #30 tabs 12/06/23 01/21/24 Rx warfarin 5 mg tablet 5 mg PO DAILY #100 tabs 12/10/23 01/21/24 Rx calcitriol 0.5 mcg capsule 0.5 mcg PO 3XWK #36 caps 12/21/23 01/21/24 Rx ezetimibe 10 mg tablet 10 mg PO QAM #90 tabs 01/04/24 01/21/24 Rx fluconazole 150 mg tablet 150 mg PO Q48H 14 days #7 tabs 01/11/24 01/21/24 Rx nystatin 100,000 unit/gram topical 1 applic topical BID PRN itching 01/11/24 01/21/24 Rx powder #60 grams Patient History Medical History On home oxygen therapy uses 2L O2 at night w/cpap and in the daytime prn Diabetic neuropathy Hx of gastric ulcer Depression Sleep apnea CPAP Anemia of chronic disease Stage 3b chronic kidney disease Iron deficiency anemia Secondary hyperparathyroidism of renal origin Spinal stenosis of lumbar region Chronic pain of left knee DJD Osteoarthritis Degenerative disc disease Spinal stenosis Hypothyroidism Diabetes mellitus, type 2 On anticoagulant therapy COUMADIN DAILY Hypertension Hyperlipidemia Atrial flutter hx of Chronic obstructive pulmonary disease inhaler prn Obesity Diastolic CHF Atrial fibrillation Paroxysmal. Cardioversion x 2. follows with Dr[address] Rapp---on coumadin. TIA (transient ischemic attack) (07/14/14) ? DETAILS OR CONFIRMATION ON EVENT PER PATIENT>pt stated she never remembers this happening Surgical History Family history of reaction to anesthesia FATHER>NAUSEA AND DIZZINESS History of nasal cauterization History of colonoscopy with polypectomy Nausea and vomiting after administration of anesthetic agent WITH "EXTREME VERTIGO" History of total hysterectomy with bilateral salpingo-oophorectomy (BSO) History of lumpectomy of right breast benign History of carpal tunnel surgery of left wrist History of tooth extraction most teeth removed--full upper denture/partial lower History of cardioversion , [facility] Family History Sister Family history of reaction to anesthesia nausea/vomiting Hypothyroidism Father Family history of reaction to anesthesia nausea/vomiting Family hx colonic polyps Hypertension Mother Diabetes Hypertension Denies family history of Ovarian cancer Prostate cancer Myocardial infarction Breast cancer Colorectal cancer Social History Smoking Status: Former smoker Age Started Using Tobacco: 20; Age Quit Using Tobacco: 60; packs per day: 1; Second Hand Exposure: Yes (hx); Do You Dip or Chew Tobacco: No; Hx Alcohol Use: Yes Alcohol type: beer and wine Alcohol Intake Frequency: Monthly or Less Alcohol Intake Frequency Comment: stated "once in a blue [place], but not often" Hx Substance Use: No Preferred Language: Georgian Communication Ability: Effective Visual Impairment: Limited Hearing Ability: Hard of Hearing Security Intelligence Analyst Required: No Beliefs That Will Affect Care: None marital status: Single Current Living Situation: Parent and Family Current Living Situation Comment: BROTHER AND FATHER current occupational status: retired How many Children do You have: 0 Feels Safe at Home: Yes Diet: regular during the past year weight has: remained stable Dental Care, Regularly: No Physical Activity Frequency: Does not Exercise Seatbelt Use: always Assistive Devices: CPAP, Denture - Upper, Denture - Lower and Other Review of Systems Review of Systems: All systems reviewed & are unremarkable except as noted in HPI & below Physical Exam Constitutional: WD/WN, vitals as above Respiratory: normal respiratory effort, lungs clear to auscultation Cardiovascular: RRR, no murmur, no edema Gastrointestinal (Abdomen): normal bowel sounds, soft, nontender, no hepatosplenomegaly Psychiatric: Orientation: alert and oriented x 3 Affect: euthymic affect Results & Data Vital Signs (Past 12 Hours) Vital Signs Temp Pulse Pulse Resp BP BP Pulse Ox 01/21/24 12:25 52 L 20 132/58 L 95 01/21/24 11:05 54 L 20 110/47 L 95 01/21/24 10:24 98 01/21/24 10:10 58 L 01/21/24 09:40 22 125/67 89 L 01/21/24 09:32 96.8 F L 60 20 167/80 H 93 O2 Del Method O2 Flow Rate 01/21/24 12:25 Nasal Cannula 2 01/21/24 11:05 Nasal Cannula 2 01/21/24 10:24 Room Air 01/21/24 10:10 01/21/24 09:40 Room Air 01/21/24 09:32 Room Air Coding Level of Care Code 70347 INT INP/OBS CARE 3/75MIN Diagnoses Elevated INR R79.1 Hematochezia K92.1
[2024-01-21] MEDS: INSULIN ASPART PER UNIT CHARGE SC SCH (17:20)
[2024-01-21 20:40] LABS: Hematocrit (blood only) 30.1 % (37.0-47.0); Hemoglobin 8.8 g/dl (12.0-16.0)
[2024-01-21] MEDS: PANTOprazole 40 MG in SYRINGE 0 ML IV SCH (21:37)
[2024-01-22 02:27] LABS: Basophils # (auto) 0.02 K/uL (0.00-0.20); Basophils % (auto) 0.4 %; Eosinophils # (auto) 0.19 K/uL (0.00-0.50); Eosinophils % (auto) 3.6 %; Hematocrit (blood only) 30.5 % (37.0-47.0); Hemoglobin 8.9 g/dl (12.0-16.0); Immature Granulocytes # (auto) 0.04 K/uL (0.01-0.20); Immature Granulocytes % (auto) 0.8 %; Lymphocytes # (auto) 1.14 K/uL (1.20-3.40); Lymphocytes % (auto) 21.4 %; Mean Corpuscular Hemoglobin 29.7 pg (25.0-34.0); Mean Corpuscular Hgb Conc 29.2 g/dL (32.0-36.0); Mean Corpuscular Volume 101.7 fL (80.0-100.0); Mean Platelet Volume 10.5 fL (9.4-12.4); Monocytes # (auto) 0.55 K/uL (0.11-0.59); Monocytes % (auto) 10.3 %; Neutrophils # (auto) 3.39 K/uL (1.40-6.50); Neutrophils % (auto) 63.5 %; Platelet Count 180 K/uL (130-400); RDW Coefficient of Variation 19.3 % (11.5-14.5); RDW Standard Deviation 70.3 fL (36.4-46.3); White Blood Count 5.33 K/ul (4.8-10.8)
[2024-01-22] MEDS ORDERED: D5W AND NSS 1,000 ML IV SCH (08:00)
[2024-01-22] MEDS: PHYTONADIONE 5 MG in DEXTROSE 5% 50 ML IV ONE (08:42)
[2024-01-22 08:48] LABS: INR 5.1 (0.9-1.1); Prothrombin Time 50.3 Seconds (9.0-12.0)
[2024-01-22] MEDS: LEVOTHYROXINE SODIUM 50 MCG TABLET PO SCH (08:49)
[2024-01-22] MEDS: AMIODARONE 200 MG TAB PO SCH (08:50)
[2024-01-22] MEDS: METOPROLOL TARTRATE 50 MG TAB PO SCH (08:51)
[2024-01-22] MEDS: BUMETANIDE 2 MG in SYRINGE 0 ML IV SCH (08:51)
[2024-01-22 08:59] LABS: Hemoglobin 9.2 g/dl (12.0-16.0)
[2024-01-22] MEDS ORDERED: BUMETANIDE 1 MG in SYRINGE 0 ML IV SCH (09:00)
[2024-01-22 09:01] LABS: Basophils # (auto) 0.03 K/uL (0.00-0.20); Basophils % (auto) 0.6 %; Eosinophils # (auto) 0.16 K/uL (0.00-0.50); Hematocrit (blood only) 31.8 % (37.0-47.0); Hemoglobin 9.3 g/dl (12.0-16.0); Immature Granulocytes # (auto) 0.04 K/uL (0.01-0.20); Immature Granulocytes % (auto) 0.8 %; Lymphocytes % (auto) 15.2 %; Mean Corpuscular Hemoglobin 29.7 pg (25.0-34.0); Mean Corpuscular Hgb Conc 29.2 g/dL (32.0-36.0); Mean Corpuscular Volume 101.6 fL (80.0-100.0); Mean Platelet Volume 10.7 fL (9.4-12.4); Monocytes # (auto) 0.54 K/uL (0.11-0.59); Monocytes % (auto) 10.3 %; Neutrophils # (auto) 3.68 K/uL (1.40-6.50); Neutrophils % (auto) 70.1 %; Platelet Count 195 K/uL (130-400); RDW Coefficient of Variation 19.3 % (11.5-14.5); RDW Standard Deviation 70.8 fL (36.4-46.3); Red Blood Count 3.13 M/uL (4.20-5.40); White Blood Count 5.25 K/ul (4.8-10.8)
[2024-01-22 09:11] LABS: Calcium 9.4 mg/dl (8.6-10.3); Potassium 4.7 mmol/L (3.5-5.1)
[2024-01-22 09:17] LABS: BUN Creatinine Ratio 25.5 (10-20); Creatinine Clr Calc Pharmacy 41.9 ml/min; Est GFR (African American) 30.5 ml/min; Est GFR (Non-African American) 26.3 ml/min
--- NOTE | 2024-01-22 11:03 | Gastroenterology Progress Note ---
Date of Service January 22, 2024 Assessment & Plan (1) Hematochezia: (2) Anemia: Plan Patient has had no further GI bleeding reported. INR is trending back upwards at 5.1. HGB stable at 8.9. no new GI concerns. - continue to monitor labs. transfuse as needed. - continue to monitor INR, may need further VIT K. - At this time, would recommend that colonoscopy be done as an outpatient. Admission and Anticipated Discharge Date Admission Date: January 21, 2024 Supervising Physician Co-Signing Physician Notes Agree with Rayshawn Bruce PAC as above Abd: Soft, NT, ND, +BS Continue current therapy and supportive care No BM's since her arrival INR remains elevated No plans for invasive workup at present Subjective No further bleeding noted per patient or nursing. She had one bowel movement since yesterday. stool was darker. hgb today stable at 8.9. INR increased to 5.1. rest of GI ros unremarkable. Review of Systems Review of Systems: All systems reviewed & are unremarkable except as noted in HPI & below Physical Exam Constitutional: WD/WN, vitals as above Respiratory: normal respiratory effort, lungs clear to auscultation Cardiovascular: RRR, no murmur, no edema Gastrointestinal (Abdomen): normal bowel sounds, soft, nontender, no hepatosplenomegaly Psychiatric: Orientation: alert and oriented x 3 Affect: euthymic affect Results & Data Results & Data Vital Signs (Past 12 Hours) Vital Signs Temp Pulse Resp BP Pulse Ox O2 Del Method O2 Flow Rate 01/22/24 07:34 98.4 F 65 21 147/71 H 94 Nasal Cannula 2 01/22/24 03:44 98.6 F 64 18 131/63 96 Nasal Cannula, CPAP 01/22/24 02:56 14 2 Coding Level of Care Code 21723 SUB INP/OBS CARE 11/15MIN Diagnoses Hematochezia K92.1 Anemia D64.9 Anemia type: unspecified type (2) Anemia Anemia type: unspecified type Qualified Code(s): D64.9 - Anemia, unspecified
[2024-01-22] MEDS: DICLOFENAC SOD 1% GEL 100 GM TUBE EXT SCH (14:45)
[2024-01-22] MEDS: FLUCONAZOLE 100 MG TAB PO SCH (14:45)
--- NOTE | 2024-01-22 14:58 | Hospitalist Progress Note ---
Date of Service January 22, 2024 Assessment & Plan (1) Melena: Plan: Melena present on admission. Suspected upper GI bleed. This may be due to supratherapeutic INR present on admission. She received vitamin K on admission for INR 9.5. Repeat INR this morning is 3.9. Vitamin K will be repeated until INR is normal. Coumadin has been discontinued. GI consult appreciated. She remains on Protonix intravenously twice daily. Conservative management for now. (2) Stage 3b chronic kidney disease: Plan: Acute on chronic kidney disease stage III. Creatinine has improved from 2.1 on admission down to 1.5. Monitor intake and output. Serial lab (3) Hyperkalemia: Plan: Mild on admission. Now improved. Serial labs. (4) Chronic diastolic CHF (congestive heart failure): Plan: Acute on Chronic diastolic CHF. Parenteral Bumex therapy. Monitor intake and output. Serial chest x-ray (5) Atrial fibrillation: Plan: Paroxysmal.. Currently sinus bradycardia. Metoprolol dosage decreased. Amiodarone restarted. Telemetry. Atrial fibrillation (6) Hypertension: Plan: Stable. Continue current medical management (7) Type 2 diabetes mellitus with renal complication: Plan: Currently on clear liquids. Will avoid basal insulin at this time until she is taking an ADA diet. Sliding scale coverage. Plan Anticipate eventual discharge to home in the next 48 to 72 hours if stable. Admission and Anticipated Discharge Date Admission Date: January 21, 2024 Subjective Alert and oriented. She appears to have acute on chronic diastolic CHF. INR is down to 3.9 from 9.5 on admission. This will be reversed completely. Another dose of intravenous vitamin K ordered today, January 21. Amiodarone and metoprolol have been restarted although the metoprolol dosage has been decreased due to bradycardia. Will repeat chest x-ray again tomorrow, January 22. Will discontinue basal Lantus therapy while only on clear liquids. She states she takes Diflucan at home and this has been restarted. GI consultation and recommendations appreciated. Review of Systems 2 Review of Systems: Constitutional-no fever or chills ENT-no blurred vision, no double vision, no epistaxis, no sore throat Respiratory-nonproductive cough. Wheezing at rest. No hemoptysis. Short of breath with minimal exertion Cardiac-no palpitations, no syncope. She complains of chest tightness at rest GI-no nausea, vomiting, diarrhea, melena, hematochezia -no urinary retention, no urinary incontinence, no dysuria, no hematuria Musculoskeletal-no joint pain, no muscle tenderness Skin-no bruising, no rashes, no pruritus Neuro-no isolated weakness, no paresthesia Psych-no depression, no anxiety Physical Exam 2 Physical Exam: General-alert and oriented x3, no fever, no chills. Morbidly obese HEENT-head atraumatic and normocephalic, pupils equal and reactive to light, extraocular muscles intact Neck-no lymphadenopathy or thyromegaly, trachea midline Chest-diminished breath sounds bilaterally with inspiratory bibasilar rales and expiratory wheezes. No dullness to percussion. i Cardiac-regular rate and rhythm, normal S1 and S2 Abdomen-normal bowel sounds, nontender, no hepatosplenomegaly Extremities-no cyanosis, clubbing. Chronic appearing mild bilateral lower extremity nonpitting edema Neuro-cranial nerves II through XII intact, motor and sensory function within normal limits, strength symmetrical, no focal deficits Psych-normal affect, normal mood Results & Data Results & Data Vital Signs (Past 12 Hours) Vital Signs Temp Pulse Pulse Resp BP Pulse Ox O2 Del Method 01/22/24 11:05 36.9 C 50 L 18 135/84 97 Nasal Cannula 01/22/24 10:00 48 L 01/22/24 08:00 Nasal Cannula 01/22/24 07:34 36.9 C 65 21 147/71 H 94 Nasal Cannula 01/22/24 03:44 37.0 C 64 18 131/63 96 Nasal Cannula, CPAP 01/22/24 02:56 14 O2 Flow Rate 01/22/24 11:05 2 01/22/24 10:00 01/22/24 08:00 2 01/22/24 07:34 2 01/22/24 03:44 01/22/24 02:56 2 Laboratory Results 01/22/24 08:21 01/22/24 08:21 PG Care Time/CCT Total # of Minutes Spent Total Time Spent with Patient: Total time spent is greater than 50% in coordination of care (as documented) at patient's floor/unit and/or counseling patient: Coding Level of Care Code 26008 SUB INP/OBS CARE 3/50MIN Diagnoses Melena K92.1 Stage 3b chronic kidney disease N18.32 Hyperkalemia E87.5 Chronic diastolic CHF (congestive heart failure) I50.32 Atrial fibrillation I48.91 Hypertension I10 Type 2 diabetes mellitus with renal complication E11.29
[2024-01-22] MEDS: ALBUT/IPRATROP 3MG/0.5MG NEB 3 ML VIAL NEB SCH (15:36)
[2024-01-22] MEDS: METOPROLOL TARTRATE 25 MG TAB PO SCH (21:08)
[2024-01-23 07:28] LABS: Basophils # (auto) 0.02 K/uL (0.00-0.20); Basophils % (auto) 0.3 %; Eosinophils # (auto) 0.16 K/uL (0.00-0.50); Eosinophils % (auto) 2.3 %; Hematocrit (blood only) 29.2 % (37.0-47.0); Hemoglobin 8.8 g/dl (12.0-16.0); Immature Granulocytes # (auto) 0.01 K/uL (0.01-0.20); Immature Granulocytes % (auto) 0.1 %; Lymphocytes # (auto) 1.26 K/uL (1.20-3.40); Lymphocytes % (auto) 17.8 %; Mean Corpuscular Hemoglobin 30.2 pg (25.0-34.0); Mean Corpuscular Hgb Conc 30.1 g/dL (32.0-36.0); Mean Corpuscular Volume 100.3 fL (80.0-100.0); Mean Platelet Volume 10.7 fL (9.4-12.4); Monocytes # (auto) 0.52 K/uL (0.11-0.59); Monocytes % (auto) 7.4 %; Neutrophils # (auto) 5.09 K/uL (1.40-6.50); Neutrophils % (auto) 72.1 %; Platelet Count 180 K/uL (130-400); RDW Coefficient of Variation 19.5 % (11.5-14.5); RDW Standard Deviation 70.3 fL (36.4-46.3); Red Blood Count 2.91 M/uL (4.20-5.40); White Blood Count 7.06 K/ul (4.8-10.8)
--- NOTE | 2024-01-23 07:47 | XRay Report ---
XR chest 1V portable HISTORY: 68 years-old Female CHF acute shortness of breath with congestive heart failure COMPARISON: 01/21/2024 TECHNIQUE: AP view of the chest FINDINGS: Cardiac silhouette is enlarged. Pulmonary vascular congestion with interstitial coarsening. No pneumo thorax. Probable trace pleural effusions with bibasilar atelectasis. Degenerative changes of the shou lders and spine. IMPRESSION: Cardiomegaly with unchanged pulmonary edema. ACT 112: Negative or not required by law. The above report was generated using voice recognition software. It may contain grammatical, syntax o r spelling errors. Electronically signed by: Chan Luther M.D. 01/23/2024 7:46 AM
[2024-01-23 08:17] LABS: INR 1.3 (0.9-1.1); Prothrombin Time 14.4 Seconds (9.0-12.0)
[2024-01-23 08:38] LABS: BUN Creatinine Ratio 23.8 (10-20); Calcium 8.9 mg/dl (8.6-10.3); Est GFR (African American) 31.1 ml/min; Est GFR (Non-African American) 26.8 ml/min; Potassium 4.5 mmol/L (3.5-5.1)
[2024-01-23] MEDS: metOLazone 5 MG TABLET PO ONE (09:28)
--- NOTE | 2024-01-23 11:39 | Hospitalist Progress Note ---
Date of Service January 23, 2024 Assessment & Plan (1) Melena: Plan: Melena present on admission. Suspected upper GI bleed. This may be due to supratherapeutic INR present on admission. She received vitamin K on admission for INR 9.5. Repeat INR this morning is 3.9. Vitamin K administered again on January 21 and INR is now down to 1.3. Fortunately her hemoglobin is stable. Coumadin remains on hold. GI consult appreciated. Conservative management recommended. She remains on Protonix intravenously twice daily. Diet has been advanced from clear liquids now to full liquids. (2) Stage 3b chronic kidney disease: Plan: Acute on chronic kidney disease stage III. Creatinine continues to improve. Now down to 1.8. Monitor intake and output. Serial lab (3) Hyperkalemia: Plan: Mild on admission. Now resolved. Serial labs. (4) Chronic diastolic CHF (congestive heart failure): Plan: Acute on Chronic diastolic CHF. No improvement on chest x-ray today, January 22. Continue parenteral Bumex therapy. 1 dose of oral metolazone ordered for today, January 22. Monitor intake and output. Serial chest x-ray (5) Atrial fibrillation: Plan: Paroxysmal. Currently sinus bradycardia. Metoprolol dosage was down titrated yesterday, January 21. Heart rate has improved. Amiodarone has been restarted. Telemetry. (6) Hypertension: Plan: Stable. Continue current medical management (7) Type 2 diabetes mellitus with renal complication: Plan: Diet advance from clear liquids to full liquids. Will avoid basal insulin at this time until she is taking an ADA diet. Sliding scale coverage. Plan OT and PT evaluations requested. She may need rehab placement before she can go home Admission and Anticipated Discharge Date Admission Date: January 21, 2024 Subjective Alert. No new problems. Unfortunately, her chest x-ray today, January 22, continues to show CHF with little improvement. She is on a goodly amount of parenteral Bumex. 1 dose of oral metolazone will be administered today. Diet advanced to full liquids. Coumadin has been reversed with vitamin K and INR is now down to 1.3. Fortunately, her hemoglobin is stable at 8.8. Creatinine continues to improve down to 1.8. Glucose 145. Heart rate has improved since metoprolol was down titrated yesterday, January 21. GI consultation recommends conservative management without EGD at this time. She remains on 2 L of oxygen per nasal cannula. OT and PT assessments have been requested. Review of Systems 2 Review of Systems: Constitutional-no fever or chills ENT-no blurred vision, no double vision, no epistaxis, no sore throat Respiratory-nonproductive cough. Wheezing at rest. No hemoptysis. Short of breath with minimal exertion Cardiac-no palpitations, no syncope. She complains of chest tightness at rest GI-no nausea, vomiting, diarrhea, melena, hematochezia -no urinary retention, no urinary incontinence, no dysuria, no hematuria Musculoskeletal-no joint pain, no muscle tenderness Skin-no bruising, no rashes, no pruritus Neuro-no isolated weakness, no paresthesia Psych-no depression, no anxiety Physical Exam 2 Physical Exam: General-alert and oriented x3, no fever, no chills. Morbidly obese HEENT-head atraumatic and normocephalic, pupils equal and reactive to light, extraocular muscles intact Neck-no lymphadenopathy or thyromegaly, trachea midline Chest-diminished breath sounds bilaterally with inspiratory bibasilar rales and expiratory wheezes. No dullness to percussion. i Cardiac-regular rate and rhythm, normal S1 and S2 Abdomen-normal bowel sounds, nontender, no hepatosplenomegaly Extremities-no cyanosis, clubbing. Chronic appearing mild bilateral lower extremity nonpitting edema Neuro-cranial nerves II through XII intact, motor and sensory function within normal limits, strength symmetrical, no focal deficits Psych-normal affect, normal mood Results & Data Results & Data Vital Signs (Past 12 Hours) Vital Signs Temp Pulse Pulse Resp BP BP Pulse Ox 01/23/24 11:04 57 L 20 128/64 95 01/23/24 10:55 59 L 20 95 01/23/24 08:00 74 01/23/24 08:00 01/23/24 07:22 74 20 136/46 L 95 01/23/24 06:15 65 01/23/24 03:39 36.3 C L 61 18 105/65 96 01/22/24 23:45 36.4 C L 61 16 123/61 97 O2 Del Method O2 Flow Rate FiO2 01/23/24 11:04 Nasal Cannula 2.0 01/23/24 10:55 Nasal Cannula 2 01/23/24 08:00 01/23/24 08:00 Nasal Cannula 2 01/23/24 07:22 Nasal Cannula 2.0 01/23/24 06:15 Nasal Cannula 2 98 01/23/24 03:39 Nasal Cannula 2 01/22/24 23:45 CPAP Laboratory Results 01/23/24 06:49 01/23/24 06:49 PG Care Time/CCT Total # of Minutes Spent Total Time Spent with Patient: Total time spent is greater than 50% in coordination of care (as documented) at patient's floor/unit and/or counseling patient: Coding Level of Care Code 01622 SUB INP/OBS CARE 3/50MIN Diagnoses Melena K92.1 Stage 3b chronic kidney disease N18.32 Hyperkalemia E87.5 Chronic diastolic CHF (congestive heart failure) I50.32 Atrial fibrillation I48.91 Hypertension I10 Type 2 diabetes mellitus with renal complication E11.29
--- NOTE | 2024-01-23 13:44 | Electrocardiogram Report ---
Test Reason : Blood Pressure : / mmHG Vent. Rate : 057 BPM Atrial Rate : 057 BPM P-R Int : 222 ms QRS Dur : 100 ms QT Int : 504 ms P-R-T Axes : 088 055 050 degrees QTc Int : 490 ms Sinus bradycardia with 1st degree A-V block Cannot rule out Anterior infarct , age undetermined Abnormal ECG When compared with ECG of 03-MAY-2022 09:52, NH interval has increased Confirmed by Hank Seay ([id number]) on 01/23/2024 1:44:27 PM Referred By: REFERRED SELF Confirmed By:Hank Seay
[2024-01-23 19:12] LABS: Thyroid Stimulating Hormone 2.304 uIu/ml (0.300-4.500)
[2024-01-23 19:14] LABS: T4 Free Thyroxine 1.11 ng/dl (0.61-1.60)
[2024-01-24 08:23] LABS: Basophils # (auto) 0.02 K/uL (0.00-0.20); Basophils % (auto) 0.3 %; Eosinophils # (auto) 0.18 K/uL (0.00-0.50); Hematocrit (blood only) 29.9 % (37.0-47.0); Hemoglobin 8.9 g/dl (12.0-16.0); Immature Granulocytes # (auto) 0.04 K/uL (0.01-0.20); Immature Granulocytes % (auto) 0.7 %; Lymphocytes # (auto) 0.94 K/uL (1.20-3.40); Lymphocytes % (auto) 15.6 %; Mean Corpuscular Hemoglobin 29.9 pg (25.0-34.0); Mean Corpuscular Hgb Conc 29.8 g/dL (32.0-36.0); Mean Corpuscular Volume 100.3 fL (80.0-100.0); Mean Platelet Volume 10.3 fL (9.4-12.4); Monocytes # (auto) 0.65 K/uL (0.11-0.59); Monocytes % (auto) 10.8 %; Neutrophils # (auto) 4.18 K/uL (1.40-6.50); Neutrophils % (auto) 69.6 %; Nucleated RBC # (auto) 0.02 K/uL (0.00-0.12); Nucleated RBC % (auto) 0.3 %; Platelet Count 166 K/uL (130-400); RDW Coefficient of Variation 19.6 % (11.5-14.5); RDW Standard Deviation 70.6 fL (36.4-46.3); Red Blood Count 2.98 M/uL (4.20-5.40); White Blood Count 6.01 K/ul (4.8-10.8)
[2024-01-24] MEDS: SODIUM CHLORIDE 0.65% NA SOLN 45 ML (OCEAN) ONE (08:27)
[2024-01-24 09:15] LABS: INR 1.3 (0.9-1.1); Prothrombin Time 13.8 Seconds (9.0-12.0)
[2024-01-24 09:26] LABS: Calcium 9.1 mg/dl (8.6-10.3); Potassium 4.8 mmol/L (3.5-5.1)
[2024-01-24 09:31] LABS: BUN Creatinine Ratio 20.7 (10-20); Creatinine Clr Calc Pharmacy 40.9 ml/min; Est GFR (African American) 30.3 ml/min; Est GFR (Non-African American) 26.1 ml/min
[2024-01-24] MEDS: SODIUM CHLORIDE 0.65% NA SOLN 45 ML (OCEAN) STA (10:49)
--- NOTE | 2024-01-24 14:42 | Hospitalist Progress Note ---
Date of Service January 24, 2024 Assessment & Plan (1) Melena: Plan: Melena present on admission. Suspected upper GI bleed. This may have been due to supratherapeutic INR present on admission. She has received vitamin K twice now for INR 9.5 on admission which is down to 1.3 now. Fortunately her hemoglobin is stable. Coumadin remains on hold. GI consult appreciated. Conservative management recommended. She remains on Protonix twice daily. Diet has been advanced from full liquids to regular. (2) Stage 3b chronic kidney disease: Plan: Acute on chronic kidney disease stage III. Creatinine has improved and now stable. Monitor intake and output. Serial labs (3) Hyperkalemia: Plan: Mild on admission. Now resolved. Serial labs. (4) Chronic diastolic CHF (congestive heart failure): Plan: Acute on Chronic diastolic CHF. I&O measurements appear to be inaccurate. She states she is voiding considerably and clinically she looks better. Will repeat chest x-ray again tomorrow, January 24. Continue parenteral Bumex therapy. 1 dose of oral metolazone was administered on January 22. Monitor intake and output. (5) Atrial fibrillation: Plan: Paroxysmal. Metoprolol dosage was down titrated on January 21 due to bradycardia. Heart rate has improved. Amiodarone has been restarted. Telemetry. (6) Hypertension: Plan: Stable. Continue current medical management (7) Type 2 diabetes mellitus with renal complication: Plan: Diet advanced from full liquids to ADA diet. Basal insulin has been started. Sliding scale coverage. Plan To be determined. She may need rehab placement before she can go home Admission and Anticipated Discharge Date Admission Date: January 21, 2024 Subjective Alert and oriented. Clinically she looks better. INR remains stable at 1.3. Potassium slightly elevated on admission and now 4.8. Creatinine stable at 1.9. Thyroid profile normal. Intake and output measurements appear to be inaccurate. She states she is voiding considerably with the parenteral Bumex therapy. Will repeat chest x-ray again tomorrow, January 24. We discussed possible need for placement post discharge. She was encouraged to participate as best she could with OT and PT. Review of Systems 2 Review of Systems: Constitutional-no fever or chills ENT-no blurred vision, no double vision, no epistaxis, no sore throat Respiratory-nonproductive cough. Wheezing at rest. No hemoptysis. Short of breath with minimal exertion Cardiac-no palpitations, no syncope. She complains of chest tightness at rest GI-no nausea, vomiting, diarrhea, melena, hematochezia -no urinary retention, no urinary incontinence, no dysuria, no hematuria Musculoskeletal-no joint pain, no muscle tenderness Skin-no bruising, no rashes, no pruritus Neuro-no isolated weakness, no paresthesia Psych-no depression, no anxiety Physical Exam 2 Physical Exam: General-alert and oriented x3, no fever, no chills. Morbidly obese HEENT-head atraumatic and normocephalic, pupils equal and reactive to light, extraocular muscles intact Neck-no lymphadenopathy or thyromegaly, trachea midline Chest-diminished breath sounds bilaterally with inspiratory bibasilar rales and expiratory wheezes. No dullness to percussion. Cardiac-regular rate and rhythm, normal S1 and S2 Abdomen-normal bowel sounds, nontender, no hepatosplenomegaly Extremities-no cyanosis, clubbing. Chronic appearing mild bilateral lower extremity nonpitting edema Neuro-cranial nerves II through XII intact, motor and sensory function within normal limits, strength symmetrical, no focal deficits Psych-normal affect, normal mood Results & Data Results & Data Vital Signs (Past 12 Hours) Vital Signs Temp Pulse Pulse Resp BP BP Pulse Ox 01/24/24 11:28 62 16 98 01/24/24 11:17 01/24/24 10:48 36.5 C 59 L 19 136/74 91 01/24/24 08:00 01/24/24 08:00 51 L 01/24/24 07:37 36.5 C 68 20 142/59 H 97 01/24/24 07:26 61 18 97 01/24/24 05:15 35.6 C L 61 20 146/73 H 98 01/24/24 03:25 15 O2 Del Method O2 Flow Rate 01/24/24 11:28 Nasal Cannula 2 01/24/24 11:17 2 01/24/24 10:48 Nasal Cannula 2 01/24/24 08:00 Room Air 01/24/24 08:00 01/24/24 07:37 Nasal Cannula 2 01/24/24 07:26 Nasal Cannula 2 01/24/24 05:15 BiPAP 01/24/24 03:25 2 Laboratory Results 01/24/24 07:51 01/24/24 07:51 PG Care Time/CCT Total # of Minutes Spent Total Time Spent with Patient: Total time spent is greater than 50% in coordination of care (as documented) at patient's floor/unit and/or counseling patient: Coding Level of Care Code 75466 SUB INP/OBS CARE 3/50MIN Diagnoses Melena K92.1 Stage 3b chronic kidney disease N18.32 Hyperkalemia E87.5 Chronic diastolic CHF (congestive heart failure) I50.32 Atrial fibrillation I48.91 Hypertension I10 Type 2 diabetes mellitus with renal complication E11.29
[2024-01-24] MEDS: LANTUS PER UNIT CHARGE SQ SCH (17:56)
[2024-01-25 05:24] LABS: INR 1.5 (0.9-1.1); Prothrombin Time 15.7 Seconds (9.0-12.0)
--- NOTE | 2024-01-25 09:06 | XRay Report ---
SINGLE VIEW CHEST CLINICAL HISTORY: Congestive heart failure. FINDINGS: 2 AP, portable, upright chest radiographs are compared to study dated 01/23/2024. The heart i s enlarged noting atherosclerotic calcification of the thoracic aorta. There is pulmonary vascular co ngestion with mild interstitial edema. Atelectasis is seen at the lung bases. No large pleural effusi on or pneumothorax is seen. The skeletal structures are osteopenic. There are chronic/healed left-pham ed rib fractures. IMPRESSION: Cardiomegaly with evidence of congestive failure. This is similar to previous. ACT 112: Negative or not required by law. Electronically signed by: Tano Whalen M.D. 01/25/2024 9:04 AM
[2024-01-25 10:16] LABS: BUN Creatinine Ratio 18.9 (10-20); Calcium 9.3 mg/dl (8.6-10.3); Creatinine Clr Calc Pharmacy 34.2 ml/min; Est GFR (African American) 24.8 ml/min; Est GFR (Non-African American) 21.4 ml/min; Potassium 4.7 mmol/L (3.5-5.1)
[2024-01-25] MEDS: CEFEPIME 2,000 MG in SYRINGE 0 ML IV SCH (14:08)
[2024-01-25] MEDS: predniSONE 20 MG TAB PO SCH (14:09)
--- NOTE | 2024-01-25 14:42 | Hospitalist Progress Note ---
Date of Service January 25, 2024 Assessment & Plan (1) Melena: Plan: Melena present on admission. Suspected upper GI bleed. This may have been due to supratherapeutic INR present on admission. She has received vitamin K twice for INR 9.5 on admission which went down to 1.3 and then up slightly to 1.5 today, January 24. Fortunately her hemoglobin is stable. Coumadin remains on hold. GI consult appreciated. Conservative management recommended. She remains on Protonix twice daily. Diet has been advanced to regular. (2) Stage 3b chronic kidney disease: Plan: Acute on chronic kidney disease stage III. Creatinine has improved and now stable. Monitor intake and output. Serial labs (3) Hyperkalemia: Plan: Mild on admission. Now resolved. Serial labs. (4) Chronic diastolic CHF (congestive heart failure): Plan: Acute on Chronic diastolic CHF. I&O measurements appear to be inaccurate. She states she is voiding considerably and clinically she looks better. Chest x-ray today, January 24, looks about the same with cardiomegaly and CHF. Continue parenteral Bumex therapy. 1 dose of oral metolazone was administered on January 22. Monitor intake and output. (5) Atrial fibrillation: Plan: Paroxysmal. Metoprolol dosage was down titrated on January 21 due to bradycardia. Heart rate has improved. Amiodarone has been restarted. Telemetry. (6) Hypertension: Plan: Stable. Continue current medical management (7) Type 2 diabetes mellitus with renal complication: Plan: Diet advanced to ADA diet. Basal insulin has been started. Sliding scale coverage. (8) Acute bronchitis: Plan: Cefepime has been started, day 1. She also has associated bronchospasm and is now on oral prednisone. Sputum culture pending (9) Chronic respiratory failure with hypoxia: Plan: Stable. She is requiring 2 L of oxygen which she uses at home. Plan Occupational Therapy recommends rehab placement while PT recommends the patient discharge to home. The patient would rather go home. She is now on cefepime and prednisone for suspected bronchitis with bronchospasm. Hopefully she can go home soon Admission and Anticipated Discharge Date Admission Date: January 21, 2024 Subjective Alert and oriented. No distress. She is still wheezing and has a productive cough. Mid appears she has acute bronchitis with bronchospasm. Sputum culture requested. She is now on cefepime, day 1 along with prednisone orally. Good urine output with parenteral Bumex. Chest x-ray done today, January 24, looks about the same with cardiomegaly and evidence of CHF. Potassium stable at 4.7. Creatinine up slightly with diuresis to 2.2. She is requiring 2 L of oxygen currently and she states this is what she usually uses at home. Coumadin remains on hold. Heart rate has normalized with down titration of metoprolol. Review of Systems 2 Review of Systems: Constitutional-no fever or chills ENT-no blurred vision, no double vision, no epistaxis, no sore throat Respiratory-productive cough. No hemoptysis. Wheezing. Shortness of breath with exertion Cardiac-no palpitations, no chest pain, no syncope GI-no nausea, vomiting, diarrhea, melena, hematochezia -no urinary retention, no urinary incontinence, no dysuria, no hematuria Musculoskeletal-no joint pain, no muscle tenderness Skin-no bruising, no rashes, no pruritus Neuro-no isolated weakness, no paresthesia, no weakness Psych-no depression, no anxiety Physical Exam 2 Physical Exam: General-alert and oriented x3, no fever, no chills. Obese HEENT-head atraumatic and normocephalic, pupils equal and reactive to light, extraocular muscles intact Neck-no lymphadenopathy or thyromegaly, trachea midline Chest-midline rhonchi. Bilateral expiratory wheezes. No dullness to percussion. Cardiac-regular rate and rhythm, normal S1 and S2 Abdomen-normal bowel sounds, nontender, no hepatosplenomegaly Extremities-no cyanosis, clubbing. Chronic venous stasis changes with brawny induration bilateral lower extremities below the knees Neuro-cranial nerves II through XII intact, motor and sensory function within normal limits, strength symmetrical, no focal deficits Psych-normal affect, normal mood Results & Data Results & Data Vital Signs (Past 12 Hours) Vital Signs Temp Pulse Pulse Resp BP Pulse Ox O2 Del Method 01/25/24 12:52 36.6 C 65 17 106/49 L 91 Nasal Cannula 01/25/24 11:04 73 20 91 Nasal Cannula 01/25/24 08:02 36.4 C L 79 20 121/49 L 95 Nasal Cannula 01/25/24 08:00 Nasal Cannula 01/25/24 08:00 69 01/25/24 07:23 73 18 98 Nasal Cannula 01/25/24 03:32 113 H 24 97 01/25/24 03:26 81 22 109/70 97 CPAP O2 Flow Rate 01/25/24 12:52 2 01/25/24 11:04 2 01/25/24 08:02 2 01/25/24 08:00 2 01/25/24 08:00 01/25/24 07:23 4 01/25/24 03:32 2 01/25/24 03:26 Laboratory Results 01/24/24 07:51 01/25/24 03:57 PG Care Time/CCT Total # of Minutes Spent Total Time Spent with Patient: Total time spent is greater than 50% in coordination of care (as documented) at patient's floor/unit and/or counseling patient: Coding Level of Care Code 55202 SUB INP/OBS CARE 3/50MIN Diagnoses Melena K92.1 Stage 3b chronic kidney disease N18.32 Hyperkalemia E87.5 Chronic diastolic CHF (congestive heart failure) I50.32 Atrial fibrillation I48.91 Hypertension I10 Type 2 diabetes mellitus with renal complication E11.29 Acute bronchitis J20.9 Chronic respiratory failure with hypoxia J96.11
--- NOTE | 2024-01-25 18:56 | Electrocardiogram Report ---
Test Reason : Blood Pressure : / mmHG Vent. Rate : 048 BPM Atrial Rate : 048 BPM P-R Int : 226 ms QRS Dur : 114 ms QT Int : 580 ms P-R-T Axes : 087 037 015 degrees QTc Int : 518 ms Sinus bradycardia with 1st degree A-V block Incomplete left bundle block Prolonged QT Abnormal ECG When compared with ECG of 21-JAN-2024 09:48, (unconfirmed) QT has lengthened Confirmed by Hank Seay ([id number]) on 01/25/2024 6:55:31 PM Referred By: REFERRED SELF Confirmed By:Hank Seay
[2024-01-26 07:26] LABS: BUN Creatinine Ratio 19.9 (10-20); Calcium 9.4 mg/dl (8.6-10.3); Creatinine Clr Calc Pharmacy 31.7 ml/min; Est GFR (African American) 22.6 ml/min; Est GFR (Non-African American) 19.5 ml/min; Potassium 5.4 mmol/L (3.5-5.1)
[2024-01-26 10:16] LABS: INR 1.5 (0.9-1.1); Prothrombin Time 15.6 Seconds (9.0-12.0)
[2024-01-26 10:19] LABS: Basophils # (auto) 0.02 K/uL (0.00-0.20); Basophils % (auto) 0.3 %; Hematocrit (blood only) 29.7 % (37.0-47.0); Immature Granulocytes # (auto) 0.08 K/uL (0.01-0.20); Immature Granulocytes % (auto) 1.1 %; Lymphocytes # (auto) 0.69 K/uL (1.20-3.40); Lymphocytes % (auto) 9.8 %; Mean Corpuscular Hemoglobin 29.8 pg (25.0-34.0); Mean Corpuscular Hgb Conc 30.3 g/dL (32.0-36.0); Mean Corpuscular Volume 98.3 fL (80.0-100.0); Mean Platelet Volume 11.4 fL (9.4-12.4); Monocytes # (auto) 0.13 K/uL (0.11-0.59); Monocytes % (auto) 1.8 %; Neutrophils # (auto) 6.12 K/uL (1.40-6.50); Nucleated RBC # (auto) 0.02 K/uL (0.00-0.12); Nucleated RBC % (auto) 0.3 %; Platelet Count 181 K/uL (130-400); RDW Coefficient of Variation 18.8 % (11.5-14.5); RDW Standard Deviation 68.6 fL (36.4-46.3); Red Blood Count 3.02 M/uL (4.20-5.40); White Blood Count 7.04 K/ul (4.8-10.8)
--- NOTE | 2024-01-26 12:48 | Hospitalist Progress Note ---
Date of Service January 26, 2024 Assessment & Plan (1) Melena: Plan: Melena present on admission. Suspected upper GI bleed. Now resolved. This may have been due to supratherapeutic INR present on admission. She has received vitamin K twice for INR 9.5 on admission which went down to 1.3 and then up slightly to 1.5 again today, January 25. Fortunately her hemoglobin is stable. Coumadin remains on hold. She will remain off Coumadin at the time of discharge. GI consult appreciated. Conservative management recommended. She remains on Protonix twice daily. Diet has been advanced to regular. (2) Stage 3b chronic kidney disease: Plan: Acute on chronic kidney disease stage III. Creatinine has improved and now stable. Monitor intake and output. Serial labs (3) Hyperkalemia: Plan: Mild on admission. Returned to normal then increased again to 5.4 although she is not on any EUSEBIO inhibitors, ARB, spironolactone, or potassium supplements. Will follow. Serial labs. (4) Chronic diastolic CHF (congestive heart failure): Plan: Acute on Chronic diastolic CHF. I&O measurements appear to be inaccurate. She states she is voiding considerably with the parenteral Bumex and clinically she looks better. Monitor intake and output. (5) Atrial fibrillation: Plan: Paroxysmal. Metoprolol dosage was down titrated on January 21 due to bradycardia. Heart rate has improved. Continue amiodarone. Telemetry. (6) Hypertension: Plan: Stable. Continue current medical management (7) Type 2 diabetes mellitus with renal complication: Plan: Diet advanced to ADA diet. Basal insulin has been started and uptitrated today, January 25. Sliding scale coverage. (8) Acute bronchitis: Plan: Cefepime and oral prednisone have helped. Cefepime day 2. Sputum cultures pending. She also has associated bronchospasm and is now on oral prednisone. Improved (9) Chronic respiratory failure with hypoxia: Plan: Stable. She is requiring 2 L of oxygen which she uses at home. Plan Possibly home tomorrow, January 26, with home health services. Admission and Anticipated Discharge Date Admission Date: January 21, 2024 Subjective Alert and oriented. She is nearly back to her baseline. Hopefully home tomorrow, January 26, with home health services. She will remain off Coumadin indefinitely. INR today, January 25, is 1.5. Lantus uptitrated to 15 units twice daily today, January 25. Glucose 234 this morning. Lungs sound better with prednisone therapy and cefepime. Sputum culture remains pending. She is on 2 L of oxygen per nasal cannula which is what she uses at home. Review of Systems 2 Review of Systems: Constitutional-no fever or chills ENT-no blurred vision, no double vision, no epistaxis, no sore throat Respiratory-productive cough. No hemoptysis. Wheezing. Shortness of breath with exertion Cardiac-no palpitations, no chest pain, no syncope GI-no nausea, vomiting, diarrhea, melena, hematochezia -no urinary retention, no urinary incontinence, no dysuria, no hematuria Musculoskeletal-no joint pain, no muscle tenderness Skin-no bruising, no rashes, no pruritus Neuro-no isolated weakness, no paresthesia, no weakness Psych-no depression, no anxiety Physical Exam 2 Physical Exam: General-alert and oriented x3, no fever, no chills. Obese HEENT-head atraumatic and normocephalic, pupils equal and reactive to light, extraocular muscles intact Neck-no lymphadenopathy or thyromegaly, trachea midline Chest-midline rhonchi. Bilateral expiratory wheezes. No dullness to percussion. Cardiac-regular rate and rhythm, normal S1 and S2 Abdomen-normal bowel sounds, nontender, no hepatosplenomegaly Extremities-no cyanosis, clubbing. Chronic venous stasis changes with brawny induration bilateral lower extremities below the knees Neuro-cranial nerves II through XII intact, motor and sensory function within normal limits, strength symmetrical, no focal deficits Psych-normal affect, normal mood Results & Data Results & Data Vital Signs (Past 12 Hours) Vital Signs Temp Pulse Pulse Resp BP Pulse Ox Pulse Ox 01/26/24 11:12 36.5 C 76 22 141/63 H 100 01/26/24 11:00 72 18 92 01/26/24 10:00 93 01/26/24 08:00 01/26/24 08:00 69 01/26/24 07:26 36.6 C 78 18 127/98 94 01/26/24 07:10 76 18 92 01/26/24 04:28 19 95 01/26/24 03:00 36.6 C 71 21 159/73 H 94 O2 Del Method O2 Del Method O2 Flow Rate O2 Flow Rate 01/26/24 11:12 Nasal Cannula 2 01/26/24 11:00 Nasal Cannula 2 01/26/24 10:00 Nasal Cannula 2 01/26/24 08:00 Nasal Cannula 2 01/26/24 08:00 01/26/24 07:26 Room Air 2 01/26/24 07:10 Nasal Cannula 2 01/26/24 04:28 2 01/26/24 03:00 BiPAP Laboratory Results 01/26/24 06:33 01/26/24 06:33 PG Care Time/CCT Total # of Minutes Spent Total Time Spent with Patient: Total time spent is greater than 50% in coordination of care (as documented) at patient's floor/unit and/or counseling patient: Coding Level of Care Code 59766 SUB INP/OBS CARE 3/50MIN Diagnoses Melena K92.1 Stage 3b chronic kidney disease N18.32 Hyperkalemia E87.5 Chronic diastolic CHF (congestive heart failure) I50.32 Atrial fibrillation I48.91 Hypertension I10 Type 2 diabetes mellitus with renal complication E11.29 Acute bronchitis J20.9 Chronic respiratory failure with hypoxia J96.11
[2024-01-26] MEDS: LANTUS PER UNIT CHARGE SQ SCH (20:45)
[2024-01-27 07:18] LABS: Basophils # (auto) 0.01 K/uL (0.00-0.20); Basophils % (auto) 0.1 %; Eosinophils # (auto) 0.02 K/uL (0.00-0.50); Eosinophils % (auto) 0.3 %; Hematocrit (blood only) 28.1 % (37.0-47.0); Hemoglobin 8.8 g/dl (12.0-16.0); Immature Granulocytes # (auto) 0.06 K/uL (0.01-0.20); Immature Granulocytes % (auto) 0.9 %; Lymphocytes # (auto) 0.69 K/uL (1.20-3.40); Lymphocytes % (auto) 10.3 %; Mean Corpuscular Hemoglobin 30.3 pg (25.0-34.0); Mean Corpuscular Hgb Conc 31.3 g/dL (32.0-36.0); Mean Corpuscular Volume 96.9 fL (80.0-100.0); Mean Platelet Volume 10.5 fL (9.4-12.4); Monocytes # (auto) 0.42 K/uL (0.11-0.59); Monocytes % (auto) 6.2 %; Neutrophils # (auto) 5.53 K/uL (1.40-6.50); Neutrophils % (auto) 82.2 %; Nucleated RBC # (auto) 0.03 K/uL (0.00-0.12); Nucleated RBC % (auto) 0.4 %; Platelet Count 201 K/uL (130-400); RDW Coefficient of Variation 18.2 % (11.5-14.5); RDW Standard Deviation 64.7 fL (36.4-46.3); White Blood Count 6.73 K/ul (4.8-10.8)
[2024-01-27 07:35] LABS: BUN Creatinine Ratio 23.8 (10-20); Calcium 9.2 mg/dl (8.6-10.3); Creatinine Clr Calc Pharmacy 30.1 ml/min; Est GFR (African American) 21.5 ml/min; Est GFR (Non-African American) 18.6 ml/min
[2024-01-27 07:48] LABS: INR 1.6 (0.9-1.1); Prothrombin Time 16.9 Seconds (9.0-12.0)
[2024-01-27] MEDS: predniSONE 10 MG TABLET PO SCH (09:03)
--- NOTE | 2024-01-27 10:06 | XRay Report ---
XR chest 1V portable CLINICAL HISTORY: chf TECHNIQUE: Single frontal radiograph of the chest was obtained. Comparison: Comparison is made to chest radiograph 01/25/2024 FINDINGS: Exam is limited by underpenetration. Cardiomegaly is noted. The aortic arch is calcified. Prominence and cephalization of the vasculature is seen. Small effusions cannot be excluded. IMPRESSION: Cardiomegaly and mild pulmonary edema. This is slightly improved from prior exam. Small effusions can not be excluded. ACT 112: Negative or not required by law. Electronically signed by: Shivam Resendez M.D. 01/27/2024 10:05 AM
--- NOTE | 2024-01-27 11:40 | Discharge Summary ---
Date of Service January 27, 2024 Admission HPI Per Admitting Provider Iveth is a 68-year-old female with past medical history of A-fib on warfarin, CKD 3, type II DM, chronic diastolic CHF, COPD, hypertension, hypothyroidism, psoriasis, intertrigo, and obesity with hypoventilation syndrome who presents to the ER after being seen 5 days ago for supratherapeutic INR treated with vitamin K and who comes in with dyspnea, melena, and hematochezia. Currently seen at the bedside. She is a slightly limited historian of her medications, notes she only took her levothyroxine this morning. Has been taking her warfarin since her prior discharge. She reports that her bowel movements are normally very dark black and sometimes sticky since she has been on an iron supplement and this has not changed however in the last 2 days she has had bright red and maroon blood mixed into her bowel movements. She does not have any abdominal or epigastric pain. She denies lightheadedness dizziness, chest pain, chest pressure syncope and falls. She reports that she has a history of CHF and she thinks her fluid levels are relatively normal for her, she has chronic pitting edema and venous stasis changes in her lower extremities bilaterally but feels her legs are about their normal baseline, and while she normally has orthopnea due to her weight she has not had any increased orthopnea or oxygen requirement. She uses 2 L of oxygen as needed during the daytime and at night with CPAP. She denies increased salt intake, has been eating little bit less. She reports she has been taking her Bumex every day as directed, last took this yesterday evening. She denies other symptoms and denies infectious symptoms. She has not had fever, chills, sweats, lightheadedness, dizziness, or dysuria. She reports she does have some vaginal itching as she had a labial biopsy taken and is pending follow-up with dermatology. There is no bleeding from the site at time of admission. Pathology from this reviewed, chronic spongiotic dermatitis differential including irritant dermatitis, atopic dermatitis, allergic, and seborrheic dermatitis and she is pending follow-up with dermatology. No evidence of infection, while she says this did initially bleed a little bit if she scratched it there is no bleeding at time of admission and she reports the bleeding and her bowel movements are completely different from this Medical History: Reviewed Medications: Reviewed Surgical History: Reviewed Family history: Reviewed Allergies: Reviewed Social History: INtermittent social wine use. No tobacco Code Status: DNR/DNI Principal Diagnosis Acute on chronic diastolic CHF, Coumadin toxicity with resultant GI bleeding, hyperkalemia, bradycardia, suspected acute bronchitis with bronchospasm Discharge Exam General-alert and oriented x3, no fever, no chills. Obese HEENT-head atraumatic and normocephalic, pupils equal and reactive to light, extraocular muscles intact Neck-no lymphadenopathy or thyromegaly, trachea midline Chest-midline rhonchi. Bilateral expiratory wheezes. No dullness to percussion. Cardiac-regular rate and rhythm, normal S1 and S2 Abdomen-normal bowel sounds, nontender, no hepatosplenomegaly Extremities-no cyanosis, clubbing. Chronic venous stasis changes with brawny induration bilateral lower extremities below the knees Neuro-cranial nerves II through XII intact, motor and sensory function within normal limits, strength symmetrical, no focal deficits Psych-normal affect, normal mood Discharge Data Allergies Allergy/AdvReac Type Severity Reaction Status Date / Time amoxicillin Allergy Severe SOB, RASH Verified 01/11/24 13:47 Penicillins Allergy Severe SOB, RASH Verified 01/11/24 13:47 clarithromycin Allergy Intermediate "feels Verified 01/11/24 13:47 like flying high" clindamycin Allergy Intermediate "feels Verified 01/11/24 13:47 like flying high" fluconazole Allergy Intermediate "feels Verified 01/11/24 13:47 like flying high" sulfamethoxazole Allergy Intermediate "feels Verified 01/11/24 13:47 like flying high" trimethoprim Allergy Intermediate "feels Verified 01/11/24 13:47 like flying high" Bactrim Allergy Unknown UNKNOWN Verified 02/21/18 10:32 codeine AdvReac Mild ITCHING, Verified 01/11/24 13:47 NAUSEA Consultations 01/21/24 11:22 ED Decision to Admit Stat 01/21/24 12:46 Consult Gastroenterology Routine Hospital Course (1) Melena: Melena present on admission. Suspected upper GI bleed. Now resolved. This may have been due to supratherapeutic INR present on admission. She has received vitamin K twice for INR 9.5 on admission which went down to 1.3 and then up slightly to 1.6 today, January 26. Fortunately her hemoglobin is stable. Coumadin remains on hold and will remain on hold at the time of discharge. GI consult appreciated. Conservative management recommended. She remains on Protonix. Diet has been advanced to regular. (2) Stage 3b chronic kidney disease: Acute on chronic kidney disease stage III. Creatinine has improved and now stable. Monitor intake and output. Serial labs (3) Hyperkalemia: Mild on admission. Returned to normal then increased again to 5.4 although she is not on any EUSEBIO inhibitors, ARB, spironolactone, or potassium supplements. Potassium 5.0 today, January 26. Serial labs while hospitalized (4) Chronic diastolic CHF (congestive heart failure): Acute on Chronic diastolic CHF. I&O measurements appear to be inaccurate. She states she is voiding considerably with the parenteral Bumex and clinically she looks better. Monitor intake and output. Continue oral Bumex 2 mg twice daily at home. Will add Zaroxolyn 5 mg to be taken every Sunday and (5) Atrial fibrillation: Paroxysmal. Metoprolol dosage was down titrated on January 21 due to bradycardia. Heart rate has improved. Continue amiodarone. Telemetry. (6) Hypertension: Stable. Continue current medical management (7) Type 2 diabetes mellitus with renal complication: Diet advanced to ADA diet. Basal insulin twice daily while hospitalized. She will resume her usual regimen at discharge. Sliding scale coverage. (8) Acute bronchitis: Cefepime and oral prednisone have helped. Cefepime day 3. Sputum cultures negative. She also has associated bronchospasm which is much improved with the addition of oral prednisone. Home on oral prednisone taper and oral antibiotic. (9) Chronic respiratory failure with hypoxia: Stable. She is requiring 2 L of oxygen which she uses at home. Plan Home today, January 26, with home health services. Total Time Total Time Spent Total Time Spent (In Minutes): 50 minutes Discharge Plan Discharge Items Patient Disposition: Home - Home Health Services Reason For Visit: GIB Discharge Diagnosis: Acute on chronic diastolic congestive heart failure, acute bronchitis with bronchospasm, Coumadin toxicity present on admission with resultant GI bleeding, hyperkalemia, sinus bradycardia Activity: Resume your previous activity Non-emergency contact: Primary Care Provider Call non-emergency contact if: you have any medication questions and your symptoms worsen Follow-up/Referrals: Levi Denson, DO [Primary Care Provider] - Diet: Carb Consistent or DM2 and Heart Healthy Addtl Attending Provider Instructions: Coumadin has been discontinued. Take prednisone in a tapering dose fashion as directed. Take Ceftin antibiotic for 5 more days. Resume usual diabetic medications. Take Zaroxolyn (metolazone) 5 mg every Sunday and every as an additional water pill Pending Studies at Discharge: No Stand-Alone Forms: My [facility] [id number], Smoking Cessation Medications and DC Order Prescriptions: New prednisone 10 mg Tablet See Rx Instructions .ROUTE .COMPLEX Qty: 12 0RF Rx Instructions: 10 mg orally 3 times a day for 2 days, then 10 mg twice a day for 2 days, then 10 mg once a day for 2 days, then stop metoprolol tartrate 25 mg Tablet 25 mg PO BID Qty: 60 0RF cefuroxime axetil 500 mg tablet 500 mg PO BID Qty: 10 0RF metolazone 5 mg tablet See Rx Instructions .ROUTE .COMPLEX Qty: 30 0RF Rx Instructions: 5 mg orally every Sunday and Continued meclizine 12.5 mg Tablet 12.5 mg PO TID PRN (Reason: Dizziness) 10 Days Qty: 30 Patient Comments: has not used in 2 years (DME) pen needle, diabetic [BD Ultra-Fine Mini Pen Needle] 31 gauge x 3/16" needle See Rx Instructions .Route Qty: 200 3RF Rx Instructions: use twice daily betamethasone dipropionate 0.05 % ointment 1 applic topical BID Qty: 45 1RF Rx Instructions: Apply to areas of the arms and legs twice daily for up to 2 weeks as needed for flaring. albuterol sulfate 90 mcg/actuation HFA aerosol inhaler 2 puff INHALATION Q6H PRN (Reason: Shortness Of Breath) Qty: 18 5RF amiodarone 100 mg tablet 100 mg PO QAM Qty: 30 3RF insulin glargine [Basaglar KwikPen U-100 Insulin] 100 unit/mL (3 mL) insulin pen See Rx Instructions subcut BID Qty: 30 5RF Rx Instructions: 30-40u subcutaneously twice a day; (DME) insulin syringe-needle U-100 [BD Insulin Syringe Ultra-Fine] 1 mL 31 gauge x 5/16 syringe See Rx Instructions [id number] .MEDSUPPLY Qty: 200 5RF Rx Instructions: use 5 syringes daily bumetanide 2 mg tablet 2 mg PO BID Qty: 120 3RF Hold Instructions: Dose reduced to 1mg/day for now while starting SGLT-I levothyroxine 50 mcg tablet See Rx Instructions .ROUTE .COMPLEX Qty: 90 3RF Dose Instruction: TAKE 1 TABLET BY MOUTH ONCE DAILY Rx Instructions: TAKE 1 TABLET BY MOUTH ONCE DAILY atorvastatin [Lipitor] 40 mg tablet 40 mg PO QAM Qty: 90 3RF Jardiance 10 mg tablet 10 mg PO QAM 30 Days Qty: 30 2RF Hold Instructions: Has Tinea Cruris - on hold for now starting 12/26/23 insulin lispro [Admelog U-100 Insulin lispro] 100 unit/mL solution See Rx Instructions .ROUTE .COMPLEX MDD 120 units Qty: 40 5RF Rx Instructions: Inject 30-40 three times a day with meals plus sliding scale; magnesium chloride 64 mg tablet,delayed release (DR/EC) 64 mg PO BID Qty: 180 3RF irbesartan 150 mg tablet 150 mg PO QAM Qty: 30 2RF calcitriol 0.5 mcg capsule 0.5 mcg PO 3XWK Qty: 36 3RF Patient Comments: sunday, , . Rx Instructions: TAKE THIS MED THREE TIMES WEEKLY. ezetimibe 10 mg tablet 10 mg PO QAM Qty: 90 3RF (DME) Manual Wheelchair Device See Rx Instructions .Route Qty: 1 0RF Rx Instructions: WIDE TRANSPORT WHEELCHAIR. USE WHEN OUT OF THE HOME triamcinolone acetonide 0.1 % cream 1 applic topical BID Qty: 30 3RF Rx Instructions: Apply to areas of the groin once daily for up to 2 weeks as needed for flaring. Otezla 30 mg tablet 30 mg PO QAM Qty: 30 5RF buspirone 5 mg tablet 5 mg PO TID PRN (Reason: anxiety) Qty: 60 2RF (DME) Oxygen Home [id number] Liters Per Minute See Rx Instructions .Route Qty: 1 0RF Rx Instructions: Humidification for oxygen Saccharomyces boulardii [Daily Probiotic (S. boulardii)] See Rx Instructions .ROUTE .COMPLEX Rx Instructions: as directed tacrolimus 0.1 % ointment 1 applic topical BID Qty: 30 1RF Rx Instructions: Apply to area of the groin twice daily as directed. Centrum Silver Women 8 mg iron-400 mcg-300 mcg tablet 1 tab PO QAM nystatin 100,000 unit/gram powder 1 applic topical BID PRN (Reason: itching) Qty: 60 4RF fluconazole 150 mg tablet 150 mg PO Q48H 14 Days Qty: 7 0RF acetaminophen 500 mg Capsule 1,000 mg PO HS PRN (Reason: Pain) ferrous sulfate 325 mg (65 mg iron) tablet 325 mg PO QAM Discontinued metoprolol tartrate 50 mg tablet 50 mg PO BID Qty: 180 3RF amlodipine 5 mg tablet 5 mg PO QAM Qty: 30 6RF warfarin 5 mg tablet 5 mg PO DAILY Qty: 100 3RF Protocol: Dose Management Condition: Sunday (Week One) Dose/Route: 2.5 mg Instruction: 0.5 x 5 mg tablets Condition: Sunday Dose/Route: 2.5 mg Instruction: 0.5 x 5 mg tablets Condition: Sunday Dose/Route: 5 mg Instruction: 1 x 5 mg tablet Condition: Sunday Dose/Route: 2.5 mg Instruction: 0.5 x 5 mg tablets Condition: Dose/Route: 0 mg Instruction: 0 tablets Condition: Sunday Dose/Route: 2.5 mg Instruction: 0.5 x 5 mg tablets Condition: Sunday Dose/Route: 2.5 mg Instruction: 0.5 x 5 mg tablets Condition: Sunday (Week Two) Dose/Route: 2.5 mg Instruction: 0.5 x 5 mg tablets Condition: Sunday Dose/Route: 2.5 mg Instruction: 0.5 x 5 mg tablets Condition: Sunday Dose/Route: 2.5 mg Instruction: 0.5 x 5 mg tablets Condition: Sunday Dose/Route: 2.5 mg Instruction: 0.5 x 5 mg tablets Condition: Dose/Route: 2.5 mg Instruction: 0.5 x 5 mg tablets Condition: Sunday Dose/Route: 2.5 mg Instruction: 0.5 x 5 mg tablets Condition: Sunday Dose/Route: 2.5 mg Instruction: 0.5 x 5 mg tablets Protocol Text: Adjustment Start Date: Sunday01/18/24 INR Value: 2.6 INR Date: 01/18/24 Rx Instructions: Take 1 tablet on Sunday and and 0.5 tablet on all other days. Discharge Orders: Discharge Order- CHF (Routine); Ordered 01/27/24 Ordered By: Reynaldo Diaz Admission Data Admit Date/Time: 01/21/24 12:02 Attending Provider: Reynaldo Diaz Admit Provider: Merlin Hickey Primary Care Provider: Levi Denson Other Providers: Merlin Hickey; Gigi Payan; [facility]; [facility] Coding Level of Care Code 59392 INP/OBS DISCH >30 MIN Diagnoses Melena K92.1 Stage 3b chronic kidney disease N18.32 Hyperkalemia E87.5 Chronic diastolic CHF (congestive heart failure) I50.32 Atrial fibrillation I48.91 Hypertension I10 Type 2 diabetes mellitus with renal complication E11.29 Acute bronchitis J20.9 Chronic respiratory failure with hypoxia J96.11
== END 2024-01-27 13:52 | disposition home health service (06) | DRG 813 ==
LOC: ED 09:25 → SUATTDRO 12:02 → EDINP 12:02 → 2E 12:43

== ENCOUNTER 2024-11-22 14:31 | Inpatient (IN) ==
--- NOTE | 2024-11-22 14:42 | Emergency Department Note ---
Impression & Plan Severe sepsis, Cellulitis of leg, right, Acute respiratory distress, Acute on chronic kidney failure ED Provider Note Name: MARY INGRAM Age: 69 Sex: Female Arrives Via: Ambulance Informant: Patient ED Provider: Hao Bliss MD Chief Complaint: weakness Impression: as per impressions above Medical Decision Makin-year-old female with a history of CHF, obesity, dyslipidemia, COPD, PAD, obesity, A-fib arrives for evaluation of weakness. Patient unable to get up off the floor after slipping out of chair. Did not have head injury and denies any pain in extremities. Neurologically intact we will hold off on CT imaging of brain at this time. Patient is satting well on her typical 2 L nasal cannula. Examination is concerning for cellulitis of the right leg however patient believes this is actually chronic for her. Given how red it is though could be this is cellulitis. Laboratory workup obtained which revealed a significantly elevated with elevated white blood cell count. Lactic acid, procalcitonin, blood cultures obtained. Lactic acid returned moderately elevated. She was empirically given broad-spectrum antibiotics to cover both possible lung and skin infection after discussion with pharmacist. Given chest x-ray cannot completely rule out underlying pneumonia. Patient has soft nontender abdomen. A urinalysis obtained which was unremarkable as well. Patient does appear to be in severe sepsis but does not have septic shock at this time and does not require pressors at this time either. Hospitalist consulted for further management. Sepsis management. Patient noted to be in severe sepsis with elevated white blood cell count, elevated lactic acid and findings of cellulitis of the right leg. Blood cultures were obtained along with lactic acid which was modestly elevated. Patient was given 1 L normal saline bolus rather than 30 mL/kg IV fluids as she is an acute on chronic renal failure as well as has fluid overload as is. Sepsis reevaluation. Following initial 1 L normal saline bolus IV. A sepsis reevaluation was completed by me. This was done at 5:45 PM on 11.22.24. Patient is stable with blood pressure 110/50 and heart rate of 70 breathing comfortably on her 2 L nasal cannula. At this time I do not feel that pressors are required. Triage/Nursing Notes reviewed by Me Differential:Infection, dehydration, metabolic abnormality, hypo/hyperglycemia, electrolyte disturbance, anemia, hypoxia, cardiac sources, intracerebral event, toxicologic, neurologic, as well as other pathologies. Vital Signs: reviewed and remarkable for no significant abnormalities Interventions: Normal saline bolus 1 L IV, cefepime IV, daptomycin IV, doxycycline IV Labs:ED labs Reviewed by me and remarkable for elevated lactic acid, elevated procalcitonin, elevated white blood cell count Imagin view chest x-ray as per my interpretation bilateral fullness with pulmonary edema developing. No evidence of opaque lobar infiltrate though given body habitus difficult to rule out infiltrate. EKG:As per my interpretation. Indication illness. Sinus at 73 bpm with a first-degree AV block. There is no ectopy nor ischemia. When compared to EKG of January 22, 2024 heart rate has increased. QTc 467. Cardiac/Tele Monitoring: Cardiac Monitoring: An Order was placed for continuous cardiac monitoring. The monitor shows a rate of 70 with a normal sinus rhythm. Consults:Discussed with Dr. Phillips of the hospital service who will further evaluate and manage. Plan: Disposition:Hospitalization. Condition: Fair History of Present Illness: 69-year-old female arrives for evaluation of weakness. Patient with worsening weakness last several days. She feels tired and exhausted. Mild cough associated with this. She developed a spasm in her back which is fairly common for her though it was as she was transferring and she had to lower self onto the floor. She was having too much discomfort and feeling too weak to be able to sit up and get off the floor so 911 was called. Initially plan was that patient wanted to refuse however given her degree of weakness and some hypoxia patient agreed to coming to the hospital for further evaluation. Patient denies any injury. She denies any headache or neck pain. She is not having any hip knee or ankle pain beyond her baseline discomforts. No she has chronic peripheral artery disease and discoloration of the legs. She is on a blood thinner and states she has not missed any doses. Past Medical History:See Below Home Medications:See Below Allergies:See Below Vitals:Blood Pressure: 104/65, Pulse 74, RR 23, T 36.9C, O2 97% on 2L Physical Exam: GENERAL: Patient is chronically unwell appearing appearing and in mild distress. RESPIRATORY: Patient states breathing is at baseline. moderately dyspneic/tachypneic. Diffuse crackles but very distant lung sounds. CARDIOVASCULAR: Regular rate and rhythm.No murmur appreciated. GASTROINTESTINAL: Abdomen soft, non-tender, no peritonitis. EXTREMITIES: Normal upper extremities and motion. She has severe bilateral lower leg lymphedema with peripheral vascular disease. Purpleish discoloration from mid calf downwards which she states is chronic. There is some erythema just proximal to this on both legs. Patient states this is normal for her. NEUROLOGIC: Alert and oriented. No focal neurologic deficits appreciated SKIN: No rash, no jaundice, no diaphoresis. PSYCH: Appropriate GCS: 15 ED Course: Times/Reassessments: Multiple repeat evaluation. Blood pressure remained stable without significant tachycardia. She states her breathing is stable as well. Critical Care: I have personally spent 35 minutes of critical care time in the direct management of this patient. Severe sepsis with significant leukocytosis requiring resuscitation and management. This was a life/limb threatening event. This 35 minutes is in excess of all separately billable procedures. Hao Bliss MD Past Med/Surg History Problem List (Updated 11/22/24 @ 17:50 by Hao Bliss MD) Acute on chronic kidney failure (Acute) Acute respiratory distress (Acute) Cellulitis of leg, right (Acute) Severe sepsis (Acute) PETE (acute kidney injury) Chronic respiratory failure with hypoxia Cellulitis Sepsis Chronic diastolic CHF (congestive heart failure) Submental mass Abscess of neck LAD (lymphadenopathy), submental Class 3 obesity with alveolar hypoventilation and body mass index (BMI) of 50.0 to 59.9 in adult Class 3 severe obesity due to excess calories with body mass index (BMI) of 40.0 to 44.9 in adult Umbilical hernia Tubular adenoma of colon Controlled type 2 diabetes mellitus with kidney complication, with long-term current use of insulin Bright red blood per rectum Constipation Hemangioma Epistaxis Personal history of diabetic foot ulcer Left knee DJD Stage 3 chronic kidney disease Chronic venous insufficiency (Chronic) Vitamin D deficiency Ambulatory dysfunction Hyperkalemia (Acute) Psoriasis Obesity hypoventilation syndrome Hypertrophic toenail Callus of foot Periorbital hematoma of both eyes Airway obstruction, anatomic Respiratory insufficiency following shock, trauma, or surgery Dermatitis Tinea cruris Tinea corporis Folliculitis Atrial flutter with rapid ventricular response Olecranon bursitis, right elbow Chronic anticoagulation (Chronic) Neuropathy (Chronic) Diabetic induced Peripheral arterial disease Bilateral lower extremity edema (Chronic) Gastric ulcer Venous insufficiency of both lower extremities (Chronic) PAD (peripheral artery disease) (Acute) Obesity (Chronic) COPD (chronic obstructive pulmonary disease) (Chronic) Dyslipidemia (Chronic) H/O malignant neoplasm of female breast (Chronic) Stage 3b chronic kidney disease Anemia of chronic disease Iron deficiency anemia Secondary hyperparathyroidism of renal origin Spinal stenosis of lumbar region (Chronic) Hypothyroidism Medical History (Updated 11/22/24 @ 17:50 by Hao Bliss MD) Type 2 diabetes mellitus with renal complication CONSTANCE (obstructive sleep apnea) CPAP Hypertension On home oxygen therapy uses 2L O2 at night w/cpap and in the daytime prn Diabetic neuropathy Hx of gastric ulcer Depression Chronic pain of left knee DJD Osteoarthritis Degenerative disc disease Diabetes mellitus, type 2 On anticoagulant therapy coumadin daily Hyperlipidemia Atrial flutter hx of Chronic obstructive pulmonary disease inhaler prn Obesity Diastolic CHF Atrial fibrillation Paroxysmal. Cardioversion x 2. follows with Dr. Rapp---on coumadin. Surgical History Family history of reaction to anesthesia FATHER>NAUSEA AND DIZZINESS History of nasal cauterization History of colonoscopy with polypectomy Nausea and vomiting after administration of anesthetic agent with "extreme vertigo" History of total hysterectomy with bilateral salpingo-oophorectomy (BSO) History of lumpectomy of right breast benign History of carpal tunnel surgery of left wrist History of tooth extraction most teeth removed--full upper denture/partial lower History of cardioversion x2, [facility]; most recent 2019 Family History Sister Family history of reaction to anesthesia nausea/vomiting Hypothyroidism Father Family history of reaction to anesthesia nausea/vomiting Family hx colonic polyps Hypertension Mother Diabetes Hypertension Denies family history of Ovarian cancer Prostate cancer Myocardial infarction Breast cancer Colorectal cancer Social History Smoking Status: Former smoker Tobacco Type: Cigarettes Age Started Using Tobacco: 20; Age Quit Using Tobacco: 60; packs per day: 1; Second Hand Exposure: Yes (hx); Do You Dip or Chew Tobacco: No; Hx Alcohol Use: Yes Alcohol type: beer and wine Alcohol Intake Frequency: Monthly or Less Alcohol Intake Frequency Comment: stated "once in a blue rios, but not often" Hx Substance Use: No Preferred Language: Nigerien Communication Ability: Effective Visual Impairment: Limited Hearing Ability: Hard of Hearing Polish Compounder Required: No Beliefs That Will Affect Care: None marital status: Single Current Living Situation: Parent and Family Current Living Situation Comment: BROTHER AND FATHER current occupational status: retired How many Children do You have: 0 Feels Safe at Home: Yes Diet: regular during the past year weight has: remained stable Dental Care, Regularly: Yes Physical Activity Frequency: Does not Exercise Seatbelt Use: always Sunscreen Use: No Assistive Devices: CPAP, Denture - Upper, Glasses, Oxygen - at Night, Walker and Wheelchair Allergies Allergies Allergy/AdvReac Type Severity Reaction Status Date / Time amoxicillin Allergy Severe SOB, RASH Verified 10/30/24 15:10 Penicillins Allergy Severe SOB, RASH Verified 10/30/24 15:10 clarithromycin Allergy Intermediate "feels Verified 10/30/24 15:10 like flying high" clindamycin Allergy Intermediate "feels Verified 10/30/24 15:10 like flying high" fluconazole Allergy Intermediate "feels Verified 10/30/24 15:10 like flying high" sulfamethoxazole Allergy Intermediate "feels Verified 10/30/24 15:10 like flying high" trimethoprim Allergy Intermediate "feels Verified 10/30/24 15:10 like flying high" Bactrim Allergy Unknown UNKNOWN Verified 02/21/18 10:32 empagliflozin AdvReac Severe Verified 10/30/24 15:10 [From Jardiance] codeine AdvReac Mild ITCHING, Verified 10/30/24 15:10 NAUSEA Home Meds Home Medications Medication Instructions Recorded Confirmed meclizine 12.5 mg tablet 12.5 mg PO TID PRN Dizziness 10 09/26/16 11/22/24 days #30 tabs [id number] 8 mg-folic 400 1 tab PO QAM 12/27/22 11/22/24 mcg-K 50 mcg-lutein 300 mcg tablet (Centrum Silver Women) acetaminophen 500 mg capsule 1,000 mg PO UD PRN Pain 01/05/23 11/22/24 ferrous sulfate 325 mg (65 mg 325 mg PO BID 01/05/23 11/22/24 iron) tablet Saccharomyces boulardii [Daily 1 cap PO DAILY 08/21/23 10/30/24 Probiotic (S. boulardii)] witmwqvt-krp-[id number] 5 mg-zeaxanth 1 cap PO DAILY 02/20/24 11/22/24 1 mg-bilberry 7.5 mg-herbal capsule (Macular Health Formula) [id number] See Rx Instructions topical 09/16/24 11/22/24 vera-vits A,D,and E 20 %-3 % .COMPLEX PRN VAGINAL SX topical cream (Vagisil) miconazole nitrate 2 % vaginal 1 applic vaginal UD PRN DIRECTED 09/16/24 11/22/24 cream (Monistat 7) mupirocin 2 % topical ointment 1 applic topical BID 09/16/24 11/22/24 tacrolimus 0.1 % topical ointment 1 applic topical BID 09/16/24 10/30/24 apremilast 30 mg tablet (Otezla) 30 mg PO QAM 11/22/24 11/22/24 calcitriol 0.25 mcg capsule 0.25 mcg PO 3XWK 11/22/24 11/22/24 clotrimazole-betamethasone 1 1 applic topical UD PRN DIRECTED 11/22/24 11/22/24 %-0.05 % topical cream ezetimibe 10 mg tablet 10 mg PO QAM 11/22/24 11/22/24 irbesartan 150 mg tablet 150 mg PO QAM 11/22/24 11/22/24 levothyroxine 50 mcg tablet 50 mcg PO UD 11/22/24 11/22/24 warfarin 5 mg tablet (Jantoven) 2.5 mg PO 3XWK 11/22/24 11/22/24 warfarin 5 mg tablet (Jantoven) 5 mg PO 4XWK 11/22/24 11/22/24 Previous Rx's Medication Instructions Recorded Wheelchair (Manual) (Manual #1 ea 08/04/21 Wheelchair) pen needle, diabetic 31 gauge x #200 ea 10/09/2201/04" (BD Ultra-Fine Mini Pen Needle) Oxygen Home #1 ea 01/19/23 buspirone 5 mg tablet 5 mg PO TID PRN anxiety #60 tabs 06/28/23 magnesium chloride 64 mg 64 mg PO BID #180 tabs 11/26/23 (magnesium chloride) tablet,delayed release nystatin 100,000 unit/gram topical 1 applic topical BID PRN itching 01/11/24 powder #60 grams warfarin 5 mg tablet 5 mg PO DAILY #100 tabs 02/04/24 metoprolol tartrate 25 mg tablet 25 mg PO BID 90 days #180 tabs 02/12/24 betamethasone dipropionate 0.05 % 1 applic topical BID #45 grams 03/31/24 topical ointment bumetanide 2 mg tablet 2 mg PO BID #180 tabs 05/08/24 insulin syringe-needle U-100 1 mL #200 ea 06/10/24 31 gauge x 5/16" (BD Insulin Syringe Ultra-Fine) blood sugar diagnostic (OneTouch #200 ea 06/14/24 Ultra Test strips) flash glucose scanning reader #1 ea 06/14/24 ([employer] Cristiana 2 [place]) insulin glargine 100 unit/mL (3 30 unit (0.3 mL) subcut BID #30 mL 08/04/24 mL) subcutaneous pen (Basaglar KwikPen U-100 Insulin) triamcinolone acetonide 0.1 % 1 applic topical .COMPLEX #30 grams 08/20/24 topical ointment amiodarone 100 mg tablet 100 mg PO QAM #90 tabs 09/22/24 albuterol sulfate 90 mcg/actuation 2 puff inhalation Q6H PRN 10/28/24 aerosol inhaler Shortness Of Breath #18 grams insulin lispro 100 unit/mL 25 - 35 unit (0.25 - 0.35 mL) 11/18/24 subcutaneous solution (Admelog U-) subcut UD #31.5 mL atorvastatin 40 mg tablet (Lipitor) 40 mg PO QAM #90 tabs 11/19/24 Results & Data (ED) Vital Signs Vital Signs - 24 hr 11/22/24 14:31 11/22/24 15:43 11/22/24 15:43 Temperature 36.9 C Temperature Source Oral Pulse Rate 77 Pulse Rate [Apical] 74 Respiratory Rate 12 23 Respiratory Effort / Characteristics Non-Labored Respiratory Depth Normal Respiratory Pattern Regular Blood Pressure 116/56 L Blood Pressure [Left Arm] 104/65 Blood Pressure Mean 76 Blood Pressure Mean [Left Arm] 78 Blood Pressure Position [Left Arm] Semi-fowlers Pulse Oximetry 98 100 97 Oxygen Delivery Method Nasal Cannula Nasal Cannula Room Air Oxygen Flow Rate 2 2 Sepsis Recent Fever Within 48 Hours No Sepsis New/Unexplained Change in Mental Status N/A Sepsis Action Taken by Nursing No Action Required 11/22/24 15:48 11/22/24 17:00 Temperature Temperature Source Pulse Rate 74 Pulse Rate [Apical] 74 Respiratory Rate 26 H Respiratory Effort / Characteristics Non-Labored Spontaneous Respiratory Depth Normal Respiratory Pattern Blood Pressure Blood Pressure [Left Arm] 104/48 L Blood Pressure Mean Blood Pressure Mean [Left Arm] 66 Blood Pressure Position [Left Arm] Semi-fowlers Pulse Oximetry 94 Oxygen Delivery Method Room Air Oxygen Flow Rate Sepsis Recent Fever Within 48 Hours Sepsis New/Unexplained Change in Mental Status Sepsis Action Taken by Nursing Laboratory Data 11/22/24 14:40 11/22/24 14:40 Lab Results 11/22/24 11/22/24 11/22/24 Range/Units 14:40 14:41 15:40 WBC 29.27 H (4.8-10.8) K/ul RBC 3.30 L (4.20-5.40) M/uL Hgb 9.8 L (12.0-16.0) g/dl Hct 31.8 L (37.0-47.0) % MCV 96.4 (80.0-100.0) fL MCH 29.7 (25.0-34.0) pg MCHC 30.8 L (32.0-36.0) g/dL RDW Std Deviation 59.3 H (36.4-46.3) fL RDW Coeff of Shannan 16.7 H (11.5-14.5) % Plt Count 272 (130-400) K/uL MPV 10.6 (9.4-12.4) fL Immature Gran % (Auto) 2.9 % Neut % (Auto) 94.4 % Lymph % (Auto) 1.3 % [place] % (Auto) 1.3 % Eos % (Auto) 0.0 % Baso % (Auto) 0.1 % Neut # (Auto) 27.59 H (1.40-6.50) K/uL Lymph # (Auto) 0.39 L (1.20-3.40) K/uL [place] # (Auto) 0.39 (0.11-0.59) K/uL Eos # (Auto) 0.00 (0.00-0.50) K/uL Baso # (Auto) 0.04 (0.00-0.20) K/uL Immature Gran # (Auto) 0.86 H (0.01-0.20) K/uL Absolute Nucleated RBC 0.02 (0.00-0.12) K/uL Nucleated RBC % (auto) 0.1 % Toxic Vacuolation 2+ Dohle Bodies 1+ Polychromasia 1+ Ovalocytes 1+ Stomatocytes 1+ PT 42.9 H (9.0-12.0) Seconds INR 4.5 H (0.9-1.1) APTT 47 H (21-31) Seconds PTT Ratio 1.7 Sodium 136 (136-145) mmol/L Potassium 5.2 H (3.5-5.1) mmol/L Chloride 95 L (98-107) mmol/L Carbon Dioxide 31 (21-32) mmol/L Anion Gap 10 (3-11) BUN 48 H (6-23) mg/dl Creatinine 2.75 H (0.6-1.2) mg/dl Est Cr Clr Drug Dosing Not Reportable eGFR 18.11 BUN/Creatinine Ratio 17.5 (10-20) Glucose 170 H (70-99(Fasting)) mg/dl Lactate (0.4-2.0) mmol/L Calcium 8.9 (8.6-10.3) mg/dl Magnesium 2.4 (1.7-2.4) mg/dl Total Bilirubin 0.5 (0.2-1.0) mg/dl Direct Bilirubin 0.1 (0-0.2) mg/dl AST 36 (13-39) U/L ALT 19 (7-52) U/L Alkaline Phosphatase 89 (34-104) U/L Troponin I High Sens 20.5 H (0-14) pg/ml B-Natriuretic Peptide 540 H (0-100) pg/ml Total Protein 7.5 (6.0-8.3) gm/dl Albumin 3.5 (3.4-5.0) gm/dl Procalcitonin 43.30 H (0-0.5) ng/ml TSH 1.847 (0.300-4.500) uIu/ml Urine Color Urine Appearance (Clear) Urine pH (4.5-7.5) Ur Specific [place] (1.000-1.030) Urine Protein (Negative) Urine Glucose (UA) (Negative) Urine Ketones (Negative) Urine Blood (Negative) Urine Nitrite (Negative) Urine Bilirubin (Negative) Urine Urobilinogen (Negative) Ur Leukocyte Esterase (Negative) Urine WBC (Auto) (0-5) /hpf Urine RBC (Auto) (0-2) /hpf U Hyaline Cast (Auto) (0-2) /lpf U Epithel Cells (Auto) (0-2) /hpf Urine Bacteria (Auto) (None Seen) Hyaline Casts (None Presnt) /lpf Nasal Screen MRSA (PCR) Negative (Negative) SARS-CoV-2 (PCR) NEGATIVE (Negative) Influenza Type A (PCR) Negative (Neg) Influenza Type B (PCR) Negative (Neg) RSV (RT-PCR) Negative (Neg) 11/22/24 11/22/24 Range/Units 16:07 16:39 WBC (4.8-10.8) K/ul RBC (4.20-5.40) M/uL Hgb (12.0-16.0) g/dl Hct (37.0-47.0) % MCV (80.0-100.0) fL MCH (25.0-34.0) pg MCHC (32.0-36.0) g/dL RDW Std Deviation (36.4-46.3) fL RDW Coeff of Shannan (11.5-14.5) % Plt Count (130-400) K/uL MPV (9.4-12.4) fL Immature Gran % (Auto) % Neut % (Auto) % Lymph % (Auto) % [place] % (Auto) % Eos % (Auto) % Baso % (Auto) % Neut # (Auto) (1.40-6.50) K/uL Lymph # (Auto) (1.20-3.40) K/uL [place] # (Auto) (0.11-0.59) K/uL Eos # (Auto) (0.00-0.50) K/uL Baso # (Auto) (0.00-0.20) K/uL Immature Gran # (Auto) (0.01-0.20) K/uL Absolute Nucleated RBC (0.00-0.12) K/uL Nucleated RBC % (auto) % Toxic Vacuolation Dohle Bodies Polychromasia Ovalocytes Stomatocytes PT (9.0-12.0) Seconds INR (0.9-1.1) APTT (21-31) Seconds PTT Ratio Sodium (136-145) mmol/L Potassium (3.5-5.1) mmol/L Chloride (98-107) mmol/L Carbon Dioxide (21-32) mmol/L Anion Gap (3-11) BUN (6-23) mg/dl Creatinine (0.6-1.2) mg/dl Est Cr Clr Drug Dosing eGFR BUN/Creatinine Ratio (10-20) Glucose (70-99(Fasting)) mg/dl Lactate 2.8 H* (0.4-2.0) mmol/L Calcium (8.6-10.3) mg/dl Magnesium (1.7-2.4) mg/dl Total Bilirubin (0.2-1.0) mg/dl Direct Bilirubin (0-0.2) mg/dl AST (13-39) U/L ALT (7-52) U/L Alkaline Phosphatase (34-104) U/L Troponin I High Sens (0-14) pg/ml B-Natriuretic Peptide (0-100) pg/ml Total Protein (6.0-8.3) gm/dl Albumin (3.4-5.0) gm/dl Procalcitonin (0-0.5) ng/ml TSH (0.300-4.500) uIu/ml Urine Color Dark Yellow Urine Appearance Clear (Clear) Urine pH 5.0 (4.5-7.5) Ur Specific [place] 1.021 (1.000-1.030) Urine Protein 1+ H (Negative) Urine Glucose (UA) Negative (Negative) Urine Ketones Trace H (Negative) Urine Blood Negative (Negative) Urine Nitrite Negative (Negative) Urine Bilirubin Negative (Negative) Urine Urobilinogen Negative (Negative) Ur Leukocyte Esterase Negative (Negative) Urine WBC (Auto) 0-5 (0-5) /hpf Urine RBC (Auto) 0-2 (0-2) /hpf U Hyaline Cast (Auto) >20 H (0-2) /lpf U Epithel Cells (Auto) 0-2 (0-2) /hpf Urine Bacteria (Auto) None Seen (None Seen) Hyaline Casts Present A (None Presnt) /lpf Nasal Screen MRSA (PCR) (Negative) SARS-CoV-2 (PCR) (Negative) Influenza Type A (PCR) (Neg) Influenza Type B (PCR) (Neg) RSV (RT-PCR) (Neg) Administered Medications Discontinued Medications Sodium Chloride (Nss) 1,000 mls @ 999 mls/hr IV .Q1H1M ONE Stop: 11/22/24 16:16 Last Admin: 11/22/24 15:46 Dose: 999 mls/hr Documented By: MMF Cefepime HCl (Maxipime 2000mg) 2,000 mg in 20 mls @ 5 mls/min IV NOW STA Stop: 11/22/24 15:33 Last Admin: 11/22/24 16:12 Dose: 5 mls/min Documented By: MMF Doxycycline Hyclate 100 mg/ (Dextrose) 100 mls @ 50 mls/hr IV NOW STA Stop: 11/22/24 17:30 Last Admin: 11/22/24 16:25 Dose: 50 mls/hr Documented By: MMF Daptomycin 375 mg/ Syringe 7.5 mls @ 3.75 mls/min IV NOW ONE; Protocol Stop: 11/22/24 16:01 Last Admin: 11/22/24 16:25 Dose: 3.75 mls/min Documented By: MMF Ondansetron HCl (Ondansetron Inj 2 Mg/Ml 2 Ml Vial) 4 mg IV NOW STA Stop: 11/22/24 15:26 Last Admin: 11/22/24 15:53 Dose: 4 mg Documented By: MMF Imaging Data Radiologist's Impression: Chest X-Ray 11/22/24 14:38 CHEST (AP PORTABLE): Reason for exam: Shortness of breath FINDINGS: Comparison made to a previous study dated 01/27/2024. Heart is moderately enlarged with central pulmonary venous hypertension and mild interstitial edema as well as small bilateral pleural effusions, right side larger than left. IMPRESSION: Moderate CHF with early interstitial edema and pleural effusions. Electronically signed by Devonte Guadalupe 11-22-2024 3:51 PM Discharge Plan Visit Data Chief Complaint: Weakness Stated Complaint: WEAKNESS ED Provider: Hao Bliss Discharge Problem: Severe sepsis, Cellulitis of leg, right, Acute respiratory distress, Acute on chronic kidney failure Forms Stand Alone Forms: [facility] [email or web address] Prescriptions Prescriptions: No Action meclizine 12.5 mg Tablet 12.5 mg PO TID PRN (Reason: Dizziness) 10 Days Qty: 30 Patient Comments: has not used in 2 years (DME) pen needle, diabetic [BD Ultra-Fine Mini Pen Needle] 31 gauge x 3/16" needle See Rx Instructions .Route Qty: 200 3RF Rx Instructions: use twice daily magnesium chloride 64 mg tablet,delayed release (DR/EC) 64 mg PO BID Qty: 180 3RF warfarin 5 mg tablet 5 mg PO DAILY Qty: 100 3RF Protocol: Dose Management Condition: Sunday Dose/Route: 2.5 mg Instruction: 0.5 x 5 mg tablets Condition: Sunday Dose/Route: 5 mg Instruction: 1 x 5 mg tablet Condition: Sunday Dose/Route: 2.5 mg Instruction: 0.5 x 5 mg tablets Condition: Sunday Dose/Route: 5 mg Instruction: 1 x 5 mg tablet Condition: Dose/Route: 2.5 mg Instruction: 0.5 x 5 mg tablets Condition: Sunday Dose/Route: 5 mg Instruction: 1 x 5 mg tablet Condition: Sunday Dose/Route: 5 mg Instruction: 1 x 5 mg tablet Protocol Text: Adjustment Start Date: Sunday10/31/24 INR Value: 2.1 INR Date: 10/30/24 Recheck Date: 11/21/24 Rx Instructions: Take 1 tablet on Sunday and and 0.5 tablet on all other days. bumetanide 2 mg tablet 2 mg PO BID Qty: 180 3RF Hold Instructions: Dose reduced to 1mg/day for now while starting SGLT-I (DME) insulin syringe-needle U-100 [BD Insulin Syringe Ultra-Fine] 1 mL 31 gauge x 5/16 syringe See Rx Instructions [id number] .MEDSUPPLY Qty: 200 5RF Rx Instructions: use 5 syringes daily (DME) FreeStyle Cristiana 2 [place] Misc See Rx Instructions .Route Qty: 1 0RF Rx Instructions: Use as directed to monitor glucose levels (DME) OneTouch Ultra Test Strip See Rx Instructions .Route Qty: 200 5RF Rx Instructions: Check FS 3-4x/day (in case of CGM failure) insulin glargine [Basaglar KwikPen U-100 Insulin] 100 unit/mL (3 mL) insulin pen 30 unit subcut BID Qty: 30 5RF triamcinolone acetonide 0.1 % ointment 1 applic topical .COMPLEX Qty: 30 0RF Rx Instructions: Apply to area of groin twice daily x 10 days as needed for flaring. amiodarone 100 mg tablet 100 mg PO QAM Qty: 90 3RF albuterol sulfate 90 mcg/actuation HFA aerosol inhaler 2 puff INHALATION Q6H PRN (Reason: Shortness Of Breath) Qty: 18 5RF insulin lispro [Admelog U-100 Insulin lispro] 100 unit/mL solution 25 - 35 unit subcut UD MDD 120 units Qty: 31.5 1RF Rx Instructions: Inject 25-35three times a day with meals plus sliding scale; atorvastatin [Lipitor] 40 mg tablet 40 mg PO QAM Qty: 90 3RF (DME) Manual Wheelchair Device See Rx Instructions .Route Qty: 1 0RF Rx Instructions: WIDE TRANSPORT WHEELCHAIR. USE WHEN OUT OF THE HOME buspirone 5 mg tablet 5 mg PO TID PRN (Reason: anxiety) Qty: 60 2RF (DME) Oxygen Home Liters Per Minute See Rx Instructions .Route Qty: 1 0RF Rx Instructions: Humidification for oxygen Saccharomyces boulardii [Daily Probiotic (S. boulardii)] 1 cap PO DAILY Rx Instructions: as directed betamethasone dipropionate 0.05 % ointment 1 applic topical BID Qty: 45 1RF Rx Instructions: Apply to areas of the arms and legs twice daily for up to 2 weeks as needed for flaring. Centrum Silver Women 8 mg iron-400 mcg-300 mcg tablet 1 tab PO QAM tacrolimus 0.1 % ointment 1 applic topical BID mupirocin 2 % ointment 1 applic topical BID miconazole nitrate [Monistat 7] 2 % cream 1 applic vaginal UD PRN (Reason: DIRECTED) Vagisil 20-3 % cream See Rx Instructions topical .COMPLEX PRN (Reason: VAGINAL SX) Rx Instructions: 0ne topically PRN; metoprolol tartrate 25 mg tablet 25 mg PO BID 90 Days Qty: 180 3RF nystatin 100,000 unit/gram powder 1 applic topical BID PRN (Reason: itching) Qty: 60 4RF acetaminophen 500 mg Capsule 1,000 mg PO UD PRN (Reason: Pain) ferrous sulfate 325 mg (65 mg iron) tablet 325 mg PO BID Macular Health Formula 5-1-7.5 mg Capsule 1 cap PO DAILY Otezla 30 mg tablet 30 mg PO QAM irbesartan 150 mg tablet 150 mg PO QAM ezetimibe 10 mg Tablet 10 mg PO QAM levothyroxine 50 mcg tablet 50 mcg PO UD Rx Instructions: TAKE 2 TABLETS ON SUNDAYS/ ALL OTHER DAYS TAKD 1 TABLET DAILY calcitriol 0.25 mcg capsule 0.25 mcg PO 3XWK Rx Instructions: SUNDAY/SUNDAY/SUNDAY clotrimazole-betamethasone [Lotrisone] 1-0.05 % Cream 1 applic TOPICAL UD PRN (Reason: DIRECTED) warfarin [Jantoven] 5 mg Tablet 5 mg PO 4XWK Rx Instructions: ,,SUNDAY AND SUNDAY warfarin [Jantoven] 5 mg Tablet 2.5 mg PO 3XWK Referrals Referrals: Levi Denson DO [Primary Care Provider] - Discharge Problem: Acute on chronic kidney failure Qualifiers: Acute renal failure type: unspecified Chronic kidney disease stage: unspecified stage Qualified Code(s): N17.9 - Acute kidney failure, unspecified; N18.9 - Chronic kidney disease, unspecified
[2024-11-22 15:12] LABS: Hematocrit (blood only) 31.8 % (37.0-47.0); Hemoglobin 9.8 g/dl (12.0-16.0); Mean Corpuscular Hemoglobin 29.7 pg (25.0-34.0); Mean Corpuscular Hgb Conc 30.8 g/dL (32.0-36.0); Mean Corpuscular Volume 96.4 fL (80.0-100.0); Mean Platelet Volume 10.6 fL (9.4-12.4); Nucleated RBC # (auto) 0.02 K/uL (0.00-0.12); Nucleated RBC % (auto) 0.1 %; Platelet Count 272 K/uL (130-400); RDW Coefficient of Variation 16.7 % (11.5-14.5); RDW Standard Deviation 59.3 fL (36.4-46.3); White Blood Count 29.27 K/ul (4.8-10.8)
[2024-11-22 15:23] LABS: Alanine Aminotransferase 19 U/L (7-52); Albumin Level 3.5 gm/dl (3.4-5.0); Alkaline Phosphatase 89 U/L (34-104); Anion Gap 10 (3-11); Aspartate Aminotransferase 36 U/L (13-39); BUN Creatinine Ratio 17.5 (10-20); Bilirubin Direct 0.1 mg/dl (0-0.2); Bilirubin,Total 0.5 mg/dl (0.2-1.0); Blood Urea Nitrogen 48 mg/dl (6-23); Calcium 8.9 mg/dl (8.6-10.3); Carbon Dioxide 31 mmol/L (21-32); Chloride 95 mmol/L (98-107); Glucose 170 mg/dl (70-99(Fasting)); Magnesium 2.4 mg/dl (1.7-2.4); Potassium 5.2 mmol/L (3.5-5.1); Sodium 136 mmol/L (136-145); Total Protein 7.5 gm/dl (6.0-8.3)
[2024-11-22] MEDS ORDERED: Patient's HEIGHT &/or WEIGHT Needed STA (15:25)
[2024-11-22 15:27] LABS: Basophils # (auto) 0.04 K/uL (0.00-0.20); Basophils % (auto) 0.1 %; Dohle Bodies 1+; Immature Granulocytes # (auto) 0.86 K/uL (0.01-0.20); Immature Granulocytes % (auto) 2.9 %; Lymphocytes # (auto) 0.39 K/uL (1.20-3.40); Lymphocytes % (auto) 1.3 %; Monocytes # (auto) 0.39 K/uL (0.11-0.59); Monocytes % (auto) 1.3 %; Neutrophils # (auto) 27.59 K/uL (1.40-6.50); Neutrophils % (auto) 94.4 %; Ovalocytes 1+; Polychromasia 1+; Stomatocytes 1+; Toxic Vacuolation 2+
[2024-11-22 15:29] LABS: INR 4.5 (0.9-1.1); Partial Thromboplastin Ratio 1.7; Partial Thromboplastin Time 47 Seconds (21-31); Prothrombin Time 42.9 Seconds (9.0-12.0); Troponin I High Sensitivity 20.5 pg/ml (0-14)
[2024-11-22 15:38] LABS: Thyroid Stimulating Hormone 1.847 uIu/ml (0.300-4.500)
[2024-11-22] MEDS: SODIUM CHLORIDE 0.9% 1,000 ML IV ONE (15:46)
--- NOTE | 2024-11-22 15:52 | XRay Report ---
CHEST (AP PORTABLE): Reason for exam: Shortness of breath FINDINGS: Comparison made to a previous study dated 01/27/2024. Heart is moderately enlarged with central pulmonary venous hypertension and mild interstitial edema as well as small bilateral pleural effusions, right side larger than left. IMPRESSION: Moderate CHF with early interstitial edema and pleural effusions. Electronically signed by Devonte Guadalupe 11-22-2024 3:51 PM
[2024-11-22] MEDS: ONDANSETRON INJ 2 MG/ML 2 ML VIAL IV STA (15:53)
[2024-11-22 15:58] LABS: Influenza A virus by PCR Negative (Neg); Influenza B virus by PCR Negative (Neg); RSV by PCR Negative (Neg); SARS CoV2 RNA(COVID-19) Ceph NEGATIVE (Negative)
[2024-11-22] MEDS: CEFEPIME 2000MG 2,000 MG/20 ML SYR IV STA (16:12)
[2024-11-22] MEDS: DOXYCYCLINE HYCLATE 100 MG in D5W MINI-B (NOW) IV STA (16:25)
[2024-11-22] MEDS: DAPTOmycin 375 MG in SYRINGE 0 ML IV ONE (16:25)
--- NOTE | 2024-11-22 16:27 | History & Physical Report ---
Date of Service November 22, 2024 Assessment & Plan (1) Sepsis: (2) Cellulitis: (3) Chronic respiratory failure with hypoxia: (4) PETE (acute kidney injury): Plan Iveth is a 69-year-old female with PMH of chronic diastolic CHF, GI bleed, obesity (BMI 63), T2DM, tubular adenoma of the colon, A-fib with RVR, PAD, CKD, JOSUE, TIA, and secondary hyperparathyroidism. She presented via EMS on 11/22 after slipping out of her chair. No head strike or LOC. She was unable to get up on her own, and was a lift assist per EMS. She reports that her symptoms (generalized weakness, chills, and SOB) started last night around 7 PM, and gradually worsened. #Sepsis Source: Pulmonary v. Skin and soft tissue from RLE cellulitis Leukocytosis at 29.27 with a neutrophil predominance; afebrile Procalcitonin significantly elevated at 43 Lactate 2.8, repeat pending NSS 1000 mL IV x 1 in the ED Patient is normotensive on arrival; given concern for respiratory distress with increased fluids, will defer full septic fluid bolus at this time Blood cultures drawn MRSA swab ordered, pending Cefepime 2000 mg IV q8h Daptomycin 6 mg/kg IV q24h Doxycycline 100 mg p.o. q12h #RLE cellulitis/diabetic foot infection Antibiotics (as above) Podiatry consult appreciated #Chronic hypoxic respiratory failure Patient reports she is on 2L NC at baseline Continuous pulse oximetry #CHF Last echocardiogram on 11/07/2022 revealed LVEF at 60 to 65% CXR on arrival revealed moderate CHF with early interstitial edema and pleural effusions Hold diuretics in the setting of elevated lactate/sepsis Daily weights Strict I&O monitoring #PETE BUN 48, creatinine 2.75 (baseline 1.7) Avoid nephrotoxic agents where possible K mildly elevated at 5.2 Trend BMP q4h for now Hold irbesartan #T2DM Last A1c at 6.8% on 10/30/2024 Patient is normally on Lantus 30u BID Dose reduced in the setting of PETE to Lantus 20u BID SSI; with target BSG range 110-140mg/dL, CF 20, carb ratio 8 T2DM diet BSG ACHS Adjust regimen as needed #Morbid obesity BMI 63.0 on arrival Chronic stable conditions: #CONSTANCE-CPAP HS #Paroxysmal atrial fibrillation-HOLD Coumadin; continue metoprolol #HLD-HOLD atorvastatin while on daptomycin Disposition: Admit to PCU telemetry Full code Heart healthy, T2DM diet VTE PPx: Hold warfarin in the setting of therapeutic INR History of Present Illness Chief Complaint: Weakness Primary Care Provider: Levi Denson DO Iveth is a 69-year-old female with PMH of chronic diastolic CHF, GI bleed, obesity (BMI 63), T2DM, tubular adenoma of the colon, A-fib with RVR, PAD, CKD, JOSUE, TIA, and secondary hyperparathyroidism. She presented via EMS on 11/22 after slipping out of her chair. No head strike or LOC. She was unable to get up on her own, and was a lift assist per EMS. She reports that her symptoms (generalized weakness, chills, and SOB) started last night around 7 PM, and gradually worsened. Patient is on 2L NC at baseline, and CPAP at night. She reports she has chronic SOB at rest and with exertion, as well as orthopnea. She thought originally that this was secondary to JOSUE, as she was told in the past that her iron was low. She then texted her sister today, reporting that she felt "sick". Patient ambulates with a walker at baseline. She reports that she took all her regular medicine today; no recent change in medications. No sick contacts. She denies fever, cough, congestion, abdominal pain, or nausea/vomiting/diarrhea. She denies prior history of DVT/PE. She reports she has no pain in her feet, and denies any drainage from her feet or history of MRSA infections. Patient is a former tobacco cigarette smoker, but quit 8 years ago. She denies any recent alcohol use. SpO2 was 86% on RA for EMS. Patient's SpO2 is 97% on 2L NC at time admission; BP is soft at 104/65, but vitals otherwise stable at time of admission. ED course: Doxycycline 100 mg IV NSS 1000 mL IV Zofran 4 mg IV Cefepime 2000 mg IV Daptomycin 375 mg IV ROS: Patient endorses chills, body-aches, headache, SOB at rest and with exertion (chronic), orthopnea, productive cough (clear sputum production), and chronic redness/swelling in the legs. Patient denies fever, night-sweats, dizziness, lightheadedness, chest pain, chest palpitations, abdominal pain, decreased urinary frequency, burning with urination, or blood in the urine/stool. Allergies Allergy/AdvReac Type Severity Reaction Status Date / Time amoxicillin Allergy Severe SOB, RASH Verified 10/30/24 15:10 Penicillins Allergy Severe SOB, RASH Verified 10/30/24 15:10 clarithromycin Allergy Intermediate "feels Verified 10/30/24 15:10 like flying high" clindamycin Allergy Intermediate "feels Verified 10/30/24 15:10 like flying high" fluconazole Allergy Intermediate "feels Verified 10/30/24 15:10 like flying high" sulfamethoxazole Allergy Intermediate "feels Verified 10/30/24 15:10 like flying high" trimethoprim Allergy Intermediate "feels Verified 10/30/24 15:10 like flying high" Bactrim Allergy Unknown UNKNOWN Verified 02/21/18 10:32 empagliflozin AdvReac Severe Verified 10/30/24 15:10 [From Jardiance] codeine AdvReac Mild ITCHING, Verified 10/30/24 15:10 NAUSEA Home Medications Medication Instructions Recorded Confirmed Type meclizine 12.5 mg tablet 12.5 mg PO TID PRN Dizziness 10 09/26/16 11/22/24 History days #30 tabs Wheelchair (Manual) (Manual #1 ea 08/04/21 11/22/24 Rx Wheelchair) pen needle, diabetic 31 gauge x #200 ea 10/09/22 11/22/24 Rx 3/16" (BD Ultra-Fine Mini Pen Needle) tklgqslz-xssk-yoyd 8 mg-folic 400 1 tab PO QAM 12/27/22 11/22/24 History mcg-K 50 mcg-lutein 300 mcg tablet (Centrum Silver Women) acetaminophen 500 mg capsule 1,000 mg PO UD PRN Pain 01/05/23 11/22/24 History ferrous sulfate 325 mg (65 mg 325 mg PO BID 01/05/23 11/22/24 History iron) tablet Oxygen Home #1 ea 01/19/23 11/22/24 Rx buspirone 5 mg tablet 5 mg PO TID PRN anxiety #60 tabs 06/28/23 11/22/24 Rx magnesium chloride 64 mg 64 mg PO BID #180 tabs 11/26/23 11/22/24 Rx (magnesium chloride) tablet,delayed release nystatin 100,000 unit/gram topical 1 applic topical BID PRN itching 01/11/24 11/22/24 Rx powder #60 grams metoprolol tartrate 25 mg tablet 25 mg PO BID 90 days #180 tabs 02/12/24 11/22/24 Rx jcjxksnv-zwm-kphtbo 5 mg-zeaxanth 1 cap PO DAILY 02/20/24 11/22/24 History 1 mg-bilberry 7.5 mg-herbal capsule ([employer] Health Formula) betamethasone dipropionate 0.05 % 1 applic topical BID #45 grams 03/31/24 11/22/24 Rx topical ointment bumetanide 2 mg tablet 2 mg PO BID #180 tabs 05/08/24 11/22/24 Rx insulin syringe-needle U-100 1 mL #200 ea 06/10/24 11/22/24 Rx 31 gauge x 5/16" (BD Insulin Syringe Ultra-Fine) blood sugar diagnostic (OneTouch #200 ea 06/14/24 11/22/24 Rx Ultra Test strips) flash glucose scanning reader #1 ea 06/14/24 11/22/24 Rx ([facility] [address] [place]) insulin glargine 100 unit/mL (3 30 unit (0.3 mL) subcut BID #30 mL 08/04/24 11/22/24 Rx mL) subcutaneous pen (Basaglar KwikPen U-100 Insulin) triamcinolone acetonide 0.1 % 1 applic topical .COMPLEX #30 grams 08/20/24 11/22/24 Rx topical ointment [id number]-bwbmdsvrrh-tadm See Rx Instructions topical 09/16/24 11/22/24 History vera-vits A,D,and E 20 %-3 % .COMPLEX PRN VAGINAL SX topical cream (Vagisil) miconazole nitrate 2 % vaginal 1 applic vaginal UD PRN DIRECTED 09/16/24 11/22/24 History cream (Monistat 7) mupirocin 2 % topical ointment 1 applic topical BID 09/16/24 11/22/24 History tacrolimus 0.1 % topical ointment 1 applic topical BID 09/16/24 11/22/24 History amiodarone 100 mg tablet 100 mg PO QAM #90 tabs 09/22/24 11/22/24 Rx albuterol sulfate 90 mcg/actuation 2 puff inhalation Q6H PRN 10/28/24 11/22/24 Rx aerosol inhaler Shortness Of Breath #18 grams insulin lispro 100 unit/mL 25 - 35 unit (0.25 - 0.35 mL) 11/18/24 11/22/24 Rx subcutaneous solution (Admelog U-) subcut UD #31.5 mL atorvastatin 40 mg tablet (Lipitor) 40 mg PO QAM #90 tabs 11/19/24 11/22/24 Rx Lactobacillus acidophilus 10 10,000 mmu cells PO DAILY 11/22/24 11/22/24 History billion cell capsule (Probiotic) apremilast 30 mg tablet (Otezla) 30 mg PO QAM 11/22/24 11/22/24 History calcitriol 0.25 mcg capsule 0.25 mcg PO 3XWK 11/22/24 11/22/24 History clotrimazole-betamethasone 1 1 applic topical UD PRN DIRECTED 11/22/24 11/22/24 History %-0.05 % topical cream ezetimibe 10 mg tablet 10 mg PO QAM 11/22/24 11/22/24 History irbesartan 150 mg tablet 150 mg PO QAM 11/22/24 11/22/24 History levothyroxine 50 mcg tablet 50 mcg PO UD 11/22/24 11/22/24 History warfarin 5 mg tablet (Jantoven) 2.5 mg PO 3XWK 11/22/24 11/22/24 History warfarin 5 mg tablet (Jantoven) 5 mg PO 4XWK 11/22/24 11/22/24 History Past Med/Surg History Problem List (Updated 11/22/24 @ 17:50 by Hao Bliss MD) Acute on chronic kidney failure (Acute) Acute respiratory distress (Acute) Cellulitis of leg, right (Acute) Severe sepsis (Acute) PETE (acute kidney injury) Chronic respiratory failure with hypoxia Cellulitis Sepsis Chronic diastolic CHF (congestive heart failure) Submental mass Abscess of neck LAD (lymphadenopathy), submental Class 3 obesity with alveolar hypoventilation and body mass index (BMI) of 50.0 to 59.9 in adult Class 3 severe obesity due to excess calories with body mass index (BMI) of 40.0 to 44.9 in adult Umbilical hernia Tubular adenoma of colon Controlled type 2 diabetes mellitus with kidney complication, with long-term current use of insulin Bright red blood per rectum Constipation Hemangioma Epistaxis Personal history of diabetic foot ulcer Left knee DJD Stage 3 chronic kidney disease Chronic venous insufficiency (Chronic) Vitamin D deficiency Ambulatory dysfunction Hyperkalemia (Acute) Psoriasis Obesity hypoventilation syndrome Hypertrophic toenail Callus of foot Periorbital hematoma of both eyes Airway obstruction, anatomic Respiratory insufficiency following shock, trauma, or surgery Dermatitis Tinea cruris Tinea corporis Folliculitis Atrial flutter with rapid ventricular response Olecranon bursitis, right elbow Chronic anticoagulation (Chronic) Neuropathy (Chronic) Diabetic induced Peripheral arterial disease Bilateral lower extremity edema (Chronic) Gastric ulcer Venous insufficiency of both lower extremities (Chronic) PAD (peripheral artery disease) (Acute) Obesity (Chronic) COPD (chronic obstructive pulmonary disease) (Chronic) Dyslipidemia (Chronic) H/O malignant neoplasm of female breast (Chronic) Stage 3b chronic kidney disease Anemia of chronic disease Iron deficiency anemia Secondary hyperparathyroidism of renal origin Spinal stenosis of lumbar region (Chronic) Hypothyroidism Medical History (Updated 11/22/24 @ 17:50 by Hao Bliss MD) Type 2 diabetes mellitus with renal complication CONSTANCE (obstructive sleep apnea) CPAP Hypertension On home oxygen therapy uses 2L O2 at night w/cpap and in the daytime prn Diabetic neuropathy Hx of gastric ulcer Depression Chronic pain of left knee DJD Osteoarthritis Degenerative disc disease Diabetes mellitus, type 2 On anticoagulant therapy coumadin daily Hyperlipidemia Atrial flutter hx of Chronic obstructive pulmonary disease inhaler prn Obesity Diastolic CHF Atrial fibrillation Paroxysmal. Cardioversion x 2. follows with Dr. Rapp---on coumadin. Surgical History Family history of reaction to anesthesia FATHER>NAUSEA AND DIZZINESS History of nasal cauterization History of colonoscopy with polypectomy Nausea and vomiting after administration of anesthetic agent with "extreme vertigo" History of total hysterectomy with bilateral salpingo-oophorectomy (BSO) History of lumpectomy of right breast benign History of carpal tunnel surgery of left wrist History of tooth extraction most teeth removed--full upper denture/partial lower History of cardioversion x2, [facility]; most recent 2019 Family History Sister Family history of reaction to anesthesia nausea/vomiting Hypothyroidism Father Family history of reaction to anesthesia nausea/vomiting Family hx colonic polyps Hypertension Mother Diabetes Hypertension Denies family history of Ovarian cancer Prostate cancer Myocardial infarction Breast cancer Colorectal cancer Social History Smoking Status: Former smoker Tobacco Type: Cigarettes Age Started Using Tobacco: 20; Age Quit Using Tobacco: 60; packs per day: 1; Second Hand Exposure: Yes (hx); Do You Dip or Chew Tobacco: No; Hx Alcohol Use: Yes Alcohol type: beer and wine Alcohol Intake Frequency: Monthly or Less Alcohol Intake Frequency Comment: stated "once in a blue rios, but not often" Hx Substance Use: No Preferred Language: Ukrainian Communication Ability: Effective Visual Impairment: Limited Hearing Ability: Hard of Hearing Traffic Court Referee Required: No Beliefs That Will Affect Care: None marital status: Single Current Living Situation: Parent and Family Current Living Situation Comment: BROTHER AND FATHER current occupational status: retired How many Children do You have: 0 Feels Safe at Home: Yes Diet: regular during the past year weight has: remained stable Dental Care, Regularly: Yes Physical Activity Frequency: Does not Exercise Seatbelt Use: always Sunscreen Use: No Assistive Devices: CPAP, Denture - Upper, Glasses, Oxygen - at Night, Walker and Wheelchair Review of Systems 2 Review of Systems: See HPI above Physical Exam 2 Physical Exam: General: Mild respiratory distress; lethargic; family at bedside; toxic- appearing; cooperative; SpO2 97% on 2L NC HEENT: normocephalic, atraumatic; no scleral icterus; PERRLA; vision and hearing intact Neck: supple; no lymphadenopathy; trachea midline Skin: warm, dry without signs of tenting; no cyanosis; no rashes, bruising, lesions, or erythema noted CV: chest wall NTP; RRR; S1/S2 normal; no murmurs/rubs/gallops; pulses intact and symmetric at radial, DP, and PT Lungs: Mild respiratory distress at baseline; conversational dyspnea;; symmetrical chest wall expansion; clear breath sounds across all lung bacon w/o adventitious sounds; no wheezing ABD: Soft, NTP; BS present; no rebound/guarding; distention secondary to body habitus MSK: no tics or fasciculations Lower extremities: Bilateral leg swelling, purple, with firm wooden texture (see photos below); the right lower extremity is erythematous and warm to touch when compared to the left; no signs of drainage Neuro: A&Ox3; normal mood and affect; fluent speech; no focal deficits; sensation grossly intact in the LEs b/l Results & Data Results & Data Vital Signs (Past 12 Hours) Vital Signs Temp Pulse Pulse Resp BP BP Pulse Ox 11/22/24 15:48 74 11/22/24 15:43 74 23 104/65 97 11/22/24 15:43 100 11/22/24 14:31 36.9 C 77 12 116/56 L 98 O2 Del Method O2 Flow Rate 11/22/24 15:48 11/22/24 15:43 Room Air 11/22/24 15:43 Nasal Cannula 2 11/22/24 14:31 Nasal Cannula 2 Laboratory Results Abnormal lab results 11/22/24 Range/Units 14:40 WBC 29.27 H (4.8-10.8) K/ul RBC 3.30 L (4.20-5.40) M/uL Hgb 9.8 L (12.0-16.0) g/dl Hct 31.8 L (37.0-47.0) % MCHC 30.8 L (32.0-36.0) g/dL RDW Std Deviation 59.3 H (36.4-46.3) fL RDW Coeff of Shannan 16.7 H (11.5-14.5) % Neut # (Auto) 27.59 H (1.40-6.50) K/uL Lymph # (Auto) 0.39 L (1.20-3.40) K/uL Immature Gran # (Auto) 0.86 H (0.01-0.20) K/uL PT 42.9 H (9.0-12.0) Seconds INR 4.5 H (0.9-1.1) APTT 47 H (21-31) Seconds Potassium 5.2 H (3.5-5.1) mmol/L Chloride 95 L (98-107) mmol/L BUN 48 H (6-23) mg/dl Creatinine 2.75 H (0.6-1.2) mg/dl Glucose 170 H (70-99(Fasting)) mg/dl Troponin I High Sens 20.5 H (0-14) pg/ml B-Natriuretic Peptide 540 H (0-100) pg/ml Procalcitonin 43.30 H (0-0.5) ng/ml Diagnostic Findings Chest X-Ray 11/22/24 14:38 CHEST (AP PORTABLE): Reason for exam: Shortness of breath FINDINGS: Comparison made to a previous study dated 01/27/2024. Heart is moderately enlarged with central pulmonary venous hypertension and mild interstitial edema as well as small bilateral pleural effusions, right side larger than left. IMPRESSION: Moderate CHF with early interstitial edema and pleural effusions. Electronically signed by Devonte Guadalupe 11-22-2024 3:51 PM ECG Additional Comments: ECG revealed sinus rhythm with first-degree AV block at 73 BPM; QTc 467 Code Status & VTE Plan Code Status Full code (per Dr. Phillips discussion with patient; see attestation) VTE Prophylaxis Plan VTE Prophylaxis will be ordered: Yes Supervising Physician Co-Signing Physician Notes I have personally seen, evaluated and examined the patient. I have also personally discussed the management of the patient with the resident physician/HAJA and I agree with the exam findings documented in the history and physical examination and the documented assessment and plan unless otherwise stated below. Brief Exam: In general very pleasant 69-year-old female she is alert and oriented x 3 at time of my examination. She denies any pain. She states that she just feels weak. In terms of podiatry care she states she used to go to podiatry but has not for some time. HEENT normocephalic atraumatic. Neck: Greater than 20 inches in circumference consistent with her obstructive sleep apnea diagnosis. CPAP is ordered. Heart: Regular I do not appreciate any ectopy murmur or rub but exam is somewhat limited due to her body habitus. Lungs: Coarse bilaterally. But exam is somewhat again limited due to her AP diameter. Abdomen: Morbidly obese otherwise equivocal given her large pannus. It is nontender. Extremities: As pictured above. Severe changes of chronic venous stasis however it does appear there is a super plus cellular lightest of the right lower extremity as pictured with erythema extending above the purple discoloration of the venous stasis. This is warm to the touch. She does have what appears to be an abrasion on her lateral aspect of the second digit of the right foot but there appears to be no rashmi wound on close inspection with. Neurologically: She is alert and oriented with no focal deficit except globalized weakness she is chronically debilitated and typically ambulates with a walker. Assessment/plan: As described ER physician did discuss with pharmacy in terms of antibiotic cocktail. She has got multiple antibiotic allergies which most of which do not appear to be rashmi allergies. However the combination from pharmacy was recommended for daptomycin doxycycline and cefepime. Will continue that cocktail till culture data is back. MRSA screen was negative. If the patient should decompensate from a respiratory standpoint we could consider a CT of the chest unenhanced to rule out occult pneumonia. Chest x-ray is extraordinarily limited given her AP diameter. She does have a history of peripheral vascular disease. She does see the vascular clinic. I see no vascular studies here recently. If she does not improve empirically with the IV antibiotic therapy with the right lower extremity cellulitis arterial Dopplers of the lower extremity should be considered. Please refer to orders for further plan PG Care Time/CCT Total # of Minutes Spent Total Time Spent with Patient: Total time spent is greater than 50% in coordination of care (as documented) at patient's floor/unit and/or counseling patient: Coding [place] [address] INT INP/OBS CARE 3/75MIN Patient Type Established Medical Decision Making High Complexity Diagnoses Sepsis A41.9 Cellulitis L03.90 Chronic respiratory failure with hypoxia J96.11 PETE (acute kidney injury) N17.9
[2024-11-22 17:13] LABS: Appearance Urine Clear (Clear); Bacteria Urine Automated None Seen (None Seen); Bilirubin Urine Negative (Negative); Blood Urine Negative (Negative); Cast Urine Automated >20 /lpf (0-2); Color Urine Dark Yellow; Epithelial Cell Urine Auto 0-2 /hpf (0-2); Glucose Urine UA Negative (Negative); Hyaline Casts Urine Present /lpf (None Presnt); Ketones Urine Trace (Negative); Leukocyte Esterase Urine Negative (Negative); Nitrite Urine Negative (Negative); Protein Urine 1+ (Negative); RBC Urine Automated 0-2 /hpf (0-2); Specific Gravity Urine 1.021 (1.000-1.030); Urobilinogen Urine Negative (Negative); WBC Urine Automated 0-5 /hpf (0-5)
[2024-11-22 18:34] LABS: Calcium 8.6 mg/dl (8.6-10.3); Potassium 5.3 mmol/L (3.5-5.1)
[2024-11-22 18:40] LABS: BUN Creatinine Ratio 17.8 (10-20); Creatinine Clr Calc Pharmacy 29.2 ml/min; Troponin I High Sensitivity 20.8 pg/ml (0-14)
[2024-11-22 20:57] LABS: C Reactive Protein 26.7 mg/dl (0-0.5)
[2024-11-22] MEDS ORDERED: [UNRECOGNIZED DRUG - OTHER] TOP PRN (21:17)
[2024-11-22] MEDS ORDERED: GLUCOSE 40% GEL 15 GM TUBE PO PRN (21:17)
[2024-11-22] MEDS ORDERED: GLUCOSE 10 TAB/TUBE PO PRN (21:17)
[2024-11-22] MEDS ORDERED: MICONAZOLE NITRATE 2% VAG CR 45 GM TUBE PV PRN (21:17)
[2024-11-22] MEDS ORDERED: ALBUTEROL HFA 8 GM INHALER INH PRN (21:17)
[2024-11-22] MEDS ORDERED: busPIRone 5 MG TAB PO PRN (21:17)
[2024-11-22] MEDS ORDERED: GLUCAGON FOR INJ 1 MG VIAL SQ PRN (21:17)
[2024-11-22] MEDS: ONDANSETRON INJ 2 MG/ML 2 ML VIAL IV PRN (22:10)
[2024-11-22] MEDS: MAGNESIUM CHLORIDE W/CALCIUM 64MG DELAYED REL TAB PO SCH (22:31)
[2024-11-22] MEDS: METOPROLOL TARTRATE 25 MG TAB PO SCH (22:32)
[2024-11-22] MEDS: FLUOCINONIDE 0.05% OINT 15 GM TUBE EXT SCH (22:32)
[2024-11-22] MEDS: INSULIN ASPART PER UNIT CHARGE SC SCH (22:36)
[2024-11-22] MEDS: LANTUS PER UNIT CHARGE SQ SCH (22:36)
[2024-11-22] MEDS ORDERED: CEFEPIME 2000MG 2,000 MG/20 ML SYR IV SCH (23:15)
[2024-11-22 23:28] LABS: Calcium 9.2 mg/dl (8.6-10.3); Creatinine Clr Calc Pharmacy 29.6 ml/min; Potassium 5.5 mmol/L (3.5-5.1)
[2024-11-23] MEDS: DOXYCYCLINE HYCLATE 100 MG in DEXTROSE 5% MINI-B 100 ML IV SCH (03:19)
[2024-11-23] MEDS: CEFEPIME 1000MG 1,000 MG/10 ML SYR IV SCH (03:19)
[2024-11-23] MEDS: MECLIZINE 12.5 MG TAB PO PRN (03:43)
[2024-11-23] MEDS: LEVOTHYROXINE SODIUM 50 MCG TABLET PO SCH (06:02)
[2024-11-23 07:53] LABS: Hematocrit (blood only) 28.5 % (37.0-47.0); Hemoglobin 8.6 g/dl (12.0-16.0); Mean Corpuscular Hemoglobin 29.9 pg (25.0-34.0); Mean Corpuscular Hgb Conc 30.2 g/dL (32.0-36.0); Mean Platelet Volume 10.5 fL (9.4-12.4); Nucleated RBC # (auto) 0.03 K/uL (0.00-0.12); Nucleated RBC % (auto) 0.1 %; Platelet Count 229 K/uL (130-400); RDW Coefficient of Variation 16.8 % (11.5-14.5); RDW Standard Deviation 60.8 fL (36.4-46.3); Red Blood Count 2.88 M/uL (4.20-5.40); White Blood Count 33.01 K/ul (4.8-10.8)
[2024-11-23 08:03] LABS: BUN Creatinine Ratio 21.3 (10-20); Calcium 8.8 mg/dl (8.6-10.3); Creatinine Clr Calc Pharmacy 26.7 ml/min; Potassium 5.4 mmol/L (3.5-5.1)
[2024-11-23 08:17] LABS: INR 4.9 (0.9-1.1); Prothrombin Time 46.6 Seconds (9.0-12.0)
[2024-11-23 08:30] LABS: C Reactive Protein 36.22 mg/dl (0-0.5)
[2024-11-23 08:33] LABS: Basophilic Stippling 1+; Basophils # (auto) 0.05 K/uL (0.00-0.20); Basophils % (auto) 0.2 %; Dohle Bodies 1+; Immature Granulocytes # (auto) 1.33 K/uL (0.01-0.20); Lymphocytes # (auto) 0.85 K/uL (1.20-3.40); Lymphocytes % (auto) 2.6 %; Monocytes # (auto) 0.89 K/uL (0.11-0.59); Monocytes % (auto) 2.7 %; Neutrophils # (auto) 29.89 K/uL (1.40-6.50); Neutrophils % (auto) 90.5 %; Polychromasia 1+; Stomatocytes 1+
[2024-11-23] MEDS: AMIODARONE 200 MG TAB PO SCH (08:59)
[2024-11-23] MEDS: EZETIMIBE 10 MG TAB PO SCH (08:59)
--- NOTE | 2024-11-23 09:20 | Electrocardiogram Report ---
Test Reason : Blood Pressure : */* mmHG Vent. Rate : 73 BPM Atrial Rate : 73 BPM P-R Int : 250 ms QRS Dur : 92 ms QT Int : 424 ms P-R-T Axes : 87 33 32 degrees QTcB Int : 467 ms Poor data quality, interpretation may be adversely affected Sinus rhythm with 1st degree A-V block Otherwise normal ECG When compared with ECG of 22-Jan-2024 12:43, Vent. rate has increased by 25 bpm Incomplete left bundle block is no longer Present QT has shortened Confirmed by Cristóbal Willard ([id number]) on 11/23/2024 9:19:47 AM Referred By: Confirmed By: Cristóbal Willard
[2024-11-23] MEDS: PATIROMER CALCIUM SORBITEX 8.4 GM PACK PO ONE (10:17)
[2024-11-23] MEDS: SODIUM CHLORIDE 0.9% 1,000 ML IV SCH (12:21)
[2024-11-23 14:44] LABS: Base Excess VBG 3.9 mEq/L; HCO3 VBG 35 mmol/L; Oxygen Saturation VBG 78.3 %; PCO2 VBG 87 mmHg (38-50); PO2 VBG 49 mmHg; pH VBG 7.21 (7.36-7.41)
[2024-11-23 15:02] LABS: BUN Creatinine Ratio 20.2 (10-20); Calcium 8.7 mg/dl (8.6-10.3); Creatinine Clr Calc Pharmacy 24.3 ml/min; Potassium 5.7 mmol/L (3.5-5.1)
[2024-11-23] MEDS ORDERED: NovoLIN-R INSULIN PER UNIT CHARGE IV STA (15:16)
--- NOTE | 2024-11-23 15:20 | Hospitalist Progress Note ---
Date of Service November 23, 2024 Assessment & Plan (1) Acute on chronic respiratory failure with hypoxia and hypercapnia: Plan: patient is typically on home auto-BIPAP with blended O2 notes from the pulmonary office noted she uses O2 during the daytime prn VBG today with decompensated hypercapnic respiratory failure acute decompensation is in the setting of CONSTANCE, OHS, COPD, and ?pulm edema from PETE & severe sepsis overnight patient was receiving CPAP she also was receiving CPAP this am change to BIPAP now serial blood gases treat underlying sepsis defer additional management to supervisor plate pasting (2) Acute on chronic kidney failure: Plan: patient's baseline Creatinine is ~1.7 presented on 11/22 with Cr 2.75 this am was 3, and repeat early afternoon was 3.[address] saul gentle fluids provided this am in the setting of her severe sepsis and PETE defer fluid management to supervisor plate pasting (3) Hyperkalemia: Plan: 2nd to PETE this am her K was 5.4 patiromer x 1 dose given and gentle fluids started K now 5.7 with worsening renal function gave - * albuterol x 2 nebs * regular insulin 10 units IV x 1 along with amp D50 * lokelma TID started * ordered bicarb infusion in ca of NSS but critical care team asked that I defer on such cont serial BMPs (4) Cellulitis of leg, right: Plan: severe RLE cellulitis cause of severe sepsis cont cefepime cont daptomycin stop doxy no clinical evidence of nec fasc or deeper infection follow blood cx's (5) Severe sepsis: Plan: source - RLE cellulitis fortunately her BPs are acceptable she has evidence of ATN/PETE along with hypercapnic resp failure cont broad-spectrum IV abx transferring patient to ICU due to worsening resp failure & worsening PETE (6) PETE (acute kidney injury): Plan: 2nd to sepsis-associated ATN thus far no response to IV fluids & supportive care Cr this afternoon 3.3 transferring to ICU (7) Chronic diastolic CHF (congestive heart failure): (8) Controlled type 2 diabetes mellitus with kidney complication, with long-term current use of insulin: Plan: a1c early October <7% cont basal-bolus insulin (9) Chronic venous insufficiency: Plan: severe typically on bumex 2mg BID diuretics on hold in the setting of PETE this is, amongst other factors, a major risk factor for her RLE Cellulitis (10) COPD (chronic obstructive pulmonary disease): Plan: without exacerbation at this time defer on systemic steroids (11) Hypothyroidism: Plan: TSH 1.8 cont synthroid (12) CONSTANCE (obstructive sleep apnea): Plan: BIPAP (13) Morbid obesity with BMI of 60.0-69.9, adult: Plan: BMI 62.9 (14) PAF (paroxysmal atrial fibrillation): Plan: NSR thus far on tele cont amiodarone holding warfarin due to supratherapeutic INR repeat INR am cont meto tartrate as BP allows Plan updated pt's sister extensively by phone this evening she is aware of ICU transfer discussed severe sepsis, resp failure, hyperkalemia, PETE, etc. appreciate critical care assistance care d/w Dr Wilks critical care provided; time - 60 minutes management of PETE, hyperkalemia, and hypercapnic resp failure in setting of sever sepsis Admission and Anticipated Discharge Date Admission Date: November 22, 2024 Subjective saw patient mid-morning today she was sleeping upon arrival I was able to wake her she was tired but able to answer questions she denied any pain in the RLE or LLE denied pain in either foot she reports dyspnea but "is always short of breath" denied cough has no appetite - did not eat breakfast had little appetite or intake at home before coming to the hospital reports she only uses oxygen at night-time with her CPAP device and prn during t day UOP has been low overnight tele - NSR Review of Systems Review of Systems: gen - weak, fatigued, no appetite cv - no chest pain pulm - mild dyspnea GI - no abd pain but some nausea Physical Exam Physical Exam: gen - morbidly obese, looks ill, sleepy neck - unable to assess for JVD due to neck size mouth - MM very dry heart - RRR, s1 s2, no murmur lungs - decreased BS bases, poor airation, no obvious rales abd - soft NT ND BS+, probable ric-umbilical hernia ext - severe lymphedema changes b/l legs with severe venous stasis changes b/l shins and b/l feet (feet with thick skin/keratosis/xerosis) skin - cellulitis of RLE from the right knee down to the right foot; warm erythema present; no signs of nec fasc; no tenderness b/l legs psych - oriented to person/place but sleepy Results & Data Results & Data Vital Signs (Past 12 Hours) Vital Signs Temp Pulse Resp BP Pulse Ox O2 Del Method O2 Flow Rate 11/23/24 14:57 36.5 C 62 16 111/54 L 96 Nasal Cannula 11/23/24 11:13 36.5 C 64 18 116/58 L 96 Room Air 11/23/24 09:28 Nasal Cannula 3 11/23/24 07:39 36.6 C 73 20 110/56 L 98 Room Air 11/23/24 03:42 36.7 C 72 18 129/71 99 Nasal Cannula 2 Laboratory Results Laboratory Results - last 24 hr 11/22/24 11/22/24 11/23/24 22:29 22:33 07:15 WBC 33.01 H* RBC 2.88 L Hgb 8.6 L POC Hgb Hct 28.5 L POC Hct MCV 99.0 MCH 29.9 MCHC 30.2 L RDW Std Deviation 60.8 H RDW Coeff of Shannan 16.8 H Plt Count 229 MPV 10.5 Immature Gran % (Auto) 4.0 Neut % (Auto) 90.5 Lymph % (Auto) 2.6 [place] % (Auto) 2.7 Eos % (Auto) 0.0 Baso % (Auto) 0.2 Neut # (Auto) 29.89 H Lymph # (Auto) 0.85 L [place] # (Auto) 0.89 H Eos # (Auto) 0.00 Baso # (Auto) 0.05 Immature Gran # (Auto) 1.33 H Absolute Nucleated RBC 0.03 Nucleated RBC % (auto) 0.1 Dohle Bodies 1+ Polychromasia 1+ Basophilic Stippling 1+ Stomatocytes 1+ PT 46.6 H INR 4.9 H POC pH POC pCO2 POC pO2 POC HCO3 POC Total CO2 POC Base Excess POC ABG O2 Sat VBG pH VBG pCO2 VBG pO2 VBG HCO3 VBG O2 Saturation VBG Base Excess POC Sodium Sodium 138 138 POC Potassium Potassium 5.5 H 5.4 H Chloride 97 L 98 Carbon Dioxide 34 H 35 H Anion Gap 7 5 BUN 57 H 64 H Creatinine 2.72 H 3.01 H Est Cr Clr Drug Dosing 29.6 26.7 eGFR 18.35 16.25 BUN/Creatinine Ratio 21.0 H 21.3 H Glucose 160 H 124 H POC Glucose 235 H Calcium 9.2 8.8 Ammonia C-Reactive Protein 36.22 H Urine Osmolality Ur Random Creatinine Ur Random Sodium Ur Random Potassium Ur Random Chloride 11/23/24 11/23/24 11/23/24 07:27 11:05 14:31 WBC RBC Hgb POC Hgb Hct POC Hct MCV MCH MCHC RDW Std Deviation RDW Coeff of Shannan Plt Count MPV Immature Gran % (Auto) Neut % (Auto) Lymph % (Auto) [place] % (Auto) Eos % (Auto) Baso % (Auto) Neut # (Auto) Lymph # (Auto) [place] # (Auto) Eos # (Auto) Baso # (Auto) Immature Gran # (Auto) Absolute Nucleated RBC Nucleated RBC % (auto) Dohle Bodies Polychromasia Basophilic Stippling Stomatocytes PT INR POC pH POC pCO2 POC pO2 POC HCO3 POC Total CO2 POC Base Excess POC ABG O2 Sat VBG pH 7.21 L VBG pCO2 87 H VBG pO2 49 VBG HCO3 35 VBG O2 Saturation 78.3 VBG Base Excess 3.9 POC Sodium Sodium 135 L POC Potassium Potassium 5.7 H Chloride 96 L Carbon Dioxide 33 H Anion Gap 6 BUN 67 H Creatinine 3.31 H D Est Cr Clr Drug Dosing 24.3 eGFR 14.50 BUN/Creatinine Ratio 20.2 H Glucose 115 H POC Glucose 137 H 139 H Calcium 8.7 Ammonia 19.0 C-Reactive Protein Urine Osmolality Ur Random Creatinine Ur Random Sodium Ur Random Potassium Ur Random Chloride Diagnostic Findings Microbiology 11/22/24 16:09 Blood Aerobic Blood Culture - Preliminary No growth in Aerobic bottle after 24 hours. 11/22/24 16:09 Blood Anaerobic Blood Culture - Preliminary No growth in Anaerobic bottle after 24 hours. 11/22/24 15:40 Blood Aerobic Blood Culture - Preliminary No growth in Aerobic bottle after 24 hours. 11/22/24 15:40 Blood Anaerobic Blood Culture - Preliminary No growth in Anaerobic bottle after 24 hours. PG Care Time/CCT Total # of Minutes Spent Total Time Spent with Patient: Total time spent is greater than 50% in coordination of care (as documented) at patient's floor/unit and/or counseling patient: Critical Care Time: Yes Total Critical Care Time: 60 Coding Level of Care Code None Diagnoses Acute on chronic respiratory failure with hypoxia and hypercapnia J96.21; J96.22 Acute on chronic kidney failure N17.9; N18.9 Acute renal failure type: unspecified Chronic kidney disease stage: unspecified stage Hyperkalemia E87.5 Cellulitis of leg, right L03.115 Severe sepsis A41.9; R65.20 PETE (acute kidney injury) N17.9 Chronic diastolic CHF (congestive heart failure) I50.32 Controlled type 2 diabetes mellitus with kidney complication, with long-term current use of insulin E11.29; Z79.4 Chronic venous insufficiency I87.2 COPD (chronic obstructive pulmonary disease) J44.9 Hypothyroidism E03.9 CONSTANCE (obstructive sleep apnea) G47.33 Morbid obesity with BMI of 60.0-69.9, adult E66.01; Z68.44 PAF (paroxysmal atrial fibrillation) I48.0 Additional Codes Critical Care Time - Critical Care Time: Yes ([id number]) (2) Acute on chronic kidney failure Acute renal failure type: unspecified Chronic kidney disease stage: unspecified stage Qualified Code(s): N17.9 - Acute kidney failure, unspecified; N18.9 - Chronic kidney disease, unspecified
[2024-11-23] MEDS: SODIUM ZIRCONIUM CYCLOSILICATE 10 GM PACKET PO SCH (15:25)
[2024-11-23] MEDS: ALBUTEROL 0.083% NEBU SOLN 3 ML VIAL NEB STA (15:30)
[2024-11-23] MEDS: INSULIN HUMAN REGULAR PER UNIT 10 UNITS in SYRINGE 9.9 ML IV ONE (15:37)
[2024-11-23] MEDS: DEXTROSE 50% 50 ML SYRINGE IV STA (15:37)
[2024-11-23] MEDS: SODIUM BICARBONATE 8.4% 100 MEQ in WATER, STERILE 1,000 ML IV SCH (15:37)
--- NOTE | 2024-11-23 15:42 | Critical Care Consultation ---
Date of Consultation November 23, 2024 Assessment & Plan (1) Acute on chronic kidney failure: (2) Acute on chronic respiratory failure with hypoxia and hypercapnia: (3) Severe sepsis: (4) Cellulitis of leg, right: (5) Umbilical hernia: (6) Controlled type 2 diabetes mellitus with kidney complication, with long-term current use of insulin: (7) Hemangioma: (8) Hyperkalemia: (9) Psoriasis: (10) Obesity hypoventilation syndrome: (11) Atrial flutter: (12) Atrial fibrillation: (13) COPD (chronic obstructive pulmonary disease): Plan Reason Critically Ill: 69-year-old female was admitted to the hospital generalized weakness chills and shortness of breath Past medical history: CONSTANCE on BiPAP 06/03, HFpEF, morbid obesity, diabetes type 2, A-fib, CKD, TIA, hyperparathyroidism On the floor patient was found to be hypercapnic and obtunded Neuro - [facility] ICU: Unable to assess --Metabolic encephalopathy Multifactorial Acute on chronic hypercapnic respiratory failure Sepsis from cellulitis TSH within normal limit, sodium, glucose within normal limit BUN is elevated at 67, not enough to cause encephalopathy Ammonia within normal limit Cardiac - 2D echo 11/07/2022: EF 60-65%, LA mildly dilated, RV not well-visualized --Acute on chronic HFpEF BNP 540 at the time of presentation On bumetanide 2 mg twice daily at home --History of hypertension and dyslipidemia On irbesartan 150 mg, metoprolol 25 mg twice daily and atorvastatin 40 mg at home --History of A-fib On Coumadin and amiodarone at home Respiratory - -- Acute on chronic hypercapnic hypoxic respiratory failure On 2 L oxygen at home COVID-19, influenza A/B as well as RSV negative on 11/22/2024 Nasal MRSA negative --CONSTANCE Supposed to be on CPAP at home She says she does not use it at home as she is not able to reach the mask. I do think she would benefit from a BiPAP at home rather than CPAP. Setting would be 06/04 with a backup rate of 18. GI - -- No acute issues RENAL/LYTES - -- PETE on CKD Baseline creatinine 2.75 Monitor BUN/creatinine Avoid nephrotoxic medications Strict ins and outs --Hyperkalemia Patient will be n.p.o. because of mental status She will need potassium binders ENDO - --Hypothyroidism On levothyroxine 50 mcg at home TSH within normal limit on this admission -- ICU hypoglycemia protocol HEME - -- Supratherapeutic INR Warfarin on hold --Normocytic anemia Monitor H&H ID - -- Sepsis secondary to cellulitis of the right lower extremity Procalcitonin 43.3 History of MSSA foot infection On antibiotics --Prophylaxis VTE: Warfarin GI: None Lines: Peripheral Diet: N.p.o. Plan: Will place a Ng catheter in for strict in and out Change patient's CPAP to BiPAP with setting 16/6, can increase EPAP to aim for tidal volume around 450 with backup respiratory rate of 18 Chest x-ray shows pulmonary vascular congestion could be from pulmonary hypertension as well as pulmonary edema With the clinical picture of PETE as well as fluid overload need to be very judicious with IV fluids. Patient is more alert. Will repeat ABG in 15-20 minutes. I think the most tomorrow thing would be to give potassium binders to the patient, currently she is on Lokelma There is no acute signs of bleeding, continue to hold warfarin, no need for active reversal I did inquire with the patient regarding her CODE STATUS and she says she has she would be agreeable to intubation if need be Continue with broad-spectrum antibiotic for right lower extremity cellulitis. Currently on Dapto, cefepime. I will discontinue doxycycline Case was discussed with primary team I have personally spent 62 minutes of critical care time in the direct management of this patient. This is a life/limb threatening event. This includes time spent evaluating patient, direct bedside care, chart review, placing orders, interpretation of diagnostic studies, discussion with consultants, patient, and family members, as well as other required patient management activities. This time is exclusive of all separately billable procedures, and teaching time and separate from and in addition to any other critical care service time. History of Present Illness Attending Physician: Leonardo Purdy MD History of Present Illness 69-year-old female was admitted to the hospital generalized weakness chills and shortness of breath Past medical history: CONSTANCE on BiPAP 16/5, HFpEF, morbid obesity, diabetes type 2, A-fib, CKD, TIA, hyperparathyroidism On the floor patient was found to be hypercapnic and obtunded At the time of examination in the ICU, patient was already on BiPAP 17/5, 40% with backup rate of 18. She was saturating 100% She was getting tidal volumes are somewhere around 420. When she was awake and taking but it went up to 500. She was more alert as per the nurses taking care of her. She was able to answer all the questions appropriately. She was moving bilateral lower extremities as well as upper extremities. Denies any abdominal pain. No headache, no blurry vision No nausea or vomiting Social history: > 25 pack-year smoking history Allergies Allergy/AdvReac Type Severity Reaction Status Date / Time amoxicillin Allergy Severe SOB, RASH Verified 10/30/24 15:10 Penicillins Allergy Severe SOB, RASH Verified 10/30/24 15:10 clarithromycin Allergy Intermediate "feels Verified 10/30/24 15:10 like flying high" clindamycin Allergy Intermediate "feels Verified 10/30/24 15:10 like flying high" fluconazole Allergy Intermediate "feels Verified 10/30/24 15:10 like flying high" sulfamethoxazole Allergy Intermediate "feels Verified 10/30/24 15:10 like flying high" trimethoprim Allergy Intermediate "feels Verified 10/30/24 15:10 like flying high" Bactrim Allergy Unknown UNKNOWN Verified 02/21/18 10:32 empagliflozin AdvReac Severe Verified 10/30/24 15:10 [From Jardiance] codeine AdvReac Mild ITCHING, Verified 10/30/24 15:10 NAUSEA Home Medications Medication Instructions Recorded Confirmed Type meclizine 12.5 mg tablet 12.5 mg PO TID PRN Dizziness 10 09/26/16 11/22/24 History days #30 tabs Wheelchair (Manual) (Manual #1 ea 08/04/21 11/22/24 Rx Wheelchair) pen needle, diabetic 31 gauge x #200 ea 10/09/22 11/22/24 Rx 3/16" (BD Ultra-Fine Mini Pen Needle) zrztaktq-qvce-xlys 8 mg-folic 400 1 tab PO QAM 12/27/22 11/22/24 History mcg-K 50 mcg-lutein 300 mcg tablet (Centrum Silver Women) acetaminophen 500 mg capsule 1,000 mg PO UD PRN Pain 01/05/23 11/22/24 History ferrous sulfate 325 mg (65 mg 325 mg PO BID 01/05/23 11/22/24 History iron) tablet Oxygen Home #1 ea 01/19/23 11/22/24 Rx buspirone 5 mg tablet 5 mg PO TID PRN anxiety #60 tabs 06/28/23 11/22/24 Rx magnesium chloride 64 mg 64 mg PO BID #180 tabs 11/26/23 11/22/24 Rx (magnesium chloride) tablet,delayed release nystatin 100,000 unit/gram topical 1 applic topical BID PRN itching 01/11/24 11/22/24 Rx powder #60 grams metoprolol tartrate 25 mg tablet 25 mg PO BID 90 days #180 tabs 02/12/24 11/22/24 Rx fjfgukam-dmc-zbfkig 5 mg-zeaxanth 1 cap PO DAILY 02/20/24 11/22/24 History 1 mg-bilberry 7.5 mg-herbal capsule ([employer] Formula) betamethasone dipropionate 0.05 % 1 applic topical BID #45 grams 03/31/24 11/22/24 Rx topical ointment bumetanide 2 mg tablet 2 mg PO BID #180 tabs 05/08/24 11/22/24 Rx insulin syringe-needle U-100 1 mL #200 ea 06/10/24 11/22/24 Rx 31 gauge x 5/16" (BD Insulin Syringe Ultra-Fine) blood sugar diagnostic (OneTouch #200 ea 06/14/24 11/22/24 Rx Ultra Test strips) flash glucose scanning reader #1 ea 06/14/24 11/22/24 Rx (FreeStyle [place] [address] [place]) insulin glargine 100 unit/mL (3 30 unit (0.3 mL) subcut BID #30 mL 08/04/24 11/22/24 Rx mL) subcutaneous pen (Basaglar KwikPen U-100 Insulin) triamcinolone acetonide 0.1 % 1 applic topical .COMPLEX #30 grams 08/20/24 11/22/24 Rx topical ointment ceafxcblgl-lxiyslofko-gmlw See Rx Instructions topical 09/16/24 11/22/24 History vera-vits A,D,and E 20 %-3 % .COMPLEX PRN VAGINAL SX topical cream (Vagisil) miconazole nitrate 2 % vaginal 1 applic vaginal UD PRN DIRECTED 09/16/24 11/22/24 History cream (Monistat 7) mupirocin 2 % topical ointment 1 applic topical BID 09/16/24 11/22/24 History tacrolimus 0.1 % topical ointment 1 applic topical BID 09/16/24 11/22/24 History amiodarone 100 mg tablet 100 mg PO QAM #90 tabs 09/22/24 11/22/24 Rx albuterol sulfate 90 mcg/actuation 2 puff inhalation Q6H PRN 10/28/24 11/22/24 Rx aerosol inhaler Shortness Of Breath #18 grams insulin lispro 100 unit/mL 25 - 35 unit (0.25 - 0.35 mL) 11/18/24 11/22/24 Rx subcutaneous solution (Admelog U-) subcut UD #31.5 mL atorvastatin 40 mg tablet (Lipitor) 40 mg PO QAM #90 tabs 11/19/24 11/22/24 Rx Lactobacillus acidophilus 10 10,000 mmu cells PO DAILY 11/22/24 11/22/24 History billion cell capsule (Probiotic) apremilast 30 mg tablet (Otezla) 30 mg PO QAM 11/22/24 11/22/24 History calcitriol 0.25 mcg capsule 0.25 mcg PO 3XWK 11/22/24 11/22/24 History clotrimazole-betamethasone 1 1 applic topical UD PRN DIRECTED 11/22/24 11/22/24 History %-0.05 % topical cream ezetimibe 10 mg tablet 10 mg PO QAM 11/22/24 11/22/24 History irbesartan 150 mg tablet 150 mg PO QAM 11/22/24 11/22/24 History levothyroxine 50 mcg tablet 50 mcg PO UD 11/22/24 11/22/24 History warfarin 5 mg tablet (Jantoven) 2.5 mg PO 3XWK 11/22/24 11/22/24 History warfarin 5 mg tablet (Jantoven) 5 mg PO 4XWK 11/22/24 11/22/24 History Patient History Medical History (Updated 11/23/24 @ 16:05 by Davin Wilks MD, [facility]) Type 2 diabetes mellitus with renal complication CONSTANCE (obstructive sleep apnea) CPAP Hypertension On home oxygen therapy uses 2L O2 at night w/cpap and in the daytime prn Diabetic neuropathy Hx of gastric ulcer Depression Chronic pain of left knee DJD Osteoarthritis Degenerative disc disease Diabetes mellitus, type 2 On anticoagulant therapy coumadin daily Hyperlipidemia Atrial flutter hx of Chronic obstructive pulmonary disease inhaler prn Obesity Diastolic CHF Atrial fibrillation Paroxysmal. Cardioversion x 2. follows with Dr. Rapp---on coumadin. Surgical History Family history of reaction to anesthesia FATHER>NAUSEA AND DIZZINESS History of nasal cauterization History of colonoscopy with polypectomy Nausea and vomiting after administration of anesthetic agent with "extreme vertigo" History of total hysterectomy with bilateral salpingo-oophorectomy (BSO) History of lumpectomy of right breast benign History of carpal tunnel surgery of left wrist History of tooth extraction most teeth removed--full upper denture/partial lower History of cardioversion , [facility]; most recent 2019 Family History Sister Family history of reaction to anesthesia nausea/vomiting Hypothyroidism Father Family history of reaction to anesthesia nausea/vomiting Family hx colonic polyps Hypertension Mother Diabetes Hypertension Denies family history of Ovarian cancer Prostate cancer Myocardial infarction Breast cancer Colorectal cancer Social History Smoking Status: Former smoker Tobacco Type: Cigarettes Age Started Using Tobacco: 20; Age Quit Using Tobacco: 60; packs per day: 1; Second Hand Exposure: Yes; Do You Dip or Chew Tobacco: No; Hx Alcohol Use: No Hx Substance Use: No Preferred Language: Lao Communication Ability: Effective Visual Impairment: Limited Hearing Ability: Hard of Hearing [employer] Math [employer] Required: No Beliefs That Will Affect Care: None marital status: Single Current Living Situation: Parent and Family Current Living Situation Comment: BROTHER AND FATHER current occupational status: retired How many Children do You have: 0 Other Information That Helps Us Care for You: No Feels Safe at Home: Yes Safety Concerns: Feels Safe At This Time Diet: regular during the past year weight has: remained stable Dental Care, Regularly: Yes Physical Activity Frequency: Does not Exercise Seatbelt Use: always Sunscreen Use: No Assistive Devices: CPAP, Denture - Upper, Glasses, Oxygen - at Night, Walker and Wheelchair Review of Systems 2 Review of Systems: All systems reviewed & are unremarkable except as noted in HPI & below and Unobtainable due to mental health condition Physical Exam 2 Physical Exam: Constitutional: No acute distress HEENT: PERRLA, EOMI, short thick neck Respiratory system: Decreased air entry bilaterally, no wheeze, rhonchi, positive crackles bilateral lower lobe CVS: S1-S2 positive, no murmurs or gallops, distant heart sounds, accentuated P2 Abdomen: Soft, nontender, nondistended, positive bowel sounds x4, obese Extremities: +2 pulses bilaterally radialis/ dorsalis pedis, no cyanosis, +2 pitting edema bilateral lower extremity, chronic venous stasis bilaterally Right foot medial aspect positive rubor, positive calor, onychomycosis appreciated bilateral toes Neuro: Somnolent, easily arousable, answering all the questions appropriately Psych: Unable to assess G/U: Positive Ng Skin: no rashes, warm and dry Lymphatic: no cervical or axillary lymphadenopathy Results & Data Results & Data Vital Signs (Past 12 Hours) Vital Signs Temp Pulse Resp BP Pulse Ox O2 Del Method O2 Flow Rate 11/23/24 14:57 36.5 C 62 16 111/54 L 96 Nasal Cannula 11/23/24 11:13 36.5 C 64 18 116/58 L 96 Room Air 11/23/24 09:28 Nasal Cannula 3 11/23/24 07:39 36.6 C 73 20 110/56 L 98 Room Air 11/23/24 03:42 36.7 C 72 18 129/71 99 Nasal Cannula 2 Laboratory Results 11/23/24 07:15 11/23/24 14:31 Coding Level of Care Code 69775 CRITICAL CARE 1ST 30-74M Diagnoses Acute on chronic kidney failure N17.9; N18.9 Acute renal failure type: unspecified Chronic kidney disease stage: unspecified stage Acute on chronic respiratory failure with hypoxia and hypercapnia J96.21; J96.22 Severe sepsis A41.9; R65.20 Cellulitis of leg, right L03.115 Umbilical hernia K42.9 Controlled type 2 diabetes mellitus with kidney complication, with long-term current use of insulin E11.29; Z79.4 Hemangioma D18.00 Hyperkalemia E87.5 Psoriasis L40.9 Obesity hypoventilation syndrome E66.2 Atrial flutter I48.92 Atrial fibrillation I48.91 COPD (chronic obstructive pulmonary disease) J44.9 (1) Acute on chronic kidney failure Acute renal failure type: unspecified Chronic kidney disease stage: u nspecified stage Qualified Code(s): N17.9 - Acute kidney failure, unspecified; N18.9 - Chronic kidney disease, unspecified
[2024-11-23] MEDS: DAPTOmycin 575 MG in SYRINGE 0 ML IV SCH (17:28)
[2024-11-23 17:54] LABS: iSTAT Arterial Blood Gas HCO3 32 meg/L (19-24); iSTAT Arterial Blood Gas pCO2 75 mmHg (35-46); iSTAT Arterial Blood Gas pH 7.24 (7.35-7.45); iSTAT Arterial Blood Gas pO2 91 mmHg (80-95); iSTAT Carbon Dioxide 34 mmol/L (24-31); iSTAT Hematocrit 33 % (37-47); iSTAT Hemoglobin 11.2 g/dl (12.0-16.0); iSTAT Potassium 5.1 mmol/L (3.3-5.0); iSTAT Sodium 135 mmol/L (135-144)
[2024-11-23] MEDS: BUMETANIDE 1 MG in SYRINGE 0 ML IV ONE (19:35)
[2024-11-23 20:35] LABS: Chloride Random Urine < 15 mmol/L; Creatinine Urine Random 108.3 mg/dl; Potassium Random Urine 58.3 mmol/L; Sodium Random Urine 12 mmol/L
[2024-11-23 22:57] LABS: BUN Creatinine Ratio 20.9 (10-20); Calcium 8.5 mg/dl (8.6-10.3); Creatinine Clr Calc Pharmacy 23.3 ml/min; Potassium 5.1 mmol/L (3.5-5.1)
[2024-11-23] MEDS: INSULIN ASPART PER UNIT CHARGE SC SCH (23:47)
[2024-11-23] MEDS: ALBUTEROL 0.083% NEBU SOLN 3 ML VIAL ONE (23:49)
[2024-11-24 04:40] LABS: Hematocrit (blood only) 26.4 % (37.0-47.0); Hemoglobin 8.1 g/dl (12.0-16.0); Mean Corpuscular Hemoglobin 29.7 pg (25.0-34.0); Mean Corpuscular Hgb Conc 30.7 g/dL (32.0-36.0); Mean Corpuscular Volume 96.7 fL (80.0-100.0); Mean Platelet Volume 10.9 fL (9.4-12.4); Nucleated RBC # (auto) 0.02 K/uL (0.00-0.12); Nucleated RBC % (auto) 0.1 %; Platelet Count 209 K/uL (130-400); RDW Coefficient of Variation 16.5 % (11.5-14.5); RDW Standard Deviation 58.9 fL (36.4-46.3); Red Blood Count 2.73 M/uL (4.20-5.40); White Blood Count 29.52 K/ul (4.8-10.8)
[2024-11-24 04:48] LABS: BUN Creatinine Ratio 22.1 (10-20); Calcium 8.4 mg/dl (8.6-10.3); Creatinine Clr Calc Pharmacy 23.1 ml/min; Potassium 4.8 mmol/L (3.5-5.1)
[2024-11-24 04:55] LABS: INR 3.3 (0.9-1.1); Prothrombin Time 32.6 Seconds (9.0-12.0)
[2024-11-24] MEDS: DEXTROSE 50% 50 ML SYRINGE IV PRN (04:55)
[2024-11-24] MEDS: LEVOTHYROXINE SODIUM 50 MCG TABLET PO SCH (06:11)
[2024-11-24 06:14] LABS: iSTAT Allen Test Pass; iSTAT Art Bld Gas pCO2 Correct 59 mmHg (35-46); iSTAT Art Bld Gas pH Corrected 7.349 (7.35-7.45); iSTAT Arterial Blood Gas HCO3 32 meg/L (19-24); iSTAT Arterial Blood Gas pCO2 59 mmHg (35-46); iSTAT Arterial Blood Gas pH 7.35 (7.35-7.45); iSTAT Arterial Blood Gas pO2 142 mmHg (80-95); iSTAT Arterial Blood Gas pO2 C 142; iSTAT Carbon Dioxide 34 mmol/L (24-31); iSTAT FiO2 30 %; iSTAT Hematocrit 24 % (37-47); iSTAT Hemoglobin 8.2 g/dl (12.0-16.0); iSTAT Potassium 4.5 mmol/L (3.3-5.0); iSTAT Sample Type Arterial; iSTAT Site R Radial; iSTAT Sodium 135 mmol/L (135-144); iSTAT SpO2 97
[2024-11-24] MEDS: CARBOHYDRATES FOR HYPOGLYCEMIA PO PRN (12:16)
[2024-11-24] MEDS: INSULIN ASPART PER UNIT CHARGE SC SCH (12:17)
--- NOTE | 2024-11-24 13:33 | Podiatry Consultation ---
Date of Consultation November 24, 2024 Assessment & Plan (1) Morbid obesity with BMI of 60.0-69.9, adult: (2) Cellulitis of leg, right: (3) Callus of foot: (4) Severe sepsis: (5) Cellulitis: Site of cellulitis: extremity Site of cellulitis of extremity: lower extremity Laterality: left Qualified Code(s): L03.116 - Cellulitis of left lower limb Plan -Pt examined and evaluated. - No significant podiatric concerns, currently. - Chronic arterial insufficiency versus extensive pitting edema obscuring pulses. Could benefit from non-invasive vascular testing. - Urea cream would be beneficial for b/l callus formation. - Continue antibiotics for cellulitis/sepsis - Will sign off for now with no further foot interventions planned. Don't he sitate to reconsult as needed. History of Present Illness Reason for Consultation: B/L LE Cellulitis Attending Physician: Leonardo Purdy MD History of Present Illness Patient seen at bedside at lunchtime. Denies any foot and ankle specific concerns but states her health has been worsening over the last 3 weeks or so. Recently developed cellulitis in the lower extremities, leading to this hospitalization. She is also suffering from acute respiratory concerns, chronic kidney failure, congestive heart failure, sleep apnea, diabetes, history of ulcerations, and now sepsis. She denies any injury/trauma to the foot and ankle or any acute concerns. She has seen [facility] on a regular basis for foot care, including treating her calluses. Allergies Allergy/AdvReac Type Severity Reaction Status Date / Time amoxicillin Allergy Severe SOB, RASH Verified 10/30/24 15:10 Penicillins Allergy Severe SOB, RASH Verified 10/30/24 15:10 clarithromycin Allergy Intermediate "feels Verified 10/30/24 15:10 like flying high" clindamycin Allergy Intermediate "feels Verified 10/30/24 15:10 like flying high" fluconazole Allergy Intermediate "feels Verified 10/30/24 15:10 like flying high" sulfamethoxazole Allergy Intermediate "feels Verified 10/30/24 15:10 like flying high" trimethoprim Allergy Intermediate "feels Verified 10/30/24 15:10 like flying high" Bactrim Allergy Unknown UNKNOWN Verified 02/21/18 10:32 empagliflozin AdvReac Severe Verified 10/30/24 15:10 [From Jardiance] codeine AdvReac Mild ITCHING, Verified 10/30/24 15:10 NAUSEA Home Medications Medication Instructions Recorded Confirmed Type meclizine 12.5 mg tablet 12.5 mg PO TID PRN Dizziness 10 09/26/16 11/22/24 History days #30 tabs Wheelchair (Manual) (Manual #1 ea 08/04/21 11/22/24 Rx Wheelchair) pen needle, diabetic 31 gauge x #200 ea 10/09/22 11/22/24 Rx 3/16" (BD Ultra-Fine Mini Pen Needle) hsjherlt-sgqe-whxi 8 mg-folic 400 1 tab PO QAM 12/27/22 11/22/24 History mcg-K 50 mcg-lutein 300 mcg tablet (Centrum Silver Women) acetaminophen 500 mg capsule 1,000 mg PO UD PRN Pain 01/05/23 11/22/24 History ferrous sulfate 325 mg (65 mg 325 mg PO BID 01/05/23 11/22/24 History iron) tablet Oxygen Home #1 ea 01/19/23 11/22/24 Rx buspirone 5 mg tablet 5 mg PO TID PRN anxiety #60 tabs 06/28/23 11/22/24 Rx magnesium chloride 64 mg 64 mg PO BID #180 tabs 11/26/23 11/22/24 Rx (magnesium chloride) tablet,delayed release nystatin 100,000 unit/gram topical 1 applic topical BID PRN itching 01/11/24 11/22/24 Rx powder #60 grams metoprolol tartrate 25 mg tablet 25 mg PO BID 90 days #180 tabs 02/12/24 11/22/24 Rx nrgaykkm-wdh-lsmoze 5 mg-zeaxanth 1 cap PO DAILY 02/20/24 11/22/24 History 1 mg-bilberry 7.5 mg-herbal capsule (Macular Health Formula) betamethasone dipropionate 0.05 % 1 applic topical BID #45 grams 03/31/24 11/22/24 Rx topical ointment bumetanide 2 mg tablet 2 mg PO BID #180 tabs 05/08/24 11/22/24 Rx insulin syringe-needle U-100 1 mL #200 ea 06/10/24 11/22/24 Rx 31 gauge x 5/16" (BD Insulin Syringe Ultra-Fine) blood sugar diagnostic (OneTouch #200 ea 06/14/24 11/22/24 Rx Ultra Test strips) flash glucose scanning reader #1 ea 06/14/24 11/22/24 Rx (FreeStyle Cristiana 2 Casco) insulin glargine 100 unit/mL (3 30 unit (0.3 mL) subcut BID #30 mL 08/04/24 11/22/24 Rx mL) subcutaneous pen (Basaglar KwikPen U-100 Insulin) triamcinolone acetonide 0.1 % 1 applic topical .COMPLEX #30 grams 08/20/24 11/22/24 Rx topical ointment xowbtxkxpc-tcmjozkxrx-kzos See Rx Instructions topical 09/16/24 11/22/24 History vera-vits A,D,and E 20 %-3 % .COMPLEX PRN VAGINAL SX topical cream (Vagisil) miconazole nitrate 2 % vaginal 1 applic vaginal UD PRN DIRECTED 09/16/24 11/22/24 History cream (Monistat 7) mupirocin 2 % topical ointment 1 applic topical BID 09/16/24 11/22/24 History tacrolimus 0.1 % topical ointment 1 applic topical BID 09/16/24 11/22/24 History amiodarone 100 mg tablet 100 mg PO QAM #90 tabs 09/22/24 11/22/24 Rx albuterol sulfate 90 mcg/actuation 2 puff inhalation Q6H PRN 10/28/24 11/22/24 Rx aerosol inhaler Shortness Of Breath #18 grams insulin lispro 100 unit/mL 25 - 35 unit (0.25 - 0.35 mL) 11/18/24 11/22/24 Rx subcutaneous solution (Admelog U-) subcut UD #31.5 mL atorvastatin 40 mg tablet (Lipitor) 40 mg PO QAM #90 tabs 11/19/24 11/22/24 Rx Lactobacillus acidophilus 10 10,000 mmu cells PO DAILY 11/22/24 11/22/24 History billion cell capsule (Probiotic) apremilast 30 mg tablet (Otezla) 30 mg PO QAM 11/22/24 11/22/24 History calcitriol 0.25 mcg capsule 0.25 mcg PO 3XWK 11/22/24 11/22/24 History clotrimazole-betamethasone 1 1 applic topical UD PRN DIRECTED 11/22/24 11/22/24 History %-0.05 % topical cream ezetimibe 10 mg tablet 10 mg PO QAM 11/22/24 11/22/24 History irbesartan 150 mg tablet 150 mg PO QAM 11/22/24 11/22/24 History levothyroxine 50 mcg tablet 50 mcg PO UD 11/22/24 11/22/24 History warfarin 5 mg tablet (Jantoven) 2.5 mg PO 3XWK 11/22/24 11/22/24 History warfarin 5 mg tablet (Jantoven) 5 mg PO 4XWK 11/22/24 11/22/24 History Patient History Medical History Type 2 diabetes mellitus with renal complication Hypertension On home oxygen therapy uses 2L O2 at night w/cpap and in the daytime prn Diabetic neuropathy Hx of gastric ulcer Depression Chronic pain of left knee DJD Osteoarthritis Degenerative disc disease Diabetes mellitus, type 2 On anticoagulant therapy coumadin daily Hyperlipidemia Atrial flutter hx of Chronic obstructive pulmonary disease inhaler prn Obesity Diastolic CHF Atrial fibrillation Paroxysmal. Cardioversion x 2. follows with Dr. Rapp---on coumadin. Surgical History Family history of reaction to anesthesia FATHER>NAUSEA AND DIZZINESS History of nasal cauterization History of colonoscopy with polypectomy Nausea and vomiting after administration of anesthetic agent with "extreme vertigo" History of total hysterectomy with bilateral salpingo-oophorectomy (BSO) History of lumpectomy of right breast benign History of carpal tunnel surgery of left wrist History of tooth extraction most teeth removed--full upper denture/partial lower History of cardioversion x2, [facility]; most recent 2019 Family History Sister Family history of reaction to anesthesia nausea/vomiting Hypothyroidism Father Family history of reaction to anesthesia nausea/vomiting Family hx colonic polyps Hypertension Mother Diabetes Hypertension Denies family history of Ovarian cancer Prostate cancer Myocardial infarction Breast cancer Colorectal cancer Social History Smoking Status: Former smoker Tobacco Type: Cigarettes Age Started Using Tobacco: 20; Age Quit Using Tobacco: 60; packs per day: 1; Second Hand Exposure: Yes; Do You Dip or Chew Tobacco: No; Hx Alcohol Use: No Hx Substance Use: No Preferred Language: Maldivian Communication Ability: Effective Visual Impairment: Limited Hearing Ability: Hard of Hearing 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 Beliefs That Will Affect Care: None marital status: Single Current Living Situation: Parent and Family Current Living Situation Comment: BROTHER AND FATHER current occupational status: retired How many Children do You have: 0 Feels Safe at Home: Yes Diet: regular during the past year weight has: remained stable Dental Care, Regularly: Yes Physical Activity Frequency: Does not Exercise Seatbelt Use: always Sunscreen Use: No Assistive Devices: CPAP, Walker and Wheelchair Review of Systems Review of Systems: All systems reviewed & are unremarkable except as noted in HPI & below Constitutional: no fever, no chills and no fatigue Eyes: no problem reported Ear, Nose, Mouth, Throat: no problem reported Respiratory: + dyspnea and + wheezing Cardiovascular: + edema; no problem reported Gastrointestinal: no nausea, no vomiting and no problem reported Genitourinary: no problem reported Musculoskeletal: no problem reported Integumentary: + skin ulcer, + wounds and + erythema Neurologic: + loss of sensation, + numbness and + pa resthesia; no generalized weakness Psychiatric: no problem reported Physical Exam Physical Exam: LE focused exam: DP/PT nonpalpable. +3 pitting edema to b/l lower extremity to the ankle. Advanced trophic changes noted to skin/nails. Extensive callus formation noted to calcaneus b/l. No open lesions or portals of entry. Cellulitis noted to calves b/l. Absent protective sensation b/l. Constitutional: WD/WN, vitals as above + ill appearing and + morbidly obese Eyes: PERRL, conjunctivae normal, anicteric sclerae ENMT: external ear and nose normal, oropharynx normal Mouth: + poor dentition Neck: trachea midline, no thyromegaly normal visual inspection Respiratory: normal respiratory effort, + respiratory distress and + labored breathing Cardiovascular: Rate/Rhythm: regular rate and regular rhythm Vessels: + posterior tibial pulses abnormal and + dorsalis pedis pulses abnormal Extremities: normal capillary refill, + pedal edema and + edema; no calf tenderness Chest (Breasts): Chest: normal inspection of chest Gastrointestinal (Abdomen): Inspection/Auscultation: abdomen normal to inspection and + abdomen distended Percussion/Palpation: + abdomen tender and abdomen soft Musculoskeletal: no cyanosis or clubbing, extremities motor strength 5/5 Head/Neck/Chest: normocephalic and head atraumatic Extremities: + abnormal strength, + muscle atrophy, + cyanosis and + limited ROM of lower extremity Skin: + rash, + erythema and + nails dystrophi c; no ulcers and no wound Neurologic: awake; + abnormal touch/pain/proprioception, + abnormal sensation to monofilament and no focal motor deficits Psychiatric: A+Ox3, euthymic affect Results & Data Vital Signs (Past 12 Hours) Vital Signs Temp Pulse Pulse Resp BP BP Pulse Ox 11/24/24 12:12 103 H 26 H 98 11/24/24 12:11 134/84 11/24/24 12:03 92 11/24/24 11:00 37.0 C 67 24 99 11/24/24 10:00 97/64 L 11/24/24 10:00 37.1 C 65 22 97 11/24/24 09:00 37.1 C 60 20 99 11/24/24 09:00 125/49 L 11/24/24 09:00 97 11/24/24 08:59 11/24/24 08:09 36.9 C 74 22 98 11/24/24 08:00 133/60 11/24/24 07:51 11/24/24 07:37 63 22 92 11/24/24 07:03 37.0 C 64 21 91 11/24/24 07:00 117/79 11/24/24 06:09 37.0 C 62 22 93 11/24/24 06:00 37 C 70 23 138/59 L 96 11/24/24 05:06 37.0 C 69 22 11/24/24 05:00 37 C 61 22 129/64 97 11/24/24 04:00 37.1 C 69 22 126/48 L 100 11/24/24 03:00 37.1 C 65 27 H 120/49 L 99 11/24/24 02:58 70 21 99 11/24/24 02:00 37.1 C 114 H 25 H 120/90 98 O2 Del Method O2 Flow Rate FiO2 11/24/24 12:12 11/24/24 12:11 11/24/24 12:03 11/24/24 11:00 11/24/24 10:00 11/24/24 10:00 11/24/24 09:00 11/24/24 09:00 11/24/24 09:00 Nasal Cannula 2 11/24/24 08:59 Nasal Cannula 2 11/24/24 08:09 11/24/24 08:00 11/24/24 07:51 BiPAP 11/24/24 07:37 11/24/24 07:03 11/24/24 07:00 11/24/24 06:09 11/24/24 06:00 BiPAP 11/24/24 05:06 11/24/24 05:00 11/24/24 04:00 11/24/24 03:00 11/24/24 02:58 30 11/24/24 02:00
--- NOTE | 2024-11-24 16:31 | Critical Care Progress Note ---
Date of Service November 24, 2024 Assessment & Plan (1) Acute on chronic respiratory failure with hypoxia and hypercapnia: Plan: Continue BiPAP at all times when sleeping and as needed for dyspnea. Will need updated polysomnography as an outpatient. Diastolic heart failure likely playing a role in her hypoxemia. Will hold on diuresis today and consider restarting tomorrow depending on volume status and oxygen requirements. Update echo. Wean O2 as able. Acid-base status improving with BiPAP therapy. (2) Obesity hypoventilation syndrome: Plan: Patient with OHS and would benefit from outpatient sleep medicine consultation. Continue BiPAP while in the hospital. (3) Acute encephalopathy: Plan: Likely multifactorial in the setting of acute hypoxemia and hypercapnia. Possible sepsis induced encephalopathy as well given possible cellulitis of lower extremity. (4) PETE (acute kidney injury): Plan: Follow urine output closely. Consider restarting diuresis tomorrow pending urine output and creatinine follow-up. Consider renal consultation if no improvement in creatinine in the next 24 hours. (5) Sepsis: Plan: Antibiotics de-escalated to cefepime. Daptomycin discontinued. Lower extremity cellulitis is questionable given the bilateral appearance and chronic venous stasis changes. White count substantially elevated. Blood cultures negative to date. Consider repeat blood and urine cultures if she spikes a fever. (6) Hyperkalemia: Plan: Likely secondary to PETE. Patient responding favorably to Lokelma. Will discontinue at this time as potassium is normalized. (7) PAF (paroxysmal atrial fibrillation): Plan: INR 3.3. Continue rate control with metoprolol. Continue home amiodarone. Give warfarin today 2.5 mg. Plan Okay to downgrade to PCU. Recommend goals of care discussion and potential palliative care input given severe underlying comorbidities including diastolic heart failure, questionable compliance with PAP therapy as an outpatient and morbid obesity. Admission and Anticipated Discharge Date Admission Date: November 22, 2024 Subjective Patient seen examined. Much more alert and awake today. Has some mild shortness of breath. No fevers or chills. No cough. Denies any abdominal pain, dizziness, night sweats or chest pain. Review of Systems Review of Systems: All systems reviewed & are unremarkable except as noted in HPI & below Physical Exam Physical Exam: Constitutional: Patient appears to be of their stated age. Patient massively obese. Eyes: Pupils are equal round and reactive to light. Conjunctivae are normal. Anicteric sclera. Ears nose, mouth and throat: Mallampati class 3. Normal posterior oropharynx. Uvula is midline. Neck: Trachea is midline. Visual inspection is normal. Respiratory: Mild diminishment crackles at the bases. Cardiovascular: Regular rate and rhythm. No murmurs. 4+ edema lower extremities. Gastrointestinal: Normal bowel sounds, soft, nontender and nondistended. No hepatosplenomegaly noted. Musculoskeletal: No cyanosis. Patient is able to move all extremities. Strength is 5 out of 5 in the upper and lower extremities. Skin: No rashes, warm dry and intact. Neurologic: No obvious focal neurological deficits seen. Psychiatric: Alert and oriented x3 with a euthymic affect. Results & Data Results & Data Vital Signs (Past 12 Hours) Vital Signs Temp Pulse Pulse Resp BP BP Pulse Ox 11/24/24 15:21 103 H 11/24/24 15:00 145/77 H 11/24/24 15:00 98 H 22 92 11/24/24 14:55 127/67 11/24/24 14:54 100 H 23 91 11/24/24 13:57 113 H 24 97 11/24/24 13:00 127/67 11/24/24 13:00 103 H 22 99 11/24/24 12:12 103 H 26 H 98 11/24/24 12:11 134/84 11/24/24 12:03 92 11/24/24 11:00 37.0 C 67 24 99 11/24/24 10:00 97/64 L 11/24/24 10:00 37.1 C 65 22 97 11/24/24 09:00 37.1 C 60 20 99 11/24/24 09:00 125/49 L 11/24/24 09:00 97 11/24/24 08:59 11/24/24 08:09 36.9 C 74 22 98 11/24/24 08:00 133/60 11/24/24 07:51 11/24/24 07:37 63 22 92 11/24/24 07:03 37.0 C 64 21 91 11/24/24 07:00 117/79 11/24/24 06:09 37.0 C 62 22 93 11/24/24 06:00 37 C 70 23 138/59 L 96 11/24/24 05:06 37.0 C 69 22 11/24/24 05:00 37 C 61 22 129/64 97 O2 Del Method O2 Flow Rate FiO2 11/24/24 15:21 11/24/24 15:00 11/24/24 15:00 11/24/24 14:55 11/24/24 14:54 11/24/24 13:57 11/24/24 13:00 11/24/24 13:00 11/24/24 12:12 11/24/24 12:11 11/24/24 12:03 11/24/24 11:00 11/24/24 10:00 11/24/24 10:00 11/24/24 09:00 11/24/24 09:00 11/24/24 09:00 Nasal Cannula 2 11/24/24 08:59 Nasal Cannula 2 11/24/24 08:09 11/24/24 08:00 11/24/24 07:51 BiPAP 11/24/24 07:37 25 11/24/24 07:03 11/24/24 07:00 11/24/24 06:09 11/24/24 06:00 BiPAP 11/24/24 05:06 11/24/24 05:00 Coding Level of Care Code 02942 SUB INP/OBS CARE 235MIN Diagnoses Acute on chronic respiratory failure with hypoxia and hypercapnia J96.21; J96.22 Obesity hypoventilation syndrome E66.2 Acute encephalopathy G93.40 PETE (acute kidney injury) N17.9 Sepsis A41.9 Hyperkalemia E87.5 PAF (paroxysmal atrial fibrillation) I48.0
[2024-11-24] MEDS: WARFARIN SOD 2.5 MG TAB PO SCH (17:44)
--- NOTE | 2024-11-24 17:51 | Hospitalist Progress Note ---
Date of Service November 24, 2024 Assessment & Plan (1) Severe sepsis: Plan: source - RLE cellulitis cellulitis modestly improved on exam today complicated by sepsis-associated ATN/PETE along with hypercapnic resp failure cont broad-spectrum IV abx including cefepime/daptomycin blood cx's negative to date appreciate ICU assistance BPs have been wnl - did not require pressors (2) Cellulitis of leg, right: Plan: severe RLE cellulitis cause of severe sepsis modestly improved today cont cefepime cont daptomycin no clinical evidence of nec fasc or deeper infection no wheeping from any location follow blood cx's but thus far are negative (3) Acute on chronic respiratory failure with hypoxia and hypercapnia: Plan: patient is typically on home auto-BIPAP with blended O2 notes from the pulmonary office noted she uses O2 during the daytime prn VBG 11/23/24 with decompensated hypercapnic respiratory failure acute decompensation was in the setting of CONSTANCE, OHS, COPD, and ??pulm edema from PETE & severe sepsis transferred to ICU on 11/23/24 due to severe hypercapnia, lethargy, worsening renal function/high K s/p BIPAP nearly all of yesterday, overnight, and then into this am now with resolution of hypercapnia & normalization of pH on am ABG appreciate industrial hygenist support cont BIPAP at night/naps; NC O2 otherwise (4) Acute on chronic kidney failure: Plan: patient's baseline Creatinine is ~1.7 presented on 11/22 with Cr 2.75 Cr continues to slowly rise this is despite IV fluids on hospital day #1 and hospital day #2 bumex IV x 1 was given yesterday afternoon without any appreciable UOP she appears to me intravascularly dry - has had little to no oral intake last 3- 4 days with that said I cannot rule out a "wet-dry" state with some 3rd spacing in the lungs / pulm edema repeat BMP this evening will give NS x 1 liter plan for nephrology consult consider CT a/p to rule out any obstructive cause but doubt such cont saul BMP in am (5) Hyperkalemia: Plan: 2nd to PETE s/p patiromer followed by Julio also had received albuterol, insulin/D50 peak K 5.7 now K is <5 stop Stannj BMP tonight and in am (6) PETE (acute kidney injury): Plan: 2nd to sepsis-associated ATN thus far no response to IV fluids & diuretics Cr this afternoon 3.48 repeat BMP tonight then again in am will give NS x 1 liter tonight patient had had a mild fall before admission check a CPK for completeness sake consult nephrology in light of worsening creatinine despite supportive care she has known diastolic CHF - I am concerned that at some point she will 3rd space/develop pulm edema (7) Chronic diastolic CHF (congestive heart failure): Plan: history of such typically on bumex 2mg BID along with meto 25mg BID echo ordered by industrial hygenist looks intra-vascularly dry but can't rule out wet-dry state with 3rd s pacing/early pulm edema see discussions above (8) Controlled type 2 diabetes mellitus with kidney complication, with long-term current use of insulin: Plan: a1c early October <7% cont basal-bolus insulin (9) Chronic venous insufficiency: Plan: severe typically on bumex 2mg BID diuretics on hold in the setting of PETE this is, amongst other factors, a major risk factor for her RLE Cellulitis (10) COPD (chronic obstructive pulmonary disease): Plan: without exacerbation at this time defer on systemic steroids (11) Hypothyroidism: Plan: TSH 1.8 cont synthroid (12) CONSTANCE (obstructive sleep apnea): Plan: BIPAP (13) Morbid obesity with BMI of 60.0-69.9, adult: Plan: BMI 62 (14) PAF (paroxysmal atrial fibrillation): Plan: had been in NSR upon admission and then for the first portion of the stay typically on metoprolol, amiodarone, and warfarin chronically warfarin had been on hold due to supratherapeutic INR INR today 3.3 warfarin resumed albeit at lower dose of 2.5mg daily repeat INR am cont meto tartrate she has developed a.fib in the last 24 hours since she is chronically anticoagulated could consider amiodarone infusion or increase in PO amio to try and maintain NSR if rate control proves stubborn (15) Acute metabolic encephalopathy: Plan: 2nd to severe sepsis, hypercapnia, PETE, etc. supportive care cont BIPAP HS/naps treat underlying issues Plan updated pt's sister extensively by phone this evening as well as on 11/23/24 appreciate critical care assistance patient was downgraded to PCU status by ICU attending plan of care signed out to night physician on 11/24/24 Admission and Anticipated Discharge Date Admission Date: November 22, 2024 Subjective following ICU transfer yesterday patient remained on BIPAP all night and until this am was then transitioned to NC O2 she has been in/out of a.fib when in a.fib rates have been ~100 during my visit she was confused she would fall asleep easily while we were talking she denied leg pain denied any dyspnea Review of Systems Review of Systems: CV - no chest pain pulm - no cough GI - no abd pain; she does not mention N/V today Physical Exam Physical Exam: gen - morbidly obese, looks modestly better than yesterday; sleepy/confused neck - unable to assess for JVD due to neck size mouth - MM still dry but not as severe as yesterday heart - irregularly irregular, s1 s2, no murmur lungs - decreased BS bases, occasional crackle, no wheezing, no increased work of breathing abd - soft NT ND BS+, probable ric-umbilical hernia (reducible) ext - severe venous stasis changes b/l shins and b/l feet (feet with thick skin/keratosis/xerosis) skin - cellulitis of RLE from the right knee down to the right foot - modestly improved today; the intensity of the warm erythema is less today; no signs of nec fasc; no tenderness b/l legs psych - oriented to person, confused Results & Data Results & Data Vital Signs (Past 12 Hours) Vital Signs Temp Pulse Pulse Resp BP BP Pulse Ox 11/24/24 15:21 103 H 11/24/24 15:00 145/77 H 11/24/24 15:00 98 H 22 92 11/24/24 14:55 127/67 11/24/24 14:54 100 H 23 91 11/24/24 13:57 113 H 24 97 11/24/24 13:00 127/67 11/24/24 13:00 103 H 22 99 11/24/24 12:12 103 H 26 H 98 11/24/24 12:11 134/84 11/24/24 12:03 92 11/24/24 11:00 37.0 C 67 24 99 11/24/24 10:00 97/64 L 11/24/24 10:00 37.1 C 65 22 97 11/24/24 09:00 37.1 C 60 20 99 11/24/24 09:00 125/49 L 11/24/24 09:00 97 11/24/24 08:59 11/24/24 08:09 36.9 C 74 22 98 11/24/24 08:00 133/60 11/24/24 07:51 11/24/24 07:37 63 22 92 11/24/24 07:03 37.0 C 64 21 91 11/24/24 07:00 117/79 11/24/24 06:09 37.0 C 62 22 93 11/24/24 06:00 37 C 70 23 138/59 L 96 O2 Del Method O2 Flow Rate FiO2 11/24/24 15:21 11/24/24 15:00 11/24/24 15:00 11/24/24 14:55 11/24/24 14:54 11/24/24 13:57 11/24/24 13:00 11/24/24 13:00 11/24/24 12:12 11/24/24 12:11 11/24/24 12:03 11/24/24 11:00 11/24/24 10:00 11/24/24 10:00 11/24/24 09:00 11/24/24 09:00 11/24/24 09:00 Nasal Cannula 2 11/24/24 08:59 Nasal Cannula 2 11/24/24 08:09 11/24/24 08:00 11/24/24 07:51 BiPAP 11/24/24 07:37 25 11/24/24 07:03 11/24/24 07:00 11/24/24 06:09 11/24/24 06:00 BiPAP Laboratory Results Laboratory Results - last 24 hr 11/23/24 11/23/24 11/23/24 17:58 19:45 22:27 WBC RBC Hgb POC Hgb 11.2 L Hct POC Hct 33 L MCV MCH MCHC RDW Std Deviation RDW Coeff of Shannan Plt Count MPV Absolute Nucleated RBC Nucleated RBC % (auto) PT INR Specimen Type Sample Site POC pH 7.24 L POC pCO2 75 H POC pO2 91 POC HCO3 32 H POC Total CO2 34 H POC Base Excess 5.0 H O2 Sat Pulse Oximetry ABG pH (Temp Correct) ABG pCO2 (Temp Corrct POC ABG pO2 at Pt Temp POC ABG O2 Sat 95.0 Heron Test O2 Delivery Device POC FiO2 EPAP IPAP POC Sodium 135 Sodium 135 L POC Potassium 5.1 H Potassium 5.1 Chloride 96 L Carbon Dioxide 35 H Anion Gap 4 BUN 72 H Creatinine 3.45 H Est Cr Clr Drug Dosing 23.3 eGFR 13.80 BUN/Creatinine Ratio 20.9 H Glucose 104 H POC Glucose Calcium 8.5 L B-Natriuretic Peptide Procalcitonin Urine Osmolality 372 L Ur Random Creatinine 108.3 Ur Random Sodium 12 Ur Random Potassium 58.3 Ur Random Chloride < 15 11/23/24 11/24/24 11/24/24 23:35 04:19 04:53 WBC 29.52 H RBC 2.73 L Hgb 8.1 L POC Hgb Hct 26.4 L POC Hct MCV 96.7 MCH 29.7 MCHC 30.7 L RDW Std Deviation 58.9 H RDW Coeff of Shannan 16.5 H Plt Count 209 MPV 10.9 Absolute Nucleated RBC 0.02 Nucleated RBC % (auto) 0.1 PT 32.6 H INR 3.3 H Specimen Type Sample Site POC pH POC pCO2 POC pO2 POC HCO3 POC Total CO2 POC Base Excess O2 Sat Pulse Oximetry ABG pH (Temp Correct) ABG pCO2 (Temp Corrct POC ABG pO2 at Pt Temp POC ABG O2 Sat Heron Test O2 Delivery Device POC FiO2 EPAP IPAP POC Sodium Sodium 136 POC Potassium Potassium 4.8 Chloride 98 Carbon Dioxide 33 H Anion Gap 5 BUN 77 H Creatinine 3.48 H Est Cr Clr Drug Dosing 23.1 eGFR 13.66 BUN/Creatinine Ratio 22.1 H Glucose 60 L POC Glucose 109 H 67 L* Calcium 8.4 L B-Natriuretic Peptide 262 H Procalcitonin Urine Osmolality Ur Random Creatinine Ur Random Sodium Ur Random Potassium Ur Random Chloride 11/24/24 11/24/24 11/24/24 05:21 06:19 08:27 WBC RBC Hgb POC Hgb 8.2 L Hct POC Hct 24 L MCV MCH MCHC RDW Std Deviation RDW Coeff of Shannan Plt Count MPV Absolute Nucleated RBC Nucleated RBC % (auto) PT INR Specimen Type Arterial Sample Site R Radial POC pH 7.35 POC pCO2 59 H POC pO2 142 H POC HCO3 32 H POC Total CO2 34 H POC Base Excess 7.0 H O2 Sat Pulse Oximetry 97 ABG pH (Temp Correct) 7.349 L ABG pCO2 (Temp Corrct 59 H POC ABG pO2 at Pt Temp 142 POC ABG O2 Sat 99.0 H Heron Test Pass O2 Delivery Device BIPAP POC FiO2 30 EPAP 6 IPAP 17 POC Sodium 135 Sodium POC Potassium 4.5 Potassium Chloride Carbon Dioxide Anion Gap BUN Creatinine Est Cr Clr Drug Dosing eGFR BUN/Creatinine Ratio Glucose POC Glucose 100 H 73 Calcium B-Natriuretic Peptide Procalcitonin Urine Osmolality Ur Random Creatinine Ur Random Sodium Ur Random Potassium Ur Random Chloride 11/24/24 11/24/24 11/24/24 11:14 12:13 12:30 WBC RBC Hgb POC Hgb Hct POC Hct MCV MCH MCHC RDW Std Deviation RDW Coeff of Shannan Plt Count MPV Absolute Nucleated RBC Nucleated RBC % (auto) PT INR Specimen Type Sample Site POC pH POC pCO2 POC pO2 POC HCO3 POC Total CO2 POC Base Excess O2 Sat Pulse Oximetry ABG pH (Temp Correct) ABG pCO2 (Temp Corrct POC ABG pO2 at Pt Temp POC ABG O2 Sat Heron Test O2 Delivery Device POC FiO2 EPAP IPAP POC Sodium Sodium POC Potassium Potassium Chloride Carbon Dioxide Anion Gap BUN Creatinine Est Cr Clr Drug Dosing eGFR BUN/Creatinine Ratio Glucose POC Glucose 57 L* 66 L* Calcium B-Natriuretic Peptide Procalcitonin 23.60 H Urine Osmolality Ur Random Creatinine Ur Random Sodium Ur Random Potassium Ur Random Chloride 11/24/24 11/24/24 12:44 15:16 WBC RBC Hgb POC Hgb Hct POC Hct MCV MCH MCHC RDW Std Deviation RDW Coeff of Shannan Plt Count MPV Absolute Nucleated RBC Nucleated RBC % (auto) PT INR Specimen Type Sample Site POC pH POC pCO2 POC pO2 POC HCO3 POC Total CO2 POC Base Excess O2 Sat Pulse Oximetry ABG pH (Temp Correct) ABG pCO2 (Temp Corrct POC ABG pO2 at Pt Temp POC ABG O2 Sat Heron Test O2 Delivery Device POC FiO2 EPAP IPAP POC Sodium Sodium POC Potassium Potassium Chloride Carbon Dioxide Anion Gap BUN Creatinine Est Cr Clr Drug Dosing eGFR BUN/Creatinine Ratio Glucose POC Glucose 116 H 135 H Calcium B-Natriuretic Peptide Procalcitonin Urine Osmolality Ur Random Creatinine Ur Random Sodium Ur Random Potassium Ur Random Chloride Diagnostic Findings Microbiology 11/22/24 16:09 Blood Aerobic Blood Culture - Preliminary No growth in Aerobic bottle after 48 hours. 11/22/24 16:09 Blood Anaerobic Blood Culture - Preliminary No growth in Anaerobic bottle after 48 hours. 11/22/24 15:40 Blood Aerobic Blood Culture - Preliminary No growth in Aerobic bottle after 48 hours. 11/22/24 15:40 Blood Anaerobic Blood Culture - Preliminary No growth in Anaerobic bottle after 48 hours. PG Care Time/CCT Total # of Minutes Spent Total Time Spent with Patient: Total time spent is greater than 50% in coordination of care (as documented) at patient's floor/unit and/or counseling patient: Coding Level of Care Code 45137 SUB INP/OBS CARE 3/50MIN Diagnoses Severe sepsis A41.9; R65.20 Cellulitis of leg, right L03.115 Acute on chronic respiratory failure with hypoxia and hypercapnia J96.21; J96.22 Acute on chronic kidney failure N17.9; N18.9 Acute renal failure type: unspecified Chronic kidney disease stage: unspecified stage Hyperkalemia E87.5 PETE (acute kidney injury) N17.9 Chronic diastolic CHF (congestive heart failure) I50.32 Controlled type 2 diabetes mellitus with kidney complication, with long-term current use of insulin E11.29; Z79.4 Chronic venous insufficiency I87.2 COPD (chronic obstructive pulmonary disease) J44.9 Hypothyroidism E03.9 CONSTANCE (obstructive sleep apnea) G47.33 Morbid obesity with BMI of 60.0-69.9, adult E66.01; Z68.44 PAF (paroxysmal atrial fibrillation) I48.0 Acute metabolic encephalopathy G93.41 (4) Acute on chronic kidney failure Acute renal failure type: unspecified Chronic kidney disease stage: unspecified stage Qualified Code(s): N17.9 - Acute kidney failure, unspecified; N18.9 - Chronic kidney disease, unspecified
--- NOTE | 2024-11-24 18:35 | Ultrasound Report ---
Exam: Duplex ultrasound of lower extremity arteries Clinical information: Cellulitis, right lower extremity Comparison: None Technique: Grayscale (B-mode), color Doppler, and duplex spectral Doppler ultrasound of the lower extremity arteries. Velocity measurements obtained with angle correction of 60 degrees or less. Findings: No visualized occlusion of the arteries of either lower extremity. The peroneal arteries were not visualized bilaterally, which appears to be related to body habitus. Mildly elevated velocity at the right and left common femoral arteries measuring 148, and 146 cm/sec, respectively. No other elevated velocities seen throughout either lower extremity. The dorsalis pedis arteries are patent as well, on the right having a velocity of 107, and the left a velocity of 81 cm/sec, respectively. Notably throughout the right lower extremity, the arterial waveforms are monophasic, whereas they are biphasic throughout the left lower extremity. ABIs not calculated, given constraints due to the patient being in the ICU. Impression: Monophasic waveforms are seen throughout the right lower extremity, likely related to distal hyperemia and the reported history of cellulitis, given the otherwise relatively symmetric velocities when compared to the left lower extremity. There is mildly elevated velocity at the right common femoral artery, which is similar to that of the left common femoral artery, and the left lower extremity demonstrates preserved, biphasic waveforms throughout. No evidence for occlusion. The peroneal arteries are not well-visualized, as above. Electronically signed by Tyson Zacarias 11-24-2024 6:35 PM
[2024-11-24 18:53] LABS: BUN Creatinine Ratio 20.6 (10-20); Calcium 7.9 mg/dl (8.6-10.3); Creatinine Clr Calc Pharmacy 20.7 ml/min; Potassium 4.3 mmol/L (3.5-5.1)
[2024-11-24] MEDS: SODIUM CHLORIDE 0.9% 1,000 ML IV SCH (19:40)
[2024-11-24] MEDS: LANTUS PER UNIT CHARGE SQ SCH (20:50)
[2024-11-25 04:36] LABS: Hematocrit (blood only) 28.2 % (37.0-47.0); Hemoglobin 8.6 g/dl (12.0-16.0); Mean Corpuscular Hemoglobin 29.7 pg (25.0-34.0); Mean Corpuscular Hgb Conc 30.5 g/dL (32.0-36.0); Mean Corpuscular Volume 97.2 fL (80.0-100.0); Mean Platelet Volume 11.1 fL (9.4-12.4); Nucleated RBC # (auto) 0.04 K/uL (0.00-0.12); Nucleated RBC % (auto) 0.2 %; Platelet Count 209 K/uL (130-400); RDW Coefficient of Variation 16.4 % (11.5-14.5); RDW Standard Deviation 58.5 fL (36.4-46.3); White Blood Count 24.29 K/ul (4.8-10.8)
[2024-11-25 04:57] LABS: BUN Creatinine Ratio 22.1 (10-20); Calcium 7.7 mg/dl (8.6-10.3); Creatinine Clr Calc Pharmacy 22.2 ml/min; Potassium 4.2 mmol/L (3.5-5.1)
[2024-11-25 05:04] LABS: INR 2.6 (0.9-1.1); Prothrombin Time 26.1 Seconds (9.0-12.0)
--- NOTE | 2024-11-25 07:35 | Hospitalist Progress Note ---
Date of Service November 25, 2024 Assessment & Plan (1) Severe sepsis: (2) Cellulitis of leg, right: (3) PETE (acute kidney injury): (4) Acute on chronic respiratory failure with hypoxia and hypercapnia: (5) Class 3 obesity with alveolar hypoventilation and body mass index (BMI) of 50.0 to 59.9 in adult: Plan: BMI currently 62.8 Plan 69 y/o with CONSTANCE/OHS and COPD on home Bipap and home oxygen admitted with severe sepsis from RLE cellulitis complicated by acute on chronic hypoxic and hypercarbic respiratory failure, severe PETE # Severe sepsis, did not require pressors # RLE cellulitis -blood Cx no growth to date -cont cefepime, daptomycin stopped by statistical modeler 11/24. Cellulitis not purulent so MRSA less likely. Nasal MRSA negative. -image if WBC not improving soon and consider changing to pip-tazo, R leg continues to appear inflamed # Severe PETE with hyperkalemia on CKD-3 UOP significantly improved and Cr improved a little cont saul not hyperkalemic today volume status hard to assess, hold off on fluids or diuretics today, await Echo, monitor Cr and UOP --> addendumIVC dilated on echo appears to be hypervolemic, resume gentle diuretics BMP in am # Acute on chronic hypoxic and hypercarbic respiratory failure, required ICU 11/23-11/24 for respiratory failure # CONSTANCE/OHS and COPD # Diastolic heart failure # morbid obesity with BMI 62 and the above complications -O2 sat goal 88-92% -cont BIPAP at night/naps; NC O2 otherwise # acute on chronic diastolic CHF (congestive heart failure): home meds bumex 2mg BID along with meto 25mg BID echo ordered by statistical modeler - 11/25 - challenging study, EF normal 65-70% no RWMA's, normal RV, mild MR, moderate TR, elevated RVSP and dilated inferior vena cava - resume diuretics # Atrial fibrillation mildly elevated rates -cont amiodarone, metoprolol - BP low side so will not increase today unless sustaining >120 -continue anticoagulation with warfarin. INR 2.6. AM daily INR -echo reviewed # Controlled type 2 diabetes mellitus with kidney complication, with long-term current use of insulin: a1c early October <7% cont basal-bolus insulin blood glucose at goal 11/25 # Chronic venous insufficiency, PAD -major risk factor for her RLE Cellulitis - lower extremity arterial duplex 2/ negative for any occlusions # Acute metabolic encephalopathy: 2nd to severe sepsis, hypercapnia, PETE, etc. improved, resolving # DVT ppx- on warfarin for afib -INR therapeutic 2.6 - continue 5 mg daily, AM INR updated pt's sister 2/4 at bedside Admission and Anticipated Discharge Date Admission Date: November 22, 2024 Subjective generally feeling ok, some shortness of breath, alert and awake RLE redness and tenderness - she thinks unchanged, she cant see it Physical Exam 2 Physical Exam: PHYSICAL EXAMINATION Last 24h vital signs reviewed, see documentation in flowsheet General: comfortable appearing, no distress HEENT: Normocephalic, atraumatic, pupils round and equal, sclerae anicteric, no conjunctival injection, moist mucus membranes Lungs: Normal respiratory effort. Clear to auscultation bilaterally anteriorly. No RRW Heart: Regular rate and rhythm, no murmurs. No JVD Abdomen: Soft, nontender, nondistended. Bowel sounds present. Extremities: Warm, dry, well-perfused. 2-3+ bilateral lower extremity edema right greater than left. dilated bilateral hemosiderosis, right foot ankle calf with acute erythema [place] pink and warm to touch, no fluctuance or purulence Neuro: Alert and oriented x 4, face symmetric, moves 4 extremities well Psych: Normal affect and behavior Results & Data Results & Data Vital Signs (Past 12 Hours) Vital Signs Temp Pulse Pulse Resp BP BP Pulse Ox 11/25/24 04:39 97.9 F 98 H 21 115/58 L 99 11/25/24 03:00 97.9 F 107 H 21 109/62 96 11/25/24 00:00 91 H 11/24/24 22:12 98 H 25 H 96 11/24/24 20:00 97.9 F 98 H 20 119/75 94 11/24/24 19:40 O2 Del Method O2 Flow Rate FiO2 11/25/24 04:39 Nasal Cannula 3 11/25/24 03:00 11/25/24 00:00 11/24/24 22:12 25 11/24/24 20:00 Nasal Cannula 2 11/24/24 19:40 Nasal Cannula 2 Laboratory Results 11/25/24 03:55 11/25/24 03:55 PG Care Time/CCT Total # of Minutes Spent Total Time Spent with Patient: Total time spent is greater than 50% in coordination of care (as documented) at patient's floor/unit and/or counseling patient: Coding Level of Care Code 56226 SUB INP/OBS CARE 3/50MIN Diagnoses Severe sepsis A41.9; R65.20 Cellulitis of leg, right L03.115 PETE (acute kidney injury) N17.9 Acute on chronic respiratory failure with hypoxia and hypercapnia J96.21; J96.22 Class 3 obesity with alveolar hypoventilation and body mass index (BMI) of 50.0 to 59.9 in adult E66.2; Z68.43
--- NOTE | 2024-11-25 12:18 | XCELERA ---
[id number]
--- NOTE | 2024-11-25 12:46 | Nephrology Consultation ---
Date of Consultation November 25, 2024 Assessment & Plan (1) PETE (acute kidney injury): Non-oliguric. Creatinine slightly improved this AM (3.84 --> 3.58 mg/dL). Electrolytes normal. Volume status acceptable. There is no emergent indication for dialysis. PETE consistent with septic ATN and intravascular volume depletion. Goal will be to maintain an even or slightly positive fluid balance. UA notable for +1 protein. Microscopy acellular. Hyaline casts noted. Medications are appropriate for kidney function. Cefepime dosing per pharmacy. Document strict I/O's. Repeat a metabolic profile tomorrow AM. (2) Stage 3 chronic kidney disease: CKD IIIb-IV A1. Baseline creatinine 1.5-2.0 mg/dL. 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 Follows in the [facility] nephrology clinic with Dr. Cervantes. (3) Chronic diastolic CHF (congestive heart failure): Evidence of predominately R heart failure. Volume status acceptable. Diuretics have been held. IVF were provided overnight. Avoid significantly positive fluid balance. Document I/O's. Irbesartan has been held. Avoid RAASi at this time. (4) Cellulitis of leg, right: Remains on cefepime. Clinically improving. History of Present Illness Reason for Consultation: PETE on CKD Requesting Physician: Jayne Gan MD Attending Physician: Jayne Gan MD History of Present Illness Iveth Perkins is a 69 year-old female with chronic kidney disease and a history of multiple episodes of PETE attributed to cardiorenal syndrome. She follows in the [facility] nephrology clinic with Dr. Cervantes. Baseline creatinine 1.5- 2.0 mg/dL. Medical history is notable for morbid obesity, hypertension, paroxysmal atrial fibrillation (amiodarone + Eliquis), diabetes mellitus II, and former smoker. Iveth has chronic lower extremity edema attributed to HFpEF with predominately right heart failure and evidence of pulmonary hypertension, as well as venous insufficiency. She presented to [facility] on November 22 with severe sepsis due to RLE cellulitis complicated by hypercapnic respiratory failure and PETE. She has remained non-oliguric. Creatinine was 2.75 mg/dL on admission and peaked at 3.85 mg/dL yesterday. Creatinine 3.58 mg/dL this AM. 1 L of NSS was provided overnight for intravascular volume depletion. Iveth was seen and evaluated in the ICU this morning. She was resting comfortably in bed without acute complaints. I discussed the patient's history and plan of care with Dr. Purdy last evening. Cefepime is being provided for her infection. Allergies Allergy/AdvReac Type Severity Reaction Status Date / Time amoxicillin Allergy Severe SOB, RASH Verified 10/30/24 15:10 Penicillins Allergy Severe SOB, RASH Verified 10/30/24 15:10 clarithromycin Allergy Intermediate "feels Verified 10/30/24 15:10 like flying high" clindamycin Allergy Intermediate "feels Verified 10/30/24 15:10 like flying high" fluconazole Allergy Intermediate "feels Verified 10/30/24 15:10 like flying high" sulfamethoxazole Allergy Intermediate "feels Verified 10/30/24 15:10 like flying high" trimethoprim Allergy Intermediate "feels Verified 10/30/24 15:10 like flying high" Bactrim Allergy Unknown UNKNOWN Verified 02/21/18 10:32 empagliflozin AdvReac Severe Verified 10/30/24 15:10 [From Jardiance] codeine AdvReac Mild ITCHING, Verified 10/30/24 15:10 NAUSEA Home Medications Medication Instructions Recorded Confirmed Type meclizine 12.5 mg tablet 12.5 mg PO TID PRN Dizziness 10 09/26/16 11/22/24 History days #30 tabs Wheelchair (Manual) (Manual #1 ea 08/04/21 11/22/24 Rx Wheelchair) pen needle, diabetic 31 gauge x #200 ea 10/09/22 11/22/24 Rx 3/16" (BD Ultra-Fine Mini Pen Needle) dbnrbbrw-uphh-ijbw 8 mg-folic 400 1 tab PO QAM 12/27/22 11/22/24 History mcg-K 50 mcg-lutein 300 mcg tablet (Centrum Silver Women) acetaminophen 500 mg capsule 1,000 mg PO UD PRN Pain 01/05/23 11/22/24 History ferrous sulfate 325 mg (65 mg 325 mg PO BID 01/05/23 11/22/24 History iron) tablet Oxygen Home #1 ea 01/19/23 11/22/24 Rx buspirone 5 mg tablet 5 mg PO TID PRN anxiety #60 tabs 06/28/23 11/22/24 Rx magnesium chloride 64 mg 64 mg PO BID #180 tabs 11/26/23 11/22/24 Rx (magnesium chloride) tablet,delayed release nystatin 100,000 unit/gram topical 1 applic topical BID PRN itching 01/11/24 11/22/24 Rx powder #60 grams metoprolol tartrate 25 mg tablet 25 mg PO BID 90 days #180 tabs 02/12/24 11/22/24 Rx bcwslvgf-fkv-zfevdq 5 mg-zeaxanth 1 cap PO DAILY 02/20/24 11/22/24 History 1 mg-bilberry 7.5 mg-herbal capsule (RenovoRx Health Formula) betamethasone dipropionate 0.05 % 1 applic topical BID #45 grams 03/31/24 11/22/24 Rx topical ointment bumetanide 2 mg tablet 2 mg PO BID #180 tabs 05/08/24 11/22/24 Rx insulin syringe-needle U-100 1 mL #200 ea 06/10/24 11/22/24 Rx 31 gauge x 5/16" (BD Insulin Syringe Ultra-Fine) blood sugar diagnostic (OneTouch #200 ea 06/14/24 11/22/24 Rx Ultra Test strips) flash glucose scanning reader #1 ea 06/14/24 11/22/24 Rx (FreeStyle Cristiana 2 Crawley) insulin glargine 100 unit/mL (3 30 unit (0.3 mL) subcut BID #30 mL 08/04/24 11/22/24 Rx mL) subcutaneous pen (Basaglar KwikPen U-100 Insulin) triamcinolone acetonide 0.1 % 1 applic topical .COMPLEX #30 grams 08/20/24 11/22/24 Rx topical ointment fwezodgtnn-dhvkcqgglj-uvqu See Rx Instructions topical 09/16/24 11/22/24 History vera-vits A,D,and E 20 %-3 % .COMPLEX PRN VAGINAL SX topical cream (Vagisil) miconazole nitrate 2 % vaginal 1 applic vaginal UD PRN DIRECTED 09/16/24 11/22/24 History cream (Monistat 7) mupirocin 2 % topical ointment 1 applic topical BID 09/16/24 11/22/24 History tacrolimus 0.1 % topical ointment 1 applic topical BID 09/16/24 11/22/24 History amiodarone 100 mg tablet 100 mg PO QAM #90 tabs 09/22/24 11/22/24 Rx albuterol sulfate 90 mcg/actuation 2 puff inhalation Q6H PRN 10/28/24 11/22/24 Rx aerosol inhaler Shortness Of Breath #18 grams insulin lispro 100 unit/mL 25 - 35 unit (0.25 - 0.35 mL) 11/18/24 11/22/24 Rx subcutaneous solution (Admelog U-) subcut UD #31.5 mL atorvastatin 40 mg tablet (Lipitor) 40 mg PO QAM #90 tabs 11/19/24 11/22/24 Rx Lactobacillus acidophilus 10 10,000 mmu cells PO DAILY 11/22/24 11/22/24 History billion cell capsule (Probiotic) apremilast 30 mg tablet (Otezla) 30 mg PO QAM 11/22/24 11/22/24 History calcitriol 0.25 mcg capsule 0.25 mcg PO 3XWK 11/22/24 11/22/24 History clotrimazole-betamethasone 1 1 applic topical UD PRN DIRECTED 11/22/24 0 11/22/24 History %-0.05 % topical cream ezetimibe 10 mg tablet 10 mg PO QAM 11/22/24 11/22/24 History irbesartan 150 mg tablet 150 mg PO QAM 11/22/24 11/22/24 History levothyroxine 50 mcg tablet 50 mcg PO UD 11/22/24 11/22/24 History warfarin 5 mg tablet (Jantoven) 2.5 mg PO 3XWK 11/22/24 11/22/24 History warfarin 5 mg tablet (Jantoven) 5 mg PO 4XWK 11/22/24 11/22/24 History Patient History Medical History Type 2 diabetes mellitus with renal complication Hypertension On home oxygen therapy uses 2L O2 at night w/cpap and in the daytime prn Diabetic neuropathy Hx of gastric ulcer Depression Chronic pain of left knee DJD Osteoarthritis Degenerative disc disease Diabetes mellitus, type 2 On anticoagulant therapy coumadin daily Hyperlipidemia Atrial flutter hx of Chronic obstructive pulmonary disease inhaler prn Obesity Diastolic CHF Atrial fibrillation Paroxysmal. Cardioversion x 2. follows with Dr. Rapp---on coumadin. Surgical History Family history of reaction to anesthesia FATHER>NAUSEA AND DIZZINESS History of nasal cauterization History of colonoscopy with polypectomy Nausea and vomiting after administration of anesthetic agent with "extreme vertigo" History of total hysterectomy with bilateral salpingo-oophorectomy (BSO) History of lumpectomy of right breast benign History of carpal tunnel surgery of left wrist History of tooth extraction most teeth removed--full upper denture/partial lower History of cardioversion x2, [facility]; most recent 2019 Family History Sister Family history of reaction to anesthesia nausea/vomiting Hypothyroidism Father Family history of reaction to anesthesia nausea/vomiting Family hx colonic polyps Hypertension Mother Diabetes Hypertension Denies family history of Ovarian cancer Prostate cancer Myocardial infarction Breast cancer Colorectal cancer Social History Smoking Status: Former smoker Tobacco Type: Cigarettes Age Started Using Tobacco: 20; Age Quit Using Tobacco: 60; packs per day: 1; Second Hand Exposure: Yes; Do You Dip or Chew Tobacco: No; Hx Alcohol Use: No Hx Substance Use: No Preferred Language: Georgian Communication Ability: Effective Visual Impairment: Limited Hearing Ability: Hard of Hearing Ticket Sorter Required: No Beliefs That Will Affect Care: None marital status: Single Current Living Situation: Parent and Family Current Living Situation Comment: BROTHER AND FATHER current occupational status: retired How many Children do You have: 0 Feels Safe at Home: Yes Diet: regular during the past year weight has: remained stable Dental Care, Regularly: Yes Physical Activity Frequency: Does not Exercise Seatbelt Use: always Sunscreen Use: No Assistive Devices: CPAP, Walker and Wheelchair Review of Systems Review of Systems: All systems reviewed & are unremarkable except as noted in HPI & below Constitutional: no fever and no chills Respiratory: + dyspnea; no cough and no hemoptysis Cardiovascular: + edema (chronic); no chest pain and no palpitations Gastrointestinal: + bloating and + nausea; no abdominal pa in, no vomiting, no change in bowel habits and no diarrhea/loose stools Genitourinary: no problem reported Physical Exam Constitutional: well developed and + morbidly obese; no acute distress Eyes: + anicteric sclerae; no conjunctival abn ormality ENMT: Mouth: no oral mucosal abnormality and oral mucous membranes not dry Neck: normal visual inspection and trachea midline Respiratory: normal respiratory effort and + tachypneic; no respiratory distress Auscultation: lungs clear to auscultation bilaterally and + diminished lung sounds; no rales and no rhonchi Cardiovascular: Rate/Rhythm: + irregularly irregular Heart Sounds: normal S1 and normal S2 Extremities: + edema Musculoskeletal: Extremities: no cyanosis and no clubbing Skin: normal turgor; no jaundice Neurologic: Motor/Sensory: no tremor and no asterixis Psychiatric: Orientation: alert and oriented x 3 Results & Data Vital Signs (Past 12 Hours) Vital Signs Temp Pulse Pulse Resp BP BP Pulse Ox 11/25/24 11:25 112/68 11/25/24 11:21 36.2 C L 98 H 20 95 11/25/24 11:06 36.2 C L 108 H 19 93 11/25/24 10:00 36.3 C L 109 H 20 99 11/25/24 09:00 36.3 C L 101 H 24 94 11/25/24 08:33 11/25/24 08:09 36.1 C L 101 H 23 94 11/25/24 07:06 36.1 C L 103 H 22 100 11/25/24 07:00 11/25/24 04:39 36.6 C 98 H 21 115/58 L 99 11/25/24 03:00 36.6 C 107 H 21 109/62 96 O2 Del Method O2 Del Method O2 Flow Rate O2 Flow Rate 11/25/24 11:25 11/25/24 11:21 11/25/24 11:06 11/25/24 10:00 11/25/24 09:00 Nasal Cannula 3 11/25/24 08:33 Nasal Cannula 3 11/25/24 08:09 11/25/24 07:06 11/25/24 07:00 Nasal Cannula 3 11/25/24 04:39 Nasal Cannula 3 11/25/24 03:00 Laboratory Results Laboratory Results - last 24 hr 11/24/24 11/24/24 11/24/24 11:14 12:44 15:16 WBC RBC Hgb Hct MCV MCH MCHC RDW Std Deviation RDW Coeff of Shannan Plt Count MPV Absolute Nucleated RBC Nucleated RBC % (auto) PT INR Sodium Potassium Chloride Carbon Dioxide Anion Gap BUN Creatinine Est Cr Clr Drug Dosing eGFR BUN/Creatinine Ratio Glucose POC Glucose 116 H 135 H Calcium Total Creatine Kinase Procalcitonin 23.60 H 11/24/24 11/24/24 11/25/24 18:22 20:46 03:55 WBC 24.29 H RBC 2.90 L Hgb 8.6 L Hct 28.2 L MCV 97.2 MCH 29.7 MCHC 30.5 L RDW Std Deviation 58.5 H RDW Coeff of Shannan 16.4 H Plt Count 209 MPV 11.1 Absolute Nucleated RBC 0.04 Nucleated RBC % (auto) 0.2 PT 26.1 H INR 2.6 H Sodium 135 L 137 Potassium 4.3 4.2 Chloride 96 L 98 Carbon Dioxide 34 H 34 H Anion Gap 5 5 BUN 79 H 79 H Creatinine 3.84 H D 3.58 H Est Cr Clr Drug Dosing 20.7 22.2 eGFR 12.13 13.20 BUN/Creatinine Ratio 20.6 H 22.1 H Glucose 143 H 52 L* POC Glucose 112 H Calcium 7.9 L 7.7 L Total Creatine Kinase 25 L Procalcitonin 11/25/24 11/25/24 11/25/24 05:02 05:25 06:21 WBC RBC Hgb Hct MCV MCH MCHC RDW Std Deviation RDW Coeff of Shannan Plt Count MPV Absolute Nucleated RBC Nucleated RBC % (auto) PT INR Sodium Potassium Chloride Carbon Dioxide Anion Gap BUN Creatinine Est Cr Clr Drug Dosing eGFR BUN/Creatinine Ratio Glucose POC Glucose 65 L* 85 101 H Calcium Total Creatine Kinase Procalcitonin 11/25/24 11:24 WBC RBC Hgb Hct MCV MCH MCHC RDW Std Deviation RDW Coeff of Shannan Plt Count MPV Absolute Nucleated RBC Nucleated RBC % (auto) PT INR Sodium Potassium Chloride Carbon Dioxide Anion Gap BUN Creatinine Est Cr Clr Drug Dosing eGFR BUN/Creatinine Ratio Glucose POC Glucose 125 H Calcium Total Creatine Kinase Procalcitonin PG Care Time/CCT Total # of Minutes Spent Total Time Spent with Patient: Total time spent is greater than 50% in coordination of care (as documented) at patient's floor/unit and/or counseling patient: Coding Level of Care Code 82343 IN/OBS CONSULT LVL 4,60M Diagnoses PETE (acute kidney injury) N17.9 Stage 3 chronic kidney disease N18.30 Chronic diastolic CHF (congestive heart failure) I50.32 Cellulitis of leg, right L03.115
[2024-11-25] MEDS ORDERED: DAPTOmycin 575 MG in SYRINGE 0 ML IV SCH (16:30)
[2024-11-25] MEDS: METOPROLOL TARTRATE 1 MG/ML VIAL IV STA (22:33)
[2024-11-25] MEDS: SODIUM CHLORIDE 0.9% 250 ML IV ONE (23:37)
[2024-11-25] MEDS: busPIRone 5 MG TAB PO PRN (23:44)
[2024-11-26 04:48] LABS: Hematocrit (blood only) 28.1 % (37.0-47.0); Hemoglobin 8.5 g/dl (12.0-16.0); Mean Corpuscular Hemoglobin 29.4 pg (25.0-34.0); Mean Corpuscular Hgb Conc 30.2 g/dL (32.0-36.0); Mean Corpuscular Volume 97.2 fL (80.0-100.0); Mean Platelet Volume 10.4 fL (9.4-12.4); Nucleated RBC # (auto) 0.07 K/uL (0.00-0.12); Nucleated RBC % (auto) 0.4 %; Platelet Count 207 K/uL (130-400); RDW Coefficient of Variation 16.5 % (11.5-14.5); RDW Standard Deviation 58.8 fL (36.4-46.3); Red Blood Count 2.89 M/uL (4.20-5.40); White Blood Count 17.99 K/ul (4.8-10.8)
[2024-11-26 05:04] LABS: BUN Creatinine Ratio 26.9 (10-20); Calcium 8.5 mg/dl (8.6-10.3); Creatinine Clr Calc Pharmacy 26.7 ml/min; Potassium 4.8 mmol/L (3.5-5.1)
[2024-11-26 05:14] LABS: INR 2.9 (0.9-1.1); Prothrombin Time 28.6 Seconds (9.0-12.0)
[2024-11-26] MEDS: ADVANCED PROBIOTIC 625 MG CAPSULE PO SCH (08:34)
[2024-11-26] MEDS: ATORVASTATIN 40 MG TAB PO SCH (08:34)
[2024-11-26] MEDS: CALCITRIOL 0.25 MCG CAPSULE PO SCH (08:34)
[2024-11-26 13:27] LABS: Base Excess VBG 3.6 mEq/L; HCO3 VBG 34 mmol/L; Oxygen Saturation VBG 90.5 %; PCO2 VBG 81 mmHg (38-50); PO2 VBG 62 mmHg; pH VBG 7.23 (7.36-7.41)
--- NOTE | 2024-11-26 14:23 | CT Scan Report ---
CT tib/fib RT wo con HISTORY: 69 years-old Female severe RLE cellulitis, abscess? Acute pain with soft tissue swelling of the right lower leg COMPARISON: Arterial Doppler study to November 24, 2024 TECHNIQUE: Multiple axial CT images of the right tibia and fibula were obtained without IV contrast. A dose lowering technique was used consistent with the principals of REESE. FINDINGS: There is moderate circumferential cutaneous thickening with subcutaneous edema and scattered subcenti meter subcutaneous calcifications. Arterial calcifications also noted. No discrete loculated fluid co llection. Unremarkable musculature. Superficial subcutaneous varicosities are noted. Small joint effu teodoro of the knee. Demineralized appearance of the bones. Moderate tricompartmental osteoarthritis of the knee with amador tional osteoarthritis of the ankle. No acute fracture, dislocation or osseous erosion. No suspicious osseous lesions. IMPRESSION: 1. Dermal thickening with subcutaneous edema. Differential considerations include cellulitis, venous stasis or lymphedema. 2. No fluid collection to suggest hematoma or abscess. 3. Peripheral arterial calcifications. 4. Osteoarthritis without acute osseous abnormality. 5. Superficial venous varicosities. ACT 112: Negative or not required by law. The above report was generated using voice recognition software. It may contain grammatical, syntax o r spelling errors. Electronically signed by: Chan Luther M.D. 11/26/2024 2:22 PM
[2024-11-26] MEDS ORDERED: METOPROLOL TARTRATE 1 MG/ML VIAL IV PRN (16:22)
--- NOTE | 2024-11-26 16:23 | Hospitalist Progress Note ---
Date of Service November 26, 2024 Assessment & Plan (1) Severe sepsis: (2) Cellulitis of leg, right: (3) PETE (acute kidney injury): (4) Acute on chronic respiratory failure with hypoxia and hypercapnia: (5) Class 3 obesity with alveolar hypoventilation and body mass index (BMI) of 50.0 to 59.9 in adult: Plan: BMI currently 62.8 Plan 69 y/o with CONSTANCE/OHS and COPD on home Bipap and home oxygen admitted with severe sepsis from RLE cellulitis complicated by acute on chronic hypoxic and hypercarbic respiratory failure, severe PETE # Severe sepsis, did not require pressors # RLE cellulitis - very obvious at this time -blood Cx no growth to date. Nasal MRSA negative. -WBC improved to 18 but CRP not improved, encephalopathic today - focal area of inflammation/induration possible fluctuance R calf - obtained CT RLE noncontrast - SQ edema but no abscess -slow to improve and remains severely ill. prefer pip-tazo because cefepime more likely to cause neurologic dysfunction in setting of PETE, however has PCN allergy. Consider adding metronidazole and restarting daptomycin # Severe PETE with hyperkalemia on CKD-3 UOP significantly improved and Cr slowly improving 3.6-->3.0 cont saul not hyperkalemic today - high normal 4.8 IVC dilated on echo 11/25 appears to be hypervolemic, however, was given IV fluids overnight. holding on diuretics or IV fluids at this time BMP in am # Acute on chronic hypoxic and hypercarbic respiratory failure, required ICU 2/-3 for respiratory failure # CONSTANCE/OHS and COPD on nocturnal Bipap # Diastolic heart failure # morbid obesity with BMI 62 and the above complications -O2 sat goal 88-92% -acute metabolic encephalopathy worse 11/26 - obtained vbg and she is in recurrent hypercarbic respiratory failure - discussed with bedside RN, resume continuous Bipap and follow abg/vbg # acute on chronic diastolic CHF (congestive heart failure): home meds bumex 2mg BID along with meto 25mg BID echo ordered by installation & maintenance executive - 11/25 - challenging study, EF normal 65-70% no RWMA's, normal RV, mild MR, moderate TR, elevated RVSP and dilated inferior vena cava - resume diuretics # Atrial fibrillation mildly elevated rates -cont amiodarone, metoprolol - BP low side so will not increase today unless sustaining >120 -continue anticoagulation with warfarin. INR 2.6. AM daily INR -echo reviewed # Controlled type 2 diabetes mellitus with kidney complication, with long-term current use of insulin: a1c early October <7% cont basal-bolus insulin blood glucose at goal 11/25 # Chronic venous insufficiency, PAD -major risk factor for her RLE Cellulitis - lower extremity arterial duplex 2/ negative for any occlusions # Acute metabolic encephalopathy: 2nd to severe sepsis, hypercapnia, PETE, etc. worse today though oriented to situation # DVT ppx- on warfarin for afib -INR therapeutic increased from 2.6-->2.9, reduced warfarin to 1 mg daily, daily AM INR updated pt's sister 11/25 & 11/26 at bedside Admission and Anticipated Discharge Date Admission Date: November 22, 2024 Subjective RLE erythema overall improved but more intense and edematous area right lateral calf. Knee joint is not painful She has noticed confusion, losing track of thought, double vision, tremor today Dyspnea unchanged Physical Exam 2 Physical Exam: PHYSICAL EXAMINATION Last 24h vital signs reviewed, see documentation in flowsheet General: comfortable appearing, no distress, sitting up in bed HEENT: Normocephalic, atraumatic, pupils round and equal, sclerae anicteric, no conjunctival injection, moist mucus membranes Lungs: Normal respiratory effort. Clear to auscultation bilaterally anteriorly. No RRW Heart: tachy irreg, no murmurs. No JVD Abdomen: Soft, nontender, nondistended. Bowel sounds present. Extremities: Warm, dry, well-perfused. 2-3+ bilateral lower extremity edema right greater than left generally improved both sides. bilateral hemosiderosis, right foot ankle calf with acute erythema overall darkening pink and less warm to touch, area of increased erythema induration and edema apx 20x15 cm upper right lateral calf Neuro: Alert and oriented x 4 however is forgetting details, EOMI, face symmetric, michelet UE and LE strength 3-4/5 and symmetric, +asterixis Psych: Normal affect and behavior Results & Data Results & Data Vital Signs (Past 12 Hours) Vital Signs Temp Pulse Pulse Resp BP Pulse Ox Pulse Ox 11/26/24 15:41 120 H 21 93 11/26/24 15:27 103 H 11/26/24 12:00 97.5 F L 102 H 17 126/73 94 11/26/24 09:03 11/26/24 08:00 107 H 11/26/24 07:59 98.2 F 121 H 18 135/79 96 11/26/24 07:00 94 O2 Del Method O2 Del Method O2 Flow Rate FiO2 11/26/24 15:41 25 11/26/24 15:27 11/26/24 12:00 Nasal Cannula 2 11/26/24 09:03 Nasal Cannula 2 11/26/24 08:00 11/26/24 07:59 Nasal Cannula 2 11/26/24 07:00 Nasal Cannula Laboratory Results 11/26/24 04:29 11/26/24 04:29 CRP remains mid 20s VBG 7.23/81 PG Care Time/CCT Critical Care Time: Yes Today Iveth is critically ill with recurrent acute hypercarbic respiratory failure requiring noninvasive ventilation, at risk of requiring intubation and mechanical ventilation, sepsis and severe RLE cellulitis that is slow to improve and other complex comorbidities such as PETE, acute on chronic diastolic heart failure, and rapid atrial fibrillation that cause her to be at high risk of morbidity and mortality. I spent 40 minutes critical care time today - reviewing vital signs, labs, ordering and reviewing studies, managing respiratory failure, examination and counseling of patient and her sister and order writing. Coding Level of Care Code 29942 SUB INP/OBS CARE 3/50MIN Diagnoses Severe sepsis A41.9; R65.20 Cellulitis of leg, right L03.115 PETE (acute kidney injury) N17.9 Acute on chronic respiratory failure with hypoxia and hypercapnia J96.21; J96.22 Class 3 obesity with alveolar hypoventilation and body mass index (BMI) of 50.0 to 59.9 in adult E66.2; Z68.43 Additional Codes Critical Care Time - Critical Care Time: Yes ([id number])
[2024-11-26] MEDS: WARFARIN SOD 1 MG TAB PO SCH (17:40)
--- NOTE | 2024-11-26 20:51 | Nephrology Progress Note ---
Date of Service November 26, 2024 Assessment & Plan (1) PETE (acute kidney injury): Plan: Non-oliguric. Creatinine continues to downtrend. Electrolytes normal. Volume status acceptable. There is no emergent indication for dialysis. PETE consistent with septic ATN and intravascular volume depletion. Goal will be to maintain an even or slightly positive fluid balance. Medications are appropriate for kidney function. Cefepime dosing per pharmacy. Document strict I/O's. Repeat a metabolic profile tomorrow AM. (2) Stage 3 chronic kidney disease: Plan: CKD IIIb-IV A1. Baseline creatinine 1.5-2.0 mg/dL. 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 [place] [facility] [place]. Cervantes. (3) Chronic diastolic CHF (congestive heart failure): Plan: Evidence of predominately R heart failure. Volume status acceptable. Diuretics have been held. IVF were provided overnight. Avoid significantly positive fluid balance. Document I/O's. Irbesartan has been held. Avoid RAASi at this time. (4) Cellulitis of leg, right: Plan: Remains on cefepime. Clinically improving. Admission and Anticipated Discharge Date Admission Date: November 22, 2024 Subjective No acute events overnight. Resting comfortably in ICU on BIPAP this evening. No fevers or chills. No complaints. Review of Systems Review of Systems: All systems reviewed & are unremarkable except as noted in HPI & below Physical Exam Constitutional: well developed and + morbidly obese; no acute distress Eyes: + anicteric sclerae ENMT: Mouth: no oral mucosal abnormality and oral mucous membranes not dry Neck: normal visual inspection and trachea midline Respiratory: normal respiratory effort (BIPAP) Auscultation: lungs clear to auscultation bilaterally; no rales and no rhonchi Cardiovascular: Rate/Rhythm: + tachycardic and + irregularly irregular Heart Sounds: normal S1 and normal S2 Extremities: + edema Musculoskeletal: Extremities: no cyanosis and no clubbing Skin: normal turgor; no jaundice Neurologic: Motor/Sensory: no tremor and no asterixis Psychiatric: Orientation: alert and oriented x 3 Results & Data Vital Signs (Past 12 Hours) Vital Signs Temp Pulse Pulse Resp BP Pulse Ox O2 Del Method 11/26/24 15:41 120 H 21 93 11/26/24 15:27 103 H 11/26/24 12:00 36.4 C L 102 H 17 126/73 94 Nasal Cannula 11/26/24 09:03 Nasal Cannula O2 Flow Rate FiO2 11/26/24 15:41 25 11/26/24 15:27 11/26/24 12:00 2 11/26/24 09:03 2 Laboratory Results Laboratory Results - last 24 hr 11/26/24 11/26/24 11/26/24 04:29 07:26 11:32 WBC 17.99 H RBC 2.89 L Hgb 8.5 L Hct 28.1 L MCV 97.2 MCH 29.4 MCHC 30.2 L RDW Std Deviation 58.8 H RDW Coeff of Shannan 16.5 H Plt Count 207 MPV 10.4 Absolute Nucleated RBC 0.07 Nucleated RBC % (auto) 0.4 PT 28.6 H INR 2.9 H VBG pH VBG pCO2 VBG pO2 VBG HCO3 VBG O2 Saturation VBG Base Excess Sodium 139 Potassium 4.8 Chloride 100 Carbon Dioxide 34 H Anion Gap 5 BUN 81 H Creatinine 3.01 H D Est Cr Clr Drug Dosing 26.7 eGFR 16.25 BUN/Creatinine Ratio 26.9 H Glucose 112 H POC Glucose 122 H 210 H Calcium 8.5 L C-Reactive Protein 11/26/24 11/26/24 13:15 16:20 WBC RBC Hgb Hct MCV MCH MCHC RDW Std Deviation RDW Coeff of Shannan Plt Count MPV Absolute Nucleated RBC Nucleated RBC % (auto) PT INR VBG pH 7.23 L VBG pCO2 81 H VBG pO2 62 VBG HCO3 34 VBG O2 Saturation 90.5 VBG Base Excess 3.6 Sodium Potassium Chloride Carbon Dioxide Anion Gap BUN Creatinine Est Cr Clr Drug Dosing eGFR BUN/Creatinine Ratio Glucose POC Glucose 206 H Calcium C-Reactive Protein 24.37 H PG Care Time/CCT Total # of Minutes Spent Total Time Spent with Patient: Total time spent is greater than 50% in coordination of care (as documented) at patient's floor/unit and/or counseling patient: Coding Level of Care Code 12150 SUB INP/OBS CARE 3/50MIN Diagnoses PETE (acute kidney injury) N17.9 Stage 3 chronic kidney disease N18.30 Chronic diastolic CHF (congestive heart failure) I50.32 Cellulitis of leg, right L03.115
[2024-11-27 04:48] LABS: Hematocrit (blood only) 28.1 % (37.0-47.0); Hemoglobin 8.4 g/dl (12.0-16.0); Mean Corpuscular Hemoglobin 29.1 pg (25.0-34.0); Mean Corpuscular Hgb Conc 29.9 g/dL (32.0-36.0); Mean Corpuscular Volume 97.2 fL (80.0-100.0); Mean Platelet Volume 10.8 fL (9.4-12.4); Nucleated RBC # (auto) 0.09 K/uL (0.00-0.12); Nucleated RBC % (auto) 0.7 %; Platelet Count 234 K/uL (130-400); RDW Coefficient of Variation 16.3 % (11.5-14.5); RDW Standard Deviation 58.4 fL (36.4-46.3); Red Blood Count 2.89 M/uL (4.20-5.40); White Blood Count 12.11 K/ul (4.8-10.8)
[2024-11-27 05:01] LABS: Calcium 8.6 mg/dl (8.6-10.3); Creatinine Clr Calc Pharmacy 32.4 ml/min; Potassium 4.7 mmol/L (3.5-5.1)
[2024-11-27 05:09] LABS: Prothrombin Time 29.8 Seconds (9.0-12.0)
[2024-11-27] MEDS: METOPROLOL TARTRATE 50 MG TAB PO SCH (08:48)
--- NOTE | 2024-11-27 11:27 | Nephrology Progress Note ---
Date of Service November 27, 2024 Assessment & Plan (1) PETE (acute kidney injury): Plan: Non-oliguric. Creatinine continues to downtrend. Electrolytes normal. Volume status acceptable. There is no emergent indication for dialysis. PETE consistent with septic ATN and intravascular volume depletion. Goal will be to maintain an even or slightly negative fluid balance. Medications are appropriate for kidney function. Cefepime dosing per pharmacy. Document strict I/O's. Repeat a metabolic profile tomorrow AM. (2) Stage 3 chronic kidney disease: Plan: CKD IIIb-IV A1. Baseline creatinine 1.5-2.0 mg/dL. 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 [place] [facility] [place]. Cervantes. (3) Chronic diastolic CHF (congestive heart failure): Plan: Evidence of predominately R heart failure. Volume status acceptable. Diuretics have been held. Avoid significantly positive fluid balance. Document I/O's. Irbesartan has been held. Avoid RAASi at this time. (4) Cellulitis of leg, right: Plan: Remains on cefepime. Unfortunately skin remains notably erythematous and tender consistent with persistent soft tissue infection. Admission and Anticipated Discharge Date Admission Date: November 22, 2024 Subjective No acute events overnight. Iveth was seen and evaluated with Dr. Gan present this AM. She is breathing comfortably on supplemental O2 via NC. she denies chest pains or palpitations. No fevers or chills. Remains in a slightly negative fluid balance without diuretics. Review of Systems Review of Systems: All systems reviewed & are unremarkable except as noted in HPI & below Physical Exam Constitutional: well developed and + morbidly obese; no acute distress Eyes: + anicteric sclerae; no conjunctival abn ormality ENMT: Mouth: no oral mucosal abnormality and oral mucous membranes not dry Neck: normal visual inspection and trachea midline Respiratory: normal respiratory effort Auscultation: lungs clear to auscultation bilaterally and + diminished lung sounds Cardiovascular: Rate/Rhythm: + tachycardic and + irregularly irregular Heart Sounds: normal S1 and normal S2 Extremities: + edema Musculoskeletal: Extremities: no cyanosis and no clubbing Skin: normal turgor; no jaundice Neurologic: Motor/Sensory: no tremor and no asterixis Psychiatric: Orientation: alert and oriented x 3 Results & Data Vital Signs (Past 12 Hours) Vital Signs Temp Pulse Pulse Resp BP BP Pulse Ox 11/27/24 08:00 115 H 11/27/24 07:28 36.5 C 117 H 19 118/83 95 11/27/24 04:06 120 H 24 100 11/27/24 04:00 120 H 20 140/84 98 11/27/24 03:18 109 H 18 97 11/27/24 03:10 19 100 11/27/24 02:00 120 H 20 90 11/27/24 01:31 140/84 11/27/24 01:31 116 H 21 140/84 99 11/27/24 00:00 117 H 11/26/24 23:45 109 H 26 H 138/71 94 O2 Del Method O2 Flow Rate FiO2 11/27/24 08:00 11/27/24 07:28 Nasal Cannula, Oxymask 3 11/27/24 04:06 11/27/24 04:00 Oxymask 2 11/27/24 03:18 11/27/24 03:10 Oxymask 2 11/27/24 02:00 11/27/24 01:31 11/27/24 01:31 Oxymask 2 11/27/24 00:00 11/26/24 23:45 BiPAP 25 Laboratory Results Laboratory Results - last 24 hr 11/26/24 11/26/24 11/26/24 11:32 13:15 16:20 WBC RBC Hgb Hct MCV MCH MCHC RDW Std Deviation RDW Coeff of Shannan Plt Count MPV Absolute Nucleated RBC Nucleated RBC % (auto) PT INR VBG pH 7.23 L VBG pCO2 81 H VBG pO2 62 VBG HCO3 34 VBG O2 Saturation 90.5 VBG Base Excess 3.6 Sodium Potassium Chloride Carbon Dioxide Anion Gap BUN Creatinine Est Cr Clr Drug Dosing eGFR BUN/Creatinine Ratio Glucose POC Glucose 210 H 206 H Calcium C-Reactive Protein 24.37 H 11/26/24 11/27/24 11/27/24 21:09 04:04 07:25 WBC 12.11 H RBC 2.89 L Hgb 8.4 L Hct 28.1 L MCV 97.2 MCH 29.1 MCHC 29.9 L RDW Std Deviation 58.4 H RDW Coeff of Shannan 16.3 H Plt Count 234 MPV 10.8 Absolute Nucleated RBC 0.09 Nucleated RBC % (auto) 0.7 PT 29.8 H INR 3.0 H VBG pH VBG pCO2 VBG pO2 VBG HCO3 VBG O2 Saturation VBG Base Excess Sodium 142 Potassium 4.7 Chloride 104 Carbon Dioxide 35 H Anion Gap 3 BUN 74 H Creatinine 2.47 H D Est Cr Clr Drug Dosing 32.4 eGFR 20.61 BUN/Creatinine Ratio 30.0 H Glucose 107 H POC Glucose 191 H 92 Calcium 8.6 C-Reactive Protein 11/27/24 11:14 WBC RBC Hgb Hct MCV MCH MCHC RDW Std Deviation RDW Coeff of Shannan Plt Count MPV Absolute Nucleated RBC Nucleated RBC % (auto) PT INR VBG pH VBG pCO2 VBG pO2 VBG HCO3 VBG O2 Saturation VBG Base Excess Sodium Potassium Chloride Carbon Dioxide Anion Gap BUN Creatinine Est Cr Clr Drug Dosing eGFR BUN/Creatinine Ratio Glucose POC Glucose 138 H Calcium C-Reactive Protein PG Care Time/CCT Total # of Minutes Spent Total Time Spent with Patient: Total time spent is greater than 50% in coordination of care (as documented) at patient's floor/unit and/or counseling patient: Coding Level of Care Code 77347 SUB INP/OBS CARE 3/50MIN Diagnoses PETE (acute kidney injury) N17.9 Stage 3 chronic kidney disease N18.30 Chronic diastolic CHF (congestive heart failure) I50.32 Cellulitis of leg, right L03.115
[2024-11-27] MEDS: metroNIDAZOLE 500 MG TAB PO SCH (12:23)
[2024-11-27] MEDS: DAPTOmycin 375 MG in SYRINGE 0 ML IV SCH (12:23)
--- NOTE | 2024-11-27 18:12 | Hospitalist Progress Note ---
Date of Service November 27, 2024 Assessment & Plan (1) Severe sepsis: (2) Cellulitis of leg, right: (3) PETE (acute kidney injury): (4) Acute on chronic respiratory failure with hypoxia and hypercapnia: (5) Class 3 obesity with alveolar hypoventilation and body mass index (BMI) of 50.0 to 59.9 in adult: Plan: BMI currently 62.8 Plan 69 y/o with CONSTANCE/OHS and COPD on home Bipap and home oxygen admitted with severe sepsis from RLE cellulitis complicated by acute on chronic hypoxic and hypercarbic respiratory failure, severe PETE # Severe sepsis, did not require pressors # RLE cellulitis - very obvious at this time - has not sufficiently improved so will broaden antibiotics today -blood Cx no growth to date. Nasal MRSA negative. - CT right lower extremity was negative for abscess on 11/26 -WBC improved to 12 but erythema has not improved and may be worse, will repeat CRP in a.m. - penicillin allergic, continue cefepime add metronidazole for anaerobic coverage and resume daptomycin # Severe PETE with ATN and hyperkalemia on CKD-3 UOP significantly improved and Cr slowly improving 3.6-->2.5 cont saul not hyperkalemic today - high normal 4.7 discussed with insolvency consultant, continue holding on diuretics or IV fluids at this time BMP in am, monitor urine output # Acute on chronic hypoxic and hypercarbic respiratory failure, required ICU /-11/24 for respiratory failure # CONSTANCE/OHS and COPD on nocturnal Bipap # Diastolic heart failure # morbid obesity with BMI 62 and the above complications -O2 sat goal 88-92% -acute metabolic encephalopathy worse 11/26 - hypercarbic on VBG was on continuous BiPAP throughout the day and nocturnal BiPAP, has improved today though suspect she is still hypercarbic some of it is chronic, very low threshold to repeat ABG/VBG and resume BiPAP if any change in mental status # acute on chronic diastolic CHF (congestive heart failure): home meds bumex 2mg BID along with meto 25mg BID echo ordered by auto radio mechanic - 11/25 - challenging study, EF normal 65-70% no RWMA's, normal RV, mild MR, moderate TR, elevated RVSP and dilated inferior vena cava - holding diuretics # Atrial fibrillation elevated rates around 120 persist -cont amiodarone, metoprolol - increased to 50 mg bid -continue anticoagulation with warfarin. INR 3.0, dose reduced to 1 mg, abx interaction. AM daily INR # Controlled type 2 diabetes mellitus with kidney complication, with long-term current use of insulin: a1c early October <7% cont basal-bolus insulin blood glucose at goal 11/26 # Chronic venous insufficiency, PAD -major risk factor for her RLE Cellulitis - lower extremity arterial duplex 11/24 negative for any occlusions # Acute metabolic encephalopathy: 2nd to severe sepsis, hypercapnia, PETE, etc. At this time related to hypercarbia, improved today AOx4 # DVT ppx- on warfarin for afib PT/OT - did poorly 11/26, will need acute rehab or SNF updated pt's sister 11/25 & 11/26 at bedside Admission and Anticipated Discharge Date Admission Date: November 22, 2024 Subjective mentation and alertness improved today no longer feels foggy and no longer has double vision after being on BiPAP throughout the day yesterday and at night right lower extremity is not really painful however redness has not clearly improved at all since yesterday. she has patchy erythema right medial thigh which she had not noticed before Physical Exam 2 Physical Exam: PHYSICAL EXAMINATION Last 24h vital signs reviewed, see documentation in flowsheet General: comfortable appearing, no distress, sitting up in bed HEENT: Normocephalic, atraumatic, pupils round and equal, sclerae anicteric, no conjunctival injection, moist mucus membranes Lungs: Normal respiratory effort. Clear to auscultation bilaterally anteriorly. No RRW Heart: tachy irreg, no murmurs. No JVD Abdomen: Soft, nontender, nondistended. Bowel sounds present. Extremities: Warm, dry, well-perfused. 3+ woody bilateral lower extremity edema worse on right. bilateral hemosiderosis, right foot ankle calf with erythema overall darkening pink and less warm to touch, area of increased erythema induration and edema apx 20x15 cm upper right lateral calf has not improved since yesterday, today I noticed some salmon-pink erythema right medial thigh tracking up to groin Neuro: Alert and oriented x 4 more alert, EOMI, face symmetric, michelet UE and LE strength 3-4/5 and symmetric, occasional asterixis Psych: Normal affect and behavior Results & Data Results & Data Vital Signs (Past 12 Hours) Vital Signs Temp Pulse Pulse Resp BP BP Pulse Ox 11/27/24 17:12 119 H 23 153/102 H 95 11/27/24 17:12 97.7 F 11/27/24 11:13 108 H 25 H 130/84 97 11/27/24 08:00 115 H 11/27/24 07:45 11/27/24 07:28 97.7 F 117 H 19 118/83 95 O2 Del Method O2 Flow Rate 11/27/24 17:12 Nasal Cannula 2 11/27/24 17:12 11/27/24 11:13 Nasal Cannula 2 11/27/24 08:00 11/27/24 07:45 Oxymask 2 11/27/24 07:28 Nasal Cannula, Oxymask 3 Laboratory Results 11/27/24 04:04 11/27/24 04:04 INR was 3.0 PG Care Time/CCT Total # of Minutes Spent Total Time Spent with Patient: Total time spent is greater than 50% in coordination of care (as documented) at patient's floor/unit and/or counseling patient: Coding Level of Care Code 92637 SUB INP/OBS CARE 3/50MIN Diagnoses Severe sepsis A41.9; R65.20 Cellulitis of leg, right L03.115 PETE (acute kidney injury) N17.9 Acute on chronic respiratory failure with hypoxia and hypercapnia J96.21; J96.22 Class 3 obesity with alveolar hypoventilation and body mass index (BMI) of 50.0 to 59.9 in adult E66.2; Z68.43
[2024-11-28 04:55] LABS: Hematocrit (blood only) 31.4 % (37.0-47.0); Hemoglobin 9.1 g/dl (12.0-16.0); Mean Corpuscular Hemoglobin 28.9 pg (25.0-34.0); Mean Corpuscular Volume 99.7 fL (80.0-100.0); Mean Platelet Volume 10.5 fL (9.4-12.4); Nucleated RBC # (auto) 0.12 K/uL (0.00-0.12); Nucleated RBC % (auto) 1.2 %; Platelet Count 258 K/uL (130-400); RDW Coefficient of Variation 16.5 % (11.5-14.5); RDW Standard Deviation 60.3 fL (36.4-46.3); Red Blood Count 3.15 M/uL (4.20-5.40)
[2024-11-28 05:14] LABS: BUN Creatinine Ratio 31.3 (10-20); C Reactive Protein 10.45 mg/dl (0-0.5); Calcium 9.2 mg/dl (8.6-10.3); Creatinine Clr Calc Pharmacy 40.4 ml/min; Potassium 5.3 mmol/L (3.5-5.1)
[2024-11-28 05:20] LABS: INR 3.1 (0.9-1.1); Prothrombin Time 30.5 Seconds (9.0-12.0)
[2024-11-28] MEDS: APREMILAST 30 MG PO SCH (08:55)
[2024-11-28] MEDS: metroNIDAZOLE 500 MG/100 ML BAG IV SCH (13:19)
--- NOTE | 2024-11-28 16:01 | Nephrology Progress Note ---
Date of Service November 28, 2024 Assessment & Plan (1) PETE (acute kidney injury): Plan: Non-oliguric. Creatinine has trended to baseline. Electrolytes notable for slightly elevated serum potassium. Volume status acceptable. PETE consistent with septic ATN and intravascular volume depletion. Goal will be to maintain an even or slightly negative fluid balance. Diuretics may be restarted as needed but have not been required at this time. Medications are appropriate for kidney function. Document strict I/O's. Repeat a metabolic profile tomorrow AM. No additional nephrology recommendations at this time. I will sign off. Please call with questions or concerns. (2) Stage 3 chronic kidney disease: Plan: CKD IIIb-IV A1. Baseline creatinine 1.5-2.0 mg/dL. CKD attributed to hyperten sive arteriosclerosis and cardiorenal syndrome. Follows in the [facility] clinic with Dr. Cervantes. (3) Chronic diastolic CHF (congestive heart failure): Plan: Evidence of predominately R heart failure. Volume status acceptable. Diuretics have been held. Avoid significantly positive fluid balance. Document I/O's. Irbesartan has been held. Avoid RAASi at this time. (4) Cellulitis of leg, right: Admission and Anticipated Discharge Date Admission Date: November 22, 2024 Subjective No acute events overnight. No fevers or chills. Iveth was seen and evaluated earlier this afternoon resting comfortably on BIPAP. She continues to make a lot of urine and remains in a net negative fluid balance without diuretics. Review of Systems Review of Systems: All systems reviewed & are unremarkable except as noted in HPI & below Physical Exam Constitutional: well developed and + morbidly obese; no acute distress Eyes: + anicteric sclerae; no conjunctival abn ormality ENMT: Mouth: no oral mucosal abnormality and oral mucous membranes not dry Neck: normal visual inspection and trachea midline Respiratory: normal respiratory effort (BIPAP) Auscultation: lungs clear to auscultation bilaterally and + diminished lung sounds; no rales and no rhonchi Cardiovascular: Rate/Rhythm: + irregularly irregular Heart Sounds: normal S1 and normal S2 Extremities: + edema Musculoskeletal: Extremities: no cyanosis and no clubbing Skin: + induration and + erythema; no jaundice Neurologic: Motor/Sensory: no tremor and no asterixis Psychiatric: Orientation: alert and oriented x 3 Results & Data Vital Signs (Past 12 Hours) Vital Signs Temp Pulse Resp BP Pulse Ox Pulse Ox O2 Del Method 11/28/24 14:08 109 H 23 93 11/28/24 12:29 36.4 C L 11/28/24 11:15 120 H 24 100 Nasal Cannula 11/28/24 11:13 151/90 H 11/28/24 11:12 117 H 23 100 11/28/24 10:03 116 H 22 100 11/28/24 09:12 115 H 20 11/28/24 08:30 92 11/28/24 08:06 115 H 20 129/66 98 Nasal Cannula 11/28/24 08:00 108 H 11/28/24 07:00 Nasal Cannula 11/28/24 07:00 123 H 22 100 11/28/24 07:00 36.4 C L O2 Del Method O2 Flow Rate FiO2 11/28/24 14:08 40 11/28/24 12:29 11/28/24 11:15 2 11/28/24 11:13 11/28/24 11:12 11/28/24 10:03 11/28/24 09:12 11/28/24 08:30 Nasal Cannula 11/28/24 08:06 2 11/28/24 08:00 11/28/24 07:00 2 11/28/24 07:00 11/28/24 07:00 Laboratory Results Laboratory Results - last 24 hr 11/27/24 11/28/24 11/28/24 20:40 04:39 07:16 WBC 9.80 RBC 3.15 L Hgb 9.1 L Hct 31.4 L MCV 99.7 MCH 28.9 MCHC 29.0 L RDW Std Deviation 60.3 H RDW Coeff of Shannan 16.5 H Plt Count 258 MPV 10.5 Absolute Nucleated RBC 0.12 Nucleated RBC % (auto) 1.2 PT 30.5 H INR 3.1 H Sodium 145 Potassium 5.3 H Chloride 105 Carbon Dioxide 38 H Anion Gap 2 L BUN 63 H Creatinine 2.01 H D Est Cr Clr Drug Dosing 40.4 eGFR 26.39 BUN/Creatinine Ratio 31.3 H Glucose 69 L POC Glucose 75 75 Calcium 9.2 C-Reactive Protein 10.45 H 11/28/24 11:14 WBC RBC Hgb Hct MCV MCH MCHC RDW Std Deviation RDW Coeff of Shannan Plt Count MPV Absolute Nucleated RBC Nucleated RBC % (auto) PT INR Sodium Potassium Chloride Carbon Dioxide Anion Gap BUN Creatinine Est Cr Clr Drug Dosing eGFR BUN/Creatinine Ratio Glucose POC Glucose 148 H Calcium C-Reactive Protein PG Care Time/CCT Total # of Minutes Spent Total Time Spent with Patient: Total time spent is greater than 50% in coordination of care (as documented) at patient's floor/unit and/or counseling patient: Coding Level of Care Code 73642 SUB INP/OBS CARE 3/50MIN Diagnoses PETE (acute kidney injury) N17.9 Stage 3 chronic kidney disease N18.30 Chronic diastolic CHF (congestive heart failure) I50.32 Cellulitis of leg, right L03.115
--- NOTE | 2024-11-28 17:20 | Hospitalist Progress Note ---
Date of Service November 28, 2024 Assessment & Plan (1) Severe sepsis: (2) Cellulitis of leg, right: (3) PETE (acute kidney injury): (4) Acute on chronic respiratory failure with hypoxia and hypercapnia: (5) Class 3 obesity with alveolar hypoventilation and body mass index (BMI) of 50.0 to 59.9 in adult: Plan: BMI currently 62.8 Plan 69 y/o with CONSTANCE/OHS and COPD on home Bipap and home oxygen admitted with severe sepsis from RLE cellulitis complicated by acute on chronic hypoxic and hypercarbic respiratory failure, severe PETE # Severe sepsis, did not require pressors # RLE cellulitis - very obvious at this time - clearly improved today on broadened antibiotics -blood Cx were negative. Nasal MRSA negative. - CT right lower extremity was negative for abscess on 11/26 - white blood count normal today and CRP improved to 10. - penicillin allergic, continue cefepime, metronidazole, daptomycin. oral metronidazole seems to be causing epigastric pain and nausea, changed to IV. EKG done for this pain is unchanged from previous with A-fib/flutter no acute ST changes, I personally reviewed the EKG tracing # Severe PETE with ATN and hyperkalemia on CKD-3 UOP significantly improved and Cr slowly improving 3.6-->2.0 cont saul mildly hyperkalemic at 5.3 continue holding on diuretics or IV fluids at this time BMP in am, monitor urine output creatinine and potassium # Acute on chronic hypoxic and hypercarbic respiratory failure, required ICU /-11/24 for respiratory failure # CONSTANCE/OHS and COPD on nocturnal Bipap # Diastolic heart failure # morbid obesity with BMI 62 and the above complications -O2 sat goal 88-92% -acute metabolic encephalopathy caused by hypercarbia - needed BiPAP throughout the day 11/26, mentation worse again today and she did not wear NIV very much last night obtained AB.28//59 -resumed Bipap # acute on chronic diastolic CHF (congestive heart failure): home meds bumex 2mg BID along with meto 25mg BID echo ordered by payroll officer - 11/25 - challenging study, EF normal 65-70% no RWMA's, normal RV, mild MR, moderate TR, elevated RVSP and dilated inferior vena cava - holding diuretics, volume status acceptable - negative 1600 last 24h # Atrial fibrillation/flutter elevated rates around 120 persist -cont amiodarone, metoprolol 50 mg bid and added metoprolol 5 mg IV q6h PRN -continue anticoagulation with warfarin. INR 3.1, dose reduced to 1 mg, abx interaction. AM daily INR # Controlled type 2 diabetes mellitus with kidney complication, with long-term current use of insulin: a1c early October <7% cont basal-bolus insulin blood glucose at goal 11/27 # Chronic venous insufficiency, PAD -major risk factor for her RLE Cellulitis - lower extremity arterial duplex 11/24 negative for any occlusions # Acute metabolic encephalopathy: 2nd to severe sepsis, hypercapnia, PETE, etc. At this time related to hypercarbia, worse today # DVT ppx- on warfarin for afib PT/OT - did poorly 11/26, will need acute rehab or SNF updated pt's sister 11/25 & 11/26 at bedside remains severely ill though cellulitis improved Admission and Anticipated Discharge Date Admission Date: November 22, 2024 Subjective Iveth is having nausea and epigastric discomfort I saw her midday and she is having trouble staying awake Physical Exam 2 Physical Exam: PHYSICAL EXAMINATION Last 24h vital signs reviewed, see documentation in flowsheet General: awake and sitting up in bed but somewhat lethargic HEENT: Normocephalic, atraumatic, pupils round and equal, sclerae anicteric, no conjunctival injection, moist mucus membranes Lungs: Normal respiratory effort. Clear to auscultation bilaterally anteriorly. No RRW Heart: tachy irreg, no murmurs. No JVD Abdomen: Soft, nontender, nondistended. Bowel sounds present. Extremities: Warm, dry, well-perfused. 3+ woody bilateral lower extremity edema worse on right. bilateral hemosiderosis. area of cellulitis right upper lateral calf has definitely improved, less warm and darkening. Patchy erythema on right medial thigh seems less prominent Neuro: oriented x hospital and situation though more lethargic and sleepy, EOMI, face symmetric, michelet UE and LE strength 3-4/5 and symmetric, asterixis present Psych: Normal affect and behavior Results & Data Results & Data Vital Signs (Past 12 Hours) Vital Signs Temp Pulse Pulse Resp BP BP Pulse Ox 11/28/24 16:45 109 H 21 99 11/28/24 16:00 11/28/24 16:00 98.2 F 95 H 16 128/71 94 11/28/24 16:00 106 H 11/28/24 14:08 109 H 23 93 11/28/24 12:29 97.5 F L 11/28/24 11:15 120 H 24 100 11/28/24 11:13 151/90 H 11/28/24 11:12 117 H 23 100 11/28/24 10:03 116 H 22 100 11/28/24 09:12 115 H 20 11/28/24 08:30 11/28/24 08:06 115 H 20 129/66 98 11/28/24 08:00 108 H 11/28/24 07:00 11/28/24 07:00 123 H 22 100 11/28/24 07:00 97.5 F L Pulse Ox O2 Del Method O2 Del Method O2 Flow Rate FiO2 11/28/24 16:45 30 11/28/24 16:00 Nasal Cannula 2 11/28/24 16:00 Nasal Cannula 2 11/28/24 16:00 11/28/24 14:08 40 11/28/24 12:29 11/28/24 11:15 Nasal Cannula 2 11/28/24 11:13 11/28/24 11:12 11/28/24 10:03 11/28/24 09:12 11/28/24 08:30 92 Nasal Cannula 11/28/24 08:06 Nasal Cannula 2 11/28/24 08:00 11/28/24 07:00 Nasal Cannula 2 11/28/24 07:00 11/28/24 07:00 Laboratory Results 11/28/24 04:39 11/28/24 04:39 PG Care Time/CCT Total # of Minutes Spent Total Time Spent with Patient: Total time spent is greater than 50% in coordination of care (as documented) at patient's floor/unit and/or counseling patient: Coding Level of Care Code 43106 SUB INP/OBS CARE 3/50MIN Diagnoses Severe sepsis A41.9; R65.20 Cellulitis of leg, right L03.115 PETE (acute kidney injury) N17.9 Acute on chronic respiratory failure with hypoxia and hypercapnia J96.21; J96.22 Class 3 obesity with alveolar hypoventilation and body mass index (BMI) of 50.0 to 59.9 in adult E66.2; Z68.43
--- NOTE | 2024-11-28 17:44 | Electrocardiogram Report ---
Test Reason : Blood Pressure : */* mmHG Vent. Rate : 106 BPM Atrial Rate : 267 BPM P-R Int : * ms QRS Dur : 92 ms QT Int : 354 ms P-R-T Axes : * 12 -24 degrees QTcB Int : 470 ms Atrial flutter with variable A-V block Nonspecific T wave abnormality Abnormal ECG When compared with ECG of 22-Nov-2024 14:41, Atrial flutter has replaced Sinus rhythm HR has increased by 33 bpm Confirmed by Cristóbal Willard ([id number]) on 11/28/2024 5:43:35 PM Referred By: REFERRED SELF Confirmed By: Cristóbal Willard
[2024-11-28] MEDS: diphenhydrAMINE Capsule 25 MG CAP PO ONE (19:28)
[2024-11-28] MEDS: ACETAMINOPHEN 325 MG TAB PO PRN (19:28)
[2024-11-28] MEDS: LORazepam 0.5 MG TAB PO STA (20:55)
[2024-11-29 06:16] LABS: Hematocrit (blood only) 29.2 % (37.0-47.0); Hemoglobin 8.6 g/dl (12.0-16.0); Mean Corpuscular Hemoglobin 29.1 pg (25.0-34.0); Mean Corpuscular Hgb Conc 29.5 g/dL (32.0-36.0); Mean Corpuscular Volume 98.6 fL (80.0-100.0); Mean Platelet Volume 10.1 fL (9.4-12.4); Nucleated RBC # (auto) 0.11 K/uL (0.00-0.12); Nucleated RBC % (auto) 1.4 %; Platelet Count 257 K/uL (130-400); RDW Coefficient of Variation 16.2 % (11.5-14.5); RDW Standard Deviation 58.5 fL (36.4-46.3); Red Blood Count 2.96 M/uL (4.20-5.40); White Blood Count 8.12 K/ul (4.8-10.8)
[2024-11-29 06:30] LABS: BUN Creatinine Ratio 34.7 (10-20); Calcium 8.8 mg/dl (8.6-10.3); Creatinine Clr Calc Pharmacy 41.3 ml/min; Potassium 5.5 mmol/L (3.5-5.1)
[2024-11-29 06:50] LABS: INR 4.1 (0.9-1.1)
[2024-11-29 08:46] LABS: iSTAT Arterial Blood Gas HCO3 35 meg/L (19-24); iSTAT Arterial Blood Gas pCO2 73 mmHg (35-46); iSTAT Arterial Blood Gas pH 7.28 (7.35-7.45); iSTAT Arterial Blood Gas pO2 59 mmHg (80-95); iSTAT Carbon Dioxide 37 mmol/L (24-31); iSTAT Hematocrit 28 % (37-47); iSTAT Hemoglobin 9.5 g/dl (12.0-16.0); iSTAT Potassium 5.5 mmol/L (3.3-5.0); iSTAT Sodium 141 mmol/L (135-144)
[2024-11-29 08:46] LABS: iSTAT Arterial Blood Gas HCO3 35 meg/L (19-24); iSTAT Arterial Blood Gas pCO2 60 mmHg (35-46); iSTAT Arterial Blood Gas pH 7.37 (7.35-7.45); iSTAT Arterial Blood Gas pO2 34 mmHg (80-95); iSTAT Carbon Dioxide 37 mmol/L (24-31); iSTAT Hematocrit 25 % (37-47); iSTAT Hemoglobin 8.5 g/dl (12.0-16.0); iSTAT Potassium 5.2 mmol/L (3.3-5.0); iSTAT Sodium 137 mmol/L (135-144)
[2024-11-29 08:46] LABS: iSTAT Arterial Blood Gas HCO3 36 meg/L (19-24); iSTAT Arterial Blood Gas pCO2 83 mmHg (35-46); iSTAT Arterial Blood Gas pH 7.25 (7.35-7.45); iSTAT Arterial Blood Gas pO2 49 mmHg (80-95); iSTAT Carbon Dioxide 39 mmol/L (24-31); iSTAT Hematocrit 27 % (37-47); iSTAT Hemoglobin 9.2 g/dl (12.0-16.0); iSTAT Potassium 5.6 mmol/L (3.3-5.0); iSTAT Sodium 141 mmol/L (135-144)
[2024-11-29] MEDS: SODIUM ZIRCONIUM CYCLOSILICATE 10 GM PACKET PO SCH (08:55)
--- NOTE | 2024-11-29 16:24 | Hospitalist Progress Note ---
Date of Service November 29, 2024 Assessment & Plan (1) Severe sepsis: (2) Cellulitis of leg, right: (3) PETE (acute kidney injury): (4) Acute on chronic respiratory failure with hypoxia and hypercapnia: (5) Class 3 obesity with alveolar hypoventilation and body mass index (BMI) of 50.0 to 59.9 in adult: Plan: BMI currently 62.8 Plan 69 y/o with CONSTANCE/OHS and COPD on home Bipap and home oxygen admitted with severe sepsis from RLE cellulitis complicated by acute on chronic hypoxic and hypercarbic respiratory failure, severe PETE. right leg cellulitis continued to worsen during early hospital course until antibiotics were broadened. Now improving. She had recurrent episode of acute hypercarbic respiratory failure 11/27 - 11/29 treated with BiPAP. PETE has been slowly improving. She continues to be in A-fib/flutter with rates often in [id number] range # Severe sepsis, did not require pressors # RLE cellulitis - eventually became very obvious - clearly improved on broadened antibiotics -blood Cx were negative. Nasal MRSA negative. - CT right lower extremity was negative for abscess on 11/26 - white blood count normal and CRP improved from 25 to 10. - penicillin allergic, continue cefepime, metronidazole, daptomycin. did not tolerate oral metronidazole so giving IV. # Severe PETE with ATN and hyperkalemia on CKD-3 UOP significantly improved and Cr slowly improving 3.6-->1.96 cont saul mildly hyperkalemic at 5.5 - Ordered dose of Lokelma and dose of Lasix 20 mg IV x 1 BMP in am, monitor urine output creatinine and potassium . Difficult to assess volume status # Acute on chronic hypoxic and hypercarbic respiratory failure, required ICU 11/23-11/24 for respiratory failure, needed another PAP 11/27 - 11/29 for recurrent hypercarbia with altered mental status # CONSTANCE/OHS and COPD on nocturnal Bipap # Diastolic heart failure # morbid obesity with BMI 62 and the above complications -O2 sat goal 88-92% -acute metabolic encephalopathy caused by hypercarbia - improved today, trialing some time off BiPAP, continue nocturnal BiPAP # acute on chronic diastolic CHF (congestive heart failure): home meds bumex 2mg BID along with meto 25mg BID echo ordered by dental laboratory manager - 2/4 - challenging study, EF normal 65-70% no RWMA's, normal RV, mild MR, moderate TR, elevated RVSP and dilated inferior vena cava - Lasix 20 mg IV x 1 today # Atrial fibrillation/flutter elevated rates around 120 persist -cont amiodarone, metoprolol increase to 75 mg mg bid and added metoprolol 5 mg IV q6h PRN - chronic anticoagulation with warfarin. INR 4.1, warfarin held AM daily INR # Controlled type 2 diabetes mellitus with kidney complication, with long-term current use of insulin: a1c early October <7% cont basal-bolus insulin blood glucose at goal 11/28 # Chronic venous insufficiency, PAD -major risk factor for her RLE Cellulitis - lower extremity arterial duplex 11/24 negative for any occlusions # Acute metabolic encephalopathy: initially related to severe sepsis, hypercapnia, PETE. At this time related to hypercarbia, mental status normal today # DVT ppx- on warfarin for afib PT/OT - did poorly 11/26, will need acute rehab or SNF updated pt's sister 11/25 & 11/26 at bedside remains severely ill because of her recurrent respiratory failure though cellulitis improved Admission and Anticipated Discharge Date Admission Date: November 22, 2024 Subjective After about 36 hours of BiPAP for hypercarbia Iveth is now awake and alert not having any right leg pain Physical Exam 2 Physical Exam: PHYSICAL EXAMINATION Last 24h vital signs reviewed, see documentation in flowsheet General: on BiPAP, when removed she is alert and oriented x 4 HEENT: Normocephalic, atraumatic, pupils round and equal, sclerae anicteric, no conjunctival injection, moist mucus membranes Lungs: Normal respiratory effort. Clear to auscultation bilaterally distant Heart: tachy irreg, no murmurs. No JVD Abdomen: Soft, nontender, nondistended. Bowel sounds present. Extremities: Warm, dry, well-perfused. 3+ woody bilateral lower extremity edema worse on right. bilateral hemosiderosis. area of cellulitis right upper lateral calf has definitely improved, less warm and darkening. Patchy erythema on right medial thigh has faded Neuro: alert and oriented x 4, EOMI, face symmetric, moving 4 extremities Psych: Normal affect and behavior Results & Data Results & Data Vital Signs (Past 12 Hours) Vital Signs Temp Pulse Pulse Resp BP Pulse Ox Pulse Ox 11/29/24 15:14 97.7 F 118 H 20 95 11/29/24 12:54 119 H 18 92 11/29/24 10:49 97.9 F 114 H 20 130/86 96 11/29/24 08:00 11/29/24 08:00 94 11/29/24 07:04 97.5 F L 106 H 19 122/85 93 O2 Del Method O2 Del Method O2 Flow Rate O2 Flow Rate FiO2 11/29/24 15:14 Nasal Cannula 2 11/29/24 12:54 25 11/29/24 10:49 Nasal Cannula 2 11/29/24 08:00 Nasal Cannula 2 11/29/24 08:00 Nasal Cannula 2 11/29/24 07:04 CPAP Laboratory Results 11/29/24 05:46 11/29/24 05:46 PG Care Time/CCT Total # of Minutes Spent Total Time Spent with Patient: Total time spent is greater than 50% in coordination of care (as documented) at patient's floor/unit and/or counseling patient: Coding Level of Care Code 60315 SUB INP/OBS CARE 3/50MIN Diagnoses Severe sepsis A41.9; R65.20 Cellulitis of leg, right L03.115 PETE (acute kidney injury) N17.9 Acute on chronic respiratory failure with hypoxia and hypercapnia J96.21; J96.22 Class 3 obesity with alveolar hypoventilation and body mass index (BMI) of 50.0 to 59.9 in adult E66.2; Z68.43
[2024-11-29] MEDS: FUROSEMIDE INJ 20 MG/2 ML VIAL IV ONE (17:33)
[2024-11-29] MEDS: METOPROLOL TARTRATE 25 MG TAB PO SCH (19:24)
[2024-11-29] MEDS: NYSTATIN POWDER 15GM BTL EXT PRN (19:24)
[2024-11-29] MEDS: LORazepam 0.5 MG TAB PO STA (19:37)
[2024-11-29] MEDS: diphenhydrAMINE Capsule 25 MG CAP PO ONE (20:29)
[2024-11-30 08:20] LABS: BUN Creatinine Ratio 34.6 (10-20); Calcium 8.8 mg/dl (8.6-10.3); Creatinine Clr Calc Pharmacy 44.4 ml/min; Potassium 5.4 mmol/L (3.5-5.1)
[2024-11-30 08:25] LABS: INR 3.3 (0.9-1.1); Prothrombin Time 31.9 Seconds (9.0-12.0)
[2024-11-30] MEDS: LANTUS PER UNIT CHARGE SQ SCH (08:29)
[2024-11-30] MEDS: cefUROXime axetil 500 MG TAB PO SCH (08:30)
[2024-11-30] MEDS: FUROSEMIDE 40 MG/4 ML VIAL IV ONE (13:18)
--- NOTE | 2024-11-30 16:08 | Hospitalist Progress Note ---
Date of Service November 30, 2024 Assessment & Plan (1) Severe sepsis: (2) Cellulitis of leg, right: (3) PETE (acute kidney injury): (4) Acute on chronic respiratory failure with hypoxia and hypercapnia: (5) Class 3 obesity with alveolar hypoventilation and body mass index (BMI) of 50.0 to 59.9 in adult: Plan: BMI currently 62.8 Plan 69 y/o with CONSTANCE/OHS and COPD on home Bipap and home oxygen admitted with severe sepsis from RLE cellulitis complicated by acute on chronic hypoxic and hypercarbic respiratory failure, severe PETE. right leg cellulitis continued to worsen during early hospital course until antibiotics were broadened. Now improving. She had recurrent episode of acute hypercarbic respiratory failure 11/27 - 11/29 treated with BiPAP. PETE has been slowly improving. She continues to be in A-fib/flutter with rates often in [id number] range # Severe sepsis, did not require pressors - sepsis resolved # RLE cellulitis - eventually became very obvious - clearly improved on broadened antibiotics -blood Cx were negative. Nasal MRSA negative. - CT right lower extremity was negative for abscess on 11/26 - white blood count normal and CRP improved from 25 to 10. - penicillin allergic, cefepime changed to oral cefuroxime, stop metronidazole, daptomycin after tomorrow which is day 5. did not tolerate oral metronidazole so giving IV. # Severe PETE with ATN and hyperkalemia on CKD-3 UOP significantly improved and Cr slowly improving 3.6-->1.8 cont saul mildly hyperkalemic at 5.5 - persists despite Lasix and Lokelma yesterday, ordered Lasix 40 mg IV x 1 BMP in am, monitor urine output creatinine and potassium . Difficult to assess volume status - her weight was 355 on admission, peaked at 361, now back down to 358 # Acute on chronic hypoxic and hypercarbic respiratory failure, required ICU 2/2-2/3 for respiratory failure, needed another PAP 11/27 - 11/29 for recurrent hypercarbia with altered mental status # CONSTANCE/OHS and COPD on nocturnal Bipap # Diastolic heart failure # morbid obesity with BMI 62 and the above complications -O2 sat goal 88-92% - recurrent acute metabolic encephalopathy caused by hypercarbia - resolved - continue nocturnal BiPAP # acute on chronic diastolic CHF (congestive heart failure): home meds bumex 2mg BID along with meto 25mg BID echo ordered by cotton presser - / - challenging study, EF normal 65-70% no RWMA's, normal RV, mild MR, moderate TR, elevated RVSP and dilated inferior vena cava - hypoxia much improved - Lasix 40 mg IV x 1 today # Atrial fibrillation/flutter elevated rates around 120 persist -cont amiodarone, metoprolol increase to 100 mg mg bid and added metoprolol 5 mg IV q6h PRN - chronic anticoagulation with warfarin. INR 3.3, likely resume 2.5 mg tomorrow, warfarin held AM daily INR # Controlled type 2 diabetes mellitus with kidney complication, with long-term current use of insulin: a1c early October <7% cont basal-bolus insulin - increase glargine to 25 units twice daily, increased CF/CR for aspart blood glucose ranging from [id number] today # Chronic venous insufficiency, PAD -major risk factor for her RLE Cellulitis - lower extremity arterial duplex 11/24 negative for any occlusions # Acute metabolic encephalopathy: initially related to severe sepsis, hypercapnia, PETE. then recurrence related to hypercapnia, currently resolved # constipation and hemorrhoidsunderwent manual disimpaction 11/29, started hydrocortisone suppositories as needed, continue bowel regimen # DVT ppx- on warfarin for afib PT/OT - did poorly 11/26, will need acute rehab or SNF staying in PCU because of tenuous respiratory status however she is about ready for transfer to [facility] and discharge to rehab setting or SNF discussed with bedside nurse Admission and Anticipated Discharge Date Admission Date: November 22, 2024 Subjective Iveth is doing well today, used Bipap all night and is fully awake and oriented Breathing feels fine RNs did manual disimpaction last night and now she is having BMs, she has hemorrhoidal pain RLE is not painful Physical Exam 2 Physical Exam: PHYSICAL EXAMINATION Last 24h vital signs reviewed, see documentation in flowsheet General:awake sitting in bed HEENT: Normocephalic, atraumatic, pupils round and equal, sclerae anicteric, no conjunctival injection, moist mucus membranes Lungs: Normal respiratory effort. Clear to auscultation bilaterally distant Heart: tachy irreg, no murmurs. No JVD Abdomen: Soft, nontender, nondistended. Bowel sounds present. Extremities: Warm, dry, well-perfused. 3+ woody bilateral lower extremity edema MUCH improved. bilateral hemosiderosis. area of cellulitis right upper lateral calf has continued improved, not warm and is darkening subcutaneous edema in central area persists. Patchy erythema on right medial thigh has faded Neuro: alert and oriented x 4, EOMI, face symmetric, moving 4 extremities Psych: Normal affect and behavior Results & Data Results & Data Vital Signs (Past 12 Hours) Vital Signs Temp Pulse Pulse Resp BP Pulse Ox Pulse Ox 11/30/24 15:30 97.7 F 112 H 19 130/87 100 11/30/24 11:51 97.9 F 106 H 22 106/57 L 96 11/30/24 08:00 11/30/24 08:00 95 11/30/24 08:00 118 H 11/30/24 07:11 97.7 F 110 H 22 143/96 H 97 O2 Del Method O2 Del Method O2 Flow Rate O2 Flow Rate 11/30/24 15:30 Nasal Cannula 3 11/30/24 11:51 Nasal Cannula 3 11/30/24 08:00 Nasal Cannula 2 11/30/24 08:00 Nasal Cannula 2 11/30/24 08:00 11/30/24 07:11 BiPAP Laboratory Results 11/29/24 05:46 11/30/24 07:31 PG Care Time/CCT Total # of Minutes Spent Total Time Spent with Patient: Total time spent is greater than 50% in coordination of care (as documented) at patient's floor/unit and/or counseling patient: Coding Level of Care Code 88970 SUB INP/OBS CARE 3/50MIN Diagnoses Severe sepsis A41.9; R65.20 Cellulitis of leg, right L03.115 PETE (acute kidney injury) N17.9 Acute on chronic respiratory failure with hypoxia and hypercapnia J96.21; J96.22 Class 3 obesity with alveolar hypoventilation and body mass index (BMI) of 50.0 to 59.9 in adult E66.2; Z68.43
[2024-12-01] MEDS: HYDROCORTISONE ACETATE 25 MG SUPP PR PRN (01:29)
[2024-12-01 07:14] LABS: Hematocrit (blood only) 30.4 % (37.0-47.0); Hemoglobin 8.9 g/dl (12.0-16.0); Mean Corpuscular Hemoglobin 28.8 pg (25.0-34.0); Mean Corpuscular Hgb Conc 29.3 g/dL (32.0-36.0); Mean Corpuscular Volume 98.4 fL (80.0-100.0); Mean Platelet Volume 10.3 fL (9.4-12.4); Nucleated RBC # (auto) 0.16 K/uL (0.00-0.12); Nucleated RBC % (auto) 1.4 %; Platelet Count 333 K/uL (130-400); RDW Coefficient of Variation 16.4 % (11.5-14.5); RDW Standard Deviation 57.9 fL (36.4-46.3); Red Blood Count 3.09 M/uL (4.20-5.40)
[2024-12-01 07:37] LABS: INR 2.2 (0.9-1.1); Prothrombin Time 22.7 Seconds (9.0-12.0)
[2024-12-01 07:41] LABS: BUN Creatinine Ratio 30.9 (10-20); Calcium 8.9 mg/dl (8.6-10.3); Creatinine Clr Calc Pharmacy 45.5 ml/min; Potassium 5.1 mmol/L (3.5-5.1)
[2024-12-01] MEDS: SODIUM CHLORIDE 0.65% NA SOLN 45 ML (OCEAN) PRN (08:26)
[2024-12-01] MEDS: FUROSEMIDE 40 MG/4 ML VIAL IV SCH (09:45)
--- NOTE | 2024-12-01 18:18 | Hospitalist Progress Note ---
Date of Service December 01, 2024 Assessment & Plan (1) Severe sepsis: (2) Cellulitis of leg, right: (3) PETE (acute kidney injury): (4) Acute on chronic respiratory failure with hypoxia and hypercapnia: (5) Class 3 obesity with alveolar hypoventilation and body mass index (BMI) of 50.0 to 59.9 in adult: Plan: BMI currently 62.8 Plan 69 y/o with CONSTANCE/OHS and COPD on home Bipap and home oxygen admitted with severe sepsis from RLE cellulitis complicated by acute on chronic hypoxic and hypercarbic respiratory failure, severe PETE. right leg cellulitis continued to worsen during early hospital course until antibiotics were broadened. Now improving. She had recurrent episode of acute hypercarbic respiratory failure 11/27 - 11/29 treated with BiPAP. PETE has been slowly improving. She continues to be in A-fib/flutter with elevated rates but they are downtrending with initiation of some diuresis # Severe sepsis, did not require pressors - sepsis resolved # RLE cellulitis - eventually became very obvious - initially had daptomycin stopped by ICU, cefepime. Failed to improve on cefepime alone, began to resolve once metronidazole and daptomycin were added -blood Cx were negative. Nasal MRSA negative. - CT right lower extremity was negative for abscess on 11/26 - white blood count normal and CRP improved from 25 to 10. - penicillin allergic, cefepime changed to oral cefuroxime, stop metronidazole, daptomycin - completed 5 days. did not tolerate oral metronidazole because of GI side effects # Severe PETE with ATN and hyperkalemia on CKD-3 UOP significantly improved and Cr slowly improving 3.6-->1.7 cont saul because of active diuresis at this time and poor mobility mild hyperkalemia, was persistent treated with Lokelma doses and finally resolved after several doses of IV Lasix, currently 5.1 we will continue diuresis with Lasix 40 IV x 2 doses today, monitor I's/O weight, a.m. BMP . Difficult to assess volume status - her weight was 355 on admission, peaked at 361, now back down to 358 # Acute on chronic hypoxic and hypercarbic respiratory failure, required ICU /-11/24 for respiratory failure, needed another round of continuous BiPAP 11/27 - 11/29 for recurrent hypercarbia with altered mental status # CONSTANCE/OHS and COPD on nocturnal Bipap at home # Diastolic heart failure # morbid obesity with BMI 62 and the above complications -O2 sat goal 88-92% - recurrent acute metabolic encephalopathy caused by hypercarbia - resolved - continue nocturnal BiPAP # acute on chronic diastolic CHF (congestive heart failure): home meds bumex 2mg BID along with meto 25mg BID echo ordered by telecommunications consultant - 11/25 - challenging study, EF normal 65-70% no RWMA's, normal RV, mild MR, moderate TR, elevated RVSP and dilated inferior vena cava - hypoxia much improved - Lasix 40 mg IV x 2 doses today, reassess in a.m. # Atrial fibrillation/flutter elevated rates persist but improving with diuresis -cont amiodarone, metoprolol increased to 100 mg mg bid and added metoprolol 5 mg IV q6h PRN - chronic anticoagulation with warfarin. INR 2.2, resume warfarin 2.5 mg daily, daily a.m. INR # Controlled type 2 diabetes mellitus with kidney complication, with long-term current use of insulin: a1c early October <7% cont basal-bolus insulin - increased glargine to 25 units twice daily, increased CF/CR for aspart on 11/30, blood glucose much improved today, at goal # Chronic venous insufficiency, PAD -major risk factor for her RLE Cellulitis - lower extremity arterial duplex 11/24 negative for any occlusions # Acute metabolic encephalopathy: initially related to severe sepsis, hypercapnia, PETE. then recurrence related to hypercapnia, currently resolved # constipation and hemorrhoids, anorectal pain underwent manual disimpaction 11/29, started hydrocortisone suppositories as needed, continue bowel regimen -- no thrombosed hemorrhoids on exam, suspect she may have had some anal fissure with spasm from passing large hard stool and disimpaction -- passed extremely large quantity of stool today, nonbloody # DVT ppx- on warfarin for afib PT/OT - did poorly 11/26, will need acute rehab or SNF staying in PCU because of tenuous respiratory status, A-fib rate control and active diuresis, however she is about ready for transfer [facility] and discharge to rehab setting or SNF continues to have many complex acute and chronic issues discussed plan of care with bedside nurse 2/10 Admission and Anticipated Discharge Date Admission Date: November 22, 2024 Subjective she has had intermittent anorectal spasms since manual disimpaction night before exam and no thrombosed external hemorrhoids later in day had massive amount of stool in the commode for nursing has remained alert and oriented for the last 48 hours, did wear BiPAP 5 to 6 hours last night Physical Exam 2 Physical Exam: PHYSICAL EXAMINATION Last 24h vital signs reviewed, see documentation in flowsheet General: alert lying on side in bed HEENT: Normocephalic, atraumatic, pupils round and equal, sclerae anicteric, no conjunctival injection, moist mucus membranes Lungs: Normal respiratory effort. Clear to auscultation bilaterally distant Heart: mildly tachy irreg, no murmurs. No JVD Abdomen: Soft, nontender, nondistended. Bowel sounds present. she has circumferential hemorrhoids but they are all soft none are thrombosed, no bleeding visualized, seems to be leaking small amount of soft stool, anus mildly dilated Extremities: Warm, dry, well-perfused. 3+ woody bilateral lower extremity edema MUCH improved. bilateral hemosiderosis. area of cellulitis right upper lateral calf has continued improved, not warm and is darkening raised subcutaneous edema in central area persists. Patchy erythema on right medial thigh has faded Neuro: alert and oriented x 4, EOMI, face symmetric, moving 4 extremities Psych: Normal affect and behavior Results & Data Results & Data Vital Signs (Past 12 Hours) Vital Signs Temp Pulse Pulse Resp BP Pulse Ox O2 Del Method 12/01/24 16:05 98.1 F 104 H 19 127/78 96 Nasal Cannula 12/01/24 13:44 12/01/24 11:03 98.2 F 110 H 19 130/94 98 Nasal Cannula 12/01/24 09:41 Nasal Cannula 12/01/24 07:40 98.2 F 109 H 20 115/81 97 Nasal Cannula 12/01/24 07:24 121 H O2 Flow Rate 12/01/24 16:05 2 12/01/24 13:44 2 12/01/24 11:03 2 12/01/24 09:41 2 12/01/24 07:40 2 12/01/24 07:24 Laboratory Results 12/01/24 05:49 12/01/24 05:49 PG Care Time/CCT Total # of Minutes Spent Total Time Spent with Patient: Total time spent is greater than 50% in coordination of care (as documented) at patient's floor/unit and/or counseling patient: Coding Level of Care Code 25982 SUB INP/OBS CARE 3/50MIN Diagnoses Severe sepsis A41.9; R65.20 Cellulitis of leg, right L03.115 PETE (acute kidney injury) N17.9 Acute on chronic respiratory failure with hypoxia and hypercapnia J96.21; J96.22 Class 3 obesity with alveolar hypoventilation and body mass index (BMI) of 50.0 to 59.9 in adult E66.2; Z68.43
[2024-12-02 06:51] LABS: BUN Creatinine Ratio 30.7 (10-20); Calcium 8.9 mg/dl (8.6-10.3); Creatinine Clr Calc Pharmacy 45.3 ml/min; Potassium 4.9 mmol/L (3.5-5.1)
[2024-12-02 07:08] LABS: INR 1.8 (0.9-1.1); Prothrombin Time 18.9 Seconds (9.0-12.0)
[2024-12-02] MEDS: WARFARIN SOD 2 MG TAB PO SCH (16:15)
[2024-12-02] MEDS: BUMETANIDE 2 MG in SYRINGE 0 ML IV ONE (16:38)
--- NOTE | 2024-12-02 19:09 | Hospitalist Progress Note ---
Date of Service December 02, 2024 Assessment & Plan (1) Severe sepsis: Plan: source - RLE cellulitis cellulitis continues to improve course complicated by sepsis-associated ATN/PETE along with hypercapnic resp failure cont IV daptomycin/cefuroxime/flagyl blood cx's were negative (2) Cellulitis of leg, right: Plan: severe RLE cellulitis cause of severe sepsis continues to improve each day previously was on cefepime --> then changed to cefuroxime remains on IV daptomycin remains on IV flagyl no evidence of nec fasc or deeper infection on CT leg arterial duplex study with adequate arterial flow in the RLE blood cx's negative (3) Acute on chronic respiratory failure with hypoxia and hypercapnia: Plan: patient is typically on home auto-BIPAP with blended O2 notes from the pulmonary office noted she uses O2 during the daytime prn had decompensated hypercapnic respiratory failure earlier in the stay (tra nsferred to ICU on 11/23/24 due to severe hypercapnia, lethargy, worsening renal function/high K) then recurred again 11/27 to 11/29 decompensation was in the setting of CONSTANCE, OHS, COPD, and ??pulm edema from PETE & severe sepsis cont BIPAP at night/naps; NC O2 otherwise check a VBG in am (4) Acute on chronic kidney failure: Plan: patient's baseline Creatinine is ~1.7 presented on 11/22 with Cr 2.75 Cr peaked 3.8 sepsis-associated ATN ATN/PETE resolved Cr today 1.7 tolerating gentel diuresis had lasix IV this am but typically takes bumex at home will give bumex 2mg IV x 1 at 1700 today -- follow response BMP am (5) Hyperkalemia: Plan: 2nd to PETE s/p patiromer followed by Julio; had received albuterol, insulin/D50 peak K 5.7 resolved since early in the admission BMP today wnl (6) PETE (acute kidney injury): Plan: 2nd to sepsis-associated ATN s/p nephrology consult early in admission but did not require dialysis, etc. PETE resolved BMP am (7) Chronic diastolic CHF (congestive heart failure): Plan: history of such typically on bumex 2mg BID along with meto 25mg BID echo this admission with preserved EF has been diuresed last 48 hours switch lasix back to bumex tonight (8) Controlled type 2 diabetes mellitus with kidney complication, with long-term current use of insulin: Plan: a1c early October <7% cont basal-bolus insulin (9) Chronic venous insufficiency: Plan: severe typically on bumex 2mg BID - will resume her home regimen next 24 hours elevation (10) COPD (chronic obstructive pulmonary disease): Plan: without exacerbation at this time defer on systemic steroids (11) Hypothyroidism: Plan: TSH 1.8 cont synthroid (12) CONSTANCE (obstructive sleep apnea): Plan: BIPAP (13) Morbid obesity with BMI of 60.0-69.9, adult: Plan: BMI 62-63 (14) PAF (paroxysmal atrial fibrillation): Plan: had been in NSR upon admission and then for the first portion of the stay typically on metoprolol, amiodarone, and warfarin chronically she then developed a.fib in first 24 hours of the hospitalization rates since then 90s to low 100s meto tartrate had been increased/titrated to 75mg BID will reduce back to 50mg BID will increase amiodarone to 200mg BID with hopes of converting her back to NSR coumadin - INR to day 1.8 only on 1mg/day of coumadin increase to 2mg/day daily INR (15) Acute metabolic encephalopathy: Plan: 2nd to severe sepsis, hypercapnia, PETE, etc. improved cont BIPAP HS/naps (16) Constipation: Plan: start maintenance tomorrow with miralax + senna Plan ultimate disposition - rehab Admission and Anticipated Discharge Date Admission Date: November 22, 2024 Subjective patient resting comfortably in bed with BIPAP in place overnight - tele - a.fib, rates 90s to low 100s, up to 110 at times patient denies any RLE pain denies dyspnea at rest she reports feeling tired eating 100% of meals per staff 2 large BMs yesterday, 1 small BM today declined to get OOB this am Review of Systems Review of Systems: gen - no fevers or chills cv - no chest pain, no orthopnea pulm - no cough GI - no abd pain today; had had rectal discomfort yesterday - now resolved Physical Exam Physical Exam: gen - morbidly obese, no distress, sleeping initially with BIPAP in place; easily awakens neck - unable to assess for JVD due to neck size mouth - MM dry heart - irregularly irregular, s1 s2, no murmur; rate 100s lungs - decreased BS bases, otherwise CTA b/l abd - soft NT ND BS+, probable ric-umbilical hernia ext - severe venous stasis changes b/l shins and b/l feet skin - cellulitis of RLE from the right knee down to the right foot -improved in comparison to my last exam 1 week ago; the erythema has retreated from the knee, and the erythema is now a pink rather than intense red color Results & Data Results & Data Vital Signs (Past 12 Hours) Vital Signs Temp Pulse Pulse Resp BP Pulse Ox Pulse Ox 12/02/24 17:06 36.6 C 107 H 24 101/71 92 12/02/24 15:28 99 H 12/02/24 11:50 36.7 C 114 H 20 110/70 98 12/02/24 08:00 95 12/02/24 08:00 12/02/24 08:00 36.6 C 119 H 22 120/66 97 O2 Del Method O2 Del Method O2 Flow Rate O2 Flow Rate 12/02/24 17:06 Nasal Cannula 2 12/02/24 15:28 12/02/24 11:50 BiPAP 12/02/24 08:00 Nasal Cannula 2 12/02/24 08:00 Nasal Cannula 2 12/02/24 08:00 BiPAP Laboratory Results Laboratory Results - last 24 hr 12/01/24 12/02/24 12/02/24 20:01 05:41 07:21 PT 18.9 H INR 1.8 H Sodium 142 Potassium 4.9 Chloride 103 Carbon Dioxide 35 H Anion Gap 4 BUN 55 H Creatinine 1.79 H Est Cr Clr Drug Dosing 45.3 eGFR 30.32 BUN/Creatinine Ratio 30.7 H Glucose 90 POC Glucose 124 H 90 Calcium 8.9 12/02/24 12/02/24 12/02/24 10:32 11:06 16:08 PT INR Sodium Potassium Chloride Carbon Dioxide Anion Gap BUN Creatinine Est Cr Clr Drug Dosing eGFR BUN/Creatinine Ratio Glucose POC Glucose 160 H 123 H 140 H Calcium PG Care Time/CCT Total # of Minutes Spent Total Time Spent with Patient: Total time spent is greater than 50% in coordination of care (as documented) at patient's floor/unit and/or counseling patient: Coding Level of Care Code 87580 SUB INP/OBS CARE MIN Diagnoses Severe sepsis A41.9; R65.20 Cellulitis of leg, right L03.115 Acute on chronic respiratory failure with hypoxia and hypercapnia J96.21; J96.22 Acute on chronic kidney failure N17.9; N18.9 Acute renal failure type: unspecified Chronic kidney disease stage: unspecified stage Hyperkalemia E87.5 PETE (acute kidney injury) N17.9 Chronic diastolic CHF (congestive heart failure) I50.32 Controlled type 2 diabetes mellitus with kidney complication, with long-term current use of insulin E11.29; Z79.4 Chronic venous insufficiency I87.2 COPD (chronic obstructive pulmonary disease) J44.9 Hypothyroidism E03.9 CONSTANCE (obstructive sleep apnea) G47.33 Morbid obesity with BMI of 60.0-69.9, adult E66.01; Z68.44 PAF (paroxysmal atrial fibrillation) I48.0 Acute metabolic encephalopathy G93.41 Constipation K59.00 (4) Acute on chronic kidney failure Acute renal failure type: unspecified Chronic kidney disease stage: unspecified stage Qualified Code(s): N17.9 - Acute kidney failure, unspecified; N18.9 - Chronic kidney disease, unspecified
[2024-12-02] MEDS: METOPROLOL TARTRATE 50 MG TAB PO SCH (20:11)
[2024-12-02] MEDS: AMIODARONE 200 MG TAB PO SCH (20:12)
[2024-12-03 06:58] LABS: Base Excess VBG 7.8 mEq/L; HCO3 VBG 36 mmol/L; Oxygen Saturation VBG 82.7 %; PCO2 VBG 67 mmHg (38-50); PO2 VBG 49 mmHg; pH VBG 7.34 (7.36-7.41)
[2024-12-03 07:23] LABS: BUN Creatinine Ratio 30.1 (10-20); Calcium 8.8 mg/dl (8.6-10.3); Creatinine Clr Calc Pharmacy 46.9 ml/min; Potassium 4.8 mmol/L (3.5-5.1)
[2024-12-03 07:29] LABS: INR 1.7 (0.9-1.1); Prothrombin Time 17.8 Seconds (9.0-12.0)
[2024-12-03] MEDS: LANTUS PER UNIT CHARGE SQ SCH ×2 (08:23→21:08)
[2024-12-03] MEDS: BUMETANIDE 1 MG TAB PO SCH (10:21)
[2024-12-03] MEDS: metroNIDAZOLE 500 MG TAB PO SCH (14:53)
[2024-12-03] MEDS ORDERED: 0.2 MICRON FILTER SET 1 EACH IV ONE (15:30)
[2024-12-03] MEDS ORDERED: Heparin IV Adult Wt-Based Standard *NO* INITIAL Bolus Protocol IV SCH (15:35)
[2024-12-03] MEDS: AMIODARONE / D5W 360 MG/200 ML BAG IV ONE (16:09)
[2024-12-03] MEDS: WARFARIN SOD 2.5 MG TAB PO SCH (17:05)
[2024-12-03] MEDS: HEPARIN 25000 UNIT/500 ML D5W 25,000 UNITS/500 ML BAG IV SCH (17:34)
--- NOTE | 2024-12-03 18:58 | Hospitalist Progress Note ---
Date of Service December 03, 2024 Assessment & Plan (1) Severe sepsis: Plan: source - RLE cellulitis cellulitis nearly resolved course complicated by sepsis-associated ATN/PETE along with hypercapnic resp failure cont IV daptomycin - last dose 12/04 has completed cefuroxime course finish flagyl course blood cx's from admission were negative (2) Cellulitis of leg, right: Plan: severe RLE cellulitis cause of severe sepsis nearly resolved previously was on cefepime --> then changed to cefuroxime; completed course of such remains on IV daptomycin - day #9 of 10 today; stop after 12/04 dose remains on IV flagyl no evidence of nec fasc or deeper infection on CT leg arterial duplex study with adequate arterial flow in the RLE blood cx's negative (3) Acute on chronic respiratory failure with hypoxia and hypercapnia: Plan: patient is typically on home auto-BIPAP with blended O2 notes from the pulmonary office noted she uses O2 during the daytime prn had decompensated hypercapnic respiratory failure earlier in the stay (transferred to ICU on 11/23/24 due to severe hypercapnia, lethargy, worsening renal function/high K) then recurred again 11/27 to 11/29 decompensation was in the setting of CONSTANCE, OHS, COPD, and ??pulm edema from PETE & severe sepsis cont BIPAP at night/naps; NC O2 otherwise VBG this am with acceptable parameters (4) Acute on chronic kidney failure: Plan: patient's baseline Creatinine is ~1.7 presented on 11/22 with Cr 2.75 Cr peaked 3.8 sepsis-associated ATN ATN/PETE resolved Cr today again 1.7 resumed usual bumex dosing of 2mg BID BMP am (5) Hyperkalemia: Plan: 2nd to PETE s/p patiromer followed by Julio; had received albuterol, insulin/D50 peak K 5.7 resolved since early in the admission BMP today wnl with normal K level (6) PETE (acute kidney injury): Plan: 2nd to sepsis-associated ATN s/p nephrology consult early in admission but did not require dialysis, etc. PETE resolved BMP am (7) Chronic diastolic CHF (congestive heart failure): Plan: history of such typically on bumex 2mg BID along with meto 25mg BID echo this admission with preserved EF looks compensated today resume usual bumex dosing of 2mg BID cont meto tart 50mg BID (8) Controlled type 2 diabetes mellitus with kidney complication, with long-term current use of insulin: Plan: a1c early October <7% cont basal-bolus insulin her BSGs have been low last 24 hours reduce her lantus reduce her novolog parameters (9) Chronic venous insufficiency: Plan: severe typically on bumex 2mg BID - will resume elevation of legs when able (10) COPD (chronic obstructive pulmonary disease): Plan: without exacerbation at this time defer on systemic steroids (11) Hypothyroidism: Plan: TSH 1.8 cont synthroid (12) CONSTANCE (obstructive sleep apnea): Plan: BIPAP (13) Morbid obesity with BMI of 60.0-69.9, adult: Plan: BMI 62-63 (14) PAF (paroxysmal atrial fibrillation): Plan: had been in NSR upon admission and then for the first portion of the stay typically on metoprolol, amiodarone, and warfarin chronically she then developed a.fib in first 24 hours of the hospitalization has remained in a.fib since that time rates since then 90s to low 100s - mostly latter meto tartrate had been increased/titrated to 75mg BID but rate control not optimal initially I increased her amiodarone to 200mg BID with hopes of converting her back to NSR I spoke with cardiology today they advised changing the PO amio to drip form send amio level heparin drip while INR is <2 increase coumadin back to 2.5mg daily daily INR will d/w cardiology again tomorrow (15) Acute metabolic encephalopathy: Plan: 2nd to severe sepsis, hypercapnia, PETE, etc. resolved cont BIPAP HS/naps (16) Constipation: Plan: add miralax + senna for maintenance Plan ultimate disposition - rehab at [facility] updated pt's sister by phone this evening care d/w [facility] Card[facility] re: a.fib Admission and Anticipated Discharge Date Admission Date: November 22, 2024 Subjective continues to use her BIPAP with sleep tele - a.fib, rates low 100s even at rest occasional 90s patient denies any c/o dyspnea, chest pain, abd pain moved bowels again denies any RLE pain Review of Systems Review of Systems: gen - no fevers or chills cv - no chest pain pulm - no cough GI - no nausea or emesis Physical Exam Physical Exam: gen - morbidly obese, no distress, awake, alert neck - unable to assess for JVD due to neck size heart - irregularly irregular, s1 s2, no murmur; rate low 100s lungs - decreased BS bases, otherwise CTA b/l, no rales abd - soft NT ND BS+, probable ric-umbilical hernia ext - severe venous stasis changes b/l shins and b/l feet skin - cellulitis of RLE from the right knee down to the right foot - nearly resolved; there is mild blistering on the lateral aspect of the proximal morrell but no open ulcerations Results & Data Results & Data Vital Signs (Past 12 Hours) Vital Signs Temp Pulse Pulse Resp BP Pulse Ox O2 Del Method 12/03/24 16:00 102 H 12/03/24 14:44 36.5 C 108 H 20 128/79 97 BiPAP 12/03/24 13:42 111 H 20 97 12/03/24 10:53 36.6 C 108 H 22 121/68 97 Nasal Cannula 12/03/24 08:00 Nasal Cannula 12/03/24 08:00 112 H 12/03/24 07:18 36.6 C 110 H 20 100/79 96 Nasal Cannula O2 Flow Rate FiO2 12/03/24 16:00 12/03/24 14:44 12/03/24 13:42 25 12/03/24 10:53 12/03/24 08:00 2 12/03/24 08:00 12/03/24 07:18 Laboratory Results Laboratory Results - last 24 hr 12/02/24 12/03/24 12/03/24 20:07 06:49 06:52 PT 17.8 H INR 1.7 H VBG pH 7.34 L VBG pCO2 67 H VBG pO2 49 VBG HCO3 36 VBG O2 Saturation 82.7 VBG Base Excess 7.8 Sodium 143 Potassium 4.8 Chloride 104 Carbon Dioxide 36 H Anion Gap 3 BUN 52 H Creatinine 1.73 H Est Cr Clr Drug Dosing 46.9 eGFR 31.59 BUN/Creatinine Ratio 30.1 H Glucose 61 L POC Glucose 146 H Calcium 8.8 Amiodarone Desmethylamiodarone 12/03/24 12/03/24 12/03/24 07:03 10:51 15:30 PT INR VBG pH VBG pCO2 VBG pO2 VBG HCO3 VBG O2 Saturation VBG Base Excess Sodium Potassium Chloride Carbon Dioxide Anion Gap BUN Creatinine Est Cr Clr Drug Dosing eGFR BUN/Creatinine Ratio Glucose POC Glucose 86 106 H Calcium Amiodarone Pending Desmethylamiodarone Pending 12/03/24 15:56 PT INR VBG pH VBG pCO2 VBG pO2 VBG HCO3 VBG O2 Saturation VBG Base Excess Sodium Potassium Chloride Carbon Dioxide Anion Gap BUN Creatinine Est Cr Clr Drug Dosing eGFR BUN/Creatinine Ratio Glucose POC Glucose 75 Calcium Amiodarone Desmethylamiodarone PG Care Time/CCT Total # of Minutes Spent Total Time Spent with Patient: Total time spent is greater than 50% in coordination of care (as documented) at patient's floor/unit and/or counseling patient: Coding Level of Care Code 92663 SUB INP/OBS CARE 3/50MIN Diagnoses Severe sepsis A41.9; R65.20 Cellulitis of leg, right L03.115 Acute on chronic respiratory failure with hypoxia and hypercapnia J96.21; J96.22 Acute on chronic kidney failure N17.9; N18.9 Acute renal failure type: unspecified Chronic kidney disease stage: unspecified stage Hyperkalemia E87.5 PETE (acute kidney injury) N17.9 Chronic diastolic CHF (congestive heart failure) I50.32 Controlled type 2 diabetes mellitus with kidney complication, with long-term current use of insulin E11.29; Z79.4 Chronic venous insufficiency I87.2 COPD (chronic obstructive pulmonary disease) J44.9 Hypothyroidism E03.9 CONSTANCE (obstructive sleep apnea) G47.33 Morbid obesity with BMI of 60.0-69.9, adult E66.01; Z68.44 PAF (paroxysmal atrial fibrillation) I48.0 Acute metabolic encephalopathy G93.41 Constipation K59.00 (4) Acute on chronic kidney failure Acute renal failure type: unspecified Chronic kidney disease stage: unspecified stage Qualified Code(s): N17.9 - Acute kidney failure, unspecified; N18.9 - Chronic kidney disease, unspecified
[2024-12-03] MEDS: AMIODARONE / D5W 360 MG/200 ML BAG IV SCH (21:46)
[2024-12-04 01:05] LABS: ANTI-Xa, UFH(UnfractionatedHep 0.53 IU/ml (0.3-0.7)
[2024-12-04 07:04] LABS: INR 1.7 (0.9-1.1); Prothrombin Time 17.7 Seconds (9.0-12.0)
[2024-12-04 07:19] LABS: Calcium 8.9 mg/dl (8.6-10.3); Creatinine Clr Calc Pharmacy 46.1 ml/min; Potassium 4.7 mmol/L (3.5-5.1)
--- NOTE | 2024-12-04 17:05 | Hospitalist Progress Note ---
Date of Service December 04, 2024 Assessment & Plan (1) Severe sepsis: Plan: source - RLE cellulitis cellulitis resolved course complicated by sepsis-associated ATN/PETE along with hypercapnic resp failure cont IV daptomycin - last dose is today, 12/04 has completed cefuroxime course completed flagyl course blood cx's from admission were negative (2) Cellulitis of leg, right: Plan: severe RLE cellulitis cause of severe sepsis resolved previously was on cefepime --> then changed to cefuroxime; completed course of such today is day #10 of IV daptomycin - stop today stop flagyl there was never evidence of nec fasc or deeper infection on CT leg arterial duplex study with adequate arterial flow in the RLE blood cx's negative (3) Acute on chronic respiratory failure with hypoxia and hypercapnia: Plan: patient is typically on home auto-BIPAP with blended O2 notes from the pulmonary office noted she uses O2 during the daytime prn had decompensated hypercapnic respiratory failure earlier in the stay (transferred to ICU on 11/23/24 due to severe hypercapnia, lethargy, worsening renal function/high K) then recurred again 11/27 to 11/29 decompensation was in the setting of CONSTANCE, OHS, COPD, and ??pulm edema from PETE & severe sepsis cont BIPAP at night/naps; NC O2 otherwise most recent VBG acceptable parameters (4) Acute on chronic kidney failure: Plan: patient's baseline Creatinine is ~1.7 presented on 11/22 with Cr 2.75 Cr peaked 3.8 sepsis-associated ATN ATN/PETE resolved Cr today again 1.75 BMP am (5) Hyperkalemia: Plan: 2nd to PETE peak K 5.7 resolved since early in the admission (6) PETE (acute kidney injury): Plan: 2nd to sepsis-associated ATN s/p nephrology consult early in admission but did not require dialysis, etc. PETE resolved BMP am (7) Chronic diastolic CHF (congestive heart failure): Plan: compensated echo this admission with preserved EF cont bumex 2mg BID cont meto tart 50mg BID (8) Controlled type 2 diabetes mellitus with kidney complication, with long-term current use of insulin: Plan: a1c early October <7% cont basal-bolus insulin her BSGs had been low - now improved cont reduced lantus cont reduced novolog (9) Chronic venous insufficiency: Plan: severe typically on bumex 2mg BID - will resume elevation of legs when able has compression stockings at home - encouraged her to use these in the future (10) COPD (chronic obstructive pulmonary disease): Plan: without exacerbation at this time defer on systemic steroids (11) Hypothyroidism: Plan: TSH 1.8 cont synthroid (12) CONSTANCE (obstructive sleep apnea): Plan: BIPAP (13) Morbid obesity with BMI of 60.0-69.9, adult: Plan: BMI 62-63 (14) PAF (paroxysmal atrial fibrillation): Plan: had been in NSR upon admission and then for the first portion of the stay typically on metoprolol, amiodarone, and warfarin chronically she then developed a.fib in first 24 hours of the hospitalization has remained in a.fib since that time rates since then 90s to low 100s - mostly latter meto tartrate had been increased/titrated to 75mg BID but rate control not optimal initially I increased her amiodarone to 200mg BID with hopes of converting her back to NSR I spoke with cardiology 12/03 they advised changing the PO amio to drip form has been on amio drip since 12/03 sent amio level, pending heparin drip while INR is <2; INR today 1.7 cont coumadin 2.5mg daily daily INR due to uncontrolled a.fib and little room with AV mariela agents I asked Dr Gallegos, her primary glass science engineer, to see her today Dr Gallegos to perform cardioversion tomorrow am (15) Acute metabolic encephalopathy: Plan: 2nd to severe sepsis, hypercapnia, PETE, etc. resolved cont BIPAP HS/naps to keep hypercapnia at bay (16) Constipation: Plan: resolved Plan ultimate disposition - rehab at [facility] - 12/05 if cardioversion is successful ? updated pt's sister by phone 12/03 and again today care d/w Dr Gallegos from cardiology Admission and Anticipated Discharge Date Admission Date: November 22, 2024 Subjective patient was sitting in the chair during the visit she had no specific complaints eating well no dyspnea tele continues to show rapid a.fib Dr Gallegos met with her - they have decided to proceed with cardioversion tomorrow as she was in NSR at time of admission denies any RLE pain Review of Systems Review of Systems: gen - no fevers or chills cv - no chest pain pulm - no cough GI - no abd pain or N/V; multiple stools today Physical Exam Physical Exam: gen - morbidly obese, no distress, awake, alert - best she has looked all week; sitting in chair neck - unable to assess for JVD due to neck size heart - irregularly irregular, s1 s2, no murmur; rate >100 lungs - decreased BS bases, otherwise CTA b/l, no rales or wheezing; no increased work of breathing abd - soft NT ND BS+, probable ric-umbilical hernia - reducible ext - severe venous stasis changes b/l shins and b/l feet skin - cellulitis of RLE from the right knee down to the right foot - nearly resolved; minimal erythema about 2-3 inches inferior to R knee; there is mild blistering on the lateral aspect of the proximal morrell but no open ulcerations - unchanged; no heat to palpation Results & Data Results & Data Vital Signs (Past 12 Hours) Vital Signs Temp Pulse Pulse Resp BP BP Pulse Ox 12/04/24 15:41 94 H 12/04/24 15:34 36.7 C 100 H 19 116/84 100 12/04/24 11:30 12/04/24 11:30 102 H 12/04/24 11:13 104 H 19 112/75 99 12/04/24 08:25 36.6 C 96 H 18 118/74 94 O2 Del Method O2 Flow Rate 12/04/24 15:41 12/04/24 15:34 Nasal Cannula 2 12/04/24 11:30 Nasal Cannula 2 12/04/24 11:30 12/04/24 11:13 Nasal Cannula 12/04/24 08:25 Nasal Cannula Laboratory Results Laboratory Results - last 24 hr 12/03/24 12/03/24 12/04/24 20:03 23:24 05:23 PT 17.7 H INR 1.7 H Heparin Anti-Xa, Unfract 0.53 Sodium 141 Potassium 4.7 Chloride 102 Carbon Dioxide 36 H Anion Gap 3 BUN 49 H Creatinine 1.75 H Est Cr Clr Drug Dosing 46.1 eGFR 31.16 BUN/Creatinine Ratio 28.0 H Glucose 131 H POC Glucose 145 H Calcium 8.9 12/04/24 12/04/24 12/04/24 07:05 11:17 16:17 PT INR Heparin Anti-Xa, Unfract Sodium Potassium Chloride Carbon Dioxide Anion Gap BUN Creatinine Est Cr Clr Drug Dosing eGFR BUN/Creatinine Ratio Glucose POC Glucose 130 H 165 H 159 H Calcium PG Care Time/CCT Total # of Minutes Spent Total Time Spent with Patient: Total time spent is greater than 50% in coordination of care (as documented) at patient's floor/unit and/or counseling patient: Coding Level of Care Code 61043 SUB INP/OBS CARE 3/50MIN Diagnoses Severe sepsis A41.9; R65.20 Cellulitis of leg, right L03.115 Acute on chronic respiratory failure with hypoxia and hypercapnia J96.21; J96.22 Acute on chronic kidney failure N17.9; N18.9 Acute renal failure type: unspecified Chronic kidney disease stage: unspecified stage Hyperkalemia E87.5 PETE (acute kidney injury) N17.9 Chronic diastolic CHF (congestive heart failure) I50.32 Controlled type 2 diabetes mellitus with kidney complication, with long-term current use of insulin E11.29; Z79.4 Chronic venous insufficiency I87.2 COPD (chronic obstructive pulmonary disease) J44.9 Hypothyroidism E03.9 CONSTANCE (obstructive sleep apnea) G47.33 Morbid obesity with BMI of 60.0-69.9, adult E66.01; Z68.44 PAF (paroxysmal atrial fibrillation) I48.0 Acute metabolic encephalopathy G93.41 Constipation K59.00 (4) Acute on chronic kidney failure Acute renal failure type: unspecified Chronic kidney disease stage: unspecifi ed stage Qualified Code(s): N17.9 - Acute kidney failure, unspecified; N18.9 - Chronic kidney disease, unspecified
--- NOTE | 2024-12-04 17:09 | Cardiology Progress Note ---
Date of Service December 04, 2024 Assessment & Plan (1) PAF (paroxysmal atrial fibrillation): Plan 1. We discussed options for treatment to include cardioversion or a change in medical therapy. We could stop her amiodarone, accept persistent/permanent AF and intensify rate control with diltiazem. I think cardioversion is more attractive in the short term as she has had a long period free from AF on very low dose amiodarone. Admission and Anticipated Discharge Date Admission Date: November 22, 2024 Subjective Patient with a long history of PAF. Generally in sinus rhythm recently on low dose amiodarone. Admitted for sepsis associated with cellulitis. Now in AF with suboptimal rate control. No overt symptoms. Results & Data Vital Signs (Past 12 Hours) Vital Signs Temp Pulse Pulse Resp BP BP Pulse Ox 12/04/24 15:41 94 H 12/04/24 15:34 36.7 C 100 H 19 116/84 100 12/04/24 11:30 12/04/24 11:30 102 H 12/04/24 11:13 104 H 19 112/75 99 12/04/24 08:25 36.6 C 96 H 18 118/74 94 O2 Del Method O2 Flow Rate 12/04/24 15:41 12/04/24 15:34 Nasal Cannula 2 12/04/24 11:30 Nasal Cannula 2 12/04/24 11:30 12/04/24 11:13 Nasal Cannula 12/04/24 08:25 Nasal Cannula PG Care Time/CCT Total # of Minutes Spent Total Time Spent with Patient: Total time spent is greater than 50% in coordination of care (as documented) at patient's floor/unit and/or counseling patient: Coding Diagnoses PAF (paroxysmal atrial fibrillation) I48.0
[2024-12-05 07:10] LABS: BUN Creatinine Ratio 26.7 (10-20); Calcium 8.9 mg/dl (8.6-10.3); Creatinine Clr Calc Pharmacy 42.2 ml/min; Potassium 4.7 mmol/L (3.5-5.1)
[2024-12-05 07:20] LABS: Prothrombin Time 20.2 Seconds (9.0-12.0)
--- NOTE | 2024-12-05 07:42 | Anesthesiology Consultation ---
Date of Service December 05, 2024 Assessment & Plan (1) Encounter for pre-operative examination: Chart Review Chart Review: Acceptable Risk for Surgery, Patient NOT seen in Pre Admission Testing and entry level sales representative initiated Consults Requested none ASA ASA3 Proposed Anesthesia Anesthesia Type: MAC Risk / Benefits Reviewed With: PT / POA / Parent / Guardian, Accepts Plan and Informed Consent Obtained History Surgery Operation Date: 12/05/24 07:15 Proposed Procedures p Cardioversion w/Anesthesia Sedation - Tyson Gallegos MD Height/Weight Height: 5 ft 3 in Weight: 162 kg Allergies Allergy/AdvReac Type Severity Reaction Status Date / Time amoxicillin Allergy Severe SOB, RASH Verified 10/30/24 15:10 Penicillins Allergy Severe SOB, RASH Verified 10/30/24 15:10 clarithromycin Allergy Intermediate "feels Verified 10/30/24 15:10 like flying high" clindamycin Allergy Intermediate "feels Verified 10/30/24 15:10 like flying high" fluconazole Allergy Intermediate "feels Verified 10/30/24 15:10 like flying high" sulfamethoxazole Allergy Intermediate "feels Verified 10/30/24 15:10 like flying high" trimethoprim Allergy Intermediate "feels Verified 10/30/24 15:10 like flying high" Bactrim Allergy Unknown UNKNOWN Verified 02/21/18 10:32 empagliflozin AdvReac Severe Verified 10/30/24 15:10 [From Jardiance] codeine AdvReac Mild ITCHING, Verified 10/30/24 15:10 NAUSEA Medications Home Medications Medication Instructions Recorded Confirmed Last Taken meclizine 12.5 mg tablet 12.5 mg PO TID PRN Dizziness 10 09/26/16 11/22/24 07/20/19 days #30 tabs Wheelchair (Manual) (Manual #1 ea 08/04/21 11/22/24 Unknown Wheelchair) pen needle, diabetic 31 gauge x #200 ea 10/09/22 11/22/24 Unknown 01/04" (BD Ultra-Fine Mini Pen Needle) lfvvrjka-sebi-wlvt 8 mg-folic 400 1 tab PO QAM 12/27/22 11/22/24 03/06/24 mcg-K 50 mcg-lutein 300 mcg tablet (Centrum Silver Women) acetaminophen 500 mg capsule 1,000 mg PO UD PRN Pain 01/05/23 11/22/24 01/10/23 ferrous sulfate 325 mg (65 mg 325 mg PO BID 01/05/23 11/22/24 03/04/24 iron) tablet Oxygen Home #1 ea 01/19/23 11/22/24 Unknown buspirone 5 mg tablet 5 mg PO TID PRN anxiety #60 tabs 06/28/23 11/22/24 07/29/23 magnesium chloride 64 mg 64 mg PO BID #180 tabs 11/26/23 11/22/24 03/06/24 (magnesium chloride) tablet,delayed release nystatin 100,000 unit/gram topical 1 applic topical BID PRN itching 01/11/24 11/22/24 03/06/24 powder #60 grams metoprolol tartrate 25 mg tablet 25 mg PO BID 90 days #180 tabs 02/12/24 11/22/24 03/07/24 05:30 sanxddlj-qob-jjgfzv 5 mg-zeaxanth 1 cap PO DAILY 02/20/24 11/22/24 03/06/24 1 mg-bilberry 7.5 mg-herbal capsule (Piktochart Health Formula) betamethasone dipropionate 0.05 % 1 applic topical BID #45 grams 03/31/24 11/22/24 Unknown topical ointment bumetanide 2 mg tablet 2 mg PO BID #180 tabs 05/08/24 11/22/24 Unknown insulin syringe-needle U-100 1 mL #200 ea 06/10/24 11/22/24 Unknown 31 gauge x 5/16" (BD Insulin Syringe Ultra-Fine) blood sugar diagnostic (OneTouch #200 ea 06/14/24 11/22/24 Unknown Ultra Test strips) flash glucose scanning reader #1 ea 06/14/24 11/22/24 Unknown (FreeStyle Crist[place] 2 [place]) insulin glargine 100 unit/mL (3 30 unit (0.3 mL) subcut BID #30 mL 08/04/24 11/22/24 Unknown mL) subcutaneous pen (Basaglar KwikPen U-100 Insulin) triamcinolone acetonide 0.1 % 1 applic topical .COMPLEX #30 grams 08/20/24 11/22/24 Unknown topical ointment dxijnrotpa-qdeifbryst-zgap See Rx Instructions topical 09/16/24 11/22/24 Unknown vera-vits A,D,and E 20 %-3 % .COMPLEX PRN VAGINAL SX topical cream (Vagisil) miconazole nitrate 2 % vaginal 1 applic vaginal UD PRN DIRECTED 09/16/24 11/22/24 Unknown cream (Monistat 7) mupirocin 2 % topical ointment 1 applic topical BID 09/16/24 11/22/24 Unknown tacrolimus 0.1 % topical ointment 1 applic topical BID 09/16/24 11/22/24 Unknown amiodarone 100 mg tablet 100 mg PO QAM #90 tabs 09/22/24 11/22/24 Unknown albuterol sulfate 90 mcg/actuation 2 puff inhalation Q6H PRN 10/28/24 11/22/24 Unknown aerosol inhaler Shortness Of Breath #18 grams insulin lispro 100 unit/mL 25 - 35 unit (0.25 - 0.35 mL) 11/18/24 11/22/24 Unknown subcutaneous solution (Admelog U-) subcut UD #31.5 mL atorvastatin 40 mg tablet (Lipitor) 40 mg PO QAM #90 tabs 11/19/24 11/22/24 Unknown Lactobacillus acidophilus 10 10,000 mmu cells PO DAILY 11/22/24 11/22/24 Unknown billion cell capsule (Probiotic) apremilast 30 mg tablet (Otezla) 30 mg PO QAM 11/22/24 11/22/24 Unknown calcitriol 0.25 mcg capsule 0.25 mcg PO 3XWK 11/22/24 11/22/24 Unknown clotrimazole-betamethasone 1 1 applic topical UD PRN DIRECTED 11/22/24 11/22/24 Unknown %-0.05 % topical cream ezetimibe 10 mg tablet 10 mg PO QAM 11/22/24 11/22/24 Unknown irbesartan 150 mg tablet 150 mg PO QAM 11/22/24 11/22/24 Unknown levothyroxine 50 mcg tablet 50 mcg PO UD 11/22/24 11/22/24 Unknown warfarin 5 mg tablet (Jantoven) 2.5 mg PO 3XWK 11/22/24 11/22/24 Unknown warfarin 5 mg tablet (Jantoven) 5 mg PO 4XWK 11/22/24 11/22/24 Unknown Active Medications Generic Name Dose Route Start Last Admin Trade Name Freq PRN Reason Stop Dose Admin Acetaminophen 650 mg 11/22/24 21:17 12/01/24 21:07 Acetaminophen 325 Mg Tab PO 12/22/24 21:16 650 mg Q4H PRN Administration Pain or Fever Amiodarone HCl 200 mg 12/02/24 21:00 12/03/24 08:25 Amiodarone 200 Mg Tab PO 01/01/25 20:59 200 mg BID [place] Administration Apremilast 1 each 11/28/24 09:00 12/04/24 08:39 Apremilast 30 Mg PO 12/28/24 08:59 1 each DAILY [place] Administration Atorvastatin Calcium 40 mg 11/26/24 09:00 11/27/24 08:48 Atorvastatin 40 Mg Tab PO 12/26/24 08:59 40 mg QAM [place] Administration Bumetanide 2 mg 11/26/24 09:00 12/04/24 17:30 Bumetanide 1 Mg Tab PO 12/26/24 08:59 2 mg [id number] [place] Administration Buspirone HCl 5 mg 11/25/24 23:31 12/04/24 17:30 Buspirone 5 Mg Tab PO 12/26/24 08:59 5 mg TID PRN Administration Anxiety Calcitriol 0.25 mcg 11/26/24 09:00 12/03/24 10:21 Calcitriol 0.25 Mcg Capsule PO 12/26/24 08:59 0.25 mcg [id number] [place] Administration Dextrose 25 - 50 ml 11/22/24 21:17 11/24/24 04:55 Dextrose 50% 50 Ml Syringe IV 12/22/24 21:16 25 ml UD PRN Administration Hypoglycemia Protocol Protocol Ezetimibe 10 mg 11/23/24 09:00 12/04/24 08:39 Ezetimibe 10 Mg Tab PO 12/23/24 08:59 10 mg QAM [place] Administration Fluocinonide 1 appln 11/22/24 22:00 12/04/24 21:12 Fluocinonide 0.05% Oint 15 Gm Tube EXT 12/22/24 21:59 1 appln BID [place] Administration Hydrocortisone 25 mg 11/30/24 14:24 12/01/24 09:45 Hydrocortisone Acetate 25 Mg Supp NM 12/14/24 14:23 25 mg TID PRN Administration Hemorrhoids Heparin Sodium/Dextrose 25,000 units in 500 mls @ 35 mls/hr 12/03/24 16:00 12/04/24 21:05 Heparin 14052 Unit/500 Ml D5w IV 01/02/25 15:59 1,750 units/hr .[id number] [place] 35 mls/hr Administration Protocol 1,750 UNITS/HR Insulin Aspart 0 units 11/24/24 11:30 12/04/24 21:06 Insulin Aspart Per Unit Charge SC 12/24/24 11:29 Not Given ACHS [facility] Insulin Glargine 18 units 12/03/24 21:00 12/04/24 21:07 Lantus Per Unit Charge SQ 01/02/25 20:59 Not Given BID [place] Lactobacillus Acidophilus 1,250 mg 11/26/24 09:00 12/04/24 08:38 Advanced Probiotic 625 Mg Capsule PO 12/26/24 08:59 1,250 mg DAILY [place] Administration Levothyroxine Sodium 50 mcg 11/24/24 06:30 12/05/24 05:42 Levothyroxine Sodium 50 Mcg Tablet PO 12/24/24 06:29 50 mcg [id number] [place] Administration Levothyroxine Sodium 100 mcg 11/23/24 06:30 11/30/24 05:40 Levothyroxine Sodium 50 Mcg Tablet PO 12/23/24 06:29 100 mcg [email or web address] [place] Administration Metoprolol Tartrate 50 mg 12/02/24 21:00 12/04/24 21:09 Metoprolol Tartrate 50 Mg Tab PO 01/01/25 20:59 50 mg BID [place] Administration Metronidazole 500 mg 12/03/24 14:00 12/05/24 05:42 Metronidazole 500 Mg Tab PO 12/05/24 13:14 500 mg Q8H [place] Administration Miscellaneous 15 - 30 gm 11/22/24 21:17 11/25/24 05:05 Carbohydrates For Hypoglycemia PO 12/22/24 21:16 15 gm UD PRN Administration Hypoglycemia Protocol Nystatin 1 appln 11/26/24 10:01 12/02/24 05:43 Nystatin Powder 15gm Btl EXT 12/26/24 10:00 1 appln BID PRN Administration Affected Skin Folds Ondansetron HCl 4 mg 11/22/24 21:17 11/23/24 06:05 Ondansetron Inj 2 Mg/Ml 2 Ml Vial IV 12/22/24 21:16 4 mg Q6H PRN Administration Nausea Sodium Chloride 1 sprays 11/29/24 23:26 12/01/24 08:26 Sodium Chloride 0.65% Na Soln 45 Ml ([place]) NA 12/29/24 23:25 1 sprays PRN PRN Administration Congestion Warfarin Sodium 2.5 mg 12/03/24 16:00 12/04/24 16:16 Warfarin Sod 2.5 Mg Tab PO 01/02/25 15:59 2.5 mg DAILY@1600 [place] Administration NPO Date Last Intake of Fluids: 12/05/24 Time Last Intake of Fluids: 06:30 Last Intake of Fluids Comment: Sip with med Date Last Intake of Solids: 12/04/24 Time Last Intake of Solids: 20:00 Past Medical History Medical History Type 2 diabetes mellitus with renal complication Hypertension On home oxygen therapy uses 2L O2 at night w/cpap and in the daytime prn Diabetic neuropathy Hx of gastric ulcer Depression Chronic pain of left knee DJD Osteoarthritis Degenerative disc disease Diabetes mellitus, type 2 On anticoagulant therapy coumadin daily Hyperlipidemia Atrial flutter hx of Chronic obstructive pulmonary disease inhaler prn Obesity Diastolic CHF Atrial fibrillation Paroxysmal. Cardioversion x 2. follows with Dr. Rapp---on coumadin. Exercise / Class Metabolic Activity III < 4 Walking/Shop/Light housework Past Family History Family History Sister Family history of reaction to anesthesia nausea/vomiting Hypothyroidism Father Family history of reaction to anesthesia nausea/vomiting Family hx colonic polyps Hypertension Mother Diabetes Hypertension Denies family history of Ovarian cancer Prostate cancer Myocardial infarction Breast cancer Colorectal cancer Past Surgical History Surgical History Family history of reaction to anesthesia FATHER>NAUSEA AND DIZZINESS History of nasal cauterization History of colonoscopy with polypectomy Nausea and vomiting after administration of anesthetic agent with "extreme vertigo" History of total hysterectomy with bilateral salpingo-oophorectomy (BSO) History of lumpectomy of right breast benign History of carpal tunnel surgery of left wrist History of tooth extraction most teeth removed--full upper denture/partial lower History of cardioversion x2, [facility]; most recent 2019 Past Anesthesia History No Hx of Anesthesia Complications and No Family Hx of Anesthesia Complications History of PONV History of PONV and Hx of Motion Sickness Social History Smoking Status: Former smoker tobacco type: cigarettes Do You Dip or Chew Tobacco: No Hx Alcohol Use: No Alcohol type: beer and wine alcohol intake frequency: holidays/special occasions only Hx Substance Use: No substance use type: does not use Physical Exam Vital Signs Last Vital Signs Temp 36.6 C 12/05/24 02:37 Pulse 95 H 12/05/24 07:08 Resp 20 12/05/24 07:08 BP 135/94 12/05/24 07:08 Pulse Ox 98 12/05/24 07:08 O2 Del Method Nasal Cannula 12/05/24 07:08 O2 Flow Rate 2 12/05/24 07:08 FiO2 25 12/05/24 02:23 Constitutional + morbidly obese; no acute distress ENMT Mouth: + dentures and + edentulous Thyromental Distance: > or= 3.5 Finger Breadths Mallampati Class: I Neck normal visual inspection and trachea midline; neck extension not limited Respiratory normal respiratory effort; no respiratory distress Auscultation: lungs clear to auscultation bilaterally; no crackles, no rhonchi and no wheezes Cardiovascular Rate/Rhythm: regular rate; + abnormal rhythm Heart Sounds: no gallop, no murmur and no cardiac rub Musculoskeletal Head/Neck/Chest: full ROM of neck Neurologic moves all extremities and awake Psychiatric Orientation: alert and oriented x 3 Testing Laboratory Results 12/01/24 05:49 12/05/24 06:24 PT 17.7 Seconds (9.0-12.0) H 12/04/24 05:23 INR 1.7 (0.9-1.1) H 12/04/24 05:23 APTT 47 Seconds (21-31) H 11/22/24 14:40 Urine Color Dark Yellow 11/22/24 16:39 Urine Appearance Clear (Clear) 11/22/24 16:39 Urine pH 5.0 (4.5-7.5) 11/22/24 16:39 Ur Specific [place] 1.021 (1.000-1.030) 11/22/24 16:39 Urine Protein 1+ (Negative) H 11/22/24 16:39 Urine Glucose (UA) Negative (Negative) 11/22/24 16:39 Urine Ketones Trace (Negative) H 11/22/24 16:39 Urine Nitrite Negative (Negative) 11/22/24 16:39 Ur Leukocyte Esterase Negative (Negative) 11/22/24 16:39 Urine WBC (Auto) 0-5 /hpf (0-5) 11/22/24 16:39 Urine RBC (Auto) 0-2 /hpf (0-2) 11/22/24 16:39 U Hyaline Cast (Auto) >20 /lpf (0-2) H 11/22/24 16:39 U Epithel Cells (Auto) 0-2 /hpf (0-2) 11/22/24 16:39 Urine Bacteria (Auto) None Seen (None Seen) 11/22/24 16:39 11/22/24 16:09 Aerobic Blood Culture - Final Blood No growth in Aerobic bottle after 5 days. Anaerobic Blood Culture - Final No growth in Anaerobic bottle after 5 days. 11/22/24 15:40 Aerobic Blood Culture - Final Blood No growth in Aerobic bottle after 5 days. Anaerobic Blood Culture - Final No growth in Anaerobic bottle after 5 days. 12/04/24 20:46 POC Glucose 175 H
--- NOTE | 2024-12-05 07:56 | Cardioversion ---
Date of Service December 05, 2024 PG Electrical Cardioversion Rp Electrical Cardioversion Report Procedure performed: Cardioversion Indication: Atrial fibrillation Staff research and evaluation analyst: Tyson Gallegos MD Procedure in detail: The patient was informed of the risks benefits and alternatives to the intended procedure. She understood such which proceed. He was taken to the cardiac catheterization suite holding area. A general anesthetic was administered by the Anesthesiology Service. Once appropriately anesthetized, the patient was cardioverted using 200 joules delivered in a biphasic fashion. This returned the patient to sinus rhythm. The patient tolerated procedure well, there were no immediate complications. Patient was neurologically intact subsequent to the procedure. Impression: Successful cardioversion from atrial fibrillation to normal sinus rhythm Coding Level of Care Code 89895 CARDIOVERSION, ELECTIVE Additional Codes Electrical Cardioversion Report ([id number])
[2024-12-05 08:48] VITALS: TEMP 97.3
--- NOTE | 2024-12-05 09:33 | Anesthesiology Progress Note ---
Date of Service December 05, 2024 Anesthesia Post Procedure Vital Signs Vital Signs: Temp Pulse Pulse Resp BP BP Pulse Ox 12/05/24 08:48 36.3 C L 59 L 16 126/70 96 12/05/24 08:12 58 L 18 110/56 L 100 12/05/24 08:06 56 L 18 111/52 L 100 12/05/24 07:52 57 L 16 100/49 L 100 12/05/24 07:08 135/94 12/05/24 07:08 36.6 C 95 H 20 98 12/05/24 02:37 36.6 C 93 H 19 125/78 97 12/05/24 02:23 96 H 19 99 12/04/24 23:29 87 18 99 12/04/24 22:49 36.3 C L 95 H 16 126/82 96 12/04/24 20:00 12/04/24 20:00 36.3 C L 101 H 20 125/87 97 12/04/24 15:41 94 H 12/04/24 15:34 36.7 C 100 H 19 116/84 100 12/04/24 11:30 12/04/24 11:30 102 H 12/04/24 11:13 104 H 19 112/75 99 O2 Del Method O2 Flow Rate FiO2 12/05/24 08:48 Nasal Cannula 12/05/24 08:12 Nasal Cannula 2 12/05/24 08:06 Nasal Cannula 2 12/05/24 07:52 Nasal Cannula 6 12/05/24 07:08 12/05/24 07:08 Nasal Cannula 2 12/05/24 02:37 BiPAP 12/05/24 02:23 25 12/04/24 23:29 25 12/04/24 22:49 Room Air 2 12/04/24 20:00 Nasal Cannula 2 12/04/24 20:00 Nasal Cannula 2 12/04/24 15:41 12/04/24 15:34 Nasal Cannula 2 12/04/24 11:30 Nasal Cannula 2 12/04/24 11:30 12/04/24 11:13 Nasal Cannula Pain Intensity Left Knee: Pain Intensity: 8 Transfer of Care Handoff Completed per policy Notes Mental Status: alert / awake / arousable and participated in evaluation Patient Amnestic to Procedure: Yes Nausea / Vomiting: adequately controlled Pain: adequately controlled Airway Patency, RR, SpO2: stable & adequate BP & HR: stable & adequate Hydration State: stable & adequate Anesthetic Complications: no major complications apparent
[2024-12-05 11:31] VITALS: RESP 17
--- NOTE | 2024-12-05 11:48 | Cardiology Progress Note ---
Date of Service December 05, 2024 Assessment & Plan (1) PAF (paroxysmal atrial fibrillation): Plan 1. Status post cardioversion this morning. She reverted to sinus bradycardia. We will see if this improves any of her symptoms. More importantly, I think she has had an extended duration of sinus rhythm leading up to her recent atrial fibrillation and my hope is that by maintaining her on low-dose amiodarone we can continue a sinus rhythm. She should continue systemic anticoagulation with warfarin. Therapeutic today. I think we will continue amiodarone 200 mg daily. She can follow up in the outpatient setting for further direction. Admission and Anticipated Discharge Date Admission Date: November 22, 2024 Subjective The patient underwent a cardioversion earlier this morning. No specific complaints leading up to the procedure. Afterwards she seemed to feel well. She did not describe breathing difficulty. She was up in a chair for brief period yesterday. Tolerating a diet. Minimal ambulation. Review of Systems Review of Systems: Per HPI Physical Exam Physical Exam: She is alert and oriented x3. Mood affect appear normal. She answered all questions appropriately. Obese HEENT: Sclerae are anicteric. Pupils are equal and reactive to light and accommodation. Extraocular movements were intact. Neuro: Cranial nerves intact Lungs: Normal respiratory effort Cardiac: The rhythm was regular. Normal rate. Abdomen: The abdomen was soft and nontender. Extremities: Patient has bilateral radial pulses that are equal in intensity. There is no evidence cyanosis or clubbing. Skin: There are no rashes noted on examination today. Results & Data Vital Signs (Past 12 Hours) Vital Signs Temp Pulse Pulse Resp BP BP Pulse Ox 12/05/24 11:29 36.3 C L 69 17 120/70 98 12/05/24 08:48 36.3 C L 59 L 16 126/70 96 12/05/24 08:12 58 L 18 110/56 L 100 12/05/24 08:06 56 L 18 111/52 L 100 12/05/24 07:52 57 L 16 100/49 L 100 12/05/24 07:08 135/94 12/05/24 07:08 36.6 C 95 H 20 98 12/05/24 02:37 36.6 C 93 H 19 125/78 97 12/05/24 02:23 96 H 19 99 O2 Del Method O2 Flow Rate FiO2 12/05/24 11:29 Nasal Cannula 12/05/24 08:48 Nasal Cannula 12/05/24 08:12 Nasal Cannula 2 12/05/24 08:06 Nasal Cannula 2 12/05/24 07:52 Nasal Cannula 6 12/05/24 07:08 12/05/24 07:08 Nasal Cannula 2 12/05/24 02:37 BiPAP 12/05/24 02:23 25 Laboratory Results Abnormal Lab Results 12/04/24 12/04/24 12/05/24 16:17 20:46 06:24 PT 20.2 H INR 2.0 H Heparin Anti-Xa, Unfract 1.20 H* Sodium 139 Potassium 4.7 Chloride 100 Carbon Dioxide 36 H Anion Gap 3 BUN 51 H Creatinine 1.91 H Est Cr Clr Drug Dosing 42.2 eGFR 28.05 BUN/Creatinine Ratio 26.7 H Glucose 151 H POC Glucose 159 H 175 H Calcium 8.9 12/05/24 12/05/24 08:46 11:06 PT INR Heparin Anti-Xa, Unfract Sodium Potassium Chloride Carbon Dioxide Anion Gap BUN Creatinine Est Cr Clr Drug Dosing eGFR BUN/Creatinine Ratio Glucose POC Glucose 169 H 187 H Calcium Diagnostic Findings Echocardiogram 11/25/2024: Normal LV systolic function with ejection fraction of 65-70%. Moderate LVH. Mild mitral regurgitation. Moderate dilation of the inferior vena cava. PG Care Time/CCT Total # of Minutes Spent Total Time Spent with Patient: Total time spent is greater than 50% in coordination of care (as documented) at patient's floor/unit and/or counseling patient: Coding Level of Care Code 66158 SUB INP/OBS CARE 2/35MIN Diagnoses PAF (paroxysmal atrial fibrillation) I48.0
[2024-12-05] MEDS: AMIODARONE 200 MG TAB PO SCH (12:33)
[2024-12-05] MEDS: HEPARIN DRIP~STOP ORDER ONE (12:34)
--- NOTE | 2024-12-05 13:19 | Electrocardiogram Report ---
Test Reason : Blood Pressure : */* mmHG Vent. Rate : 58 BPM Atrial Rate : 58 BPM P-R Int : 204 ms QRS Dur : 98 ms QT Int : 494 ms P-R-T Axes : 66 41 15 degrees QTcB Int : 484 ms Sinus bradycardia Nonspecific T wave abnormality Prolonged QT Abnormal ECG When compared with ECG of 28-Nov-2024 12:54, Sinus rhythm has replaced Atrial flutter Vent. rate has decreased by 48 bpm Nonspecific T wave abnormality now evident in Anterior leads Nonspecific T wave abnormality no longer evident in Lateral leads Confirmed by Jovan Calzada ([id number]) on 12/05/2024 1:18:51 PM Referred By: REFERRED SELF Confirmed By: Jovan Calzada
[2024-12-05 15:33] VITALS: O2SAT 100
--- NOTE | 2024-12-05 17:02 | Discharge Summary ---
Discharge Summary Date of Service December 05, 2024 Principal Dx & Hospital Course #1 = Principal Diagnosis (1) Severe sepsis: source - RLE cellulitis cellulitis resolved course complicated by sepsis-associated ATN/PETE along with hypercapnic resp failure cont IV daptomycin - last dose is today, 12/04 has completed cefuroxime course completed flagyl course blood cx's from admission were negative (2) Cellulitis of leg, right: severe RLE cellulitis cause of severe sepsis resolved previously was on cefepime --> then changed to cefuroxime; completed course of such today is day #10 of IV daptomycin - stop today stop flagyl there was never evidence of nec fasc or deeper infection on CT leg arterial duplex study with adequate arterial flow in the RLE blood cx's negative (3) Acute on chronic respiratory failure with hypoxia and hypercapnia: patient is typically on home auto-BIPAP with blended O2 notes from the pulmonary office noted she uses O2 during the daytime prn had decompensated hypercapnic respiratory failure earlier in the stay (transferred to ICU on 11/23/24 due to severe hypercapnia, lethargy, worsening renal function/high K) then recurred again 11/27 to 11/29 decompensation was in the setting of CONSTANCE, OHS, COPD, and ??pulm edema from PETE & severe sepsis cont BIPAP at night/naps; NC O2 otherwise most recent VBG acceptable parameters (4) Acute on chronic kidney failure: patient's baseline Creatinine is ~1.7 presented on 11/22 with Cr 2.75 Cr peaked 3.8 sepsis-associated ATN ATN/PETE resolved Cr today again 1.75 BMP am (5) Hyperkalemia: 2nd to PETE peak K 5.7 resolved since early in the admission (6) PETE (acute kidney injury): 2nd to sepsis-associated ATN s/p nephrology consult early in admission but did not require dialysis, etc. PETE resolved BMP am (7) Chronic diastolic CHF (congestive heart failure): compensated echo this admission with preserved EF cont bumex 2mg BID cont meto tart 50mg BID (8) Controlled type 2 diabetes mellitus with kidney complication, with long-term current use of insulin: a1c early October <7% cont basal-bolus insulin her BSGs had been low - now improved cont reduced lantus cont reduced novolog (9) Chronic venous insufficiency: severe typically on bumex 2mg BID - will resume elevation of legs when able has compression stockings at home - encouraged her to use these in the future (10) COPD (chronic obstructive pulmonary disease): without exacerbation at this time defer on systemic steroids (11) Hypothyroidism: TSH 1.8 cont synthroid (12) CONSTANCE (obstructive sleep apnea): BIPAP (13) Morbid obesity with BMI of 60.0-69.9, adult: BMI 62-63 (14) PAF (paroxysmal atrial fibrillation): had been in NSR upon admission and then for the first portion of the stay typically on metoprolol, amiodarone, and warfarin chronically she then developed a.fib in first 24 hours of the hospitalization has remained in a.fib since that time rates since then 90s to low 100s - mostly latter meto tartrate had been increased/titrated to 75mg BID but rate control not optimal initially I increased her amiodarone to 200mg BID with hopes of converting her back to NSR I spoke with cardiology 12/03 they advised changing the PO amio to drip form has been on amio drip since 12/03 sent amio level, pending heparin drip while INR is <2; INR today 1.7 cont coumadin 2.5mg daily daily INR due to uncontrolled a.fib and little room with AV mariela agents I asked Dr Gallegos, her primary technical project manager, to see her today Dr Gallegos to perform cardioversion tomorrow am (15) Acute metabolic encephalopathy: 2nd to severe sepsis, hypercapnia, PETE, etc. resolved cont BIPAP HS/naps to keep hypercapnia at bay (16) Constipation: resolved Plan ultimate disposition - rehab at [facility] - 12/05 if cardioversion is successful ? updated pt's sister by phone 12/03 and again today care d/w Dr Gallegos from cardiology Admission HPI Per Admitting Provider Iveth is a 69-year-old female with PMH of chronic diastolic CHF, GI bleed, obesity (BMI 63), T2DM, tubular adenoma of the colon, A-fib with RVR, PAD, CKD, JOSUE, TIA, and secondary hyperparathyroidism. She presented via EMS on 11/22 after slipping out of her chair. No head strike or LOC. She was unable to get up on her own, and was a lift assist per EMS. She reports that her symptoms (generalized weakness, chills, and SOB) started last night around 7 PM, and gradually worsened. Patient is on 2L NC at baseline, and CPAP at night. She reports she has chronic SOB at rest and with exertion, as well as orthopnea. She thought originally that this was secondary to JOSUE, as she was told in the past that her iron was low. She then texted her sister today, reporting that she felt "sick". Patient ambulates with a walker at baseline. She reports that she took all her regular medicine today; no recent change in medications. No sick contacts. She denies fever, cough, congestion, abdominal pain, or nausea/vomiting/diarrhea. She denies prior history of DVT/PE. She reports she has no pain in her feet, and denies any drainage from her feet or history of MRSA infections. Patient is a former tobacco cigarette smoker, but quit 8 years ago. She denies any recent alcohol use. SpO2 was 86% on RA for EMS. Patient's SpO2 is 97% on 2L NC at time admission; BP is soft at 104/65, but vitals otherwise stable at time of admission. ED course: Doxycycline 100 mg IV NSS 1000 mL IV Zofran 4 mg IV Cefepime 2000 mg IV Daptomycin 375 mg IV ROS: Patient endorses chills, body-aches, headache, SOB at rest and with exertion (chronic), orthopnea, productive cough (clear sputum production), and chronic redness/swelling in the legs. Patient denies fever, night-sweats, dizziness, lightheadedness, chest pain, chest palpitations, abdominal pain, decreased urinary frequency, burning with urination, or blood in the urine/stool. Discharge Exam gen - morbidly obese, no distress, awake, alert - best she has looked all week; sitting in chair neck - unable to assess for JVD due to neck size heart - irregularly irregular, s1 s2, no murmur; rate >100 lungs - decreased BS bases, otherwise CTA b/l, no rales or wheezing; no increased work of breathing abd - soft NT ND BS+, probable ric-umbilical hernia - reducible ext - severe venous stasis changes b/l shins and b/l feet skin - cellulitis of RLE from the right knee down to the right foot - nearly resolved; minimal erythema about 2-3 inches inferior to R knee; there is mild blistering on the lateral aspect of the proximal morrell but no open ulcerations - unchanged; no heat to palpation Discharge Plan Discharge Items Patient Disposition: Transfer Alf Fac Reason For Visit: SEPSIS Discharge Diagnosis: 1. severe sepsis 2nd to right leg cellulitis - resolved 2. acute on chronic hypercapnic/hypoxic respiratory failure 3. acute metabolic encephalopathy - resolved 4. severe CONSTANCE - on BIPAP 06/03 5. obesity-hypoventilation syndrome 6. paroxysmal atrial fibrillation s/p cardioversion 12/05/24 with temple of normal rhythm 7. acute/chronic diastolic CHF 8. type 2 diabetes 9. morbid obesity - BMI 63 10. hypothyroidism 11. acute kidney injury - due to #1 - resolved 12. chronic kidney disease stage 3b - baseline creatinine 1.7 to 2 13. COPD 14. prior history of breast cancer 15. constipation - resolved 16. psoriasis - on Otezla Activity: Resume your previous activity Non-emergency contact: Primary Care Provider and [facility] Call non-emergency contact if: you have any medication questions and your symptoms worsen Follow-up/Referrals: Odalis Schmitt CRNP, CDE [Nurse Practitioner] - 01/19/25 (diabetes clinic) Tyson Gallegos MD [Physician] - (2 weeks if possible for recheck of a.fib ) Tanvir Baptiste MD [Physician] - 12/23/24 Levi Denson DO [Primary Care Provider] - Diet: Carb Consistent or DM2, Heart Healthy and Low Potassium (2gm) Fluids: 2000ml (8 cups) Addtl Attending Provider Instructions: Mrs Perkins was hospitalized due to severe sepsis from right leg cellulitis (from the right knee all the way down the morrell to the right foot). Course complicated by acute kidney failure, acute on chronic hypercapnic/hypoxic respiratory failure, acute/chronic diastolic CHF, and rapid a.fib. Creatinine returned to baseline (discharge creatinine 12/05/24 - 1.9). Was diuresed with IV then oral bumex. For a.fib she was on IV amiodarone to help restore normal rhythm. However, rapid a.fib continued - thus, was electively cardioverted by Dr James Gallegos on the AM of 12/05/24. Remained in normal rhythm until time of discharge. IV amiodarone converted back to PO amiodarone - 200mg orally once daily. For RLE cellulitis - received 10 days of IV daptomycin along with IV/oral cephalosporins. Cellulitis is resolved. Patient continued on BIPAP with naps & sleep for severe CONSTANCE. Without regular use of her BIPAP she will have CO2 retention. She will be bringing her BIPAP unit with her from home. She blends 2 liters of O2 into the BIPAP. Settings - 16/, rate 18. She is on [id number] oxygen, 2 liters via NC. Discharge INR is 2. Recommendations - 1. Check fingerstick blood sugars before meals & at bedtime. 2. PT/OT - eval and Rx. 3. BMP and INR morning of 12/07/24. 4. Would also check another INR the morning of 12/10/24. 5. Daily standing scale weights, if possible. Notify certified court/medical interpreter of any weight gain of more than 3 pounds over 1-2 days. 6. BIPAP with naps and at HS. 7. 2 liters of oxygen at all times including sleep. (blend into the BIPAP machine) Follow-up - see separate section Return to [facility] if - * any fever over 100 degrees * worsening shortness of breath * chest pains * extreme lethargy or weakness * severe diarrhea (3 or more liquid stools in 24 hours) * bleeding from any location * any other concerns It was our pleasure to care for Mrs Perkins! Pending Studies at Discharge: No Stand-Alone Forms: My [facility] Skilled Items Patient informed of condition?: Yes DNR: No Discharge Level of Care: Skilled Communicable Disease: No Discharge Prognosis: Stable Lines: None Urinary Catheter: No Medications and DC Order Prescriptions: New (DME) Oxygen Home Liters Per Minute See Rx Instructions .ROUTE .MEDSUPPLY Qty: 1 0RF Rx Instructions: 2 liters via NC - continuously. (DME) BiPap Machine Misc See Rx Instructions .ROUTE Qty: 1 0RF Rx Instructions: 16/5; rate 18; blend 2 Liters O2. Continued meclizine 12.5 mg Tablet 12.5 mg PO TID PRN (Reason: Dizziness) 10 Days Qty: 30 Patient Comments: has not used in 2 years (DME) pen needle, diabetic [BD Ultra-Fine Mini Pen Needle] 31 gauge x 3/16" needle See Rx Instructions .Route Qty: 200 3RF Rx Instructions: use twice daily (DME) insulin syringe-needle U-100 [BD Insulin Syringe Ultra-Fine] 1 mL 31 gauge x 5/16 syringe See Rx Instructions [id number] .MEDSUPPLY Qty: 200 5RF Rx Instructions: use 5 syringes daily (DME) FreeStyle Cristiana 2 [place] Misc See Rx Instructions .Route Qty: 1 0RF Rx Instructions: Use as directed to monitor glucose levels (DME) OneTouch Ultra Test Strip See Rx Instructions .Route Qty: 200 5RF Rx Instructions: Check FS 3-4x/day (in case of CGM failure) triamcinolone acetonide 0.1 % ointment 1 applic topical .COMPLEX Qty: 30 0RF Rx Instructions: Apply to area of groin twice daily x 10 days as needed for flaring. albuterol sulfate 90 mcg/actuation HFA aerosol inhaler 2 puff INHALATION Q6H PRN (Reason: Shortness Of Breath) Qty: 18 5RF atorvastatin [Lipitor] 40 mg tablet 40 mg PO QAM Qty: 90 3RF (DME) Manual Wheelchair Device See Rx Instructions .Route Qty: 1 0RF Rx Instructions: WIDE TRANSPORT WHEELCHAIR. USE WHEN OUT OF THE HOME buspirone 5 mg tablet 5 mg PO TID PRN (Reason: anxiety) Qty: 60 2RF (DME) Oxygen Home Liters Per Minute See Rx Instructions .Route Qty: 1 0RF Rx Instructions: Humidification for oxygen betamethasone dipropionate 0.05 % ointment 1 applic topical BID Qty: 45 1RF Rx Instructions: Apply to areas of the arms and legs twice daily for up to 2 weeks as needed for flaring. Centrum Silver Women 8 mg iron-400 mcg-300 mcg tablet 1 tab PO QAM tacrolimus 0.1 % ointment 1 applic topical BID miconazole nitrate [Monistat 7] 2 % cream 1 applic vaginal UD PRN (Reason: DIRECTED) Vagisil 20-3 % cream See Rx Instructions topical .COMPLEX PRN (Reason: VAGINAL SX) Rx Instructions: 0ne topically PRN; metoprolol tartrate 25 mg tablet 25 mg PO BID 90 Days Qty: 180 3RF nystatin 100,000 unit/gram powder 1 applic topical BID PRN (Reason: itching) Qty: 60 4RF Macular Health Formula 5-1-7.5 mg Capsule 1 cap PO DAILY Otezla 30 mg tablet 30 mg PO QAM ezetimibe 10 mg Tablet 10 mg PO QAM calcitriol 0.25 mcg capsule 0.25 mcg PO 3XWK Rx Instructions: SUNDAY/SUNDAY/SUNDAY clotrimazole-betamethasone [Lotrisone] 1-0.05 % Cream 1 applic TOPICAL UD PRN (Reason: DIRECTED) Probiotic 10 billion cell Capsule 10,000 mmu cells PO DAILY bumetanide 2 mg tablet 2 mg PO BID Qty: 180 3RF Rx Instructions: take each morning at 8am and each afternoon at 5pm. levothyroxine 50 mcg tablet 50 mcg PO UD Qty: 0 0RF Rx Instructions: TAKE 2 TABLETS ON SUNDAYS/ ALL OTHER DAYS TAKE 1 TABLET DAILY (best to take at 7913-1243 each morning) Changed insulin glargine [Basaglar KwikPen U-100 Insulin] 100 unit/mL (3 mL) insulin pen 20 unit subcut BID Qty: 30 5RF insulin lispro [Admelog U-100 Insulin lispro] 100 unit/mL solution See Rx Instructions .ROUTE .COMPLEX MDD 120 units Qty: 10 1RF Rx Instructions: Sliding scale insulin; give with meals only. Do not use at bedtime. For BSG of 150-200 give 6 units. For BSG of 201-250 give 8 units. For BSG of 251-300 give 10 units. For BSG of 301-350 give 12 units. For BSG of >350 give 14 units and call certified court/medical interpreter. amiodarone 100 mg tablet 200 mg PO QAM Qty: 90 3RF acetaminophen 500 mg Capsule 1,000 mg PO Q6H PRN (Reason: Pain) Qty: 0 0RF Rx Instructions: max 3000mg in 24 hours. ferrous sulfate 325 mg (65 mg iron) tablet 325 mg PO DAILY Qty: 0 0RF warfarin [Octtoven] 5 mg Tablet 2.5 mg PO DAILY Qty: 0 0RF Discontinued magnesium chloride 64 mg tablet,delayed release (DR/EC) 64 mg PO BID Qty: 180 3RF mupirocin 2 % ointment 1 applic topical BID irbesartan 150 mg tablet 150 mg PO QAM warfarin [Octtoven] 5 mg Tablet 5 mg PO 4XWK Rx Instructions: ,,SUNDAY AND SUNDAY Discharge Orders: Discharge Order (Routine); Ordered 12/05/24 Ordered By: Leonardo Purdy Admission Data Admit Date/Time: 11/22/24 17:22 Attending Provider: Leonardo Purdy Admit Provider: Dougie Phillips Primary Care Provider: Levi Denson Other Providers: Dougie Phillips; Tyler Shay; Davin Wilks; Zach Kathleen; Black,[facility]; [facility]; [facility],; [place],[facility] Hospital Stay Data Consultations 11/22/24 16:23 ED Decision to Admit Stat 11/22/24 17:43 Consult Podiatry Routine 11/23/24 15:30 Consult Internal Audit Senior Manager Routine 11/24/24 19:27 Consult Nephrology Routine Procedures Performed Operation Date: 12/05/24 07:15 Actual Procedures p Cardioversion - Tyson Gallegos MD Diagnostic Imagining Performed 11/24/24 12:22 US arterial duplex LE BI Routine 11/26/24 13:05 CT leg [CT tib/fib RT wo con] Urgent Pending Results Patient Have Any Pending Studies at Discharge: No Discharge Instructions Given to Patient (Per Discharging Provider) Mrs Perkins was hospitalized due to severe sepsis from right leg cellulitis (from the right knee all the way down the morrell to the right foot). Course complicated by acute kidney failure, acute on chronic hypercapnic/hypoxic respiratory failure, acute/chronic diastolic CHF, and rapid a.fib. Creatinine returned to baseline (discharge creatinine 12/05/24 - 1.9). Was diuresed with IV then oral bumex. For a.fib she was on IV amiodarone to help restore normal rhythm. However, rapid a.fib continued - thus, was electively cardioverted by Dr James Gallegos on the AM of 12/05/24. Remained in normal rhythm until time of discharge. IV amiodarone converted back to PO amiodarone - 200mg orally once daily. For RLE cellulitis - received 10 days of IV daptomycin along with IV/oral cephalosporins. Cellulitis is resolved. Patient continued on BIPAP with naps & sleep for severe CONSTANCE. Without regular use of her BIPAP she will have CO2 retention. She will be bringing her BIPAP unit with her from home. She blends 2 liters of O2 into the BIPAP. Settings - 16/, rate 18. She is on [id number] oxygen, 2 liters via NC. Discharge INR is 2. Recommendations - 1. Check fingerstick blood sugars before meals & at bedtime. 2. PT/OT - eval and Rx. 3. BMP and INR morning of 12/07/24. 4. Would also check another INR the morning of 12/10/24. 5. Daily standing scale weights, if possible. Notify certified court/medical interpreter of any weight gain of more than 3 pounds over 1-2 days. 6. BIPAP with naps and at HS. 7. 2 liters of oxygen at all times including sleep. (blend into the BIPAP machine) Follow-up - see separate section Return to [facility] if - * any fever over 100 degrees * worsening shortness of breath * chest pains * extreme lethargy or weakness * severe diarrhea (3 or more liquid stools in 24 hours) * bleeding from any location * any other concerns It was our pleasure to care for Mrs Perkins! Coding Diagnoses Severe sepsis A41.9; R65.20 Cellulitis of leg, right L03.115 Acute on chronic respiratory failure with hypoxia and hypercapnia J96.21; J96.22 Acute on chronic kidney failure N17.9; N18.9 Acute renal failure type: unspecified Chronic kidney disease stage: unspecified stage Hyperkalemia E87.5 PETE (acute kidney injury) N17.9 Chronic diastolic CHF (congestive heart failure) I50.32 Controlled type 2 diabetes mellitus with kidney complication, with long-term current use of insulin E11.29; Z79.4 Chronic venous insufficiency I87.2 COPD (chronic obstructive pulmonary disease) J44.9 Hypothyroidism E03.9 CONSTANCE (obstructive sleep apnea) G47.33 Morbid obesity with BMI of 60.0-69.9, adult E66.01; Z68.44 PAF (paroxysmal atrial fibrillation) I48.0 Acute metabolic encephalopathy G93.41 Constipation K59.00
[2024-12-05 17:11] VITALS: BP 126/70; PULSE 52
== END 2024-12-05 17:46 | DRG 871 ==
LOC: ED 14:31 → SUATTDRO 17:22 → EDINP 17:22 → 2S 21:17 → 1E 11-23 15:57 → 2E 11-28 15:50

== ENCOUNTER 2024-12-08 10:04 | Inpatient (IN) ==
--- NOTE | 2024-12-08 10:38 | Emergency Department Note ---
Impression & Plan Altered mental status, Respiratory acidosis, Acute hyperkalemia, CHF (congestive heart failure), ARF (acute renal failure), Anemia, Acute UTI ED Provider Note NAME: MARY INGRAM AGE: 69 SEX: F : 1955 ARRIVES VIA: Ambulance INFORMANT: [Patient][ems, nursing] ED PROVIDER(S): [Tano Duffy MD] CHIEF COMPLAINT: Lethargic HISTORY OF PRESENT ILLNESS: The patient is a 69-year-old female who left our hospital 3 days ago. She was in for a right lower extremity cellulitis and sepsis. During her hospital stay, she was found at times to be in respiratory acidosis requiring BiPAP. Patient has been at [facility] and as per EMS, she has been lethargic ever since arrival. She has been quite sleepy. They have apparently given IM Lasix to try to help with some of her edema. No fever reported, no vomiting reported. Of note, the patient is sleepy but has no current complaints. PMHx/PSHx/Social Hx: See Below PHYSICAL EXAM: GENERAL: Patient is in no acute distress. HEENT: No acute trauma, normocephalic atraumatic, mucous membranes moist, no nasal congestion. NECK: No stridor, no adenopathy, trachea is midline. Lungs: No obvious respiratory distress, scattered wheezes heard. HEART: Without murmurs gallops or rubs, regular rate and rhythm. ABDOMEN: Soft, nontender, no peritonitis. Obese. EXTREMITIES: No cyanosis, full range of motion of all the joints without pain or difficulty. Marked bilateral pedal edema with chronic skin change and some erythema to the right lower extremity. NEUROLOGIC: Somnolent but awakes to loud voice or tactile stimulation. SKIN: No jaundice, no diaphoresis. DIFFERENTIAL DIAGNOSIS: Respiratory acidosis, liver or renal failure, recurrent sepsis, UTI, medication reaction, dehydration, intracranial bleeding or stroke, among others. EMERGENCY DEPARTMENT PROCEDURES: MEDICAL DECISION MAKING: There is no leukocytosis. The patient is anemic but this is a chronic issue. There was a normal platelet count. INR was elevated consistent with her warfarin use. VBG shows a respiratory acidosis with a CO2 of 119. pH was low at 7.1. Renal panel testing showed a hyperkalemia at 6.9. There was acute renal failure with a creatinine of 4.11. This is around twice her baseline creatinine value. Lactic acid level was not elevated making severe sepsis less likely. There was no concerning liver enzyme elevation. Thyroid testing suggested some hypothyroidism. BNP was elevated consistent with CHF and fluid overload. ECG showed a sinus rhythm, no obvious acute ST elevation. Cardiac enzyme testing x 1 is slightly elevated. This troponin elevation could be secondary to cardiac injury or potentially just mismatch from her pulmonary issues. Urinalysis does suggest infection. Chest x-ray shows CHF. Brain CT does not show any acute bleed or mass effect. On exam, the patient was quite somnolent. The patient was immediately placed on BiPAP given her past history and presentation. She was given 1 amp of IV sodium bicarbonate. She was given IV cefepime as antibiotic coverage. She was given IV calcium gluconate. She was given IV Bumex. A Ng catheter was placed. She was given a 1 hour DuoNeb. Hopefully, the calcium, bicarbonate, DuoNeb and Bumex will help lower the potassium. Hopefully, the BiPAP added to the DuoNeb and Bumex will improve her respiratory status and respiratory acidosis. I had a long discussion with the family about the seriousness of the patient's presentation. After some time, the family did decide upon a DNR/DNI status. The patient is not to receive dialysis. Comfort measures were the primary concern. IV therapy, BiPAP was felt reasonable by the family. I did speak with case management, I did speak with the on-call hospitalist. In short, the patient is quite ill, she may not survive this hospitalization. Prior/Outside records/notes reviewed: Today's EMS notes describing her presentation and transport to this hospital. ECG per my interpretation: Indication was weakness. The ECG shows a sinus rhythm with a first-degree AV block. There is some baseline artifact. There is no obvious ST elevation, no PVCs. The QTc is 514. Continuous Cardiac Monitoring per my interpretation: An order was placed for continuous cardiac monitoring. The monitor shows a rate of 70 with sinus rhythm with a first AV block. Imaging/x-ray results per my interpretation: Chest x-ray shows cardiomegaly and CHF. No focal pneumonia. Chronic Medical/Social conditions affecting care: Obesity, recent hospitalization for sepsis. Care/Management discussed with: Case management, the on-call hospitalist. Level of care consideration(s): After review of the information above and other included data: --I believe the patient requires escalation of care to admission Critical Care Note: I have personally spent 55 minutes of critical care time in the direct management of this patient. This includes bedside care, interpretation of diagnostic studies, and testing, discussion with consultants, patient, and family members, and other required patient management activities. This 55 minutes is in excess of all separately billable procedures. DISPOSITION: Admission Past Med/Surg History Problem List (Updated 12/08/24 @ 16:38 by Tano Duffy MD) Acute UTI (Acute) Anemia (Acute) ARF (acute renal failure) (Acute) CHF (congestive heart failure) (Acute) Acute hyperkalemia (Acute) Respiratory acidosis (Acute) Altered mental status (Acute) Encounter for pre-operative examination Acute metabolic encephalopathy Acute encephalopathy PAF (paroxysmal atrial fibrillation) Morbid obesity with BMI of 60.0-69.9, adult CONSTANCE (obstructive sleep apnea) CPAP Acute on chronic respiratory failure with hypoxia and hypercapnia Acute on chronic kidney failure (Acute) Acute respiratory distress (Acute) Cellulitis of leg, right (Acute) Severe sepsis (Acute) PETE (acute kidney injury) Chronic respiratory failure with hypoxia Cellulitis Sepsis Chronic diastolic CHF (congestive heart failure) Submental mass Abscess of neck LAD (lymphadenopathy), submental Class 3 obesity with alveolar hypoventilation and body mass index (BMI) of 50.0 to 59.9 in adult Class 3 severe obesity due to excess calories with body mass index (BMI) of 40.0 to 44.9 in adult Umbilical hernia Tubular adenoma of colon Controlled type 2 diabetes mellitus with kidney complication, with long-term current use of insulin Bright red blood per rectum Constipation Hemangioma Epistaxis Personal history of diabetic foot ulcer Left knee DJD Stage 3 chronic kidney disease Chronic venous insufficiency (Chronic) Vitamin D deficiency Ambulatory dysfunction Hyperkalemia (Acute) Psoriasis Obesity hypoventilation syndrome Hypertrophic toenail Callus of foot Periorbital hematoma of both eyes Airway obstruction, anatomic Respiratory insufficiency following shock, trauma, or surgery Dermatitis Tinea cruris Tinea corporis Folliculitis Atrial flutter with rapid ventricular response Olecranon bursitis, right elbow Chronic anticoagulation (Chronic) Neuropathy (Chronic) Diabetic induced Peripheral arterial disease Bilateral lower extremity edema (Chronic) Gastric ulcer Venous insufficiency of both lower extremities (Chronic) PAD (peripheral artery disease) (Acute) Obesity (Chronic) COPD (chronic obstructive pulmonary disease) (Chronic) Dyslipidemia (Chronic) H/O malignant neoplasm of female breast (Chronic) Stage 3b chronic kidney disease Anemia of chronic disease Iron deficiency anemia Secondary hyperparathyroidism of renal origin Spinal stenosis of lumbar region (Chronic) Hypothyroidism Medical History Type 2 diabetes mellitus with renal complication Hypertension On home oxygen therapy uses 2L O2 at night w/cpap and in the daytime prn Diabetic neuropathy Hx of gastric ulcer Depression Chronic pain of left knee DJD Osteoarthritis Degenerative disc disease Diabetes mellitus, type 2 On anticoagulant therapy coumadin daily Hyperlipidemia Atrial flutter hx of Chronic obstructive pulmonary disease inhaler prn Obesity Diastolic CHF Atrial fibrillation Paroxysmal. Cardioversion x 2. follows with Dr. Rapp---on coumadin. Surgical History Family history of reaction to anesthesia FATHER>NAUSEA AND DIZZINESS History of nasal cauterization History of colonoscopy with polypectomy Nausea and vomiting after administration of anesthetic agent with "extreme vertigo" History of total hysterectomy with bilateral salpingo-oophorectomy (BSO) History of lumpectomy of right breast benign History of carpal tunnel surgery of left wrist History of tooth extraction most teeth removed--full upper denture/partial lower History of cardioversion x2, [facility]; most recent 2019 Family History Sister Family history of reaction to anesthesia nausea/vomiting Hypothyroidism Father Family history of reaction to anesthesia nausea/vomiting Family hx colonic polyps Hypertension Mother Diabetes Hypertension Denies family history of Ovarian cancer Prostate cancer Myocardial infarction Breast cancer Colorectal cancer Social History Smoking Status: Former smoker Tobacco Type: Cigarettes Age Started Using Tobacco: 20; Age Quit Using Tobacco: 60; packs per day: 1; Second Hand Exposure: Yes; Do You Dip or Chew Tobacco: No; Hx Alcohol Use: No Hx Substance Use: No Preferred Language: Spanish Communication Ability: Effective Visual Impairment: Limited Hearing Ability: Hard of Hearing Rn Critical Care Required: No Beliefs That Will Affect Care: None marital status: Single Current Living Situation: Parent and Family Current Living Situation Comment: BROTHER AND FATHER current occupational status: retired How many Children do You have: 0 Feels Safe at Home: Yes Diet: regular during the past year weight has: remained stable Dental Care, Regularly: Yes Physical Activity Frequency: Does not Exercise Seatbelt Use: always Sunscreen Use: No Assistive Devices: CPAP, Walker and Wheelchair Allergies Allergies Allergy/AdvReac Type Severity Reaction Status Date / Time amoxicillin Allergy Severe SOB, RASH Verified 10/30/24 15:10 Penicillins Allergy Severe SOB, RASH Verified 10/30/24 15:10 clarithromycin Allergy Intermediate "feels Verified 10/30/24 15:10 like flying high" clindamycin Allergy Intermediate "feels Verified 10/30/24 15:10 like flying high" fluconazole Allergy Intermediate "feels Verified 10/30/24 15:10 like flying high" sulfamethoxazole Allergy Intermediate "feels Verified 10/30/24 15:10 like flying high" trimethoprim Allergy Intermediate "feels Verified 10/30/24 15:10 like flying high" Bactrim Allergy Unknown UNKNOWN Verified 02/21/18 10:32 empagliflozin AdvReac Severe Verified 10/30/24 15:10 [From Jardiance] codeine AdvReac Mild ITCHING, Verified 10/30/24 15:10 NAUSEA Home Meds Home Medications Medication Instructions Recorded Confirmed meclizine 12.5 mg tablet 12.5 mg PO TID PRN Dizziness 10 09/26/16 12/08/24 days #30 tabs enowupnc-zctu-wkef 8 mg-folic 400 1 tab PO QAM 12/27/22 12/08/24 mcg-K 50 mcg-lutein 300 mcg tablet (Centrum Silver Women) vostvpys-ebj-jptkyn 5 mg-zeaxanth 1 cap PO DAILY 02/20/24 12/08/24 1 mg-bilberry 7.5 mg-herbal capsule (Macular Health Formula) emujwogedv-[id number] See Rx Instructions topical 09/16/24 12/08/24 vera-vits A,D,and E 20 %-3 % .COMPLEX PRN VAGINAL SX topical cream (Vagisil) miconazole nitrate 2 % vaginal 1 applic vaginal UD PRN DIRECTED 09/16/24 12/08/24 cream (Monistat 7) tacrolimus 0.1 % topical ointment 1 applic topical BID 09/16/24 12/08/24 Lactobacillus acidophilus 10 10,000 mmu cells PO DAILY 11/22/24 12/08/24 billion cell capsule (Probiotic) apremilast 30 mg tablet (Otezla) 30 mg PO QAM 11/22/24 12/08/24 calcitriol 0.25 mcg capsule 0.25 mcg PO 3XWK 11/22/24 12/08/24 clotrimazole-betamethasone 1 1 applic topical UD PRN DIRECTED 11/22/24 12/08/24 %-0.05 % topical cream ezetimibe 10 mg tablet 10 mg PO QAM 11/22/24 12/08/24 Previous Rx's Medication Instructions Recorded Wheelchair (Manual) (Manual #1 ea 08/04/21 Wheelchair) pen needle, diabetic 31 gauge x #200 ea 10/09/22 3/16" (BD Ultra-Fine Mini Pen Needle) Oxygen Home #1 ea 01/19/23 buspirone 5 mg tablet 5 mg PO TID PRN anxiety #60 tabs 06/28/23 nystatin 100,000 unit/gram topical 1 applic topical BID PRN itching 01/11/24 powder #60 grams metoprolol tartrate 25 mg tablet 25 mg PO BID 90 days #180 tabs 02/12/24 betamethasone dipropionate 0.05 % 1 applic topical BID #45 grams 03/31/24 topical ointment insulin syringe-needle U-100 1 mL #200 ea 06/10/24 31 gauge x 5/16" (BD Insulin Syringe Ultra-Fine) blood sugar diagnostic (OneTouch #200 ea 06/14/24 Ultra Test strips) flash glucose scanning reader #1 ea 06/14/24 (FreeStyle Cristiana 2 [place]) triamcinolone acetonide 0.1 % 1 applic topical .COMPLEX #30 grams 08/20/24 topical ointment albuterol sulfate 90 mcg/actuation 2 puff inhalation Q6H PRN 10/28/24 aerosol inhaler Shortness Of Breath #18 grams atorvastatin 40 mg tablet (Lipitor) 40 mg PO QAM #90 tabs 11/19/24 BiPap Machine #1 ea 12/05/24 Oxygen Home #1 ea 12/05/24 acetaminophen 500 mg capsule 1,000 mg (2 x 500 mg) PO Q6H PRN 12/05/24 Pain #0 caps amiodarone 100 mg tablet 200 mg (2 x 100 mg) PO QAM #90 tabs 12/05/24 bumetanide 2 mg tablet 2 mg PO BID #180 tabs 12/05/24 ferrous sulfate 325 mg (65 mg 325 mg PO DAILY #0 tabs 12/05/24 iron) tablet insulin glargine 100 unit/mL (3 20 unit (0.2 mL) subcut BID #30 mL 12/05/24 mL) subcutaneous pen (Basaglar KwikPen U-100 Insulin) insulin lispro 100 unit/mL See Rx Instructions .Route 12/05/24 subcutaneous solution (Admelog U-) .COMPLEX #10 mL levothyroxine 50 mcg tablet 50 mcg PO UD #0 tabs 12/05/24 warfarin 5 mg tablet (Jantoven) 2.5 mg (1/2 x 5 mg) PO DAILY #0 12/05/24 tabs Results & Data (ED) Vital Signs Vital Signs - 24 hr 12/08/24 10:19 12/08/24 10:22 12/08/24 10:22 Temperature 36.5 C Temperature Source Oral Pulse Rate 70 70 Pulse Rate [Apical] Pulse Rate from SpO2 Sensor Pulse Rhythm Regular Pulse Rhythm [Apical] Pulse Strength Normal Pulse Strength [Apical] Respiratory Rate 26 H Respiratory Effort / Characteristics Non-Labored Spontaneous Respiratory Depth Normal Respiratory Pattern Regular Blood Pressure 128/87 Blood Pressure [Left Arm] Blood Pressure Mean 100 Blood Pressure Mean [Left Arm] Blood Pressure Position Semi-fowlers Blood Pressure Position [Left Arm] Pulse Oximetry 99 99 Oxygen Delivery Method Nasal Cannula Nasal Cannula Oxygen Flow Rate 6 6 Sepsis Recent Fever Within 48 Hours No Sepsis New/Unexplained Change in Mental Status Yes Sepsis Action Taken by Nursing Physician Notified 12/08/24 10:22 12/08/24 10:22 12/08/24 11:33 Temperature Temperature Source Pulse Rate 70 Pulse Rate [Apical] 70 62 Pulse Rate from SpO2 Sensor Pulse Rhythm Regular Pulse Rhythm [Apical] Regular Regular Pulse Strength Pulse Strength [Apical] Normal Normal Respiratory Rate 26 H 26 H 25 H Respiratory Effort / Characteristics Spontaneous Labored Non-Labored Spontaneous Respiratory Depth Normal Normal Respiratory Pattern Regular Regular Blood Pressure Blood Pressure [Left Arm] 128/87 129/51 L Blood Pressure Mean Blood Pressure Mean [Left Arm] 100 77 Blood Pressure Position Blood Pressure Position [Left Arm] Semi-fowlers Pulse Oximetry 99 99 90 Oxygen Delivery Method Nasal Cannula Nasal Cannula BiPAP Oxygen Flow Rate 6 6 Sepsis Recent Fever Within 48 Hours Sepsis New/Unexplained Change in Mental Status Sepsis Action Taken by Nursing 12/08/24 11:33 12/08/24 11:45 12/08/24 12:09 Temperature Temperature Source Pulse Rate 63 66 63 Pulse Rate [Apical] Pulse Rate from SpO2 Sensor 63 Pulse Rhythm Pulse Rhythm [Apical] Pulse Strength Pulse Strength [Apical] Respiratory Rate 22 25 H 19 Respiratory Effort / Characteristics Respiratory Depth Respiratory Pattern Blood Pressure 129/51 L 124/56 L 111/55 L Blood Pressure [Left Arm] Blood Pressure Mean 78 86 73 Blood Pressure Mean [Left Arm] Blood Pressure Position Blood Pressure Position [Left Arm] Pulse Oximetry 85 L 87 L 96 Oxygen Delivery Method Oxygen Flow Rate Sepsis Recent Fever Within 48 Hours Sepsis New/Unexplained Change in Mental Status Sepsis Action Taken by Nursing 12/08/24 12:45 12/08/24 13:01 12/08/24 13:15 Temperature Temperature Source Pulse Rate 64 65 Pulse Rate [Apical] Pulse Rate from SpO2 Sensor 65 Pulse Rhythm Pulse Rhythm [Apical] Pulse Strength Pulse Strength [Apical] Respiratory Rate 20 27 H Respiratory Effort / Characteristics Respiratory Depth Respiratory Pattern Blood Pressure 105/84 132/64 147/67 H Blood Pressure [Left Arm] Blood Pressure Mean 91 104 93 Blood Pressure Mean [Left Arm] Blood Pressure Position Blood Pressure Position [Left Arm] Pulse Oximetry 97 99 Oxygen Delivery Method Oxygen Flow Rate Sepsis Recent Fever Within 48 Hours Sepsis New/Unexplained Change in Mental Status Sepsis Action Taken by Nursing 12/08/24 13:21 12/08/24 13:31 12/08/24 13:42 Temperature Temperature Source Pulse Rate 66 60 Pulse Rate [Apical] Pulse Rate from SpO2 Sensor Pulse Rhythm Pulse Rhythm [Apical] Pulse Strength Pulse Strength [Apical] Respiratory Rate 29 H 20 Respiratory Effort / Characteristics Respiratory Depth Respiratory Pattern Blood Pressure 130/50 L Blood Pressure [Left Arm] Blood Pressure Mean 78 Blood Pressure Mean [Left Arm] Blood Pressure Position Blood Pressure Position [Left Arm] Pulse Oximetry Oxygen Delivery Method Oxygen Flow Rate Sepsis Recent Fever Within 48 Hours Sepsis New/Unexplained Change in Mental Status Sepsis Action Taken by Nursing 12/08/24 13:45 12/08/24 13:51 12/08/24 14:00 Temperature Temperature Source Pulse Rate 61 61 Pulse Rate [Apical] Pulse Rate from SpO2 Sensor 62 62 Pulse Rhythm Pulse Rhythm [Apical] Pulse Strength Pulse Strength [Apical] Respiratory Rate 20 22 Respiratory Effort / Characteristics Respiratory Depth Respiratory Pattern Blood Pressure 114/54 L Blood Pressure [Left Arm] Blood Pressure Mean 76 Blood Pressure Mean [Left Arm] Blood Pressure Position Blood Pressure Position [Left Arm] Pulse Oximetry 95 97 Oxygen Delivery Method Oxygen Flow Rate Sepsis Recent Fever Within 48 Hours Sepsis New/Unexplained Change in Mental Status Sepsis Action Taken by Nursing 12/08/24 14:00 12/08/24 14:15 12/08/24 14:19 Temperature Temperature Source Pulse Rate 67 69 Pulse Rate [Apical] Pulse Rate from SpO2 Sensor Pulse Rhythm Pulse Rhythm [Apical] Pulse Strength Pulse Strength [Apical] Respiratory Rate 24 Respiratory Effort / Characteristics Respiratory Depth Respiratory Pattern Blood Pressure 120/49 L 126/78 Blood Pressure [Left Arm] Blood Pressure Mean 81 93 Blood Pressure Mean [Left Arm] Blood Pressure Position Blood Pressure Position [Left Arm] Pulse Oximetry 97 Oxygen Delivery Method Oxygen Flow Rate Sepsis Recent Fever Within 48 Hours Sepsis New/Unexplained Change in Mental Status Sepsis Action Taken by Assisted Medications Current Medication List: was personally reviewed by me Laboratory Data Attestation: I reviewed the patient's lab results. 12/08/24 10:34 12/08/24 10:34 Lab Results 12/08/24 12/08/24 12/08/24 Range/Units 10:34 10:39 11:50 WBC 8.80 (4.8-10.8) K/ul RBC 2.87 L (4.20-5.40) M/uL Hgb 8.3 L (12.0-16.0) g/dl Hct 30.7 L (37.0-47.0) % MCV 107.0 H (80.0-100.0) fL MCH 28.9 (25.0-34.0) pg MCHC 27.0 L (32.0-36.0) g/dL RDW Std Deviation 68.3 H (36.4-46.3) fL RDW Coeff of Shannan 17.3 H (11.5-14.5) % Plt Count 381 (130-400) K/uL MPV 10.4 (9.4-12.4) fL Immature Gran % (Auto) 3.2 % Neut % (Auto) 76.3 % Lymph % (Auto) 8.8 % [place]borne % (Auto) 11.3 % Eos % (Auto) 0.1 % Baso % (Auto) 0.3 % Neut # (Auto) 6.72 H (1.40-6.50) K/uL Lymph # (Auto) 0.77 L (1.20-3.40) K/uL [place] # (Auto) 0.99 H (0.11-0.59) K/uL Eos # (Auto) 0.01 (0.00-0.50) K/uL Baso # (Auto) 0.03 (0.00-0.20) K/uL Immature Gran # (Auto) 0.28 H (0.01-0.20) K/uL Absolute Nucleated RBC 0.17 H (0.00-0.12) K/uL Nucleated RBC % (auto) 1.9 % Polychromasia 1+ Basophilic Stippling 1+ Macrocytosis Present PT 26.6 H (9.0-12.0) Seconds INR 2.7 H (0.9-1.1) APTT 41 H (21-31) Seconds PTT Ratio 1.5 VBG pH 7.10 L (7.36-7.41) VBG pCO2 119 H (38-50) mmHg VBG pO2 41 mmHg VBG HCO3 37 mmol/L VBG O2 Saturation 72.9 % VBG Base Excess 5.0 mEq/L Sodium 138 (136-145) mmol/L Potassium 6.9 H* (3.5-5.1) mmol/L Chloride 96 L (98-107) mmol/L Carbon Dioxide 38 H (21-32) mmol/L Anion Gap 4 (3-11) BUN 66 H (6-23) mg/dl Creatinine 4.11 H (0.6-1.2) mg/dl Est Cr Clr Drug Dosing 19.8 ml/min eGFR 11.18 BUN/Creatinine Ratio 16.1 (10-20) Glucose 216 H (70-99(Fasting)) mg/dl Lactate 1.4 (0.4-2.0) mmol/L Calcium 8.5 L (8.6-10.3) mg/dl Magnesium 2.4 (1.7-2.4) mg/dl Total Bilirubin 0.4 (0.2-1.0) mg/dl AST 13 (13-39) U/L ALT 9 (7-52) U/L Alkaline Phosphatase 78 (34-104) U/L Ammonia 29.0 (18-72) umol/L Troponin I High Sens 16.3 H (0-14) pg/ml B-Natriuretic Peptide (0-100) pg/ml Total Protein 8.2 (6.0-8.3) gm/dl Albumin 3.2 L (3.4-5.0) gm/dl Globulin 5.0 H (2.5-4.0) gm/dl Albumin/Globulin Ratio 0.6 L (0.9-2) Procalcitonin 0.23 (0-0.5) ng/ml TSH 4.695 H (0.300-4.500) uIu/ml Free T4 0.56 L (0.61-1.60) ng/dl Urine Color Dark Yellow Urine Appearance Turbid A (Clear) Urine pH 5.0 (4.5-7.5) Ur Specific [place] 1.017 (1.000-1.030) Urine Protein 1+ H (Negative) Urine Glucose (UA) Negative (Negative) Urine Ketones Trace H (Negative) Urine Blood 3+ H (Negative) Urine Nitrite Negative (Negative) Urine Bilirubin 1+ H (Negative) Urine Urobilinogen Negative (Negative) Ur Leukocyte Esterase 2+ H (Negative) Urine WBC (Auto) >50 H (0-5) /hpf Urine RBC (Auto) >20 H (0-2) /hpf U Hyaline Cast (Auto) >20 H (0-2) /lpf U Epithel Cells (Auto) 6-10 H (0-2) /hpf Urine Bacteria (Auto) None Seen (None Seen) Hyaline Casts Present A (None Presnt) /lpf Urine Yeast Present A (None Prsent) 12/08/24 Range/Units 13:07 WBC (4.8-10.8) K/ul RBC (4.20-5.40) M/uL Hgb (12.0-16.0) g/dl Hct (37.0-47.0) % MCV (80.0-100.0) fL MCH (25.0-34.0) pg MCHC (32.0-36.0) g/dL RDW Std Deviation (36.4-46.3) fL RDW Coeff of Shannan (11.5-14.5) % Plt Count (130-400) K/uL MPV (9.4-12.4) fL Immature Gran % (Auto) % Neut % (Auto) % Lymph % (Auto) % [place] % (Auto) % Eos % (Auto) % Baso % (Auto) % Neut # (Auto) (1.40-6.50) K/uL Lymph # (Auto) (1.20-3.40) K/uL [place] # (Auto) (0.11-0.59) K/uL Eos # (Auto) (0.00-0.50) K/uL Baso # (Auto) (0.00-0.20) K/uL Immature Gran # (Auto) (0.01-0.20) K/uL Absolute Nucleated RBC (0.00-0.12) K/uL Nucleated RBC % (auto) % Polychromasia Basophilic Stippling Macrocytosis PT (9.0-12.0) Seconds INR (0.9-1.1) APTT (21-31) Seconds PTT Ratio VBG pH (7.36-7.41) VBG pCO2 (38-50) mmHg VBG pO2 mmHg VBG HCO3 mmol/L VBG O2 Saturation % VBG Base Excess mEq/L Sodium (136-145) mmol/L Potassium (3.5-5.1) mmol/L Chloride (98-107) mmol/L Carbon Dioxide (21-32) mmol/L Anion Gap (3-11) BUN (6-23) mg/dl Creatinine (0.6-1.2) mg/dl Est Cr Clr Drug Dosing ml/min eGFR BUN/Creatinine Ratio (10-20) Glucose (70-99(Fasting)) mg/dl Lactate (0.4-2.0) mmol/L Calcium (8.6-10.3) mg/dl Magnesium (1.7-2.4) mg/dl Total Bilirubin (0.2-1.0) mg/dl AST (13-39) U/L ALT (7-52) U/L Alkaline Phosphatase (34-104) U/L Ammonia (18-72) umol/L Troponin I High Sens (0-14) pg/ml B-Natriuretic Peptide 578 H (0-100) pg/ml Total Protein (6.0-8.3) gm/dl Albumin (3.4-5.0) gm/dl Globulin (2.5-4.0) gm/dl Albumin/Globulin Ratio (0.9-2) Procalcitonin (0-0.5) ng/ml TSH (0.300-4.500) uIu/ml Free T4 (0.61-1.60) ng/dl Urine Color Urine Appearance (Clear) Urine pH (4.5-7.5) Ur Specific [place] (1.000-1.030) Urine Protein (Negative) Urine Glucose (UA) (Negative) Urine Ketones (Negative) Urine Blood (Negative) Urine Nitrite (Negative) Urine Bilirubin (Negative) Urine Urobilinogen (Negative) Ur Leukocyte Esterase (Negative) Urine WBC (Auto) (0-5) /hpf Urine RBC (Auto) (0-2) /hpf U Hyaline Cast (Auto) (0-2) /lpf U Epithel Cells (Auto) (0-2) /hpf Urine Bacteria (Auto) (None Seen) Hyaline Casts (None Presnt) /lpf Urine Yeast (None Prsent) Administered Medications Discontinued Medications Albuterol (Albut/Ipratrop 3mg/0.5mg Neb 3 Ml Vial) 3 ml NEB NOW STA; Protocol Stop: 12/08/24 11:38 Last Admin: 12/08/24 14:57 Dose: Not Given Documented By: JANETT Albuterol (Albut/Ipratrop 3mg/0.5mg Neb 3 Ml Vial) Confirm Administered Dose 9 ml .ROUTE .STK-MED ONE Stop: 12/08/24 11:59 Last Admin: 12/08/24 12:15 Dose: Not Given Documented By: KEA Albuterol (Albut/Ipratrop 3mg/0.5mg Neb 3 Ml Vial) 12 ml NEB ONE ONE; Protocol Stop: 12/08/24 12:00 Last Admin: 12/08/24 12:14 Dose: 12 ml Documented By: KAE Dextrose (Dextrose 50% 50 Ml Syringe) 50 ml IV NOW STA Stop: 12/08/24 14:24 Last Admin: 12/08/24 14:57 Dose: 50 ml Documented By: JANETT Bumetanide 2 mg/ Syringe 8 mls @ 4 mls/min IV ONE ONE Stop: 12/08/24 11:38 Last Admin: 12/08/24 12:57 Dose: 4 mls/min Documented By: JANETT Calcium Gluconate () 1,000 mg in 60 mls @ 240 mls/hr IV NOW STA Stop: 12/08/24 12:01 Last Admin: 12/08/24 12:08 Dose: 240 mls/hr Documented By: JANETT Cefepime HCl (Maxipime 2000mg) 2,000 mg in 20 mls @ 5 mls/min IV NOW STA Stop: 12/08/24 12:54 Last Admin: 12/08/24 13:08 Dose: 5 mls/min Documented By: JANETT Calcium Gluconate () 1,000 mg in 60 mls @ 240 mls/hr IV NOW STA Stop: 12/08/24 14:36 Last Admin: 12/08/24 15:11 Dose: 240 mls/hr Documented By: JANETT Insulin Human Regular 10 units (/ Syringe) 10 mls @ 3 mls/sec IV NOW STA Stop: 12/08/24 14:26 Last Admin: 12/08/24 15:03 Dose: 3 mls/sec Documented By: JANETT Co-signed By: KAILYN Sodium Bicarbonate (Sodium Bicarb 8.4% Inj 50 Meq/50 Ml Syr) 50 meq IV NOW STA Stop: 12/08/24 11:48 Last Admin: 12/08/24 12:05 Dose: 50 meq Documented By: JANETT Imaging Data Radiologist's Impression: Chest X-Ray 12/08/24 10:12 XR chest 1V portable CLINICAL HISTORY: weakness COMPARISON STUDY: Chest radiograph November 22, 2024. FINDINGS: There is no pneumothorax. Small bilateral pleural fusions are present. Cardiomegaly is again noted. Mediastinal contours are stable. Interstitial thickening and bilateral perihilar opacities have progressed since prior exam. IMPRESSION: 1. Progression of interstitial and alveolar pulmonary edema since prior exam. 2. Cardiomegaly. 3. Small bilateral pleural effusions. ACT 112: Negative or not required by law. Electronically signed by: Branden Hassan M.D. 12/08/2024 11:[address] 12/08/24 10:12 CT OF THE HEAD WITHOUT CONTRAST CLINICAL HISTORY: Altered mental status. COMPARISON STUDY: MRI of the brain July 14, 2014. Head CT June 04, 2020. CT DOSE: 1250.21 mGy.cm TECHNIQUE: Helical axial images of the head were obtained without IV contrast. Automated exposure control was utilized for the study. A dose lowering technique was utilized adhering to the principles of ALARA. FINDINGS: This study is mildly compromised by motion artifact. No acute intracranial hemorrhage, midline shift or mass effect is present. The ventricular system is unremarkable. The basal cisterns are patent. No extra- axial collections are present. There are no findings to suggest acute dural sinus thrombosis or acute territorial infarct. No significant calvarial abnormalities are present. Visualized portions of the sinuses and mastoid air cells are clear. IMPRESSION: No acute intracranial findings. Mild motion artifact. ACT 112: Negative or not required by law. Electronically signed by: Branden Hassan M.D. 12/08/2024 12:51 PM Discharge Plan Visit Data Chief Complaint: Lethargic Stated Complaint: LETHARGIC ED Provider: Tano Duffy Discharge Problem: Altered mental status, Respiratory acidosis, Acute hyperkalemia, CHF (congestive heart failure), ARF (acute renal failure), Anemia, Acute UTI Patient Disposition: Admitted As Inpatient Condition: Serious Discharge Instructions Interventions: ED Discharge Assessment Last Done: 12/08/24 15:39 Discharge Problem: Altered mental status Qualifiers: Altered mental status type: somnolence Qualified Code(s): R40.0 - Somnolence CHF (congestive heart failure) Qualifiers: Heart failure type: unspecified Heart failure chronicity: acute on chronic Q ualified Code(s): I50.9 - Heart failure, unspecified ARF (acute renal failure) Qualifiers: Acute renal failure type: unspecified Qualified Code(s): N17.9 - Acute kidney failure, unspecified Anemia Qualifiers: Anemia type: unspecified type Qualified Code(s): D64.9 - Anemia, unspecified
[2024-12-08 10:54] LABS: HCO3 VBG 37 mmol/L; Oxygen Saturation VBG 72.9 %; PCO2 VBG 119 mmHg (38-50); PO2 VBG 41 mmHg
--- NOTE | 2024-12-08 11:11 | XRay Report ---
XR chest 1V portable CLINICAL HISTORY: weakness COMPARISON STUDY: Chest radiograph November 22, 2024. FINDINGS: There is no pneumothorax. Small bilateral pleural fusions are present. Cardiomegaly is agai n noted. Mediastinal contours are stable. Interstitial thickening and bilateral perihilar opacities h ave progressed since prior exam. IMPRESSION: 1. Progression of interstitial and alveolar pulmonary edema since prior exam. 2. Cardiomegaly. 3. Small bilateral pleural effusions. ACT 112: Negative or not required by law. Electronically signed by: Branden Hassan M.D. 12/08/2024 11:10 AM
[2024-12-08 11:28] LABS: INR 2.7 (0.9-1.1); Partial Thromboplastin Ratio 1.5; Partial Thromboplastin Time 41 Seconds (21-31); Prothrombin Time 26.6 Seconds (9.0-12.0)
[2024-12-08 11:48] LABS: Albumin Globulin Ratio 0.6 (0.9-2); Albumin Level 3.2 gm/dl (3.4-5.0); BUN Creatinine Ratio 16.1 (10-20); Bilirubin,Total 0.4 mg/dl (0.2-1.0); Calcium 8.5 mg/dl (8.6-10.3); Creatinine Clr Calc Pharmacy 19.8 ml/min; Magnesium 2.4 mg/dl (1.7-2.4); Potassium 6.9 mmol/L (3.5-5.1); Total Protein 8.2 gm/dl (6.0-8.3)
[2024-12-08 11:55] LABS: Troponin I High Sensitivity 16.3 pg/ml (0-14)
[2024-12-08 11:59] LABS: Thyroid Stimulating Hormone 4.695 uIu/ml (0.300-4.500)
[2024-12-08] MEDS: SODIUM BICARB 8.4% INJ 50 MEQ/50 ML SYR IV STA (12:05)
[2024-12-08] MEDS: CALCIUM GLUCONATE 1,000 MG/60 ML BAG IV STA ×2 (12:08→15:11)
[2024-12-08] MEDS: ALBUT/IPRATROP 3MG/0.5MG NEB 3 ML VIAL NEB ONE (12:14)
[2024-12-08] MEDS: ALBUT/IPRATROP 3MG/0.5MG NEB 3 ML VIAL ONE (12:15)
[2024-12-08 12:18] LABS: Appearance Urine Turbid (Clear); Bacteria Urine Automated None Seen (None Seen); Bilirubin Urine 1+ (Negative); Blood Urine 3+ (Negative); Cast Urine Automated >20 /lpf (0-2); Color Urine Dark Yellow; Glucose Urine UA Negative (Negative); Hyaline Casts Urine Present /lpf (None Presnt); Ketones Urine Trace (Negative); Leukocyte Esterase Urine 2+ (Negative); Nitrite Urine Negative (Negative); Protein Urine 1+ (Negative); RBC Urine Automated >20 /hpf (0-2); Specific Gravity Urine 1.017 (1.000-1.030); Urobilinogen Urine Negative (Negative); WBC Urine Automated >50 /hpf (0-5)
[2024-12-08 12:35] LABS: T4 Free Thyroxine 0.56 ng/dl (0.61-1.60)
[2024-12-08 12:51] LABS: Hematocrit (blood only) 30.7 % (37.0-47.0); Hemoglobin 8.3 g/dl (12.0-16.0); Mean Corpuscular Hemoglobin 28.9 pg (25.0-34.0); Mean Platelet Volume 10.4 fL (9.4-12.4); Nucleated RBC # (auto) 0.17 K/uL (0.00-0.12); Nucleated RBC % (auto) 1.9 %; Platelet Count 381 K/uL (130-400); RDW Coefficient of Variation 17.3 % (11.5-14.5); RDW Standard Deviation 68.3 fL (36.4-46.3); Red Blood Count 2.87 M/uL (4.20-5.40)
--- NOTE | 2024-12-08 12:52 | CT Scan Report ---
CT OF THE HEAD WITHOUT CONTRAST CLINICAL HISTORY: Altered mental status. COMPARISON STUDY: MRI of the brain July 14, 2014. Head CT June 04, 2020. CT DOSE: 1250.21 mGy.cm TECHNIQUE: Helical axial images of the head were obtained without IV contrast. Automated exposure con trol was utilized for the study. A dose lowering technique was utilized adhering to the principles o f ALARA. FINDINGS: This study is mildly compromised by motion artifact. No acute intracranial hemorrhage, midl ine shift or mass effect is present. The ventricular system is unremarkable. The basal cisterns are p atent. No extra-axial collections are present. There are no findings to suggest acute dural sinus thr ombosis or acute territorial infarct. No significant calvarial abnormalities are present. Visualized portions of the sinuses and mastoid air cells are clear. IMPRESSION: No acute intracranial findings. Mild motion artifact. ACT 112: Negative or not required by law. Electronically signed by: Branden Hassan M.D. 12/08/2024 12:51 PM
[2024-12-08] MEDS: BUMETANIDE 2 MG in SYRINGE 0 ML IV ONE (12:57)
[2024-12-08] MEDS: CEFEPIME 2000MG 2,000 MG/20 ML SYR IV STA (13:08)
--- NOTE | 2024-12-08 13:08 | Electrocardiogram Report ---
Test Reason : Blood Pressure : */* mmHG Vent. Rate : 70 BPM Atrial Rate : 70 BPM P-R Int : 250 ms QRS Dur : 126 ms QT Int : 476 ms P-R-T Axes : 86 86 31 degrees QTcB Int : 514 ms Sinus rhythm with 1st degree A-V block Non-specific intra-ventricular conduction block Abnormal ECG When compared with ECG of 05-Dec-2024 07:54, AR interval has increased QRS duration has increased Confirmed by Tyson Gallegos ([id number]) on 12/08/2024 1:08:30 PM Referred By: REFERRED SELF Confirmed By: Tyson Gallegos
--- NOTE | 2024-12-08 13:11 | History & Physical Report ---
Date of Service December 08, 2024 Assessment & Plan (1) Acute on chronic respiratory failure with hypoxia and hypercapnia: (2) Acute on chronic kidney failure: (3) Acute respiratory distress: (4) PETE (acute kidney injury): (5) Hyperkalemia: (6) Hypothyroidism: Plan This is a 69 year old female with past medical history of chronic respiratory failure, CONSTANCE, CKD, CHF, Atrial flutter, PAD, anemia, TIA who presented to the ED on 12/08 from [facility] for reports of being lethargic from family. Patient recently hospitalized for cellulitis and was discharged on 12/05 to [facility]. She was treated with daptomycin, cefepime, and flagyl for cellulitis. Goals of care discussion took place by palliative - patient does not wish to be started on hemodialysis, no escalation of care. Patient does wish to continue current course but no ICU level of care. Another daughter coming in from out of town. Patient may transition to JUTE BAG SEWER status in the upcoming days. Family does not want to prolong suffering. BiPAP is okay to continue along w/ IV Fluids/medications to stabilize. Patient is DNR/DNI, no cardioversion and no pressor support. #acute on chronic respiratory failure Etiology secondary to multiple comorbidities including acute on chronic CHF, CONSTANCE, OHS CXR: progression of interstitial and alveolar pulmonary edema since previous exam. Cardiomegaly. small b/l pleural effusions. Recent Echo 11/25/24 - LVEF 65-70%. moderate LVH. mild mitral regurg. moderate tricuspid regurg. IVC mod. dilated. VBG 7.10/pCO2 119/pO2 41/HCO3 37 CBC w/o leukocytosis, BNP 578, Trop 16.3 s/p 2mg IV Bumex given in ED, continue upon admission [id number] Continue BiPAP Monitor I&Os daily weights #Cardiorenal Syndrome, CKD Secondary to volume overload, pleural effusions, PETE Creatinine 4.11 on admission, baseline ~1.7-1.8 Hyperkalemic w/ K of 6.9 Continue Lokelma, Calcium gluconate BMP q 4h - monitor K closely Aggressive diuresis as above. #UTI Urinalysis + for UTI in ED UC and BC both pending s/p IV Cefepime, continue upon admission pending culture and sensitivities Ng catheter in place #Hypothyroidism TSH elevated at 4.695 w/ low Free T4 Adjusted Levothyroxine to 75mcg daily. #A fib/flutter Recent cardioversion 12/05 Continue Metoprolol and Amiodarone #Type 2 Diabetes Most recent A1c 10/30/24 6.8% Sliding scale, adjust as necessary Pharmacy consulted to aide in management, appreciate recommendations. DVT prophylaxis: warfarin Code status: DNR/DNI Updated family at time of admission Discussed with Dr. Hickey and Palliative care at time of admission. History of Present Illness Primary Care Provider: Levi Denson DO This is a 69 year old female with past medical history of chronic respiratory failure, CONSTANCE, CKD, CHF, Atrial flutter, PAD, anemia, TIA who presented to the ED on 12/08 from [facility] for reports of being lethargic from famliy. Patient recently was admitted to the hospital from 11/22/2024 to 12/05/2024 for RLE cellulitis causing sepsis complicated by ATN/PETE with hypercapnic respiratory failure. She complicated a course of antibiotics including daptomycin, cefepime, and flagyl. She complicated her antibiotic course while inpatient. She was then discharged to [facility] for rehab. Met with the patient's family at bedside and had a goals of care discussion with them. Patient's family states that after being discharged from the hospital she was not given any of her medications at the rehab facility until 3 pm yesterday. She also was not given her CPAP to use at bedside. Patient was able to text family to make them aware of this but then got progressively lethargic which prompted her to return back to the ED. Patient's family states that she does not want to be intubated or kept alive on machines. Patient's family would be open to the idea of dialysis. Patient seen and examined at bedside. Patient on BiPAP at time of encounter, resting comfortably in bed. She denied any pain to palpation of abdomen. Denied any pain to palpation of lower extremity. She denied CP. Allergies Allergy/AdvReac Type Severity Reaction Status Date / Time amoxicillin Allergy Severe SOB, RASH Verified 10/30/24 15:10 Penicillins Allergy Severe SOB, RASH Verified 10/30/24 15:10 clarithromycin Allergy Intermediate "feels Verified 10/30/24 15:10 like flying high" clindamycin Allergy Intermediate "feels Verified 10/30/24 15:10 like flying high" fluconazole Allergy Intermediate "feels Verified 10/30/24 15:10 like flying high" sulfamethoxazole Allergy Intermediate "feels Verified 10/30/24 15:10 like flying high" trimethoprim Allergy Intermediate "feels Verified 10/30/24 15:10 like flying high" Bactrim Allergy Unknown UNKNOWN Verified 02/21/18 10:32 empagliflozin AdvReac Severe Verified 10/30/24 15:10 [From Jardiance] codeine AdvReac Mild ITCHING, Verified 10/30/24 15:10 NAUSEA Home Medications Medication Instructions Recorded Confirmed Type meclizine 12.5 mg tablet 12.5 mg PO TID PRN Dizziness 10 09/26/16 12/08/24 History days #30 tabs Wheelchair (Manual) (Manual #1 ea 08/04/21 11/22/24 Rx Wheelchair) pen needle, diabetic 31 gauge x #200 ea 10/09/22 11/22/24 Rx 3/16" (BD Ultra-Fine Mini Pen Needle) llqwwkey-wopb-cbsz 8 mg-folic 400 1 tab PO QAM 12/27/22 12/08/24 History mcg-K 50 mcg-lutein 300 mcg tablet (Centrum Silver Women) Oxygen Home #1 ea 01/19/23 11/22/24 Rx buspirone 5 mg tablet 5 mg PO TID PRN anxiety #60 tabs 06/28/23 12/08/24 Rx nystatin 100,000 unit/gram topical 1 applic topical BID PRN itching 01/11/24 12/08/24 Rx powder #60 grams metoprolol tartrate 25 mg tablet 25 mg PO BID 90 days #180 tabs 02/12/24 12/08/24 Rx cjsruoso-cgz-mhmfjs 5 mg-zeaxanth 1 cap PO DAILY 02/20/24 12/08/24 History 1 mg-bilberry 7.5 mg-herbal capsule (Macular Health Formula) betamethasone dipropionate 0.05 % 1 applic topical BID #45 grams 03/31/24 12/08/24 Rx topical ointment insulin syringe-needle U-100 1 mL #200 ea 06/10/24 11/22/24 Rx 31 gauge x 5/16" (BD Insulin Syringe Ultra-Fine) blood sugar diagnostic (OneTouch #200 ea 06/14/24 11/22/24 Rx Ultra Test strips) flash glucose scanning reader #1 ea 06/14/24 11/22/24 Rx (FreeStyle Cristiana 2 Ashley) triamcinolone acetonide 0.1 % 1 applic topical .COMPLEX #30 grams 08/20/24 12/08/24 Rx topical ointment pbvvdmiydn-eblpgmjsii-blwb See Rx Instructions topical 09/16/24 12/08/24 History vera-vits A,D,and E 20 %-3 % .COMPLEX PRN VAGINAL SX topical cream (Vagisil) miconazole nitrate 2 % vaginal 1 applic vaginal UD PRN DIRECTED 09/16/24 12/08/24 History cream (Monistat 7) tacrolimus 0.1 % topical ointment 1 applic topical BID 09/16/24 12/08/24 History albuterol sulfate 90 mcg/actuation 2 puff inhalation Q6H PRN 10/28/24 12/08/24 Rx aerosol inhaler Shortness Of Breath #18 grams atorvastatin 40 mg tablet (Lipitor) 40 mg PO QAM #90 tabs 11/19/24 12/08/24 Rx Lactobacillus acidophilus 10 10,000 mmu cells PO DAILY 11/22/24 12/08/24 History billion cell capsule (Probiotic) apremilast 30 mg tablet (Otezla) 30 mg PO QAM 11/22/24 12/08/24 History calcitriol 0.25 mcg capsule 0.25 mcg PO 3XWK 11/22/24 12/08/24 History clotrimazole-betamethasone 1 1 applic topical UD PRN DIRECTED 11/22/24 12/08/24 History %-0.05 % topical cream ezetimibe 10 mg tablet 10 mg PO QAM 11/22/24 12/08/24 History BiPap Machine #1 ea 12/05/24 Rx Oxygen Home #1 ea 12/05/24 Rx acetaminophen 500 mg capsule 1,000 mg (2 x 500 mg) PO Q6H PRN 12/05/24 12/08/24 Rx Pain #0 caps amiodarone 100 mg tablet 200 mg (2 x 100 mg) PO QAM #90 tabs 12/05/24 12/08/24 Rx bumetanide 2 mg tablet 2 mg PO BID #180 tabs 12/05/24 12/08/24 Rx ferrous sulfate 325 mg (65 mg 325 mg PO DAILY #0 tabs 12/05/24 12/08/24 Rx iron) tablet insulin glargine 100 unit/mL (3 20 unit (0.2 mL) subcut BID #30 mL 12/05/24 12/08/24 Rx mL) subcutaneous pen (Basaglar KwikPen U-100 Insulin) insulin lispro 100 unit/mL See Rx Instructions .Route 12/05/24 12/08/24 Rx subcutaneous solution (Admelog U-) .COMPLEX #10 mL levothyroxine 50 mcg tablet 50 mcg PO UD #0 tabs 12/05/24 12/08/24 Rx warfarin 5 mg tablet (Jantoven) 2.5 mg (1/2 x 5 mg) PO DAILY #0 12/05/24 12/08/24 Rx tabs Past Med/Surg History Problem List (Updated 12/05/24 @ 07:41 by Tyson Thurman MD) Encounter for pre-operative examination Acute metabolic encephalopathy Acute encephalopathy PAF (paroxysmal atrial fibrillation) Morbid obesity with BMI of 60.0-69.9, adult CONSTANCE (obstructive sleep apnea) CPAP Acute on chronic respiratory failure with hypoxia and hypercapnia Acute on chronic kidney failure (Acute) Acute respiratory distress (Acute) Cellulitis of leg, right (Acute) Severe sepsis (Acute) PETE (acute kidney injury) Chronic respiratory failure with hypoxia Cellulitis Sepsis Chronic diastolic CHF (congestive heart failure) Submental mass Abscess of neck LAD (lymphadenopathy), submental Class 3 obesity with alveolar hypoventilation and body mass index (BMI) of 50.0 to 59.9 in adult Class 3 severe obesity due to excess calories with body mass index (BMI) of 40.0 to 44.9 in adult Umbilical hernia Tubular adenoma of colon Controlled type 2 diabetes mellitus with kidney complication, with long-term current use of insulin Bright red blood per rectum Constipation Hemangioma Epistaxis Personal history of diabetic foot ulcer Left knee DJD Stage 3 chronic kidney disease Chronic venous insufficiency (Chronic) Vitamin D deficiency Ambulatory dysfunction Hyperkalemia (Acute) Psoriasis Obesity hypoventilation syndrome Hypertrophic toenail Callus of foot Periorbital hematoma of both eyes Airway obstruction, anatomic Respiratory insufficiency following shock, trauma, or surgery Dermatitis Tinea cruris Tinea corporis Folliculitis Atrial flutter with rapid ventricular response Olecranon bursitis, right elbow Chronic anticoagulation (Chronic) Neuropathy (Chronic) Diabetic induced Peripheral arterial disease Bilateral lower extremity edema (Chronic) Gastric ulcer Venous insufficiency of both lower extremities (Chronic) PAD (peripheral artery disease) (Acute) Obesity (Chronic) COPD (chronic obstructive pulmonary disease) (Chronic) Dyslipidemia (Chronic) H/O malignant neoplasm of female breast (Chronic) Stage 3b chronic kidney disease Anemia of chronic disease Iron deficiency anemia Secondary hyperparathyroidism of renal origin Spinal stenosis of lumbar region (Chronic) Hypothyroidism Medical History Type 2 diabetes mellitus with renal complication Hypertension On home oxygen therapy uses 2L O2 at night w/cpap and in the daytime prn Diabetic neuropathy Hx of gastric ulcer Depression Chronic pain of left knee DJD Osteoarthritis Degenerative disc disease Diabetes mellitus, type 2 On anticoagulant therapy coumadin daily Hyperlipidemia Atrial flutter hx of Chronic obstructive pulmonary disease inhaler prn Obesity Diastolic CHF Atrial fibrillation Paroxysmal. Cardioversion x 2. follows with Dr. Rapp---on coumadin. Surgical History Family history of reaction to anesthesia FATHER>NAUSEA AND DIZZINESS History of nasal cauterization History of colonoscopy with polypectomy Nausea and vomiting after administration of anesthetic agent with "extreme vertigo" History of total hysterectomy with bilateral salpingo-oophorectomy (BSO) History of lumpectomy of right breast benign History of carpal tunnel surgery of left wrist History of tooth extraction most teeth removed--full upper denture/partial lower History of cardioversion x2, [facility]; most recent 2019 Family History Sister Family history of reaction to anesthesia nausea/vomiting Hypothyroidism Father Family history of reaction to anesthesia nausea/vomiting Family hx colonic polyps Hypertension Mother Diabetes Hypertension Denies family history of Ovarian cancer Prostate cancer Myocardial infarction Breast cancer Colorectal cancer Social History Smoking Status: Former smoker Tobacco Type: Cigarettes Age Started Using Tobacco: 20; Age Quit Using Tobacco: 60; packs per day: 1; Second Hand Exposure: Yes; Do You Dip or Chew Tobacco: No; Hx Alcohol Use: No Hx Substance Use: No Preferred Language: Bengali Communication Ability: Effective Visual Impairment: Limited Hearing Ability: Hard of Hearing Stem Roller Or Crusher Operator Required: No Beliefs That Will Affect Care: None marital status: Single Current Living Situation: Parent and Family Current Living Situation Comment: BROTHER AND FATHER current occupational status: retired How many Children do You have: 0 Feels Safe at Home: Yes Diet: regular during the past year weight has: remained stable Dental Care, Regularly: Yes Physical Activity Frequency: Does not Exercise Seatbelt Use: always Sunscreen Use: No Assistive Devices: CPAP, Walker and Wheelchair Physical Exam Constitutional: no acute distress. on BiPAP Eyes: PERRL, conjunctivae normal, anicteric sclerae Respiratory: Diminished lung sounds, + Wheezing present. Cardiovascular: regular rate/rhythm. No murmurs. Chronic b/l venous stasis w/ erythema on anterior right lower extremity. Gastrointestinal (Abdomen): normal bowel sounds, soft, nontender, no hepatosplenomegaly Psychiatric: no acute distress. On BiPAP Results & Data Results & Data Vital Signs (Past 12 Hours) Vital Signs Temp Pulse Pulse Resp BP BP Pulse Ox 12/08/24 12:45 64 20 105/84 97 12/08/24 12:09 63 19 111/55 L 96 12/08/24 11:45 66 25 H 124/56 L 87 L 12/08/24 11:33 63 22 129/51 L 85 L 12/08/24 11:33 62 25 H 129/51 L 90 12/08/24 10:22 70 26 H 99 12/08/24 10:22 70 26 H 128/87 99 12/08/24 10:22 99 12/08/24 10:22 36.5 C 70 26 H 128/87 99 12/08/24 10:19 70 O2 Del Method O2 Flow Rate 12/08/24 12:45 12/08/24 12:09 12/08/24 11:45 12/08/24 11:33 12/08/24 11:33 BiPAP 12/08/24 10:22 Nasal Cannula 6 12/08/24 10:22 Nasal Cannula 6 12/08/24 10:22 Nasal Cannula 6 12/08/24 10:22 Nasal Cannula 6 12/08/24 10:19 Supervising Physician Co-Signing Physician Notes Patient seen and examined, chart reviewed, case discussed with Nicky Davenport PA-C and I agree with the assessment and plan as above except as otherwise noted Labs and images reviewed Iveth is a 69-year-old female with a past medical history of acute on chronic respiratory failure with hypoxia/hypercapnia, on home BiPAP and with history of decompensated respiratory failure due to severe hypercapnia, CKD with baseline creatinine around 1.7 and recent sepsis associated ATN, type II DM, chronic diastolic CHF on Bumex/metoprolol, chronic venous insufficiency, COPD, hypothyroidism, CONSTANCE, paroxysmal A-fib on anticoagulation who presents to the emergency department 12/08/2024 with lethargy, somnolence, and who did not receive medications for 1 to 2 days. By report did get a dose of IV Lasix to assist with edema but has had poor urine output. Evaluation has a mixed respiratory/metabolic acidosis, and respiratory failure requiring BiPAP VBG 7.10/pCO2 119/pO2 41/HCO3 37 Renal failure with creatinine elevation 4.11, potassium 6.9 Mild troponin elevation suspect demand ischemia, BNP elevated at 578 Infected appearing UA She was started on cefepime for complicated UTI, given Bumex for volume overload and hyperkalemia, and a dose of sodium bicarbonate for acidosis/renal failure. On signout was discussed with ER provider. Patient was reportedly considering palliative oriented goals of care and was not interested in resuscitation, and unlikely be interested in dialysis. Was recommended for medical therapy and admission. On evaluation due to critical hyperkalemia, volume overload, suspect cardiorenal syndrome, and severe respiratory failure did discuss goals of care. Patient was clear that she would not want intubation or cardiopulmonary resuscitation or to be "on machines ". Given her hyperkalemia, volume overload, and renal failure did discuss whether she would want dialysis. Patient initially not sure, reporting no then potentially yes then depending if her life would be extended for a week or more while on this. She was not sure with the effect of her quality of life would be on this was not really sure if it would be a good idea or not. Reports "we will just let me go if that would be best ". Did clarify that goal of providers were to help make the medical decisions to best fit what was important to her whether that was aggressive treatment, limited treatment/medical measures, or comfort. Patient reports that she does not want to be on the BiPAP and would like to take a drink of water although recognizes that this is important for her breathing right now. Does express some slightly inconsistent goals with incongruence between immediate goals and long-term goals, such as wanting to extend her life and not focusing on comfort but also wanting to take her BiPAP mask off while with severe respiratory acidosis. Palliative care consulted to assist with goals of care discussion to help this measure care to patient's values. Long discussion will continue current treatments and level of care, may transition to JUTE BAG SEWER later this evening another daughter is coming into town. No escalation to dialysis, ICU, or resuscitation/intubation. Acute on chronic hypoxic respiratory failure Combination of acute on chronic CHF, CONSTANCE, OHS VBG 7.1/HCO3 37/pCO2 119 on admission BiPAP continued Patient does not want intubation during circumstances Cardiorenal syndrome, ARF on CKD With obvious volume overload, pleural effusions and PETE Creatinine 4.11, potassium 6.9 Bumex twice daily Lokelma x 1 ordered pending goals of care clarification Insulin, dextrose, calcium gluconate given See goals of care discussion Goals of care addendum: Goals of care were discussed with patient at length with palliative care team. Will continue current treatments and level of care, may transition to JUTE BAG SEWER later this evening another daughter is coming into town. No escalation to dialysis, ICU, or resuscitation/intubation. Given continuing current limited reasonable measures but not goals of care adm ission to PCU is warranted and we will continue BMP check every 4 hours, Lokelma, diuresis treatment, BiPAP as ordered. Agree with above PG Care Time/CCT Total # of Minutes Spent Total Time Spent with Patient: Total time spent is greater than 50% in coordination of care (as documented) at patient's floor/unit and/or counseling patient: Coding Level of Care Code 05803 INT INP/OBS CARE 3/75MIN Diagnoses Acute on chronic respiratory failure with hypoxia and hypercapnia J96.21; J96.22 Acute on chronic kidney failure N17.9; N18.9 Acute renal failure type: unspecified Chronic kidney disease stage: unspecified stage Acute respiratory distress R06.03 PETE (acute kidney injury) N17.9 Hyperkalemia E87.5 Hypothyroidism E03.9 (2) Acute on chronic kidney failure Acute renal failure type: unspecified Chronic kidney disease stage: unspecified stage Qualified Code(s): N17.9 - Acute kidney failure, unspecified; N18.9 - Chronic kidney disease, unspecified
[2024-12-08 13:44] LABS: Basophils # (auto) 0.03 K/uL (0.00-0.20); Basophils % (auto) 0.3 %; Eosinophils # (auto) 0.01 K/uL (0.00-0.50); Eosinophils % (auto) 0.1 %; Immature Granulocytes # (auto) 0.28 K/uL (0.01-0.20); Immature Granulocytes % (auto) 3.2 %; Lymphocytes # (auto) 0.77 K/uL (1.20-3.40); Lymphocytes % (auto) 8.8 %; Monocytes # (auto) 0.99 K/uL (0.11-0.59); Monocytes % (auto) 11.3 %; Neutrophils # (auto) 6.72 K/uL (1.40-6.50); Neutrophils % (auto) 76.3 %
[2024-12-08 13:51] LABS: Basophilic Stippling 1+; Macrocytosis Present; Polychromasia 1+
[2024-12-08] MEDS ORDERED: SODIUM ZIRCONIUM CYCLOSILICATE 10 GM PACKET PO STA (14:26)
[2024-12-08] MEDS: DEXTROSE 50% 50 ML SYRINGE IV STA (14:57)
[2024-12-08] MEDS: ALBUT/IPRATROP 3MG/0.5MG NEB 3 ML VIAL NEB STA (14:57)
[2024-12-08] MEDS: INSULIN HUMAN REGULAR PER UNIT 10 UNITS in SYRINGE 9.9 ML IV STA (15:03)
[2024-12-08] MEDS ORDERED: CEFEPIME 2000MG 2,000 MG/20 ML SYR IV SCH (16:05)
[2024-12-08] MEDS ORDERED: PHARMACY GLYCEMIC MGMT CONSULT PRN (16:05)
[2024-12-08] MEDS ORDERED: INSULIN ASPART PER UNIT CHARGE SC SCH (16:30)
[2024-12-08] MEDS ORDERED: GLUCAGON FOR INJ 1 MG VIAL SQ PRN (16:30)
[2024-12-08] MEDS ORDERED: GLUCOSE 10 TAB/TUBE PO PRN (16:30)
[2024-12-08] MEDS ORDERED: GLUCOSE 40% GEL 15 GM TUBE PO PRN (16:30)
[2024-12-08] MEDS ORDERED: CARBOHYDRATES FOR HYPOGLYCEMIA PO PRN (16:30)
[2024-12-08] MEDS ORDERED: DEXTROSE 50% 50 ML SYRINGE IV PRN (16:30)
[2024-12-08 17:19] LABS: BUN Creatinine Ratio 15.9 (10-20); Calcium 8.7 mg/dl (8.6-10.3); Creatinine Clr Calc Pharmacy 18.7 ml/min; Potassium 5.7 mmol/L (3.5-5.1)
[2024-12-08] MEDS: INSULIN ASPART PER UNIT CHARGE SC SCH (17:47)
[2024-12-08] MEDS: LANTUS PER UNIT CHARGE SC STA (17:48)
--- NOTE | 2024-12-08 18:09 | Palliative Care Consultation ---
Date of Consultation December 08, 2024 Assessment & Plan (1) Palliative care by specialist: Met with pt and her sisters at bedside. Introduced Palliative Medicine and explained our role in advanced care planning, symptom management and navigation through the progression of life limiting disease. Patient and/or family were receptive to palliative services for goals of care discussions. Reviewed we are different from hospice, a home health nurse visiting service. (2) Encounter for assessment of healthcare decision-making capacity: Patient currently lacks decisional capacity based on the inability to convey understanding of personal PMHx, current medical condition, treatment options nor the risks / benefits of those options, and lack of ability to make decisions based on such knowledge. Hospital does have written documentation of patient wishes concerning her chosen proxy for medical decisions. Durable HCPOA document properly executed by patient on 10/09/2022 designates pt's sisters Meme Bowles ([phone]) as primary HCPOA and Norma Coffey ([phone]) as secondary HCPOA. It also documents that pt would not want resuscitation, mechanical ventilation, hemodialyisis nor artificial nutrition. Pt does require a proxy for medical decisions. (3) Counseling regarding goals of care: Spent 30 minutes speaking with pt's sister and primary HCPOA Meme Bowles (Peg) at bedside. Pt was mostly sleeping during this conversation, but did awaken intermittently and asked where she was expressing she wants to go home. Discussed at length the progressive and debilitating nature of pt's heart failure, COPD and renal failure. Peg shared that the pt has been clear about her wishes to not be kept alive on machines if she would not get better. She shared that they had been told by both ER doctors and hospitalist team that the pt's kidneys are failing and she requires HD at this time. Peg shared that the pt has an advanced directive and would not want to be on HD long filler cigar roller machine, stating that one treatment would be acceptable. We discussed that given the pt's Bipap dependence and diastolic HF with current relative hypotension is is very possible that she would become hemodynamically unstable on IHD and require CRRT and vasopressor support in an ICU setting. Discussed that given her current clinical picture with the triad of heart failure, respiratory failure, and renal failure th pt will have a very uphill kinney to improved health. Discussed how HF can worsen renal function adding to volume overload which in turn makes the heart have to work even harder to perfuse kidneys and other vital organs. This in turn can cause pleural effusions/pulmonary edema worsening respiratory failure and oxygen demand. Discussed that is HD is required, it is unlikely that one session would resolve problems and quite possible that the pt might require long filler cigar roller machine HD. Christi and her sister shared that this is not consistent with the pt's values or goals of care. Ultimately, Christi shared that her brother and father have already visited, but her sister Norma is still on her way to hospital. She asked that current level of care continue long enough for her sister to arrive to see pt. Peg requests no further escalation in level of care, she declines hemodialysis, feeding tube and vasopressor support. Pt is DNR/DNI. Peg shared that if the patient has hemodynamic of respiratory collapse, she would ask that pt be kept comfortable and allowed a natural . (4) Dyspnea and respiratory abnormalities: Pt denies SOB/Dyspnea on Bipap with 30% FiO2. Pt has clearly established goals for DNR/DNI per her Advanced Directive on file. Family has requested continuing on current course of treatments, with no escalation to higher (ICU) level of care. Meme (HCPOA) shared that if pt declines to point of escalating oxygen demands or hemodynamic instability, they will transition to comfort directed care. Goal at this time is to minimize suffering while ensuring hemodynamic stability long enough for additional family to arrive from [facility]. Plan 1. Palliative care will continue to follow and readdress GOC tomorrow morning when all family has arrived. If no signs of improvement overnight, family will likely transition to BOTTOM PAINTER. 2. AD on file indicates desire for DNR/DNI, no hemodialysis, no artificial nutrition HCPOA as follows: Primary HCPOA: Meme Bowles ([phone]) - sister Secondary HCPOA: Norma Coffey ) - sister 3. DNR/DNI, NO HD, and no escalation in level of care 4. continue Bipap wean as able, consider dilaudid for acute dyspnea AVOID MORPHINE ISO RENAL FAILURE In case of acute decompensation, do not escalate level of care, call HCPOA to revisit GOC/BOTTOM PAINTER and encourage visitation. History of Present Illness Reason for Consultation: goals of care Requesting Physician: Merlin Hickey MD Attending Physician: Merlin Hickey MD History of Present Illness Ms Perkins is a 69y female withPMHx including acute on chronic respiratory failure with hypoxia/hypercapnia, on home BiPAP and with history of decompensated respiratory failure due to severe hypercapnia, CKD with baseline creatinine around 1.7 and recent sepsis associated ATN, type II DM, chronic diastolic CHF on Bumex/metoprolol, chronic venous insufficiency, COPD, hypothyroidism, CONSTANCE, paroxysmal A-fib on anticoagulation who presents to the emergency department 12/08/2024 with lethargy, somnolence, after reportedly not receiving scheduled medications for 1 to 2 days. By report did get a dose of IV Lasix to assist with edema but has had poor urine output. She remains in ED pending admission for medical mgmt of mixed respirator y/metabolic acidosis, acute on chronic renal failure (Cr 4.1), respiratory failure requiring BiPAP, and UTI. Allergies Allergy/AdvReac Type Severity Reaction Status Date / Time amoxicillin Allergy Severe SOB, RASH Verified 10/30/24 15:10 Penicillins Allergy Severe SOB, RASH Verified 10/30/24 15:10 clarithromycin Allergy Intermediate "feels Verified 10/30/24 15:10 like flying high" clindamycin Allergy Intermediate "feels Verified 10/30/24 15:10 like flying high" fluconazole Allergy Intermediate "feels Verified 10/30/24 15:10 like flying high" sulfamethoxazole Allergy Intermediate "feels Verified 10/30/24 15:10 like flying high" trimethoprim Allergy Intermediate "feels Verified 10/30/24 15:10 like flying high" Bactrim Allergy Unknown UNKNOWN Verified 02/21/18 10:32 empagliflozin AdvReac Severe Verified 10/30/24 15:10 [From Jardiance] codeine AdvReac Mild ITCHING, Verified 10/30/24 15:10 NAUSEA Home Medications Medication Instructions Recorded Confirmed Type meclizine 12.5 mg tablet 12.5 mg PO TID PRN Dizziness 10 09/26/16 12/08/24 History days #30 tabs Wheelchair (Manual) (Manual #1 ea 08/04/21 11/22/24 Rx Wheelchair) pen needle, diabetic 31 gauge x #200 ea 10/09/22 11/22/24 Rx 3/16" (BD Ultra-Fine Mini Pen Needle) myacurbt-gsqg-cvfg 8 mg-folic 400 1 tab PO QAM 12/27/22 12/08/24 History mcg-K 50 mcg-lutein 300 mcg tablet (Centrum Silver Women) Oxygen Home #1 ea 01/19/23 11/22/24 Rx buspirone 5 mg tablet 5 mg PO TID PRN anxiety #60 tabs 06/28/23 12/08/24 Rx nystatin 100,000 unit/gram topical 1 applic topical BID PRN itching 01/11/24 12/08/24 Rx powder #60 grams metoprolol tartrate 25 mg tablet 25 mg PO BID 90 days #180 tabs 02/12/24 12/08/24 Rx zrdpnjpo-lbq-wxwosb 5 mg-zeaxanth 1 cap PO DAILY 02/20/24 12/08/24 History 1 mg-bilberry 7.5 mg-herbal capsule ([employer] Formula) betamethasone dipropionate 0.05 % 1 applic topical BID #45 grams 03/31/24 Rx topical ointment insulin syringe-needle U-100 1 mL #200 ea 06/10/24 11/22/24 Rx 31 gauge x 5/16" (BD Insulin Syringe Ultra-Fine) blood sugar diagnostic (OneTouch #200 ea 06/14/24 11/22/24 Rx Ultra Test strips) flash glucose scanning reader #1 ea 06/14/24 11/22/24 Rx (FreeStyle Cristiana [address] [place]) triamcinolone acetonide 0.1 % 1 applic topical .COMPLEX #30 grams 08/20/24 12/08/24 Rx topical ointment iqgmsdkfwp-lamzxqiihn-ltvs See Rx Instructions topical 09/16/24 12/08/24 History vera-vits A,D,and E 20 %-3 % .COMPLEX PRN VAGINAL SX topical cream (Vagisil) miconazole nitrate 2 % vaginal 1 applic vaginal UD PRN DIRECTED 09/16/24 12/08/24 History cream (Monistat 7) tacrolimus 0.1 % topical ointment 1 applic topical BID 09/16/24 12/08/24 History albuterol sulfate 90 mcg/actuation 2 puff inhalation Q6H PRN 10/28/24 12/08/24 Rx aerosol inhaler Shortness Of Breath #18 grams atorvastatin 40 mg tablet (Lipitor) 40 mg PO QAM #90 tabs 11/19/24 12/08/24 Rx Lactobacillus acidophilus 10 10,000 mmu cells PO DAILY 11/22/24 12/08/24 History billion cell capsule (Probiotic) apremilast 30 mg tablet (Otezla) 30 mg PO QAM 11/22/24 12/08/24 History calcitriol 0.25 mcg capsule 0.25 mcg PO 3XWK 11/22/24 12/08/24 History clotrimazole-betamethasone 1 1 applic topical UD PRN DIRECTED 11/22/24 12/08/24 History %-0.05 % topical cream ezetimibe 10 mg tablet 10 mg PO QAM 11/22/24 12/08/24 History BiPap Machine #1 ea 12/05/24 Rx Oxygen Home #1 ea 12/05/24 Rx acetaminophen 500 mg capsule 1,000 mg (2 x 500 mg) PO Q6H PRN 12/05/24 12/08/24 Rx Pain #0 caps amiodarone 100 mg tablet 200 mg (2 x 100 mg) PO QAM #90 tabs 12/05/24 12/08/24 Rx bumetanide 2 mg tablet 2 mg PO BID #180 tabs 12/05/24 12/08/24 Rx ferrous sulfate 325 mg (65 mg 325 mg PO DAILY #0 tabs 12/05/24 12/08/24 Rx iron) tablet insulin glargine 100 unit/mL (3 20 unit (0.2 mL) subcut BID #30 mL 12/05/24 12/08/24 Rx mL) subcutaneous pen (Basaglar KwikPen U-100 Insulin) insulin lispro 100 unit/mL See Rx Instructions .Route 12/05/24 12/08/24 Rx subcutaneous solution (Admelog U-) .COMPLEX #10 mL levothyroxine 50 mcg tablet 50 mcg PO UD #0 tabs 12/05/24 12/08/24 Rx warfarin 5 mg tablet (Jantoven) 2.5 mg (1/2 x 5 mg) PO DAILY #0 12/05/24 12/08/24 Rx tabs Patient History Medical History Type 2 diabetes mellitus with renal complication Hypertension On home oxygen therapy uses 2L O2 at night w/cpap and in the daytime prn Diabetic neuropathy Hx of gastric ulcer Depression Chronic pain of left knee DJD Osteoarthritis Degenerative disc disease Diabetes mellitus, type 2 On anticoagulant therapy coumadin daily Hyperlipidemia Atrial flutter hx of Chronic obstructive pulmonary disease inhaler prn Obesity Diastolic CHF Atrial fibrillation Paroxysmal. Cardioversion x 2. follows with Dr. Rapp---on coumadin. Surgical History Family history of reaction to anesthesia FATHER>NAUSEA AND DIZZINESS History of nasal cauterization History of colonoscopy with polypectomy Nausea and vomiting after administration of anesthetic agent with "extreme vertigo" History of total hysterectomy with bilateral salpingo-oophorectomy (BSO) History of lumpectomy of right breast benign History of carpal tunnel surgery of left wrist History of tooth extraction most teeth removed--full upper denture/partial lower History of cardioversion , [facility]; most recent 2019 Family History Sister Family history of reaction to anesthesia nausea/vomiting Hypothyroidism Father Family history of reaction to anesthesia nausea/vomiting Family hx colonic polyps Hypertension Mother Diabetes Hypertension Denies family history of Ovarian cancer Prostate cancer Myocardial infarction Breast cancer Colorectal cancer Social History Smoking Status: Former smoker Tobacco Type: Cigarettes Age Started Using Tobacco: 20; Age Quit Using Tobacco: 60; packs per day: 1; Second Hand Exposure: No; Do You Dip or Chew Tobacco: No; Hx Alcohol Use: No Hx Substance Use: No Preferred Language: French Communication Ability: Effective Visual Impairment: Limited Hearing Ability: Hard of Hearing Make Ready Worker Required: No Beliefs That Will Affect Care: None marital status: Single Current Living Situation: Assisted Current Living Situation Comment: BROTHER AND FATHER current occupational status: retired How many Children do You have: 0 Feels Safe at Home: Yes Safety Concerns: Feels Safe At This Time Diet: regular during the past year weight has: remained stable Dental Care, Regularly: Yes Physical Activity Frequency: Does not Exercise Seatbelt Use: always Sunscreen Use: No Assistive Devices: BiPap, Denture - Upper, Glasses, Walker and Wheelchair Review of Systems Review of Systems: All systems reviewed & are unremarkable except as noted in HPI & below Physical Exam Constitutional: well developed, + morbidly obese and + lethargic Eyes: PERRL, conjunctivae normal, anicteric sclerae Respiratory: Diminished lung sounds, + Wheezing present. On Bipap, 30% Cardiovascular: regular rate/rhythm. No murmurs. Chronic b/l venous stasis w/ erythema on anterior right lower extremity. Gastrointestinal (Abdomen): normal bowel sounds, soft, nontender, no hepatosplenomegaly Psychiatric: Results & Data Vital Signs (Past 12 Hours) Vital Signs Temp Pulse Pulse Resp BP BP Pulse Ox 12/08/24 16:20 12/08/24 16:20 36.5 C 65 20 174/88 H 96 12/08/24 16:01 80 23 93 12/08/24 15:39 12/08/24 15:12 70 21 144/54 H 87 L 12/08/24 14:47 69 22 96 12/08/24 14:46 144/54 H 12/08/24 14:19 69 12/08/24 14:15 67 24 126/78 97 12/08/24 14:00 120/49 L 12/08/24 14:00 61 22 97 12/08/24 13:51 61 20 95 12/08/24 13:45 114/54 L 12/08/24 13:42 60 20 12/08/24 13:31 130/50 L 12/08/24 13:21 66 29 H 12/08/24 13:15 65 27 H 147/67 H 99 12/08/24 13:01 132/64 12/08/24 12:45 64 20 105/84 97 12/08/24 12:40 23 94 12/08/24 12:15 82 27 H 92 12/08/24 12:09 63 19 111/55 L 96 12/08/24 11:45 66 25 H 124/56 L 87 L 12/08/24 11:33 63 22 129/51 L 85 L 12/08/24 11:33 62 25 H 129/51 L 90 12/08/24 11:24 12/08/24 10:30 78 28 H 91 12/08/24 10:22 70 26 H 99 12/08/24 10:22 70 26 H 128/87 99 12/08/24 10:22 99 12/08/24 10:22 36.5 C 70 26 H 128/87 99 12/08/24 10:19 70 O2 Del Method O2 Flow Rate FiO2 12/08/24 16:20 BiPAP 40 12/08/24 16:20 Room Air 12/08/24 16:01 40 12/08/24 15:39 BiPAP 12/08/24 15:12 12/08/24 14:47 40 12/08/24 14:46 12/08/24 14:19 12/08/24 14:15 12/08/24 14:00 12/08/24 14:00 12/08/24 13:51 12/08/24 13:45 12/08/24 13:42 12/08/24 13:31 12/08/24 13:21 12/08/24 13:15 12/08/24 13:01 12/08/24 12:45 12/08/24 12:40 40 12/08/24 12:15 BiPAP 30 12/08/24 12:09 12/08/24 11:45 12/08/24 11:33 12/08/24 11:33 BiPAP 12/08/24 11:24 30 12/08/24 10:30 35 12/08/24 10:22 Nasal Cannula 6 12/08/24 10:22 Nasal Cannula 6 12/08/24 10:22 Nasal Cannula 6 12/08/24 10:22 Nasal Cannula 6 12/08/24 10:19 Laboratory Results Abnormal lab results 12/08/24 12/08/24 12/08/24 Range/Units 10:34 11:50 13:07 RBC 2.87 L (4.20-5.40) M/uL Hgb 8.3 L (12.0-16.0) g/dl Hct 30.7 L (37.0-47.0) % MCV 107.0 H (80.0-100.0) fL MCHC 27.0 L (32.0-36.0) g/dL RDW Std Deviation 68.3 H (36.4-46.3) fL RDW Coeff of Shannan 17.3 H (11.5-14.5) % Neut # (Auto) 6.72 H (1.40-6.50) K/uL Lymph # (Auto) 0.77 L (1.20-3.40) K/uL [place] # (Auto) 0.99 H (0.11-0.59) K/uL Immature Gran # (Auto) 0.28 H (0.01-0.20) K/uL Absolute Nucleated RBC 0.17 H (0.00-0.12) K/uL PT 26.6 H (9.0-12.0) Seconds INR 2.7 H (0.9-1.1) APTT 41 H (21-31) Seconds VBG pH 7.10 L (7.36-7.41) VBG pCO2 119 H (38-50) mmHg Potassium 6.9 H* (3.5-5.1) mmol/L Chloride 96 L (98-107) mmol/L Carbon Dioxide 38 H (21-32) mmol/L BUN 66 H (6-23) mg/dl Creatinine 4.11 H (0.6-1.2) mg/dl Glucose 216 H (70-99(Fasting)) mg/dl POC Glucose (70-99) mg/dl Calcium 8.5 L (8.6-10.3) mg/dl Troponin I High Sens 16.3 H (0-14) pg/ml B-Natriuretic Peptide 578 H (0-100) pg/ml Albumin 3.2 L (3.4-5.0) gm/dl Globulin 5.0 H (2.5-4.0) gm/dl Albumin/Globulin Ratio 0.6 L (0.9-2) TSH 4.695 H (0.300-4.500) uIu/ml Free T4 0.56 L (0.61-1.60) ng/dl Urine Appearance Turbid A (Clear) Urine Protein 1+ H (Negative) Urine Ketones Trace H (Negative) Urine Blood 3+ H (Negative) Urine Bilirubin 1+ H (Negative) Ur Leukocyte Esterase 2+ H (Negative) Urine WBC (Auto) >50 H (0-5) /hpf Urine RBC (Auto) >20 H (0-2) /hpf U Hyaline Cast (Auto) >20 H (0-2) /lpf U Epithel Cells (Auto) 6-10 H (0-2) /hpf Hyaline Casts Present A (None Presnt) /lpf Urine Yeast Present A (None Prsent) 12/08/24 12/08/24 12/08/24 Range/Units 16:20 16:23 18:13 RBC (4.20-5.40) M/uL Hgb (12.0-16.0) g/dl Hct (37.0-47.0) % MCV (80.0-100.0) fL MCHC (32.0-36.0) g/dL RDW Std Deviation (36.4-46.3) fL RDW Coeff of Shannan (11.5-14.5) % Neut # (Auto) (1.40-6.50) K/uL Lymph # (Auto) (1.20-3.40) K/uL [place] # (Auto) (0.11-0.59) K/uL Immature Gran # (Auto) (0.01-0.20) K/uL Absolute Nucleated RBC (0.00-0.12) K/uL PT (9.0-12.0) Seconds INR (0.9-1.1) APTT (21-31) Seconds VBG pH 7.24 L (7.36-7.41) VBG pCO2 93 H (38-50) mmHg Potassium 5.7 H (3.5-5.1) mmol/L Chloride 97 L (98-107) mmol/L Carbon Dioxide 36 H (21-32) mmol/L BUN 69 H (6-23) mg/dl Creatinine 4.35 H (0.6-1.2) mg/dl Glucose 220 H (70-99(Fasting)) mg/dl POC Glucose 228 H (70-99) mg/dl Calcium (8.6-10.3) mg/dl Troponin I High Sens (0-14) pg/ml B-Natriuretic Peptide (0-100) pg/ml Albumin (3.4-5.0) gm/dl Globulin (2.5-4.0) gm/dl Albumin/Globulin Ratio (0.9-2) TSH (0.300-4.500) uIu/ml Free T4 (0.61-1.60) ng/dl Urine Appearance (Clear) Urine Protein (Negative) Urine Ketones (Negative) Urine Blood (Negative) Urine Bilirubin (Negative) Ur Leukocyte Esterase (Negative) Urine WBC (Auto) (0-5) /hpf Urine RBC (Auto) (0-2) /hpf U Hyaline Cast (Auto) (0-2) /lpf U Epithel Cells (Auto) (0-2) /hpf Hyaline Casts (None Presnt) /lpf Urine Yeast (None Prsent) Diagnostic Findings Chest X-Ray 12/08/24 10:12 XR chest 1V portable CLINICAL HISTORY: weakness COMPARISON STUDY: Chest radiograph November 22, 2024. FINDINGS: There is no pneumothorax. Small bilateral pleural fusions are present. Cardiomegaly is again noted. Mediastinal contours are stable. Interstitial thickening and bilateral perihilar opacities have progressed since prior exam. IMPRESSION: 1. Progression of interstitial and alveolar pulmonary edema since prior exam. 2. Cardiomegaly. 3. Small bilateral pleural effusions. ACT 112: Negative or not required by law. Electronically signed by: Branden Hassan M.D. 12/08/2024 11:[address] 12/08/24 10:12 CT OF THE HEAD WITHOUT CONTRAST CLINICAL HISTORY: Altered mental status. COMPARISON STUDY: MRI of the brain July 14, 2014. Head CT June 04, 2020. CT DOSE: 1250.21 mGy.cm TECHNIQUE: Helical axial images of the head were obtained without IV contrast. Automated exposure control was utilized for the study. A dose lowering technique was utilized adhering to the principles of ALARA. FINDINGS: This study is mildly compromised by motion artifact. No acute intracranial hemorrhage, midline shift or mass effect is present. The ventricular system is unremarkable. The basal cisterns are patent. No extra- axial collections are present. There are no findings to suggest acute dural sinus thrombosis or acute territorial infarct. No significant calvarial abnormalities are present. Visualized portions of the sinuses and mastoid air cells are clear. IMPRESSION: No acute intracranial findings. Mild motion artifact. ACT 112: Negative or not required by law. Electronically signed by: Branden Hassan M.D. 12/08/2024 12:51 PM Medications Administered Current Inpatient Medications Amiodarone HCl (Amiodarone 200 Mg Tab) 200 mg PO QAM [facility] Stop: 01/08/25 08:59 Dextrose (Dextrose 50% 50 Ml Syringe) 25 - 50 ml IV UD PRN; Protocol PRN Reason: Hypoglycemia Protocol Stop: 01/07/25 16:29 Glucagon (Glucagon For Inj 1 Mg Vial) 1 mg SQ UD PRN; Protocol PRN Reason: Hypoglycemia Protocol Stop: 01/07/25 16:29 Glucose (Glucose 40% Gel 15 Gm Tube) 15 - 30 gm PO UD PRN; Protocol PRN Reason: Hypoglycemia Protocol Stop: 01/07/25 16:29 Glucose (Glucose 10 Tab/Tube) 4 - 8 tab PO UD PRN; Protocol PRN Reason: Hypoglycemia Protocol Stop: 01/07/25 16:29 Bumetanide 2 mg/ Syringe 8 mls @ 4 mls/min IV BID@0900,1700 [facility] Stop: 01/07/25 16:59 Last Admin: 12/08/24 18:24 Dose: 4 mls/min Cefepime HCl (Maxipime 2000mg) 1,000 mg in 10 mls @ 5 mls/min IV Q12H [facility] Stop: 12/14/24 00:00 Insulin Aspart (Insulin Aspart Per Unit Charge) 0 units SC Q6 [facility] Stop: 01/07/25 16:29 Last Admin: 12/08/24 17:47 Dose: 5 units Levothyroxine Sodium (Levothyroxine Sodium 75 Mcg Tablet) 75 mcg PO DAILYBB [facility] Stop: 01/08/25 06:29 Metoprolol Tartrate (Metoprolol Tartrate 25 Mg Tab) 25 mg PO BID [facility] Stop: 01/07/25 20:59 Miscellaneous (Carbohydrates For Hypoglycemia ) 15 - 30 gm PO UD PRN PRN Reason: Hypoglycemia Treatment Stop: 01/07/25 16:29 Miscellaneous Information (Pharmacy Glycemic Mgmt Consult) 1 each N/A UD PRN; Protocol PRN Reason: Consult Stop: 01/07/25 16:04 Sodium Zirconium Cyclosilicate (Sodium Zirconium Cyclosilicate 10 Gm Packet) 10 gm PO Q8H [facility] Stop: 12/09/24 08:31 Warfarin Sodium (Warfarin Sod 2.5 Mg Tab) 2.5 mg PO DAILY@1600 [facility] Stop: 01/08/25 15:59 PG Care Time/CCT Total # of Minutes Spent Total Time Spent with Patient: Total time spent is greater than 50% in coordination of care (as documented) at patient's floor/unit and/or counseling patient: Advanced Care Planning 60586 Advanced Care Planning 30 [place] [address] IN/OBS CONSULT LVL 4,60M Patient Type New History Expanded Problem Focused Exam Expanded Problem Focused Medical Decision Making Low Complexity Diagnoses Palliative care by specialist Z51.5 Encounter for assessment of healthcare decision-making capacity Z02.79 Counseling regarding goals of care Z71.89 Dyspnea and respiratory abnormalities R06.00; R06.89 Additional Codes Advanced Care Planning - 22667 Advanced Care Planning 30 Min: 00350 Advanced Care Planning 30 Min ([id number])
[2024-12-08 18:21] LABS: Base Excess VBG 8.7 mEq/L; HCO3 VBG 40 mmol/L; Oxygen Saturation VBG 87.6 %; PCO2 VBG 93 mmHg (38-50); PO2 VBG 54 mmHg; pH VBG 7.24 (7.36-7.41)
[2024-12-08] MEDS: BUMETANIDE 2 MG in SYRINGE 0 ML IV SCH (18:24)
[2024-12-08 18:44] LABS: BUN Creatinine Ratio 15.9 (10-20); Calcium 8.6 mg/dl (8.6-10.3); Creatinine Clr Calc Pharmacy 18.7 ml/min; Potassium 5.8 mmol/L (3.5-5.1)
[2024-12-08] MEDS: SODIUM ZIRCONIUM CYCLOSILICATE 10 GM PACKET PO SCH (19:37)
[2024-12-08] MEDS: METOPROLOL TARTRATE 25 MG TAB PO SCH (22:05)
[2024-12-08 23:37] LABS: BUN Creatinine Ratio 16.3 (10-20); Calcium 8.3 mg/dl (8.6-10.3); Creatinine Clr Calc Pharmacy 18.3 ml/min; Potassium 5.8 mmol/L (3.5-5.1)
[2024-12-08] MEDS: CEFEPIME 1000MG 1,000 MG/10 ML SYR IV SCH (23:43)
[2024-12-09 04:55] LABS: INR 4.2 (0.9-1.1)
[2024-12-09 05:03] LABS: A calco-baum cmplx NotReported Not Detected (NotDetected); Bact fragilis Not Reported Not Detected (NotDetected); Blood Culture Id Panel See PCR Comment (NotDetected); C auris Not Reported Not Detected (NotDetected); Calbicans Not Reported Not Detected (NotDetected); Candida glabrata Not Reported Not Detected (NotDetected); Candida krusei Not Reported Not Detected (NotDetected); Cneoformans/gatti Not Reported Not Detected (NotDetected); Cparapsilosis Not Reported Not Detected (NotDetected); E cloacae compx Not Reported Not Detected (NotDetected); Efaecalis Not Reported Not Detected (NotDetected); Efaecium Not Reported Not Detected (NotDetected); Enterobacterales Not Reported Not Detected (NotDetected); Escherichia coli Not Reported Not Detected (NotDetected); H influenzae Not Reported Not Detected (NotDetected); K aerogenes Not Reported Not Detected (NotDetected); Koxytoca Not Reported Not Detected (NotDetected); Kpneumoniae grp Not Reported Not Detected (NotDetected); Lmonocyt Not Reported Not Detected (NotDetected); N meningitidis Not Reported Not Detected (NotDetected); P aeruginosa Not Reported Not Detected (NotDetected); Proteus spp Not Reported Not Detected (NotDetected); Salmonella spp Not Reported Not Detected (NotDetected); Staph lugdunensis Not Reported Not Detected (NotDetected); Staph spp. Not Reported DETECTED (NotDetected); Staphaureus Not Reported Not Detected (NotDetected); Staphepi Not Reported Not Detected (NotDetected); Stenmaltophilia Not Reported Not Detected (NotDetected); Strep agal(GrpB) Not Reported Not Detected (NotDetected); Strep pneum Not Reported Not Detected (NotDetected); Strep pyog (GrpA) Not Reported Not Detected (NotDetected); Strep spp Not Reported Not Detected (NotDetected)
[2024-12-09 05:14] LABS: Calcium 7.9 mg/dl (8.6-10.3); Creatinine Clr Calc Pharmacy 17.3 ml/min; Potassium 5.9 mmol/L (3.5-5.1)
[2024-12-09 05:49] LABS: Staphylococcus spp. DETECTED (NotDetected)
[2024-12-09] MEDS: LEVOTHYROXINE SODIUM 75 MCG TABLET PO SCH (06:10)
[2024-12-09 07:34] LABS: Hematocrit (blood only) 26.4 % (37.0-47.0); Hemoglobin 7.5 g/dl (12.0-16.0); Mean Corpuscular Hemoglobin 28.6 pg (25.0-34.0); Mean Corpuscular Hgb Conc 28.4 g/dL (32.0-36.0); Mean Corpuscular Volume 100.8 fL (80.0-100.0); Mean Platelet Volume 10.3 fL (9.4-12.4); Nucleated RBC % (auto) 1.6 %; Platelet Count 316 K/uL (130-400); RDW Coefficient of Variation 17.3 % (11.5-14.5); RDW Standard Deviation 62.7 fL (36.4-46.3); Red Blood Count 2.62 M/uL (4.20-5.40); White Blood Count 6.37 K/ul (4.8-10.8)
[2024-12-09] MEDS: AMIODARONE 200 MG TAB PO SCH (08:44)
[2024-12-09] MEDS: ALBUTEROL 0.083% NEBU SOLN 3 ML VIAL NEB PRN (09:17)
[2024-12-09] MEDS: SODIUM CHLORIDE 0.9% 1,000 ML IV SCH (10:32)
[2024-12-09 10:41] LABS: Base Excess ABG 8.6 mEq/L (-9-1.8); HCO3 ABG 37 mmol/L (19-24); Oxygen Saturation ABG 98.4 % (90-95); PCO2 ABG 85 mmHg (35-46); PO2 ABG 91 mmHg (80-95); pH ABG 7.25 (7.35-7.45)
[2024-12-09 10:42] LABS: Allen Test Pos (Pos)
--- NOTE | 2024-12-09 10:49 | Nephrology Consultation ---
Date of Consultation December 09, 2024 Assessment & Plan (1) PETE (acute kidney injury): (2) Acute hyperkalemia: (3) Altered mental status: (4) Anemia: (5) Chronic diastolic CHF (congestive heart failure): (6) Obesity hypoventilation syndrome: Plan 69-year-old female with complex past medical history with multiple significant comorbidities including stage IIIb/ 4 CKD, repeated episodes of acute kidney injury, obesity hypoventilation syndrome, diastolic dysfunction, chronic high- dose diuretics use and recent hospitalization with right lower extremity cellulitis completing a course of antibiotic. Readmitted after 3 days from her side with lethargy and noted to have acute kidney injury and hyperkalemia. Creatinine was 3.7 on admission rapidly worsened to 4.7 this morning. Potassium was 7 which slightly improved but staying high at 5.8-5.9 associated with chronic respiratory alkalosis. Chest x-ray on admission notable for pulmonary congestion was started on Bumex initially but stopped because of rapid worsening of kidney function and started on IV normal saline. However, urine output remained quite low with only 350 mL since admission. --Continue on IV fluid, monitor urine output and repeat renal panel this afternoon. If urine output remains low and kidney function continues to worsen, will need to stop IV fluid.. If family decide not to escalate care or consider dialysis, may need to eventually transition to comfort care. -- Dose medications for EGFR less than 10. -- Overall prognosis remains poor Thank you for allowing me to participate in your patient's care. History of Present Illness Reason for Consultation: PETE, hyperkalemia Attending Physician: Jayne Gna MD History of Present Illness Ms. Iveth Perkins is a 69 year old female with PMH significant for stage IIIb CKD repeated history of acute kidney injury, obesity, CONSTANCE, CHF, Atrial flutter, PAD, anemia, TIA admitted to the hospital with lethargy, generalized weakness, acute kidney injury and hyperkalemia. Nephrology consult requested for management of above. Iveth was brought to the ER on 12/08/24 after she was noted to be quite lethargy at [facility]. She was recently admitted to the hospital from 11/22/2024 to 12/05/2024 for RLE cellulitis causing sepsis complicated by ATN/PETE with hypercapnic respiratory failure. Creatinine peaked to 3.9 during last hospitalization but improved to 1.9 at discharge which is close to her baseline. Completed a course of antibiotics including daptomycin, cefepime, and flagyl. She was then discharged to [facility] for rehab. On arrival to ER yesterday she was noted to have PETE, creatinine was 3.9 mg/dl which rapidly worsened to 4.7 this morning. Potassium was 7, received Lokelma and calcium gluconate and potassium this morning improved but still elevated at 5.9. Also has chronic respiratory alkalosis, bicarbonate dose 39. Chest x-ray on admission was notable for bilateral pulmonary vascular congestion. She was given some her Bumex 2 mg IV twice a day. However, as her kidney function rapidly worsen, Bumex was stopped and she was started on IV normal saline at 80 mL/h this morning. She was continued on daptomycin. Blood culture positive for gram- positive cocci. She remained quite lethargic since admission. Palliative care was consulted and had discussion with family and tentative plan not to consider dialysis show or escalation of care. Stage 3B/4 CKD with variable creatinine from 1.7-2.0 mg/dl with repeated episodes of acute kidney injury. Prior to April 2018 her renal function was decent with b/l cr 1-1.1. UA was negative for proteinuria or hematuria, has microalbuminuria. Renal ultrasound was negative for hydronephrosis although study was limited due to body habitus. Also has history of repeated hyperkalemia. No history of chronic NSAID or PPI use. No hypercalcemia or hypoalbuminemia. Ex smoker, no F/H of CKD or ESRD. Hypertension for many years, was on irbesartan 150 mg, no history of CAD, has history of AFib/a flutter, on amiodarone and metoprolol and Eliquis. Has diabetes, no retinopathy, has microalbuminuria, diabetes better controlled, Jardiance had to be stopped because of genital fungal infection. Has chronic lower extremity edema with venous insufficiency, has been on Bumex 2 mg twice a day. Patient seen and examined at bedside, on BiPAP, resting comfortably in bed. She denied any pain or discomfort. Allergies Allergy/AdvReac Type Severity Reaction Status Date / Time amoxicillin Allergy Severe SOB, RASH Verified 10/30/24 15:10 Penicillins Allergy Severe SOB, RASH Verified 10/30/24 15:10 clarithromycin Allergy Intermediate "feels Verified 10/30/24 15:10 like flying high" clindamycin Allergy Intermediate "feels Verified 10/30/24 15:10 like flying high" fluconazole Allergy Intermediate "feels Verified 10/30/24 15:10 like flying high" sulfamethoxazole Allergy Intermediate "feels Verified 10/30/24 15:10 like flying high" trimethoprim Allergy Intermediate "feels Verified 10/30/24 15:10 like flying high" Bactrim Allergy Unknown UNKNOWN Verified 02/21/18 10:32 empagliflozin AdvReac Severe Verified 10/30/24 15:10 [From Jardiance] codeine AdvReac Mild ITCHING, Verified 10/30/24 15:10 NAUSEA Home Medications Medication Instructions Recorded Confirmed Type meclizine 12.5 mg tablet 12.5 mg PO TID PRN Dizziness 10 09/26/16 12/08/24 History days #30 tabs Wheelchair (Manual) (Manual #1 ea 08/04/21 11/22/24 Rx Wheelchair) pen needle, diabetic 31 gauge x #200 ea 10/09/22 11/22/24 Rx 3/16" (BD Ultra-Fine Mini Pen Needle) pooeljpv-gzln-hror 8 mg-folic 400 1 tab PO QAM 12/27/22 12/08/24 History mcg-K 50 mcg-lutein 300 mcg tablet (Centrum Silver Women) Oxygen Home #1 ea 01/19/23 11/22/24 Rx buspirone 5 mg tablet 5 mg PO TID PRN anxiety #60 tabs 06/28/23 12/08/24 Rx nystatin 100,000 unit/gram topical 1 applic topical BID PRN itching 01/11/24 12/08/24 Rx powder #60 grams metoprolol tartrate 25 mg tablet 25 mg PO BID 90 days #180 tabs 02/12/24 12/08/24 Rx cawkiorl-tvd-ryrjvj 5 mg-zeaxanth 1 cap PO DAILY 02/20/24 12/08/24 History 1 mg-bilberry 7.5 mg-herbal capsule (Macular Health Formula) betamethasone dipropionate 0.05 % 1 applic topical BID #45 grams 03/31/24 12/08/24 Rx topical ointment insulin syringe-needle U-100 1 mL #200 ea 06/10/24 11/22/24 Rx 31 gauge x 5/16" (BD Insulin Syringe Ultra-Fine) blood sugar diagnostic (OneTouch #200 ea 06/14/24 11/22/24 Rx Ultra Test strips) flash glucose scanning reader #1 ea 06/14/24 11/22/24 Rx (FreeStyle Cristiana 2 Canalou) triamcinolone acetonide 0.1 % 1 applic topical .COMPLEX #30 grams 08/20/24 12/08/24 Rx topical ointment hakmzjzgov-ezaoqpmntq-lufx See Rx Instructions topical 09/16/24 12/08/24 History vera-vits A,D,and E 20 %-3 % .COMPLEX PRN VAGINAL SX topical cream (Vagisil) miconazole nitrate 2 % vaginal 1 applic vaginal UD PRN DIRECTED 09/16/24 12/08/24 History cream (Monistat 7) tacrolimus 0.1 % topical ointment 1 applic topical BID 09/16/24 12/08/24 History albuterol sulfate 90 mcg/actuation 2 puff inhalation Q6H PRN 10/28/24 12/08/24 Rx aerosol inhaler Shortness Of Breath #18 grams atorvastatin 40 mg tablet (Lipitor) 40 mg PO QAM #90 tabs 11/19/24 12/08/24 Rx Lactobacillus acidophilus 10 10,000 mmu cells PO DAILY 11/22/24 12/08/24 History billion cell capsule (Probiotic) apremilast 30 mg tablet (Otezla) 30 mg PO QAM 11/22/24 12/08/24 History calcitriol 0.25 mcg capsule 0.25 mcg PO 3XWK 11/22/24 12/08/24 History clotrimazole-betamethasone 1 1 applic topical UD PRN DIRECTED 11/22/24 12/08/24 History %-0.05 % topical cream ezetimibe 10 mg tablet 10 mg PO QAM 11/22/24 12/08/24 History BiPap Machine #1 ea 12/05/24 Rx Oxygen Home #1 ea 12/05/24 Rx acetaminophen 500 mg capsule 1,000 mg (2 x 500 mg) PO Q6H PRN 12/05/24 12/08/24 Rx Pain #0 caps amiodarone 100 mg tablet 200 mg (2 x 100 mg) PO QAM #90 tabs 12/05/24 12/08/24 Rx bumetanide 2 mg tablet 2 mg PO BID #180 tabs 12/05/24 12/08/24 Rx ferrous sulfate 325 mg (65 mg 325 mg PO DAILY #0 tabs 12/05/24 12/08/24 Rx iron) tablet insulin glargine 100 unit/mL (3 20 unit (0.2 mL) subcut BID #30 mL 12/05/24 12/08/24 Rx mL) subcutaneous pen (Basaglar KwikPen U-100 Insulin) insulin lispro 100 unit/mL See Rx Instructions .Route 12/05/24 12/08/24 Rx subcutaneous solution (Admelog U-) .COMPLEX #10 mL levothyroxine 50 mcg tablet 50 mcg PO UD #0 tabs 12/05/24 12/08/24 Rx warfarin 5 mg tablet (Jantoven) 2.5 mg (1/2 x 5 mg) PO DAILY #0 12/05/24 12/08/24 Rx tabs Patient History Medical History Type 2 diabetes mellitus with renal complication Hypertension On home oxygen therapy uses 2L O2 at night w/cpap and in the daytime prn Diabetic neuropathy Hx of gastric ulcer Depression Chronic pain of left knee DJD Osteoarthritis Degenerative disc disease Diabetes mellitus, type 2 On anticoagulant therapy coumadin daily Hyperlipidemia Atrial flutter hx of Chronic obstructive pulmonary disease inhaler prn Obesity Diastolic CHF Atrial fibrillation Paroxysmal. Cardioversion x 2. follows with Dr. Rapp---on coumadin. Surgical History Family history of reaction to anesthesia FATHER>NAUSEA AND DIZZINESS History of nasal cauterization History of colonoscopy with polypectomy Nausea and vomiting after administration of anesthetic agent with "extreme vertigo" History of total hysterectomy with bilateral salpingo-oophorectomy (BSO) History of lumpectomy of right breast benign History of carpal tunnel surgery of left wrist History of tooth extraction most teeth removed--full upper denture/partial lower History of cardioversion x2, [facility]; most recent 2019 Family History Sister Family history of reaction to anesthesia nausea/vomiting Hypothyroidism Father Family history of reaction to anesthesia nausea/vomiting Family hx colonic polyps Hypertension Mother Diabetes Hypertension Denies family history of Ovarian cancer Prostate cancer Myocardial infarction Breast cancer Colorectal cancer Social History Smoking Status: Former smoker Tobacco Type: Cigarettes Age Started Using Tobacco: 20; Age Quit Using Tobacco: 60; packs per day: 1; Second Hand Exposure: No; Do You Dip or Chew Tobacco: No; Hx Alcohol Use: No Hx Substance Use: No Preferred Language: Welsh Communication Ability: Effective Visual Impairment: Limited Hearing Ability: Hard of Hearing Marriage Counselor Minister Required: No Beliefs That Will Affect Care: None marital status: Single Current Living Situation: Long Term Current Living Situation Comment: BROTHER AND FATHER current occupational status: retired How many Children do You have: 0 Feels Safe at Home: Yes Safety Concerns: Feels Safe At This Time Diet: regular during the past year weight has: remained stable Dental Care, Regularly: Yes Physical Activity Frequency: Does not Exercise Seatbelt Use: always Sunscreen Use: No Assistive Devices: BiPap, Denture - Upper, Glasses, Walker and Wheelchair Review of Systems Review of Systems: Unobtainable due to mental health condition Physical Exam Constitutional: WD/WN, vitals as above + ill appearing, + morbidly obese and + lethargic; no acute distress Eyes: + anicteric sclerae Respiratory: no respiratory distress Auscultation: + diminished lung sounds and + crackles Cardiovascular: Rate/Rhythm: regular rate and regular rhythm Heart Sounds: normal S1 and normal S2 Extremities: + edema and + varicosities Skin: + skin atrophy Neurologic: moves extremities Psychiatric: Orientation: alert, oriented to person, oriented to place and cooperative Results & Data Vital Signs (Past 12 Hours) Vital Signs Temp Pulse Pulse Resp BP BP Pulse Ox 12/09/24 09:17 85 23 95 12/09/24 08:13 36.2 C L 72 24 106/43 L 89 L 12/09/24 07:30 70 12/09/24 07:30 12/09/24 07:11 70 22 93 12/09/24 03:03 36.3 C L 68 25 H 140/66 92 12/09/24 02:20 68 20 93 12/08/24 23:28 85 21 95 O2 Del Method FiO2 12/09/24 09:17 BiPAP 40 12/09/24 08:13 BiPAP 12/09/24 07:30 12/09/24 07:30 BiPAP 40 12/09/24 07:11 40 12/09/24 03:03 BiPAP 12/09/24 02:20 40 12/08/24 23:28 40 PG Care Time/CCT Total # of Minutes Spent Total Time Spent with Patient: Total time spent is greater than 50% in coordination of care (as documented) at patient's floor/unit and/or counseling patient: Coding Level of Care Code 14031 INT INP/OBS CARE 375MIN Diagnoses PETE (acute kidney injury) N17.9 Acute hyperkalemia E87.5 Altered mental status R40.0 Altered mental status type: somnolence Anemia D64.9 Anemia type: unspecified type Chronic diastolic CHF (congestive heart failure) I50.32 Obesity hypoventilation syndrome E66.2 (3) Altered mental status Altered mental status type: somnolence Qualified Code(s): R40.0 - Somnolence (4) Anemia Anemia type: unspecified type Qualified Code(s): D64.9 - Anemia, unspecified
[2024-12-09] MEDS: DAPTOmycin 375 MG in SYRINGE 0 ML IV SCH (11:38)
--- NOTE | 2024-12-09 12:29 | Palliative Care Progress Note ---
Date of Service December 09, 2024 Assessment & Plan (1) Palliative care by specialist: Plan: Met with pt's sister/HCPOA Dianna and her other sister Elaine at bedside today. Introduced Palliative Medicine and explained our role in advanced care planning, symptom management and navigation through the progression of life limiting disease. Patient's sisters were receptive to palliative services for goals of care discussions. Reviewed we are different from hospice, a home health nurse visiting service. Patient contines to lack decisional capacity based on the inability to convey understanding of personal PMHx, current medical condition, treatment options nor the risks / benefits of those options, and lack of ability to make decisions based on such knowledge. Hospital does have written documentation of patient wishes concerning her chosen proxy for medical decisions. Durable HCPOA document properly executed by patient on 10/09/2022 designates pt's sisterkinsey Bowles ([phone]) as primary HCPOA and Norma Coffey ([phone]) as secondary HCPOA. It also documents that pt would not want resuscitation, mechanical ventilation, hemodialyisis nor artificial nutrition. Pt does require a proxy for medical decisions. (2) Dyspnea and respiratory abnormalities: Plan: Pt remains hypercapnic and acidotic (mixed) on Bipap 18/ with 30% FiO2, bipap requirements have increased overnight from 12/5 in ED. Pt more alert today but c/o dyspnea at rest and desaturates to 70s within minutes of being off Bipap. Pt has clearly established goals for DNR/DNI per her Advanced Directive on file. Discussed with family at bedside the difficulty managing volume status/COPD/heart failure iso acute on chronic renal failure. Family has requested continuing on current course of treatments, with no escalation to higher (ICU) level of care. Both HCPOAs Meme (Peg) and Dianna have shared that if pt declines to point of requiring mechanical vertilation or hemodynamic instability requiring vasopressors, they will transition to comfort directed care. (3) Counseling regarding goals of care: Plan: Spent 30 minutes speaking with pt's sisters Elaine and Dianna Coffey (secondary HCPOA) at bedside. Pt was mostly sleeping during this conversation, but did awaken intermittently c/o SOB and expressing she wants to go home. Discussed at length the progressive and debilitating nature of pt's heart failure, COPD and renal failure. Dianna agreed with her sisters that the pt has been clear about her wishes to not be kept alive on machines if she would not get better. Dianna shared thather sisters have told her that the pt's kidneys are failing and she requires HD at this time. Dianna shared that the pt has an advanced directive and would not want to be on HD nor artificial feeding. We discussed that given the pt's worsening COPD w/Bipap dependence, diastolic HF with relative hypotension, and worsening kidney failure, she is very ill and not showing signs of improvement since her arrival in ED yesterday. Discussed with Dianna and Elaine that if pt remains on current path, she will likely become hemodynamically unstable requiring vasopressor support in an ICU setting. Discussed that given her current clinical picture with the triad of heart failure, respiratory failure, and renal failure the pt will have a very uphill kinney to improved health. Discussed how HF can worsen renal function adding to volume overload which in turn makes the heart have to work even harder to perfuse kidneys and other vital organs. This in turn can cause pleural effusions/pulmonary edema worsening respiratory failure and oxygen demand. Discussed that is HD is indicated at this time and likely that the pt requires predatory animal exterminator HD. Dianna and Elaine reinforced that this is not consistent with the pt's values or goals of care. Elaine stated that she knows pt is very sick but "we have God on our side, and miracles do happen". Charlene reinforced desire for no further escalation in level of care,DNR/DNI, NO HD, feeding tube or vasopressor support. iDanna questioned if it might be possiblle for patient to ever make it home again. I shared concern that the pt is unlikely to survive this hospitalization. Dianna reinforced wishes expressed by her sisters, that if the patient has hemodynamic of respiratory collapse, she would ask that pt be kept comfortable and allowed a natural . (4) Encounter for hospice care discussion: Plan: Briefly discussed options of ongoing life prolonging therapies (up to limits listed above) vs transition to comfort directed care. Discussed hospice benefit: an interdisciplinary program offered by nurses, nurses aides, social workers, chaplains and a medical billing clerk for patients with a terminal condition and a life expectancy of less than 6 months. This is covered by Medicare at 100%/no out of pocket expense to patient and all meds/supplies needed by patient for the reason they are on hospice are paid for/covered by hospice. The goal is assure quality of life of the patient in their home setting (home, intermediate, inpatient hospice setting) by providing symptoms management, psychosocial and spiritual support. However, they cannot offer 24 hours care and if the family is unable to provide that care, they will have to consider personal care with out of pocket cost vs. intermediate placement. We discussed the goals of hospice as a patient service and the goals of care; we discussed EOL trajectories and transitions javier the emotional impact of realizing mortality as a concrete reality from prior abstract considerations. Pt was reassured that no matter where they are along this trajectory, they are not alone - their medical team will remain by their side through their journey. Discussed the pros/cons of accepting help when especially weakened and distressed by pain-which would also help provide relief/decrease caregiver burden/strain. Both pt's sisters reinforced desire to continue with conservative medical management, until pt declines to point of requiring ICU level care. Plan as above Admission and Anticipated Discharge Date Admission Date: December 08, 2024 Subjective Assessed pt at bedside today, she remains Bipap dependent 2/2 both hypoxia and CO2 retention. ABG done today while on Bipap and shows no improvement from admission VBG. Renal function continues to worsen and pt now c/o difficulty breathing. Per bedside RN pt showing signs of choking on secretions while on Bipap and desaturates in 70s quickly when taken off bipap for medications. Pt sisters Elaine and Dianna were at bedside. Review of Systems Review of Systems: All systems reviewed & are unremarkable except as noted in Subjective Physical Exam Constitutional: well developed, + morbidly obese and + lethargic Eyes: PERRL, conjunctivae normal, anicteric sclerae Respiratory: Diminished lung sounds, + Wheezing present. On Bipap, 30% Cardiovascular: regular rate/rhythm. No murmurs. Chronic b/l venous stasis w/ erythema on anterior right lower extremity. Gastrointestinal (Abdomen): normal bowel sounds, soft, nontender, no hepatosplenomegaly Psychiatric: Results & Data Vital Signs (Past 12 Hours) Vital Signs Temp Pulse Pulse Resp BP BP Pulse Ox 12/09/24 11:36 36.5 C 62 13 125/61 97 12/09/24 10:50 61 24 95 12/09/24 09:17 85 23 95 12/09/24 08:13 36.2 C L 72 24 106/43 L 89 L 12/09/24 07:30 70 12/09/24 07:30 12/09/24 07:11 70 22 93 12/09/24 03:03 36.3 C L 68 25 H 140/66 92 12/09/24 02:20 68 20 93 O2 Del Method FiO2 12/09/24 11:36 BiPAP 12/09/24 10:50 40 12/09/24 09:17 BiPAP 40 12/09/24 08:13 BiPAP 12/09/24 07:30 12/09/24 07:30 BiPAP 40 12/09/24 07:11 40 12/09/24 03:03 BiPAP 12/09/24 02:20 40 Laboratory Results Abnormal lab results 12/08/24 12/08/24 12/08/24 Range/Units 10:34 13:07 16:20 RBC 2.87 L (4.20-5.40) M/uL Hgb 8.3 L (12.0-16.0) g/dl Hct 30.7 L (37.0-47.0) % MCV 107.0 H (80.0-100.0) fL MCHC 27.0 L (32.0-36.0) g/dL RDW Std Deviation 68.3 H (36.4-46.3) fL RDW Coeff of Shannan 17.3 H (11.5-14.5) % Neut # (Auto) 6.72 H (1.40-6.50) K/uL Lymph # (Auto) 0.77 L (1.20-3.40) K/uL [place] # (Auto) 0.99 H (0.11-0.59) K/uL Immature Gran # (Auto) 0.28 H (0.01-0.20) K/uL Absolute Nucleated RBC 0.17 H (0.00-0.12) K/uL PT (9.0-12.0) Seconds INR (0.9-1.1) ABG pH (7.35-7.45) ABG pCO2 (35-46) mmHg ABG HCO3 (19-24) mmol/L ABG O2 Saturation (90-95) % ABG Base Excess (-9-1.8) mEq/L VBG pH (7.36-7.41) VBG pCO2 (38-50) mmHg Potassium 6.9 H* 5.7 H (3.5-5.1) mmol/L Chloride 97 L (98-107) mmol/L Carbon Dioxide 36 H (21-32) mmol/L BUN 66 H 69 H (6-23) mg/dl Creatinine 4.11 H 4.35 H (0.6-1.2) mg/dl Glucose 220 H (70-99(Fasting)) mg/dl POC Glucose (70-99) mg/dl Calcium 8.5 L (8.6-10.3) mg/dl B-Natriuretic Peptide 578 H (0-100) pg/ml Free T4 0.56 L (0.61-1.60) ng/dl Staphylococcus sp PCR DETECTED A (NotDetected) 12/08/24 12/08/24 12/08/24 Range/Units 16:23 18:13 22:40 RBC (4.20-5.40) M/uL Hgb (12.0-16.0) g/dl Hct (37.0-47.0) % MCV (80.0-100.0) fL MCHC (32.0-36.0) g/dL RDW Std Deviation (36.4-46.3) fL RDW Coeff of Shannan (11.5-14.5) % Neut # (Auto) (1.40-6.50) K/uL Lymph # (Auto) (1.20-3.40) K/uL [place] # (Auto) (0.11-0.59) K/uL Immature Gran # (Auto) (0.01-0.20) K/uL Absolute Nucleated RBC (0.00-0.12) K/uL PT (9.0-12.0) Seconds INR (0.9-1.1) ABG pH (7.35-7.45) ABG pCO2 (35-46) mmHg ABG HCO3 (19-24) mmol/L ABG O2 Saturation (90-95) % ABG Base Excess (-9-1.8) mEq/L VBG pH 7.24 L (7.36-7.41) VBG pCO2 93 H (38-50) mmHg Potassium 5.8 H 5.8 H (3.5-5.1) mmol/L Chloride 97 L (98-107) mmol/L Carbon Dioxide 37 H 38 H (21-32) mmol/L BUN 69 H 72 H (6-23) mg/dl Creatinine 4.33 H 4.43 H (0.6-1.2) mg/dl Glucose 205 H 159 H (70-99(Fasting)) mg/dl POC Glucose 228 H (70-99) mg/dl Calcium 8.3 L (8.6-10.3) mg/dl B-Natriuretic Peptide (0-100) pg/ml Free T4 (0.61-1.60) ng/dl Staphylococcus sp PCR (NotDetected) 12/09/24 12/09/24 12/09/24 Range/Units 00:42 04:09 06:01 RBC (4.20-5.40) M/uL Hgb (12.0-16.0) g/dl Hct (37.0-47.0) % MCV (80.0-100.0) fL MCHC (32.0-36.0) g/dL RDW Std Deviation (36.4-46.3) fL RDW Coeff of Shannan (11.5-14.5) % Neut # (Auto) (1.40-6.50) K/uL Lymph # (Auto) (1.20-3.40) K/uL [place] # (Auto) (0.11-0.59) K/uL Immature Gran # (Auto) (0.01-0.20) K/uL Absolute Nucleated RBC (0.00-0.12) K/uL PT 40.0 H (9.0-12.0) Seconds INR 4.2 H (0.9-1.1) ABG pH (7.35-7.45) ABG pCO2 (35-46) mmHg ABG HCO3 (19-24) mmol/L ABG O2 Saturation (90-95) % ABG Base Excess (-9-1.8) mEq/L VBG pH (7.36-7.41) VBG pCO2 (38-50) mmHg Potassium 5.9 H (3.5-5.1) mmol/L Chloride (98-107) mmol/L Carbon Dioxide 39 H (21-32) mmol/L BUN 75 H (6-23) mg/dl Creatinine 4.69 H* (0.6-1.2) mg/dl Glucose 104 H (70-99(Fasting)) mg/dl POC Glucose 163 H 110 H (70-99) mg/dl Calcium 7.9 L (8.6-10.3) mg/dl B-Natriuretic Peptide (0-100) pg/ml Free T4 (0.61-1.60) ng/dl Staphylococcus sp PCR (NotDetected) 12/09/24 12/09/24 Range/Units 06:15 10:28 RBC 2.62 L (4.20-5.40) M/uL Hgb 7.5 L (12.0-16.0) g/dl Hct 26.4 L (37.0-47.0) % MCV 100.8 H D (80.0-100.0) fL MCHC 28.4 L (32.0-36.0) g/dL RDW Std Deviation 62.7 H (36.4-46.3) fL RDW Coeff of Shannan 17.3 H (11.5-14.5) % Neut # (Auto) (1.40-6.50) K/uL Lymph # (Auto) (1.20-3.40) K/uL [place] # (Auto) (0.11-0.59) K/uL Immature Gran # (Auto) (0.01-0.20) K/uL Absolute Nucleated RBC (0.00-0.12) K/uL PT (9.0-12.0) Seconds INR (0.9-1.1) ABG pH 7.25 L (7.35-7.45) ABG pCO2 85 H (35-46) mmHg ABG HCO3 37 H (19-24) mmol/L ABG O2 Saturation 98.4 H (90-95) % ABG Base Excess 8.6 H (-9-1.8) mEq/L VBG pH (7.36-7.41) VBG pCO2 (38-50) mmHg Potassium (3.5-5.1) mmol/L Chloride (98-107) mmol/L Carbon Dioxide (21-32) mmol/L BUN (6-23) mg/dl Creatinine (0.6-1.2) mg/dl Glucose (70-99(Fasting)) mg/dl POC Glucose (70-99) mg/dl Calcium (8.6-10.3) mg/dl B-Natriuretic Peptide (0-100) pg/ml Free T4 (0.61-1.60) ng/dl Staphylococcus sp PCR (NotDetected) Diagnostic Findings Chest X-Ray 12/08/24 10:12 XR chest 1V portable CLINICAL HISTORY: weakness COMPARISON STUDY: Chest radiograph November 22, 2024. FINDINGS: There is no pneumothorax. Small bilateral pleural fusions are present. Cardiomegaly is again noted. Mediastinal contours are stable. Interstitial thickening and bilateral perihilar opacities have progressed since prior exam. IMPRESSION: 1. Progression of interstitial and alveolar pulmonary edema since prior exam. 2. Cardiomegaly. 3. Small bilateral pleural effusions. ACT 112: Negative or not required by law. Electronically signed by: Branden Hassan M.D. 12/08/2024 11:[address] 12/08/24 10:12 CT OF THE HEAD WITHOUT CONTRAST CLINICAL HISTORY: Altered mental status. COMPARISON STUDY: MRI of the brain July 14, 2014. Head CT June 04, 2020. CT DOSE: 1250.21 mGy.cm TECHNIQUE: Helical axial images of the head were obtained without IV contrast. Automated exposure control was utilized for the study. A dose lowering technique was utilized adhering to the principles of ALARA. FINDINGS: This study is mildly compromised by motion artifact. No acute in tracranial hemorrhage, midline shift or mass effect is present. The ventricular system is unremarkable. The basal cisterns are patent. No extra-axial collections are present. There are no findings to suggest acute dural sinus thrombosis or acute territorial infarct. No significant calvarial abnormalities are present. Visualized portions of the sinuses and mastoid air cells are clear. IMPRESSION: No acute intracranial findings. Mild motion artifact. ACT 112: Negative or not required by law. Electronically signed by: Branden Hassan M.D. 12/08/2024 12:51 PM Medications Administered Current Inpatient Medications Albuterol (Albuterol 0.083% Nebu Soln 3 Ml Vial) 2.5 mg NEB Q4H PRN; Protocol PRN Reason: Shortness Of Breath Or Wheezing Stop: 01/08/25 08:16 Last Admin: 12/09/24 09:17 Dose: 2.5 mg Amiodarone HCl (Amiodarone 200 Mg Tab) 200 mg PO QAM [facility] Stop: 01/08/25 08:59 Last Admin: 12/09/24 08:44 Dose: 200 mg Dextrose (Dextrose 50% 50 Ml Syringe) 25 - 50 ml IV UD PRN; Protocol PRN Reason: Hypoglycemia Protocol Stop: 01/07/25 16:29 Glucagon (Glucagon For Inj 1 Mg Vial) 1 mg SQ UD PRN; Protocol PRN Reason: Hypoglycemia Protocol Stop: 01/07/25 16:29 Glucose (Glucose 40% Gel 15 Gm Tube) 15 - 30 gm PO UD PRN; Protocol PRN Reason: Hypoglycemia Protocol Stop: 01/07/25 16:29 Glucose (Glucose 10 Tab/Tube) 4 - 8 tab PO UD PRN; Protocol PRN Reason: Hypoglycemia Protocol Stop: 01/07/25 16:29 Bumetanide 2 mg/ Syringe 8 mls @ 4 mls/min IV BID@0900,1700 [facility] Stop: 01/07/25 16:59 Last Admin: 12/08/24 18:24 Dose: 4 mls/min Daptomycin 375 mg/ Syringe 7.5 mls @ 3.75 mls/min IV Q48H [facility]; Protocol Stop: 12/19/24 10:29 Last Admin: 12/09/24 11:38 Dose: 3.75 mls/min Sodium Chloride (Nss) 1,000 mls @ 80 mls/hr IV .[id number] [facility] Stop: 12/10/24 10:14 Last Admin: 12/09/24 10:32 Dose: 80 mls/hr Insulin Aspart (Insulin Aspart Per Unit Charge) 0 units SC Q6 [facility] Stop: 01/07/25 16:29 Last Admin: 12/09/24 12:19 Dose: Not Given Levothyroxine Sodium (Levothyroxine Sodium 75 Mcg Tablet) 75 mcg PO DAILYBB [facility] Stop: 01/08/25 06:29 Last Admin: 12/09/24 06:10 Dose: 75 mcg Metoprolol Tartrate (Metoprolol Tartrate 25 Mg Tab) 25 mg PO BID [facility] Stop: 01/07/25 20:59 Last Admin: 12/09/24 08:44 Dose: 25 mg Miscellaneous (Carbohydrates For Hypoglycemia ) 15 - 30 gm PO UD PRN PRN Reason: Hypoglycemia Treatment Stop: 01/07/25 16:29 Miscellaneous Information (Pharmacy Glycemic Mgmt Consult) 1 each N/A UD PRN; Protocol PRN Reason: Consult Stop: 01/07/25 16:04 Sodium Zirconium Cyclosilicate (Sodium Zirconium Cyclosilicate 10 Gm Packet) 10 gm PO TID [facility] Stop: 12/11/24 09:01 Warfarin Sodium (Warfarin Sod 2.5 Mg Tab) 2.5 mg PO DAILY@1600 [facility] Stop: 01/08/25 15:59 PG Care Time/CCT Total # of Minutes Spent Total Time Spent with Patient: Total time spent is greater than 50% in coordination of care (as documented) at patient's floor/unit and/or counseling patient: Advanced Care Planning 43803 Advanced Care Planning 30 Min [place] [address] SUB INP/OBS CARE 2/35MIN Patient Type Established History Expanded Problem Focused Exam Expanded Problem Focused Medical Decision Making Moderate Complexity Diagnoses Palliative care by specialist Z51.5 Dyspnea and respiratory abnormalities R06.00; R06.89 Counseling regarding goals of care Z71.89 Encounter for hospice care discussion Z71.89 Additional Codes Advanced Care Planning - 61683 Advanced Care Planning 30 Min: 64228 Advanced Care Planning 30 Min ([id number])
--- NOTE | 2024-12-09 14:26 | Hospitalist Progress Note ---
Date of Service December 09, 2024 Assessment & Plan (1) Acute on chronic respiratory failure with hypoxia and hypercapnia: (2) Acute on chronic kidney failure: (3) Acute respiratory distress: (4) PETE (acute kidney injury): (5) Hyperkalemia: (6) Hypothyroidism: Plan 69-year-old woman with chronic respiratory failure, CONSTANCE/OHS, CKD 3-4, CHF, Atrial flutter, PAD who presented to the ED on 12/08 from [facility] for reports of being lethargic from family. Patient recently hospitalized for septic shock due to right lower extremity cellulitis and was discharged on 12/05 to [facility]. #acute on chronic respiratory failure - BNP more elevated than usual and appearance of pulmonary congestion on chest x-ray, however, her intravascular volume status is unclear. she does have severe baseline CONSTANCE/OHS and her CPAP was not used at her side over the weekend because they could not figure out how to work her home machine #bilateral pleural effusions #acute on chronic HFpEF - obtained ABG this morning - continues to have acute on chronic hypercarbic respiratory failure pH 7.25/85 which is worse than last night's vbg - continue Bipap - vbg at 4 pm - DNI - discussed with RN, RT #PETE on CKD 3b-4 with hyperkalemia - Cr worsened overnight after bumex IV, currently 4.69, hyperkalemia K 5.9 on lokelma tid - continue - unclear precipitant - could be prerenal (was lethargic all weekend and not given meds), cardiorenal - has normal EF but she has elevated RVSP presumably pulmonary hypertension from CONSTANCE/OHS - no recent imaging, JO ANN probably wouldn't be helpful with body habitus would need CT-KUB but doubt she could tolerate lying flat today - continue saul, monitor UOP and daily BMP - trial gentle IV NS, repeat BMP 4pm - based on previously stated wishes, POLST, discussion with family she would not want hemodialysis - consulted Dr. Cervantes - reviewed recs in her note #UTI #positive blood culture - staph in 1/4 bottles, likely to be a contaminant - abnormal UA and urine culture with GPC in clusters - discussed with pharmacist, started daptomycin - will use bacteremia dosing for now since she is severely ill #Hypothyroidism TSH elevated at 4.695 w/ slightly low Free T4 - TSH was normal few weeks ago, likely euthyroid sick. Cont levothyroxine #A fib/flutter Recent cardioversion 12/05 Continue Metoprolol and Amiodarone #Type 2 Diabetes Most recent A1c 10/30/24 6.8% Sliding scale, adjust as necessary Pharmacy consulted to aide in management, appreciate recommendations. Morbid obesity BMI 63 DVT prophylaxis: supratherapeutic on warfarin Code status: DNR/DNI I discussed her plan of care with her sister at bedside as well as palliative care SAW SETTER today Iveth is critically ill with multiorgan failure and thus far has not improved with respect to respiratory status or PETE. Overall prognosis is poor. Admission and Anticipated Discharge Date Admission Date: December 08, 2024 Subjective On bipap, more alert, remains confused Sister is in room Physical Exam 2 Physical Exam: PHYSICAL EXAMINATION Last 24h vital signs reviewed, see documentation in flowsheet General: awake wearing BiPAP HEENT: Normocephalic, atraumatic, pupils round and equal, sclerae anicteric, no conjunctival injection, moist mucus membranes Lungs: difficult respiratory exam due to BiPAP, clear anteriorly Heart: Regular rate and rhythm, no murmurs. cannot see neck veins Abdomen: Soft, nontender, nondistended. Bowel sounds present. 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, hyperkeratosis of both feet/toes, area of previous cellulitis right proximal morrell fading, no warmth or fluctuance Neuro: awake, moves 4 extremities Psych: behavior Results & Data Results & Data Vital Signs (Past 12 Hours) Vital Signs Temp Pulse Pulse Resp BP BP Pulse Ox 12/09/24 11:36 97.7 F 62 13 125/61 97 12/09/24 10:50 61 24 95 12/09/24 09:17 85 23 95 12/09/24 08:13 97.2 F L 72 24 106/43 L 89 L 12/09/24 07:30 70 12/09/24 07:30 12/09/24 07:11 70 22 93 12/09/24 03:03 97.3 F L 68 25 H 140/66 92 12/09/24 02:20 68 20 93 O2 Del Method FiO2 12/09/24 11:36 BiPAP 12/09/24 10:50 40 12/09/24 09:17 BiPAP 40 12/09/24 08:13 BiPAP 12/09/24 07:30 12/09/24 07:30 BiPAP 40 12/09/24 07:11 40 12/09/24 03:03 BiPAP 12/09/24 02:20 40 Laboratory Results 12/09/24 06:15 12/09/24 04:09 PG Care Time/CCT Total # of Minutes Spent Total Time Spent with Patient: Total time spent is greater than 50% in coordination of care (as documented) at patient's floor/unit and/or counseling patient: Coding Level of Care Code 02407 SUB INP/OBS CARE 3/50MIN Diagnoses Acute on chronic respiratory failure with hypoxia and hypercapnia J96.21; J96.22 Acute on chronic kidney failure N17.9; N18.9 Acute renal failure type: unspecified Chronic kidney disease stage: unspecified stage Acute respiratory distress R06.03 PETE (acute kidney injury) N17.9 Hyperkalemia E87.5 Hypothyroidism E03.9 (2) Acute on chronic kidney failure Acute renal failure type: unspecified Chronic kidney disease stage: u nspecified stage Qualified Code(s): N17.9 - Acute kidney failure, unspecified; N18.9 - Chronic kidney disease, unspecified
[2024-12-09] MEDS: SODIUM ZIRCONIUM CYCLOSILICATE 10 GM PACKET PO SCH (14:39)
--- NOTE | 2024-12-09 15:12 | Pharmacy Report ---
Pharmacy Glycemic Short Note 2 - Date of Service December 09, 2024 - Glycemic Short BSG Results (Last 24 hours): 12/08/24 12/08/24 12/08/24 16:20 16:23 18:13 Glucose 220 H 205 H POC Glucose 228 H 12/08/24 12/09/24 12/09/24 22:40 00:42 04:09 Glucose 159 H 104 H POC Glucose 163 H 12/09/24 12/09/24 06:01 11:24 Glucose POC Glucose 110 H 93 OUTPATIENT ANTIDIABETIC REGIMEN: * basaglar 20 units bid, lispro ssi ASSESSMENT: * 69 year old with respiratory failure/UTI/PETE. Pharmacy consulted for glycemic management. Received total of 27 units of insulin yesterday, of which 20 units were basal insulin. * Fasting BSG 110 mg/dL - no po intake noted as patient on continuous bipap. Will hold further basal today as Scr continues to worsen and utilize novolog for now. PLAN FOR INPATIENT GLYCEMIC CONTROL: * Hold outpatient oral diabetes medications * Basal insulin * Lantus - hold * Bolus insulin * NovoLog per scale ACHS or Q6hrs while NPO * Goal Range: Low 110 mg/dL - High 160 mg/dL * Correction Factor: 30 mg/dL/unit * Nutritional / Prandial insulin per carb ratio of 1 unit per 10 grams CHO consumed
[2024-12-09 15:22] VITALS: BP 142/63; TEMP 97.5
[2024-12-09] MEDS: DAPTOmycin 200 MG in SYRINGE 0 ML IV ONE (15:26)
[2024-12-09 15:42] VITALS: PULSE 64; RESP 20; O2SAT 97
[2024-12-09] MEDS ORDERED: WARFARIN SOD 2.5 MG TAB PO SCH (16:00)
[2024-12-09 16:07] LABS: Base Excess VBG 9.2 mEq/L; HCO3 VBG 39 mmol/L; Oxygen Saturation VBG 69.9 %; PCO2 VBG 79 mmHg (38-50); PO2 VBG 40 mmHg
[2024-12-09] MEDS ORDERED: ONDANSETRON INJ 2 MG/ML 2 ML VIAL IV PRN (16:28)
[2024-12-09] MEDS ORDERED: ATROPINE SULFATE 1% OP SOLN 5 ML BTL SL PRN (16:28)
--- NOTE | 2024-12-09 16:28 | Communication Note ---
Date of Service: December 09, 2024 UOP has been 50 mL of tea-colored for the entire day. vbg this afternoon 7. I met with Iveth and her sister Tabitha at bedside this afternoon as well as RN Felix. Iveth is awake and oriented to situation. She confirms she would not want aggressive interventions like intubation or hemodialysis. She wants to take off the bipap and transition to comfort measures. Tabitha is contacting [facility] and will remove bipap and change to TALENT ACQUISITION COORDINATOR when desired by Iveth and her family.
[2024-12-09 16:42] LABS: BUN Creatinine Ratio 16.1 (10-20); Calcium 7.7 mg/dl (8.6-10.3); Creatinine Clr Calc Pharmacy 17.4 ml/min; Potassium 5.6 mmol/L (3.5-5.1)
[2024-12-09] MEDS: LORazepam 2 MG/1 ML VIAL IV PRN (21:08)
[2024-12-10] MEDS: GLYCOPYRROLATE 0.2 MG/ML VIAL IV PRN (01:36)
[2024-12-10] MEDS: HYDROmorphone INJ 0.5 MG/0.5 ML SYR IV PRN (02:30)
--- NOTE | 2024-12-10 17:08 | Hospitalist Progress Note ---
Date of Service December 10, 2024 Assessment & Plan (1) Acute on chronic respiratory failure with hypoxia and hypercapnia: (2) Acute on chronic kidney failure: (3) Acute respiratory distress: (4) PETE (acute kidney injury): (5) Hyperkalemia: (6) Hypothyroidism: Plan 69-year-old woman with chronic respiratory failure, CONSTANCE/OHS, CKD 3-4, CHF, Atrial flutter, PAD who presented to the ED on 12/08 from [facility] for reports of being lethargic from family. Patient recently hospitalized for septic shock due to right lower extremity cellulitis and was discharged on 12/05 to [facility]. Iveth presented in acute on chronic hypercarbic respiratory failure, acute metabolic encephalopathy due to hypercarbia, and severe PETE. According to her family Iveth's CPAP was brought to [facility] but it wasn't used because staff did not know how to use the machine, no pm meds given Sunday, AM meds given Sunday but she was lethargic, no meds thereafter presumably because too lethargic. In ED dose of IV bumex given for respiratory failure, but renal function worsened. She was treated with continuous Bipap for several days, mentation did improve by afternoon of 12/09 but hypercarbia persisted. PETE was severe with rising Cr, hyperkalemia treated with lokelma, UOP of only 50 mL 12/09 despite challenge with normal saline. [employer]illiande[employer] Lopper consulted. Prognosis poor for renal recovery from dense PETE on CKD stage 3b-4. Unclear whether prerenal, cardiorenal, other. She does have pulmonary hypertension and chronic diastolic heart failure. I met with Iveth and her sister Tabitha at bedside afternoon of 12/09 when Iveth was alert and oriented She confirmed she would not want aggressive interventions like intubation or hemodialysis. She wanted to take off the bipap and transition to comfort measures. Family gathered then bipap was discontinued evening of 12/09, comfort measures initiated. Comfort care -prognosis hours to few days because of severe respiratory and renal failure -hospice [facility] referral -PRN hydromorphone IV and PRN lorazepam IV -discussed with palliative care ARAMIS Khan -I updated one of her sisters at bedside today Diagnoses this admission #acute on chronic hypoxic and hypercarbic respiratory failure, underlying CONSTANCE/OHS #severe PETE on CKD 3b-4 with hyperkalemia #UTI ruled out - yessi in urine which is likely colonizer, asymptomatic #abnormal blood culture - two skin staph species in 1/4 bottles from ED consistent with contaminant #hypothyroidism #afib/flutter #DM type 2 #morbid obesity BMI 63 Admission and Anticipated Discharge Date Admission Date: December 08, 2024 Subjective Not alert. Her sister is at bedside Physical Exam Physical Exam: PHYSICAL EXAMINATION Last 24h vital signs reviewed, see documentation in flowsheet General: unresponsive, appears comfortable HEENT: eyes closed Lungs: moving very little air, very small chest rise Heart: Regular rate and rhythm, no murmurs. Abdomen: Soft, nondistended. : small amount of cola colored urine in saul bag Extremities: remain warm Neuro: unresponsive Psych: no agitation or distress Results & Data Results & Data Vital Signs (Past 12 Hours) Vital Signs O2 Del Method 12/10/24 09:00 Nasal Cannula PG Care Time/CCT Total # of Minutes Spent Total Time Spent with Patient: Total time spent is greater than 50% in coordination of care (as documented) at patient's floor/unit and/or counseling patient: Coding Level of Care Code 58676 SUB INP/OBS CARE 2/35MIN Diagnoses Acute on chronic respiratory failure with hypoxia and hypercapnia J96.21; J96.22 Acute on chronic kidney failure N17.9; N18.9 Acute renal failure type: unspecified Chronic kidney disease stage: unspecified stage Acute respiratory distress R06.03 PETE (acute kidney injury) N17.9 Hyperkalemia E87.5 Hypothyroidism E03.9 (2) Acute on chronic kidney failure Acute renal failure type: unspecified Chronic kidney disease stage: unspecified stage Qualified Code(s): N17.9 - Acute kidney failure, unspecified; N18.9 - Chronic kidney disease, unspecified
--- NOTE | 2024-12-10 18:08 | Palliative Care Progress Note ---
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 Nausea/vomitting zofran 4mg IVP q4h PRN Agitation ativan 0.5mg IVP q2h PRN Hyperactive delirium haldol 5mg IVP q6h PRN Secretions - if repositioning not effective robinul 0.4mg IV q4h PRN atropine SL 3 drops Q1h PRN Nursing care: Discontinue all medications not directed towards comfort. Detether pt from IV tubing, monitor cables, and check vitals once per shift. Please continue HFNC and titrate down as able for patient comfort. Use medications above PRN for dyspnea/tachypnea and do not increase oxygen once titrated down. Assess q1h for pain/dyspnea and treat accordingly. (3) Encounter for end of life education, guidance and counseling: Plan: Spent 35 min at bedside discussing end of life care with pt's sister Elaine. Anticipatory guidance offered. Discussed changes pt may move through in the dying process including but not limited to sleeping more, disorientation when awake, restlessness, diminished senses/inability to respond to stimulus although ability to be aware of them remains intact longer, and changes in body temperatures, skin changes/mottling/cyanosis, respiratory pattern changes, and oral secretions. Family verbalized understanding. The goal is to assure a peaceful . * EOL Rally: When a person facing the end of life rallies, they seem to become "more stable" - may want to talk or even begin taking PO; this phenomenon is usually seen as a sudden burst of energy before . This period of perking up can be accompanied by such a notable change in mental clarity that is often referred to as terminal lucidity. This change in cognition and behavior goes against everything families learn about the physical signs that the end of life is near. It is important to note that evidence-based data is elusive, if nonexistent. Theories support that it may be a search for a final, strong connection. Also, as organs shut down, they can release a steroid like compound that briefly rouses the body - in the specific case of brain tumors, swelling occurs in the confined space of the skull. The edema shrinks as EOL care patients are weaned off food and drink, waking up the brain a bit. Families and caregivers may grasp at what seems to be a turnaround in a loved ones health, however, the EOL Rally is a hallmark pre- sign. It is not uncommon for patients to show improvement before : they may want to talk while others may become restless or act as if they need to start preparing for a trip. Some patients will become more relaxed yet remain tuned in to what is going on around them, others will show signs of physical stability when, seconds before, they seemed on the verge of letting go. A rally can last for a few moments or even days. Short or long, these temporary improvements can have a profound effect on loved ones who are keeping jain. Like a moment of clarity for someone who has dementia, a rally is one last opportunity to connect with a loved one. Each persons experience is unique and impossible to predict with total accuracy. Life is full of questions, and some of them simply are not meant to be answered. * Oxygen at EOL: For patients at the end of life, oxygen delivered by a nasal cannula provides no additional symptomatic benefit for relief of refractory dyspnea in patients with life-limiting illness compared with room air: there's a point at which that the oxygen level gets so low that it's no longer compatible with life. By providing supplemental oxygen, the dying process will be unnecessarily prolonged. Please use less burdensome but more effective strategies such as comfort care meds, oscillating fan, massage, repositioning, etc. (Andrew AP, Gumaro CF, Lorraine PA, et al. Effect of palliative oxygen versus room air in relief of breathlessness in patients with refractory dyspnoea: a double-blind, randomised controlled trial. Lancet. 2010;376(5898):784-793. doi:10.1016/I7380-0632069-5092(46)61582-4) * Secretions at EOL/management: I discussed with family that as the level of consciousness decreases in the dying process, patients lose their ability to swallow and clear oral secretions. As air moves over the secretions, which have pooled in the oropharynx and bronchi, the resulting turbulence produces noisy ventilation with each breath, described as gurgling or rattling noises. While there is no evidence that patients find this rattle disturbing, evidence from bereaved surveys suggests the noises can be disturbing to the patients visitors and caregivers who may fear that the patient is choking to . We recommend a combination of Non- Pharmacological and Pharmacological Treatments: * 1. Position the patient on their side or in a semi-prone position to facilitate postural drainage * 2. Communication with family and caregivers to reaffirm commitment to their loves ones care, reduce anxiety and fears. * 3. Gentle oropharyngeal suctioning is used although this can be ineffective when fluids are beyond the reach of the catheter. Avoid deep suctioning as it is very irritating. Note that frequent suctioning is disturbing to both the patient and the visitors. * 4. Reduction of fluid intake. * 5. Consider a 1-2 min Trendelenburg positioning, to move fluids up into the oropharynx for easier removal BUT note that ASPIRATION RISK WILL INCREASE. * 6. Muscarinic receptor blockers (anti-cholinergic drugs) are most often used: glycopyrrolate (Robinul), scopolamine (Transderm Scop), hyoscyamine and atropine. Of these, I prefer to using glycopyrrolate as first line treatment, because it is a quaternary amine (therefore does not cross the blood-brain barrier) which reduces the potential anti cholinergic agent associated SHIRT CREASER toxicity (sedation, delirium). * 7. Glycopyrrolate has five times the anti-secretory potency compared to atropine, while scopolamine dries/thickens secretions and causes dry mouth, which may be more distressing to the patient and detract from comfort. 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 Pt is unresponsive to verbal and gentle tactile stimuli, did not attempt to awaken in concert with comfort directed care. Respiratory effort increased, rate 26/min with moderate accessory muscle use. Encouraged BSRN to administer dilaudid PRN for pain, dyspnea or tachypnea to keep resp rate under 22bpm. Pt's sister Elaine was at bedside. Review of Systems Review of Systems: Unobtainable due to cognitive status Physical Exam Physical Exam: Last 24h vital signs reviewed, see documentation in flowsheet General: unresponsive, appears comfortable HEENT: eyes closed Lungs: moving very little air, very small chest rise, tachypneic at 26/min with +head bobbing and accessory muscle use Heart: Regular rate and rhythm, no murmurs. Abdomen: Soft, nondistended. : small amount of cola colored urine in saul bag Extremities: remain warm Neuro: unresponsive to verbal / gentle tactile stimuli Results & Data Vital Signs (Past 12 Hours) Vital Signs O2 Del Method 12/10/24 09:00 Nasal Cannula Laboratory Results No further labs or diagnostics in concert with comfort directed care. Diagnostic Findings No further labs or diagnostics in concert with comfort directed care. Medications Administered Current Inpatient Medications Albuterol (Albuterol 0.083% Nebu Soln 3 Ml Vial) 2.5 mg NEB Q4H PRN; Protocol PRN Reason: Shortness Of Breath Or Wheezing Stop: 01/08/25 08:16 Last Admin: 12/09/24 09:17 Dose: 2.5 mg Amiodarone HCl (Amiodarone 200 Mg Tab) 200 mg PO QAM [place] Stop: 01/08/25 08:59 Last Admin: 12/10/24 08:41 Dose: Not Given Atropine Sulfate (Atropine Sulfate 1% Op Soln 5 Ml Btl) 4 drops SL Q1H PRN PRN Reason: Secretions or pulm congestion Stop: 01/08/25 16:27 Glycopyrrolate (Glycopyrrolate 0.2 Mg/Ml Vial) 0.4 mg IV Q4H PRN PRN Reason: Rattling Secretions or Pulm Congestion Stop: 01/08/25 16:27 Last Admin: 12/10/24 01:36 Dose: 0.4 mg Hydromorphone HCl (Hydromorphone Inj 0.5 Mg/0.5 Ml Syr) 0.5 mg IV Q2H PRN PRN Reason: Pain or Respiratory Distress Stop: 12/23/24 16:27 Last Admin: 12/10/24 17:35 Dose: 0.5 mg Lorazepam (Lorazepam 2 Mg/1 Ml Vial) 0.5 mg IV Q2H PRN PRN Reason: Anxiety/Agitation or dyspnea Stop: 01/08/25 16:27 Last Admin: 12/10/24 11:55 Dose: 0.5 mg Ondansetron HCl (Ondansetron Inj 2 Mg/Ml 2 Ml Vial) 4 mg IV Q4H PRN PRN Reason: Nausea &/or Vomiting Stop: 01/08/25 16:27 PG Care Time/CCT Total # of Minutes Spent Total Time Spent with Patient: Total time spent is greater than 50% in coordination of care (as documented) at patient's floor/unit and/or counseling patient: Coding [place] [address] SUB INP/OBS CARE 2/35MIN Patient Type Established History Expanded Problem Focused Exam Expanded Problem Focused Medical Decision Making Moderate Complexity Diagnoses Palliative care by specialist Z51.5 Comfort measures only status Z51.5 Encounter for end of life education, guidance and counseling
--- NOTE | 2024-12-11 15:41 | Discharge Summary ---
Discharge Summary Date of Service December 10, 2024 Principal Dx & Hospital Course #1 = Principal Diagnosis (1) Acute on chronic respiratory failure with hypoxia and hypercapnia: (2) Acute on chronic kidney failure: (3) Acute respiratory distress: (4) PETE (acute kidney injury): (5) Hyperkalemia: (6) Hypothyroidism: Plan 69-year-old woman with chronic respiratory failure, CONSTANCE/OHS, CKD 3-4, CHF, Atrial flutter, PAD who presented to the ED on 12/08 from [facility] for reports of being lethargic from family. Patient recently hospitalized for septic shock due to right lower extremity cellulitis and was discharged on 12/05 to [facility]. Iveth presented in acute on chronic hypercarbic respiratory failure, acute metabolic encephalopathy due to hypercarbia, and severe PETE. According to her family Iveth's CPAP was brought to [facility] but it wasn't used because staff did not know how to use the machine, no pm meds given Sunday, AM meds given Sunday but she was lethargic, no meds thereafter presumably because too lethargic. In ED dose of IV bumex given for respiratory failure, but renal function worsened. Initially oliguric but quickly progressed to anuria. She was treated with continuous Bipap for several days, mentation did improve by afternoon of 12/09 but hypercarbia persisted, quickly tachypneic when bipap paused, and continued to require continuous bipap. PETE was severe with rising Cr, hyperka lemia treated with lokelma, UOP of only 50 mL 12/09 despite challenge with normal saline. [employer]k consulted. Prognosis poor for renal recovery from dense PETE on CKD stage 3b-4. Unclear whether prerenal, cardiorenal, other. She does also have pulmonary hypertension and chronic diastolic heart failure. I met with Iveth and her sister Tabitha at bedside afternoon of 12/09 when Iveth was alert and oriented to the situation. She confirmed she would not want aggressive interventions like intubation or hemodialysis. She wanted to take off the bipap and transition to comfort measures. Family gathered then bipap was discontinued evening of 12/09, comfort measures initiated. By following morning Iveth was unresponsive and in severe respiratory failure, she in the afternoon. Diagnoses this admission #acute on chronic hypoxic and hypercarbic respiratory failure, underlying CONSTANCE/OHS #severe PETE on CKD 3b-4 with hyperkalemia #UTI ruled out - yessi in urine which is likely colonizer, asymptomatic #abnormal blood culture - two skin staph species in 1/ bottles from ED consistent with contaminant #hypothyroidism #afib/flutter #DM type 2 #morbid obesity BMI 63 Admission HPI Per Admitting Provider This is a 69 year old female with past medical history of chronic respiratory failure, CONSTANCE, CKD, CHF, Atrial flutter, PAD, anemia, TIA who presented to the ED on 12/08 from [facility] for reports of being lethargic from famliy. Patient recently was admitted to the hospital from 11/22/2024 to 12/05/2024 for RLE cellulitis causing sepsis complicated by ATN/PETE with hypercapnic respiratory failure. She complicated a course of antibiotics including daptomycin, cefepime, and flagyl. She complicated her antibiotic course while inpatient. She was then discharged to [facility] for rehab. Met with the patient's family at bedside and had a goals of care discussion with them. Patient's family states that after being discharged from the hospital she was not given any of her medications at the rehab facility until 3 pm yesterday. She also was not given her CPAP to use at bedside. Patient was able to text family to make them aware of this but then got progressively lethargic which prompted her to return back to the ED. Patient's family states that she does not want to be intubated or kept alive on machines. Patient's family would be open to the idea of dialysis. Patient seen and examined at bedside. Patient on BiPAP at time of encounter, resting comfortably in bed. She denied any pain to palpation of abdomen. Denied any pain to palpation of lower extremity. She denied CP. Discharge Exam PHYSICAL EXAMINATION Last 24h vital signs reviewed, see documentation in flowsheet General: unresponsive, appears comfortable HEENT: eyes closed Lungs: moving very little air, very small chest rise Heart: Regular rate and rhythm, no murmurs. Abdomen: Soft, nondistended. : small amount of cola colored urine in saul bag Extremities: remain warm Neuro: unresponsive Psych: no agitation or distress Discharge Plan Discharge Items Patient Disposition: Other Date/Time: 12/10/24 17:50 Hospital Stay Data Consultations 12/08/24 12:07 ED Decision to Admit Stat 12/08/24 16:05 Consult Palliative Care Routine 12/09/24 10:15 Consult Nephrology Routine Diagnostic Imagining Performed 12/08/24 10:12 CT head/brain wo con Stat Total Time Total Time Spent Total Time Spent (In Minutes): <30 min Coding Level of Care Code 88071 IN/OBS DISCH 30 MIN/LESS Diagnoses Acute on chronic respiratory failure with hypoxia and hypercapnia J96.21; J96.22 Acute on chronic kidney failure N17.9; N18.9 Acute renal failure type: unspecified Chronic kidney disease stage: unspecified stage Acute respiratory distress R06.03 PETE (acute kidney injury) N17.9 Hyperkalemia E87.5 Hypothyroidism E03.9
== END 2024-12-10 19:21 | disposition expired | DRG 189 ==
LOC: ED 10:04 → SUATTDRO 14:33 → 2S 14:33